=== PATIENT | male | born 1940 ===

== ENCOUNTER 2017-04-18 14:04 | Emergency (ER) | payer SELFPAY ==
[2017-04-18 14:14] VITALS: BP 146/80; PULSE 100; RESP 18; TEMP 96.9; O2SAT 99
--- NOTE | 2017-04-18 15:06 | ED PDOC ---
HPI: General Adult History Per: Patient <Brown,Jake - Last Filed: 04/18/17 14:59> <Vicente Garcia - Last Filed: 04/18/17 15:41> Time Seen by Provider: 04/18/17 14:20 Chief Complaint (Nursing): Abnormal Skin Integrity Additional Complaint(s): 77 y/o M c/o facial rash that began 8 days ago. Rash is over nose and bilateral maxillary areas, non-pruritic, painless, extending into left lip and now associated with tender left labial swelling since 3 days ago. No recent change in soap, clothing or contagious contact. Pt denies headache, fever, CP, SOB, abdominal pain or trauma. NKA. Medications: none PMHx: DM 2. HLD. Chronic bilateral lower back pain. PSHx: denied SHx: Denies Tobacco, Alcohol or rec drugs. 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 (Jake Brown) Supervising Attending Note <Jake Brown - Last Filed: 04/18/17 14:59> - Supervising Attending Note The Documented history was done by the: Physician Director Orange The documented physical exam was done by the: Physician Director Orange The documented procedures were done by the: Physician Director Orange - Attestation: I have personally seen and examined this patient.: Yes I have fully participated in the care of the patient.: Yes I have reviewed all pertinent clinical information, including history, physical exam and plan: Yes <Vicente Garcia - Last Filed: 04/18/17 15:41> - Notes: Notes:: Rash over face. No pain. No new soap, lotion, or anything new or different. (Vicente Garcia) Past Medical History - Medical History PMH: Diabetes, Hypercholesterolemia - Surgical History Surgical History: No Surg Hx - Family History Family History: States: No Known Family Hx <Jake Brown - Last Filed: 04/18/17 14:59> <Vicente Garcia - Last Filed: 04/18/17 15:41> Vital Signs: Last Vital Signs Temp 96.9 F L 04/18/17 14:09 Pulse 100 H 04/18/17 14:09 Resp 18 04/18/17 14:09 BP 146/80 04/18/17 14:09 Pulse Ox 99 04/18/17 15:20 - Home Medications Home Medications: Ambulatory Orders Medication Instructions Recorded DiphenhydrAMINE [Benadryl] 25 mg PO TID PRN 5 Days cap 04/18/17 predniSONE [predniSONE Tab] 20 mg PO BID 5 Days tab 04/18/17 - Allergies Allergies/Adverse Reactions: Allergies Allergy/AdvReac Type Severity Reaction Status Date / Time No Known Allergies Allergy Verified 01/04/16 15:45 Review of Systems Constitutional: Negative for: Fever, Chills Cardiovascular: Negative for: Chest Pain, Palpitations Respiratory: Negative for: Cough, Shortness of Breath, SOB with Exertion Gastrointestinal: Negative for: Nausea, Vomiting, Abdominal Pain Musculoskeletal: Positive for: Back Pain Skin: Positive for: Rash <Jake Brown - Last Filed: 04/18/17 14:59> Physical Exam - Physical Exam Appears: Positive for: Well, No Acute Distress Head Exam: Positive for: ATRAUMATIC Skin: Positive for: Rash (Face: presence of erythematous blanching maculo- papular dermatitis on nose and b/l maxillary areas.) ENT: Positive for: Normal ENT Inspection <Jake Brown - Last Filed: 04/18/17 14:59> - Physical Exam Head Exam: Positive for: ATRAUMATIC Skin: Positive for: Rash Neck: Positive for: Normal, Painless ROM, Supple Cardiovascular/Chest: Positive for: Regular Rate, Rhythm Respiratory: Positive for: Normal Breath Sounds <Vicente Garcia - Last Filed: 04/18/17 15:41> - ECG O2 Sat by Pulse Oximetry: 99 <Jake Brown - Last Filed: 04/18/17 14:59> <Vicente Garcia - Last Filed: 04/18/17 15:41> - Progress ED Course And Treament: 1535: Atypical dermatitis likely. Fu with clinic. AAOx3. Pain free. Tolerated PO. Ambulated with no issues. (Vicente Garcia) Medical Decision Making <Jake Brown - Last Filed: 04/18/17 14:59> <Vicente Garcia - Last Filed: 04/18/17 15:41> Medical Decision Makin77 y/o M presenting with facial maculopapular dermatitis. Plan: --Benadryl --Prednisone (Jake Brown) Disposition <Jake Brown - Last Filed: 04/18/17 14:59> - Patient ED Disposition Is Patient to be Admitted: No Counseled Patient/Family Regarding: Studies Performed, Diagnosis, Need For Followup, Rx Given - Disposition Disposition: Routine/Home Disposition Time: 15:36 <Vicente Garcia - Last Filed: 04/18/17 15:41> - Clinical Impression Clinical Impression: Dermatitis - Disposition Referrals: [facility] [Outside] - 04/19/17 Condition: STABLE Additional Instructions: Return if not better in 3 days. Prescriptions: DiphenhydrAMINE [Benadryl] 25 mg PO TID PRN 5 Days cap PRN Reason: Itching / Pruritus predniSONE [predniSONE Tab] 20 mg PO BID 5 Days tab Instructions: Dermatitis (ED) Forms: [employer] (Djiboutian) Print Language: GREENLANDIC
== END 2017-04-18 15:49 | disposition home or self-care (01) ==
LOC: H.ER 14:04
DX: L30.9 Dermatitis, unspecified (principal); E11.9 Type 2 diabetes mellitus without complications; E78.00 Pure hypercholesterolemia, unspecified

== ENCOUNTER 2017-09-04 13:25 | Inpatient (IN) | payer MEDICAID, OTHER ==
[2017-09-04] MEDS ORDERED: Sodium Chloride 0.9% 1,000 ML IV STA (14:08)
--- NOTE | 2017-09-04 14:12 | ED PDOC ---
HPI: General Adult Time Seen by Provider: 09/04/17 13:41 Chief Complaint (Nursing): Abnormal Labs History Per: Patient Onset/Duration Of Symptoms: Days (1) Current Symptoms Are (Timing): Still Present Severity: Moderate Pain Scale Rating Of: 0 Additional Complaint(s): Referred from [facility] for generalized weakness . Had outpt blood work this AM revealing pancytopenia with Hgb 6.2. No active bleeding . Denies chest pain, abd pain hematochezia, melena, or hematemesis. Past Medical History Vital Signs: Last Vital Signs Temp 98.1 F 09/04/17 13:30 Pulse 106 H 09/04/17 13:30 Resp 16 09/04/17 13:30 BP 154/75 H 09/04/17 13:30 Pulse Ox 100 09/04/17 13:30 - Medical History PMH: Diabetes, Hypercholesterolemia - Family History Family History: States: Unknown Family Hx - Home Medications Home Medications: Ambulatory Orders Medication Instructions Recorded DiphenhydrAMINE [Benadryl] 25 mg PO TID PRN 5 Days cap 04/18/17 predniSONE [predniSONE Tab] 20 mg PO BID 5 Days tab 04/18/17 - Allergies Allergies/Adverse Reactions: Allergies Allergy/AdvReac Type Severity Reaction Status Date / Time No Known Allergies Allergy Verified 01/04/16 15:45 Review of Systems ROS Statement: Except As Marked, All Systems Reviewed And Found Negative Constitutional: Positive for: Weakness, Malaise Cardiovascular: Negative for: Chest Pain Respiratory: Negative for: Shortness of Breath Gastrointestinal: Negative for: Nausea, Vomiting, Abdominal Pain, Diarrhea, Melena, Hematochezia, Hematemesis Genitourinary Male: Negative for: Hematuria Physical Exam - Reviewed Nursing Documentation Reviewed: Yes Vital Signs Reviewed: Yes - Physical Exam Appears: Positive for: Non-toxic, No Acute Distress Head Exam: Positive for: ATRAUMATIC, NORMAL INSPECTION, NORMOCEPHALIC Skin: Positive for: Normal Color, Warm, DRY Eye Exam: Positive for: EOMI, PERRL. Negative for: Normal appearance ( Conjunctivae pale) ENT: Positive for: Normal ENT Inspection Neck: Positive for: Normal, Painless ROM Cardiovascular/Chest: Positive for: Regular Rate, Rhythm Respiratory: Positive for: CNT, Normal Breath Sounds Gastrointestinal/Abdominal: Positive for: Normal Exam, Bowel Sounds, Soft Back: Positive for: Normal Inspection Extremity: Positive for: Normal ROM Neurologic/Psych: Positive for: Alert, Oriented - ECG O2 Sat by Pulse Oximetry: 100 Disposition - Clinical Impression Clinical Impression: Diabetes mellitus, Pancytopenia - Patient ED Disposition Is Patient to be Admitted: Yes - Disposition Disposition Time: 14:13 Condition: FAIR - Pt Status Changed To: Hospital Disposition Of: Inpatient - Admit Certification Admit to Inpatient:: After my assessment, the patient will require hospitalization for at least two midnights. This is because of the severity of symptoms shown, intensity of services needed, and/or the medical risk in this patient being treated as an outpatient. - POA Present On Arrival: None
[2017-09-04 14:46] LABS: BASO % 0.6 % (0.0-2.0); EOS % 1.3 % (0.0-4.0); LYMPH # 0.8 K/uL (1.0-4.3); LYMPH % 30.2 % (20.0-40.0); MEAN CELL VOLUME 92.6 fl (80.0-94.0); MEAN CORPUSCULAR HEMOGLOBIN 30.9 pg (27.0-31.0); MEAN CORPUSCULAR HGB CONC 33.4 g/dL (33.0-37.0); MEAN PLATELET VOLUME 7.3 fl (7.2-11.7); MONO % 36.1 % (0.0-10.0); NEUT # 0.9 K/uL (1.8-7.0); NEUT % 31.8 % (50.0-75.0); NRBC % 0.4 % (0.0-0.0); RED CELL DISTRIBUTION WIDTH 17.6 % (11.5-14.5); WHITE BLOOD COUNT 2.8 K/uL (4.8-10.8)
[2017-09-04 14:55] LABS: ALB/GLOB RATIO 0.9 (1.0-2.1); ALBUMIN 3.3 g/dL (3.5-5.0); CALCIUM 8.6 mg/dL (8.4-10.2)
[2017-09-04 14:58] LABS: HEMOGLOBIN 5.9 g/dL (12.0-18.0)
[2017-09-04 15:02] LABS: PLATELET COUNT 28 K/uL (130-400)
[2017-09-04 15:42] LABS: BASOPHIL 1 % (0-2); LYMPHOCYTE 38 % (20-50); MONOCYTE 29 % (0-10); NEUTROPHIL 32 % (42-75); PLATELET ESTIMATE DECREASED (NORMAL); TOTAL CELLS COUNTED 100
[2017-09-04 15:43] LABS: ANISOCYTOSIS SLIGHT
[2017-09-04 15:44] LABS: HYPOCHROMIC MODERATE; OVALOCYTES SLIGHT; SCHISTOCYTES SLIGHT; TEARDROP CELLS SLIGHT
--- NOTE | 2017-09-04 16:32 | CP.PCM.HP ---
History of Present Illness - History of Present Illness History of Present Illness: Vijay Bravo is a 77 yo M with PMH diabetes and hyperlipidemia presented to ED after receiving a phone call from the clinic about abnormal labs that he had drawn in the outpatient lab this morning. His outpatient labwork revealed H/H of 6.2/18.1, and a platelet count of 28. Pt admits to some occasional dizziness that has not been daily or debilitating, denies loss of balance, denies chest palpitations and/or shortness of breath. Denies hematuria , or monica blood in the stool. Complains of back pain and bilateral upper leg (thigh) and difficulty walking because of it; states he can walk 1.5 blocks at a time without stopping because of pain. Does not get short of breath. PMD: [facility], Dr. Martinez. PMH: DM2, HLD (does not take any medications) Past Surg hx: L foot Social hx: denies smoking now and in the past, denies alcohol use, denies drug use Family hx: mom w/ bone cancer, other family members w/ DM2 Allergies: NKDA Next of kin: Ottoniel Diaz (son) [phone] Code status: full code ED course: Vital signs - systolic BP in 150s; HR 90s-110s, afebrile, normal respirations/ O2 sat CBC redrawn- pancytopenia. WBC 2.8, Hgb 5.9, Hct 17.6, Plt 28 CMP: BUN 39, Cr 1.9 Present on Admission - Present on Admission Any Indicators Present on Admission: No Review of Systems - Constitutional Constitutional: absent: Chills, Fatigue, Lethargy, Night Sweats - EENT Eyes: As Per HPI, Change in Vision - Cardiovascular Cardiovascular: absent: Chest Pain, Dyspnea, Leg Edema - Respiratory Respiratory: absent: Dyspnea, Hemoptysis, Dyspnea on Exertion - Gastrointestinal Gastrointestinal: absent: Abdominal Pain, Diarrhea, Melena, Nausea, Vomiting - Genitourinary Genitourinary: As Per HPI. absent: Change in Urinary Stream, Hematuria - Musculoskeletal Musculoskeletal: As Per HPI, Arthralgias, Back Pain. absent: Numbness, Tingling - Integumentary Integumentary: absent: Bleeding Lesions Additional comments: malar-like rash on face - Neurological Neurological: As Per HPI. absent: Abnormal Gait, Focal Weakness, Headaches, Lack of Coordination, Paresthesias - Endocrine Endocrine: As Per HPI - Hematologic/Lymphatic Hematologic: absent: Easy Bleeding, Easy Bruising Past Patient History - Past Medical History & Family History Past Medical History?: Yes - Past Social History Smoking Status: Never Smoked Alcohol: None Drugs: Denies Home Situation {Lives}: Alone - CARDIAC Hx Cardiac Disorders: Yes Hx Hypercholesterolemia: Yes - PULMONARY Hx Respiratory Disorders: No - NEUROLOGICAL Hx Neurological Disorder: No - HEENT Hx HEENT Problems: No - RENAL Hx Chronic Kidney Disease: No - ENDOCRINE/METABOLIC Hx Endocrine Disorders: Yes (DM) Hx Diabetes Mellitus Type 2: Yes - HEMATOLOGICAL/ONCOLOGICAL Hx Blood Disorders: No - INTEGUMENTARY Hx Dermatological Problems: No - MUSCULOSKELETAL/RHEUMATOLOGICAL Hx Musculoskeletal Disorders: Yes Hx Back Pain: Yes - GASTROINTESTINAL Hx Gastrointestinal Disorders: No - GENITOURINARY/GYNECOLOGICAL Hx Genitourinary Disorders: No - PSYCHIATRIC Hx Psychophysiologic Disorder: No Hx Substance Use: No - SURGICAL HISTORY Hx Surgeries: Yes Other/Comment: Left foot surgery - ANESTHESIA Hx Anesthesia: Yes Hx Anesthesia Reactions: No Hx Malignant Hyperthermia: No Meds Allergies/Adverse Reactions: Allergies Allergy/AdvReac Type Severity Reaction Status Date / Time No Known Allergies Allergy Verified 01/04/16 15:45 Physical Exam - Constitutional Appears: Non-toxic, No Acute Distress, Younger Than Stated Age - Head Exam Head Exam: ATRAUMATIC, NORMAL INSPECTION - Eye Exam Eye Exam: EOMI Additional comments: pale conjunctiva - ENT Exam ENT Exam: Mucous Membranes Moist, Normal Exam - Neck Exam Neck exam: Positive for: Normal Inspection. Negative for: Lymphadenopathy - Respiratory Exam Respiratory Exam: Clear to Auscultation Bilateral, NORMAL BREATHING PATTERN. absent: Wheezes, Respiratory Distress - Cardiovascular Exam Cardiovascular Exam: REGULAR RHYTHM, +S1, +S2 - GI/Abdominal Exam GI & Abdominal Exam: Normal Bowel Sounds, Soft. absent: Distended, Tenderness - Extremities Exam Extremities exam: Positive for: normal inspection. Negative for: calf tenderness, joint swelling, pedal edema - Back Exam Back exam: NORMAL INSPECTION. absent: paraspinal tenderness - Neurological Exam Neurological exam: Alert - Psychiatric Exam Psychiatric exam: Normal Affect, Normal Mood - Skin Skin Exam: Dry, Intact, Normal Color, Warm Results - Vital Signs Recent Vital Signs: Last Vital Signs Temp 98.3 F 09/04/17 14:35 Pulse 106 H 09/04/17 14:35 Resp 18 09/04/17 14:35 BP 154/75 H 09/04/17 14:35 Pulse Ox 100 09/04/17 14:35 - Labs Result Diagrams: 09/04/17 14:26 09/04/17 14:26 Labs: Laboratory Results - last 24 hr 09/04/17 09/04/17 09/04/17 14:26 14:26 14:26 WBC 2.8 L RBC 1.90 L Hgb 5.9 L* Hct 17.6 L MCV 92.6 MCH 30.9 MCHC 33.4 RDW 17.6 H Plt Count 28 L* MPV 7.3 Neut % (Auto) 31.8 L Lymph % (Auto) 30.2 [place] % (Auto) 36.1 H Eos % (Auto) 1.3 Baso % (Auto) 0.6 Neut # (Auto) 0.9 L Lymph # (Auto) 0.[address] [place] # (Auto) 1.0 H Eos # (Auto) 0.0 Baso # (Auto) 0.0 Neutrophils % (Manual) 32 L Lymphocytes % (Manual) 38 Monocytes % (Manual) 29 H Basophils % (Manual) 1 Platelet Estimate Decreased L Hypochromasia (manual) Moderate Anisocytosis (manual) Slight Tear Drop Cells Slight Ovalocytes Slight Schistocytes Slight Retic Count 0.9 Sodium 140 Potassium 4.2 Chloride 104 Carbon Dioxide 24 Anion Gap 16 BUN 39 H Creatinine 1.9 H Est GFR ( Amer) 42 Est GFR (Non-Af Amer) 34 Random Glucose 130 H Calcium 8.6 Total Bilirubin 0.3 AST 28 ALT 34 Alkaline Phosphatase 84 Lactate Dehydrogenase 496 Total Protein 7.1 Albumin 3.3 L Globulin 3.8 Albumin/Globulin Ratio 0.9 L Blood Type O POSITIVE Antibody Screen Negative Crossmatch See Detail BBK History Checked No verified bt Assessment & Plan - Assessment and Plan (Free Text) Assessment: 77 yo M with PMH diabetes, HLD, admitted due to pancytopenia and Hgb 6.2 on outpatient labs. Plan: # Pancytopenia - Heme/onc consult- Dr. Pace - H/H in ED 5.9/17.6 - WBC 2.8 - Plt 28 - Retic count 0.9 - Transfuse 2U PRBC - Pending labs: iron studies: ferritin, iron, TIBC, LDH, folate, B12 - FOBT - Urinalysis - O2 at 2L via NC - f/u CBC tomorrow # CKD - GFR 34; last known GFR 49 in 03/2017; >60 in 2016 - BUN 39, Cr 1.9 - IV hydration - f/u BMP # Rash on face - malar-like - JOSE LUIS, ESR # Diabetes Mellitus - Not taking any medications - HbA1c 6.6 (down from 8.3 in 03/2017, 11.7 in 2015) - Accuchecks, monitor - Consistent Carb Diet # Back/Hip Pain - had xrays this am (given as outpt prescription) for lumbar spine, hip/pelvis, thoracic spine - thoracic spine xray: minor multilevel degenerative spondylosis; no evidence of acute compression fractures, no retropulsed fragments - hip/pelvis xray- no evidence of acute displaced fracture nor dislocation; minor degenerative osteoarthritis. - lumbar spine xray- no acute fractures; multilevel degenerative spondylosis # Hypertension - hx of htn, does not take medications at home - systolic in 150s; - monitor for acute changes # Hyperlipidemia - hx of hld, does not take any meds at home - total chol 161, LDL 95, HDL 31, trig 88 # DVT prophylaxis - SCDs
[2017-09-04 17:06] LABS: IRON 25 ug/dL (49-181)
[2017-09-04 17:15] LABS: % IRON SATURATION 13 % (20-55); TOTAL IRON BINDING CAPACITY 203 ug/dL (250-450)
[2017-09-04 20:41] LABS: SQUAMOUS EPITHIAL < 1 /hpf (0-5); URINE BACTERIA RARE (<OCC); URINE BILIRUBIN NEGATIVE (NEGATIVE); URINE BLOOD MODERATE (NEGATIVE); URINE CLARITY CLEAR (Clear); URINE COLOR YELLOW (YELLOW); URINE GLUCOSE (UA) NEG (Normal); URINE LEUKOCYTE ESTERASE NEG Leu/uL (Negative); URINE PROTEIN 100 mg/dL (NEGATIVE); URINE UROBILINOGEN 0.2-1.0 mg/dL (0.2-1.0)
[2017-09-04 21:31] LABS: FOLATE 10.2 ng/mL
--- NOTE | 2017-09-04 21:47 | CP.PCM.CON ---
History of Present Illness - History of Present Illness History of Present Illness: 77 year old male with a history of DM, sent from the clinic with pancytopenia. The patient is currently s/p PRBC transfusion and reports to feeling better. He denies abnormal bleeding and bruising. He is unaware of having blood problems in the past but has been feeling more fatigued these last few weeks. Past medical history: DM, HL Past surgical history: Foot surgery Family history: Mother had bone cancer Social history: Denies tobacco, alcohol, and illicit drug use. Allergies: NKA Review of systems: All remaining review of systems including HEENT, cardiovascular, respiratory, gastrointestinal, genitourinary, musculoskeletal, dermatologic, neurologic, and psychiatric are negative unless mentioned in the HPI. Past Patient History - Past Medical History & Family History Past Medical History?: Yes - Past Social History Smoking Status: Never Smoked Alcohol: None Drugs: Denies Home Situation {Lives}: Alone - CARDIAC Hx Cardiac Disorders: Yes Hx Hypercholesterolemia: Yes - PULMONARY Hx Respiratory Disorders: No - NEUROLOGICAL Hx Neurological Disorder: No - HEENT Hx HEENT Problems: No - RENAL Hx Chronic Kidney Disease: No - ENDOCRINE/METABOLIC Hx Endocrine Disorders: Yes (DM) Hx Diabetes Mellitus Type 2: Yes - HEMATOLOGICAL/ONCOLOGICAL Hx Blood Disorders: No - INTEGUMENTARY Hx Dermatological Problems: No - MUSCULOSKELETAL/RHEUMATOLOGICAL Hx Musculoskeletal Disorders: Yes Hx Back Pain: Yes - GASTROINTESTINAL Hx Gastrointestinal Disorders: No - GENITOURINARY/GYNECOLOGICAL Hx Genitourinary Disorders: No - PSYCHIATRIC Hx Psychophysiologic Disorder: No Hx Substance Use: No - SURGICAL HISTORY Hx Surgeries: Yes Other/Comment: Left foot surgery - ANESTHESIA Hx Anesthesia: Yes Hx Anesthesia Reactions: No Hx Malignant Hyperthermia: No Meds Home Medications: Home Medication List Medication Instructions Recorded Confirmed Type Acetaminophen [Tylenol 325mg tab] 975 mg PO Q8 #84 tab 09/05/17 Rx Docusate [Colace] 100 mg PO DAILY #7 cap 09/05/17 Rx Ferrous Sulfate [Feosol] 325 mg PO TID #21 tab 09/05/17 Rx Allergies/Adverse Reactions: Allergies Allergy/AdvReac Type Severity Reaction Status Date / Time No Known Allergies Allergy Verified 01/04/16 15:45 - Medications Medications: Current Medications Influenza Virus Vaccine (Afluria (Pf)(18yr & Older)) 0.5 ml IM .ONCE ONE Stop: 09/05/17 09:01 Pneumococcal Polyvalent Vaccine (Pneumovax 23 Vaccine) 0.5 ml IM .ONCE ONE Stop: 09/05/17 09:01 Physical Exam - Head Exam Head Exam: ATRAUMATIC - Eye Exam Eye Exam: Normal appearance - ENT Exam ENT Exam: Mucous Membranes Dry - Respiratory Exam Respiratory Exam: NORMAL BREATHING PATTERN - Cardiovascular Exam Cardiovascular Exam: +S1, +S2 - GI/Abdominal Exam GI & Abdominal Exam: Normal Bowel Sounds - Extremities Exam Extremities exam: Positive for: normal inspection - Neurological Exam Neurological exam: Oriented x3 - Psychiatric Exam Psychiatric exam: Normal Affect, Normal Mood - Skin Skin Exam: Warm Results - Vital Signs Recent Vital Signs: Last Vital Signs Temp 99.6 F 09/04/17 20:03 Pulse 88 09/04/17 20:03 Resp 20 09/04/17 20:03 BP 158/75 H 09/04/17 20:03 Pulse Ox 98 09/04/17 20:03 - Labs Result Diagrams: 09/05/17 04:25 09/05/17 04:25 Labs: Laboratory Results - last 24 hr 09/04/17 09/04/17 09/04/17 14:26 14:26 14:26 WBC 2.8 L RBC 1.90 L Hgb 5.9 L* Hct 17.6 L MCV 92.6 MCH 30.9 MCHC 33.4 RDW 17.6 H Plt Count 28 L* MPV 7.3 Neut % (Auto) 31.8 L Lymph % (Auto) 30.2 [place] % (Auto) 36.1 H Eos % (Auto) 1.3 Baso % (Auto) 0.6 Neut # (Auto) 0.9 L Lymph # (Auto) 0.8 L [place] # (Auto) 1.0 H Eos # (Auto) 0.0 Baso # (Auto) 0.0 Neutrophils % (Manual) 32 L Lymphocytes % (Manual) 38 Monocytes % (Manual) 29 H Basophils % (Manual) 1 Platelet Estimate Decreased L Hypochromasia (manual) Moderate Anisocytosis (manual) Slight Tear Drop Cells Slight Ovalocytes Slight Schistocytes Slight Retic Count 0.9 Sodium 140 Potassium 4.2 Chloride 104 Carbon Dioxide 24 Anion Gap 16 BUN 39 H Creatinine 1.9 H Est GFR ( Amer) 42 Est GFR (Non-Af Amer) 34 POC Glucose (mg/dL) Random Glucose 130 H Calcium 8.6 Iron TIBC % Saturation Ferritin Total Bilirubin 0.3 AST 28 ALT 34 Alkaline Phosphatase 84 Lactate Dehydrogenase 496 Total Protein 7.1 Albumin 3.3 L Globulin 3.8 Albumin/Globulin Ratio 0.9 L Vitamin B12 Folate Urine Color Urine Clarity Urine pH Ur Specific [place] Urine Protein Urine Glucose (UA) Urine Ketones Urine Blood Urine Nitrate Urine Bilirubin Urine Urobilinogen Ur Leukocyte Esterase Urine RBC (Auto) Urine Microscopic WBC Ur Squamous Epith Cells Urine Bacteria Blood Type O POSITIVE Blood Type Confirm Antibody Screen Negative Crossmatch See Detail BBK History Checked No verified bt 09/04/17 09/04/17 09/04/17 14:32 16:15 16:15 WBC RBC Hgb Hct MCV MCH MCHC RDW Plt Count MPV Neut % (Auto) Lymph % (Auto) [place] % (Auto) Eos % (Auto) Baso % (Auto) Neut # (Auto) Lymph # (Auto) [place] # (Auto) Eos # (Auto) Baso # (Auto) Neutrophils % (Manual) Lymphocytes % (Manual) Monocytes % (Manual) Basophils % (Manual) Platelet Estimate Hypochromasia (manual) Anisocytosis (manual) Tear Drop Cells Ovalocytes Schistocytes Retic Count Sodium Potassium Chloride Carbon Dioxide Anion Gap BUN Creatinine Est GFR ( Amer) Est GFR (Non-Af Amer) POC Glucose (mg/dL) Random Glucose Calcium Iron 25 L TIBC 203 L % Saturation 13 L Ferritin 355.0 Total Bilirubin AST ALT Alkaline Phosphatase Lactate Dehydrogenase Total Protein Albumin Globulin Albumin/Globulin Ratio Vitamin B12 332 Folate 10.2 Urine Color Urine Clarity Urine pH Ur Specific [place] Urine Protein Urine Glucose (UA) Urine Ketones Urine Blood Urine Nitrate Urine Bilirubin Urine Urobilinogen Ur Leukocyte Esterase Urine RBC (Auto) Urine Microscopic WBC Ur Squamous Epith Cells Urine Bacteria Blood Type Blood Type Confirm O POSITIVE Antibody Screen Crossmatch BBK History Checked 09/04/17 09/04/17 09/04/17 17:24 20:31 21:12 WBC RBC Hgb Hct MCV MCH MCHC RDW Plt Count MPV Neut % (Auto) Lymph % (Auto) [place] % (Auto) Eos % (Auto) Baso % (Auto) Neut # (Auto) Lymph # (Auto) [place] # (Auto) Eos # (Auto) Baso # (Auto) Neutrophils % (Manual) Lymphocytes % (Manual) Monocytes % (Manual) Basophils % (Manual) Platelet Estimate Hypochromasia (manual) Anisocytosis (manual) Tear Drop Cells Ovalocytes Schistocytes Retic Count Sodium Potassium Chloride Carbon Dioxide Anion Gap BUN Creatinine Est GFR ( Amer) Est GFR (Non-Af Amer) POC Glucose (mg/dL) 92 140 H Random Glucose Calcium Iron TIBC % Saturation Ferritin Total Bilirubin AST ALT Alkaline Phosphatase Lactate Dehydrogenase Total Protein Albumin Globulin Albumin/Globulin Ratio Vitamin B12 Folate Urine Color Yellow Urine Clarity Clear Urine pH 6.0 Ur Specific [place] 1.012 Urine Protein 100 Urine Glucose (UA) Neg Urine Ketones Negative Urine Blood Moderate Urine Nitrate Negative Urine Bilirubin Negative Urine Urobilinogen 0.2-1.0 Ur Leukocyte Esterase Neg Urine RBC (Auto) 41 H Urine Microscopic WBC < 1 Ur Squamous Epith Cells < 1 Urine Bacteria Rare Blood Type Blood Type Confirm Antibody Screen Crossmatch BBK History Checked Assessment & Plan (1) Pancytopenia Assessment and Plan: No evidence of nutritional deficiency will need bone marrow biopsy in AM Thank you for this interesting consult. Status: Acute
[2017-09-05 06:03] LABS: CALCIUM 8.4 mg/dL (8.4-10.2)
[2017-09-05 06:04] LABS: BASO % 0.5 % (0.0-2.0); EOS # 0.1 K/uL (0.0-0.7); EOS % 2.1 % (0.0-4.0); HEMOGLOBIN 8.2 g/dL (12.0-18.0); LYMPH # 1.1 K/uL (1.0-4.3); LYMPH % 33.6 % (20.0-40.0); MEAN CELL VOLUME 89.7 fl (80.0-94.0); MEAN CORPUSCULAR HEMOGLOBIN 30.4 pg (27.0-31.0); MEAN CORPUSCULAR HGB CONC 33.9 g/dL (33.0-37.0); MEAN PLATELET VOLUME 7.6 fl (7.2-11.7); MONO # 0.9 K/uL (0.0-0.8); MONO % 28.9 % (0.0-10.0); NEUT # 1.1 K/uL (1.8-7.0); NEUT % 34.9 % (50.0-75.0); NRBC % 0.2 % (0.0-0.0); RBC 2.71 Mil/uL (4.40-5.90); RED CELL DISTRIBUTION WIDTH 16.6 % (11.5-14.5); WHITE BLOOD COUNT 3.2 K/uL (4.8-10.8)
[2017-09-05 06:09] LABS: PLATELET COUNT 27 K/uL (130-400)
--- NOTE | 2017-09-05 07:39 | CP.PCM.PN ---
Subjective - Date & Time of Evaluation Date of Evaluation: 09/05/17 Time of Evaluation: 07:35 - Subjective Subjective: Pt was seen and evaluated at bedside this am; complained of back pain that has been present for 2-3 months that he was also evaluated in the clinic for. Denies dizziness, chest pain, shortness of breath. S/p transfusion 2U PRBC. Objective - Vital Signs/Intake and Output Vital Signs (last 24 hours): Temp Pulse Resp BP Pulse Ox 98.0 F 77 18 157/76 H 97 09/05/17 05:30 09/05/17 05:30 09/05/17 05:30 09/05/17 05:30 09/05/17 05:30 - Medications Medications: Current Medications Influenza Virus Vaccine (Afluria (Pf)(18yr & Older)) 0.5 ml IM .ONCE ONE Stop: 09/05/17 09:01 Pneumococcal Polyvalent Vaccine (Pneumovax 23 Vaccine) 0.5 ml IM .ONCE ONE Stop: 09/05/17 09:01 - Labs Labs: 09/05/17 04:25 09/05/17 04:25 - Constitutional Appears: Non-toxic, Younger Than Stated Age - ENT Exam ENT Exam: Mucous Membranes Moist - Respiratory Exam Respiratory Exam: Clear to Ausculation Bilateral, NORMAL BREATHING PATTERN. absent: Wheezes, Respiratory Distress - GI/Abdominal Exam GI & Abdominal Exam: Soft, Normal Bowel Sounds - Extremities Exam Extremities Exam: Normal Capillary Refill, Normal Inspection. absent: Pedal Edema - Neurological Exam Neurological Exam: Alert, Awake, Oriented x3 - Psychiatric Exam Psychiatric exam: Normal Mood - Skin Skin Exam: Dry, Intact, Normal Color, Warm Assessment and Plan - Assessment and Plan (Free Text) Assessment: 77 yo M with PMH HTN, DM2, back pain, admitted due to pancytopenia; s/p 2u PRBC. Plan: # Pancytopenia - Heme/onc consult- Dr. Pace - H/H in ED 5.9/17.6, WBC 2.8, Plt 28, Retic count 0.9 - s/p 2U PRBC - repeat labs: WBC 3.2, H/H: 8.2/24.3, Plt 27 - iron studies: iron 355 wnl, TIBC 203 low, % saturation low, folate wnl, B12 wnl - FOBT pending - Urinalysis - moderate blood - O2 at 2L via NC - Coags - monitor CBC # Microscopic hematuria - Urine cytology # CKD - GFR 31; last known GFR 49 in 03/2017; >60 in 2015 - BUN 36, Cr 2.1 - IV hydration - renal u/s - f/u BMP # Rash on face - malar-like - ESR 95 - JOSE LUIS pending # Diabetes Mellitus - Not taking any medications - HbA1c 6.6 (down from 8.3 in 03/2017, 11.7 in 2015) - Accuchecks, monitor - Consistent Carb Diet # Back/Hip Pain - lumbar spine MRI w/o contrast - PT/OT eval and treat - had xrays 09/04 (given as outpt prescription) for lumbar spine, hip/pelvis, thoracic spine - thoracic spine xray: minor multilevel degenerative spondylosis; no evidence of acute compression fractures, no retropulsed fragments - hip/pelvis xray- no evidence of acute displaced fracture nor dislocation; minor degenerative osteoarthritis. - lumbar spine xray- no acute fractures; multilevel degenerative spondylosis # Hypertension - hx of htn, does not take medications at home - monitor for acute changes # Hyperlipidemia - hx of hld, does not take any meds at home - total chol 161, LDL 95, HDL 31, trig 88 # DVT prophylaxis - SCD/ambulation
[2017-09-05] MEDS ORDERED: Influenza Vaccine 18yr & older 0.5 ML/45 MCG SYR IM ONE (09:00)
[2017-09-05] MEDS ORDERED: Pneumococcal 23-Valent Vaccine IM ONE (09:00)
[2017-09-05 09:59] LABS: BANDS 4 % (0-2); EOSINOPHIL 2 % (0-7); LYMPHOCYTE 24 % (20-50); METAMYELOCYTE 1 % (0-0); MONOCYTE 32 % (0-10); MYELOCYTE 3 % (0-0); NEUTROPHIL 34 % (42-75); PLATELET ESTIMATE DECREASED (NORMAL); TOTAL CELLS COUNTED 100
[2017-09-05 10:02] LABS: ANISOCYTOSIS SLIGHT; HYPOCHROMIC SLIGHT; OVALOCYTES SLIGHT; POIKILOCYTOSIS SLIGHT
[2017-09-05 10:03] LABS: BURR CELLS SLIGHT; SPHEROCYTES SLIGHT
--- NOTE | 2017-09-05 10:15 | CARD ---
APPROVED REPORT EKG Measurement Heart [id number] <Conclusion> Normal sinus rhythm Normal ECG
--- NOTE | 2017-09-05 11:22 | US ---
PROCEDURE: Ultrasound of the Kidneys HISTORY: CKD COMPARISON: Correlations made to CT scans of the abdomen and pelvis dated 12/24/2014 and 02/26/2014. TECHNIQUE: Sonogram of the kidneys. FINDINGS: RIGHT KIDNEY: Measures: 13.8 x 8.4 x 9.0 cm. Nonobstructive midpole calculus measuring up to 1.2 cm. Cluster of upper pole cysts spanning 6.3 x 6.0 x 5.8 cm. Midpole cyst measuring 4.7 x 5.2 x 5.1 cm. Lower pole cyst spanning 6.3 x 6.2 x 6.1 cm. Normal in size, contour and echogenicity. No solid mass lesion or hydronephrosis visualized. LEFT KIDNEY: Measures: 10.5 x 5.4 x 5.3 cm. Upper pole septated cyst measuring 1.8 x 1.2 x 1.4 cm. Lower pole septated cyst measuring 1.0 x 1.0 x 1.3 cm. Normal in size, contour and echogenicity. No stone, solid mass lesion or hydronephrosis visualized. OTHER FINDINGS: None. IMPRESSION: Multiple right renal cysts, better depicted on CT scan of the abdomen and pelvis dated 02/26/2014. Left renal cyst. Nonobstructing right nephrolithiasis redemonstrated.
[2017-09-05 13:52] LABS: PROTHROMBIN TIME 12.7 Seconds (9.8-13.1)
[2017-09-05 13:53] LABS: INR 1.1 (0.9-1.2)
[2017-09-05] MEDS ORDERED: Lidocaine 2% Inj (20ml) INFIL ONE (14:03)
--- NOTE | 2017-09-05 16:01 | CP.PCM.PN ---
Subjective - Date & Time of Evaluation Date of Evaluation: 09/05/17 Time of Evaluation: 14:00 - Subjective Subjective: Bone marrow aspiration and biopsy procedure Indication: Pancytopenia - Time-out was called to confirm: patients name and date of , procedure, side and site of biopsy, safety procedures followed. - Performed by: self. - Informed consent: signed by patient. - Aspiration and biopsy site: [right] superior posterior iliac crest. - Patient position: [left lateral decubitus] - Preparation and technique: sterile preparation of site with Betadyne, Chloraprep, draped to expose aspirate/biopsy area, local anesthesia with 2% lidocaine (approximately 10ml), frequent pressure application on incision to maintain hemostasis. - Tissue obtained: bone marrow aspirate was not obtained (dry tap) but biopsy was successfully obtained in sterile manner. - Toleration of procedure and any complications: slight localized bleeding (<1ml ). Patient tolerated procedure well with minimal pain. Objective - Vital Signs/Intake and Output Vital Signs (last 24 hours): Temp Pulse Resp BP Pulse Ox 99.4 F 67 16 125/57 L 99 09/05/17 13:09 09/05/17 13:09 09/05/17 13:09 09/05/17 13:09 09/05/17 13:09 - Medications Medications: Current Medications Acetaminophen (Tylenol 325mg Tab) 975 mg PO Q8 CAMILLE - Labs Labs: 09/05/17 04:25 09/05/17 04:25 PT 12.7 Seconds (9.8-13.1) 09/05/17 11:41 INR 1.1 (0.9-1.2) 09/05/17 11:41 - Head Exam Head Exam: ATRAUMATIC - Eye Exam Eye Exam: Normal appearance - ENT Exam ENT Exam: Mucous Membranes Dry - Respiratory Exam Respiratory Exam: NORMAL BREATHING PATTERN - Cardiovascular Exam Cardiovascular Exam: +S1, +S2 - GI/Abdominal Exam GI & Abdominal Exam: Normal Bowel Sounds Assessment and Plan (1) Pancytopenia Assessment & Plan: s/p bone marrow biopsy outpatient f/u with me in 2 weeks Status: Acute
[2017-09-05 16:27] VITALS: BP 165/76; PULSE 84; RESP 18; TEMP 98.8; O2SAT 97
--- NOTE | 2017-09-06 19:59 | CP.PCM.DIS ---
Provider - Provider Date of Admission: 09/04/17 14:09 Attending physician: Karina Luevano MD Primary care physician: Dr. Martinez Consults: Hematology- Oncology: Dr. Pace Time Spent in preparation of Discharge (in minutes): 35 Diagnosis - Discharge Diagnosis (1) Pancytopenia Status: Acute Comment: Seen by Dr. Pace; bone marrow biopsy done while pt was admitted. S/p 2U PRBC, appropriate improvement in H/H. (2) Microscopic hematuria Status: Acute Comment: Urine cytology sent. (3) Back pain Status: Acute Comment: Pt given script for outpatient MRI of lumbar spine. Hospital Course - Lab Results Lab Results: Most Recent Lab Values WBC 3.2 K/uL (4.8-10.8) L 09/05/17 04:25 RBC 2.71 Mil/uL (4.40-5.90) L 09/05/17 04:25 Hgb 8.2 g/dL (12.0-18.0) L D 09/05/17 04:25 Hct 24.3 % (35.0-51.0) L 09/05/17 04:25 MCV 89.7 fl (80.0-94.0) D 09/05/17 04:25 MCH 30.4 pg (27.0-31.0) 09/05/17 04:25 MCHC 33.9 g/dL (33.0-37.0) 09/05/17 04:25 RDW 16.6 % (11.5-14.5) H 09/05/17 04:25 Plt Count 27 K/uL (130-400) L* 09/05/17 04:25 MPV 7.6 fl (7.2-11.7) 09/05/17 04:25 Neut % (Auto) 34.9 % (50.0-75.0) L 09/05/17 04:25 Lymph % (Auto) 33.6 % (20.0-40.0) 09/05/17 04:25 Harlan % (Auto) 28.9 % (0.0-10.0) H 09/05/17 04:25 Eos % (Auto) 2.1 % (0.0-4.0) 09/05/17 04:25 Baso % (Auto) 0.5 % (0.0-2.0) 09/05/17 04:25 Neut # (Auto) 1.1 K/uL (1.8-7.0) L 09/05/17 04:25 Lymph # (Auto) 1.1 K/uL (1.0-4.3) 09/05/17 04:25 Harlan # (Auto) 0.9 K/uL (0.0-0.8) H 09/05/17 04:25 Eos # (Auto) 0.1 K/uL (0.0-0.7) 09/05/17 04:25 Baso # (Auto) 0.0 K/uL (0.0-0.2) 09/05/17 04:25 Neutrophils % (Manual) 34 % (42-75) L 09/05/17 04:25 Band Neutrophils % 4 % (0-2) H 09/05/17 04:25 Lymphocytes % (Manual) 24 % (20-50) 09/05/17 04:25 Monocytes % (Manual) 32 % (0-10) H 09/05/17 04:25 Eosinophils % (Manual) 2 % (0-7) 09/05/17 04:25 Basophils % (Manual) 1 % (0-2) 09/04/17 14:26 Metamyelocytes % 1 % (0-0) H 09/05/17 04:25 Myelocytes % 3 % (0-0) H 09/05/17 04:25 Platelet Estimate Decreased (NORMAL) L 09/05/17 04:25 Hypochromasia (manual) Slight 09/05/17 04:25 Poikilocytosis (manual Slight 09/05/17 04:25 Anisocytosis (manual) Slight 09/05/17 04:25 Spherocytes Slight 09/05/17 04:25 Tear Drop Cells Slight 09/04/17 14:26 Ovalocytes Slight 09/05/17 04:25 [place] Cells Slight 09/05/17 04:25 Schistocytes Slight 09/04/17 14:26 ESR 95 mm/hr (0-20) H 09/05/17 04:25 Retic Count 0.9 % (0.5-1.5) 09/04/17 14:26 PT 12.7 Seconds (9.8-13.1) 09/05/17 11:41 INR 1.1 (0.9-1.2) 09/05/17 11:41 Sodium 140 mmol/l (132-148) 09/05/17 04:25 Potassium 4.7 MMOL/L (3.6-5.0) 09/05/17 04:25 Chloride 106 mmol/L (98-107) 09/05/17 04:25 Carbon Dioxide 21 mmol/L (22-30) L 09/05/17 04:25 Anion Gap 18 (10-20) 09/05/17 04:25 BUN 36 mg/dl (9-20) H 09/05/17 04:25 Creatinine 2.1 mg/dl (0.8-1.5) H 09/05/17 04:25 Est GFR ( Amer) 37 09/05/17 04:25 Est GFR (Non-Af Amer) 31 09/05/17 04:25 POC Glucose (mg/dL) 101 mg/dL (65-110) 09/05/17 15:53 Random Glucose 101 mg/dL (75-110) 09/05/17 04:25 Calcium 8.4 mg/dL (8.4-10.2) 09/05/17 04:25 Iron 25 ug/dL (49-181) L 09/04/17 16:15 TIBC 203 ug/dL (250-450) L 09/04/17 16:15 % Saturation 13 % (20-55) L 09/04/17 16:15 Ferritin 355.0 ng/Ml (17.9-464) 09/04/17 16:15 Total Bilirubin 0.3 mg/dl (0.2-1.3) 09/04/17 14:26 AST 28 U/L (17-59) 09/04/17 14:26 ALT 34 U/L (21-72) 09/04/17 14:26 Alkaline Phosphatase 84 U/L (38-126) 09/04/17 14:26 Lactate Dehydrogenase 496 U/L (313-618) 09/04/17 14:26 Total Protein 7.1 G/DL (6.3-8.2) 09/04/17 14:26 Albumin 3.3 g/dL (3.5-5.0) L 09/04/17 14:26 Globulin 3.8 gm/dL (2.2-3.9) 09/04/17 14:26 Albumin/Globulin Ratio 0.9 (1.0-2.1) L 09/04/17 14:26 Vitamin B12 332 pg/mL (239-931) 09/04/17 16:15 Folate 10.2 ng/mL 09/04/17 16:15 Urine Color Yellow (YELLOW) 09/04/17 20:31 Urine Clarity Clear (Clear) 09/04/17 20: Urine pH 6.0 (5.0-8.0) 09/04/17 20:31 Ur Specific [place] 1.012 (1.003-1.030) 09/04/17 20: Urine Protein 100 mg/dL (NEGATIVE) 09/04/17 20: Urine Glucose (UA) Neg mg/dL (Normal) 09/04/17 20: Urine Ketones Negative mg/dL (NEGATIVE) 09/04/17 20:31 Urine Blood Moderate (NEGATIVE) 09/04/17 20:31 Urine Nitrate Negative (NEGATIVE) 09/04/17 20: Urine Bilirubin Negative (NEGATIVE) 09/04/17 20:31 Urine Urobilinogen 0.2-1.0 mg/dL (0.2-1.0) 09/04/17 20:31 Ur Leukocyte Esterase Neg Patric/uL (Negative) 09/04/17 20:31 Urine RBC (Auto) 41 /hpf (0-3) H 09/04/17 20:31 Urine Microscopic WBC < 1 /hpf (0-5) 09/04/17 20:31 Ur Squamous Epith Cells < 1 /hpf (0-5) 09/04/17 20:31 Urine Bacteria Rare (<OCC) 09/04/17 20:31 Stool Occult Blood Positive (NEGATIVE) H 09/05/17 10:27 Blood Type O POSITIVE 09/04/17 14:26 Blood Type Confirm O POSITIVE 09/04/17 14:32 Antibody Screen Negative 09/04/17 14:26 Crossmatch See Detail 09/04/17 14:26 BBK History Checked No verified bt 09/04/17 14:26 - Hospital Course Hospital Course: Pt is a 77 yo M with PMH DM2, HTN who does not take any medications at home was admitted due to pancytopenia and Hgb 6.2 on outpatient labs. Pt was transfused 2U PRBC, with appriopriate increase in H/H. Heme-onc Dr. Pcae was consulted; pt underwent bone marrow biopsy and will follow up with Dr. Pace as outpatient. He was also given script for outpatient MRI of lumbar spine. When pt was seen and evaluated in the am of the day of discharge, he complained of back pain that has been present for 2-3 months that he was also evaluated in the clinic for. Denied dizziness, chest pain, shortness of breath, or any acute events. Discharge Exam - Head Exam Head Exam: ATRAUMATIC, NORMAL INSPECTION - Eye Exam Eye Exam: EOMI, Normal appearance - ENT Exam ENT Exam: Mucous Membranes Moist - Respiratory Exam Respiratory Exam: Clear to PA & Lateral, NORMAL BREATHING PATTERN, UNREMARKABLE. absent: Accessory Muscle Use, Decreased Breath Sounds, Wheezes, Respiratory Distress - Cardiovascular Exam Cardiovascular Exam: REGULAR RHYTHM, +S1, +S2 - GI/Abdominal Exam GI & Abdominal Exam: Normal Bowel Sounds, Soft, Unremarkable. absent: Tenderness - Extremities Exam Extremities exam: normal capillary refill, normal inspection, pedal pulses present - Neurological Exam Neurological exam: Alert, Oriented x3 - Psychiatric Exam Psychiatric exam: Normal Mood - Skin Skin Exam: Dry, Intact, Normal Color, Warm Discharge Plan - Discharge Medications Prescriptions: Acetaminophen [Tylenol 325mg tab] 975 mg PO Q8 #84 tab Docusate [Colace] 100 mg PO DAILY #7 cap Ferrous Sulfate [Feosol] 325 mg PO TID #21 tab - Follow Up Plan Condition: STABLE Disposition: HOME/ ROUTINE Instructions: Anemia Caused by Low Iron, Good Food Sources of Iron Additional Instructions: Follow up with Dr. Pace as outpatient. Follow up with your PMD Dr. Martinez on 09/11/17 at 11:20 am Referrals: [facility] [Outside] - 09/11/17 11:20 am (7Dr Chandrakant Martinez )
== END 2017-09-05 18:11 | disposition home or self-care (01) | DRG 810 ==
LOC: H.ER 13:25 → H.ERHOLD 14:09 → H.TEL 15:59
PROVIDERS: ADMIT Family Medicine Geriatric Medicine; ATTEND Family Medicine Geriatric Medicine
PROC: 30233N1 Transfusion of Nonautologous Red Blood Cells into Peripheral Vein, Percutaneous Approach (ICD-10-PCS; 2017-09-04)
PROC: 07DR3ZX Extraction of Iliac Bone Marrow, Percutaneous Approach, Diagnostic (ICD-10-PCS; principal; 2017-09-05)
PROC: 3E0234Z Introduction of Serum, Toxoid and Vaccine into Muscle, Percutaneous Approach (ICD-10-PCS; 2017-09-05)
DX: D61.818 Other pancytopenia (principal); E11.9 Type 2 diabetes mellitus without complications; R31.29 Other microscopic hematuria; E78.5 Hyperlipidemia, unspecified; I10 Essential (primary) hypertension; E78.00 Pure hypercholesterolemia, unspecified; M54.5 Low back pain; R21 Rash and other nonspecific skin eruption; Z23 Encounter for immunization

== ENCOUNTER 2017-09-28 14:35 | Observation (INO) | payer MEDICAID, SELFPAY ==
[2017-09-28] MEDS ORDERED: Epoetin Alfa 20000 UNIT/ML Inj IV STA (15:19)
--- NOTE | 2017-09-28 15:33 | ED PDOC ---
HPI: General Adult Time Seen by Provider: 09/28/17 14:56 Chief Complaint (Nursing): Abnormal Labs Chief Complaint (Provider): "i was in the clinic today and i was sent here for abnormal lab results" History Per: Patient, Family History/Exam Limitations: no limitations Additional Complaint(s): 77 y/o male, established [facility] pt, with a PMHx of HLD, NIDDM2, Anemia and recent diagnosis of Myelodysplastic Syndrome presents for evaluation of abnormal lab values. Pt and nephew at bedside report that he went for routine blood work as originally ordered and they found he had a low hemoglobin and low platelets. He denies any fever/chills, headaches, changes in vision, CP/SOB/Palpitations, N/V/ D/C, urinary symptoms, melena, hematochezia, hematuria, epistaxis, gingival bleeding, rash. PMD: [facility] (last visit 09/28/2017) PMHx: HLD, NIDDM2 Meds: none ALL: NKDA FamilyHx: mother: unspecified bone cancer SocialHx: denies ETOH/Tobacco/drug abuse Past Medical History Reviewed: Historical Data, Nursing Documentation, Vital Signs Vital Signs: Last Vital Signs Temp 97.3 F L 09/28/17 14:37 Pulse 88 09/28/17 14:37 Resp 16 09/28/17 14:37 BP 170/70 H 09/28/17 14:37 Pulse Ox 99 09/28/17 15:40 - Medical History PMH: Diabetes, Hypercholesterolemia Denies: Chronic Kidney Disease - Family History Family History: States: Unknown Family Hx - Home Medications Home Medications: Ambulatory Orders Medication Instructions Recorded Acetaminophen [Tylenol 325mg tab] 975 mg PO Q8 #84 tab 09/05/17 Docusate [Colace] 100 mg PO DAILY #7 cap 09/05/17 Ferrous Sulfate [Feosol] 325 mg PO TID #21 tab 09/05/17 - Allergies Allergies/Adverse Reactions: Allergies Allergy/AdvReac Type Severity Reaction Status Date / Time No Known Allergies Allergy Verified 01/04/16 15:45 Review of Systems ROS Statement: Except As Marked, All Systems Reviewed And Found Negative Constitutional: Negative for: Fever, Chills, Sweats, Weakness, Weight loss Eyes: Positive for: Eyelid Inflammation. Negative for: Vision Change, Conjunctivae Inflammation, Redness ENT: Positive for: Other (no nose bleed/mouth sores/bleeding from gums). Negative for: Nose Discharge, Nose Congestion, Mouth Pain, Mouth Swelling, Throat Pain Cardiovascular: Negative for: Chest Pain, Palpitations, Orthopnea, Paroxysmal Noc. Dyspnea, Edema, Light Headedness Respiratory: Negative for: Cough, Shortness of Breath, Hemoptysis, SOB with Exertion, Pleuritic Pain, Wheezing Gastrointestinal: Negative for: Nausea, Vomiting, Abdominal Pain, Diarrhea, Constipation, Melena, Hematochezia, Hematemesis Genitourinary Male: Negative for: Dysuria, Hematuria Skin: Negative for: Rash, Lesions, Bruising Neurological: Negative for: Weakness, Numbness, Incoordination, Change in Speech , Confusion, Seizures, Altered Mental Status, Headache, Dizziness Psych: Negative for: Anxiety, Depression Physical Exam - Reviewed Nursing Documentation Reviewed: Yes Vital Signs Reviewed: Yes - Physical Exam Appears: Positive for: Non-toxic, No Acute Distress Head Exam: Positive for: ATRAUMATIC, NORMAL INSPECTION, NORMOCEPHALIC Skin: Positive for: Normal Color, Warm, Dry. Negative for: Rash (no petechiae) Eye Exam: Positive for: EOMI, PERRL, Other (right upper eyelid stye ). Negative for: Nystagmus, Periorbital swelling, Periorbital tenderness, Conjunctival injection, Scleral icterus ENT: Positive for: Normal ENT Inspection, Other (no gingival petechaie, no bleeding, no epistaxis ). Negative for: Sinus Pain/Drainage, Nasal Congestion Neck: Positive for: Normal, Painless ROM, Supple. Negative for: Decreased ROM Cardiovascular/Chest: Positive for: Regular Rate, Rhythm. Negative for: Chest Non Tender, Edema, Gallop, JVD, Murmur, Irregularly Irregular Respiratory: Positive for: Normal Breath Sounds. Negative for: Decreased Breath Sounds, Accessory Muscle Use, Crackles, Rales, Rhonchi, Stridor, Wheezing , Respiratory Distress Pulses-Dorsalis Pedis (L): 2+ Pulses-Dorsalis Pedis (R): 2+ Pulses-Radial (L): 2+ Pulses-Radial (R): 2+ Gastrointestinal/Abdominal: Positive for: Normal Exam, Soft. Negative for: Tenderness Back: Positive for: Normal Inspection. Negative for: L CVA Tenderness, R CVA Tenderness Extremity: Positive for: Capillary Refill (<2s). Negative for: Tenderness, Pedal Edema, Calf Tenderness, Swelling Lymphatic: Negative for: Adenopathy Neurologic/Psych: Positive for: Alert, locker room attendant II-XII, Oriented. Negative for: Motor/Sensory Deficits, Aphasia - Laboratory Results Result Diagrams: 09/28/17 15:30 09/28/17 15:30 - ECG O2 Sat by Pulse Oximetry: 99 - Progress ED Course And Treament: anemia/thrombocytopenia CBC from today reviewed discussed case with inpatient team whom were instructed via hem/onc on treatment CMP EKG COAGS CXR UA LACTATE TYPE AND CROSSMATCH 2 UNITS PRBCS [id number] U PROCRIT Disposition - Clinical Impression Clinical Impression: Anemia, Thrombocytopenia - Patient ED Disposition Is Patient to be Admitted: Yes - Disposition Disposition Time: 16:43 Condition: STABLE Forms: [facility] (Ugandan) - Pt Status Changed To: Hospital Disposition Of: Observation
[2017-09-28 16:03] LABS: BASO % 0.7 % (0.0-2.0); EOS # 0.1 K/uL (0.0-0.7); LYMPH # 0.8 K/uL (1.0-4.3); MEAN CORPUSCULAR HEMOGLOBIN 29.9 pg (27.0-31.0); MEAN CORPUSCULAR HGB CONC 33.2 g/dL (33.0-37.0); MEAN PLATELET VOLUME 7.9 fl (7.2-11.7); MONO # 0.8 K/uL (0.0-0.8); MONO % 30.1 % (0.0-10.0); NEUT % 36.2 % (50.0-75.0); NRBC % 0.1 % (0.0-0.0); RBC 2.33 Mil/uL (4.40-5.90); RED CELL DISTRIBUTION WIDTH 16.3 % (11.5-14.5)
[2017-09-28 16:08] LABS: URINE BILIRUBIN NEGATIVE (NEGATIVE); URINE BLOOD MODERATE (NEGATIVE); URINE CLARITY SLIGHTY-CLOUDY (Clear); URINE COLOR YELLOW (YELLOW); URINE GLUCOSE (UA) NEG (Normal); URINE HYALINE CAST 0-2 /hpf (0-2); URINE LEUKOCYTE ESTERASE NEG Leu/uL (Negative); URINE PROTEIN 100 mg/dL (NEGATIVE); URINE UROBILINOGEN 0.2-1.0 mg/dL (0.2-1.0)
[2017-09-28 16:18] LABS: INR 1.1 (0.9-1.2); PROTHROMBIN TIME 12.5 Seconds (9.8-13.1)
[2017-09-28 16:29] LABS: ALB/GLOB RATIO 0.8 (1.0-2.1); ALBUMIN 3.4 g/dL (3.5-5.0); CALCIUM 8.7 mg/dL (8.4-10.2)
--- NOTE | 2017-09-28 17:12 | RAD ---
HISTORY: Anemia COMPARISON: 01/04/2016 FINDINGS: LUNGS: No active pulmonary disease. PLEURA: No significant pleural effusion identified, no pneumothorax apparent. CARDIOVASCULAR: No radiographic findings to suggest acute or significant cardiovascular disease. OSSEOUS STRUCTURES: No significant abnormalities. VISUALIZED UPPER ABDOMEN: Normal. OTHER FINDINGS: None. IMPRESSION: No active disease. No significant interval change compared to the prior examination(s).
[2017-09-28 17:51] LABS: WHITE BLOOD COUNT 2.6 K/uL (4.8-10.8)
--- NOTE | 2017-09-28 19:23 | CP.PCM.HP ---
<Yuli Hui - Last Filed: 09/29/17 01:18> History of Present Illness - History of Present Illness History of Present Illness: 77 y/o male with PMHx of diabetes, and recent diagnosis of Myelodysplastic Syndrome presents for evaluation of abnormal lab values. Patient reports a fatigue for the last 3 weeks, however not getting worse. He denies any fever/ chills, headaches, changes in vision, CP/SOB/Palpitations, N/V/D/C, urinary symptoms, melena, hematochezia, hematuria, epistaxis, gingival bleeding. PMD: [facility], Dr. Martinez. PMH: NIDDM2, HLD (does not take any medications) Past Surg hx: L foot Social hx: denies smoking now and in the past, denies alcohol use, denies drug use Family hx: mom w/ bone cancer, other family members w/ DM2 Allergies: NKDA Next of kin: Ottoniel Diaz (son) [phone] Code status: full code ED course: VS:afebrile, HR:88, BP:170/70, RR; 16, oxygen sat: 99 % in room air PE: Petechiae in lower extremities labs: CBC : pancytopenia, CMP: BUN/Cr: 39/2.1, lactic acid wnl treatment: Procrit : 20,000 unit IV once, 2 units of PRBC ordered Present on Admission - Present on Admission Any Indicators Present on Admission: No History of DVT/PE: No History of Uncontrolled Diabetes: No Urinary Catheter: No Decubitus Ulcer Present: No Review of Systems - Review of Systems All systems: reviewed and no additional remarkable complaints except (as per HPI ) Past Patient History - Infectious Disease Hx of Infectious Diseases: None - Past Medical History & Family History Past Medical History?: Yes - Past Social History Smoking Status: Never Smoked - CARDIAC Hx Hypercholesterolemia: Yes - PULMONARY Hx Respiratory Disorders: No - NEUROLOGICAL Hx Neurological Disorder: No - HEENT Hx HEENT Problems: No - RENAL Hx Chronic Kidney Disease: No - ENDOCRINE/METABOLIC Hx Endocrine Disorders: Yes (DM) Hx Diabetes Mellitus Type 2: Yes - HEMATOLOGICAL/ONCOLOGICAL Hx Blood Disorders: No - INTEGUMENTARY Hx Dermatological Problems: No - MUSCULOSKELETAL/RHEUMATOLOGICAL Hx Musculoskeletal Disorders: Yes Hx Back Pain: Yes - GASTROINTESTINAL Hx Gastrointestinal Disorders: No - GENITOURINARY/GYNECOLOGICAL Hx Genitourinary Disorders: No - PSYCHIATRIC Hx Psychophysiologic Disorder: No Hx Substance Use: No - SURGICAL HISTORY Hx Surgeries: Yes Other/Comment: Left foot surgery - ANESTHESIA Hx Anesthesia: Yes Hx Anesthesia Reactions: No Hx Malignant Hyperthermia: No Meds Allergies/Adverse Reactions: Allergies Allergy/AdvReac Type Severity Reaction Status Date / Time No Known Allergies Allergy Verified 01/04/16 15:45 Physical Exam - Constitutional Appears: Non-toxic, No Acute Distress - Eye Exam Eye Exam: Normal appearance - ENT Exam ENT Exam: Mucous Membranes Moist - Respiratory Exam Respiratory Exam: Clear to Auscultation Bilateral, NORMAL BREATHING PATTERN. absent: Decreased Breath Sounds, Rales, Rhonchi, Wheezes, Respiratory Distress - Cardiovascular Exam Cardiovascular Exam: REGULAR RHYTHM, +S1, +S2 - GI/Abdominal Exam GI & Abdominal Exam: Normal Bowel Sounds, Soft. absent: Distended, Guarding, Rebound, Rigid, Tenderness - Extremities Exam Extremities exam: Negative for: calf tenderness, pedal edema Additional comments: Petechiae in both lower extremities - Back Exam Back exam: NORMAL INSPECTION. absent: CVA tenderness (L), CVA tenderness (R) - Neurological Exam Neurological exam: Alert, Oriented x3 - Psychiatric Exam Psychiatric exam: Normal Affect, Normal Mood - Skin Skin Exam: Dry, Intact, Pallor Results - Vital Signs Recent Vital Signs: Last Vital Signs Temp 98.9 F 09/28/17 18:51 Pulse 91 H 09/28/17 18:51 Resp 18 09/28/17 18:51 BP 140/69 09/28/17 18:51 Pulse Ox 98 09/28/17 18:51 - Labs Result Diagrams: 09/28/17 15:30 09/28/17 15:30 Labs: Laboratory Results - last 24 hr 09/28/17 09/28/17 09/28/17 15:30 15:30 15:30 WBC 2.6 L RBC 2.33 L Hgb 7.0 L Hct 21.0 L MCV 90.0 MCH 29.9 MCHC 33.2 RDW 16.3 H Plt Count 22 L* MPV 7.9 Neut % (Auto) 36.2 L Lymph % (Auto) 31.0 Sac % (Auto) 30.1 H Eos % (Auto) 2.0 Baso % (Auto) 0.7 Neut # (Auto) 1.0 L Lymph # (Auto) 0.8 L Sac # (Auto) 0.8 Eos # (Auto) 0.1 Baso # (Auto) 0.0 PT 12.5 INR 1.1 APTT 33.0 Sodium 140 Potassium 4.9 Chloride 106 Carbon Dioxide 23 Anion Gap 16 BUN 39 H Creatinine 2.1 H Est GFR ( Amer) 37 Est GFR (Non-Af Amer) 31 Random Glucose 100 Lactic Acid Calcium 8.7 Total Bilirubin 0.4 AST 19 ALT 28 Alkaline Phosphatase 82 Total Protein 7.7 Albumin 3.4 L Globulin 4.3 H Albumin/Globulin Ratio 0.8 L Urine Color Urine Clarity Urine pH Ur Specific [place] Urine Protein Urine Glucose (UA) Urine Ketones Urine Blood Urine Nitrate Urine Bilirubin Urine Urobilinogen Ur Leukocyte Esterase Urine RBC (Auto) Urine Microscopic WBC Hyaline Casts Blood Type Antibody Screen Crossmatch BBK History Checked 09/28/17 09/28/17 09/28/17 15:30 15:50 15:50 WBC RBC Hgb Hct MCV MCH MCHC RDW Plt Count MPV Neut % (Auto) Lymph % (Auto) Sac % (Auto) Eos % (Auto) Baso % (Auto) Neut # (Auto) Lymph # (Auto) Sac # (Auto) Eos # (Auto) Baso # (Auto) PT INR APTT Sodium Potassium Chloride Carbon Dioxide Anion Gap BUN Creatinine Est GFR ( Amer) Est GFR (Non-Af Amer) Random Glucose Lactic Acid 0.6 L Calcium Total Bilirubin AST ALT Alkaline Phosphatase Total Protein Albumin Globulin Albumin/Globulin Ratio Urine Color Yellow Urine Clarity Slighty-cloudy Urine pH 5.0 Ur Specific [place] 1.015 Urine Protein 100 Urine Glucose (UA) Neg Urine Ketones Negative Urine Blood Moderate Urine Nitrate Negative Urine Bilirubin Negative Urine Urobilinogen 0.2-1.0 Ur Leukocyte Esterase Neg Urine RBC (Auto) 32 H Urine Microscopic WBC 1 Hyaline Casts 0-2 Blood Type O POSITIVE Antibody Screen Negative Crossmatch See Detail BBK History Checked Patient has bt Assessment & Plan - Assessment and Plan (Free Text) Assessment: 77 y/o male with PMHx of diabetes, and recent diagnosis of Myelodysplastic Syndrome admitted with persistent fatigue and pancytopenia. Plan: Pancytopenia -MedSurg unit -most likely 2/2 recent diagnosis of MDS -Bone marrow biopsy done on 09/04/17 reported as no evidence of an acute leukemia or plasma cell Dyscrasia. As per report findings as suggestive of myelodysplasia. -received 1 unit of PRBC in ER, getting second unit in the floor -repeat CBC after blood transfusion -consent for transfusion signed in ER by ER provider -Will need Hematology consult for treatment and f/u as outpatient -No evidence of active bleeding at this time, will continue monitoring -CBC on admission: H/H: 01/13, WBC: 2.6, plt : 22 -will consider platelet transfusion if needed CKD -GFR 31 since prior admission, GFR 49 on 03/27/17 -BUN 39, Cr:2.1 -renal US on 09/05/17 reported as multiple right renal cysts, left renal cyst. -f/u BMP -consider nephrology referral for f/u as outpatient Microscopic Hematuria -noted in UA on admission -also seen in prior admission in 09/04/17 -in prior admission urine was sent for cytology. Reported as 2 papillary groups of atypical urothelial cells on the background of numerous erythrocytes. -renal US on 09/05/17 reported as multiple right renal cysts, left renal cyst. Nonobstructing right nephrolithiasis. -bladder US Diabetes Mellitus type 2 - Not taking any medications - HgbA1C 6.6 tested on 09/04/17 - Accuchecks, monitor - Consistent Carb Diet/heart healthy -last microalb/creat ratio on 09/04/17 was elevated 675 DVT prophylaxis plt count 22 no anticoagulation at this time - Date & Time Date: 09/28/17 Time: 19:30 <Bharati Denise - Last Filed: 09/29/17 13:33> Results - Vital Signs Recent Vital Signs: Last Vital Signs Temp 98.4 F 09/29/17 08:05 Pulse 62 09/29/17 08:05 Resp 18 09/29/17 08:05 BP 157/70 H 09/29/17 08:05 Pulse Ox 94 L 09/29/17 08:05 - Labs Result Diagrams: 09/29/17 05:30 09/29/17 05:30 Labs: Laboratory Results - last 24 hr 09/28/17 09/28/17 09/28/17 15:30 15:30 15:30 WBC 2.6 L RBC 2.33 L Hgb 7.0 L Hct 21.0 L MCV 90.0 MCH 29.9 MCHC 33.2 RDW 16.3 H Plt Count 22 L* MPV 7.9 Neut % (Auto) 36.2 L Lymph % (Auto) 31.0 Sac % (Auto) 30.1 H Eos % (Auto) 2.0 Baso % (Auto) 0.7 Neut # (Auto) 1.0 L Lymph # (Auto) 0.8 L Sac # (Auto) 0.8 Eos # (Auto) 0.1 Baso # (Auto) 0.0 Neutrophils % (Manual) Band Neutrophils % Lymphocytes % (Manual) Monocytes % (Manual) Eosinophils % (Manual) Platelet Estimate Hypochromasia (manual) Poikilocytosis (manual Anisocytosis (manual) Ovalocytes [place] Cells PT 12.5 INR 1.1 APTT 33.0 Sodium 140 Potassium 4.9 Chloride 106 Carbon Dioxide 23 Anion Gap 16 BUN 39 H Creatinine 2.1 H Est GFR ( Amer) 37 Est GFR (Non-Af Amer) 31 POC Glucose (mg/dL) Random Glucose 100 Lactic Acid Uric Acid Calcium 8.7 Iron TIBC % Saturation Ferritin Total Bilirubin 0.4 AST 19 ALT 28 Alkaline Phosphatase 82 Total Protein 7.7 Albumin 3.4 L Globulin 4.3 H Albumin/Globulin Ratio 0.8 L Urine Color Urine Clarity Urine pH Ur Specific [place] Urine Protein Urine Glucose (UA) Urine Ketones Urine Blood Urine Nitrate Urine Bilirubin Urine Urobilinogen Ur Leukocyte Esterase Urine RBC (Auto) Urine Microscopic WBC Hyaline Casts Blood Type Antibody Screen Crossmatch BBK History Checked 09/28/17 09/28/17 09/28/17 15:30 15:50 15:50 WBC RBC Hgb Hct MCV MCH MCHC RDW Plt Count MPV Neut % (Auto) Lymph % (Auto) Sac % (Auto) Eos % (Auto) Baso % (Auto) Neut # (Auto) Lymph # (Auto) Sac # (Auto) Eos # (Auto) Baso # (Auto) Neutrophils % (Manual) Band Neutrophils % Lymphocytes % (Manual) Monocytes % (Manual) Eosinophils % (Manual) Platelet Estimate Hypochromasia (manual) Poikilocytosis (manual Anisocytosis (manual) Ovalocytes [place] Cells PT INR APTT Sodium Potassium Chloride Carbon Dioxide Anion Gap BUN Creatinine Est GFR ( Amer) Est GFR (Non-Af Amer) POC Glucose (mg/dL) Random Glucose Lactic Acid 0.6 L Uric Acid Calcium Iron TIBC % Saturation Ferritin Total Bilirubin AST ALT Alkaline Phosphatase Total Protein Albumin Globulin Albumin/Globulin Ratio Urine Color Yellow Urine Clarity Slighty-cloudy Urine pH 5.0 Ur Specific [place] 1.015 Urine Protein 100 Urine Glucose (UA) Neg Urine Ketones Negative Urine Blood Moderate Urine Nitrate Negative Urine Bilirubin Negative Urine Urobilinogen 0.2-1.0 Ur Leukocyte Esterase Neg Urine RBC (Auto) 32 H Urine Microscopic WBC 1 Hyaline Casts 0-2 Blood Type O POSITIVE Antibody Screen Negative Crossmatch See Detail BBK History Checked Patient has bt 09/29/17 09/29/17 09/29/17 05:30 05:30 05:51 WBC 3.6 L RBC 2.99 L Hgb 9.0 L D Hct 26.0 L MCV 87.0 D MCH 30.0 MCHC 34.4 RDW 16.2 H Plt Count 22 L* MPV 7.9 Neut % (Auto) 31.0 L Lymph % (Auto) 38.8 Sac % (Auto) 28.1 H Eos % (Auto) 1.4 Baso % (Auto) 0.7 Neut # (Auto) 1.1 L Lymph # (Auto) 1.4 Sac # (Auto) 1.0 H Eos # (Auto) 0.0 Baso # (Auto) 0.0 Neutrophils % (Manual) 30 L Band Neutrophils % 1 Lymphocytes % (Manual) 46 Monocytes % (Manual) 21 H Eosinophils % (Manual) 2 Platelet Estimate Decreased L Hypochromasia (manual) Slight Poikilocytosis (manual Slight Anisocytosis (manual) Slight Ovalocytes Slight [place] Cells Slight PT INR APTT Sodium 136 Potassium 4.9 Chloride 102 Carbon Dioxide 23 Anion Gap 16 BUN 39 H Creatinine 2.0 H Est GFR ( Amer) 39 Est GFR (Non-Af Amer) 32 POC Glucose (mg/dL) 93 Random Glucose 101 Lactic Acid Uric Acid Calcium 8.2 L Iron TIBC % Saturation Ferritin Total Bilirubin AST ALT Alkaline Phosphatase Total Protein Albumin Globulin Albumin/Globulin Ratio Urine Color Urine Clarity Urine pH Ur Specific [place] Urine Protein Urine Glucose (UA) Urine Ketones Urine Blood Urine Nitrate Urine Bilirubin Urine Urobilinogen Ur Leukocyte Esterase Urine RBC (Auto) Urine Microscopic WBC Hyaline Casts Blood Type Antibody Screen Crossmatch BBK History Checked 09/29/17 09/29/17 09/29/17 08:00 08:00 10:55 WBC RBC Hgb Hct MCV MCH MCHC RDW Plt Count MPV Neut % (Auto) Lymph % (Auto) Sac % (Auto) Eos % (Auto) Baso % (Auto) Neut # (Auto) Lymph # (Auto) Sac # (Auto) Eos # (Auto) Baso # (Auto) Neutrophils % (Manual) Band Neutrophils % Lymphocytes % (Manual) Monocytes % (Manual) Eosinophils % (Manual) Platelet Estimate Hypochromasia (manual) Poikilocytosis (manual Anisocytosis (manual) Ovalocytes [place] Cells PT INR APTT Sodium Potassium Chloride Carbon Dioxide Anion Gap BUN Creatinine Est GFR ( Amer) Est GFR (Non-Af Amer) POC Glucose (mg/dL) 158 H Random Glucose Lactic Acid Uric Acid Calcium Iron 57 TIBC 203 L % Saturation 28 Ferritin 534.0 H Total Bilirubin AST ALT Alkaline Phosphatase Total Protein Albumin Globulin Albumin/Globulin Ratio Urine Color Urine Clarity Urine pH Ur Specific [place] Urine Protein Urine Glucose (UA) Urine Ketones Urine Blood Urine Nitrate Urine Bilirubin Urine Urobilinogen Ur Leukocyte Esterase Urine RBC (Auto) Urine Microscopic WBC Hyaline Casts Blood Type Antibody Screen Crossmatch BBK History Checked 09/29/17 12:15 WBC RBC Hgb Hct MCV MCH MCHC RDW Plt Count MPV Neut % (Auto) Lymph % (Auto) Sac % (Auto) Eos % (Auto) Baso % (Auto) Neut # (Auto) Lymph # (Auto) Sac # (Auto) Eos # (Auto) Baso # (Auto) Neutrophils % (Manual) Band Neutrophils % Lymphocytes % (Manual) Monocytes % (Manual) Eosinophils % (Manual) Platelet Estimate Hypochromasia (manual) Poikilocytosis (manual Anisocytosis (manual) Ovalocytes [place] Cells PT INR APTT Sodium Potassium Chloride Carbon Dioxide Anion Gap BUN Creatinine Est GFR ( Amer) Est GFR (Non-Af Amer) POC Glucose (mg/dL) Random Glucose Lactic Acid Uric Acid 7.7 Calcium Iron TIBC % Saturation Ferritin Total Bilirubin AST ALT Alkaline Phosphatase Total Protein Albumin Globulin Albumin/Globulin Ratio Urine Color Urine Clarity Urine pH Ur Specific [place] Urine Protein Urine Glucose (UA) Urine Ketones Urine Blood Urine Nitrate Urine Bilirubin Urine Urobilinogen Ur Leukocyte Esterase Urine RBC (Auto) Urine Microscopic WBC Hyaline Casts Blood Type Antibody Screen Crossmatch BBK History Checked Attending/Attestation - Attestation I have personally seen and examined this patient.: Yes I have fully participated in the care of the patient.: Yes I have reviewed all pertinent clinical information: Yes Notes (Text): 09/29/17 13:32 ATTENDING NOTE - ATTESTATION NOTE - PATIENT SEEN AND EXAMINED. CASE DISCUSSED WITH RESIDENTS. AGREE WITH FINDINGS AND PLAN.
[2017-09-29] MEDS ORDERED: Dextrose 50% SYRINGE Inj (50 ml) IV PRN (02:51)
[2017-09-29] MEDS ORDERED: Glucagon Recombinant 1 mg Inj IM PRN (02:51)
[2017-09-29 07:37] LABS: CALCIUM 8.2 mg/dL (8.4-10.2)
[2017-09-29 07:46] LABS: BASO % 0.7 % (0.0-2.0); EOS % 1.4 % (0.0-4.0); LYMPH # 1.4 K/uL (1.0-4.3); LYMPH % 38.8 % (20.0-40.0); MEAN CORPUSCULAR HGB CONC 34.4 g/dL (33.0-37.0); MEAN PLATELET VOLUME 7.9 fl (7.2-11.7); MONO % 28.1 % (0.0-10.0); NEUT # 1.1 K/uL (1.8-7.0); NRBC % 0.1 % (0.0-0.0); RBC 2.99 Mil/uL (4.40-5.90); RED CELL DISTRIBUTION WIDTH 16.2 % (11.5-14.5); WHITE BLOOD COUNT 3.6 K/uL (4.8-10.8)
[2017-09-29 08:01] LABS: PLATELET COUNT 22 K/uL (130-400)
[2017-09-29 08:42] LABS: IRON 57 ug/dL (49-181)
[2017-09-29 08:50] LABS: TOTAL IRON BINDING CAPACITY 203 ug/dL (250-450)
[2017-09-29 08:52] LABS: BANDS 1 % (0-2); EOSINOPHIL 2 % (0-7); LYMPHOCYTE 46 % (20-50); MONOCYTE 21 % (0-10); NEUTROPHIL 30 % (42-75); TOTAL CELLS COUNTED 100
[2017-09-29 08:52] LABS: % IRON SATURATION 28 % (20-55)
[2017-09-29 08:53] LABS: PLATELET ESTIMATE DECREASED (NORMAL)
[2017-09-29 08:56] LABS: ANISOCYTOSIS SLIGHT; HYPOCHROMIC SLIGHT; POIKILOCYTOSIS SLIGHT
[2017-09-29 08:57] LABS: BURR CELLS SLIGHT; OVALOCYTES SLIGHT
--- NOTE | 2017-09-29 13:48 | RAD ---
PROCEDURE: Radiographs of the right great toe. Clinical history: Right toe pain. No history of trauma provided. TECHNIQUE:: AP radiograph of the right foot, with oblique and lateral view of the right great toe. COMPARISON: None. FINDINGS: BONES: Findings related hallux valgus repair. Severe degenerative changes 1st metatarsal phalangeal joint. JOINTS: Degenerative/postoperative changes involving the hallux. SOFT TISSUES: Normal. OTHER FINDINGS: None. IMPRESSION: No acute findings related to/accounting for the clinical presentation.
[2017-09-29 16:29] VITALS: BP 170/77; PULSE 79; RESP 20; TEMP 98.9; O2SAT 99
--- NOTE | 2017-09-29 19:10 | CP.PCM.DIS ---
<Sabas Winchester - Last Filed: 09/29/17 19:04> Provider - Provider Date of Admission: 09/28/17 16:50 Attending physician: Karina Luevano MD Time Spent in preparation of Discharge (in minutes): 20 Diagnosis - Discharge Diagnosis (1) Anemia Status: Acute Hospital Course - Lab Results Lab Results: Most Recent Lab Values WBC 3.6 K/uL (4.8-10.8) L 09/29/17 05:30 RBC 2.99 Mil/uL (4.40-5.90) L 09/29/17 05:30 Hgb 9.0 g/dL (12.0-18.0) L D 09/29/17 05:30 Hct 26.0 % (35.0-51.0) L 09/29/17 05:30 MCV 87.0 fl (80.0-94.0) D 09/29/17 05:30 MCH 30.0 pg (27.0-31.0) 09/29/17 05:30 MCHC 34.4 g/dL (33.0-37.0) 09/29/17 05:30 RDW 16.2 % (11.5-14.5) H 09/29/17 05:30 Plt Count 22 K/uL (130-400) L* 09/29/17 05:30 MPV 7.9 fl (7.2-11.7) 09/29/17 05:30 Neut % (Auto) 31.0 % (50.0-75.0) L 09/29/17 05:30 Lymph % (Auto) 38.8 % (20.0-40.0) 09/29/17 05:30 [place] % (Auto) 28.1 % (0.0-10.0) H 09/29/17 05:30 Eos % (Auto) 1.4 % (0.0-4.0) 09/29/17 05:30 Baso % (Auto) 0.7 % (0.0-2.0) 09/29/17 05:30 Neut # (Auto) 1.1 K/uL (1.8-7.0) L 09/29/17 05:30 Lymph # (Auto) 1.4 K/uL (1.0-4.3) 09/29/17 05:30 [place] # (Auto) 1.0 K/uL (0.0-0.8) H 09/29/17 05:30 Eos # (Auto) 0.0 K/uL (0.0-0.7) 09/29/17 05:30 Baso # (Auto) 0.0 K/uL (0.0-0.2) 09/29/17 05:30 Neutrophils % (Manual) 30 % (42-75) L 09/29/17 05:30 Band Neutrophils % 1 % (0-2) 09/29/17 05:30 Lymphocytes % (Manual) 46 % (20-50) 09/29/17 05:30 Monocytes % (Manual) 21 % (0-10) H 09/29/17 05:30 Eosinophils % (Manual) 2 % (0-7) 09/29/17 05:30 Platelet Estimate Decreased (NORMAL) L 09/29/17 05:30 Hypochromasia (manual) Slight 09/29/17 05:30 Poikilocytosis (manual Slight 09/29/17 05:30 Anisocytosis (manual) Slight 09/29/17 05:30 Ovalocytes Slight 09/29/17 05:30 [place] Cells Slight 09/29/17 05:30 PT 12.5 Seconds (9.8-13.1) 09/28/17 15:30 INR 1.1 (0.9-1.2) 09/28/17 15:30 APTT 33.0 Seconds (25.6-37.1) 09/28/17 15:30 Sodium 136 mmol/l (132-148) 09/29/17 05:30 Potassium 4.9 MMOL/L (3.6-5.0) 09/29/17 05:30 Chloride 102 mmol/L (98-107) 09/29/17 05:30 Carbon Dioxide 23 mmol/L (22-30) 09/29/17 05:30 Anion Gap 16 (10-20) 09/29/17 05:30 BUN 39 mg/dl (9-20) H 09/29/17 05:30 Creatinine 2.0 mg/dl (0.8-1.5) H 09/29/17 05:30 Est GFR ( Amer) 39 09/29/17 05:30 Est GFR (Non-Af Amer) 32 09/29/17 05:30 POC Glucose (mg/dL) 90 mg/dL (65-110) 09/29/17 15:44 Random Glucose 101 mg/dL (75-110) 09/29/17 05:30 Lactic Acid 0.6 MMOL/L (0.7-2.1) L 09/28/17 15:50 Uric Acid 7.7 mg/Dl (3.5-8.5) 09/29/17 12:15 Calcium 8.2 mg/dL (8.4-10.2) L 09/29/17 05:30 Iron 57 ug/dL (49-181) 09/29/17 08:00 TIBC 203 ug/dL (250-450) L 09/29/17 08:00 % Saturation 28 % (20-55) 09/29/17 08:00 Ferritin 534.0 ng/Ml (17.9-464) H 09/29/17 08:00 Total Bilirubin 0.4 mg/dl (0.2-1.3) 09/28/17 15:30 AST 19 U/L (17-59) 09/28/17 15:30 ALT 28 U/L (21-72) 09/28/17 15:30 Alkaline Phosphatase 82 U/L (38-126) 09/28/17 15:30 Total Protein 7.7 G/DL (6.3-8.2) 09/28/17 15:30 Albumin 3.4 g/dL (3.5-5.0) L 09/28/17 15:30 Globulin 4.3 gm/dL (2.2-3.9) H 09/28/17 15:30 Albumin/Globulin Ratio 0.8 (1.0-2.1) L 09/28/17 15:30 Urine Color Yellow (YELLOW) 09/28/17 15:50 Urine Clarity Slighty-cloudy (Clear) 09/28/17 15:50 Urine pH 5.0 (5.0-8.0) 09/28/17 15:50 Ur Specific [place] 1.015 (1.003-1.030) 09/28/17 15:50 Urine Protein 100 mg/dL (NEGATIVE) 09/28/17 15:50 Urine Glucose (UA) Neg mg/dL (Normal) 09/28/17 15:50 Urine Ketones Negative mg/dL (NEGATIVE) 09/28/17 15:50 Urine Blood Moderate (NEGATIVE) 09/28/17 15:50 Urine Nitrate Negative (NEGATIVE) 09/28/17 15:50 Urine Bilirubin Negative (NEGATIVE) 09/28/17 15:50 Urine Urobilinogen 0.2-1.0 mg/dL (0.2-1.0) 09/28/17 15:50 Ur Leukocyte Esterase Neg Patric/uL (Negative) 09/28/17 15:50 Urine RBC (Auto) 32 /hpf (0-3) H 09/28/17 15:50 Urine Microscopic WBC 1 /hpf (0-5) 09/28/17 15:50 Hyaline Casts 0-2 /hpf (0-2) 09/28/17 15:50 Blood Type O POSITIVE 09/28/17 15:30 Antibody Screen Negative 09/28/17 15:30 Crossmatch See Detail 09/28/17 15:30 BBK History Checked Patient has bt 09/28/17 15:30 - Hospital Course Hospital Course: 77 y/o male with PMHx of diabetes, and recent diagnosis of Myelodysplastic Syndrome presents with pancytopenia. s/p 2 units PRBC transfused. Heme/onc consulted: Dr. Pace: stable recommend discharge to f/u op. Further management of MDS; Keep platelets above 20. pt to f/u in 2 weeks for repeat CBC. Discharge Exam - Head Exam Head Exam: ATRAUMATIC, NORMAL INSPECTION, NORMOCEPHALIC - Eye Exam Eye Exam: EOMI - Neck Exam Neck exam: Full Rom - Respiratory Exam Respiratory Exam: Clear to PA & Lateral, NORMAL BREATHING PATTERN, UNREMARKABLE. absent: Wheezes - Cardiovascular Exam Cardiovascular Exam: REGULAR RHYTHM, +S1, +S2 - GI/Abdominal Exam GI & Abdominal Exam: Normal Bowel Sounds, Soft. absent: Tenderness - Extremities Exam Additional comments: R foot: first metatarsal tenderness - Neurological Exam Neurological exam: Alert, CN II-XII Intact, Normal Gait, Oriented x3 - Psychiatric Exam Psychiatric exam: Normal Affect, Normal Mood Discharge Plan - Discharge Medications Prescriptions: Acetaminophen [Tylenol 325mg tab] 975 mg PO Q8 #84 tab Ferrous Sulfate [Feosol] 325 mg PO TID #21 tab - Follow Up Plan Condition: STABLE Disposition: HOME/ ROUTINE Instructions: Myelodysplastic Syndromes (MDS) (DC), Normocytic Normochromic Anemia (DC) Additional Instructions: Please follow up with Dr. Martinez on 10/19/2017 at 03:20. Please follow up with blood work (CBC) Referrals: [facility] [Outside] Chandrakant Martinez MD [Resident] - <Bharati Denise - Last Filed: 09/30/17 09:53> Provider - Provider Date of Admission: 09/28/17 16:50 Attending physician: Karina Luevano MD Hospital Course - Lab Results Lab Results: Most Recent Lab Values WBC 3.6 K/uL (4.8-10.8) L 09/29/17 05:30 RBC 2.99 Mil/uL (4.40-5.90) L 09/29/17 05:30 Hgb 9.0 g/dL (12.0-18.0) L D 09/29/17 05:30 Hct 26.0 % (35.0-51.0) L 09/29/17 05:30 MCV 87.0 fl (80.0-94.0) D 09/29/17 05:30 MCH 30.0 pg (27.0-31.0) 09/29/17 05:30 MCHC 34.4 g/dL (33.0-37.0) 09/29/17 05:30 RDW 16.2 % (11.5-14.5) H 09/29/17 05:30 Plt Count 22 K/uL (130-400) L* 09/29/17 05:30 MPV 7.9 fl (7.2-11.7) 09/29/17 05:30 Neut % (Auto) 31.0 % (50.0-75.0) L 09/29/17 05:30 Lymph % (Auto) 38.8 % (20.0-40.0) 09/29/17 05:30 [place] % (Auto) 28.1 % (0.0-10.0) H 09/29/17 05:30 Eos % (Auto) 1.4 % (0.0-4.0) 09/29/17 05:30 Baso % (Auto) 0.7 % (0.0-2.0) 09/29/17 05:30 Neut # (Auto) 1.1 K/uL (1.8-7.0) L 09/29/17 05:30 Lymph # (Auto) 1.4 K/uL (1.0-4.3) 09/29/17 05:30 [place] # (Auto) 1.0 K/uL (0.0-0.8) H 09/29/17 05:30 Eos # (Auto) 0.0 K/uL (0.0-0.7) 09/29/17 05:30 Baso # (Auto) 0.0 K/uL (0.0-0.2) 09/29/17 05:30 Neutrophils % (Manual) 30 % (42-75) L 09/29/17 05:30 Band Neutrophils % 1 % (0-2) 09/29/17 05:30 Lymphocytes % (Manual) 46 % (20-50) 09/29/17 05:30 Monocytes % (Manual) 21 % (0-10) H 09/29/17 05:30 Eosinophils % (Manual) 2 % (0-7) 09/29/17 05:30 Platelet Estimate Decreased (NORMAL) L 09/29/17 05:30 Hypochromasia (manual) Slight 09/29/17 05:30 Poikilocytosis (manual Slight 09/29/17 05:30 Anisocytosis (manual) Slight 09/29/17 05:30 Ovalocytes Slight 09/29/17 05:30 [place] Cells Slight 09/29/17 05:30 PT 12.5 Seconds (9.8-13.1) 09/28/17 15:30 INR 1.1 (0.9-1.2) 09/28/17 15:30 APTT 33.0 Seconds (25.6-37.1) 09/28/17 15:30 Sodium 136 mmol/l (132-148) 09/29/17 05:30 Potassium 4.9 MMOL/L (3.6-5.0) 09/29/17 05:30 Chloride 102 mmol/L (98-107) 09/29/17 05:30 Carbon Dioxide 23 mmol/L (22-30) 09/29/17 05:30 Anion Gap 16 (10-20) 09/29/17 05:30 BUN 39 mg/dl (9-20) H 09/29/17 05:30 Creatinine 2.0 mg/dl (0.8-1.5) H 09/29/17 05:30 Est GFR ( Amer) 39 09/29/17 05:30 Est GFR (Non-Af Amer) 32 09/29/17 05:30 POC Glucose (mg/dL) 90 mg/dL (65-110) 09/29/17 15:44 Random Glucose 101 mg/dL (75-110) 09/29/17 05:30 Lactic Acid 0.6 MMOL/L (0.7-2.1) L 09/28/17 15:50 Uric Acid 7.7 mg/Dl (3.5-8.5) 09/29/17 12:15 Calcium 8.2 mg/dL (8.4-10.2) L 09/29/17 05:30 Iron 57 ug/dL (49-181) 09/29/17 08:00 TIBC 203 ug/dL (250-450) L 09/29/17 08:00 % Saturation 28 % (20-55) 09/29/17 08:00 Ferritin 534.0 ng/Ml (17.9-464) H 09/29/17 08:00 Total Bilirubin 0.4 mg/dl (0.2-1.3) 09/28/17 15:30 AST 19 U/L (17-59) 09/28/17 15:30 ALT 28 U/L (21-72) 09/28/17 15:30 Alkaline Phosphatase 82 U/L (38-126) 09/28/17 15:30 Total Protein 7.7 G/DL (6.3-8.2) 09/28/17 15:30 Albumin 3.4 g/dL (3.5-5.0) L 09/28/17 15:30 Globulin 4.3 gm/dL (2.2-3.9) H 09/28/17 15:30 Albumin/Globulin Ratio 0.8 (1.0-2.1) L 09/28/17 15:30 Urine Color Yellow (YELLOW) 09/28/17 15:50 Urine Clarity Slighty-cloudy (Clear) 09/28/17 15:50 Urine pH 5.0 (5.0-8.0) 09/28/17 15:50 Ur Specific [place] 1.015 (1.003-1.030) 09/28/17 15:50 Urine Protein 100 mg/dL (NEGATIVE) 09/28/17 15:50 Urine Glucose (UA) Neg mg/dL (Normal) 09/28/17 15:50 Urine Ketones Negative mg/dL (NEGATIVE) 09/28/17 15:50 Urine Blood Moderate (NEGATIVE) 09/28/17 15:50 Urine Nitrate Negative (NEGATIVE) 09/28/17 15:50 Urine Bilirubin Negative (NEGATIVE) 09/28/17 15:50 Urine Urobilinogen 0.2-1.0 mg/dL (0.2-1.0) 09/28/17 15:50 Ur Leukocyte Esterase Neg [place]/uL (Negative) 09/28/17 15:50 Urine RBC (Auto) 32 /hpf (0-3) H 09/28/17 15:50 Urine Microscopic WBC 1 /hpf (0-5) 09/28/17 15:50 Hyaline Casts 0-2 /hpf (0-2) 09/28/17 15:50 Blood Type O POSITIVE 09/28/17 15:30 Antibody Screen Negative 09/28/17 15:30 Crossmatch See Detail 09/28/17 15:30 BBK History Checked Patient has bt 09/28/17 15:30 Attending/Attestation - Attestation I have personally seen and examined this patient.: Yes I have fully participated in the care of the patient.: Yes I have reviewed all pertinent clinical information, including history, physical exam and plan: Yes Notes (Text): 09/30/17 09:52 PATIENT SEEN AND EXAMINED. PATIENT DENIES COMPLAINTS. CASE DISCUSSED WITH RESIDENT. AGREE WITH FINDINGS AND PLAN
== END 2017-09-29 19:03 | disposition home or self-care (01) ==
LOC: H.ER 14:35 → H.ERHOLD 16:50 → H.MEDSURG1 22:25
PROVIDERS: ADMIT Family Medicine Geriatric Medicine; ATTEND Family Medicine Geriatric Medicine
DX: D61.818 Other pancytopenia (principal); E11.9 Type 2 diabetes mellitus without complications; E78.5 Hyperlipidemia, unspecified; E78.00 Pure hypercholesterolemia, unspecified; D46.9 Myelodysplastic syndrome, unspecified; E11.22 Type 2 diabetes mellitus with diabetic chronic kidney disease; N18.9 Chronic kidney disease, unspecified; R31.29 Other microscopic hematuria
CPT/HCPCS: 36415; 36430; 71045; 73660; 80048; 80053; 81003; 82728; 82948; 83540; 83550; 83605; 84155; 84165; 84550; 85025; 85610; 85730; 86850; 86900; 86920; 99283; G0378; P9051; Q4081

== ENCOUNTER 2017-10-05 18:24 | Emergency (ER) | payer MEDICAID ==
[2017-10-05 18:54] VITALS: TEMP 98.5
--- NOTE | 2017-10-05 19:25 | ED PDOC ---
HPI: General Adult Time Seen by Provider: 10/05/17 19:06 Chief Complaint (Nursing): Abnormal Skin Integrity History Per: Patient History/Exam Limitations: no limitations Onset/Duration Of Symptoms: Hrs Current Symptoms Are (Timing): Better Additional Complaint(s): Hx of DM, CKD p/w bleeding gums x 1 day, patient was worried because he didn't know where the bleeding was coming from. Denies epistaxis, hematuria, blood in stool, dark stools, lightheadedness, dizziness, chest pain, sob, or any other symptoms. denies blood thinners. denies trauma. states bleeding is mild. Past Medical History Reviewed: Historical Data, Nursing Documentation, Vital Signs Vital Signs: Last Vital Signs Temp 98.5 F 10/05/17 18:53 Pulse 90 10/05/17 18:53 Resp 16 10/05/17 18:53 BP 193/80 H 10/05/17 18:53 Pulse Ox 99 10/05/17 18:53 - Medical History PMH: Anemia, Diabetes, HTN, Hypercholesterolemia Denies: HIV, Chronic Kidney Disease - Family History Family History: States: Unknown Family Hx - Home Medications Home Medications: Ambulatory Orders Medication Instructions Recorded Acetaminophen [Tylenol 325mg tab] 975 mg PO Q8 #84 tab 09/29/17 Ferrous Sulfate [Feosol] 325 mg PO TID #21 tab 09/29/17 - Allergies Allergies/Adverse Reactions: Allergies Allergy/AdvReac Type Severity Reaction Status Date / Time No Known Allergies Allergy Verified 01/04/16 15:45 Review of Systems ROS Statement: Except As Marked, All Systems Reviewed And Found Negative ENT: Positive for: Other (Bleeding gums) Physical Exam - Reviewed Nursing Documentation Reviewed: Yes - Physical Exam Appears: Positive for: Well, Non-toxic, No Acute Distress Head Exam: Positive for: ATRAUMATIC, NORMAL INSPECTION, NORMOCEPHALIC Skin: Positive for: Normal Color, Warm, DRY Eye Exam: Positive for: EOMI, Normal appearance, PERRL ENT: Positive for: Other (Bottom gum line with scant bleeding, teeth in place- normal appearance) Neck: Positive for: Normal, Painless ROM Cardiovascular/Chest: Positive for: Regular Rate, Rhythm Respiratory: Positive for: CNT, Normal Breath Sounds Gastrointestinal/Abdominal: Positive for: Normal Exam, Soft Back: Positive for: Normal Inspection Extremity: Positive for: Normal ROM Neurologic/Psych: Positive for: Alert, Oriented - ECG O2 Sat by Pulse Oximetry: 99 Pulse Ox Interpretation: Normal Medical Decision Making Medical Decision Making: A/P: Hx of DM, CKD, anemia p/w gum bleeding -patient well appearing, bleeding has nearly completely stopped -no need for labs, patient is very well appearing -advised to followup with dentistry tomorrow Disposition - Clinical Impression Clinical Impression: Bleeding gums - Patient ED Disposition Is Patient to be Admitted: No - Disposition Referrals: FAMILY PROVIDER,NO [Primary Care Provider] - [facility] [Outside] Disposition: Routine/Home Disposition Time: 19:25 Condition: IMPROVED Instructions: Bleeding Gums Print Language: INDONESIAN
[2017-10-05 20:54] VITALS: BP 138/85; PULSE 85; RESP 18; O2SAT 100
== END 2017-10-05 19:50 | disposition home or self-care (01) ==
LOC: H.ER 18:24 → SUPCPDRO 18:24 → H.ER 19:50
DX: K06.8 Other specified disorders of gingiva and edentulous alveolar ridge (principal); E11.22 Type 2 diabetes mellitus with diabetic chronic kidney disease; E78.00 Pure hypercholesterolemia, unspecified; I12.9 Hypertensive chronic kidney disease with stage 1 through stage 4 chronic kidney disease, or unspecified chronic kidney disease

== ENCOUNTER 2017-10-09 18:48 | Inpatient (IN) | payer MEDICAID ==
[2017-10-09 20:37] LABS: PARTIAL THROMBOPLASTIN TIME 32.8 Seconds (25.6-37.1); PROTHROMBIN TIME 11.6 Seconds (9.8-13.1)
[2017-10-09 20:40] LABS: ALB/GLOB RATIO 0.8 (1.0-2.1); ALBUMIN 3.9 g/dL (3.5-5.0)
[2017-10-09 20:41] LABS: BASO % 0.5 % (0.0-2.0); EOS # 0.1 K/uL (0.0-0.7); EOS % 1.9 % (0.0-4.0); HEMOGLOBIN 9.5 g/dL (12.0-18.0); LYMPH # 1.4 K/uL (1.0-4.3); MEAN CELL VOLUME 88.8 fl (80.0-94.0); MEAN CORPUSCULAR HEMOGLOBIN 29.9 pg (27.0-31.0); MEAN CORPUSCULAR HGB CONC 33.7 g/dL (33.0-37.0); MEAN PLATELET VOLUME 8.3 fl (7.2-11.7); MONO # 0.9 K/uL (0.0-0.8); MONO % 24.8 % (0.0-10.0); NEUT # 1.2 K/uL (1.8-7.0); NEUT % 33.8 % (50.0-75.0); NRBC % 0.2 % (0.0-0.0); RBC 3.16 Mil/uL (4.40-5.90); RED CELL DISTRIBUTION WIDTH 16.4 % (11.5-14.5); WHITE BLOOD COUNT 3.5 K/uL (4.8-10.8)
[2017-10-09 20:49] LABS: PLATELET COUNT 17 K/uL (130-400)
--- NOTE | 2017-10-09 21:28 | ED PDOC ---
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 Patient states while being evaluated by Dr. Pace today, patient was noted to have an ecchymotic lesion to his abdominal wall and one to his right great toe. 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 He was advised by Dr. Pace to have a CBC done and presents here for evaluation. Patient also reports mild dizziness but denies any fever, chills, shortness of breath, vomiting or diarrhea. he also reports generalized bodyaches to his lower extremities but states that is ongoing for years. He offers no other medical complaints. Past Medical History Reviewed: Historical Data, Nursing Documentation, Vital Signs Vital Signs: Last Vital Signs Temp 98.7 F 10/09/17 19:00 Pulse 98 H 10/09/17 19:00 Resp 20 10/09/17 19:00 BP 170/83 H 10/09/17 19:00 Pulse Ox 98 10/09/17 19:00 - Medical History PMH: Anemia, Diabetes, HTN, Hypercholesterolemia Denies: HIV, Chronic Kidney Disease - Surgical History Surgical History: No Surg Hx - Family History Family History: States: Unknown Family Hx - Home Medications Home Medications: Ambulatory Orders Medication Instructions Recorded Acetaminophen [Tylenol 325mg tab] 975 mg PO Q8 #84 tab 09/29/17 Ferrous Sulfate [Feosol] 325 mg PO TID #21 tab 09/29/17 - Allergies Allergies/Adverse Reactions: Allergies Allergy/AdvReac Type Severity Reaction Status Date / Time No Known Allergies Allergy Verified 10/09/17 18:50 Review of Systems ROS Statement: Except As Marked, All Systems Reviewed And Found Negative Constitutional: Negative for: Fever, Chills Respiratory: Negative for: Shortness of Breath Gastrointestinal: Positive for: Other (ecchymotic lesion to abdominal wall). Negative for: Vomiting, Diarrhea Musculoskeletal: Positive for: Other (ecchymotic lesion right great toe) Neurological: Positive for: Dizziness Physical Exam - Reviewed Nursing Documentation Reviewed: Yes Vital Signs Reviewed: Yes - Physical Exam Appears: Positive for: Non-toxic, No Acute Distress Head Exam: Positive for: ATRAUMATIC, NORMAL INSPECTION, NORMOCEPHALIC Skin: Positive for: Normal Color Eye Exam: Positive for: EOMI, PERRL ENT: Positive for: Other (scattered petechiae to nose and tongue) Neck: Positive for: Supple Cardiovascular/Chest: Positive for: Regular Rate, Rhythm Respiratory: Positive for: Normal Breath Sounds. Negative for: Respiratory Distress Gastrointestinal/Abdominal: Positive for: Soft, Other (ecchymotic lesion to right mid adbominal wall). Negative for: Tenderness Back: Positive for: Normal Inspection Extremity: Positive for: Normal ROM, Other (petechiae to right great toe) Neurologic/Psych: Positive for: Alert, Oriented. Negative for: Motor/Sensory Deficits - Laboratory Results Result Diagrams: 10/10/17 05:40 10/10/17 05:40 - ECG O2 Sat by Pulse Oximetry: 98 (RA) Pulse Ox Interpretation: Normal Medical Decision Making Medical Decision Making: Impression: Petecheial and purpuric lesions in setting of known myelodysplastic syndrome, thrombocytopenia Plan: -- Labs -- EKG Time: 2115 Labs reviewed and are significant for pancytopenia with significant thrombocyopenia. Case discussed with Dr. Annamarie Pace who agrees with plan for platelet transfusion. Order for 1 bag of platelets transfusion placed. Case referred to resident Dr. Somers for admission. Scribe Attestation: Documented by Miladis Arnett acting as a scribe for Leroy Dang MD. Provider Attestation: All medical record entries made by the Scribe were at my direction and personally dictated by me. I have reviewed the chart and agree that the record accurately reflects my personal performance of the history, physical exam, medical decision making, and the department course for this patient. I have also personally directed, reviewed, and agree with the discharge instructions and disposition. Disposition - Clinical Impression Clinical Impression: Thrombocytopenia, Myelodysplasia (myelodysplastic syndrome) - Patient ED Disposition Is Patient to be Admitted: Yes - Disposition Disposition Time: 21:16 Condition: STABLE
[2017-10-09 21:47] LABS: EOSINOPHIL 1 % (0-7); LYMPHOCYTE 42 % (20-50); MONOCYTE 18 % (0-10); NEUTROPHIL 39 % (42-75); TOTAL CELLS COUNTED 100
[2017-10-09 21:48] LABS: PLATELET ESTIMATE DECREASED (NORMAL)
[2017-10-09 21:50] LABS: ANISOCYTOSIS SLIGHT; OVALOCYTES SLIGHT
[2017-10-09 21:51] LABS: ROULEAUX FORMATION SLIGHT
--- NOTE | 2017-10-10 01:49 | CP.PCM.HP ---
History of Present Illness - History of Present Illness History of Present Illness: 77 yo ,m,PMhx/o DM, recent diagnosis of Myelodysplastic Syndrome, Pancytopenia , CKD , recent discharged 2 weeks ago after transfusion for pancytopenia presents to ED c/o mild dizziness noticed today while walking to the bank , associated with mild b/l leg heaviness. He denies headache, fall, confusion, fever, chest pain, SOB, n,v,d, dysuria, hematuria, epistaxis. Patient states while being evaluated by Dr. Pace today, patient was noted to have an ecchymotic lesion to his abdominal wall and one to his right great toe. 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 He was advised by Dr. Pace to have a CBC done and presents to ER for evaluation. PMD: [facility] [place], Dr. Martinez. Hemo-Onc: Dr Pace PMH: NIDDM2, HLD (does not take any medications) Past Surg hx: L foot bunion Social hx: denies smoking now and in the past, denies alcohol use, denies drug use Family hx: mom w/ bone cancer, other family members w/ DM2 Allergies: NKDA Next of kin: Ottoniel Diaz (son) [phone] Code status: full code ED Course: VS: BP: 170/83. Afebrile . PE: petechial rash b/l leg below the knee. SS 3/6 all areas, radiated to neck Labs: Pancytopenia CBC: 3.5>9.5<17 BUN/CR 55/2.0 Glucose 118 Imaging: EKG: NSR HR 92 Meds: Platelet transfusion as recommendation by Dr Pace. Present on Admission - Present on Admission Any Indicators Present on Admission: No History of DVT/PE: No History of Uncontrolled Diabetes: No Urinary Catheter: No Decubitus Ulcer Present: No Review of Systems - Review of Systems All systems: reviewed and no additional remarkable complaints except - Cardiovascular Cardiovascular: absent: Chest Pain - Respiratory Respiratory: absent: Cough - Neurological Neurological: Dizziness - Hematologic/Lymphatic Hematologic: As Per HPI, Easy Bruising Past Patient History - Infectious Disease Hx of Infectious Diseases: None - Past Medical History & Family History Past Medical History?: Yes - Past Social History Smoking Status: Never Smoked - CARDIAC Hx Cardiac Disorders: Yes - PULMONARY Hx Respiratory Disorders: No - NEUROLOGICAL Hx Neurological Disorder: No - HEENT Hx HEENT Problems: No - RENAL Hx Chronic Kidney Disease: No - ENDOCRINE/METABOLIC Hx Endocrine Disorders: Yes - HEMATOLOGICAL/ONCOLOGICAL Hx Anemia: Yes Hx Human Immunodeficiency Virus (HIV): No - INTEGUMENTARY Hx Dermatological Problems: No - MUSCULOSKELETAL/RHEUMATOLOGICAL Hx Musculoskeletal Disorders: Yes Hx Back Pain: Yes Hx Falls: No - GASTROINTESTINAL Hx Gastrointestinal Disorders: No - GENITOURINARY/GYNECOLOGICAL Hx Genitourinary Disorders: No - PSYCHIATRIC Hx Psychophysiologic Disorder: No Hx Substance Use: No - SURGICAL HISTORY Hx Surgeries: Yes - ANESTHESIA Hx Anesthesia: Yes Hx Anesthesia Reactions: No Hx Malignant Hyperthermia: No Has any member of the family had a problem w/ anesthesia?: No Meds Allergies/Adverse Reactions: Allergies Allergy/AdvReac Type Severity Reaction Status Date / Time No Known Allergies Allergy Verified 10/09/17 18:50 Physical Exam - Constitutional Appears: Non-toxic, No Acute Distress - Head Exam Head Exam: ATRAUMATIC, NORMOCEPHALIC Additional comments: scattered small papules over face erythemato papulous - Eye Exam Eye Exam: Normal appearance - ENT Exam ENT Exam: Mucous Membranes Moist - Neck Exam Neck exam: Positive for: Normal Inspection - Respiratory Exam Respiratory Exam: Clear to Auscultation Bilateral. absent: Rales, Rhonchi, Wheezes - Cardiovascular Exam Cardiovascular Exam: REGULAR RHYTHM, Systolic Murmur (pansystolic 3/6 all areas , radiated to neck ) - GI/Abdominal Exam GI & Abdominal Exam: Normal Bowel Sounds, Soft. absent: Guarding, Rebound, Tenderness Additional comments: small echymotic lesion over abdominal wall right side aprox 2cm - Extremities Exam Extremities exam: Positive for: normal capillary refill. Negative for: calf tenderness, pedal edema, tenderness Additional comments: petechial rash b/l legs below the knees. echymotic lesion over right toe. - Back Exam Back exam: NORMAL INSPECTION - Neurological Exam Neurological exam: Alert, CN II-XII Intact, Oriented x3, Reflexes Normal - Psychiatric Exam Psychiatric exam: Normal Affect, Normal Mood - Skin Skin Exam: Petechiae (b/l legs bellow the knees) Results - Vital Signs Recent Vital Signs: Last Vital Signs Temp 98.3 F 10/10/17 01:00 Pulse 97 H 10/10/17 01:00 Resp 18 10/10/17 01:00 BP 124/56 L 10/10/17 01:00 Pulse Ox 97 10/10/17 01:00 - Labs Result Diagrams: 10/09/17 20:05 10/09/17 20:05 Labs: Laboratory Results - last 24 hr 10/09/17 10/09/17 10/09/17 20:00 20:05 20:05 WBC 3.5 L RBC 3.16 L Hgb 9.5 L Hct 28.1 L MCV 88.8 MCH 29.9 MCHC 33.7 RDW 16.4 H Plt Count 17 L* D MPV 8.3 Neut % (Auto) 33.8 L Lymph % (Auto) 39.0 Garfield % (Auto) 24.8 H Eos % (Auto) 1.9 Baso % (Auto) 0.5 Neut # (Auto) 1.2 L Lymph # (Auto) 1.4 Garfield # (Auto) 0.9 H Eos # (Auto) 0.1 Baso # (Auto) 0.0 Neutrophils % (Manual) 39 L Lymphocytes % (Manual) 42 Monocytes % (Manual) 18 H Eosinophils % (Manual) 1 Platelet Estimate Decreased L Anisocytosis (manual) Slight Ovalocytes Slight Rouleaux Slight PT INR APTT Sodium 145 Potassium 4.6 Chloride 110 H Carbon Dioxide 18 L Anion Gap 22 H BUN 55 H Creatinine 2.0 H Est GFR ( Amer) 39 Est GFR (Non-Af Amer) 32 Random Glucose 118 H Calcium 9.0 Total Bilirubin 0.4 AST 31 ALT 42 Alkaline Phosphatase 104 Total Protein 8.5 H Albumin 3.9 Globulin 4.7 H Albumin/Globulin Ratio 0.8 L Blood Type O POSITIVE Antibody Screen Negative BBK History Checked Patient has bt 10/09/17 20:05 WBC RBC Hgb Hct MCV MCH MCHC RDW Plt Count MPV Neut % (Auto) Lymph % (Auto) Garfield % (Auto) Eos % (Auto) Baso % (Auto) Neut # (Auto) Lymph # (Auto) Garfield # (Auto) Eos # (Auto) Baso # (Auto) Neutrophils % (Manual) Lymphocytes % (Manual) Monocytes % (Manual) Eosinophils % (Manual) Platelet Estimate Anisocytosis (manual) Ovalocytes Rouleaux PT 11.6 INR 1.0 APTT 32.8 Sodium Potassium Chloride Carbon Dioxide Anion Gap BUN Creatinine Est GFR ( Amer) Est GFR (Non-Af Amer) Random Glucose Calcium Total Bilirubin AST ALT Alkaline Phosphatase Total Protein Albumin Globulin Albumin/Globulin Ratio Blood Type Antibody Screen BBK History Checked Assessment & Plan - Assessment and Plan (Free Text) Plan: 77 yo ,m,PMhx/o DM, recent diagnosis of Myelodysplastic Syndrome, Pancytopenia , CKD , admitted on observation for treatment of thrombocytopenia ( platelet transfusion ) Assessment/Plan 1) Dizziness -may be secondary to anemia -resolved in ED -denies n,v,d,diuretic use -orthostatic vital signs ordered. -f/u 2) Pancytopenia Secondary to myelodysplatic syndrome CBC: 3.5>9.5<17 -severe thrombocytopenia. -Platelet Transfusion -Dr Pace consulted: suggest platelet transfusion -f/u CBC 3) Myelodysplastic syndrome recent diagnosed -Bone marrow biopsy done on 09/04/17 reported as no evidence of an acute leukemia or plasma cell Dyscrasia. As per report findings as suggestive of myelodysplasia. -Patient had consult today with Dr Pace. Pending insurance issues to start treatment 4) CKD stage 3 - GFR 32 BUN/Cr 55/2.0 -renal US on 09/05/17 reported as multiple right renal cysts, left renal cyst. -f/u BMP -consider nephrology referral for f/u as outpatient 5) DM -Hgb a1c 6.6 -as per patient not on medication. controlled by diet 6) Systolic Murmur Pansystolic murmur 08/29 all areas radiated to neck. 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
[2017-10-10 06:12] LABS: BASO % 0.6 % (0.0-2.0); EOS % 1.4 % (0.0-4.0); HEMOGLOBIN 7.3 g/dL (12.0-18.0); LYMPH # 1.2 K/uL (1.0-4.3); MEAN CELL VOLUME 88.3 fl (80.0-94.0); MEAN CORPUSCULAR HEMOGLOBIN 29.7 pg (27.0-31.0); MEAN CORPUSCULAR HGB CONC 33.6 g/dL (33.0-37.0); MEAN PLATELET VOLUME 6.5 fl (7.2-11.7); MONO # 0.9 K/uL (0.0-0.8); MONO % 27.8 % (0.0-10.0); NEUT # 1.2 K/uL (1.8-7.0); NEUT % 36.2 % (50.0-75.0); NRBC % 0.1 % (0.0-0.0); PLATELET COUNT 49 K/uL (130-400); RBC 2.47 Mil/uL (4.40-5.90); RED CELL DISTRIBUTION WIDTH 16.7 % (11.5-14.5); WHITE BLOOD COUNT 3.4 K/uL (4.8-10.8)
[2017-10-10 06:21] LABS: PARTIAL THROMBOPLASTIN TIME 30.8 Seconds (25.6-37.1); PROTHROMBIN TIME 11.6 Seconds (9.8-13.1)
[2017-10-10 06:35] LABS: ALB/GLOB RATIO 0.8 (1.0-2.1); ALBUMIN 3.2 g/dL (3.5-5.0); CALCIUM 8.6 mg/dL (8.4-10.2)
[2017-10-10 13:36] LABS: ANISOCYTOSIS SLIGHT; BASOPHIL 1 % (0-2); EOSINOPHIL 2 % (0-7); HYPOCHROMIC SLIGHT; LYMPHOCYTE 30 % (20-50); METAMYELOCYTE 1 % (0-0); MONOCYTE 23 % (0-10); MYELOCYTE 1 % (0-0); NEUTROPHIL 42 % (42-75); OVALOCYTES SLIGHT; PLATELET ESTIMATE DECREASED (NORMAL); TOTAL CELLS COUNTED 100
[2017-10-10 13:37] LABS: SCHISTOCYTES SLIGHT; TEARDROP CELLS SLIGHT; TOXIC GRANULATION PRESENT
--- NOTE | 2017-10-10 19:39 | CP.PCM.CON ---
History of Present Illness - History of Present Illness History of Present Illness: 77 year old male with a history of DM, MDS diagnosed 08/2017 admitted for symptomatic anemia. The patient was seen in my office yesterday and felt weak. He reports to easy bruising and bleeding. He has had bruises increasing on his tongue. He denies fevers and chills. He is currently undergoing PRBC transfusion and reports to feeling better. Past medical history: DM, HL, MDS Past surgical history: Foot surgery Family history: Mother had bone cancer Social history: Denies tobacco, alcohol, and illicit drug use. Allergies: NKA Review of systems: All remaining review of systems including HEENT, cardiovascular, respiratory, gastrointestinal, genitourinary, musculoskeletal, dermatologic, neurologic, and psychiatric are negative unless mentioned in the HPI. Past Patient History - Infectious Disease Hx of Infectious Diseases: None - Past Medical History & Family History Past Medical History?: Yes - Past Social History Smoking Status: Never Smoked - CARDIAC Hx Hypercholesterolemia: Yes Hx Hypertension: Yes - PULMONARY Hx Respiratory Disorders: No - NEUROLOGICAL Hx Neurological Disorder: No - HEENT Hx HEENT Problems: No - RENAL Hx Chronic Kidney Disease: No - ENDOCRINE/METABOLIC Hx Endocrine Disorders: Yes - HEMATOLOGICAL/ONCOLOGICAL Hx Anemia: Yes Hx Human Immunodeficiency Virus (HIV): No - INTEGUMENTARY Hx Dermatological Problems: No - MUSCULOSKELETAL/RHEUMATOLOGICAL Hx Musculoskeletal Disorders: Yes Hx Back Pain: Yes Hx Falls: No - GASTROINTESTINAL Hx Gastrointestinal Disorders: No - GENITOURINARY/GYNECOLOGICAL Hx Genitourinary Disorders: No - PSYCHIATRIC Hx Psychophysiologic Disorder: No Hx Substance Use: No - SURGICAL HISTORY Hx Surgeries: Yes - ANESTHESIA Hx Anesthesia: Yes Hx Anesthesia Reactions: No Hx Malignant Hyperthermia: No Has any member of the family had a problem w/ anesthesia?: No Meds Allergies/Adverse Reactions: Allergies Allergy/AdvReac Type Severity Reaction Status Date / Time No Known Allergies Allergy Verified 10/09/17 18:50 - Medications Medications: Current Medications Acetaminophen (Tylenol 325mg Tab) 650 mg PO Q6 PRN PRN Reason: Pain, Mild (1-3) Last Admin: 10/10/17 16:59 Dose: 650 mg Ferrous Sulfate (Feosol) 325 mg PO TID [facility] Last Admin: 10/10/17 16:27 Dose: 325 mg Hydrochlorothiazide (Microzide) 12.5 mg PO DAILY [facility] Last Admin: 10/10/17 11:12 Dose: 12.5 mg Physical Exam - Head Exam Head Exam: ATRAUMATIC - Eye Exam Eye Exam: Normal appearance - ENT Exam ENT Exam: Mucous Membranes Dry - Respiratory Exam Respiratory Exam: NORMAL BREATHING PATTERN - Cardiovascular Exam Cardiovascular Exam: +S1, +S2 - GI/Abdominal Exam GI & Abdominal Exam: Normal Bowel Sounds - Extremities Exam Extremities exam: Positive for: pedal edema - Neurological Exam Neurological exam: Oriented x3 - Psychiatric Exam Psychiatric exam: Normal Affect, Normal Mood - Skin Skin Exam: Warm Results - Vital Signs Recent Vital Signs: Last Vital Signs Temp 98.5 F 10/10/17 15:46 Pulse 81 10/10/17 15:46 Resp 19 10/10/17 15:46 BP 165/75 H 10/10/17 15:46 Pulse Ox 98 10/10/17 15:46 - Labs Result Diagrams: 10/10/17 05:40 10/10/17 05:40 Labs: Laboratory Results - last 24 hr 10/09/17 10/09/17 10/09/17 20:00 20:05 20:05 WBC 3.5 L RBC 3.16 L Hgb 9.5 L Hct 28.1 L MCV 88.8 MCH 29.9 MCHC 33.7 RDW 16.4 H Plt Count 17 L* D MPV 8.3 Neut % (Auto) 33.8 L Lymph % (Auto) 39.0 Hartley % (Auto) 24.8 H Eos % (Auto) 1.9 Baso % (Auto) 0.5 Neut # (Auto) 1.2 L Lymph # (Auto) 1.4 Hartley # (Auto) 0.9 H Eos # (Auto) 0.1 Baso # (Auto) 0.0 Neutrophils % (Manual) 39 L Lymphocytes % (Manual) 42 Monocytes % (Manual) 18 H Eosinophils % (Manual) 1 Basophils % (Manual) Metamyelocytes % Myelocytes % Toxic Granulation Platelet Estimate Decreased L Hypochromasia (manual) Anisocytosis (manual) Slight Tear Drop Cells Ovalocytes Slight Rouleaux Slight Schistocytes PT INR APTT Sodium 145 Potassium 4.6 Chloride 110 H Carbon Dioxide 18 L Anion Gap 22 H BUN 55 H Creatinine 2.0 H Est GFR ( Amer) 39 Est GFR (Non-Af Amer) 32 POC Glucose (mg/dL) Random Glucose 118 H Calcium 9.0 Total Bilirubin 0.4 AST 31 ALT 42 Alkaline Phosphatase 104 Total Protein 8.5 H Albumin 3.9 Globulin 4.7 H Albumin/Globulin Ratio 0.8 L Blood Type O POSITIVE Antibody Screen Negative Crossmatch See Detail BBK History Checked Patient has bt 10/09/17 10/10/17 10/10/17 20:05 05:29 05:40 WBC 3.4 L RBC 2.47 L Hgb 7.3 L D Hct 21.8 L MCV 88.3 MCH 29.7 MCHC 33.6 RDW 16.7 H Plt Count 49 L D MPV 6.5 L Neut % (Auto) 36.2 L Lymph % (Auto) 34.0 Hartley % (Auto) 27.8 H Eos % (Auto) 1.4 Baso % (Auto) 0.6 Neut # (Auto) 1.2 L Lymph # (Auto) 1.2 Hartley # (Auto) 0.9 H Eos # (Auto) 0.0 Baso # (Auto) 0.0 Neutrophils % (Manual) 42 Lymphocytes % (Manual) 30 Monocytes % (Manual) 23 H Eosinophils % (Manual) 2 Basophils % (Manual) 1 Metamyelocytes % 1 H Myelocytes % 1 H Toxic Granulation Present Platelet Estimate Decreased L Hypochromasia (manual) Slight Anisocytosis (manual) Slight Tear Drop Cells Slight Ovalocytes Slight Rouleaux Schistocytes Slight PT 11.6 INR 1.0 APTT 32.8 Sodium Potassium Chloride Carbon Dioxide Anion Gap BUN Creatinine Est GFR ( Amer) Est GFR (Non-Af Amer) POC Glucose (mg/dL) 101 Random Glucose Calcium Total Bilirubin AST ALT Alkaline Phosphatase Total Protein Albumin Globulin Albumin/Globulin Ratio Blood Type Antibody Screen Crossmatch BBK History Checked 10/10/17 10/10/17 10/10/17 05:40 05:40 10:53 WBC RBC Hgb Hct MCV MCH MCHC RDW Plt Count MPV Neut % (Auto) Lymph % (Auto) Hartley % (Auto) Eos % (Auto) Baso % (Auto) Neut # (Auto) Lymph # (Auto) Hartley # (Auto) Eos # (Auto) Baso # (Auto) Neutrophils % (Manual) Lymphocytes % (Manual) Monocytes % (Manual) Eosinophils % (Manual) Basophils % (Manual) Metamyelocytes % Myelocytes % Toxic Granulation Platelet Estimate Hypochromasia (manual) Anisocytosis (manual) Tear Drop Cells Ovalocytes Rouleaux Schistocytes PT 11.6 INR 1.0 APTT 30.8 Sodium 144 Potassium 4.3 Chloride 111 H Carbon Dioxide 20 L Anion Gap 17 BUN 50 H Creatinine 1.9 H Est GFR ( Amer) 42 Est GFR (Non-Af Amer) 34 POC Glucose (mg/dL) 217 H Random Glucose 110 Calcium 8.6 Total Bilirubin 0.3 AST 36 ALT 53 Alkaline Phosphatase 98 Total Protein 7.2 Albumin 3.2 L Globulin 4.0 H Albumin/Globulin Ratio 0.8 L Blood Type Antibody Screen Crossmatch BBK History Checked 10/10/17 15:31 WBC RBC Hgb Hct MCV MCH MCHC RDW Plt Count MPV Neut % (Auto) Lymph % (Auto) Hartley % (Auto) Eos % (Auto) Baso % (Auto) Neut # (Auto) Lymph # (Auto) Hartley # (Auto) Eos # (Auto) Baso # (Auto) Neutrophils % (Manual) Lymphocytes % (Manual) Monocytes % (Manual) Eosinophils % (Manual) Basophils % (Manual) Metamyelocytes % Myelocytes % Toxic Granulation Platelet Estimate Hypochromasia (manual) Anisocytosis (manual) Tear Drop Cells Ovalocytes Rouleaux Schistocytes PT INR APTT Sodium Potassium Chloride Carbon Dioxide Anion Gap BUN Creatinine Est GFR ( Amer) Est GFR (Non-Af Amer) POC Glucose (mg/dL) 105 Random Glucose Calcium Total Bilirubin AST ALT Alkaline Phosphatase Total Protein Albumin Globulin Albumin/Globulin Ratio Blood Type Antibody Screen Crossmatch BBK History Checked Assessment & Plan (1) Pancytopenia Assessment and Plan: secondary to MDS transfusion support; s/p 1 bag platelets and 2U PRBC Status: Acute (2) Myelodysplasia (myelodysplastic syndrome) Assessment and Plan: transfusion dependent for platelets and PRBC will check EPO level transfusion support PRN will give a dose of Procrit outpatient treatment Thank you for this interesting consult. Status: Acute
[2017-10-11] MEDS: Oxycodone/Acetaminophen 5/325 mg Tab PO PRN ×2 (06:12→14:09)
[2017-10-11 06:51] LABS: HEMOGLOBIN 10.6 g/dL (12.0-18.0); MEAN CELL VOLUME 86.6 fl (80.0-94.0); MEAN CORPUSCULAR HEMOGLOBIN 29.1 pg (27.0-31.0); MEAN CORPUSCULAR HGB CONC 33.7 g/dL (33.0-37.0); RBC 3.64 Mil/uL (4.40-5.90); RED CELL DISTRIBUTION WIDTH 16.8 % (11.5-14.5); WHITE BLOOD COUNT 3.6 K/uL (4.8-10.8)
[2017-10-11] MEDS ORDERED: Epoetin Alfa 40000 UNIT/ml Inj SC ONE (10:00)
--- NOTE | 2017-10-11 13:52 | CT ---
PROCEDURE: CT Abdomen and Pelvis without intravenous contrast HISTORY: Hematuria, CKD, h/o multiples cyst b/l COMPARISON: Unenhanced abdomen pelvis CT examination 01/29/[address] from 12/24/2014. TECHNIQUE: Helical CT of the abdomen and pelvis was performed without oral or intravenous contrast as per referring physician request. Contrast Dose: None Radiation dose: Total exam DLP = 236.95 mGy-cm. This CT exam was performed using one or more of the following dose reduction techniques: Automated exposure control, adjustment of the mA and/or kV according to patient size, and/or use of iterative reconstruction technique. FINDINGS: LOWER THORAX: A 4 mm noncalcified nodule or varix is seen at the right lower lobe in image 1 series 5 unchanged in size compared to 01/29/[address] rendering this a benign finding. Linear atelectasis or fibrosis in the bilateral lung bases with trace atelectasis in the right middle lobe base. Nonspecific ground-glass opacities identified occasionally bilaterally as well. Stable cardiomegaly. LIVER: A few tiny punctate granulomata are scattered the liver once again. No gross lesion or ductal dilatation. GALLBLADDER AND BILE DUCTS: Unremarkable. PANCREAS: Unremarkable. No gross lesion or ductal dilatation. SPLEEN: Unremarkable. ADRENALS: Unremarkable. No mass. KIDNEYS AND URETERS: Complex cystic changes at the mid to lower pole right kidney are again identified including intramural or intraluminal calcifications, likely reflective of an aggregate of multiple cysts. The aggregate measures 8.8 x 11.1 by 9.0 cm and appears slightly changed in shape and orientation in the interval previously measuring 8.9 x 7.5 x 10.0 cm, both measurements are transverse by superoinferior by anteroposterior dimensions. These measurements are based on coronal imaging primarily. No interval change in sharyn and pararenal soft tissue is seen and soft tissue resolution would be better under ultrasound or MRI than CT without contrast. The left kidney is stable and grossly nonfocal as imaged. VASCULATURE: Unremarkable. No aortic aneurysm. BOWEL: Unremarkable. No obstruction. No gross mural thickening. APPENDIX: Unremarkable. Normal appendix. PERITONEUM: Unremarkable. No free fluid. No free air. LYMPH NODES: Unremarkable. No enlarged lymph nodes. BLADDER: Unremarkable. REPRODUCTIVE: Enlarged prostate gland noted once again. BONES: No acute fracture. OTHER FINDINGS: None. IMPRESSION: 1. Slightly larger appearing aggregate of complex cystic changes mid to lower pole right kidney no measure 11.1 cm greatest dimension. Further evaluation by ultrasound or MRI can be performed for greater soft tissue resolution as clinically warranted. Left kidney remains unremarkable as well as the urinary bladder. Lack images contrast limits interpretation. 2. A few tiny scattered hepatic granulomata are reiterated. 3. Further prostate gland enlargement.
--- NOTE | 2017-10-11 18:11 | CP.PCM.PN ---
Subjective - Date & Time of Evaluation Date of Evaluation: 10/11/17 Time of Evaluation: 07:52 - Subjective Subjective: Patient seen and examined this morning, reports feeling better, afebrile. States better appetite. Denies active bleeding at this time, chills, N/V, no chest pain, sob or abdominal pain. No urinary symptoms, melena or hematochezia. Objective - Vital Signs/Intake and Output Vital Signs (last 24 hours): Temp Pulse Resp BP Pulse Ox 98.5 F 83 18 145/83 97 10/11/17 16:14 10/11/17 16:14 10/11/17 16:14 10/11/17 16:14 10/11/17 16:14 - Medications Medications: Current Medications Acetaminophen (Tylenol 325mg Tab) 650 mg PO Q6 PRN PRN Reason: Pain, Mild (1-3) Last Admin: 10/10/17 16:59 Dose: 650 mg Ferrous Sulfate (Feosol) 325 mg PO BID [facility] Last Admin: 10/11/17 16:42 Dose: 325 mg Hydrochlorothiazide (Microzide) 12.5 mg PO DAILY [facility] Last Admin: 10/11/17 08:12 Dose: 12.5 mg Oxycodone/Acetaminophen (Percocet 5/325 Mg Tab) 1 tab PO Q6 PRN PRN Reason: Pain, severe (8-10) Stop: 10/14/17 06:02 Last Admin: 10/11/17 14:09 Dose: 1 tab Sennosides (Senokot Tab) 17.2 mg PO HS [facility] - Labs Labs: 10/11/17 05:45 10/10/17 05:40 PT 11.6 Seconds (9.8-13.1) 10/10/17 05:40 INR 1.0 (0.9-1.2) 10/10/17 05:40 APTT 30.8 Seconds (25.6-37.1) 10/10/17 05:40 - Constitutional Appears: No Acute Distress - Head Exam Head Exam: NORMAL INSPECTION - ENT Exam ENT Exam: Mucous Membranes Moist - Respiratory Exam Respiratory Exam: Clear to Ausculation Bilateral, NORMAL BREATHING PATTERN. absent: Wheezes - Cardiovascular Exam Cardiovascular Exam: REGULAR RHYTHM, +S1, +S2. absent: Tachycardia - GI/Abdominal Exam GI & Abdominal Exam: Soft, Normal Bowel Sounds. absent: Distended, Tenderness - Extremities Exam Extremities Exam: absent: Calf Tenderness - Neurological Exam Neurological Exam: Alert, Awake, CN II-XII Intact, Oriented x3 - Psychiatric Exam Psychiatric exam: Normal Mood - Skin Skin Exam: Petechiae (diffuse over face and lower extremities) Assessment and Plan - Assessment and Plan (Free Text) Assessment: 77 yo ,m, PMhx/o DM, recent diagnosis of MDS, Pancytopenia, CKD , admitted for treatment of thrombocytopenia ( platelet transfusion ). Plan: 1- Dizziness, resolved -likely secondary to anemia 2- Pancytopenia -Secondary to myelodysplatic syndrome - CBC: 3.6<10.6/31.5>39 - s/p platelet transfusion 1 unit - s/p PRBC 2 units -Dr Pace on board, recs appreciated -f/u CBC 3- Myelodysplastic syndrome -Bone marrow biopsy done on 09/04/17 reported as no evidence of an acute leukemia or plasma cell Dyscrasia. As per report findings as suggestive of myelodysplasia. -Dr Pace on board 4- CKD stage 3 - GFR 32 BUN/Cr 55/2.0 - renal US on 09/05/17 reported as multiple right renal cysts, left renal cyst. - Renal CT 10/11: complex cystic changes mid to lower pole R kidney. Futher evaluation by US or MRI. L kidney remains unremarkable as well as the urinary bladder. 5 -DM -Hgb a1c 6.6 -as per patient not on medication. controlled by diet 6- DVT prophylaxis - Pt with severe thrombocytopenia and petechial rash on legs - No anticoagulation or SCD at this time.
--- NOTE | 2017-10-11 20:57 | CP.PCM.CON ---
History of Present Illness - History of Present Illness History of Present Illness: 77 year old male with PMHx IDDM2, Myelodysplastic syndrome seen at bedside with his brother complaining of right foot first digit pain. Patient states that pain has been present for roughly three months. He denies any trauma to the area. He states that the toe is exquisitely tender to touch and has been worsening over the last few months, especially when he walks. He also states that he uses Tylenol to deal with the pain which helps to alleviate the pain slightly. Patient denies any further pedal complaints at this time. He denies any recent N/V/F/C/CP/SOB/D/poserior calf pain when squeezed Review of Systems - Review of Systems Review of Systems: As per HPI Past Patient History - Infectious Disease Hx of Infectious Diseases: None - Past Medical History & Family History Past Medical History?: Yes - Past Social History Smoking Status: Never Smoked - CARDIAC Hx Hypercholesterolemia: Yes Hx Hypertension: Yes - PULMONARY Hx Respiratory Disorders: No - NEUROLOGICAL Hx Neurological Disorder: No - HEENT Hx HEENT Problems: No - RENAL Hx Chronic Kidney Disease: No - ENDOCRINE/METABOLIC Hx Endocrine Disorders: Yes - HEMATOLOGICAL/ONCOLOGICAL Hx Anemia: Yes Hx Human Immunodeficiency Virus (HIV): No - INTEGUMENTARY Hx Dermatological Problems: No - MUSCULOSKELETAL/RHEUMATOLOGICAL Hx Musculoskeletal Disorders: Yes Hx Back Pain: Yes Hx Falls: No - GASTROINTESTINAL Hx Gastrointestinal Disorders: No - GENITOURINARY/GYNECOLOGICAL Hx Genitourinary Disorders: No - PSYCHIATRIC Hx Psychophysiologic Disorder: No Hx Substance Use: No - SURGICAL HISTORY Hx Surgeries: Yes - ANESTHESIA Hx Anesthesia: Yes Hx Anesthesia Reactions: No Hx Malignant Hyperthermia: No Has any member of the family had a problem w/ anesthesia?: No Meds Allergies/Adverse Reactions: Allergies Allergy/AdvReac Type Severity Reaction Status Date / Time No Known Allergies Allergy Verified 10/09/17 18:50 - Medications Medications: Current Medications Acetaminophen (Tylenol 325mg Tab) 650 mg PO Q6 PRN PRN Reason: Pain, Mild (1-3) Last Admin: 10/10/17 16:59 Dose: 650 mg Ferrous Sulfate (Feosol) 325 mg PO BID [facility] Last Admin: 10/11/17 16:42 Dose: 325 mg Hydrochlorothiazide (Microzide) 12.5 mg PO DAILY [facility] Last Admin: 10/11/17 08:12 Dose: 12.5 mg Oxycodone/Acetaminophen (Percocet 5/325 Mg Tab) 1 tab PO Q6 PRN PRN Reason: Pain, severe (8-10) Stop: 10/14/17 06:02 Last Admin: 10/11/17 14:09 Dose: 1 tab Sennosides (Senokot Tab) 17.2 mg PO HS [place] Physical Exam - Constitutional Appears: Well, Non-toxic, No Acute Distress - Extremities Exam Additional comments: RLE focused exam: Vasc: DP/PT pulses faintly palpable 1/4 b/l. Skin temperature warm to warm from proximal to distal. CFT < 3 seconds to all digits. No edema noted b/l Neuro: Epicritic and protective sensation grossly intact b/l Derm: Dark, ecchymotic soft tissue changes appreciated at distal tuft of right hallux consistent with deep tissue injury. Diffuse hyperpigmentation most likely secondary to hemosiderin deposits noted to b/l feet. Otherwise no open lesions, wounds, maceration, xerosis, abnormal pigmentations or abnormal growths noted MSK: Severe POP to distal tuft of right hallux. Bony prominence noted to dorsomedial aspect of patient's R first MTPJ with limited ROM at that joint - Neurological Exam Neurological exam: Alert, Oriented x3 - Psychiatric Exam Psychiatric exam: Normal Affect, Normal Mood Results - Vital Signs Recent Vital Signs: Last Vital Signs Temp 98.5 F 10/11/17 16:14 Pulse 83 10/11/17 16:14 Resp 18 10/11/17 16:14 BP 145/83 10/11/17 16:14 Pulse Ox 97 10/11/17 16:14 - Labs Result Diagrams: 10/11/17 05:45 10/10/17 05:40 Labs: Laboratory Results - last 24 hr 10/10/17 10/11/17 10/11/17 21:35 05:33 05:45 WBC 3.6 L RBC 3.64 L Hgb 10.6 L D Hct 31.5 L MCV 86.6 MCH 29.1 MCHC 33.7 RDW 16.8 H Plt Count 39 L POC Glucose (mg/dL) 63 L 81 Uric Acid 10/11/17 10/11/17 10/11/17 09:19 11:43 15:31 WBC RBC Hgb Hct MCV MCH MCHC RDW Plt Count POC Glucose (mg/dL) 124 H 109 Uric Acid 6.7 Assessment & Plan - Assessment and Plan (Free Text) Assessment: 77 year old male seen at bedside for pain in distal right hallux most likely secondary to deep tissue injury Plan: Patient seen and evaluated Charts, labs, vitals reviewed Plan discussed with attending Dr. Fletcher Previous xray of right foot evaluated with no signs of bony abnormalities or trauma present to distal phalanx of right hallux. Stage 4 hallux rigidus arthritic changes noted at first MTPJ Explained to patient that the pain he is experiencing is most likely secondary to a deep tissue injury incurred as a result of not being able to dorsiflex his hallux appropriately during ambulation which may be leading to increased weight bearing at the distal hallux and subsequent deep tissue bruising Advised patient to limit weight bearing as much as possible and wear open toed shoes when possible Spoke with Family Medicine about placing a PT consult to teach patient various ways to offload the toe during ambulation Advised patient that surgical correction for his hallux rigidus is available should he choose to seek it No dressings applied at this time No plan for surgical intervention at this time Podiatry will continue to follow while patient in house - Date & Time Date: 10/11/17 Time: 19:13
--- NOTE | 2017-10-11 22:04 | CP.PCM.PN ---
Subjective - Date & Time of Evaluation Date of Evaluation: 10/11/17 Time of Evaluation: 11:00 - Subjective Subjective: No complaints. Objective - Vital Signs/Intake and Output Vital Signs (last 24 hours): Temp Pulse Resp BP Pulse Ox 98.5 F 83 18 145/83 97 10/11/17 16:14 10/11/17 16:14 10/11/17 16:14 10/11/17 16:14 10/11/17 16:14 - Medications Medications: Current Medications Acetaminophen (Tylenol 325mg Tab) 650 mg PO Q6 PRN PRN Reason: Pain, Mild (1-3) Last Admin: 10/10/17 16:59 Dose: 650 mg Ferrous Sulfate (Feosol) 325 mg PO BID [facility] Last Admin: 10/11/17 16:42 Dose: 325 mg Hydrochlorothiazide (Microzide) 12.5 mg PO DAILY [facility] Last Admin: 10/11/17 08:12 Dose: 12.5 mg Oxycodone/Acetaminophen (Percocet 5/325 Mg Tab) 1 tab PO Q6 PRN PRN Reason: Pain, severe (8-10) Stop: 10/14/17 06:02 Last Admin: 10/11/17 14:09 Dose: 1 tab Sennosides (Senokot Tab) 17.2 mg PO HS [facility] Last Admin: 10/11/17 21:44 Dose: 17.2 mg - Labs Labs: 10/11/17 05:45 10/10/17 05:40 PT 11.6 Seconds (9.8-13.1) 10/10/17 05:40 INR 1.0 (0.9-1.2) 10/10/17 05:40 APTT 30.8 Seconds (25.6-37.1) 10/10/17 05:40 - Head Exam Head Exam: ATRAUMATIC - Eye Exam Eye Exam: Normal appearance - ENT Exam ENT Exam: Mucous Membranes Dry - Respiratory Exam Respiratory Exam: NORMAL BREATHING PATTERN - Cardiovascular Exam Cardiovascular Exam: +S1, +S2 - GI/Abdominal Exam GI & Abdominal Exam: Normal Bowel Sounds Assessment and Plan (1) Pancytopenia Assessment & Plan: secondary to MDS transfusion dependent for platelets and PRBC s/p 1 dose Procrit Status: Acute (2) Myelodysplasia (myelodysplastic syndrome) Assessment & Plan: transfusion support PRN outpatient treatment Status: Acute
[2017-10-12 03:10] LABS: SQUAMOUS EPITHIAL < 1 /hpf (0-5); URINE BILIRUBIN NEGATIVE (NEGATIVE); URINE BLOOD MODERATE (NEGATIVE); URINE CLARITY CLEAR (Clear); URINE COLOR YELLOW (YELLOW); URINE GLUCOSE (UA) NEG (Normal); URINE LEUKOCYTE ESTERASE NEG Leu/uL (Negative); URINE PROTEIN 100 mg/dL (NEGATIVE); URINE UROBILINOGEN 0.2-1.0 mg/dL (0.2-1.0)
[2017-10-12] MEDS: Oxycodone/Acetaminophen 5/325 mg Tab PO PRN (08:23)
[2017-10-12 08:24] VITALS: BP 165/78; PULSE 82; RESP 20; TEMP 98; O2SAT 95
--- NOTE | 2017-10-12 11:58 | US ---
PROCEDURE: HISTORY: Ischemia to 1st toe. COMPARISON: None available. TECHNIQUE: Grayscale and duplex Doppler evaluation of the right common femoral, femoral, profunda femoral, popliteal, posterior tibial, anterior tibial and dorsalis pedis arteries was performed. Report prepared by cytology technologist. FINDINGS: RIGHT LOWER EXTREMITY: * Common Femoral Artery: Peak Systolic Velocity - 85.0: Doppler Waveform: Biphasic: Plaque description - none * Femoral Artery o Proximal Segment: Peak Systolic Velocity - 41.9: Doppler Waveform: Biphasic: Plaque description - Homogeneous o Middle Segment: Peak Systolic Velocity - 44.4: Doppler Waveform: Biphasic: Plaque description - Homogeneous o Distal Segment: Peak Systolic Velocity - 45.3: Doppler Waveform: Biphasic: Plaque description - Homogeneous * Popliteal Artery o Peak Systolic Velocity - 27.9: Doppler Waveform: Biphasic: Plaque description - Heterogeneous * Posterior Tibial Artery: Peak Systolic Velocity - 23.6: Doppler Waveform: Monophasic: Plaque description - Heterogeneous * Anterior Tibial Artery: Peak Systolic Velocity - 13.2: Doppler Waveform: Monophasic: Plaque description - Heterogeneous * Dorsalis Pedis Artery: Peak Systolic Velocity - 23.2: Doppler Waveform: Monophasic: Plaque description - Calcific OTHER FINDINGS: None. IMPRESSION: There is no evidence of hemodynamically significant arterial insufficiency in the right lower extremity.
--- NOTE | 2017-10-12 12:22 | CP.PCM.PN ---
Subjective - Date & Time of Evaluation Date of Evaluation: 10/12/17 Time of Evaluation: 12:00 - Subjective Subjective: No complaints. Objective - Vital Signs/Intake and Output Vital Signs (last 24 hours): Temp Pulse Resp BP Pulse Ox 98 F 82 20 165/78 H 95 10/12/17 09:00 10/12/17 09:00 10/12/17 09:00 10/12/17 09:00 10/12/17 09:00 - Medications Medications: Current Medications Acetaminophen (Tylenol 325mg Tab) 650 mg PO Q6 PRN PRN Reason: Pain, Mild (1-3) Last Admin: 10/10/17 16:59 Dose: 650 mg Ferrous Sulfate (Feosol) 325 mg PO BID [facility] Last Admin: 10/12/17 08:24 Dose: 325 mg Hydrochlorothiazide (Microzide) 12.5 mg PO DAILY [facility] Last Admin: 10/12/17 08:24 Dose: 12.5 mg Oxycodone/Acetaminophen (Percocet 5/325 Mg Tab) 1 tab PO Q6 PRN PRN Reason: Pain, severe (8-10) Stop: 10/14/17 06:02 Last Admin: 10/12/17 08:23 Dose: 1 tab Sennosides (Senokot Tab) 17.2 mg PO HS [facility] Last Admin: 10/11/17 21:44 Dose: 17.2 mg - Labs Labs: 10/11/17 05:45 10/10/17 05:40 PT 11.6 Seconds (9.8-13.1) 10/10/17 05:40 INR 1.0 (0.9-1.2) 10/10/17 05:40 APTT 30.8 Seconds (25.6-37.1) 10/10/17 05:40 - Head Exam Head Exam: ATRAUMATIC - Eye Exam Eye Exam: Normal appearance - ENT Exam ENT Exam: Mucous Membranes Dry - Respiratory Exam Respiratory Exam: NORMAL BREATHING PATTERN - Cardiovascular Exam Cardiovascular Exam: +S1, +S2 - GI/Abdominal Exam GI & Abdominal Exam: Normal Bowel Sounds Assessment and Plan (1) Pancytopenia Assessment & Plan: secondary to MDS transfusion dependence for PRBS and platelets Status: Acute (2) Myelodysplasia (myelodysplastic syndrome) Assessment & Plan: transfusion support s/p Procrit outpatient treatment Status: Acute
--- NOTE | 2017-10-12 13:20 | CP.PCM.DIS ---
Provider - Provider Date of Admission: 10/11/17 22:04 Attending physician: Karina Luevano MD Consults: Heme/Onco Dr Pace. Time Spent in preparation of Discharge (in minutes): 30 Hospital Course - Lab Results Lab Results: Most Recent Lab Values WBC 3.6 K/uL (4.8-10.8) L 10/11/17 05:45 RBC 3.64 Mil/uL (4.40-5.90) L 10/11/17 05:45 Hgb 10.6 g/dL (12.0-18.0) L D 10/11/17 05:45 Hct 31.5 % (35.0-51.0) L 10/11/17 05:45 MCV 86.6 fl (80.0-94.0) 10/11/17 05:45 MCH 29.1 pg (27.0-31.0) 10/11/17 05:45 MCHC 33.7 g/dL (33.0-37.0) 10/11/17 05:45 RDW 16.8 % (11.5-14.5) H 10/11/17 05:45 Plt Count 39 K/uL (130-400) L 10/11/17 05:45 MPV 6.5 fl (7.2-11.7) L 10/10/17 05:40 Neut % (Auto) 36.2 % (50.0-75.0) L 10/10/17 05:40 Lymph % (Auto) 34.0 % (20.0-40.0) 10/10/17 05:40 [place] % (Auto) 27.8 % (0.0-10.0) H 10/10/17 05:40 Eos % (Auto) 1.4 % (0.0-4.0) 10/10/17 05:40 Baso % (Auto) 0.6 % (0.0-2.0) 10/10/17 05:40 Neut # (Auto) 1.2 K/uL (1.8-7.0) L 10/10/17 05:40 Lymph # (Auto) 1.2 K/uL (1.0-4.3) 10/10/17 05:40 [place] # (Auto) 0.9 K/uL (0.0-0.8) H 10/10/17 05:40 Eos # (Auto) 0.0 K/uL (0.0-0.7) 10/10/17 05:40 Baso # (Auto) 0.0 K/uL (0.0-0.2) 10/10/17 05:40 Neutrophils % (Manual) 42 % (42-75) 10/10/17 05:40 Lymphocytes % (Manual) 30 % (20-50) 10/10/17 05:40 Monocytes % (Manual) 23 % (0-10) H 10/10/17 05:40 Eosinophils % (Manual) 2 % (0-7) 10/10/17 05:40 Basophils % (Manual) 1 % (0-2) 10/10/17 05:40 Metamyelocytes % 1 % (0-0) H 10/10/17 05:40 Myelocytes % 1 % (0-0) H 10/10/17 05:40 Toxic Granulation Present 10/10/17 05:40 Platelet Estimate Decreased (NORMAL) L 10/10/17 05:40 Hypochromasia (manual) Slight 10/10/17 05:40 Anisocytosis (manual) Slight 10/10/17 05:40 Tear Drop Cells Slight 10/10/17 05:40 Ovalocytes Slight 10/10/17 05:40 Rouleaux Slight 10/09/17 20:05 Schistocytes Slight 10/10/17 05:40 PT 11.6 Seconds (9.8-13.1) 10/10/17 05:40 INR 1.0 (0.9-1.2) 10/10/17 05:40 APTT 30.8 Seconds (25.6-37.1) 10/10/17 05:40 Sodium 144 mmol/l (132-148) 10/10/17 05:40 Potassium 4.3 MMOL/L (3.6-5.0) 10/10/17 05:40 Chloride 111 mmol/L (98-107) H 10/10/17 05:40 Carbon Dioxide 20 mmol/L (22-30) L 10/10/17 05:40 Anion Gap 17 (10-20) 10/10/17 05:40 BUN 50 mg/dl (9-20) H 10/10/17 05:40 Creatinine 1.9 mg/dl (0.8-1.5) H 10/10/17 05:40 Est GFR ( Amer) 42 10/10/17 05:40 Est GFR (Non-Af Amer) 34 10/10/17 05:40 POC Glucose (mg/dL) 94 mg/dL (65-110) 10/12/17 11:09 Random Glucose 110 mg/dL (75-110) 10/10/17 05:40 Uric Acid 6.7 mg/Dl (3.5-8.5) 10/11/17 09:19 Calcium 8.6 mg/dL (8.4-10.2) 10/10/17 05:40 Erythropoietin 9.1 mIU/mL (2.6-18.5) 10/11/17 05:45 Total Bilirubin 0.3 mg/dl (0.2-1.3) 10/10/17 05:40 AST 36 U/L (17-59) 10/10/17 05:40 ALT 53 U/L (21-72) 10/10/17 05:40 Alkaline Phosphatase 98 U/L (38-126) 10/10/17 05:40 Total Protein 7.2 G/DL (6.3-8.2) 10/10/17 05:40 Albumin 3.2 g/dL (3.5-5.0) L 10/10/17 05:40 Globulin 4.0 gm/dL (2.2-3.9) H 10/10/17 05:40 Albumin/Globulin Ratio 0.8 (1.0-2.1) L 10/10/17 05:40 Urine Color Yellow (YELLOW) 10/12/17 03:01 Urine Clarity Clear (Clear) 10/12/17 03:01 Urine pH 5.0 (5.0-8.0) 10/12/17 03:01 Ur Specific [place] 1.014 (1.003-1.030) 10/12/17 03:01 Urine Protein 100 mg/dL (NEGATIVE) 10/12/17 03:01 Urine Glucose (UA) Neg mg/dL (Normal) 10/12/17 03:01 Urine Ketones Negative mg/dL (NEGATIVE) 10/12/17 03:01 Urine Blood Moderate (NEGATIVE) 10/12/17 03:01 Urine Nitrate Negative (NEGATIVE) 10/12/17 03:01 Urine Bilirubin Negative (NEGATIVE) 10/12/17 03:01 Urine Urobilinogen 0.2-1.0 mg/dL (0.2-1.0) 10/12/17 03:01 Ur Leukocyte Esterase Neg Patric/uL (Negative) 10/12/17 03:01 Urine RBC (Auto) 12 /hpf (0-3) H 10/12/17 03:01 Urine Microscopic WBC < 1 /hpf (0-5) 10/12/17 03:01 Ur Squamous Epith Cells < 1 /hpf (0-5) 10/12/17 03:01 Blood Type O POSITIVE 10/09/17 20:00 Antibody Screen Negative 10/09/17 20:00 Crossmatch See Detail 10/09/17 20:00 BBK History Checked Patient has bt 10/09/17 20:00 - Hospital Course Hospital Course: 77 y/o male with PMHx of diabetes, and recent diagnosis of Myelodysplastic Syndrome admitted due to severe thrombocytopenia. He was advised by Dr. Pace to have a CBC done and presents to ER for evaluation. Presents with pancytopenia, Labs: Pancytopenia CBC: 3.5>7.3<17, patient received 2 units PRBC and 1 unit of platelet. Heme/onc Dr. Pace on board. During admission patient was c/o R great toe pain, echymosis on the toe tip appreciated, Podiatry consulted: most likely secondary to a deep tissue injury incurred as a result of not being able to dorsiflex his hallux appropriately during ambulation which may be leading to increased weight bearing at the distal hallux. R leg US r/o arterial insufficiency. Uric acid wnl. Also was found hematuria, patient w/ h/o complex cyst on R kidney. Renal CT on admission unchanged from previous one on 12/24/14. Recommended renal MRI as outpatient, script provided. Hypertension noted on admission pt was started on HCTZ 12.5 mg daily. Labs stable CBC 3.6<10.6/31.5>39, pt stable at discharge time. Further management of MDS by Heme/onco as outpatient -keep platelets above 20. pt to f/ u in 2 weeks for repeat CBC. Discharge Exam - Head Exam Head Exam: NORMAL INSPECTION - Eye Exam Eye Exam: EOMI, PERRL - Respiratory Exam Respiratory Exam: Clear to PA & Lateral, NORMAL BREATHING PATTERN - Cardiovascular Exam Cardiovascular Exam: REGULAR RHYTHM, +S1, +S2. absent: Tachycardia - GI/Abdominal Exam GI & Abdominal Exam: Normal Bowel Sounds, Soft. absent: Tenderness - Neurological Exam Neurological exam: Alert, CN II-XII Intact, Oriented x3 - Skin Skin Exam: Petechiae (diffuse ove face) Discharge Plan - Discharge Medications Prescriptions: Ferrous Sulfate [Feosol] 325 mg PO BID #60 tab hydroCHLOROthiazide [Microzide] 12.5 mg PO DAILY #30 cap - Follow Up Plan Condition: STABLE Disposition: HOME/ ROUTINE Instructions: Myelodysplastic Syndromes (DC), Bone Marrow Failure in Children ( DC), Bone Marrow Failure in Children (GEN), Myelodysplastic Syndromes (GEN) Additional Instructions: Patient will receive a call from Jennifer Marlow to confirm the appt at [facility]. Referrals: Ty Pace MD [Staff Provider] - [facility] [place] [Outside]
== END 2017-10-12 16:00 | disposition home or self-care (01) | DRG 897 ==
LOC: H.ER 18:48 → OBSVTOIN 21:12 → UNDOADMOB 21:12 → H.ERHOLD 21:12 → INTOOBSV 21:12 → H.ERHOLD 23:12 → H.MEDSURG1 23:12 → OBSVTOIN 10-11 22:04 → H.MEDSURG1 10-11 22:04
PROVIDERS: ADMIT Family Medicine Geriatric Medicine; ATTEND Family Medicine Geriatric Medicine
PROC: 6A550Z2 Pheresis of Platelets, Single (ICD-10-PCS; principal; 2017-10-10)
PROC: 30233N1 Transfusion of Nonautologous Red Blood Cells into Peripheral Vein, Percutaneous Approach (ICD-10-PCS; 2017-10-10)
PROC: 0HBRXZZ Excision of Toe Nail, External Approach (ICD-10-PCS; 2017-10-11)
PROC: 0HBRXZZ Excision of Toe Nail, External Approach (ICD-10-PCS; 2017-10-11)
PROC: 0HBRXZZ Excision of Toe Nail, External Approach (ICD-10-PCS; 2017-10-11)
PROC: 0HBRXZZ Excision of Toe Nail, External Approach (ICD-10-PCS; 2017-10-11)
PROC: 0HBRXZZ Excision of Toe Nail, External Approach (ICD-10-PCS; 2017-10-11)
PROC: 0HBRXZZ Excision of Toe Nail, External Approach (ICD-10-PCS; 2017-10-11)
PROC: 0HBRXZZ Excision of Toe Nail, External Approach (ICD-10-PCS; 2017-10-11)
PROC: 0HBRXZZ Excision of Toe Nail, External Approach (ICD-10-PCS; 2017-10-11)
PROC: 0HBRXZZ Excision of Toe Nail, External Approach (ICD-10-PCS; 2017-10-11)
PROC: 0HBRXZZ Excision of Toe Nail, External Approach (ICD-10-PCS; 2017-10-11)
DX: D61.818 Other pancytopenia (principal); D69.59 Other secondary thrombocytopenia; D46.Z Other myelodysplastic syndromes; N18.3 Chronic kidney disease, stage 3 (moderate); E11.22 Type 2 diabetes mellitus with diabetic chronic kidney disease; I12.9 Hypertensive chronic kidney disease with stage 1 through stage 4 chronic kidney disease, or unspecified chronic kidney disease; L60.8 Other nail disorders; E78.5 Hyperlipidemia, unspecified; E78.00 Pure hypercholesterolemia, unspecified; N28.1 Cyst of kidney, acquired; Z79.4 Long term (current) use of insulin; Z79.84 Long term (current) use of oral hypoglycemic drugs

== ENCOUNTER 2017-10-16 15:28 | Observation (INO) | payer MEDICAID ==
--- NOTE | 2017-10-16 16:14 | ED PDOC ---
HPI: General Adult Time Seen by Provider: 10/16/17 15:41 Chief Complaint (Nursing): Abnormal Labs Chief Complaint (Provider): Abnormal labs History Per: Patient History/Exam Limitations: no limitations Onset/Duration Of Symptoms: Hrs (today) Current Symptoms Are (Timing): Still Present Additional Complaint(s): Vijay Bravo is a 77 year old male, with a past medical history of HTN, diabetes, and anemia, who was sent to the emergency department from clinic due to abnormal labs onset today. Patient is currently complaining of bilateral leg pain. Patient states he had blood drawn upstairs and was advised to go to the clinic. He had his results seen by an MD in the clinic and was advised to come the ED. Patient reports leg pain and difficulty walking whenever he has abnormal blood levels. He states he already had x2 transfusions done, last blood transfusion was on Monday. He denies any chest pain or shortness of breath. No further medical complaints. PMD: None provided. Past Medical History Reviewed: Historical Data, Nursing Documentation, Vital Signs Vital Signs: Last Vital Signs Temp 98.2 F 10/16/17 15:31 Pulse 86 10/16/17 15:31 Resp 18 10/16/17 15:31 BP 163/69 H 10/16/17 15:31 Pulse Ox 99 10/16/17 16:26 - Medical History PMH: Anemia, Diabetes, HTN, Hypercholesterolemia Denies: HIV, Chronic Kidney Disease - Surgical History Surgical History: No Surg Hx - Family History Family History: States: Unknown Family Hx - Social History Current smoker - smoking cessation education provided: No Alcohol: None Drugs: Denies - Home Medications Home Medications: Ambulatory Orders Medication Instructions Recorded Ferrous Sulfate [Feosol] 325 mg PO BID #60 tab 10/12/17 hydroCHLOROthiazide [Microzide] 12.5 mg PO DAILY #30 cap 10/12/17 Acetaminophen [Tylenol 325mg tab] 325 mg PO Q6 PRN 10/16/17 - Allergies Allergies/Adverse Reactions: Allergies Allergy/AdvReac Type Severity Reaction Status Date / Time No Known Allergies Allergy Verified 10/09/17 18:50 Review of Systems ROS Statement: Except As Marked, All Systems Reviewed And Found Negative Musculoskeletal: Positive for: Leg Pain (b/l) Physical Exam - Reviewed Nursing Documentation Reviewed: Yes Vital Signs Reviewed: Yes - Physical Exam Appears: Positive for: Non-toxic, No Acute Distress Head Exam: Positive for: ATRAUMATIC, NORMOCEPHALIC Skin: Positive for: Normal Color, Warm, Dry Eye Exam: Positive for: Normal appearance Neck: Positive for: Painless ROM Cardiovascular/Chest: Positive for: Regular Rate, Rhythm. Negative for: Murmur Respiratory: Positive for: Normal Breath Sounds. Negative for: Respiratory Distress Gastrointestinal/Abdominal: Positive for: Normal Exam, Soft. Negative for: Tenderness Back: Positive for: Normal Inspection. Negative for: L CVA Tenderness, R CVA Tenderness, Vertebral Tenderness Extremity: Negative for: Deformity, Swelling Neurologic/Psych: Positive for: Alert, Oriented - ECG O2 Sat by Pulse Oximetry: 99 (RA) Pulse Ox Interpretation: Normal - Physician Consult Information Time Consulting Physican Contacted: 16:00 Physician Contacted: Ty Pace Outcome Of Conversation: Recommends manual platelet count, if >20 can discharge patient home, if <20 transfuse 1 bag platelets. Medical Decision Making Medical Decision Making: Initial Impression: Abnormal labs Initial Plan: --Type and screen --EKG --CMP --CBC w/ differential --PTT --PT --Chest portable [RAD] --Reevaluation Scribe Attestation: Documented by Ankit Harrison, acting as a scribe for Georgette Coleman MD Provider Scribe Attestation: All medical record entries made by the Scribe were at my direction and personally dictated by me. I have reviewed the chart and agree that the record accurately reflects my personal performance of the history, physical exam, medical decision making, and the department course for this patient. I have also personally directed, reviewed, and agree with the discharge instructions and disposition. Disposition - Disposition Forms: [employer] (Kiswahili)
--- NOTE | 2017-10-16 16:57 | RAD ---
HISTORY: Abdominal pain COMPARISON: 09/28/2017 FINDINGS: LUNGS: No active pulmonary disease. PLEURA: No significant pleural effusion identified, no pneumothorax apparent. CARDIOVASCULAR: No radiographic findings to suggest acute or significant cardiovascular disease. OSSEOUS STRUCTURES: No significant abnormalities. VISUALIZED UPPER ABDOMEN: Normal. OTHER FINDINGS: None. IMPRESSION: No active disease. No significant interval change compared to the prior examination(s).
--- NOTE | 2017-10-16 17:24 | ED PDOC ---
- ECG O2 Sat by Pulse Oximetry: 99 (RA) Pulse Ox Interpretation: Normal Medical Decision Making Medical Decision Makin:[address] Coleman. Patient pending manual cell count of platelets. If less than 20 patient to be admitted for transfusion. If over 20 patient can be discharged. According to Dr. Coleman, case discussed with Dr. Pace. 1730p Per lab manual platelet count is 6000. Transfusion ordered. FP resident Dr Posada made aware for admission. DW pt findings. Risks/benefits of transfusion discussed and pt signed consent Scribe Attestation: Documented by Connor Quintana, acting as a scribe for Georgette Coleman MD. Provider Scribe Attestation: All medical record entries made by the Scribe were at my direction and personally dictated by me. I have reviewed the chart and agree that the record accurately reflects my personal performance of the history, physical exam, medical decision making, and the department course for this patient. I have also personally directed, reviewed, and agree with the discharge instructions and disposition. Disposition - Clinical Impression Clinical Impression: Thrombocytopenia, Myelodysplasia (myelodysplastic syndrome) - POA Present On Arrival: None - Disposition Disposition: Hospitalized as Observation Patient Disposition Time: 17:30 Condition: FAIR
--- NOTE | 2017-10-16 20:10 | CP.PCM.HP ---
History of Present Illness - History of Present Illness History of Present Illness: 77 yo M with pmhx of Myelodysplastic Syndrome, Pancytopenia, CKD, with recent hx of transfusion x 2 for pancytopenia presents to the ED due to recent labs. PLT 16. Pt presented to clinic and was instructed to present to the ER. Lab values reported to Dr. Pace. Pt reports b/l lower extremity pain along his thighs. He reports pain for the past 6 months and intermittent. He reports being able to ambulate on his own without assistive devices. Denies recent trauma. Denies CP/SOB/N/V. Reports increased R 1st toe pain, started about 3 months ago. Sharp in character. extremely tender to light touch or with socks. Pt was previously worked up for gout: xr neg and normal uric acid levels. PMD: [facility], Dr. Martinez. Hemo-Onc: Dr Pace PMH: NIDDM2, HLD (does not take any medications) Past Surg hx: L foot bunion Social hx: denies smoking now and in the past, denies alcohol use, denies drug use Family hx: mom w/ bone cancer, other family members w/ DM2 Allergies: NKDA Next of kin: Ottoniel Diaz (son) [phone] Code status: full code ED Course: VS: normal except BP: 163/69. PE: petechial rash b/l leg below the knee. SS 3/6 all areas, radiated to neck Labs: Pancytopenia CBC: 2.8>10.9<16 CMP not collected due to patient had labs early today, but not CMP. Rx CMP.waiting result Imaging: EKG: NSR HR: 72 Meds: Platelet transfusion as recommendation by Dr Pace. Present on Admission - Present on Admission Any Indicators Present on Admission: No History of DVT/PE: No History of Uncontrolled Diabetes: No Urinary Catheter: No Decubitus Ulcer Present: No Review of Systems - Review of Systems All systems: reviewed and no additional remarkable complaints except - Cardiovascular Cardiovascular: As Per HPI - Respiratory Respiratory: As Per HPI - Musculoskeletal Additional comments: b/l leg pain, right toe pain - Neurological Neurological: As Per HPI Past Patient History - Infectious Disease Hx of Infectious Diseases: None - Past Medical History & Family History Past Medical History?: Yes - Past Social History Alcohol: None Drugs: Denies - CARDIAC Hx Hypercholesterolemia: Yes Hx Hypertension: Yes - PULMONARY Hx Respiratory Disorders: No - NEUROLOGICAL Hx Neurological Disorder: No - HEENT Hx HEENT Problems: No - RENAL Hx Chronic Kidney Disease: No - ENDOCRINE/METABOLIC Hx Endocrine Disorders: Yes - HEMATOLOGICAL/ONCOLOGICAL Hx Anemia: Yes Hx Human Immunodeficiency Virus (HIV): No - INTEGUMENTARY Hx Dermatological Problems: No - MUSCULOSKELETAL/RHEUMATOLOGICAL Hx Musculoskeletal Disorders: Yes Hx Back Pain: Yes Hx Falls: No - GASTROINTESTINAL Hx Gastrointestinal Disorders: No - GENITOURINARY/GYNECOLOGICAL Hx Genitourinary Disorders: No - PSYCHIATRIC Hx Psychophysiologic Disorder: No Hx Substance Use: No - SURGICAL HISTORY Hx Surgeries: Yes - ANESTHESIA Hx Anesthesia: Yes Hx Anesthesia Reactions: No Hx Malignant Hyperthermia: No Meds Allergies/Adverse Reactions: Allergies Allergy/AdvReac Type Severity Reaction Status Date / Time No Known Allergies Allergy Verified 10/09/17 18:50 Physical Exam - Constitutional Appears: No Acute Distress - Head Exam Head Exam: ATRAUMATIC, NORMOCEPHALIC - Eye Exam Eye Exam: EOMI, Normal appearance, PERRL - ENT Exam ENT Exam: Mucous Membranes Moist - Neck Exam Neck exam: Positive for: Full Rom, Normal Inspection - Respiratory Exam Respiratory Exam: Clear to Auscultation Bilateral. absent: Rales, Rhonchi, Wheezes - Cardiovascular Exam Cardiovascular Exam: REGULAR RHYTHM, Systolic Murmur Additional comments: SS 3/6 all areas, radiated to neck - GI/Abdominal Exam GI & Abdominal Exam: Normal Bowel Sounds, Soft. absent: Guarding, Rebound, Tenderness - Extremities Exam Extremities exam: Positive for: normal capillary refill, pedal pulses present. Negative for: calf tenderness, full ROM, pedal edema Additional comments: petechial rash b/l leg below the knee - Back Exam Back exam: NORMAL INSPECTION - Neurological Exam Neurological exam: Alert, Oriented x3 - Psychiatric Exam Psychiatric exam: Normal Affect, Normal Mood - Skin Skin Exam: Petechiae Additional comments: petechia over face and b/l legs below knees. small hematoma 3cm para infraumbilical right side Results - Vital Signs Recent Vital Signs: Last Vital Signs Temp 97.3 F L 10/16/17 19:35 Pulse 78 10/16/17 19:35 Resp 19 10/16/17 19:35 BP 173/76 H 10/16/17 19:35 Pulse Ox 100 10/16/17 19:35 - Labs Labs: Laboratory Results - last 24 hr 10/16/17 18:50 Blood Type O POSITIVE Antibody Screen Negative BBK History Checked Patient has bt Assessment & Plan - Assessment and Plan (Free Text) Plan: 77 yo ,m,PMhx/o DM, recent diagnosis of Myelodysplastic Syndrome, Pancytopenia , CKD , admitted on observation for treatment of thrombocytopenia ( platelet transfusion ) Assessment/Plan 1) Pancytopenia Secondary to myelodysplatic syndrome CBC: 2.8>10.9<16 -severe thrombocytopenia. -Platelet Transfusion -Dr Pace consulted: suggest platelet transfusion 2 units -f/u CBC 2) Myelodysplastic syndrome recent diagnosed -Bone marrow biopsy done on 09/04/17 reported as no evidence of an acute leukemia or plasma cell Dyscrasia. As per report findings as suggestive of myelodysplasia. 3) CKD stage 3 - 10/10/17 GFR 32 BUN/Cr 55/2.0 -pending CMP results because patient had CBC prior to admission, but not CMP -renal US on 09/05/17 reported as multiple right renal cysts, left renal cyst. -f/u BMP -consider nephrology referral for f/u as outpatient 4) DM -Hgb a1c 6.6 -as per patient not on medication. controlled by diet 5) Systolic Murmur Pansystolic murmur 08/29 all areas radiated to neck. 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
--- NOTE | 2017-10-16 21:24 | CP.PCM.CON ---
History of Present Illness - History of Present Illness History of Present Illness: 77 year old male with a history of DM, MDS diagnosed 08/2017 admitted with pancytopenia and right toe pain. The patient is well known to me and was recently discharged from the hospital last week. He was found to have a low platelet and referred to the ER. He notes to worsening right big toe pain with discoloration at the tip. He denies abnormal bleeding but does bruise easily. Past medical history: DM, HL, MDS Past surgical history: Foot surgery Family history: Mother had bone cancer Social history: Denies tobacco, alcohol, and illicit drug use. Allergies: NKA Review of systems: All remaining review of systems including HEENT, cardiovascular, respiratory, gastrointestinal, genitourinary, musculoskeletal, dermatologic, neurologic, and psychiatric are negative unless mentioned in the HPI. Past Patient History - Infectious Disease Hx of Infectious Diseases: None - Past Medical History & Family History Past Medical History?: Yes - Past Social History Alcohol: None Drugs: Denies - CARDIAC Hx Hypercholesterolemia: Yes Hx Hypertension: Yes - PULMONARY Hx Respiratory Disorders: No - NEUROLOGICAL Hx Neurological Disorder: No - HEENT Hx HEENT Problems: No - RENAL Hx Chronic Kidney Disease: No - ENDOCRINE/METABOLIC Hx Endocrine Disorders: Yes - HEMATOLOGICAL/ONCOLOGICAL Hx Anemia: Yes Hx Human Immunodeficiency Virus (HIV): No - INTEGUMENTARY Hx Dermatological Problems: No - MUSCULOSKELETAL/RHEUMATOLOGICAL Hx Musculoskeletal Disorders: Yes Hx Back Pain: Yes Hx Falls: No - GASTROINTESTINAL Hx Gastrointestinal Disorders: No - GENITOURINARY/GYNECOLOGICAL Hx Genitourinary Disorders: No - PSYCHIATRIC Hx Psychophysiologic Disorder: No Hx Substance Use: No - SURGICAL HISTORY Hx Surgeries: Yes - ANESTHESIA Hx Anesthesia: Yes Hx Anesthesia Reactions: No Hx Malignant Hyperthermia: No Meds Allergies/Adverse Reactions: Allergies Allergy/AdvReac Type Severity Reaction Status Date / Time No Known Allergies Allergy Verified 10/09/17 18:50 - Medications Medications: Current Medications Acetaminophen (Tylenol 325mg Tab) 650 mg PO Q6 PRN PRN Reason: Pain, Mild (1-3) Acetaminophen (Tylenol 325mg Tab) 650 mg PO Q6 PRN PRN Reason: Fever >100.4 F Ferrous Sulfate (Feosol) 325 mg PO BID [place] Hydrochlorothiazide (Microzide) 12.5 mg PO DAILY [place] Morphine Sulfate (Morphine) 2 mg IVP Q4 PRN PRN Reason: Pain, severe (8-10) Last Admin: 10/16/17 20:33 Dose: 2 mg Ondansetron HCl (Zofran Inj) 4 mg IVP Q6 PRN PRN Reason: Nausea/Vomiting Oxycodone/Acetaminophen (Percocet 5/325 Mg Tab) 1 tab PO Q4 PRN PRN Reason: Pain, moderate (4-7) Stop: 10/19/17 20:06 Physical Exam - Head Exam Head Exam: ATRAUMATIC - Eye Exam Eye Exam: Normal appearance - ENT Exam ENT Exam: Mucous Membranes Dry - Respiratory Exam Respiratory Exam: NORMAL BREATHING PATTERN - Cardiovascular Exam Cardiovascular Exam: +S1, +S2 - GI/Abdominal Exam GI & Abdominal Exam: Normal Bowel Sounds - Extremities Exam Additional comments: right toe pain, bluish discoloration at the tip - Neurological Exam Neurological exam: Oriented x3 - Psychiatric Exam Psychiatric exam: Normal Affect, Normal Mood - Skin Skin Exam: Warm Results - Vital Signs Recent Vital Signs: Last Vital Signs Temp 97.3 F L 10/16/17 19:35 Pulse 78 10/16/17 19:35 Resp 19 10/16/17 19:35 BP 173/76 H 10/16/17 19:35 Pulse Ox 100 10/16/17 19:35 - Labs Labs: Laboratory Results - last 24 hr 10/16/17 18:50 Blood Type O POSITIVE Antibody Screen Negative BBK History Checked Patient has bt Assessment & Plan (1) Pancytopenia Assessment and Plan: secondary to MDS to receive 1 bag platelets; goal plt > 20,000 Status: Acute (2) Myelodysplasia (myelodysplastic syndrome) Assessment and Plan: transfusion support s/p Procrit last week outpatient hypomethylating agent Thank you for this interesting consult. Status: Acute
[2017-10-16] MEDS: Oxycodone/Acetaminophen 5/325 mg Tab PO PRN (23:46)
[2017-10-17 00:24] LABS: ALB/GLOB RATIO 0.8 (1.0-2.1); ALBUMIN 2.7 g/dL (3.5-5.0); CALCIUM 6.8 mg/dL (8.4-10.2)
[2017-10-17] MEDS: Oxycodone/Acetaminophen 5/325 mg Tab PO PRN (06:02)
[2017-10-17 07:36] LABS: ALB/GLOB RATIO 0.8 (1.0-2.1); ALBUMIN 3.2 g/dL (3.5-5.0); CALCIUM 8.4 mg/dL (8.4-10.2)
--- NOTE | 2017-10-17 07:57 | CP.PCM.PN ---
Subjective - Date & Time of Evaluation Date of Evaluation: 10/17/17 Time of Evaluation: 08:40 - Subjective Subjective: Pt seen and examined at bedside. Reports intermittent bilateral thigh pain along with R toe pain. Denies significant overnight events. Denies CP/SOB/N/V. Objective - Vital Signs/Intake and Output Vital Signs (last 24 hours): Temp Pulse Resp BP Pulse Ox 97.8 F 76 19 147/70 99 10/17/17 01:45 10/17/17 01:45 10/17/17 01:45 10/17/17 01:45 10/17/17 01:45 Intake and Output: 10/17/17 10/17/17 06:59 18:59 Output Total 400 Balance -400 - Medications Medications: Current Medications Acetaminophen (Tylenol 325mg Tab) 650 mg PO Q6 PRN PRN Reason: Pain, Mild (1-3) Acetaminophen (Tylenol 325mg Tab) 650 mg PO Q6 PRN PRN Reason: Fever >100.4 F Ferrous Sulfate (Feosol) 325 mg PO BID [place] Hydrochlorothiazide (Microzide) 12.5 mg PO DAILY [place] Morphine Sulfate (Morphine) 2 mg IVP Q4 PRN PRN Reason: Pain, severe (8-10) Last Admin: 10/16/17 20:33 Dose: 2 mg Ondansetron HCl (Zofran Inj) 4 mg IVP Q6 PRN PRN Reason: Nausea/Vomiting Oxycodone/Acetaminophen (Percocet 5/325 Mg Tab) 1 tab PO Q4 PRN PRN Reason: Pain, moderate (4-7) Stop: 10/19/17 20:06 Last Admin: 10/17/17 06:02 Dose: 1 tab - Labs Labs: 10/17/17 06:30 - Constitutional Appears: Well, No Acute Distress - Eye Exam Eye Exam: EOMI - Neck Exam Neck Exam: Full ROM - Respiratory Exam Respiratory Exam: Clear to Ausculation Bilateral, NORMAL BREATHING PATTERN. absent: Wheezes - Cardiovascular Exam Cardiovascular Exam: +S1, +S2, Murmur (systolic) - GI/Abdominal Exam GI & Abdominal Exam: Soft, Normal Bowel Sounds. absent: Tenderness - Extremities Exam Extremities Exam: absent: Calf Tenderness Additional comments: R first metatarsal digit with petechia of tip. Very tender to touch. however, sensation and motor grossly intact. - Neurological Exam Neurological Exam: Alert, Awake, CN II-XII Intact, Oriented x3 - Psychiatric Exam Psychiatric exam: Normal Affect, Normal Mood Assessment and Plan - Assessment and Plan (Free Text) Plan: 77 yo ,m,PMhx/o DM, recent diagnosis of Myelodysplastic Syndrome, Pancytopenia , CKD , admitted on observation for treatment of thrombocytopenia with platelet transfusion Assessment/Plan Pancytopenia -Secondary to myelodysplatic syndrome -CBC: 2.8>10.9<16 -severe thrombocytopenia. -Dr Pace consulted: recommendations appreciated: suggest platelet transfusion 1 unit; pending -f/u CBC, coag Myelodysplastic syndrome -recent diagnosed -Bone marrow biopsy done on 09/04/17 reported as no evidence of an acute leukemia or plasma cell Dyscrasia. As per report findings as suggestive of myelodysplasia. CKD stage 3 -10/17/17 GFR 28 BUN/Cr 52/2.3 -renal US on 09/05/17 reported as multiple right renal cysts, left renal cyst. -f/u BMP -consider nephrology referral for f/u as outpatient DM -Hgb a1c 6.6 -as per patient not on medication. controlled by diet BL lower extremity pain -involving 1st toe of R foot -Podiatry consulted: recommendations appreciated -LOGAN of bilateral lower extremity. Systolic Murmur -Pansystolic murmur 08/29 all areas radiated to neck. 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
--- NOTE | 2017-10-17 10:45 | CARD ---
APPROVED REPORT EKG Measurement Heart [id number] <Conclusion> Normal sinus rhythm Normal ECG
[2017-10-17 12:40] LABS: HEMOGLOBIN 10.1 g/dL (12.0-18.0); MEAN CELL VOLUME 86.7 fl (80.0-94.0); MEAN CORPUSCULAR HEMOGLOBIN 28.7 pg (27.0-31.0); MEAN CORPUSCULAR HGB CONC 33.1 g/dL (33.0-37.0); RBC 3.52 Mil/uL (4.40-5.90); RED CELL DISTRIBUTION WIDTH 16.9 % (11.5-14.5); WHITE BLOOD COUNT 2.3 K/uL (4.8-10.8)
[2017-10-17 12:48] LABS: INR 1.1 (0.9-1.2); PARTIAL THROMBOPLASTIN TIME 30.4 Seconds (25.6-37.1); PROTHROMBIN TIME 12.5 Seconds (9.8-13.1)
--- NOTE | 2017-10-17 13:30 | CP.PCM.CON ---
History of Present Illness - History of Present Illness History of Present Illness: 77 year old male with PMHx IDDM2, Myelodysplastic syndrome seen at bedside with his brother complaining of right foot first digit pain. Patient was seen last week while in house for the same problem. He denies any new or increased problems with the foot at this time but states that the toe has not improved since last week. He denies any trauma to the area and states that he has been walking normally which he admits is not what he was instructed to do during our last conversation. He states that warm compresses help to alleviate the pain. Patient denies any further pedal complaints at this time. He denies any recent N /V/F/C/CP/SOB/D/poserior calf pain when squeezed Review of Systems - Review of Systems Review of Systems: As per HPI Past Patient History - Infectious Disease Hx of Infectious Diseases: None - Past Medical History & Family History Past Medical History?: Yes - Past Social History Smoking Status: Current Some Days Smoker - CARDIAC Hx Cardiac Disorders: Yes Hx Hypercholesterolemia: Yes Hx Hypertension: Yes - PULMONARY Hx Respiratory Disorders: No - NEUROLOGICAL Hx Neurological Disorder: No - HEENT Hx HEENT Problems: No - RENAL Hx Chronic Kidney Disease: No - ENDOCRINE/METABOLIC Hx Endocrine Disorders: Yes Hx Diabetes Mellitus Type 2: Yes - HEMATOLOGICAL/ONCOLOGICAL Hx Blood Disorders: Yes Hx Anemia: Yes Hx Human Immunodeficiency Virus (HIV): No - INTEGUMENTARY Hx Dermatological Problems: No - MUSCULOSKELETAL/RHEUMATOLOGICAL Hx Musculoskeletal Disorders: Yes Hx Back Pain: Yes Hx Falls: No - GASTROINTESTINAL Hx Gastrointestinal Disorders: No - GENITOURINARY/GYNECOLOGICAL Hx Genitourinary Disorders: No - PSYCHIATRIC Hx Psychophysiologic Disorder: No Hx Substance Use: No - SURGICAL HISTORY Hx Surgeries: Yes Other/Comment: Right partial big toe amputation 12 years ago - ANESTHESIA Hx Anesthesia: Yes Hx Anesthesia Reactions: No Hx Malignant Hyperthermia: No Meds Allergies/Adverse Reactions: Allergies Allergy/AdvReac Type Severity Reaction Status Date / Time No Known Allergies Allergy Verified 10/09/17 18:50 - Medications Medications: Current Medications Acetaminophen (Tylenol 325mg Tab) 650 mg PO Q6 PRN PRN Reason: Pain, Mild (1-3) Acetaminophen (Tylenol 325mg Tab) 650 mg PO Q6 PRN PRN Reason: Fever >100.4 F Ferrous Sulfate (Feosol) 325 mg PO BID [place] Last Admin: 10/17/17 08:29 Dose: 325 mg Hydrochlorothiazide (Microzide) 12.5 mg PO DAILY [facility] Last Admin: 10/17/17 08:28 Dose: 12.5 mg Morphine Sulfate (Morphine) 2 mg IVP Q4 PRN PRN Reason: Pain, severe (8-10) Last Admin: 10/16/17 20:33 Dose: 2 mg Ondansetron HCl (Zofran Inj) 4 mg IVP Q6 PRN PRN Reason: Nausea/Vomiting Oxycodone/Acetaminophen (Percocet 5/325 Mg Tab) 1 tab PO Q4 PRN PRN Reason: Pain, moderate (4-7) Stop: 10/19/17 20:06 Last Admin: 10/17/17 06:02 Dose: 1 tab Physical Exam - Constitutional Appears: Well, Non-toxic, No Acute Distress - Extremities Exam Additional comments: RLE focused exam: Vasc: DP/PT pulses faintly palpable 1/4 b/l. Skin temperature warm to warm from proximal to distal. CFT < 3 seconds to all digits. No edema noted b/l Neuro: Epicritic and protective sensation grossly intact b/l. Skin temperature at distal right hallux where deep tissue injury is present is the same temperature as the distal aspect of the left hallux. There is minimal indication that the change is color is due to vascular insufficiency at this time. Derm: Dark, ecchymotic soft tissue changes appreciated at distal tuft of right hallux consistent with deep tissue injury, increased in darkness since last examination. Diffuse hyperpigmentation most likely secondary to hemosiderin deposits noted to b/l feet. Otherwise no open lesions, wounds, maceration, xerosis, abnormal pigmentations or abnormal growths noted MSK: Severe POP to distal tuft of right hallux. Bony prominence noted to dorsomedial aspect of patient's R first MTPJ with limited ROM at that joint - Neurological Exam Neurological exam: Alert, Oriented x3 - Psychiatric Exam Psychiatric exam: Normal Affect, Normal Mood Results - Vital Signs Recent Vital Signs: Last Vital Signs Temp 97.5 F L 10/17/17 08:21 Pulse 64 10/17/17 08:21 Resp 18 10/17/17 08:21 BP 147/67 10/17/17 08:21 Pulse Ox 99 10/17/17 08:21 - Labs Result Diagrams: 10/17/17 11:54 10/17/17 06:30 Labs: Laboratory Results - last 24 hr 10/16/17 10/16/17 10/16/17 18:50 21:27 23:00 WBC RBC Hgb Hct MCV MCH MCHC RDW Plt Count PT INR APTT Sodium 142 Potassium 4.0 Chloride 109 H Carbon Dioxide 18 L Anion Gap 19 BUN 43 H Creatinine 1.9 H Est GFR ( Amer) 42 Est GFR (Non-Af Amer) 34 POC Glucose (mg/dL) 103 Random Glucose 164 H Calcium 6.8 L Total Bilirubin 0.3 AST 15 L D ALT 35 Alkaline Phosphatase 74 Total Protein 6.1 L Albumin 2.7 L Globulin 3.4 Albumin/Globulin Ratio 0.8 L Blood Type O POSITIVE Antibody Screen Negative BBK History Checked Patient has bt 10/17/17 10/17/17 10/17/17 05:27 06:30 11:01 WBC RBC Hgb Hct MCV MCH MCHC RDW Plt Count PT INR APTT Sodium 139 Potassium 4.4 Chloride 104 Carbon Dioxide 24 Anion Gap 15 BUN 52 H Creatinine 2.3 H Est GFR ( Amer) 33 Est GFR (Non-Af Amer) 28 POC Glucose (mg/dL) 102 119 H Random Glucose 90 Calcium 8.4 Total Bilirubin 0.4 AST 22 ALT 35 Alkaline Phosphatase 88 Total Protein 7.0 Albumin 3.2 L Globulin 3.8 Albumin/Globulin Ratio 0.8 L Blood Type Antibody Screen BBK History Checked 10/17/17 10/17/17 11:54 11:54 WBC 2.3 L RBC 3.52 L Hgb 10.1 L Hct 30.5 L MCV 86.7 MCH 28.7 MCHC 33.1 RDW 16.9 H Plt Count 56 L D PT 12.5 INR 1.1 APTT 30.4 Sodium Potassium Chloride Carbon Dioxide Anion Gap BUN Creatinine Est GFR ( Amer) Est GFR (Non-Af Amer) POC Glucose (mg/dL) Random Glucose Calcium Total Bilirubin AST ALT Alkaline Phosphatase Total Protein Albumin Globulin Albumin/Globulin Ratio Blood Type Antibody Screen BBK History Checked Assessment & Plan - Assessment and Plan (Free Text) Assessment: 77 year old male seen at bedside for deep tissue injury of right distal hallux most likely secondary to stage 4 hallux rigidus at the MPJ joint causing inability to dorsiflex the hallux through propulsion and increasing weight bearing pressures to the distal aspect of the hallux Plan: Patient seen and evaluated Charts, labs, vitals reviewed Plan discussed with attending Dr. Fletcher Previous xray of right foot evaluated with no signs of bony abnormalities or trauma present to distal phalanx of right hallux. Stage 4 hallux rigidus arthritic changes noted at first MTPJ Warm compresses ordered PT ordered to gait train patient in order to avoid excessive ground reactive forces on his distal hallux Patient again informed on the probable cause of this etiology and advised to avoid excessive weight bearing to that area of his foot Patient also informed that is usually takes several weeks for these types of injuries to decrease in pain and normalize in color Patient demonstrated good understanding No dressing applied at this time No plan for surgical intervention at this time Podiatry will sign off. Please reconsult in the future as needed - Date & Time Date: 10/17/17 Time: 13:36
--- NOTE | 2017-10-17 19:51 | CP.PCM.PN ---
Subjective - Date & Time of Evaluation Date of Evaluation: 10/17/17 Time of Evaluation: 18:00 - Subjective Subjective: Feeling better, still has right big toe pain. Objective - Vital Signs/Intake and Output Vital Signs (last 24 hours): Temp Pulse Resp BP Pulse Ox 98.2 F 72 18 151/66 H 98 10/17/17 16:13 10/17/17 16:13 10/17/17 16:13 10/17/17 16:13 10/17/17 16:13 - Medications Medications: Current Medications Acetaminophen (Tylenol 325mg Tab) 650 mg PO Q6 PRN PRN Reason: Pain, Mild (1-3) Acetaminophen (Tylenol 325mg Tab) 650 mg PO Q6 PRN PRN Reason: Fever >100.4 F Ferrous Sulfate (Feosol) 325 mg PO BID [facility] Last Admin: 10/17/17 16:20 Dose: 325 mg Hydrochlorothiazide (Microzide) 12.5 mg PO DAILY [facility] Last Admin: 10/17/17 08:28 Dose: 12.5 mg Morphine Sulfate (Morphine) 2 mg IVP Q4 PRN PRN Reason: Pain, severe (8-10) Last Admin: 10/16/17 20:33 Dose: 2 mg Ondansetron HCl (Zofran Inj) 4 mg IVP Q6 PRN PRN Reason: Nausea/Vomiting Oxycodone/Acetaminophen (Percocet 5/325 Mg Tab) 1 tab PO Q4 PRN PRN Reason: Pain, moderate (4-7) Stop: 10/19/17 20:06 Last Admin: 10/17/17 06:02 Dose: 1 tab - Labs Labs: 10/17/17 11:54 10/17/17 06:30 PT 12.5 Seconds (9.8-13.1) 10/17/17 11:54 INR 1.1 (0.9-1.2) 10/17/17 11:54 APTT 30.4 Seconds (25.6-37.1) 10/17/17 11:54 - Head Exam Head Exam: ATRAUMATIC - Eye Exam Eye Exam: Normal appearance - ENT Exam ENT Exam: Mucous Membranes Dry - Respiratory Exam Respiratory Exam: NORMAL BREATHING PATTERN - Cardiovascular Exam Cardiovascular Exam: +S1, +S2 - GI/Abdominal Exam GI & Abdominal Exam: Normal Bowel Sounds Assessment and Plan (1) Pancytopenia Assessment & Plan: secondary to MDS transfusion support Status: Acute (2) Myelodysplasia (myelodysplastic syndrome) Assessment & Plan: outpatient treatment Status: Acute
[2017-10-18 06:33] LABS: HEMOGLOBIN 10.4 g/dL (12.0-18.0); MEAN CORPUSCULAR HEMOGLOBIN 28.7 pg (27.0-31.0); RBC 3.64 Mil/uL (4.40-5.90); RED CELL DISTRIBUTION WIDTH 16.6 % (11.5-14.5); WHITE BLOOD COUNT 2.8 K/uL (4.8-10.8)
[2017-10-18 06:45] LABS: CALCIUM 8.6 mg/dL (8.4-10.2)
--- NOTE | 2017-10-18 10:17 | CP.PCM.DIS ---
Provider - Provider Date of Admission: 10/16/17 17:34 Attending physician: Karina Luevano MD Time Spent in preparation of Discharge (in minutes): 20 Diagnosis - Discharge Diagnosis (1) Myelodysplasia (myelodysplastic syndrome) Status: Acute (2) Thrombocytopenia Status: Acute Hospital Course - Lab Results Lab Results: Most Recent Lab Values WBC 2.8 K/uL (4.8-10.8) L 10/18/17 05:35 RBC 3.64 Mil/uL (4.40-5.90) L 10/18/17 05:35 Hgb 10.4 g/dL (12.0-18.0) L 10/18/17 05:35 Hct 31.6 % (35.0-51.0) L 10/18/17 05:35 MCV 87.0 fl (80.0-94.0) 10/18/17 05:35 MCH 28.7 pg (27.0-31.0) 10/18/17 05:35 MCHC 33.0 g/dL (33.0-37.0) 10/18/17 05:35 RDW 16.6 % (11.5-14.5) H 10/18/17 05:35 Plt Count 58 K/uL (130-400) L 10/18/17 05:35 PT 12.5 Seconds (9.8-13.1) 10/17/17 11:54 INR 1.1 (0.9-1.2) 10/17/17 11:54 APTT 30.4 Seconds (25.6-37.1) 10/17/17 11:54 Sodium 138 mmol/l (132-148) 10/18/17 05:35 Potassium 4.2 MMOL/L (3.6-5.0) 10/18/17 05:35 Chloride 101 mmol/L (98-107) 10/18/17 05:35 Carbon Dioxide 23 mmol/L (22-30) 10/18/17 05:35 Anion Gap 18 (10-20) 10/18/17 05:35 BUN 49 mg/dl (9-20) H 10/18/17 05:35 Creatinine 2.1 mg/dl (0.8-1.5) H 10/18/17 05:35 Est GFR ( Amer) 37 10/18/17 05:35 Est GFR (Non-Af Amer) 31 10/18/17 05:35 POC Glucose (mg/dL) 94 mg/dL (65-110) 10/18/17 05:22 Random Glucose 106 mg/dL (75-110) 10/18/17 05:35 Calcium 8.6 mg/dL (8.4-10.2) 10/18/17 05:35 Total Bilirubin 0.4 mg/dl (0.2-1.3) 10/17/17 06:30 AST 22 U/L (17-59) 10/17/17 06:30 ALT 35 U/L (21-72) 10/17/17 06:30 Alkaline Phosphatase 88 U/L (38-126) 10/17/17 06:30 Total Protein 7.0 G/DL (6.3-8.2) 10/17/17 06:30 Albumin 3.2 g/dL (3.5-5.0) L 10/17/17 06:30 Globulin 3.8 gm/dL (2.2-3.9) 10/17/17 06:30 Albumin/Globulin Ratio 0.8 (1.0-2.1) L 10/17/17 06:30 Blood Type O POSITIVE 10/16/17 18:50 Antibody Screen Negative 10/16/17 18:50 BBK History Checked Patient has bt 10/16/17 18:50 - Hospital Course Hospital Course: 77 yo M PMhx/o DM, recent diagnosis of Myelodysplastic Syndrome, Pancytopenia, CKD , admitted on observation for treatment of thrombocytopenia with platelet transfusion: PLT: 58 s/p transfusion x 1. Pt seen and evaluated by podiatry: recommended warm compress and PT for BL lower extremity pain. Pt to f/u with Dr. pace for MDS, Nephro for CKD Stage 3, Cardio for systolic murmur. Discharge Exam - Head Exam Head Exam: ATRAUMATIC - Eye Exam Eye Exam: EOMI - Respiratory Exam Respiratory Exam: Clear to PA & Lateral, NORMAL BREATHING PATTERN. absent: Wheezes - Cardiovascular Exam Cardiovascular Exam: +S1, +S2 - GI/Abdominal Exam GI & Abdominal Exam: Normal Bowel Sounds, Soft. absent: Tenderness - Neurological Exam Neurological exam: Alert, CN II-XII Intact, Oriented x3 - Psychiatric Exam Psychiatric exam: Normal Affect, Normal Mood Discharge Plan - Discharge Medications Prescriptions: Acetaminophen [Tylenol 325mg tab] 325 mg PO Q6 PRN #30 tab PRN Reason: Pain, Mild (1-3) Ferrous Sulfate [Feosol] 325 mg PO BID #60 tab hydroCHLOROthiazide [Microzide] 12.5 mg PO DAILY #30 cap - Follow Up Plan Condition: FAIR Disposition: HOME/ ROUTINE Instructions: Immune Thrombocytopenia (ITP) (DC), Bleeding Precautions, Platelet Count Test, Myelodysplastic Syndromes (DC), Myelodysplastic Syndromes ( GEN) Additional Instructions: hacer delma con tyson primario dentro 1 semana Referrals: [facility] [place] [Outside] Ty Pace MD [Staff Provider] -
[2017-10-18 15:47] VITALS: BP 158/72; PULSE 75; RESP 18; TEMP 98.2; O2SAT 98
--- NOTE | 2017-10-18 21:29 | CP.PCM.PN ---
Subjective - Date & Time of Evaluation Date of Evaluation: 10/18/17 Time of Evaluation: 10:05 - Subjective Subjective: Feeling better, still with some toe pain. Objective - Vital Signs/Intake and Output Vital Signs (last 24 hours): Temp Pulse Resp BP Pulse Ox 98.2 F 75 18 158/72 H 98 10/18/17 15:47 10/18/17 15:47 10/18/17 15:47 10/18/17 15:47 10/18/17 15:47 - Labs Labs: 10/18/17 05:35 10/18/17 05:35 PT 12.5 Seconds (9.8-13.1) 10/17/17 11:54 INR 1.1 (0.9-1.2) 10/17/17 11:54 APTT 30.4 Seconds (25.6-37.1) 10/17/17 11:54 - Head Exam Head Exam: ATRAUMATIC - Eye Exam Eye Exam: Normal appearance - ENT Exam ENT Exam: Mucous Membranes Dry - Respiratory Exam Respiratory Exam: NORMAL BREATHING PATTERN - Cardiovascular Exam Cardiovascular Exam: +S1, +S2 - GI/Abdominal Exam GI & Abdominal Exam: Normal Bowel Sounds Assessment and Plan (1) Pancytopenia Assessment & Plan: secondary to MDS transfusion support Status: Acute (2) Myelodysplasia (myelodysplastic syndrome) Assessment & Plan: outpatient treatment Status: Acute
== END 2017-10-18 17:20 | disposition home or self-care (01) ==
LOC: H.ER 15:28 → H.ERHOLD 17:34 → H.MEDSURG1 19:19
PROVIDERS: ADMIT Family Medicine Geriatric Medicine; ATTEND Family Medicine Geriatric Medicine
DX: D61.818 Other pancytopenia (principal); D46.9 Myelodysplastic syndrome, unspecified; F17.210 Nicotine dependence, cigarettes, uncomplicated; Z89.411 Acquired absence of right great toe; N18.3 Chronic kidney disease, stage 3 (moderate); I12.9 Hypertensive chronic kidney disease with stage 1 through stage 4 chronic kidney disease, or unspecified chronic kidney disease; E11.22 Type 2 diabetes mellitus with diabetic chronic kidney disease; E78.5 Hyperlipidemia, unspecified; N28.1 Cyst of kidney, acquired; Z79.4 Long term (current) use of insulin; Z83.3 Family history of diabetes mellitus; Z80.8 Family history of malignant neoplasm of other organs or systems; R01.1 Cardiac murmur, unspecified
CPT/HCPCS: 36415; 36430; 71045; 80048; 80053; 82948; 85027; 85610; 85730; 86850; 86900; 93005; 97116; 97161; 97530; 99282; G0378; G8978; G8979; G8980; J2270; P9053

== ENCOUNTER 2017-10-24 21:25 | Observation (INO) | payer MEDICAID ==
[2017-10-24] MEDS ORDERED: Sodium Chloride 0.9% 500 ML IV STA (21:48)
--- NOTE | 2017-10-24 22:12 | ED PDOC ---
Lower Extremity Pain/Injury Time Seen by Provider: 10/24/17 21:33 Chief Complaint (Nursing): Abnormal Labs Chief Complaint (Provider): leg pain History Per: Patient History/Exam Limitations: no limitations Onset/Duration Of Symptoms: Hrs (x1 [employer]) Current Symptoms Are (Timing): Still Present Additional Complaint(s): 77 year old male with medical history of thrombocytopenia, hyperlipidemia and diabetes, presents to the emergency department with a complaint of bilateral leg pain with increase in discoloration and lesions to his great right toe, onset since 1999 ton. Patient states he has had similar episodes in the past when his platelets are low due to his thrombocytopenia and Myelodysplastic syndrome. He also reports a left-sided tongue lesion that intermittently bleeds. Patient's last admission on 10/16/17 included a blood transfusion for a 16-platelet count. PMD: Chandrakant Martinez MD Vj/Onc: Ty Pace MD Past Medical History Reviewed: Historical Data, Nursing Documentation, Vital Signs Vital Signs: Last Vital Signs Temp 98.2 F 10/24/17 21:26 Pulse 101 H 10/24/17 21:26 Resp 20 10/24/17 21:26 BP 148/82 10/24/17 21:26 Pulse Ox 98 10/24/17 21:26 - Medical History PMH: Anemia, Diabetes, HTN, Hypercholesterolemia Denies: HIV, Chronic Kidney Disease - Family History Family History: States: Unknown Family Hx - Social History Current smoker - smoking cessation education provided: Yes Alcohol: None Drugs: Denies - Home Medications Home Medications: Ambulatory Orders Medication Instructions Recorded Acetaminophen [Tylenol 325mg tab] 325 mg PO Q6 PRN #30 tab 10/18/17 Ferrous Sulfate [Feosol] 325 mg PO BID #60 tab 10/18/17 hydroCHLOROthiazide [Microzide] 12.5 mg PO DAILY #30 cap 10/18/17 - Allergies Allergies/Adverse Reactions: Allergies Allergy/AdvReac Type Severity Reaction Status Date / Time No Known Allergies Allergy Verified 10/09/17 18:50 Review of Systems ROS Statement: Except As Marked, All Systems Reviewed And Found Negative Constitutional: Positive for: Chills, Weakness, Malaise (fatigue) ENT: Positive for: Other (left-sided tongue lesion with bleed) Musculoskeletal: Positive for: Leg Pain (bilateral with chronic discoloration and lesions to right great toe) Physical Exam - Reviewed Nursing Documentation Reviewed: Yes Vital Signs Reviewed: Yes - Physical Exam Appears: Positive for: In Acute Distress Head Exam: Positive for: ATRAUMATIC (with purple pinpoint papules on face) Skin: Negative for: Normal Color ENT: Positive for: Other (small left lateral tongue hemastatic hematoma ) Cardiovascular/Chest: Positive for: Tachycardia (regular rhythm) Extremity: Positive for: Other (reticular purple rash to bilateral legs; ecchymotic lesions to right distal great toe; ecchymosis to bilateral arms) Neurologic/Psych: Positive for: Mood/Affect (tired) - ECG O2 Sat by Pulse Oximetry: 98 (RA) Pulse Ox Interpretation: Normal Medical Decision Making Medical Decision Making: Initial Impression: Leg pain Differential Diagnosis: Acute and chronic pain; dehydration; pancytopenia; dehydration; electrolyte abnormality Initial Plan: * Type and screen * BNP * CMP * Magnesium * Phosphorous * Urine dipstick * CBC * PTT * PT * Morphine 2mg IVO * NS 500ml IV per 500mls/hr * Blood culture Scribe Attestation: Documented by Umu Kern, acting as a scribe for Bee Dove MD. Provider Scribe Attestation: All medical record entries made by the Scribe were at my direction and personally dictated by me. I have reviewed the chart and agree that the record accurately reflects my personal performance of the history, physical exam, medical decision making, and the department course for this patient. I have also personally directed, reviewed, and agree with the discharge instructions and disposition. Disposition - Disposition Forms: [email or web address] (Yakut)
[2017-10-24 22:25] LABS: INR 1.1 (0.9-1.2); PARTIAL THROMBOPLASTIN TIME 28.7 Seconds (25.6-37.1); PROTHROMBIN TIME 12.1 Seconds (9.8-13.1)
[2017-10-24 22:30] LABS: BASO % 0.4 % (0.0-2.0); EOS % 0.7 % (0.0-4.0); HEMOGLOBIN 9.4 g/dL (12.0-18.0); LYMPH # 1.5 K/uL (1.0-4.3); LYMPH % 40.4 % (20.0-40.0); MEAN CELL VOLUME 85.7 fl (80.0-94.0); MEAN CORPUSCULAR HEMOGLOBIN 29.4 pg (27.0-31.0); MEAN CORPUSCULAR HGB CONC 34.3 g/dL (33.0-37.0); MEAN PLATELET VOLUME 8.7 fl (7.2-11.7); MONO # 0.8 K/uL (0.0-0.8); NEUT # 1.4 K/uL (1.8-7.0); NEUT % 37.5 % (50.0-75.0); NRBC % 0.3 % (0.0-0.0); RBC 3.18 Mil/uL (4.40-5.90); RED CELL DISTRIBUTION WIDTH 16.9 % (11.5-14.5); WHITE BLOOD COUNT 3.6 K/uL (4.8-10.8)
[2017-10-24 22:31] LABS: ALB/GLOB RATIO 0.9 (1.0-2.1); ALBUMIN 3.5 g/dL (3.5-5.0); CALCIUM 8.7 mg/dL (8.4-10.2)
[2017-10-24 22:33] LABS: PLATELET COUNT 17 K/uL (130-400)
--- NOTE | 2017-10-24 23:28 | CP.PCM.HP ---
History of Present Illness - History of Present Illness History of Present Illness: Hx taken from patient and medical records Full code PMD: [facility] Hem-onc: Dr Pace 77 y/o M, with pMHx of MDS, pancitopenia, DM2, HTN presents to [facility] c/o LE B/L cramps. As per patient he has had this type of cramps in the past but today they "were really bad and more frequent". The patient also c/o R/1st toe pain, chronic, and persistent blueish discoloration. Patient is poorly controlled with pain meds. Blood work done at ED showed Plt =17 and patient was decided to be admitted for plt transfusion and further care. He was recently DC from [facility] 1 week ago with similar complains and was evaluated by Hem-onc and Podiatry. The patient states that his DM is controlled with diet and that he didnt fill the HCTZ that was prescribed for elevated BP when he was DC from [facility] 1 week ago. Admits easy bruising and had 1 small episode of gum bleeding this morning while brushing teeth. The patient has no other complains. He denies changes in urination or stools. Denies CP, SOB, palpitations. His functional ability has decreased for the past few months as well as his mobility but he is still able to ambulate. ED Course: EKG: Normal sinus rhythm CXR: NO acute disease(awaiting radiology report) Plt=17, Hgb=9.4, BUN/Creat= 55/1.9 ,Mg 1.5, NA and K WNL OknOam=452(Barely elevated) Morphine 2 mg once IV NS 500ml Platelet transfusion ordered(Consent obtained) Past Surg hx: L foot bunion Social hx: Denies x3 Family hx: Mother w/ bone cancer, other family members w/ DM2 Allergies: NKDA Next of kin: Ottoniel Diaz (son) [phone] Present on Admission - Present on Admission Any Indicators Present on Admission: No Review of Systems - Review of Systems All systems: reviewed and no additional remarkable complaints except (those described on HPI) Past Patient History - Infectious Disease Hx of Infectious Diseases: None - Past Medical History & Family History Past Medical History?: Yes - Past Social History Smoking Status: Never Smoked Alcohol: None Drugs: Denies - CARDIAC Hx Cardiac Disorders: Yes (HTN, hyperlipidemia) Hx Hypertension: Yes - PULMONARY Hx Respiratory Disorders: No - NEUROLOGICAL Hx Neurological Disorder: No - HEENT Hx HEENT Problems: No - RENAL Hx Chronic Kidney Disease: Yes Hx Kidney Stones: Yes - ENDOCRINE/METABOLIC Hx Endocrine Disorders: Yes Hx Diabetes Mellitus Type 2: Yes - HEMATOLOGICAL/ONCOLOGICAL Hx Blood Disorders: Yes (thrombocytopenia) - INTEGUMENTARY Hx Dermatological Problems: No - MUSCULOSKELETAL/RHEUMATOLOGICAL Hx Musculoskeletal Disorders: No - GASTROINTESTINAL Hx Gastrointestinal Disorders: No - GENITOURINARY/GYNECOLOGICAL Hx Genitourinary Disorders: No - PSYCHIATRIC Hx Psychophysiologic Disorder: No - SURGICAL HISTORY Hx Surgeries: Yes Other/Comment: Bunion - ANESTHESIA Hx Anesthesia: Yes Hx Anesthesia Reactions: No Hx Malignant Hyperthermia: No Meds Allergies/Adverse Reactions: Allergies Allergy/AdvReac Type Severity Reaction Status Date / Time No Known Allergies Allergy Verified 10/09/17 18:50 Physical Exam - Constitutional Appears: Non-toxic, Chronically Ill - Head Exam Head Exam: ATRAUMATIC, NORMAL INSPECTION - Eye Exam Eye Exam: PERRL - ENT Exam ENT Exam: Mucous Membranes Moist Additional comments: Dry blood, scant, lips - Neck Exam Neck exam: Positive for: Full Rom, Normal Inspection. Negative for: Lymphadenopathy - Respiratory Exam Respiratory Exam: Clear to Auscultation Bilateral, NORMAL BREATHING PATTERN. absent: Decreased Breath Sounds, Rales, Rhonchi, Wheezes - Cardiovascular Exam Cardiovascular Exam: REGULAR RHYTHM, Systolic Murmur. absent: Gallop - GI/Abdominal Exam GI & Abdominal Exam: Normal Bowel Sounds, Soft. absent: Distended, Mass, Rigid , Tenderness - Extremities Exam Extremities exam: Positive for: normal capillary refill, tenderness (R/1st toe) . Negative for: calf tenderness, normal inspection (B/L Below knee diffuse petechiae present. R/1st toe distal ecchymosis), pedal edema - Neurological Exam Neurological exam: Alert, Oriented x3 - Psychiatric Exam Psychiatric exam: Normal Affect, Normal Mood - Skin Skin Exam: Petechiae (B/L LE, Face), Warm Results - Vital Signs Recent Vital Signs: Last Vital Signs Temp 98.2 F 10/24/17 23:00 Pulse 101 H 10/24/17 23:00 Resp 20 10/24/17 23:00 BP 148/82 10/24/17 23:00 Pulse Ox 98 10/24/17 22:28 - Labs Result Diagrams: 10/24/17 22:00 10/24/17 22:00 Labs: Laboratory Results - last 24 hr 10/24/17 10/24/17 10/24/17 22:00 22:00 22:00 WBC 3.6 L RBC 3.18 L Hgb 9.4 L Hct 27.2 L MCV 85.7 MCH 29.4 MCHC 34.3 RDW 16.9 H Plt Count 17 L* D MPV 8.7 Neut % (Auto) 37.5 L Lymph % (Auto) 40.4 H [place] % (Auto) 21.0 H Eos % (Auto) 0.7 Baso % (Auto) 0.4 Neut # (Auto) 1.4 L Lymph # (Auto) 1.5 [place] # (Auto) 0.8 Eos # (Auto) 0.0 Baso # (Auto) 0.0 PT 12.1 INR 1.1 APTT 28.7 Sodium 135 Potassium 4.4 Chloride 100 Carbon Dioxide 22 Anion Gap 17 BUN 55 H Creatinine 1.9 H Est GFR ( Amer) 42 Est GFR (Non-Af Amer) 34 Random Glucose 166 H Calcium 8.7 Phosphorus 3.4 Magnesium 1.5 L Total Bilirubin 0.5 AST 33 ALT 43 Alkaline Phosphatase 102 NT-Pro-B Natriuret Pep 907 H Total Protein 7.6 Albumin 3.5 Globulin 4.1 H Albumin/Globulin Ratio 0.9 L Assessment & Plan - Assessment and Plan (Free Text) Assessment: 77 y/o, M, with PMhx of Myelodysplastic Syndrome, Pancytopenia, CKD, HTN and DM admitted for thrombocytopenia -Pancytopenia Acute on chronic Secondary to myelodysplatic syndrome Platelets =17.+ petechiae and ecchymosis Hgb 9.4 Platelets tranfusion ordered Hem-Onc consult Dr Pace C/W Ferrous Sulfate PO -Myelodysplastic syndrome Chronic Bone marrow biopsy done on 09/04/17 reported findings suggestive of myelodysplasia. F/U hem/onc recs As per patient he is awaiting for insurance availability to start Chemotherapy -CKD stage 3 Baseline GFR 32 Hx of complex R/Kidney cyst on previous imaging and recommended MRI of the kidney as outpatient when patient was DC from hosp last time. Consider Nephro consult -HTN Chronic, uncontrolled, St II Systolic. 176/74 Patient was DC on HCTZ 12.5 mg daily from hosp but was not taking it at home Will restart low dose HCTZ for now(might not work well since GFR 32) Increase if needed, however patient pancitopenic, recommend not aggressive BP drop at this time. -DM type 2 Last Hgb a1c 6.6 Controlled by diet F/U BMP AM. Correlate with fasting BS levels since patient has CKD ISS low dose for now. Monitor -Hypomagnesemia Mild Mg =1.5 Mg Oxide 400 mg once F/U BMP AM -DVT Prophylaxis SCD for now
[2017-10-24] MEDS ORDERED: Magnesium Oxide 400 mg Tab UD PO STA (23:51)
[2017-10-25 00:17] LABS: LYMPHOCYTE 55 % (20-50); MONOCYTE 15 % (0-10); NEUTROPHIL 30 % (42-75); TOTAL CELLS COUNTED 100
[2017-10-25 00:18] LABS: ANISOCYTOSIS SLIGHT; OVALOCYTES SLIGHT; PLATELET ESTIMATE MARKEDLY DECREASED (NORMAL); SCHISTOCYTES SLIGHT
[2017-10-25 06:36] LABS: CALCIUM 8.5 mg/dL (8.4-10.2)
[2017-10-25 06:41] LABS: URINE BILIRUBIN NEGATIVE (NEGATIVE); URINE BLOOD MODERATE (NEGATIVE); URINE CLARITY CLEAR (Clear); URINE COLOR STRAW (YELLOW); URINE GLUCOSE (UA) NEG (Normal); URINE LEUKOCYTE ESTERASE NEG Leu/uL (Negative); URINE PROTEIN 30 mg/dL (NEGATIVE); URINE UROBILINOGEN 0.2-1.0 mg/dL (0.2-1.0)
--- NOTE | 2017-10-25 07:36 | CP.PCM.PN ---
Subjective - Date & Time of Evaluation Date of Evaluation: 10/25/17 Time of Evaluation: 07:35 - Subjective Subjective: 77 y/o M evaluated and examined by bedside. Pt complains of b/l leg cramping pain and leg heaviness, 8/10 intensity, constant and improved with given Morphine for 1-2 hours. Pt explains having intolerable b/l leg pain after walking 2-3 blocks, have to stop and wait for several minutes before being able to continue walking. Pt does not like walking long distances as he is affraid of this pain. Pt uses comfortable shoes. Pt also c/o R 1st toe pain that is 8/10 , constant and not relieved with given morphine. Pt is tolerating PO, ambulating at a slow pace around room. --Pt reports he is supposed to receive insurance card on the mail any moment in order to begin chemotherapy. Objective - Vital Signs/Intake and Output Vital Signs (last 24 hours): Temp Pulse Resp BP Pulse Ox 98.3 F 75 14 151/71 H 98 10/25/17 07:02 10/25/17 07:02 10/25/17 07:02 10/25/17 07:02 10/25/17 07:02 - Medications Medications: Current Medications Acetaminophen (Tylenol 325mg Tab) 325 mg PO Q6 PRN PRN Reason: Pain, Mild (1-3) Ferrous Sulfate (Feosol) 325 mg PO BID [place] Hydrochlorothiazide (Microzide) 12.5 mg PO DAILY [place] Morphine Sulfate (Morphine) 1 mg IVP Q6 PRN PRN Reason: Pain, moderate (4-7) Last Admin: 10/25/17 06:11 Dose: 1 mg - Labs Labs: 10/24/17 22:00 10/25/17 05:40 PT 12.1 Seconds (9.8-13.1) 10/24/17 22:00 INR 1.1 (0.9-1.2) 10/24/17 22:00 APTT 28.7 Seconds (25.6-37.1) 10/24/17 22:00 - Constitutional Appears: Well, No Acute Distress - Head Exam Head Exam: ATRAUMATIC - Eye Exam Eye Exam: EOMI - ENT Exam ENT Exam: Mucous Membranes Dry - Neck Exam Neck Exam: Full ROM - Respiratory Exam Respiratory Exam: Clear to Ausculation Bilateral, NORMAL BREATHING PATTERN - Cardiovascular Exam Cardiovascular Exam: +S1, +S2 - GI/Abdominal Exam GI & Abdominal Exam: Soft, Normal Bowel Sounds. absent: Tenderness - Extremities Exam Extremities Exam: Full ROM. absent: Joint Swelling, Tenderness Additional comments: Strenght 4/5 b/l. ROM is normal. SILT b/l. - Back Exam Back Exam: absent: CVA tenderness (L), CVA tenderness (R), paraspinal tenderness - Neurological Exam Neurological Exam: Alert, Awake, Oriented x3 - Skin Additional comments: Presence of ecchymosis on face and anterior b/l leg. Assessment and Plan - Assessment and Plan (Free Text) Assessment: 77 y/o, M, with PMhx of Myelodysplastic Syndrome, Pancytopenia, CKD, HTN and DM admitted for thrombocytopenia. Pancytopenia -Secondary to myelodysplatic syndrome -Plt 17-yesterday 10/24. -Platelets 42-Low on manual platelet count. -Platelets tranfusion performed this morning. -Hem-Onc consult Dr Pace -C/W Ferrous Sulfate PO Bilateral leg pain -Possibly due to claudication or pseudoclaudication. -Cilostazol ordered R 1st toe pain -Previously worked-up, 1 month ago: normal US doppler, WNL uric acid level, podiatry evaluated and concluded on possible hematoma. -Morphine 1mg IVP PRN Q6H Myelodysplastic syndrome -Bone marrow biopsy done on 09/04/17 reported findings suggestive of myelodysplasia. -F/U hem/onc, Dr Pace, recommendations -F/U Insurance availability to start Chemotherapy. CKD stage 3 -At Baseline. GFR 32 -Hx of complex R/Kidney cyst on previous imaging. -Will provide a script for MRI of abdomen pelvic for renal cyst further evaluation. HTN -Chronic, uncontrolled, St II -HCTZ 12.5mg DM type 2 -Last Hgb a1c 6.6 -Controlled by diet -F/U BMP AM. Correlate with fasting BS levels since patient has CKD -ISS low dose for now. Hypomagnesemia -Mg 1.6-WNL -Mg =1.5 yesterday 10/24. -Mg Oxide 400 mg given once yesterday DVT Prophylaxis SCD for now
--- NOTE | 2017-10-25 07:51 | RAD ---
HISTORY: pancytopenia COMPARISON: Frontal chest radiograph 10/16/2017. FINDINGS: LUNGS: No active pulmonary disease. PLEURA: No significant pleural effusion identified, no pneumothorax apparent. CARDIOVASCULAR: Normal. OSSEOUS STRUCTURES: No significant abnormalities. VISUALIZED UPPER ABDOMEN: Normal. OTHER FINDINGS: None. IMPRESSION: No interval acute cardiopulmonary disease appreciated.
[2017-10-25 08:07] VITALS: RESP 20; O2SAT 99
[2017-10-25] MEDS ORDERED: Lidocaine 2% Jelly (Uro-Jet) TOP ONE (11:25)
--- NOTE | 2017-10-25 11:25 | CP.PCM.CON ---
History of Present Illness - History of Present Illness History of Present Illness: 77 year old male with a history of DM, MDS diagnosed 08/2017 admitted with pancytopenia leg cramping and right toe pain. The patient is well known to me and was recently discharged from the hospital. He notes to worsening right big toe pain with discoloration at the tip. He denies abnormal bleeding but does bruise easily. Past medical history: DM, HL, MDS Past surgical history: Foot surgery Family history: Mother had bone cancer Social history: Denies tobacco, alcohol, and illicit drug use. Allergies: NKA Review of systems: All remaining review of systems including HEENT, cardiovascular, respiratory, gastrointestinal, genitourinary, musculoskeletal, dermatologic, neurologic, and psychiatric are negative unless mentioned in the HPI. Past Patient History - Infectious Disease Hx of Infectious Diseases: None - Past Medical History & Family History Past Medical History?: Yes - Past Social History Smoking Status: Never Smoked Alcohol: None Drugs: Denies - CARDIAC Hx Cardiac Disorders: Yes (HTN, hyperlipidemia) Hx Hypertension: Yes - PULMONARY Hx Respiratory Disorders: No - NEUROLOGICAL Hx Neurological Disorder: No - HEENT Hx HEENT Problems: No - RENAL Hx Chronic Kidney Disease: Yes Hx Kidney Stones: Yes - ENDOCRINE/METABOLIC Hx Endocrine Disorders: Yes Hx Diabetes Mellitus Type 2: Yes - HEMATOLOGICAL/ONCOLOGICAL Hx Blood Disorders: Yes (thrombocytopenia) - INTEGUMENTARY Hx Dermatological Problems: No - MUSCULOSKELETAL/RHEUMATOLOGICAL Hx Musculoskeletal Disorders: No - GASTROINTESTINAL Hx Gastrointestinal Disorders: No - GENITOURINARY/GYNECOLOGICAL Hx Genitourinary Disorders: No - PSYCHIATRIC Hx Psychophysiologic Disorder: No - SURGICAL HISTORY Hx Surgeries: Yes Other/Comment: Bunion - ANESTHESIA Hx Anesthesia: Yes Hx Anesthesia Reactions: No Hx Malignant Hyperthermia: No Meds Home Medications: Home Medication List Medication Instructions Recorded Confirmed Type Cilostazol [Pletal] 100 mg PO DAILY #30 tab 10/25/17 Rx Allergies/Adverse Reactions: Allergies Allergy/AdvReac Type Severity Reaction Status Date / Time No Known Allergies Allergy Verified 10/09/17 18:50 - Medications Medications: Current Medications Acetaminophen (Tylenol 325mg Tab) 325 mg PO Q6 PRN PRN Reason: Pain, Mild (1-3) Cilostazol (Pletal) 100 mg PO DAILY [facility] Ferrous Sulfate (Feosol) 325 mg PO BID [facility] Last Admin: 10/25/17 10:01 Dose: 325 mg Hydrochlorothiazide (Microzide) 12.5 mg PO DAILY [facility] Last Admin: 10/25/17 10:01 Dose: 12.5 mg Morphine Sulfate (Morphine) 1 mg IVP Q6 PRN PRN Reason: Pain, moderate (4-7) Last Admin: 10/25/17 06:11 Dose: 1 mg Physical Exam - Head Exam Head Exam: ATRAUMATIC - Eye Exam Eye Exam: Normal appearance - ENT Exam ENT Exam: Mucous Membranes Dry - Respiratory Exam Respiratory Exam: NORMAL BREATHING PATTERN - Cardiovascular Exam Cardiovascular Exam: +S1, +S2 - GI/Abdominal Exam GI & Abdominal Exam: Normal Bowel Sounds - Extremities Exam Additional comments: right big toe bruising. - Neurological Exam Neurological exam: Oriented x3 - Psychiatric Exam Psychiatric exam: Normal Affect, Normal Mood - Skin Skin Exam: Warm Results - Vital Signs Recent Vital Signs: Last Vital Signs Temp 98.5 F 10/25/17 08:06 Pulse 72 10/25/17 08:06 Resp 20 10/25/17 08:06 BP 159/71 H 10/25/17 08:06 Pulse Ox 99 10/25/17 08:06 - Labs Result Diagrams: 10/24/17 22:00 10/25/17 05:40 Labs: Laboratory Results - last 24 hr 10/24/17 10/24/17 10/24/17 21:45 22:00 22:00 WBC 3.6 L RBC 3.18 L Hgb 9.4 L Hct 27.2 L MCV 85.7 MCH 29.4 MCHC 34.3 RDW 16.9 H Plt Count 17 L* D Manual Plt Count MPV 8.7 Neut % (Auto) 37.5 L Lymph % (Auto) 40.4 H [place] % (Auto) 21.0 H Eos % (Auto) 0.7 Baso % (Auto) 0.4 Neut # (Auto) 1.4 L Lymph # (Auto) 1.5 [place] # (Auto) 0.8 Eos # (Auto) 0.0 Baso # (Auto) 0.0 Neutrophils % (Manual) 30 L Lymphocytes % (Manual) 55 H Monocytes % (Manual) 15 H Platelet Estimate Markedly decreased L Anisocytosis (manual) Slight Ovalocytes Slight Schistocytes Slight PT INR APTT Sodium 135 Potassium 4.4 Chloride 100 Carbon Dioxide 22 Anion Gap 17 BUN 55 H Creatinine 1.9 H Est GFR ( Amer) 42 Est GFR (Non-Af Amer) 34 Random Glucose 166 H Calcium 8.7 Phosphorus 3.4 Magnesium 1.5 L Total Bilirubin 0.5 AST 33 ALT 43 Alkaline Phosphatase 102 NT-Pro-B Natriuret Pep 907 H Total Protein 7.6 Albumin 3.5 Globulin 4.1 H Albumin/Globulin Ratio 0.9 L Vitamin B12 TSH 3rd Generation Urine Color Urine Clarity Urine pH Ur Specific [place] Urine Protein Urine Glucose (UA) Urine Ketones Urine Blood Urine Nitrate Urine Bilirubin Urine Urobilinogen Ur Leukocyte Esterase Urine RBC (Auto) Urine Microscopic WBC Blood Type O POSITIVE Antibody Screen Negative BBK History Checked Patient has bt 10/24/17 10/25/17 10/25/17 22:00 05:40 05:40 WBC RBC Hgb Hct MCV MCH MCHC RDW Plt Count Manual Plt Count 42 L* MPV Neut % (Auto) Lymph % (Auto) [place] % (Auto) Eos % (Auto) Baso % (Auto) Neut # (Auto) Lymph # (Auto) [place] # (Auto) Eos # (Auto) Baso # (Auto) Neutrophils % (Manual) Lymphocytes % (Manual) Monocytes % (Manual) Platelet Estimate Anisocytosis (manual) Ovalocytes Schistocytes PT 12.1 INR 1.1 APTT 28.7 Sodium 137 Potassium 4.2 Chloride 102 Carbon Dioxide 23 Anion Gap 16 BUN 51 H Creatinine 1.8 H Est GFR ( Amer) 44 Est GFR (Non-Af Amer) 37 Random Glucose 106 Calcium 8.5 Phosphorus Magnesium 1.6 Total Bilirubin AST ALT Alkaline Phosphatase NT-Pro-B Natriuret Pep Total Protein Albumin Globulin Albumin/Globulin Ratio Vitamin B12 297 TSH 3rd Generation 8.73 H Urine Color Urine Clarity Urine pH Ur Specific [place] Urine Protein Urine Glucose (UA) Urine Ketones Urine Blood Urine Nitrate Urine Bilirubin Urine Urobilinogen Ur Leukocyte Esterase Urine RBC (Auto) Urine Microscopic WBC Blood Type Antibody Screen BBK History Checked 10/25/17 06:31 WBC RBC Hgb Hct MCV MCH MCHC RDW Plt Count Manual Plt Count MPV Neut % (Auto) Lymph % (Auto) [place] % (Auto) Eos % (Auto) Baso % (Auto) Neut # (Auto) Lymph # (Auto) [place] # (Auto) Eos # (Auto) Baso # (Auto) Neutrophils % (Manual) Lymphocytes % (Manual) Monocytes % (Manual) Platelet Estimate Anisocytosis (manual) Ovalocytes Schistocytes PT INR APTT Sodium Potassium Chloride Carbon Dioxide Anion Gap BUN Creatinine Est GFR ( Amer) Est GFR (Non-Af Amer) Random Glucose Calcium Phosphorus Magnesium Total Bilirubin AST ALT Alkaline Phosphatase NT-Pro-B Natriuret Pep Total Protein Albumin Globulin Albumin/Globulin Ratio Vitamin B12 TSH 3rd Generation Urine Color Straw Urine Clarity Clear Urine pH 6.0 Ur Specific [place] 1.010 Urine Protein 30 Urine Glucose (UA) Neg Urine Ketones Negative Urine Blood Moderate Urine Nitrate Negative Urine Bilirubin Negative Urine Urobilinogen 0.2-1.0 Ur Leukocyte Esterase Neg Urine RBC (Auto) 22 H Urine Microscopic WBC < 1 Blood Type Antibody Screen BBK History Checked Assessment & Plan (1) Pancytopenia Assessment and Plan: secondary to MDS transfusion support PRN Status: Acute (2) Myelodysplasia (myelodysplastic syndrome) Assessment and Plan: outpatient treatment Thank you for this interesting consult. Status: Acute
[2017-10-25] MEDS ORDERED: Cilostazol 100 mg Tab UD PO SCH (11:30)
[2017-10-25 12:55] LABS: FOLATE 6.2 ng/mL
[2017-10-25 15:56] VITALS: BP 147/75; PULSE 75; TEMP 98.3
--- NOTE | 2017-10-25 18:08 | CP.PCM.DIS ---
Provider - Provider Date of Admission: 10/24/17 22:37 Attending physician: Karina Luevano MD Primary care physician: [facility] Consults: Hematology: Dr Pace Time Spent in preparation of Discharge (in minutes): 25 Diagnosis - Discharge Diagnosis (1) Thrombocytopenia Status: Acute Comment: -Received platelet infusion. -Pt in awaiting status for insurance card. Pt is to begin chemotherapy soon. -Will f/u with Dr Pace for Myelodysplasia d/o. Hospital Course - Lab Results Lab Results: Most Recent Lab Values WBC 3.6 K/uL (4.8-10.8) L 10/24/17 22:00 RBC 3.18 Mil/uL (4.40-5.90) L 10/24/17 22:00 Hgb 9.4 g/dL (12.0-18.0) L 10/24/17 22:00 Hct 27.2 % (35.0-51.0) L 10/24/17 22:00 MCV 85.7 fl (80.0-94.0) 10/24/17 22:00 MCH 29.4 pg (27.0-31.0) 10/24/17 22:00 MCHC 34.3 g/dL (33.0-37.0) 10/24/17 22:00 RDW 16.9 % (11.5-14.5) H 10/24/17 22:00 Plt Count 17 K/uL (130-400) L* D 10/24/17 22:00 Manual Plt Count 42 K/uL (130-400) L* 10/25/17 05:40 MPV 8.7 fl (7.2-11.7) 10/24/17 22:00 Neut % (Auto) 37.5 % (50.0-75.0) L 10/24/17 22:00 Lymph % (Auto) 40.4 % (20.0-40.0) H 10/24/17 22:00 [place] % (Auto) 21.0 % (0.0-10.0) H 10/24/17 22:00 Eos % (Auto) 0.7 % (0.0-4.0) 10/24/17 22:00 Baso % (Auto) 0.4 % (0.0-2.0) 10/24/17 22:00 Neut # (Auto) 1.4 K/uL (1.8-7.0) L 10/24/17 22:00 Lymph # (Auto) 1.5 K/uL (1.0-4.3) 10/24/17 22:00 [place] # (Auto) 0.8 K/uL (0.0-0.8) 10/24/17 22:00 Eos # (Auto) 0.0 K/uL (0.0-0.7) 10/24/17 22:00 Baso # (Auto) 0.0 K/uL (0.0-0.2) 10/24/17 22:00 Neutrophils % (Manual) 30 % (42-75) L 10/24/17 22:00 Lymphocytes % (Manual) 55 % (20-50) H 10/24/17 22:00 Monocytes % (Manual) 15 % (0-10) H 10/24/17 22:00 Platelet Estimate Markedly decreased (NORMAL) L 10/24/17 22:00 Anisocytosis (manual) Slight 10/24/17 22:00 Ovalocytes Slight 10/24/17 22:00 Schistocytes Slight 10/24/17 22:00 PT 12.1 Seconds (9.8-13.1) 10/24/17 22:00 INR 1.1 (0.9-1.2) 10/24/17 22:00 APTT 28.7 Seconds (25.6-37.1) 10/24/17 22:00 Sodium 137 mmol/l (132-148) 10/25/17 05:40 Potassium 4.2 MMOL/L (3.6-5.0) 10/25/17 05:40 Chloride 102 mmol/L (98-107) 10/25/17 05:40 Carbon Dioxide 23 mmol/L (22-30) 10/25/17 05:40 Anion Gap 16 (10-20) 10/25/17 05:40 BUN 51 mg/dl (9-20) H 10/25/17 05:40 Creatinine 1.8 mg/dl (0.8-1.5) H 10/25/17 05:40 Est GFR ( Amer) 44 10/25/17 05:40 Est GFR (Non-Af Amer) 37 10/25/17 05:40 Random Glucose 106 mg/dL (75-110) 10/25/17 05:40 Calcium 8.5 mg/dL (8.4-10.2) 10/25/17 05:40 Phosphorus 3.4 mg/dl (2.5-4.5) 10/24/17 22:00 Magnesium 1.6 MG/DL (1.6-2.3) 10/25/17 05:40 Total Bilirubin 0.5 mg/dl (0.2-1.3) 10/24/17 22:00 AST 33 U/L (17-59) 10/24/17 22:00 ALT 43 U/L (21-72) 10/24/17 22:00 Alkaline Phosphatase 102 U/L (38-126) 10/24/17 22:00 NT-Pro-B Natriuret Pep 907 pg/ml (0-900) H 10/24/17 22:00 Total Protein 7.6 G/DL (6.3-8.2) 10/24/17 22:00 Albumin 3.5 g/dL (3.5-5.0) 10/24/17 22:00 Globulin 4.1 gm/dL (2.2-3.9) H 10/24/17 22:00 Albumin/Globulin Ratio 0.9 (1.0-2.1) L 10/24/17 22:00 Vitamin B12 297 pg/mL (239-931) 10/25/17 05:40 Folate 6.2 ng/mL 10/25/17 05:40 TSH 3rd Generation 8.73 mIU/ML (0.46-4.68) H 10/25/17 05:40 Urine Color Straw (YELLOW) 10/25/17 06:31 Urine Clarity Clear (Clear) 10/25/17 06:31 Urine pH 6.0 (5.0-8.0) 10/25/17 06:31 Ur Specific [place] 1.010 (1.003-1.030) 10/25/17 06:31 Urine Protein 30 mg/dL (NEGATIVE) 10/25/17 06:31 Urine Glucose (UA) Neg mg/dL (Normal) 10/25/17 06:31 Urine Ketones Negative mg/dL (NEGATIVE) 10/25/17 06:31 Urine Blood Moderate (NEGATIVE) 05/02/18 06:31 Urine Nitrate Negative (NEGATIVE) 10/25/17 06:31 Urine Bilirubin Negative (NEGATIVE) 10/25/17 06:31 Urine Urobilinogen 0.2-1.0 mg/dL (0.2-1.0) 10/25/17 06:31 Ur Leukocyte Esterase Neg Patric/uL (Negative) 10/25/17 06:31 Urine RBC (Auto) 22 /hpf (0-3) H 10/25/17 06:31 Urine Microscopic WBC < 1 /hpf (0-5) 10/25/17 06:31 Blood Type O POSITIVE 10/24/17 21:45 Antibody Screen Negative 10/24/17 21:45 BBK History Checked Patient has bt 10/24/17 21:45 - Hospital Course Hospital Course: 77 y/o M, with pMHx of MDS, pancitopenia, DM2, HTN admitted for thrombocytopenia. Platelet tranfusion was administered this morning, Plt increased from 17 to 42. Pt stable tolerated PO. Pt was inititated with PO Cilostazol for b/l leg cramping pain. Will f/u with PMD within 1 week. Pt is to f/u with Dr Pace for MDS and chemotherapy initiation. - Date & Time of H&P Date of H&P: 10/24/17 Time of H&P: 23:28 Discharge Exam - Head Exam Head Exam: ATRAUMATIC - Eye Exam Eye Exam: EOMI - ENT Exam ENT Exam: Mucous Membranes Dry - Neck Exam Neck exam: Full Rom - Respiratory Exam Respiratory Exam: Clear to PA & Lateral, UNREMARKABLE - Cardiovascular Exam Cardiovascular Exam: REGULAR RHYTHM, +S1, +S2 - GI/Abdominal Exam GI & Abdominal Exam: Normal Bowel Sounds, Soft, Unremarkable Discharge Plan - Discharge Medications Prescriptions: Cilostazol [Pletal] 100 mg PO DAILY #30 tab - Follow Up Plan Condition: GOOD Disposition: HOME/ ROUTINE Instructions: Myelodysplastic Syndromes (DC), Myelodysplastic Syndromes (GEN) Additional Instructions: Continue with Onc Dr Pace as out patient, schedule as soon as possible for therapy initiation. Begin new medication cilostazol. Obtain Renal MRI for f/u previously noticed renal cysts. See PMD within 1 week of discharge. ER precautions discussed.
--- NOTE | 2017-10-25 19:24 | CARD ---
APPROVED REPORT EKG Measurement Heart [id number] <Conclusion> Normal sinus rhythm Normal ECG
== END 2017-10-25 19:20 | disposition home or self-care (01) ==
LOC: H.ER 21:25 → INTOOBSV 22:37 → H.ERHOLD 22:37 → H.MEDSURG1 23:30
PROVIDERS: ADMIT Family Medicine Geriatric Medicine; ATTEND Family Medicine Geriatric Medicine
DX: D61.818 Other pancytopenia (principal); D46.9 Myelodysplastic syndrome, unspecified; I12.9 Hypertensive chronic kidney disease with stage 1 through stage 4 chronic kidney disease, or unspecified chronic kidney disease; N18.3 Chronic kidney disease, stage 3 (moderate); E11.22 Type 2 diabetes mellitus with diabetic chronic kidney disease; E83.42 Hypomagnesemia; E78.5 Hyperlipidemia, unspecified; M79.604 Pain in right leg; M79.605 Pain in left leg; M79.674 Pain in right toe(s); N28.1 Cyst of kidney, acquired; E78.00 Pure hypercholesterolemia, unspecified
CPT/HCPCS: 36415; 36430; 71045; 80048; 80053; 81003; 82607; 82746; 83735; 83880; 84100; 84443; 85025; 85610; 85730; 86850; 86900; 87040; 93005; 96374; 99283; G0378; J2270; J7040; P9035

== ENCOUNTER 2017-11-01 14:15 | Inpatient (IN) | payer MEDICAID ==
--- NOTE | 2017-11-01 15:29 | ED PDOC ---
HPI: General Adult Time Seen by Provider: 11/01/17 14:30 Chief Complaint (Nursing): Abnormal Labs Chief Complaint (Provider): Abnormal Labs History Per: Patient History/Exam Limitations: no limitations Onset/Duration Of Symptoms: Other (x 2 months) Current Symptoms Are (Timing): Still Present Additional History Per: Prior Records Additional Complaint(s): 77-year-old male, with a history of thrombocytopenia, hypertension and diabetes , presents to ED for bilateral leg pain for 2 months and abnormal labs. Patient states he received a phone call from PMD stating his blood count was low and to go to ER. Reports bilateral foot pain when his platelets are low due to his thrombocytopenia. (+) right great toe pain. (-) shortness of breath, (-) fatigue , (-) fever, (-) cough. Denies any falls or taking blood thinner medications. Oncologist: Dr. Pace PMD: Dr. Chandrakant Martinez Past Medical History Reviewed: Historical Data, Nursing Documentation, Vital Signs Vital Signs: Last Vital Signs Temp 98.2 F 11/02/17 08:13 Pulse 67 11/02/17 08:13 Resp 18 11/02/17 08:13 BP 145/67 11/02/17 08:13 Pulse Ox 99 11/02/17 10:10 - Medical History PMH: Anemia, Diabetes, HTN, Hypercholesterolemia, Kidney Stones, Chronic Kidney Disease Denies: HIV - Surgical History Other surgeries: Left Foot Surgery - Family History Family History: States: Unknown Family Hx - Living Arrangements Living Arrangements: With Family - Social History Current smoker - smoking cessation education provided: No Alcohol: None Drugs: Denies - Home Medications Home Medications: Ambulatory Orders Medication Instructions Recorded Acetaminophen [Tylenol 325mg tab] 325 mg PO Q6 PRN #30 tab 10/18/17 hydroCHLOROthiazide [Microzide] 12.5 mg PO DAILY #30 cap 10/18/17 Cilostazol [Pletal] 100 mg PO DAILY #30 tab 10/25/17 Ferrous Sulfate [Feosol] 325 mg PO TID 11/01/17 Lidocaine 5% [Lidocaine 5%] 1 appl TOP HS 11/01/17 - Allergies Allergies/Adverse Reactions: Allergies Allergy/AdvReac Type Severity Reaction Status Date / Time No Known Allergies Allergy Verified 10/09/17 18:50 Review of Systems ROS Statement: Except As Marked, All Systems Reviewed And Found Negative Constitutional: Negative for: Fever, Other (fatigue) Respiratory: Negative for: Cough, Shortness of Breath Musculoskeletal: Positive for: Leg Pain (bilateral) Physical Exam - Reviewed Nursing Documentation Reviewed: Yes Vital Signs Reviewed: Yes - Physical Exam Appears: Positive for: Well, Non-toxic Head Exam: Positive for: NORMAL INSPECTION Skin: Positive for: Warm, Dry. Negative for: Normal Color ((+) petechiae on face) ENT: Positive for: Other (Small ulcer noted to right side of tongue) Neck: Positive for: Normal Cardiovascular/Chest: Positive for: Regular Rate, Rhythm Respiratory: Positive for: Normal Breath Sounds. Negative for: Respiratory Distress Pulses-Dorsalis Pedis (L): 2+ Pulses-Dorsalis Pedis (R): 2+ Gastrointestinal/Abdominal: Positive for: Normal Exam Back: Positive for: Normal Inspection Extremity: Positive for: Other ((+) Blacken discoloration noted to right great toe). Negative for: Calf Tenderness Neurologic/Psych: Positive for: Alert, Oriented (x 3), Other (Neuromuscular intact) - Laboratory Results Result Diagrams: 11/01/17 15:50 11/01/17 15:50 - ECG O2 Sat by Pulse Oximetry: 99 (RA) Pulse Ox Interpretation: Normal Medical Decision Making Medical Decision Making: Time: 15:08 thrombocytopenia due to myelodysplastic disorder Plan: - Type and Screen - CMP - CBC (with differentials) - Prothrombin Time Time: 15:23 - Duplex Lower Extremity Ultrasound Time: 16:[address] 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 Pace who advised 1 unit of platelets, 2 units of blood and admission. Time: 17:41 --Patient consented to blood transfusion. According to Dr. Pace, patient was diagnosed with myelodysplastic syndrome a month ago and is waiting to start treatment. He is requesting that his brother, Bhavin Bravo, be the package delivery driver for his interactions. Patient will be admitted into inpatient routine under the care of Dr. Adriana Guzmán for myelodysplastic syndrome. Scribe Attestation: Documented by Matthew Mane, acting as a scribe for Ang Block MD. Provider Scribe Attestation: All medical record entries made by the Scribe were at my direction and personally dictated by me. I have reviewed the chart and agree that the record accurately reflects my personal performance of the history, physical exam, medical decision making, and the department course for this patient. I have also personally directed, reviewed, and agree with the discharge instructions and disposition. Disposition - Clinical Impression Clinical Impression: Myelodysplasia (myelodysplastic syndrome), Thrombocytopenia - Patient ED Disposition Is Patient to be Admitted: Yes Counseled Patient/Family Regarding: Studies Performed, Diagnosis - Disposition Disposition Time: 17:00 Condition: STABLE - Pt Status Changed To: Hospital Disposition Of: Inpatient - Admit Certification Admit to Inpatient:: After my assessment, the patient will require hospitalization for at least two midnights. This is because of the severity of symptoms shown, intensity of services needed, and/or the medical risk in this patient being treated as an outpatient.
[2017-11-01 16:12] LABS: BASO % 0.9 % (0.0-2.0); EOS % 1.2 % (0.0-4.0); HEMOGLOBIN 7.4 g/dL (12.0-18.0); LYMPH # 1.3 K/uL (1.0-4.3); LYMPH % 49.6 % (20.0-40.0); MEAN CELL VOLUME 86.4 fl (80.0-94.0); MEAN CORPUSCULAR HEMOGLOBIN 29.2 pg (27.0-31.0); MEAN CORPUSCULAR HGB CONC 33.8 g/dL (33.0-37.0); MEAN PLATELET VOLUME 11.7 fl (7.2-11.7); MONO # 0.5 K/uL (0.0-0.8); MONO % 18.7 % (0.0-10.0); NEUT # 0.8 K/uL (1.8-7.0); NEUT % 29.6 % (50.0-75.0); NRBC % 0.3 % (0.0-0.0); RBC 2.54 Mil/uL (4.40-5.90); RED CELL DISTRIBUTION WIDTH 16.9 % (11.5-14.5); WHITE BLOOD COUNT 2.6 K/uL (4.8-10.8)
[2017-11-01 16:24] LABS: ALB/GLOB RATIO 0.8 (1.0-2.1); ALBUMIN 3.2 g/dL (3.5-5.0); CALCIUM 8.6 mg/dL (8.4-10.2)
[2017-11-01 16:34] LABS: INR 1.2 (0.9-1.2); PROTHROMBIN TIME 12.8 Seconds (9.8-13.1)
--- NOTE | 2017-11-01 16:42 | US ---
PROCEDURE: Bilateral lower extremity venous duplex Doppler. HISTORY: bilateral leg pain COMPARISON: None available. TECHNIQUE: Bilateral common femoral, superficial femoral, popliteal and posterior tibial veins were evaluated. Flow was assessed with color Doppler, compressibility, assessment of phasic flow and augmentation response. The saphenofemoral junctions were also assessed. FINDINGS: The bilateral saphenofemoral junctions appear patent and competent with normal compressibility and phasic blood flow appreciated. COMMON FEMORAL VEIN: Right CFV: Unremarkable. Left CFV: Unremarkable. SUPERFICIAL FEMORAL VEIN: Right SFV: Unremarkable. Left SFV: Unremarkable. POPLITEAL VEIN: Right Popliteal: Unremarkable. Left Popliteal: Unremarkable. POSTERIOR TIBIAL VEIN: Right PTV: Unremarkable. Left PTV: Unremarkable. OTHER FINDINGS: None. IMPRESSION: No sonographic evidence of deep venous thrombosis bilateral lower extremities.
--- NOTE | 2017-11-01 17:58 | CP.PCM.HP ---
History of Present Illness - History of Present Illness History of Present Illness: Hx taken from patient and medical records Full code PMD: [facility] Hem-onc: Dr Pace 77 y/o M, with pMHx of MDS, pancitopenia, DM2, HTN presents to ED after ambulatory blood work showed severe thromcitopenia. Patient was recently discharged fro hosp 1 week ago for same complains and plt=42 at the time of discharge after he received plt transfusion. Patient still c/o LE B/L cramps, intermittent ,severe at times. The patient states that his DM is controlled with diet and he has been taking HCTZ for elevated BP Admits easy bruising. The patient has no other complains. He denies changes in urination or stools. Denies CP, SOB, palpitations. His functional ability has decreased for the past few months as well as his mobility but he is still able to ambulate. As per patient he is awaiting insurance availability to start Chemotherapy. ED Course: Plt=6, Hgb=7.4, BUN/Creat= 54/2.3, NA and K WNL ED attendant discussed case with Hem-Onc Platelet transfusion ordered(Consent obtained) Past Surg hx: L foot bunion Social hx: Denies x3 Family hx: Mother w/ bone cancer, other family members w/ DM2 Allergies: NKDA Next of kin: Ottoniel Diaz (son) [phone] Present on Admission - Present on Admission Any Indicators Present on Admission: No Review of Systems - Review of Systems All systems: reviewed and no additional remarkable complaints except (THose noted on HPI) Past Patient History - Infectious Disease Hx of Infectious Diseases: None - Past Medical History & Family History Past Medical History?: Yes - Past Social History Smoking Status: Never Smoked - CARDIAC Hx Hypercholesterolemia: Yes Hx Hypertension: Yes - PULMONARY Hx Respiratory Disorders: No - NEUROLOGICAL Hx Neurological Disorder: No - HEENT Hx HEENT Problems: No - RENAL Hx Chronic Kidney Disease: Yes Hx Kidney Stones: Yes - ENDOCRINE/METABOLIC Hx Endocrine Disorders: Yes Hx Diabetes Mellitus Type 2: Yes - HEMATOLOGICAL/ONCOLOGICAL Hx Anemia: Yes Hx Human Immunodeficiency Virus (HIV): No - INTEGUMENTARY Hx Dermatological Problems: No - MUSCULOSKELETAL/RHEUMATOLOGICAL Hx Musculoskeletal Disorders: No - GASTROINTESTINAL Hx Gastrointestinal Disorders: No - GENITOURINARY/GYNECOLOGICAL Hx Genitourinary Disorders: No - PSYCHIATRIC Hx Psychophysiologic Disorder: No Hx Substance Use: No - SURGICAL HISTORY Hx Surgeries: Yes Other/Comment: Bunion - ANESTHESIA Hx Anesthesia: Yes Hx Anesthesia Reactions: No Hx Malignant Hyperthermia: No Meds Allergies/Adverse Reactions: Allergies Allergy/AdvReac Type Severity Reaction Status Date / Time No Known Allergies Allergy Verified 10/09/17 18:50 Physical Exam - Constitutional Appears: Toxic, Chronically Ill - Head Exam Head Exam: absent: NORMAL INSPECTION (petechiae face) - Eye Exam Eye Exam: EOMI, PERRL - ENT Exam ENT Exam: Mucous Membranes Moist Additional comments: NO oral mucosal bleeding - Neck Exam Neck exam: Negative for: Lymphadenopathy - Respiratory Exam Respiratory Exam: Clear to Auscultation Bilateral, NORMAL BREATHING PATTERN. absent: Decreased Breath Sounds, Rales, Rhonchi, Wheezes - Cardiovascular Exam Cardiovascular Exam: REGULAR RHYTHM, +S1, +S2, Systolic Murmur (2/6). absent: Gallop - GI/Abdominal Exam GI & Abdominal Exam: Normal Bowel Sounds, Soft. absent: Distended, Guarding, Rebound, Rigid, Tenderness - Extremities Exam Extremities exam: Positive for: normal capillary refill. Negative for: calf tenderness, normal inspection (B/L LE petechiae), pedal edema - Back Exam Back exam: absent: CVA tenderness (L), CVA tenderness (R) - Neurological Exam Neurological exam: Alert, Oriented x3 Additional comments: No motosensory deficit - Skin Skin Exam: Pallor, Petechiae, Warm Results - Vital Signs Recent Vital Signs: Last Vital Signs Temp 97.9 F 11/01/17 14:21 Pulse 92 H 11/01/17 14:21 Resp 16 11/01/17 16:12 BP 144/64 11/01/17 14:21 Pulse Ox 99 11/01/17 17:53 - Labs Result Diagrams: 11/01/17 15:50 11/01/17 15:50 Labs: Laboratory Results - last 24 hr 11/01/17 11/01/17 11/01/17 15:50 15:50 15:50 WBC 2.6 L RBC 2.54 L Hgb 7.4 L Hct 21.9 L MCV 86.4 MCH 29.2 MCHC 33.8 RDW 16.9 H Plt Count 6 L* D MPV 11.7 Neut % (Auto) 29.6 L Lymph % (Auto) 49.6 H [place] % (Auto) 18.7 H Eos % (Auto) 1.2 Baso % (Auto) 0.9 Neut # (Auto) 0.8 L Lymph # (Auto) 1.3 [place] # (Auto) 0.5 Eos # (Auto) 0.0 Baso # (Auto) 0.0 PT 12.8 INR 1.2 Sodium 140 Potassium 4.3 Chloride 104 Carbon Dioxide 21 L Anion Gap 19 BUN 54 H Creatinine 2.1 H Est GFR ( Amer) 37 Est GFR (Non-Af Amer) 31 Random Glucose 213 H Calcium 8.6 Total Bilirubin 0.4 AST 17 D ALT 35 Alkaline Phosphatase 80 Total Protein 7.1 Albumin 3.2 L Globulin 3.9 Albumin/Globulin Ratio 0.8 L Blood Type Antibody Screen BBK History Checked 11/01/17 15:50 WBC RBC Hgb Hct MCV MCH MCHC RDW Plt Count MPV Neut % (Auto) Lymph % (Auto) [place] % (Auto) Eos % (Auto) Baso % (Auto) Neut # (Auto) Lymph # (Auto) [place] # (Auto) Eos # (Auto) Baso # (Auto) PT INR Sodium Potassium Chloride Carbon Dioxide Anion Gap BUN Creatinine Est GFR ( Amer) Est GFR (Non-Af Amer) Random Glucose Calcium Total Bilirubin AST ALT Alkaline Phosphatase Total Protein Albumin Globulin Albumin/Globulin Ratio Blood Type O POSITIVE Antibody Screen Negative BBK History Checked Patient has bt Assessment & Plan - Assessment and Plan (Free Text) Assessment: 77 y/o M with PMhx of MDS admitted for severe thrombocitopenia. -Pancytopenia Acute on chronic Secondary to myelodysplatic syndrome Platelets =6.+ petechiae and ecchymosis Hgb 7.4 Platelets tranfusion ordered Hem-Onc consult Dr Pace C/W Ferrous Sulfate PO Hold Pletal for now -Myelodysplastic syndrome Chronic Bone marrow biopsy done on 09/04/17 reported findings suggestive of myelodysplasia. F/U hem/onc recs As per patient he is awaiting for insurance availability to start Chemotherapy -CKD stage 3 B Stable Monitor BMP after transfusion -HTN Chronic WNL on admission Monitor C/W HCTZ 12.5mg daily -DM type 2 Last Hgb a1c 6.6 Controlled by diet ISS low dose
[2017-11-01] MEDS ORDERED: Glucagon Recombinant 1 mg Inj IM PRN (19:46)
[2017-11-01] MEDS ORDERED: Dextrose 50% SYRINGE Inj (50 ml) IV PRN (19:46)
--- NOTE | 2017-11-01 21:33 | CP.PCM.CON ---
History of Present Illness - History of Present Illness History of Present Illness: 77 year old male with a history of DM, MDS diagnosed 08/2017 admitted with pancytopenia leg cramping and right toe pain. The patient is well known to me and was recently discharged from the hospital. He notes to worsening right big toe pain with discoloration at the tip. He denies abnormal bleeding but does bruise easily. Past medical history: DM, HL, MDS Past surgical history: Foot surgery Family history: Mother had bone cancer Social history: Denies tobacco, alcohol, and illicit drug use. Allergies: NKA Review of systems: All remaining review of systems including HEENT, cardiovascular, respiratory, gastrointestinal, genitourinary, musculoskeletal, dermatologic, neurologic, and psychiatric are negative unless mentioned in the HPI. Past Patient History - Infectious Disease Hx of Infectious Diseases: None - Past Medical History & Family History Past Medical History?: Yes - Past Social History Smoking Status: Never Smoked - CARDIAC Hx Hypercholesterolemia: Yes Hx Hypertension: Yes - PULMONARY Hx Respiratory Disorders: No - NEUROLOGICAL Hx Neurological Disorder: No - HEENT Hx HEENT Problems: No - RENAL Hx Chronic Kidney Disease: Yes Hx Kidney Stones: Yes - ENDOCRINE/METABOLIC Hx Endocrine Disorders: Yes Hx Diabetes Mellitus Type 2: Yes - HEMATOLOGICAL/ONCOLOGICAL Hx Anemia: Yes Hx Human Immunodeficiency Virus (HIV): No - INTEGUMENTARY Hx Dermatological Problems: No - MUSCULOSKELETAL/RHEUMATOLOGICAL Hx Musculoskeletal Disorders: No - GASTROINTESTINAL Hx Gastrointestinal Disorders: No - GENITOURINARY/GYNECOLOGICAL Hx Genitourinary Disorders: No - PSYCHIATRIC Hx Psychophysiologic Disorder: No Hx Substance Use: No - SURGICAL HISTORY Hx Surgeries: Yes Other/Comment: Bunion - ANESTHESIA Hx Anesthesia: Yes Hx Anesthesia Reactions: No Hx Malignant Hyperthermia: No Meds Allergies/Adverse Reactions: Allergies Allergy/AdvReac Type Severity Reaction Status Date / Time No Known Allergies Allergy Verified 10/09/17 18:50 - Medications Medications: Current Medications Acetaminophen (Tylenol 325mg Tab) 325 mg PO Q6 PRN PRN Reason: Pain, Mild (1-3) Last Admin: 11/01/17 19:25 Dose: 325 mg Dextrose (Dextrose 50% Inj) 0 ml IV STAT PRN; Protocol PRN Reason: Hypoglycemia Protocol Dextrose (Glutose 15) 0 gm PO ONCE PRN; Protocol PRN Reason: Hypoglycemia Protocol Ferrous Sulfate (Feosol) 325 mg PO TID [place] Glucagon (Glucagen Diagnostic Kit) 0 mg IM STAT PRN; Protocol PRN Reason: Hypoglycemia Protocol Hydrochlorothiazide (Microzide) 12.5 mg PO DAILY [facility] Insulin Human Regular (Humulin R) 0 units SC ACCU-CHECK [place] PRN Reason: Protocol Lidocaine (Xylocaine 2.5%) 1 applic TOP HS [facility] Physical Exam - Head Exam Head Exam: ATRAUMATIC - Eye Exam Eye Exam: Normal appearance - ENT Exam ENT Exam: Mucous Membranes Dry - Respiratory Exam Respiratory Exam: NORMAL BREATHING PATTERN - Cardiovascular Exam Cardiovascular Exam: +S1, +S2 - GI/Abdominal Exam GI & Abdominal Exam: Normal Bowel Sounds - Extremities Exam Additional comments: + petechie over LE - Neurological Exam Neurological exam: Oriented x3 - Psychiatric Exam Psychiatric exam: Normal Affect, Normal Mood - Skin Skin Exam: Warm Results - Vital Signs Recent Vital Signs: Last Vital Signs Temp 97.9 F 11/01/17 19:17 Pulse 72 11/01/17 19:17 Resp 16 11/01/17 19:17 BP 121/67 11/01/17 19:17 Pulse Ox 99 11/01/17 18:32 - Labs Result Diagrams: 11/01/17 15:50 11/01/17 15:50 Labs: Laboratory Results - last 24 hr 11/01/17 11/01/17 11/01/17 15:50 15:50 15:50 WBC 2.6 L RBC 2.54 L Hgb 7.4 L Hct 21.9 L MCV 86.4 MCH 29.2 MCHC 33.8 RDW 16.9 H Plt Count 6 L* D MPV 11.7 Neut % (Auto) 29.6 L Lymph % (Auto) 49.6 H [place] % (Auto) 18.7 H Eos % (Auto) 1.2 Baso % (Auto) 0.9 Neut # (Auto) 0.8 L Lymph # (Auto) 1.3 [place] # (Auto) 0.5 Eos # (Auto) 0.0 Baso # (Auto) 0.0 PT 12.8 INR 1.2 Sodium 140 Potassium 4.3 Chloride 104 Carbon Dioxide 21 L Anion Gap 19 BUN 54 H Creatinine 2.1 H Est GFR ( Amer) 37 Est GFR (Non-Af Amer) 31 Random Glucose 213 H Calcium 8.6 Total Bilirubin 0.4 AST 17 D ALT 35 Alkaline Phosphatase 80 Total Protein 7.1 Albumin 3.2 L Globulin 3.9 Albumin/Globulin Ratio 0.8 L Blood Type Antibody Screen Crossmatch BBK History Checked 11/01/17 15:50 WBC RBC Hgb Hct MCV MCH MCHC RDW Plt Count MPV Neut % (Auto) Lymph % (Auto) [place] % (Auto) Eos % (Auto) Baso % (Auto) Neut # (Auto) Lymph # (Auto) [place] # (Auto) Eos # (Auto) Baso # (Auto) PT INR Sodium Potassium Chloride Carbon Dioxide Anion Gap BUN Creatinine Est GFR ( Amer) Est GFR (Non-Af Amer) Random Glucose Calcium Total Bilirubin AST ALT Alkaline Phosphatase Total Protein Albumin Globulin Albumin/Globulin Ratio Blood Type O POSITIVE Antibody Screen Negative Crossmatch See Detail BBK History Checked Patient has bt Assessment & Plan (1) Pancytopenia Assessment and Plan: secondary to MDS to receive 1 bag platelets and 2U PRBC Status: Acute (2) Myelodysplasia (myelodysplastic syndrome) Assessment and Plan: will give a dose of procrit transfusion support outpatient treatment; needs social work assistance with HMO Thank you for this interesting consult. Status: Acute
[2017-11-01] MEDS ORDERED: Lidocaine 2.5% OINTMENT TOP SCH (22:00)
[2017-11-01] MEDS ORDERED: Lidocaine 2% Jelly (Uro-Jet) TOP SCH (23:00)
[2017-11-01] MEDS: Insulin Regular 100 units/ml SC SCH (23:33)
[2017-11-01] MEDS: Lidocaine 2% GEL TOP SCH (23:43)
[2017-11-02] MEDS: Insulin Regular 100 units/ml SC SCH ×4 (07:50→22:11)
--- NOTE | 2017-11-02 07:58 | PQF GENQUE ---
This form is a permanent part of the medical record 11/02/17 Dr. Ryne Guzmán, Would you please clarify if there is an associated diagnosis or not to go along with the following documentation of the right great toe being black in appearance per the ER. Patient with a history of DM II is admitted for thrombocytopenia 2* MDS. ER has documented that the right great toe is black in color. Clarification of your documentation is requested to better reflect the severity of illness and intensity of treatment of your patient. Indicators present PHYSICIAN'S RESPONSE Hematoma on toe Based on your medical judgment of the clinical indicators outlined above please clarify the following: [] Practitioner response [] If unable to determine, please check the box, sign and date. Present On Admission (POA) Indicator: [] Present at the time of admission [] Not present at the time of admission [] Clinically Undetermined In responding to this query, please exercise your independent professional judgment. The fact that a question is asked does not imply that any particular answer is desired or expected. Thank you for your clarification on this documentation. If you have any questions please call:ext [phone] * Thank you, Lisa Aguilera RN CDMP [facility]
[2017-11-02] MEDS ORDERED: Epoetin Alfa 20000 UNIT/ML (RENAL DOSE) SC ONE (10:00)
--- NOTE | 2017-11-02 12:49 | CP.PCM.PN ---
Subjective - Date & Time of Evaluation Date of Evaluation: 11/02/17 Time of Evaluation: 10:00 - Subjective Subjective: 77 y/o M evaluated and examined by bedside. Pt reports feeling better than yesterday. Blood transfusion in process. Pt afebrile, tolerating PO with NO acte event overnight. Objective - Vital Signs/Intake and Output Vital Signs (last 24 hours): Temp Pulse Resp BP Pulse Ox 98.2 F 67 18 145/67 99 11/02/17 08:13 11/02/17 08:13 11/02/17 08:13 11/02/17 08:13 11/02/17 10:11 - Medications Medications: Current Medications Acetaminophen (Tylenol 325mg Tab) 650 mg PO Q6 PRN PRN Reason: Pain, Mild (1-3) Dextrose (Dextrose 50% Inj) 0 ml IV STAT PRN; Protocol PRN Reason: Hypoglycemia Protocol Dextrose (Glutose 15) 0 gm PO ONCE PRN; Protocol PRN Reason: Hypoglycemia Protocol Ferrous Sulfate (Feosol) 325 mg PO TID [facility] Last Admin: 11/02/17 12:14 Dose: 325 mg Glucagon (Glucagen Diagnostic Kit) 0 mg IM STAT PRN; Protocol PRN Reason: Hypoglycemia Protocol Hydrochlorothiazide (Microzide) 12.5 mg PO DAILY [facility] Last Admin: 11/02/17 08:11 Dose: 12.5 mg Insulin Human Regular (Humulin R) 0 units SC ACCU-CHECK [facility] PRN Reason: Protocol Last Admin: 11/02/17 12:13 Dose: 1 unit Lidocaine HCl (Xylocaine 2%) 1 applic TOP [facility] Last Admin: 11/01/17 23:43 Dose: 1 applic - Labs Labs: 11/01/17 15:50 11/01/17 15:50 PT 12.8 Seconds (9.8-13.1) 11/01/17 15:50 INR 1.2 (0.9-1.2) 11/01/17 15:50 - Constitutional Appears: No Acute Distress - Head Exam Head Exam: absent: ATRAUMATIC, NORMAL INSPECTION - Eye Exam Eye Exam: EOMI - ENT Exam ENT Exam: Mucous Membranes Moist - Neck Exam Neck Exam: Full ROM - Respiratory Exam Respiratory Exam: Clear to Ausculation Bilateral, NORMAL BREATHING PATTERN - Cardiovascular Exam Cardiovascular Exam: REGULAR RHYTHM - GI/Abdominal Exam GI & Abdominal Exam: Soft, Normal Bowel Sounds. absent: Distended, Guarding, Rigid, Tenderness - Neurological Exam Neurological Exam: Alert, Awake, Oriented x3 - Psychiatric Exam Psychiatric exam: Normal Mood Assessment and Plan - Assessment and Plan (Free Text) Assessment: 77 y/o M with PMhx of MDS admitted for severe thrombocytopenia. Pancytopenia -Secondary to myelodysplatic syndrome -Platelets =6.+ petechiae and ecchymosis -Hgb 7.4 -2 PRBC's and 1 Platelets tranfusion -Hem-Onc, Dr Pace, on board. -C/W Ferrous Sulfate PO -Hold Pletal for now -F/U CBC to be drawn at 3 pm, after blood transfusion ends. Myelodysplastic syndrome -Chronic -Bone marrow biopsy done on 09/04/17 reported findings suggestive of myelodysplasia. -F/U hemo-oncology recommendations -Needs assistance for insurance approval. It is very important that chemotherapy begins. CKD stage 3 B -Stable -Monitor BMP after transfusion HTN -Chronic -Stable -C/W Home meds: HCTZ 12.5mg daily DM type 2 Last HbA1c 6.6 Controlled by diet ISS low dose R toe pain - most probably hematoma -Evaluated by podiatry a month ago: NO suspicious for osteomyelitis, necrosis or fracture. -X-rays and b/l leg duplex US have been unremarkable. -Lidocaine 2% topical HS. Prophylaxis -SCDs -Hold Lovenox due to thrombocytopenia
--- NOTE | 2017-11-02 13:08 | CP.PCM.PN ---
Subjective - Date & Time of Evaluation Date of Evaluation: 11/02/17 Time of Evaluation: 11:30 - Subjective Subjective: Feeling better after transfusions. Objective - Vital Signs/Intake and Output Vital Signs (last 24 hours): Temp Pulse Resp BP Pulse Ox 98.2 F 67 18 145/67 99 11/02/17 08:13 11/02/17 08:13 11/02/17 08:13 11/02/17 08:13 11/02/17 10:11 - Medications Medications: Current Medications Acetaminophen (Tylenol 325mg Tab) 650 mg PO Q6 PRN PRN Reason: Pain, Mild (1-3) Dextrose (Dextrose 50% Inj) 0 ml IV STAT PRN; Protocol PRN Reason: Hypoglycemia Protocol Dextrose (Glutose 15) 0 gm PO ONCE PRN; Protocol PRN Reason: Hypoglycemia Protocol Ferrous Sulfate (Feosol) [address] [facility] Last Admin: 11/02/17 12:14 Dose: 325 mg Glucagon (Glucagen Diagnostic Kit) 0 mg IM STAT PRN; Protocol PRN Reason: Hypoglycemia Protocol Hydrochlorothiazide (Microzide) 12.[address] [facility] Last Admin: 11/02/17 08:11 Dose: 12.5 mg Insulin Human Regular (Humulin R) 0 units SC ACCU-CHECK [place] PRN Reason: Protocol Last Admin: 11/02/17 12:13 Dose: 1 unit Lidocaine HCl (Xylocaine 2%) 1 applic [facility] Last Admin: 11/01/17 23:43 Dose: 1 applic - Labs Labs: 11/01/17 15:50 11/01/17 15:50 PT 12.8 Seconds (9.8-13.1) 11/01/17 15:50 INR 1.2 (0.9-1.2) 11/01/17 15:50 - Head Exam Head Exam: ATRAUMATIC - Eye Exam Eye Exam: Normal appearance - ENT Exam ENT Exam: Mucous Membranes Dry - Respiratory Exam Respiratory Exam: NORMAL BREATHING PATTERN - Cardiovascular Exam Cardiovascular Exam: +S1, +S2 - GI/Abdominal Exam GI & Abdominal Exam: Normal Bowel Sounds Assessment and Plan (1) Pancytopenia Assessment & Plan: secondary to MDS s/p 2U PRBC and 1 bag platelets Status: Acute (2) Myelodysplasia (myelodysplastic syndrome) Assessment & Plan: s/p procrit transfusion support outpatient treatment; needs social work assistance with HMO Status: Acute
[2017-11-02 15:30] LABS: HEMOGLOBIN 9.5 g/dL (12.0-18.0); MEAN CELL VOLUME 84.1 fl (80.0-94.0); MEAN CORPUSCULAR HEMOGLOBIN 28.8 pg (27.0-31.0); MEAN CORPUSCULAR HGB CONC 34.2 g/dL (33.0-37.0); RBC 3.32 Mil/uL (4.40-5.90); RED CELL DISTRIBUTION WIDTH 15.8 % (11.5-14.5); WHITE BLOOD COUNT 2.3 K/uL (4.8-10.8)
[2017-11-02] MEDS: Lidocaine 2% GEL TOP SCH (22:24)
--- NOTE | 2017-11-03 07:08 | CP.PCM.PN ---
Subjective - Date & Time of Evaluation Date of Evaluation: 11/03/17 Time of Evaluation: 07:07 - Subjective Subjective: 77 y/o M evaluated and examined by bedside. pt reports b/l leg pain has improved after blood transfusion. Pt c/o low back pain, 9/10 intensity, intermittent, for several months. Pt concerned about his insurance status. Pt afebrile, tolerating PO, able to stand up and walk to bathroom. Objective - Vital Signs/Intake and Output Vital Signs (last 24 hours): Temp Pulse Resp BP Pulse Ox 98.3 F 80 19 168/75 H 99 11/03/17 01:00 11/03/17 01:00 11/03/17 01:00 11/03/17 01:00 11/03/17 01:00 - Medications Medications: Current Medications Acetaminophen (Tylenol 325mg Tab) 650 mg PO Q6 PRN PRN Reason: Pain, Mild (1-3) Dextrose (Dextrose 50% Inj) 0 ml IV STAT PRN; Protocol PRN Reason: Hypoglycemia Protocol Dextrose (Glutose 15) 0 gm PO ONCE PRN; Protocol PRN Reason: Hypoglycemia Protocol Ferrous Sulfate (Feosol) 325 mg PO TID [facility] Last Admin: 11/02/17 17:05 Dose: 325 mg Glucagon (Glucagen Diagnostic Kit) 0 mg IM STAT PRN; Protocol PRN Reason: Hypoglycemia Protocol Hydrochlorothiazide (Microzide) 12.5 mg PO DAILY [facility] Last Admin: 11/02/17 08:11 Dose: 12.5 mg Insulin Human Regular (Humulin R) 0 units SC ACCU-CHECK [facility] PRN Reason: Protocol Last Admin: 11/02/17 22:11 Dose: Not Given Lidocaine HCl (Xylocaine 2%) 1 applic TOP [facility] Last Admin: 11/02/17 22:24 Dose: 1 applic - Labs Labs: 11/02/17 15:06 11/01/17 15:50 PT 12.8 Seconds (9.8-13.1) 11/01/17 15:50 INR 1.2 (0.9-1.2) 11/01/17 15:50 - Constitutional Appears: No Acute Distress, Chronically Ill - Eye Exam Eye Exam: EOMI - ENT Exam ENT Exam: Mucous Membranes Moist - Neck Exam Neck Exam: Full ROM - Respiratory Exam Respiratory Exam: Clear to Ausculation Bilateral, NORMAL BREATHING PATTERN - Cardiovascular Exam Cardiovascular Exam: +S1, +S2 - GI/Abdominal Exam GI & Abdominal Exam: Soft, Normal Bowel Sounds. absent: Firm, Guarding, Tenderness - Extremities Exam Extremities Exam: Full ROM, Tenderness. absent: Calf Tenderness, Joint Swelling , Pedal Edema Additional comments: B/L leg: Strength 4/5 b/l, SILT b/l. - Back Exam Back Exam: paraspinal tenderness (lumbar and sacral.) - Neurological Exam Neurological Exam: Alert, Awake, Oriented x3 Assessment and Plan - Assessment and Plan (Free Text) Assessment: 77 y/o M with PMhx of MDS admitted for severe thrombocytopenia. Pancytopenia -Secondary to myelodysplatic syndrome -Platelets =6.+ petechiae and ecchymosis -Hgb 7.4 -2 PRBC's and 1 Platelets tranfusion -Hem-Onc, Dr Pace, on board. -C/W Ferrous Sulfate PO -Hold Pletal for now -F/U CBC to be drawn at 3 pm, after blood transfusion ends. Myelodysplastic syndrome -Chronic -Bone marrow biopsy done on 09/04/17 reported findings suggestive of myelodysplasia. -F/U hemo-oncology recommendations -Needs assistance for insurance approval. It is very important that chemotherapy begins. CKD stage 3 B -Stable -Monitor BMP after transfusion HTN -Chronic -Stable -C/W Home meds: HCTZ 12.5mg daily DM type 2 Last HbA1c 6.6 Controlled by diet ISS low dose R toe pain - most probably hematoma -Evaluated by podiatry a month ago: NO suspicious for osteomyelitis, necrosis or fracture. -X-rays and b/l leg duplex US have been unremarkable. -Lidocaine 2% topical HS. Prophylaxis -SCDs -Hold Lovenox due to thrombocytopenia
[2017-11-03] MEDS: Insulin Regular 100 units/ml SC SCH ×2 (08:35→12:57)
[2017-11-03 08:51] LABS: MEAN CELL VOLUME 83.8 fl (80.0-94.0); MEAN CORPUSCULAR HEMOGLOBIN 29.2 pg (27.0-31.0); MEAN CORPUSCULAR HGB CONC 34.9 g/dL (33.0-37.0); RBC 3.75 Mil/uL (4.40-5.90); RED CELL DISTRIBUTION WIDTH 15.8 % (11.5-14.5); WHITE BLOOD COUNT 2.5 K/uL (4.8-10.8)
[2017-11-03] MEDS ORDERED: Lidocaine 5% Patch TD SCH (09:00)
[2017-11-03 09:06] VITALS: BP 165/75; PULSE 79; RESP 20; TEMP 98.7; O2SAT 98
--- NOTE | 2017-11-03 10:58 | CP.PCM.DIS ---
Provider - Provider Date of Admission: 11/01/17 17:19 Attending physician: Karina Luevano MD Primary care physician: [facility]. Consults: Hematology/oncology: Dr Pace. Time Spent in preparation of Discharge (in minutes): 30 Diagnosis - Discharge Diagnosis (1) Thrombocytopenia Status: Acute Comment: -Pt will f/u with lens coater Dr Pace in 7 days. (2) Myelodysplasia (myelodysplastic syndrome) Status: Acute Comment: -Chemotherapy needs to be initiated. Insurance arrangement has to be completed. Hospital Course - Lab Results Lab Results: Most Recent Lab Values WBC 2.5 K/uL (4.8-10.8) L 11/03/17 08:35 RBC 3.75 Mil/uL (4.40-5.90) L 11/03/17 08:35 Hgb 11.0 g/dL (12.0-18.0) L 11/03/17 08:35 Hct 31.4 % (35.0-51.0) L 11/03/17 08:35 MCV 83.8 fl (80.0-94.0) 11/03/17 08:35 MCH 29.2 pg (27.0-31.0) 11/03/17 08:35 MCHC 34.9 g/dL (33.0-37.0) 11/03/17 08:35 RDW 15.8 % (11.5-14.5) H 11/03/17 08:35 Plt Count 59 K/uL (130-400) L 11/03/17 08:35 MPV 11.7 fl (7.2-11.7) 11/01/17 15:50 Neut % (Auto) 29.6 % (50.0-75.0) L 11/01/17 15:50 Lymph % (Auto) 49.6 % (20.0-40.0) H 11/01/17 15:50 [place] % (Auto) 18.7 % (0.0-10.0) H 11/01/17 15:50 Eos % (Auto) 1.2 % (0.0-4.0) 11/01/17 15:50 Baso % (Auto) 0.9 % (0.0-2.0) 11/01/17 15:50 Neut # (Auto) 0.8 K/uL (1.8-7.0) L 11/01/17 15:50 Lymph # (Auto) 1.3 K/uL (1.0-4.3) 11/01/17 15:50 [place] # (Auto) 0.5 K/uL (0.0-0.8) 11/01/17 15:50 Eos # (Auto) 0.0 K/uL (0.0-0.7) 11/01/17 15:50 Baso # (Auto) 0.0 K/uL (0.0-0.2) 11/01/17 15:50 PT 12.8 Seconds (9.8-13.1) 11/01/17 15:50 INR 1.2 (0.9-1.2) 11/01/17 15:50 Sodium 140 mmol/l (132-148) 11/01/17 15:50 Potassium 4.3 MMOL/L (3.6-5.0) 11/01/17 15:50 Chloride 104 mmol/L (98-107) 11/01/17 15:50 Carbon Dioxide 21 mmol/L (22-30) L 11/01/17 15:50 Anion Gap 19 (10-20) 11/01/17 15:50 BUN 54 mg/dl (9-20) H 11/01/17 15:50 Creatinine 2.1 mg/dl (0.8-1.5) H 11/01/17 15:50 Est GFR ( Amer) 37 11/01/17 15:50 Est GFR (Non-Af Amer) 31 11/01/17 15:50 POC Glucose (mg/dL) 84 mg/dL (65-110) 11/03/17 05:16 Random Glucose 213 mg/dL (75-110) H 11/01/17 15:50 Calcium 8.6 mg/dL (8.4-10.2) 11/01/17 15:50 Phosphorus 3.3 mg/dl (2.5-4.5) 11/01/17 15:50 Magnesium 1.7 MG/DL (1.6-2.3) 11/01/17 15:50 Total Bilirubin 0.4 mg/dl (0.2-1.3) 11/01/17 15:50 AST 17 U/L (17-59) D 05/09/18 15:50 ALT 35 U/L (21-72) 11/01/17 15:50 Alkaline Phosphatase 80 U/L (38-126) 11/01/17 15:50 Total Protein 7.1 G/DL (6.3-8.2) 11/01/17 15:50 Albumin 3.2 g/dL (3.5-5.0) L 11/01/17 15:50 Globulin 3.9 gm/dL (2.2-3.9) 11/01/17 15:50 Albumin/Globulin Ratio 0.8 (1.0-2.1) L 11/01/17 15:50 Blood Type O POSITIVE 11/01/17 15:50 Antibody Screen Negative 11/01/17 15:50 Crossmatch See Detail 11/01/17 15:50 BBK History Checked Patient has bt 11/01/17 15:50 - Hospital Course Hospital Course: 77 y/o M, with pMHx of MDS, pancitopenia, DM2, HTN admitted for management of thrombocytopenia (Plt count of 6). Pt received blood transfusion, 2 PRBC's and 1 platelet bag. Pt remained hemodynamically stable, b/l leg pain improved and tolerating PO. Pt discharge with instruction to f/u with Dr Guan on 11/10/[address] Brown on 11/14/17. - Date & Time of H&P Date of H&P: 11/01/17 Time of H&P: 17:58 Discharge Exam - Head Exam Head Exam: ATRAUMATIC. absent: NORMAL INSPECTION - Eye Exam Eye Exam: EOMI, Normal appearance - ENT Exam ENT Exam: Mucous Membranes Moist - Neck Exam Neck exam: Full Rom - Respiratory Exam Respiratory Exam: Clear to PA & Lateral, UNREMARKABLE - Cardiovascular Exam Cardiovascular Exam: +S1, +S2 - GI/Abdominal Exam GI & Abdominal Exam: Distended, Normal Bowel Sounds, Soft, Unremarkable. absent : Guarding, Hernia - Extremities Exam Extremities exam: full ROM - Neurological Exam Neurological exam: Alert, Oriented x3 - Psychiatric Exam Psychiatric exam: Normal Mood Discharge Plan - Discharge Medications Prescriptions: Lidocaine 5% [Lidoderm] 1 ea TD DAILY #30 patch - Follow Up Plan Condition: STABLE Disposition: HOME/ ROUTINE Instructions: Myelodysplastic Syndromes (DC) Additional Instructions: -Por favor ir con Dr. Pace el siguiente viernes, [address] Pace tiene conocimiento de que Ud asistira a tyson oficina. -Dr Pace va a repetir estudios de bunny, (plaquetas). -Jimena con PCP, Dr Brown, el 22 de downing a las 3:20pm -Ir al salon de emergencias, si tiene dolor intolerable, fiebre, extrema debilidad, etc. Referrals: [facility] [Outside] Ty Pace MD [Staff Provider] - Jake Brown MD [Family Provider] -
--- NOTE | 2017-11-03 13:16 | CP.PCM.PN ---
Subjective - Date & Time of Evaluation Date of Evaluation: 11/03/17 Time of Evaluation: 10:00 - Subjective Subjective: Feeling better. Objective - Vital Signs/Intake and Output Vital Signs (last 24 hours): Temp Pulse Resp BP Pulse Ox 98.7 F 79 20 165/75 H 98 11/03/17 09:00 11/03/17 09:00 11/03/17 09:00 11/03/17 09:00 11/03/17 09:00 - Medications Medications: Current Medications Acetaminophen (Tylenol 325mg Tab) 650 mg PO Q6 PRN PRN Reason: Pain, Mild (1-3) Dextrose (Dextrose 50% Inj) 0 ml IV STAT PRN; Protocol PRN Reason: Hypoglycemia Protocol Dextrose (Glutose 15) 0 gm PO ONCE PRN; Protocol PRN Reason: Hypoglycemia Protocol Ferrous Sulfate (Feosol) 325 mg PO TID [facility] Last Admin: 11/03/17 12:55 Dose: 325 mg Glucagon (Glucagen Diagnostic Kit) 0 mg IM STAT PRN; Protocol PRN Reason: Hypoglycemia Protocol Hydrochlorothiazide (Microzide) 12.5 mg PO DAILY [facility] Last Admin: 11/03/17 08:34 Dose: 12.5 mg Insulin Human Regular (Humulin R) 0 units SC ACCU-CHECK [place] PRN Reason: Protocol Last Admin: 11/03/17 12:57 Dose: Not Given Lidocaine (Lidoderm) 1 ea TD DAILY [facility] Last Admin: 11/03/17 12:56 Dose: 1 ea Lidocaine HCl (Xylocaine 2%) 1 applic TOP [facility] Last Admin: 11/02/17 22:24 Dose: 1 applic - Labs Labs: 11/03/17 08:35 11/01/17 15:50 PT 12.8 Seconds (9.8-13.1) 11/01/17 15:50 INR 1.2 (0.9-1.2) 11/01/17 15:50 - Head Exam Head Exam: ATRAUMATIC - Eye Exam Eye Exam: Normal appearance - ENT Exam ENT Exam: Mucous Membranes Dry - Respiratory Exam Respiratory Exam: NORMAL BREATHING PATTERN - Cardiovascular Exam Cardiovascular Exam: +S1, +S2 - GI/Abdominal Exam GI & Abdominal Exam: Normal Bowel Sounds Assessment and Plan (1) Pancytopenia Assessment & Plan: secondary to MDS s/p 2U PRBC and 1 bag platelets Status: Acute (2) Myelodysplasia (myelodysplastic syndrome) Assessment & Plan: s/p procrit transfusion support outpatient treatment; needs social work assistance with HMO Status: Acute
== END 2017-11-03 14:57 | disposition home or self-care (01) | DRG 395 ==
LOC: H.ER 14:15 → H.ERHOLD 17:19 → H.MEDSURG1 19:28
PROVIDERS: ADMIT Family Medicine Geriatric Medicine; ATTEND Family Medicine Geriatric Medicine
PROC: 30233N1 Transfusion of Nonautologous Red Blood Cells into Peripheral Vein, Percutaneous Approach (ICD-10-PCS; principal; 2017-11-02)
DX: D46.9 Myelodysplastic syndrome, unspecified (principal); D61.818 Other pancytopenia; D69.59 Other secondary thrombocytopenia; N18.3 Chronic kidney disease, stage 3 (moderate); E11.22 Type 2 diabetes mellitus with diabetic chronic kidney disease; I12.9 Hypertensive chronic kidney disease with stage 1 through stage 4 chronic kidney disease, or unspecified chronic kidney disease; E78.00 Pure hypercholesterolemia, unspecified; S90.111A Contusion of right great toe without damage to nail, initial encounter; Z87.442 Personal history of urinary calculi; X58.XXXA Exposure to other specified factors, initial encounter

== ENCOUNTER 2017-11-10 12:55 | Inpatient (IN) | payer MEDICAID ==
[2017-11-10 13:23] VITALS: BMI 21.9
[2017-11-10 14:37] LABS: INR 1.1 (0.9-1.2); PARTIAL THROMBOPLASTIN TIME 32.3 Seconds (25.6-37.1); PROTHROMBIN TIME 12.1 Seconds (9.8-13.1)
[2017-11-10 14:38] LABS: ALB/GLOB RATIO 0.8 (1.0-2.1); ALBUMIN 3.5 g/dL (3.5-5.0); CALCIUM 8.8 mg/dL (8.4-10.2)
[2017-11-10 14:42] LABS: BASO % 0.7 % (0.0-2.0); HEMOGLOBIN 9.6 g/dL (12.0-18.0); LYMPH # 1.2 K/uL (1.0-4.3); LYMPH % 50.8 % (20.0-40.0); MEAN CELL VOLUME 83.9 fl (80.0-94.0); MEAN CORPUSCULAR HEMOGLOBIN 29.2 pg (27.0-31.0); MEAN CORPUSCULAR HGB CONC 34.7 g/dL (33.0-37.0); MEAN PLATELET VOLUME 8.8 fl (7.2-11.7); MONO # 0.4 K/uL (0.0-0.8); MONO % 15.3 % (0.0-10.0); NEUT # 0.8 K/uL (1.8-7.0); NEUT % 32.2 % (50.0-75.0); NRBC % 0.4 % (0.0-0.0); RBC 3.31 Mil/uL (4.40-5.90); RED CELL DISTRIBUTION WIDTH 15.7 % (11.5-14.5); WHITE BLOOD COUNT 2.4 K/uL (4.8-10.8)
--- NOTE | 2017-11-10 14:48 | ED PDOC ---
- Laboratory Results Result Diagrams: 11/10/17 14:12 - ECG O2 Sat by Pulse Oximetry: 100 Disposition - Disposition Condition: STABLE
--- NOTE | 2017-11-10 14:54 | ED PDOC ---
HPI: General Adult Time Seen by Provider: 11/10/17 13:31 Chief Complaint (Nursing): Lower Extremity Problem/Injury Chief Complaint (Provider): Bruising, right great toe pain, weakness History Per: Patient History/Exam Limitations: no limitations Onset/Duration Of Symptoms: Other (wound on toe for 6 months) Current Symptoms Are (Timing): Still Present Additional Complaint(s): 77 year old male presented to ED with complaint of bruising around the face, right great toe pain, and weakness. Patient states that yesterday, he felt weak and noticed bruising around the face. He also indicates that he has had bleeding from the gums and has had a wound on the right great toe for 6 months and pain for 1 month but hasn't seen anyone for it. He reports that he has a history of thrombocytopenia and sees Dr. Pace for it. Denied numbness, tingling, CP, and SOB. Of note, he was admitted into this hospital on November 01 and discharged on November 03 which is when he had a platelet transfusion. PCP: none provided Past Medical History Reviewed: Historical Data, Nursing Documentation, Vital Signs Vital Signs: Last Vital Signs Temp 98.0 F 11/10/17 18:40 Pulse 87 11/10/17 18:40 Resp 16 11/10/17 18:40 BP 162/74 H 11/10/17 18:40 Pulse Ox 100 11/10/17 18:40 - Medical History PMH: Anemia, Diabetes, HTN, Hypercholesterolemia, Hyperlipidemia, Kidney Stones , Chronic Kidney Disease Denies: HIV Other PMH: thrombocytopenia - Surgical History Surgical History: No Surg Hx - Family History Family History: States: Unknown Family Hx - Social History Current smoker - smoking cessation education provided: No Ex-Smoker (has not smoked in the last 12 months): No Drugs: Denies - Home Medications Home Medications: Ambulatory Orders Medication Instructions Recorded Acetaminophen [Tylenol 325mg tab] 325 mg PO Q6 PRN #30 tab 10/18/17 hydroCHLOROthiazide [Microzide] 12.5 mg PO DAILY #30 cap 10/18/17 Cilostazol [Pletal] 100 mg PO DAILY #30 tab 10/25/17 Ferrous Sulfate [Feosol] 325 mg PO TID 11/01/17 Lidocaine 5% 1 appl TOP HS 11/01/17 Lidocaine 2% [Xylocaine 2%] 1 applic TOP HS tube 11/03/17 - Allergies Allergies/Adverse Reactions: Allergies Allergy/AdvReac Type Severity Reaction Status Date / Time No Known Allergies Allergy Verified 10/09/17 18:50 Review of Systems ROS Statement: Except As Marked, All Systems Reviewed And Found Negative Constitutional: Positive for: Weakness, Other (bruising around the face). Negative for: Fever ENT: Positive for: Other (Gum bleeding) Cardiovascular: Negative for: Chest Pain Respiratory: Negative for: Shortness of Breath Musculoskeletal: Positive for: Other (Right great toe pain) Neurological: Negative for: Numbness, Other (tingling) Physical Exam - Reviewed Nursing Documentation Reviewed: Yes Vital Signs Reviewed: Yes - Physical Exam Appears: Positive for: Non-toxic, No Acute Distress Head Exam: Positive for: ATRAUMATIC, NORMAL INSPECTION, NORMOCEPHALIC Skin: Positive for: Warm. Negative for: Normal Color (on face, scattered petequia) Eye Exam: Positive for: EOMI, Normal appearance, PERRL ENT: Positive for: Normal ENT Inspection, Other (dry blood noted in gums, no active bleeding) Neck: Positive for: Normal, Painless ROM Cardiovascular/Chest: Positive for: Regular Rate, Rhythm Respiratory: Positive for: CNT, Normal Breath Sounds Pulses-Dorsalis Pedis (R): 2+ Gastrointestinal/Abdominal: Positive for: Normal Exam, Soft Back: Positive for: Normal Inspection Extremity: Positive for: Normal ROM, Other (Right great toe ecchymotic with questionable abrasion) Neurologic/Psych: Positive for: Alert, Oriented - Laboratory Results Result Diagrams: 11/10/17 14:12 11/10/17 14:12 - ECG O2 Sat by Pulse Oximetry: 100 (RA) Pulse Ox Interpretation: Normal Medical Decision Making Medical Decision Making: Initial Impression: bruising, right great toe pain, weakness Initial Plan: Plateletpheresis Type and screen ECG X-ray right great toe Case d/w Dr. Pace, telesales team leader, who requests pt. to have 1 platelet transfusion. Case d/w Mi, podiatry resident, who spoke with Dr. Fletcher who has seen pt. in the past and states pt. does not require antibiotics at this time for the chronic wound on his toe. Case d/w Dr. Longo and arrangements made for admission. Platelet transfusion ordered. Scribe Attestation: Documented by Robert Beckford acting as a scribe for Rafael Hamilton Provider Scribe Attestation: All medical record entries made by the Scribe were at my direction and personally dictated by me. I have reviewed the chart and agree that the record accurately reflects my personal performance of the history, physical exam, medical decision making, and the department course for this patient. I have also personally directed, reviewed, and agree with the discharge instructions and disposition. Disposition - Clinical Impression Clinical Impression: Thrombocytopenia, Chronic wound of extremity - Patient ED Disposition Is Patient to be Admitted: No - Disposition Disposition Time: 15:24 Condition: STABLE
--- NOTE | 2017-11-10 16:01 | CP.PCM.CON ---
History of Present Illness - History of Present Illness History of Present Illness: Podiatry - Dr. Fletcher 77M with PMHx IDDM2, Myelodysplastic syndrome, HTN seen in ED regarding right great toe pain. Brother present at bedside. Of note, patient was seen 10/17/17 while in house for the same problem. Patient reports pain in right great toe, ongoing for 4 months. Patient reports pain worsened with ambulation and pressure. Denies any trauma. Patient denies any new problems though states his toe has not improved since he was last seen by podiatry. Patient admits to minimal ambulation. Denies N/V/F/D/C/SOB/PANIAGUA/dizziness. Offers no other pedal complaints. Review of Systems - Review of Systems All systems: reviewed and no additional remarkable complaints except (as per HPI ) Past Patient History - Infectious Disease Hx of Infectious Diseases: None - Past Medical History & Family History Past Medical History?: Yes - Past Social History Drugs: Denies - CARDIAC Hx Hypercholesterolemia: Yes Hx Hypertension: Yes - PULMONARY Hx Respiratory Disorders: No - NEUROLOGICAL Hx Neurological Disorder: No - HEENT Hx HEENT Problems: No - RENAL Hx Chronic Kidney Disease: Yes Hx Kidney Stones: Yes - ENDOCRINE/METABOLIC Hx Endocrine Disorders: Yes Hx Diabetes Mellitus Type 2: Yes - HEMATOLOGICAL/ONCOLOGICAL Hx Anemia: Yes Hx Human Immunodeficiency Virus (HIV): No - INTEGUMENTARY Hx Dermatological Problems: No - MUSCULOSKELETAL/RHEUMATOLOGICAL Hx Musculoskeletal Disorders: No - GASTROINTESTINAL Hx Gastrointestinal Disorders: No - GENITOURINARY/GYNECOLOGICAL Hx Genitourinary Disorders: No - PSYCHIATRIC Hx Psychophysiologic Disorder: No Hx Substance Use: No - SURGICAL HISTORY Hx Surgeries: Yes Other/Comment: Bunion - ANESTHESIA Hx Anesthesia: Yes Hx Anesthesia Reactions: No Hx Malignant Hyperthermia: No Meds Allergies/Adverse Reactions: Allergies Allergy/AdvReac Type Severity Reaction Status Date / Time No Known Allergies Allergy Verified 10/09/17 18:50 Physical Exam - Constitutional Appears: Well, No Acute Distress, Chronically Ill - Extremities Exam Additional comments: RLE focused exam: Vasc: DP/PT pulses faintly palpable 1/4. Skin temperature warm to warm from proximal to distal, though noted to have decrease in temperature to right hallux. CFT < 3 seconds to all digits. No edema noted Neuro: Epicritic and protective sensation grossly intact. Derm: Dark, ecchymotic soft tissue changes appreciated at distal tuft of right hallux consistent with deep tissue injury. Petechiae noted throughout lower leg. MSK: Severe POP to distal tuft of right hallux. Bony prominence noted to dorsomedial aspect of patient's R first MTPJ with limited ROM at that joint - Neurological Exam Neurological exam: Alert, Oriented x3 - Psychiatric Exam Psychiatric exam: Normal Affect, Normal Mood Results - Vital Signs Recent Vital Signs: Last Vital Signs Temp 97.0 F L 11/10/17 13:23 Pulse 87 11/10/17 13:23 Resp 16 11/10/17 13:23 BP 160/76 H 11/10/17 13:23 Pulse Ox 100 11/10/17 15:08 - Labs Result Diagrams: 11/10/17 14:12 11/10/17 14:12 Labs: Laboratory Results - last 24 hr 11/10/17 11/10/17 11/10/17 14:00 14:12 14:12 WBC 2.4 L RBC 3.31 L Hgb 9.6 L Hct 27.8 L MCV 83.9 MCH 29.2 MCHC 34.7 RDW 15.7 H Plt Count 13 L* D MPV 8.8 Neut % (Auto) 32.2 L Lymph % (Auto) 50.8 H [place] % (Auto) 15.3 H Eos % (Auto) 1.0 Baso % (Auto) 0.7 Neut # (Auto) 0.8 L Lymph # (Auto) 1.2 [place] # (Auto) 0.4 Eos # (Auto) 0.0 Baso # (Auto) 0.0 PT INR APTT Sodium 140 Potassium 3.9 Chloride 104 Carbon Dioxide 19 L Anion Gap 21 H BUN 63 H Creatinine 2.3 H Est GFR ( Amer) 33 Est GFR (Non-Af Amer) 28 Random Glucose 278 H Calcium 8.8 Total Bilirubin 0.4 AST 21 ALT 37 Alkaline Phosphatase 108 Total Protein 7.7 Albumin 3.5 Globulin 4.2 H Albumin/Globulin Ratio 0.8 L BBK History Checked Patient has bt 11/10/17 14:12 WBC RBC Hgb Hct MCV MCH MCHC RDW Plt Count MPV Neut % (Auto) Lymph % (Auto) [place] % (Auto) Eos % (Auto) Baso % (Auto) Neut # (Auto) Lymph # (Auto) [place] # (Auto) Eos # (Auto) Baso # (Auto) PT 12.1 INR 1.1 APTT 32.3 Sodium Potassium Chloride Carbon Dioxide Anion Gap BUN Creatinine Est GFR ( Amer) Est GFR (Non-Af Amer) Random Glucose Calcium Total Bilirubin AST ALT Alkaline Phosphatase Total Protein Albumin Globulin Albumin/Globulin Ratio BBK History Checked Assessment & Plan - Assessment and Plan (Free Text) Assessment: 77 year old male with deep tissue injury of right distal hallux most likely secondary to 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 Fletcher Right foot XR reviewed: severe degenerate changes of 1st MPJ Physical therapy ordered - gait training, conditioning Patient informed on the probable cause of this etiology and advised to avoid excessive weight bearing to that area of his foot Santyl ordered for QD dressing changes Podiatry will continue to follow
--- NOTE | 2017-11-10 16:10 | CP.PCM.HP ---
History of Present Illness - History of Present Illness History of Present Illness: 77 yo M with a PMHx of Myelodysplastic Syndrome, Pancytopenia, CKD, HTN, DM with recent platelet transfusion over that past few weeks presented to ED c/o b/ l lower leg petechia and purpura that was noticed yesterday afternoon. Pt reports fatigue, generalized weakness and aggravating R 1st toe pain and edema. On labplaboratory work-up, thrombocytopenia was noted. Pt denies fever, chills. chest pain, SOB, nausea, change in bowel movement or peripheral edema. PMD: [facility] Hemo-Onc: Dr Katelynn TAM Home meds: >Cilostazol 100 mg PO Daily >Feosol 325 mg PO TID >HCTZ 12.5 mg PO daily >Lidocaine 2% cream PMHx: diet-controlled DM2, HTN, Myelodysplastic Syndrome, Pancytopenia, CKD. PSHx: L foot bunion FHx: mom w/ bone cancer, other family members w/ DM2 SHx: denies smoking now and in the past, denies alcohol use, denies drug use Next of kin: Ottoniel Diaz (son) [phone] Code status: full code ED Course: --CBC showed Pancytopenia (Plt count 13; Hgb 9.6; WBC 2.4). --CMP remarkable for acute kidney injury: BUN/Creat 63/2.3 --Coags WNL. --XR R foot: severe degenerative change of the 1st metatarsophalangeal joint. = > Podiatry was consulted. --Platelepheresis ordered. Present on Admission - Present on Admission Any Indicators Present on Admission: No Review of Systems - Constitutional Constitutional: Weakness. absent: Chills, Fever - EENT Eyes: absent: Change in Vision - Cardiovascular Cardiovascular: absent: Chest Pain, Dyspnea, Edema - Respiratory Respiratory: absent: Cough, Dyspnea, Chest Congestion - Genitourinary Genitourinary: absent: Change in Urinary Stream, Dysuria, Bladder Distension - Psychiatric Psychiatric: absent: Confusion, Visual Hallucinations - Endocrine Endocrine: Fatigue. absent: Deepening of Voice, Excessive Sweating Past Patient History - Infectious Disease Hx of Infectious Diseases: None - Past Medical History & Family History Past Medical History?: Yes - Past Social History Drugs: Denies - CARDIAC Hx Hypercholesterolemia: Yes Hx Hypertension: Yes - PULMONARY Hx Respiratory Disorders: No - NEUROLOGICAL Hx Neurological Disorder: No - HEENT Hx HEENT Problems: No - RENAL Hx Chronic Kidney Disease: Yes Hx Kidney Stones: Yes - ENDOCRINE/METABOLIC Hx Endocrine Disorders: Yes Hx Diabetes Mellitus Type 2: Yes - HEMATOLOGICAL/ONCOLOGICAL Hx Anemia: Yes Hx Human Immunodeficiency Virus (HIV): No - INTEGUMENTARY Hx Dermatological Problems: No - MUSCULOSKELETAL/RHEUMATOLOGICAL Hx Musculoskeletal Disorders: No - GASTROINTESTINAL Hx Gastrointestinal Disorders: No - GENITOURINARY/GYNECOLOGICAL Hx Genitourinary Disorders: No - PSYCHIATRIC Hx Psychophysiologic Disorder: No Hx Substance Use: No - SURGICAL HISTORY Hx Surgeries: Yes Other/Comment: Bunion - ANESTHESIA Hx Anesthesia: Yes Hx Anesthesia Reactions: No Hx Malignant Hyperthermia: No Meds Allergies/Adverse Reactions: Allergies Allergy/AdvReac Type Severity Reaction Status Date / Time No Known Allergies Allergy Verified 10/09/17 18:50 Physical Exam - Constitutional Appears: No Acute Distress, Chronically Ill - Head Exam Additional comments: Presence of scattered petechia on face and head. - Eye Exam Eye Exam: EOMI, PERRL - ENT Exam ENT Exam: Mucous Membranes Moist Additional comments: Presence of gingival bleeding and small lesions on mucosa. - Neck Exam Neck exam: Positive for: Full Rom, Normal Inspection. Negative for: Lymphadenopathy - Respiratory Exam Respiratory Exam: Clear to Auscultation Bilateral, NORMAL BREATHING PATTERN - Cardiovascular Exam Cardiovascular Exam: +S1, +S2, Systolic Murmur - GI/Abdominal Exam GI & Abdominal Exam: Normal Bowel Sounds, Soft. absent: Distended, Guarding, Rigid, Tenderness - Extremities Exam Extremities exam: Positive for: full ROM. Negative for: calf tenderness Additional comments: -Lower b/l legs: presence of petechia and purpura from toes to below knee level. ROM nL, strength 5/5, SILT. -R 1st toe: presence of ~2cm darkened swelling, very tender to palpation. Results - Vital Signs Recent Vital Signs: Last Vital Signs Temp 97.0 F L 11/10/17 13:23 Pulse 87 11/10/17 13:23 Resp 16 11/10/17 13:23 BP 160/76 H 11/10/17 13:23 Pulse Ox 100 11/10/17 15:08 - Labs Result Diagrams: 11/10/17 14:12 11/10/17 14:12 Labs: Laboratory Results - last 24 hr 11/10/17 11/10/17 11/10/17 14:00 14:12 14:12 WBC 2.4 L RBC 3.31 L Hgb 9.6 L Hct 27.8 L MCV 83.9 MCH 29.2 MCHC 34.7 RDW 15.7 H Plt Count 13 L* D MPV 8.8 Neut % (Auto) 32.2 L Lymph % (Auto) 50.8 H [place] % (Auto) 15.3 H Eos % (Auto) 1.0 Baso % (Auto) 0.7 Neut # (Auto) 0.8 L Lymph # (Auto) 1.2 [place] # (Auto) 0.4 Eos # (Auto) 0.0 Baso # (Auto) 0.0 PT INR APTT Sodium 140 Potassium 3.9 Chloride 104 Carbon Dioxide 19 L Anion Gap 21 H BUN 63 H Creatinine 2.3 H Est GFR ( Amer) 33 Est GFR (Non-Af Amer) 28 Random Glucose 278 H Calcium 8.8 Total Bilirubin 0.4 AST 21 ALT 37 Alkaline Phosphatase 108 Total Protein 7.7 Albumin 3.5 Globulin 4.2 H Albumin/Globulin Ratio 0.8 L BBK History Checked Patient has bt 11/10/17 14:12 WBC RBC Hgb Hct MCV MCH MCHC RDW Plt Count MPV Neut % (Auto) Lymph % (Auto) [place] % (Auto) Eos % (Auto) Baso % (Auto) Neut # (Auto) Lymph # (Auto) [place] # (Auto) Eos # (Auto) Baso # (Auto) PT 12.1 INR 1.1 APTT 32.3 Sodium Potassium Chloride Carbon Dioxide Anion Gap BUN Creatinine Est GFR ( Amer) Est GFR (Non-Af Amer) Random Glucose Calcium Total Bilirubin AST ALT Alkaline Phosphatase Total Protein Albumin Globulin Albumin/Globulin Ratio BBK History Checked Assessment & Plan - Assessment and Plan (Free Text) Assessment: 77 y/o M with PMHx of MDS and pancytopenia admitted for severe thrombocytopenia. Thrombocytopenia -Secondary to myelodysplatic syndrome -Presence of petechia, ecchymosis and purpura. -Hem-Oncolgy consult, Dr Pace -Platelets=13. -Plateletpheresis ordered. -Monitor CBC. Myelodysplastic syndrome -Bone marrow biopsy done on 09/04/17 reported findings suggestive of myelodysplasia. -F/U hemo-oncology recommendations -Needs assistance for insurance acquisition, important in order for chemotherapy begins. (instructor ground services unable to help due to coersion risk) Pancytopenia -Due to myelodysplatic syndrome -Hgb 9.6; WBC 2.4 -C/W Ferrous Sulfate PO -Monitor CBC R toe pain -XR R foot: severe degenerative change of the 1st metatarsophalangeal joint. => Podiatry was consulted. -Lidocaine 2% topical HS. -F/U Podiatry recommendations. -Collagenase topical as per podiatry. CKD stage 5 -Acute on Chronic/acute kidney injury -BUN/Cr 63/2.3 -IV NSS bolus and maintenance. -Monitor BMP after transfusion HTN -Chronic -C/W Home meds: HCTZ 12.5mg daily -Monitor BP. DM type 2-Diet controlled -Last HbA1c 6.6 -ISS low dose Prophylaxis -SCDs -Hold Lovenox due to thrombocytopenia - Date & Time Date: 11/10/17 Time: 19:09
--- NOTE | 2017-11-10 16:54 | RAD ---
HISTORY: trauma COMPARISON: No prior FINDINGS: BONES: Normal. No fracture. JOINTS: Severe degenerate change of the 1st metatarsophalangeal joint. SOFT TISSUE: Normal. OTHER FINDINGS: None . IMPRESSION: Severe degenerate change of the 1st metatarsophalangeal joint.
[2017-11-10] MEDS ORDERED: Sodium Chloride 0.9% 1,000 ML IV SCH ×2 (18:30)
[2017-11-10] MEDS ORDERED: Oxycodone/Acetaminophen 5/325 mg Tab PO PRN (19:27)
[2017-11-10] MEDS: Lidocaine 2% GEL TOP SCH (21:41)
[2017-11-10] MEDS ORDERED: Lidocaine 2.5% OINTMENT TOP SCH (22:00)
[2017-11-11] MEDS: Oxycodone/Acetaminophen 5/325 mg Tab PO PRN ×2 (06:45→17:15)
--- NOTE | 2017-11-11 07:17 | CP.PCM.PN ---
Subjective - Date & Time of Evaluation Date of Evaluation: 11/11/17 Time of Evaluation: 08:15 - Subjective Subjective: 77 yo M with a PMHx of MDS, Pancytopenia, CKD, HTN, DM seen and examined at bedside this morning. No acute overnight events. Reports some soreness in his mouth. +right great toe pain. Denies any active bleeding. Denies chest pain, dyspnea, headache, dizziness, nausea, vomiting, abdominal pain, fever or chills. Tolerating PO. Has regular BM and voiding. Objective - Vital Signs/Intake and Output Vital Signs (last 24 hours): Temp Pulse Resp BP Pulse Ox 98.0 F 90 19 166/82 H 99 11/11/17 00:00 11/11/17 00:00 11/11/17 00:00 11/11/17 00:00 11/11/17 00:00 - Medications Medications: Current Medications Acetaminophen (Tylenol 325mg Tab) 325 mg PO Q6 PRN PRN Reason: Pain, Mild (1-3) Cilostazol (Pletal) 100 mg PO DAILY [facility] Collagenase (Santyl) 1 applic TOP DAILY [facility] Ferrous Sulfate (Feosol) 325 mg PO TID [facility] Hydrochlorothiazide (Microzide) 12.5 mg PO DAILY [facility] Sodium Chloride (Sodium Chloride 0.9%) 1,000 mls @ 999 mls/hr IV .Q1H1M [facility] Stop: 11/11/17 18:30 Sodium Chloride (Sodium Chloride 0.9%) 1,000 mls @ 75 mls/hr IV .[id number] [facility] Stop: 11/11/17 18:18 Last Admin: 11/11/17 00:00 Dose: 75 mls/hr Lidocaine HCl (Xylocaine 2%) 1 applic TOP [facility] Last Admin: 11/10/17 21:41 Dose: 1 applic Morphine Sulfate (Morphine) 2 mg IVP Q4 PRN PRN Reason: Pain, severe (8-10) Last Admin: 11/10/17 20:40 Dose: 2 mg Oxycodone/Acetaminophen (Percocet 5/325 Mg Tab) 1 tab PO Q4 PRN PRN Reason: Pain, moderate (4-7) Stop: 11/13/17 19:27 Last Admin: 11/11/17 06:45 Dose: 1 tab - Labs Labs: 11/10/17 14:12 11/10/17 14:12 PT 12.1 Seconds (9.8-13.1) 11/10/17 14:12 INR 1.1 (0.9-1.2) 11/10/17 14:12 APTT 32.3 Seconds (25.6-37.1) 11/10/17 14:12 - Constitutional Appears: Non-toxic, No Acute Distress - Head Exam Additional comments: +petechiae on face and head - Eye Exam Eye Exam: Normal appearance - ENT Exam ENT Exam: Mucous Membranes Moist Additional comments: small right anterolateral tongue lesion and lesion on left buccal area. No active bleeding. - Neck Exam Neck Exam: Normal Inspection - Respiratory Exam Respiratory Exam: Clear to Ausculation Bilateral, NORMAL BREATHING PATTERN. absent: Rales, Rhonchi, Wheezes - Cardiovascular Exam Cardiovascular Exam: REGULAR RHYTHM, RRR, +S1, +S2 - GI/Abdominal Exam GI & Abdominal Exam: Soft, Normal Bowel Sounds. absent: Tenderness - Extremities Exam Additional comments: B/L lower extremities has presence of petechia and purpura from toes to below knee level. no active bleeding or open skin lesion. -Right foot: Right great toe ~2cm darkened swelling, very tender to palpation. No oozing or discharge. - Neurological Exam Neurological Exam: Alert, Awake, Oriented x3 - Psychiatric Exam Psychiatric exam: Normal Affect, Normal Mood - Skin Skin Exam: Petechiae Assessment and Plan - Assessment and Plan (Free Text) Assessment: 77 yo male with a PMHx of MDS, HTN and pancytopenia admitted for severe thrombocytopenia and pancytopenia Thrombocytopenia -s/p plateletpheresis yesterday -Platelet 63 this morning -Secondary to myelodysplatic syndrome -Presence of petechia, ecchymosis and purpura. -Hem-Oncolgy consult, Dr Pace -Monitor CBC. Myelodysplastic syndrome -Bone marrow biopsy done on 09/04/17 reported findings suggestive of myelodysplasia. -F/U hemo-oncology recommendations -Needs assistance for insurance acquisition, important in order for chemotherapy begins. (policy services representative unable to help due to coercion risk) Pancytopenia -Due to myelodysplatic syndrome -ANC:462 -Hgb 9.1; WBC 1.9 -C/W Ferrous Sulfate PO -Monitor CBC Right toe pain -XR R foot: severe degenerative change of the 1st metatarsophalangeal joint. => Podiatry was consulted. -Lidocaine 2% topical HS. -F/U Podiatry recommendations. -Collagenase topical as per podiatry. CKD stage 5 -Acute on Chronic/acute kidney injury -BUN/Cr 63/2.3 on admission -Improving BUN/Cr 50/1.9 today -IV NSS bolus and maintenance. -Monitor BMP after transfusion HTN, uncontrolled -Chronic -Hold Home meds: HCTZ 12.5mg daily -Start 25 mg HCTZ -Monitor BP. DM type 2-Diet controlled -Last HbA1c 6.6 -ISS low dose Prophylaxis -SCDs -Hold Lovenox due to thrombocytopenia
[2017-11-11] MEDS: Cilostazol 100 mg Tab UD PO SCH (08:45)
[2017-11-11] MEDS: Santyl Collagenase OINTMENT TOP SCH (08:48)
[2017-11-11 09:03] LABS: HEMOGLOBIN 9.1 g/dL (12.0-18.0); MEAN CELL VOLUME 83.1 fl (80.0-94.0); MEAN CORPUSCULAR HEMOGLOBIN 29.4 pg (27.0-31.0); MEAN CORPUSCULAR HGB CONC 35.4 g/dL (33.0-37.0); RBC 3.11 Mil/uL (4.40-5.90); RED CELL DISTRIBUTION WIDTH 15.5 % (11.5-14.5)
[2017-11-11 09:21] LABS: CALCIUM 8.6 mg/dL (8.4-10.2)
[2017-11-11 09:40] LABS: WHITE BLOOD COUNT 1.9 K/uL (4.8-10.8)
--- NOTE | 2017-11-11 09:54 | CP.PCM.PN ---
Subjective - Date & Time of Evaluation Date of Evaluation: 11/11/17 Time of Evaluation: 09:52 - Subjective Subjective: Podiatry Progress note: Dr. Fletcher 77 year old male with PMHx of IDDM2, Myelodysplastic syndrome, HTN was evaluated at bedside for right great toe pain. Patient is AAOx3 and is in NAD. Reports of no acute overnight events. Reports that he is tolerating pain to his feet well with medications. Denies F/N/V/C/SOB/CP/headache. No new pedal complains. Objective - Vital Signs/Intake and Output Vital Signs (last 24 hours): Temp Pulse Resp BP Pulse Ox 98.1 F 74 20 163/73 H 99 11/11/17 08:21 11/11/17 08:21 11/11/17 08:21 11/11/17 08:21 11/11/17 08:21 - Medications Medications: Current Medications Acetaminophen (Tylenol 325mg Tab) 325 mg PO Q6 PRN PRN Reason: Pain, Mild (1-3) Cilostazol (Pletal) 100 mg PO DAILY [facility] Last Admin: 11/11/17 08:45 Dose: 100 mg Collagenase (Santyl) 1 applic TOP DAILY [facility] Last Admin: 11/11/17 08:48 Dose: 1 unit Ferrous Sulfate (Feosol) 325 mg PO TID [facility] Last Admin: 11/11/17 08:45 Dose: 325 mg Hydrochlorothiazide (Microzide) 12.5 mg PO DAILY [facility] Last Admin: 11/11/17 08:46 Dose: 12.5 mg Sodium Chloride (Sodium Chloride 0.9%) 1,000 mls @ 999 mls/hr IV .Q1H1M [facility] Stop: 11/11/17 18:30 Sodium Chloride (Sodium Chloride 0.9%) 1,000 mls @ 75 mls/hr IV .[id number] [facility] Stop: 11/11/17 18:18 Last Admin: 11/11/17 00:00 Dose: 75 mls/hr Lidocaine HCl (Xylocaine 2%) 1 applic TOP HS [facility] Last Admin: 11/10/17 21:41 Dose: 1 applic Morphine Sulfate (Morphine) 2 mg IVP Q4 PRN PRN Reason: Pain, severe (8-10) Last Admin: 11/10/17 20:40 Dose: 2 mg Oxycodone/Acetaminophen (Percocet 5/325 Mg Tab) 1 tab PO Q4 PRN PRN Reason: Pain, moderate (4-7) Stop: 11/13/17 19:27 Last Admin: 11/11/17 06:45 Dose: 1 tab - Labs Labs: 11/11/17 06:30 11/11/17 06:30 PT 12.1 Seconds (9.8-13.1) 11/10/17 14:12 INR 1.1 (0.9-1.2) 11/10/17 14:12 APTT 32.3 Seconds (25.6-37.1) 11/10/17 14:12 - Constitutional Appears: Well, Non-toxic, No Acute Distress - Extremities Exam Additional comments: RLE focused exam: Vasc: DP/PT pulses faintly palpable 1/4. Skin temperature warm to warm from proximal to distal, though noted to have decrease in temperature to right hallux. CFT < 3 seconds to all digits. No edema noted Neuro: Epicritic and protective sensation grossly intact. Derm: Dark, ecchymotic soft tissue changes appreciated at distal tuft of right hallux consistent with deep tissue injury. Petechiae noted throughout lower leg. MSK: Severe POP to distal tuft of right hallux. 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 Fletcher Right foot XR reviewed: severe degenerate changes of 1st MPJ Physical therapy ordered - gait training, conditioning Patient informed on the probable cause of this etiology and advised to avoid excessive weight bearing to that area of his foot QD dressing changes -LU [place] Podiatry will continue to follow
[2017-11-11 10:13] LABS: BASO % 0.7 % (0.0-2.0); EOS % 0.8 % (0.0-4.0); LYMPH # 1.1 K/uL (1.0-4.3); LYMPH % 55.9 % (20.0-40.0); MEAN PLATELET VOLUME 7.1 fl (7.2-11.7); MONO # 0.4 K/uL (0.0-0.8); MONO % 18.3 % (0.0-10.0); NEUT # 0.5 K/uL (1.8-7.0); NEUT % 24.3 % (50.0-75.0); NRBC % 0.3 % (0.0-0.0)
[2017-11-11] MEDS: Sodium Chloride 0.9% 1,000 ML IV SCH ×2 (13:07)
--- NOTE | 2017-11-11 17:23 | CP.PCM.CON ---
History of Present Illness - History of Present Illness History of Present Illness: 77 year old male with a history of DM, MDS diagnosed 08/2017 admitted with pancytopenia and right toe pain. The patient is well known to me and was recently discharged from the hospital. He notes to worsening right big toe pain with discoloration at the tip. He denies abnormal bleeding but does bruise easily. Past medical history: DM, HL, MDS Past surgical history: Foot surgery Family history: Mother had bone cancer Social history: Denies tobacco, alcohol, and illicit drug use. Allergies: NKA Review of systems: All remaining review of systems including HEENT, cardiovascular, respiratory, gastrointestinal, genitourinary, musculoskeletal, dermatologic, neurologic, and psychiatric are negative unless mentioned in the HPI. Past Patient History - Infectious Disease Hx of Infectious Diseases: None - Past Medical History & Family History Past Medical History?: Yes - Past Social History Drugs: Denies - CARDIAC Hx Hypercholesterolemia: Yes Hx Hypertension: Yes - PULMONARY Hx Respiratory Disorders: No - NEUROLOGICAL Hx Neurological Disorder: No - HEENT Hx HEENT Problems: No - RENAL Hx Chronic Kidney Disease: Yes Hx Kidney Stones: Yes - ENDOCRINE/METABOLIC Hx Endocrine Disorders: Yes Hx Diabetes Mellitus Type 2: Yes - HEMATOLOGICAL/ONCOLOGICAL Hx Anemia: Yes Hx Human Immunodeficiency Virus (HIV): No - INTEGUMENTARY Hx Dermatological Problems: No - MUSCULOSKELETAL/RHEUMATOLOGICAL Hx Musculoskeletal Disorders: No Hx Falls: Yes - GASTROINTESTINAL Hx Gastrointestinal Disorders: No - GENITOURINARY/GYNECOLOGICAL Hx Genitourinary Disorders: No - PSYCHIATRIC Hx Psychophysiologic Disorder: No Hx Substance Use: No - SURGICAL HISTORY Hx Surgeries: Yes Other/Comment: Bunion - ANESTHESIA Hx Anesthesia: Yes Hx Anesthesia Reactions: No Hx Malignant Hyperthermia: No Meds Allergies/Adverse Reactions: Allergies Allergy/AdvReac Type Severity Reaction Status Date / Time No Known Allergies Allergy Verified 10/09/17 18:50 - Medications Medications: Current Medications Acetaminophen (Tylenol 325mg Tab) 325 mg PO Q6 PRN PRN Reason: Pain, Mild (1-3) Cilostazol (Pletal) 100 mg PO DAILY [facility] Last Admin: 11/11/17 08:45 Dose: 100 mg Collagenase (Santyl) 1 applic TOP DAILY [facility] Last Admin: 11/11/17 08:48 Dose: 1 unit Ferrous Sulfate (Feosol) 325 mg PO TID [facility] Last Admin: 11/11/17 17:16 Dose: 325 mg Hydrochlorothiazide (Hydrodiuril) 25 mg PO DAILY [facility] Sodium Chloride (Sodium Chloride 0.9%) 1,000 mls @ 999 mls/hr IV .Q1H1M [facility] Stop: 11/11/17 18:30 Sodium Chloride (Sodium Chloride 0.9%) 1,000 mls @ 75 mls/hr IV .[id number] [facility] Stop: 11/11/17 18:18 Last Admin: 11/11/17 13:07 Dose: Not Given Lidocaine HCl (Xylocaine 2%) 1 applic TOP HS [facility] Last Admin: 11/10/17 21:41 Dose: 1 applic Morphine Sulfate (Morphine) 2 mg IVP Q4 PRN PRN Reason: Pain, severe (8-10) Last Admin: 11/10/17 20:40 Dose: 2 mg Oxycodone/Acetaminophen (Percocet 5/325 Mg Tab) 1 tab PO Q4 PRN PRN Reason: Pain, moderate (4-7) Stop: 11/13/17 19:27 Last Admin: 11/11/17 17:15 Dose: 1 tab Physical Exam - Head Exam Head Exam: ATRAUMATIC - Eye Exam Eye Exam: Normal appearance - ENT Exam ENT Exam: Mucous Membranes Dry - Respiratory Exam Respiratory Exam: NORMAL BREATHING PATTERN - Cardiovascular Exam Cardiovascular Exam: +S1, +S2 - GI/Abdominal Exam GI & Abdominal Exam: Normal Bowel Sounds - Extremities Exam Additional comments: right foot dressing - Neurological Exam Neurological exam: Oriented x3 - Psychiatric Exam Psychiatric exam: Normal Affect, Normal Mood - Skin Skin Exam: Warm Results - Vital Signs Recent Vital Signs: Last Vital Signs Temp 97.9 F 11/11/17 16:12 Pulse 86 11/11/17 16:12 Resp 20 11/11/17 16:12 BP 133/67 11/11/17 16:12 Pulse Ox 98 11/11/17 16:12 - Labs Result Diagrams: 11/11/17 06:30 11/11/17 06:30 Labs: Laboratory Results - last 24 hr 11/10/17 11/11/17 11/11/17 21:36 05:29 06:30 WBC 1.9 L* RBC 3.11 L Hgb 9.1 L Hct 25.8 L MCV 83.1 MCH 29.4 MCHC 35.4 RDW 15.5 H Plt Count 63 L D MPV 7.1 L Neut % (Auto) 24.3 L Lymph % (Auto) 55.9 H Emanuel % (Auto) 18.3 H Eos % (Auto) 0.8 Baso % (Auto) 0.7 Neut # (Auto) 0.5 L Lymph # (Auto) 1.1 Emanuel # (Auto) 0.4 Eos # (Auto) 0.0 Baso # (Auto) 0.0 Sodium Potassium Chloride Carbon Dioxide Anion Gap BUN Creatinine Est GFR ( Amer) Est GFR (Non-Af Amer) POC Glucose (mg/dL) 95 97 Random Glucose Calcium 11/11/17 06:30 WBC RBC Hgb Hct MCV MCH MCHC RDW Plt Count MPV Neut % (Auto) Lymph % (Auto) Emanuel % (Auto) Eos % (Auto) Baso % (Auto) Neut # (Auto) Lymph # (Auto) Emanuel # (Auto) Eos # (Auto) Baso # (Auto) Sodium 140 Potassium 3.8 Chloride 106 Carbon Dioxide 22 Anion Gap 16 BUN 50 H Creatinine 1.9 H Est GFR ( Amer) 42 Est GFR (Non-Af Amer) 34 POC Glucose (mg/dL) Random Glucose 116 H Calcium 8.6 Assessment & Plan (1) Pancytopenia Assessment and Plan: secondary to MDS s/p 1 bag platelets Granix if ANC < 500 Status: Acute (2) Myelodysplasia (myelodysplastic syndrome) Assessment and Plan: outpatient treatment Thank you for this interesting consult. Status: Acute
[2017-11-11] MEDS: Lidocaine 2% GEL TOP SCH ×2 (22:49→22:52)
[2017-11-12] MEDS: Oxycodone/Acetaminophen 5/325 mg Tab PO PRN (05:29)
--- NOTE | 2017-11-12 07:26 | CP.PCM.PN ---
Subjective - Date & Time of Evaluation Date of Evaluation: 11/12/17 Time of Evaluation: 07:26 - Subjective Subjective: 77 y/o M seen and examined by bedside. Pt c/o of severe R 1st toe pain that decreases in intensity with medication for a couple of hours and then recurs. Pt afebrile, tolerating PO and NO acute events overnight. Objective - Vital Signs/Intake and Output Vital Signs (last 24 hours): Temp Pulse Resp BP Pulse Ox 98.2 F 83 19 154/71 H 99 11/11/17 23:24 11/11/17 23:24 11/11/17 23:24 11/11/17 23:24 11/11/17 23:24 - Medications Medications: Current Medications Acetaminophen (Tylenol 325mg Tab) 325 mg PO Q6 PRN PRN Reason: Pain, Mild (1-3) Cilostazol (Pletal) 100 mg PO DAILY [facility] Last Admin: 11/11/17 08:45 Dose: 100 mg Collagenase (Santyl) 1 applic TOP DAILY [facility] Last Admin: 11/11/17 08:48 Dose: 1 unit Ferrous Sulfate (Feosol) 325 mg PO TID [facility] Last Admin: 11/11/17 17:16 Dose: 325 mg Hydrochlorothiazide (Hydrodiuril) 25 mg PO DAILY [facility] Lidocaine HCl (Xylocaine 2%) 1 applic TOP [facility] Last Admin: 11/11/17 22:52 Dose: Not Given Morphine Sulfate (Morphine) 2 mg IVP Q4 PRN PRN Reason: Pain, severe (8-10) Last Admin: 11/10/17 20:40 Dose: 2 mg Oxycodone/Acetaminophen (Percocet 5/325 Mg Tab) 1 tab PO Q4 PRN PRN Reason: Pain, moderate (4-7) Stop: 11/13/17 19:27 Last Admin: 11/12/17 05:29 Dose: 1 tab - Labs Labs: 11/11/17 06:30 11/11/17 06:30 PT 12.1 Seconds (9.8-13.1) 11/10/17 14:12 INR 1.1 (0.9-1.2) 11/10/17 14:12 APTT 32.3 Seconds (25.6-37.1) 11/10/17 14:12 - Constitutional Appears: No Acute Distress, Cachectic, Chronically Ill - Head Exam Head Exam: NORMAL INSPECTION - Eye Exam Eye Exam: EOMI - ENT Exam ENT Exam: Mucous Membranes Dry Additional comments: Oropharynx: presence of small lesions and minor gingival bleeding. - Respiratory Exam Respiratory Exam: NORMAL BREATHING PATTERN. absent: Rhonchi, Wheezes - Cardiovascular Exam Cardiovascular Exam: +S1, +S2, Murmur - GI/Abdominal Exam GI & Abdominal Exam: Soft, Normal Bowel Sounds. absent: Guarding, Tenderness, Rebound - Extremities Exam Extremities Exam: Full ROM. absent: Calf Tenderness Additional comments: R foot on dressing that is clean, dry and intact. - Neurological Exam Neurological Exam: Alert, Awake, Oriented x3 Assessment and Plan - Assessment and Plan (Free Text) Assessment: 77 yo male with a PMHx of MDS, HTN and pancytopenia admitted for severe thrombocytopenia and pancytopenia Pancytopenia -Due to myelodysplatic syndrome -ANC:462 -Hgb 9.1; WBC 1.9 -C/W Ferrous Sulfate PO -Monitor CBC Thrombocytopenia -s/p plateletpheresis yesterday -Platelet 63 this morning -Secondary to myelodysplatic syndrome -Presence of petechia, ecchymosis and purpura. -Hem-Oncolgy consult, Dr Pace -Monitor CBC. Myelodysplastic syndrome -Bone marrow biopsy done on 09/04/17 reported findings suggestive of myelodysplasia. -F/U hemo-oncology recommendations -Needs assistance for insurance acquisition, important in order for chemotherapy begins. (technology services manager unable to help due to coercion risk) Right toe pain -XR R foot: severe degenerative change of the 1st metatarsophalangeal joint. => Podiatry was consulted. -Lidocaine 2% topical HS. -F/U Podiatry recommendations. -Collagenase topical as per podiatry. CKD stage 5 -Acute on Chronic/acute kidney injury -BUN/Cr 63/2.3 on admission -Improving BUN/Cr 50/1.9 today -IV NSS bolus and maintenance. -Monitor BMP after transfusion HTN, uncontrolled -Chronic -Hold Home meds: HCTZ 12.5mg daily -Start 25 mg HCTZ -Monitor BP. DM type 2-Diet controlled -Last HbA1c 6.6 -ISS low dose Prophylaxis -SCDs -Hold Lovenox due to thrombocytopenia
[2017-11-12 07:37] LABS: BASO % 0.7 % (0.0-2.0); EOS % 0.9 % (0.0-4.0); HEMOGLOBIN 8.6 g/dL (12.0-18.0); LYMPH % 55.4 % (20.0-40.0); MEAN CELL VOLUME 83.8 fl (80.0-94.0); MEAN CORPUSCULAR HEMOGLOBIN 29.2 pg (27.0-31.0); MEAN CORPUSCULAR HGB CONC 34.8 g/dL (33.0-37.0); MEAN PLATELET VOLUME 7.2 fl (7.2-11.7); MONO # 0.3 K/uL (0.0-0.8); MONO % 16.8 % (0.0-10.0); NEUT # 0.5 K/uL (1.8-7.0); NEUT % 26.2 % (50.0-75.0); NRBC % 0.1 % (0.0-0.0); PLATELET COUNT 48 K/uL (130-400); RBC 2.93 Mil/uL (4.40-5.90); RED CELL DISTRIBUTION WIDTH 15.8 % (11.5-14.5)
[2017-11-12 07:43] LABS: CALCIUM 8.4 mg/dL (8.4-10.2)
[2017-11-12 08:16] LABS: WHITE BLOOD COUNT 1.9 K/uL (4.8-10.8)
[2017-11-12 08:17] VITALS: BP 150/73; PULSE 81; RESP 18; TEMP 98.5; O2SAT 96
[2017-11-12] MEDS: Cilostazol 100 mg Tab UD PO SCH (09:44)
[2017-11-12] MEDS: Santyl Collagenase OINTMENT TOP SCH (09:47)
[2017-11-12] MEDS: Lidocaine 2% GEL TOP SCH ×2 (09:48)
[2017-11-12 10:44] LABS: BANDS 2 % (0-2); LYMPHOCYTE 56 % (20-50); MONOCYTE 12 % (0-10); NEUTROPHIL 30 % (42-75); PLATELET ESTIMATE DECREASED (NORMAL); TOTAL CELLS COUNTED 50
[2017-11-12 10:45] LABS: ANISOCYTOSIS SLIGHT; OVALOCYTES SLIGHT
--- NOTE | 2017-11-12 12:52 | CP.PCM.DIS ---
Provider - Provider Date of Admission: 11/10/17 15:45 Attending physician: Karina Luevano MD Primary care physician: [facility] Consults: Hematology: Dr Pace. Time Spent in preparation of Discharge (in minutes): 25 Diagnosis - Discharge Diagnosis (1) Thrombocytopenia Status: Acute Comment: -Pt will f/u with pilot plant operator Dr Pace in 7 days. (2) Myelodysplasia (myelodysplastic syndrome) Status: Acute Comment: -Chemotherapy needs to be initiated. Insurance arrangement has to be completed. Hospital Course - Lab Results Lab Results: Most Recent Lab Values WBC 1.9 K/uL (4.8-10.8) L* 11/12/17 06:00 RBC 2.93 Mil/uL (4.40-5.90) L 11/12/17 06:00 Hgb 8.6 g/dL (12.0-18.0) L 11/12/17 06:00 Hct 24.6 % (35.0-51.0) L 11/12/17 06:00 MCV 83.8 fl (80.0-94.0) 11/12/17 06:00 MCH 29.2 pg (27.0-31.0) 11/12/17 06:00 MCHC 34.8 g/dL (33.0-37.0) 11/12/17 06:00 RDW 15.8 % (11.5-14.5) H 11/12/17 06:00 Plt Count 48 K/uL (130-400) L 11/12/17 06:00 MPV 7.2 fl (7.2-11.7) 11/12/17 06:00 Neut % (Auto) 26.2 % (50.0-75.0) L 11/12/17 06:00 Lymph % (Auto) 55.4 % (20.0-40.0) H 11/12/17 06:00 Love % (Auto) 16.8 % (0.0-10.0) H 11/12/17 06:00 Eos % (Auto) 0.9 % (0.0-4.0) 11/12/17 06:00 Baso % (Auto) 0.7 % (0.0-2.0) 11/12/17 06:00 Neut # (Auto) 0.5 K/uL (1.8-7.0) L 11/12/17 06:00 Lymph # (Auto) 1.0 K/uL (1.0-4.3) 11/12/17 06:00 Love # (Auto) 0.3 K/uL (0.0-0.8) 11/12/17 06:00 Eos # (Auto) 0.0 K/uL (0.0-0.7) 11/12/17 06:00 Baso # (Auto) 0.0 K/uL (0.0-0.2) 11/12/17 06:00 Neutrophils % (Manual) 30 % (42-75) L 11/12/17 06:00 Band Neutrophils % 2 % (0-2) 11/12/17 06:00 Lymphocytes % (Manual) 56 % (20-50) H 11/12/17 06:00 Monocytes % (Manual) 12 % (0-10) H 11/12/17 06:00 Platelet Estimate Decreased (NORMAL) L 11/12/17 06:00 Anisocytosis (manual) Slight 11/12/17 06:00 Ovalocytes Slight 11/12/17 06:00 PT 12.1 Seconds (9.8-13.1) 11/10/17 14:12 INR 1.1 (0.9-1.2) 11/10/17 14:12 APTT 32.3 Seconds (25.6-37.1) 11/10/17 14:12 Sodium 139 mmol/l (132-148) 11/12/17 06:00 Potassium 4.0 MMOL/L (3.6-5.0) 11/12/17 06:00 Chloride 105 mmol/L (98-107) 11/12/17 06:00 Carbon Dioxide 22 mmol/L (22-30) 11/12/17 06:00 Anion Gap 16 (10-20) 11/12/17 06:00 BUN 47 mg/dl (9-20) H 11/12/17 06:00 Creatinine 1.9 mg/dl (0.8-1.5) H 11/12/17 06:00 Est GFR ( Amer) 42 11/12/17 06:00 Est GFR (Non-Af Amer) 34 11/12/17 06:00 POC Glucose (mg/dL) 190 mg/dL (65-110) H 11/12/17 12:00 Random Glucose 112 mg/dL (75-110) H 11/12/17 06:00 Calcium 8.4 mg/dL (8.4-10.2) 11/12/17 06:00 Total Bilirubin 0.4 mg/dl (0.2-1.3) 11/10/17 14:12 AST 21 U/L (17-59) 11/10/17 14:12 ALT 37 U/L (21-72) 11/10/17 14:12 Alkaline Phosphatase 108 U/L (38-126) 11/10/17 14:12 Total Protein 7.7 G/DL (6.3-8.2) 11/10/17 14:12 Albumin 3.5 g/dL (3.5-5.0) 11/10/17 14:12 Globulin 4.2 gm/dL (2.2-3.9) H 11/10/17 14:12 Albumin/Globulin Ratio 0.8 (1.0-2.1) L 11/10/17 14:12 Blood Type O POSITIVE 11/10/17 14:00 Antibody Screen Negative 11/10/17 14:00 BBK History Checked Patient has bt 11/10/17 14:00 - Hospital Course Hospital Course: 77 y/o M, with pMHx of MDS, pancitopenia, DM2, HTN admitted for management of thrombocytopenia (Plt count of 13). Pt received platelet transfusion. Pt remained hemodynamically stable. R 1st toe pain was addressed by Podiatry team, Collagenase was initiated. Pt discharge with instruction to f/u with Dr Pace within [address] Brown on 11/14/17. - Date & Time of H&P Date of H&P: 11/10/17 Time of H&P: 16:10 Discharge Exam - Head Exam Head Exam: ATRAUMATIC - Eye Exam Eye Exam: EOMI, Normal appearance - Neck Exam Neck exam: Full Rom - Respiratory Exam Respiratory Exam: NORMAL BREATHING PATTERN, UNREMARKABLE - Cardiovascular Exam Cardiovascular Exam: +S1, +S2, Systolic Murmur - GI/Abdominal Exam GI & Abdominal Exam: Normal Bowel Sounds, Soft, Unremarkable. absent: Tenderness - Extremities Exam Extremities exam: full ROM, normal inspection - Neurological Exam Neurological exam: Alert, Oriented x3 - Psychiatric Exam Psychiatric exam: Normal Mood Discharge Plan - Discharge Medications Prescriptions: Collagenase [Santyl] 1 applic TOP DAILY 30 Days tube hydroCHLOROthiazide [Hydrodiuril] 25 mg PO DAILY #30 tab - Follow Up Plan Condition: STABLE Disposition: HOME/ ROUTINE Instructions: Myelodysplastic Syndromes (DC) Additional Instructions: -Please f/u with Dr Brown on 11/14/17 at [facility]. -F/U with Dr Pace, hematology/oncology, for chemotherapy initiation. -Por favor, asista a tyson delma con Dr Brown [facility], a las 3:20 pm. -Siga con tyson control con Dr Pace. -Continue con eugenia medicamentos. Referrals: Ty Pace MD [Staff Provider] -
--- NOTE | 2017-11-12 14:31 | CP.PCM.PN ---
Subjective - Date & Time of Evaluation Date of Evaluation: 11/12/17 Time of Evaluation: 14:29 - Subjective Subjective: Podiatry Progress note: Dr. Fletcher 77 year old male with PMHx of IDDM2, Myelodysplastic syndrome, HTN was evaluated at bedside for right great toe pain. Patient seen at bedside with his daughters. Patient is AAOx3 and is in NAD. Reports of no acute overnight events. Reports that he is tolerating pain to his feet well with medications. Denies F/N/V/C/SOB/CP/headache. No new pedal complains. Objective - Vital Signs/Intake and Output Vital Signs (last 24 hours): Temp Pulse Resp BP Pulse Ox 98.5 F 81 18 150/73 96 11/12/17 08:17 11/12/17 08:17 11/12/17 08:17 11/12/17 08:17 11/12/17 08:17 - Medications Medications: Current Medications Acetaminophen (Tylenol 325mg Tab) 325 mg PO Q6 PRN PRN Reason: Pain, Mild (1-3) Cilostazol (Pletal) 100 mg PO DAILY [facility] Last Admin: 11/12/17 09:44 Dose: 100 mg Collagenase (Santyl) 1 applic TOP DAILY [facility] Last Admin: 11/12/17 09:47 Dose: 1 applic Ferrous Sulfate (Feosol) 325 mg PO TID [facility] Last Admin: 11/12/17 12:13 Dose: 325 mg Hydrochlorothiazide (Hydrodiuril) 25 mg PO DAILY [facility] Last Admin: 11/12/17 09:44 Dose: 25 mg Lidocaine HCl (Xylocaine 2%) 1 applic TOP DAILY [facility] Last Admin: 11/12/17 09:48 Dose: 1 applic Morphine Sulfate (Morphine) 2 mg IVP Q4 PRN PRN Reason: Pain, severe (8-10) Last Admin: 11/10/17 20:40 Dose: 2 mg Oxycodone/Acetaminophen (Percocet 5/325 Mg Tab) 1 tab PO Q4 PRN PRN Reason: Pain, moderate (4-7) Stop: 11/13/17 19:27 Last Admin: 11/12/17 05:29 Dose: 1 tab - Labs Labs: 11/12/17 06:00 11/12/17 06:00 PT 12.1 Seconds (9.8-13.1) 11/10/17 14:12 INR 1.1 (0.9-1.2) 11/10/17 14:12 APTT 32.3 Seconds (25.6-37.1) 11/10/17 14:12 - Constitutional Appears: Well, Non-toxic, No Acute Distress - Extremities Exam Additional comments: RLE focused exam: Vasc: DP/PT pulses faintly palpable 1/4. Skin temperature warm to warm from proximal to distal, though noted to have decrease in temperature to right hallux. CFT < 3 seconds to all digits. No edema noted Neuro: Epicritic and protective sensation grossly intact. Derm: Dark, ecchymotic soft tissue changes appreciated at distal tuft of right hallux consistent with deep tissue injury. Petechiae noted throughout lower leg. MSK: Severe POP to distal tuft of right hallux. 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 Fletcher Right foot XR reviewed: severe degenerate changes of 1st MPJ Physical therapy ordered - gait training, conditioning Patient informed on the probable cause of this etiology and advised to avoid excessive weight bearing to that area of his foot QD dressing changes -LU [facility]ry will continue to follow while in-house
--- NOTE | 2017-11-13 07:08 | CARD ---
APPROVED REPORT EKG Measurement Heart [id number] <Conclusion> Normal sinus rhythm Normal ECG
== END 2017-11-12 15:32 | disposition home or self-care (01) | DRG 574 ==
LOC: H.ER 12:55 → H.ERHOLD 15:45 → H.MEDSURG1 18:41
PROVIDERS: ADMIT Family Medicine Geriatric Medicine; ATTEND Family Medicine Geriatric Medicine
PROC: 6A550Z2 Pheresis of Platelets, Single (ICD-10-PCS; principal; 2017-11-10)
DX: D61.818 Other pancytopenia (principal); N17.9 Acute kidney failure, unspecified; E11.22 Type 2 diabetes mellitus with diabetic chronic kidney disease; N18.5 Chronic kidney disease, stage 5; I12.0 Hypertensive chronic kidney disease with stage 5 chronic kidney disease or end stage renal disease; D46.9 Myelodysplastic syndrome, unspecified; E78.00 Pure hypercholesterolemia, unspecified; E78.5 Hyperlipidemia, unspecified; Z79.4 Long term (current) use of insulin; M20.21 Hallux rigidus, right foot

== ENCOUNTER 2017-11-16 16:45 | Inpatient (IN) | payer MEDICAID ==
[2017-11-16 16:45] VITALS: BMI 21.9
--- NOTE | 2017-11-16 18:42 | ED PDOC ---
HPI: General Adult Time Seen by Provider: 11/16/17 17:18 Chief Complaint (Nursing): Abnormal Labs Chief Complaint (Provider): sent for abnormal labs History Per: Patient, Other (prior charts) History/Exam Limitations: physical impairment Recently: Treated By A Physician, Hospitalized Additional Complaint(s): 77yo male sent from outpatient labs for severe thrombocytopenia in setting of history of MDS. Recently admitted for same. Hasnt been able to acquire definitive treatment to date. C/o foot pain but denies melena, BRBPR, hematuria, headache or hemoptysis. Past Medical History Reviewed: Historical Data, Nursing Documentation, Vital Signs Vital Signs: Last Vital Signs Temp 98 F 11/16/17 17:08 Pulse 78 11/16/17 17:08 Resp 18 11/16/17 17:08 BP 174/70 H 11/16/17 17:08 Pulse Ox 99 11/16/17 18:44 - Medical History PMH: Anemia, Diabetes, HTN, Hypercholesterolemia, Hyperlipidemia, Kidney Stones , Chronic Kidney Disease Denies: HIV Other PMH: MDS - Family History Family History: States: Unknown Family Hx - Home Medications Home Medications: Ambulatory Orders Medication Instructions Recorded Acetaminophen [Tylenol 325mg tab] 325 mg PO Q6 PRN #30 tab 10/18/17 Cilostazol [Pletal] 100 mg PO DAILY #30 tab 10/25/17 Ferrous Sulfate [Feosol] 325 mg PO TID 11/01/17 Lidocaine 5% 1 appl TOP HS 11/01/17 Lidocaine 2% [Xylocaine 2%] 1 applic TOP HS tube 11/03/17 Collagenase [Santyl] 1 applic TOP DAILY 30 Days tube 11/12/17 hydroCHLOROthiazide [Hydrodiuril] 25 mg PO DAILY #30 tab 11/12/17 - Allergies Allergies/Adverse Reactions: Allergies Allergy/AdvReac Type Severity Reaction Status Date / Time No Known Allergies Allergy Verified 10/09/17 18:50 Review of Systems Constitutional: Positive for: Weakness. Negative for: Fever Cardiovascular: Negative for: Chest Pain Gastrointestinal: Negative for: Nausea Genitourinary Male: Negative for: Dysuria Skin: Positive for: Bruising Neurological: Negative for: Weakness, Headache Psych: Negative for: Suicidal ideation Physical Exam - Reviewed Nursing Documentation Reviewed: Yes Vital Signs Reviewed: Yes - Physical Exam Appears: Positive for: Well, Non-toxic, No Acute Distress Head Exam: Positive for: ATRAUMATIC, NORMAL INSPECTION, NORMOCEPHALIC Skin: Positive for: Warm. Negative for: Normal Color (+scattered ecchymosis) Eye Exam: Positive for: EOMI, Normal appearance, PERRL ENT: Positive for: Normal ENT Inspection Neck: Positive for: Normal, Painless ROM Cardiovascular/Chest: Positive for: Regular Rate, Rhythm Respiratory: Positive for: CNT, Normal Breath Sounds Gastrointestinal/Abdominal: Positive for: Soft. Negative for: Tenderness, Guarding Back: Positive for: Normal Inspection Extremity: Positive for: Normal ROM, Other (toe hematoma) Neurologic/Psych: Positive for: Alert, Oriented. Negative for: Motor/Sensory Deficits - ECG O2 Sat by Pulse Oximetry: 99 Medical Decision Making Medical Decision Making: outpatient labs reviewed, pancytopenia w Plt 18 d/w Dr Pace customer associate who saw patient last admission, recommends transfuse one bag platelets and he needs definitive care as outpatient manual platelet count ordered BMP ordered pending time admit Disposition - Clinical Impression Clinical Impression: Thrombocytopenia, Myelodysplasia (myelodysplastic syndrome) - Patient ED Disposition Is Patient to be Admitted: Yes - Disposition Disposition Time: 18:15 Condition: FAIR Forms: [employer] (Romanian)
--- NOTE | 2017-11-16 20:46 | CP.PCM.HP ---
History of Present Illness - History of Present Illness History of Present Illness: 77 yo M with a PMHx of Myelodysplastic Syndrome, Pancytopenia, CKD, HTN, DM with recent platelet transfusion on 11/10/17 was called to return to the ER after his outpatient platelet count was noted to be 18. Patient otherwise is doing well, states his toe feels 80% better compared to his last visit and pain is well controlled. Patient is currently awaiting for insurance so he can start outpatient treatment with Dr. Pace, insurance expected to be activated on 11/24/17. Denies any active bleeding, hemoptoisis, hematuria, or melena. Pt denies fever, chills. chest pain, SOB, nausea, change in bowel movement or peripheral edema. PMD: [facility]:(Dr. Brown) Last visit 11/14/17 Hemo-Onc: Dr Pace NKDA Home meds: >Cilostazol 100 mg PO Daily >Feosol 325 mg PO TID >HCTZ 25 mg PO daily >Lidocaine 2% cream PMHx: diet-controlled DM2, HTN, Myelodysplastic Syndrome, Pancytopenia, CKD. PSHx: L foot bunion FHx: mother has bone cancer, other family members w/ DM2 SHx: denies smoking now and in the past, denies alcohol use, denies drug use Next of kin: Ottoniel Diaz (son) [phone] Code status: full code Present on Admission - Present on Admission Any Indicators Present on Admission: No Review of Systems - Review of Systems All systems: reviewed and no additional remarkable complaints except Past Patient History - Infectious Disease Hx of Infectious Diseases: None - Past Medical History & Family History Past Medical History?: Yes - Past Social History Smoking Status: Never Smoked - CARDIAC Hx Hypercholesterolemia: Yes Hx Hypertension: Yes - PULMONARY Hx Respiratory Disorders: No - NEUROLOGICAL Hx Neurological Disorder: No - HEENT Hx HEENT Problems: No - RENAL Hx Chronic Kidney Disease: Yes Hx Kidney Stones: Yes - ENDOCRINE/METABOLIC Hx Endocrine Disorders: Yes Hx Diabetes Mellitus Type 2: Yes - HEMATOLOGICAL/ONCOLOGICAL Hx Anemia: Yes Hx Human Immunodeficiency Virus (HIV): No - INTEGUMENTARY Hx Dermatological Problems: No - MUSCULOSKELETAL/RHEUMATOLOGICAL Hx Musculoskeletal Disorders: No Hx Falls: Yes - GASTROINTESTINAL Hx Gastrointestinal Disorders: No - GENITOURINARY/GYNECOLOGICAL Hx Genitourinary Disorders: No - PSYCHIATRIC Hx Psychophysiologic Disorder: No Hx Substance Use: No - SURGICAL HISTORY Hx Surgeries: Yes Other/Comment: Bunion - ANESTHESIA Hx Anesthesia: Yes Hx Anesthesia Reactions: No Hx Malignant Hyperthermia: No Meds Allergies/Adverse Reactions: Allergies Allergy/AdvReac Type Severity Reaction Status Date / Time No Known Allergies Allergy Verified 10/09/17 18:50 Physical Exam - Constitutional Appears: No Acute Distress - Head Exam Head Exam: NORMAL INSPECTION - Eye Exam Eye Exam: Normal appearance - Respiratory Exam Respiratory Exam: Clear to Auscultation Bilateral, NORMAL BREATHING PATTERN. absent: Rhonchi, Wheezes - Cardiovascular Exam Cardiovascular Exam: REGULAR RHYTHM, +S1, +S2 - GI/Abdominal Exam GI & Abdominal Exam: Normal Bowel Sounds, Soft. absent: Tenderness - Extremities Exam Extremities exam: Negative for: calf tenderness Additional comments: Right toe is dressing is C/D/I - Back Exam Back exam: NORMAL INSPECTION - Neurological Exam Neurological exam: Alert, CN II-XII Intact, Oriented x3 - Skin Skin Exam: Normal Color, Warm Results - Vital Signs Recent Vital Signs: Last Vital Signs Temp 98 F 11/16/17 17:08 Pulse 78 11/16/17 17:08 Resp 18 11/16/17 17:08 BP 174/70 H 11/16/17 17:08 Pulse Ox 99 11/16/17 18:55 - Labs Result Diagrams: 11/16/17 19:10 Labs: Laboratory Results - last 24 hr 11/16/17 11/16/17 18:55 19:10 Manual Plt Count 7 L* Sodium 139 Potassium 4.3 Chloride 105 Carbon Dioxide 21 L Anion Gap 17 BUN 67 H Creatinine 2.0 H Est GFR ( Amer) 39 Est GFR (Non-Af Amer) 32 Random Glucose 150 H Calcium 9.0 Assessment & Plan - Assessment and Plan (Free Text) Assessment: 77 y/o M with PMHx of MDS and pancytopenia admitted for severe thrombocytopenia. 1)Thrombocytopenia -Secondary to myelodysplatic syndrome -Hem-Oncolgy consult, Dr Pace - Manual platelet count of 7 -Plateletpheresis ordered 1 unit -Monitor CBC. 2) Myelodysplastic syndrome -Bone marrow biopsy done on 09/04/17 reported findings suggestive of myelodysplasia. -F/U hemo-oncology recommendations - Awaiting insurance approval on 11/24/17 3) Pancytopenia -Due to myelodysplatic syndrome -Hgb 9.0; WBC: 2.0 - Consented to 1 unit of platelets -C/W Ferrous Sulfate PO -Monitor CBC 4) R toe pain (improved) -XR R foot: severe degenerative change of the 1st metatarsophalangeal joint on previous admission -Lidocaine 2% topical HS. -Collagenase topical as per podiatry. - Dressing Clean dry and intact CKD stage 5 -Acute on Chronic/acute kidney injury -BUN/Cr 67/2.0 -IVF 1 L bolus followed by maintaince @ 125 -Monitor BMP after transfusion HTN -Chronic -C/W Home meds: HCTZ 12.5mg daily -Monitor BP. DM type 2-Diet controlled -Last HbA1c 6.6 - low dose sliding scale Prophylaxis -SCDs -Hold Lovenox due to thrombocytopenia
[2017-11-16] MEDS ORDERED: Lidocaine 2% GEL TOP SCH (22:00)
[2017-11-16] MEDS ORDERED: Lidocaine 2% Jelly (5 ml) TOP SCH (22:00)
[2017-11-16] MEDS ORDERED: Lidocaine 2% Jelly (5 ml) TOP PRN (22:31)
[2017-11-17] MEDS ORDERED: Glucagon Recombinant 1 mg Inj IM PRN (00:46)
[2017-11-17] MEDS ORDERED: Dextrose 50% SYRINGE Inj (50 ml) IV PRN (00:46)
[2017-11-17] MEDS ORDERED: Sodium Chloride 0.9% 1,000 ML IV SCH (01:00)
[2017-11-17] MEDS: Oxycodone/Acetaminophen 5/325 mg Tab PO PRN (01:04)
[2017-11-17] MEDS: Sodium Chloride 0.9% 1,000 ML IV SCH ×3 (01:10→09:15)
[2017-11-17 06:11] LABS: BASO % 0.8 % (0.0-2.0); EOS % 0.5 % (0.0-4.0); HEMOGLOBIN 7.7 g/dL (12.0-18.0); LYMPH % 52.2 % (20.0-40.0); MEAN CELL VOLUME 83.3 fl (80.0-94.0); MEAN CORPUSCULAR HEMOGLOBIN 29.3 pg (27.0-31.0); MEAN CORPUSCULAR HGB CONC 35.2 g/dL (33.0-37.0); MEAN PLATELET VOLUME 6.6 fl (7.2-11.7); MONO # 0.3 K/uL (0.0-0.8); MONO % 15.8 % (0.0-10.0); NEUT # 0.6 K/uL (1.8-7.0); NEUT % 30.7 % (50.0-75.0); NRBC % 0.2 % (0.0-0.0); RBC 2.63 Mil/uL (4.40-5.90); RED CELL DISTRIBUTION WIDTH 15.7 % (11.5-14.5)
[2017-11-17 06:16] LABS: ALB/GLOB RATIO 0.8 (1.0-2.1); ALBUMIN 3.2 g/dL (3.5-5.0); CALCIUM 8.4 mg/dL (8.4-10.2)
[2017-11-17 07:36] LABS: TOTAL CELLS COUNTED 100
[2017-11-17 07:38] LABS: BANDS 1 % (0-2); EOSINOPHIL 1 % (0-7); LYMPHOCYTE 58 % (20-50); MONOCYTE 12 % (0-10); NEUTROPHIL 28 % (42-75); PLATELET ESTIMATE MARKEDLY DECREASED (NORMAL)
[2017-11-17] MEDS: Insulin Regular 100 units/ml SC SCH ×4 (08:26→22:14)
[2017-11-17] MEDS: Santyl Collagenase OINTMENT TOP SCH (09:14)
[2017-11-17] MEDS: Cilostazol 100 mg Tab UD PO SCH (09:15)
--- NOTE | 2017-11-17 13:38 | CP.PCM.PN ---
Subjective - Date & Time of Evaluation Date of Evaluation: 11/17/17 Time of Evaluation: 08:11 - Subjective Subjective: 77 y/o M seen and examined by bedside. Pt received platelet transfusion last night. Pt reports feeling well, R first toe constant pain is improving from previous admissions. Pt feels weak but he assumes is from his chronic disease. Pt afebrile, tolerating PO with NO acute events overnight. Objective - Vital Signs/Intake and Output Vital Signs (last 24 hours): Temp Pulse Resp BP Pulse Ox 97.9 F 75 18 168/72 H 99 11/17/17 08:01 11/17/17 08:01 11/17/17 08:01 11/17/17 08:01 11/17/17 08:01 - Medications Medications: Current Medications Acetaminophen (Tylenol 325mg Tab) 650 mg PO Q6 PRN PRN Reason: Pain, Mild (1-3) Cilostazol (Pletal) 100 mg PO DAILY [facility] Last Admin: 11/17/17 09:15 Dose: 100 mg Collagenase (Santyl) 1 applic TOP DAILY [facility] Last Admin: 11/17/17 09:14 Dose: 1 applic Dextrose (Dextrose 50% Inj) 0 ml IV STAT PRN; Protocol PRN Reason: Hypoglycemia Protocol Dextrose (Glutose 15) 0 gm PO ONCE PRN; Protocol PRN Reason: Hypoglycemia Protocol Ferrous Sulfate (Feosol) 325 mg PO TID [facility] Last Admin: 11/17/17 12:42 Dose: 325 mg Glucagon (Glucagen Diagnostic Kit) 0 mg IM STAT PRN; Protocol PRN Reason: Hypoglycemia Protocol Hydrochlorothiazide (Hydrodiuril) 25 mg PO DAILY [facility] Last Admin: 11/17/17 09:15 Dose: 25 mg Insulin Human Regular (Humulin R) 0 units SC ACHS [facility] PRN Reason: Protocol Last Admin: 11/17/17 12:42 Dose: 2 units Lidocaine HCl (Lidocaine Hydrochloride Jelly 2% 5 Ml) 1 ml TOP DAILY PRN PRN Reason: Pain, moderate (4-7) Morphine Sulfate (Morphine) 2 mg IVP Q6 PRN PRN Reason: Pain, severe (8-10) Oxycodone/Acetaminophen (Percocet 5/325 Mg Tab) 1 tab PO Q6 PRN PRN Reason: Pain, moderate (4-7) Stop: 11/19/17 20:38 Last Admin: 11/17/17 01:04 Dose: 1 tab - Labs Labs: 11/17/17 05:40 11/17/17 05:40 - Constitutional Appears: No Acute Distress - Head Exam Head Exam: NORMAL INSPECTION - Eye Exam Eye Exam: EOMI - ENT Exam ENT Exam: Mucous Membranes Moist - Neck Exam Neck Exam: Full ROM - Respiratory Exam Respiratory Exam: NORMAL BREATHING PATTERN. absent: Rales, Rhonchi, Wheezes, Respiratory Distress - Cardiovascular Exam Cardiovascular Exam: REGULAR RHYTHM, +S1, +S2 - GI/Abdominal Exam GI & Abdominal Exam: Soft, Normal Bowel Sounds. absent: Distended, Guarding, Tenderness - Extremities Exam Extremities Exam: Full ROM. absent: Calf Tenderness, Joint Swelling, Pedal Edema Additional comments: R first toe: presence of ~3cm diameter superficial hematoma. - Neurological Exam Neurological Exam: Alert, Awake, Oriented x3 Assessment and Plan - Assessment and Plan (Free Text) Assessment: 77 y/o M with PMHx of MDS and pancytopenia admitted for severe thrombocytopenia. Thrombocytopenia -Secondary to myelodysplatic syndrome -Hem-Oncolgy consult, Dr Pace -S/P Plateletpheresis 1 unit -Monitor CBC. -F/U Hematology further recommendations. Myelodysplastic syndrome -Bone marrow biopsy done on 09/04/17 reported findings suggestive of myelodysplasia. -F/U hemo-oncology recommendations -Awaiting insurance approval on 11/24/17 Pancytopenia -Due to myelodysplatic syndrome -Hgb 7.7; WBC: 2.0 -Absolute Neutrophilic Count: 580 -C/W Ferrous Sulfate PO -Monitor CBC, possibly need blood tranfusion. R toe pain (improved) -XR R foot: severe degenerative change of the 1st metatarsophalangeal joint on previous admission -Lidocaine 2% topical HS. -Collagenase topical as per podiatry. -Dressing change as needed. CKD stage 3B -Acute on Chronic/acute kidney injury -BUN/Cr 55/1.8 HTN -Chronic -C/W Home meds: HCTZ 25mg daily -Monitor BP. DM type 2-Diet controlled -Last HbA1c 6.6 on 09/04/17 -Low dose sliding scale Prophylaxis -SCDs -Hold Lovenox due to thrombocytopenia
--- NOTE | 2017-11-17 21:47 | CP.PCM.CON ---
History of Present Illness - History of Present Illness History of Present Illness: 77 year old male with a history of DM, MDS diagnosed 08/2017 admitted after being found to have a platelet of 18,000. The patient is well known to me and was recently discharged from the hospital. He right big toe pain with discoloration at the tip. He denies abnormal bleeding but does bruise easily. He is due to start hypomethylating treatment in November. Past medical history: DM, HL, MDS Past surgical history: Foot surgery Family history: Mother had bone cancer Social history: Denies tobacco, alcohol, and illicit drug use. Allergies: NKA Review of systems: All remaining review of systems including HEENT, cardiovascular, respiratory, gastrointestinal, genitourinary, musculoskeletal, dermatologic, neurologic, and psychiatric are negative unless mentioned in the HPI. Past Patient History - Infectious Disease Hx of Infectious Diseases: None - Past Medical History & Family History Past Medical History?: Yes - Past Social History Smoking Status: Never Smoked - CARDIAC Hx Hypercholesterolemia: Yes Hx Hypertension: Yes - PULMONARY Hx Respiratory Disorders: No - NEUROLOGICAL Hx Neurological Disorder: No - HEENT Hx HEENT Problems: No - RENAL Hx Chronic Kidney Disease: Yes Hx Kidney Stones: Yes - ENDOCRINE/METABOLIC Hx Endocrine Disorders: Yes Hx Diabetes Mellitus Type 2: Yes - HEMATOLOGICAL/ONCOLOGICAL Hx Anemia: Yes Hx Human Immunodeficiency Virus (HIV): No - INTEGUMENTARY Hx Dermatological Problems: No - MUSCULOSKELETAL/RHEUMATOLOGICAL Hx Musculoskeletal Disorders: No Hx Falls: Yes - GASTROINTESTINAL Hx Gastrointestinal Disorders: No - GENITOURINARY/GYNECOLOGICAL Hx Genitourinary Disorders: No - PSYCHIATRIC Hx Psychophysiologic Disorder: No Hx Substance Use: No - SURGICAL HISTORY Hx Surgeries: Yes Other/Comment: Bunion - ANESTHESIA Hx Anesthesia: Yes Hx Anesthesia Reactions: No Hx Malignant Hyperthermia: No Meds Allergies/Adverse Reactions: Allergies Allergy/AdvReac Type Severity Reaction Status Date / Time No Known Allergies Allergy Verified 10/09/17 18:50 - Medications Medications: Current Medications Acetaminophen (Tylenol 325mg Tab) 650 mg PO Q6 PRN PRN Reason: Pain, Mild (1-3) Cilostazol (Pletal) 100 mg PO DAILY [facility] Last Admin: 11/17/17 09:15 Dose: 100 mg Collagenase (Santyl) 1 applic TOP DAILY [facility] Last Admin: 11/17/17 09:14 Dose: 1 applic Dextrose (Dextrose 50% Inj) 0 ml IV STAT PRN; Protocol PRN Reason: Hypoglycemia Protocol Dextrose (Glutose 15) 0 gm PO ONCE PRN; Protocol PRN Reason: Hypoglycemia Protocol Ferrous Sulfate (Feosol) 325 mg PO TID [facility] Last Admin: 11/17/17 16:26 Dose: 325 mg Glucagon (Glucagen Diagnostic Kit) 0 mg IM STAT PRN; Protocol PRN Reason: Hypoglycemia Protocol Hydrochlorothiazide (Hydrodiuril) 25 mg PO DAILY [facility] Last Admin: 11/17/17 09:15 Dose: 25 mg Insulin Human Regular (Humulin R) 0 units SC ACHS [facility] PRN Reason: Protocol Last Admin: 11/17/17 16:26 Dose: Not Given Lidocaine HCl (Lidocaine Hydrochloride Jelly 2% 5 Ml) 1 ml TOP DAILY PRN PRN Reason: Pain, moderate (4-7) Morphine Sulfate (Morphine) 2 mg IVP Q6 PRN PRN Reason: Pain, severe (8-10) Oxycodone/Acetaminophen (Percocet 5/325 Mg Tab) 1 tab PO Q6 PRN PRN Reason: Pain, moderate (4-7) Stop: 11/19/17 20:38 Last Admin: 11/17/17 01:04 Dose: 1 tab Physical Exam - Head Exam Head Exam: ATRAUMATIC - Eye Exam Eye Exam: Normal appearance - ENT Exam ENT Exam: Mucous Membranes Dry - Respiratory Exam Respiratory Exam: NORMAL BREATHING PATTERN - Cardiovascular Exam Cardiovascular Exam: +S1, +S2 - GI/Abdominal Exam GI & Abdominal Exam: Normal Bowel Sounds Results - Vital Signs Recent Vital Signs: Last Vital Signs Temp 98.2 F 11/17/17 16:33 Pulse 95 H 11/17/17 16:33 Resp 20 11/17/17 16:33 BP 139/70 11/17/17 16:33 Pulse Ox 98 11/17/17 16:33 - Labs Result Diagrams: 11/17/17 16:44 11/17/17 05:40 Labs: Laboratory Results - last 24 hr 11/16/17 11/17/17 11/17/17 20:25 01:16 05:22 WBC RBC Hgb Hct MCV MCH MCHC RDW Plt Count Manual Plt Count MPV Neut % (Auto) Lymph % (Auto) [place] % (Auto) Eos % (Auto) Baso % (Auto) Neut # (Auto) Lymph # (Auto) [place] # (Auto) Eos # (Auto) Baso # (Auto) Neutrophils % (Manual) Band Neutrophils % Lymphocytes % (Manual) Monocytes % (Manual) Eosinophils % (Manual) Platelet Estimate Sodium Potassium Chloride Carbon Dioxide Anion Gap BUN Creatinine Est GFR ( Amer) Est GFR (Non-Af Amer) POC Glucose (mg/dL) 117 H 87 Random Glucose Calcium Total Bilirubin AST ALT Alkaline Phosphatase Total Protein Albumin Globulin Albumin/Globulin Ratio Blood Type O POSITIVE Antibody Screen Negative Crossmatch See Detail BBK History Checked Patient has bt 11/17/17 11/17/17 11/17/17 05:40 05:40 06:25 WBC 2.0 L* RBC 2.63 L Hgb 7.7 L Hct 21.9 L MCV 83.3 MCH 29.3 MCHC 35.2 RDW 15.7 H Plt Count 56 L D Manual Plt Count 52 L MPV 6.6 L Neut % (Auto) 30.7 L Lymph % (Auto) 52.2 H [place] % (Auto) 15.8 H Eos % (Auto) 0.5 Baso % (Auto) 0.8 Neut # (Auto) 0.6 L Lymph # (Auto) 1.0 [place] # (Auto) 0.3 Eos # (Auto) 0.0 Baso # (Auto) 0.0 Neutrophils % (Manual) 28 L Band Neutrophils % 1 Lymphocytes % (Manual) 58 H Monocytes % (Manual) 12 H Eosinophils % (Manual) 1 Platelet Estimate Markedly decreased L Sodium 142 Potassium 3.8 Chloride 107 Carbon Dioxide 20 L Anion Gap 19 BUN 55 H Creatinine 1.8 H Est GFR ( Amer) 44 Est GFR (Non-Af Amer) 37 POC Glucose (mg/dL) Random Glucose 93 Calcium 8.4 Total Bilirubin 0.5 AST 20 ALT 35 Alkaline Phosphatase 94 Total Protein 7.1 Albumin 3.2 L Globulin 3.9 Albumin/Globulin Ratio 0.8 L Blood Type Antibody Screen Crossmatch BBK History Checked 11/17/17 11/17/17 11/17/17 10:50 15:58 16:44 WBC RBC Hgb 8.0 L Hct 22.8 L MCV MCH MCHC RDW Plt Count Manual Plt Count MPV Neut % (Auto) Lymph % (Auto) [place] % (Auto) Eos % (Auto) Baso % (Auto) Neut # (Auto) Lymph # (Auto) [place] # (Auto) Eos # (Auto) Baso # (Auto) Neutrophils % (Manual) Band Neutrophils % Lymphocytes % (Manual) Monocytes % (Manual) Eosinophils % (Manual) Platelet Estimate Sodium Potassium Chloride Carbon Dioxide Anion Gap BUN Creatinine Est GFR ( Amer) Est GFR (Non-Af Amer) POC Glucose (mg/dL) 231 H 66 Random Glucose Calcium Total Bilirubin AST ALT Alkaline Phosphatase Total Protein Albumin Globulin Albumin/Globulin Ratio Blood Type Antibody Screen Crossmatch BBK History Checked 11/17/17 11/17/17 17:13 21:24 WBC RBC Hgb Hct MCV MCH MCHC RDW Plt Count Manual Plt Count MPV Neut % (Auto) Lymph % (Auto) [place] % (Auto) Eos % (Auto) Baso % (Auto) Neut # (Auto) Lymph # (Auto) [place] # (Auto) Eos # (Auto) Baso # (Auto) Neutrophils % (Manual) Band Neutrophils % Lymphocytes % (Manual) Monocytes % (Manual) Eosinophils % (Manual) Platelet Estimate Sodium Potassium Chloride Carbon Dioxide Anion Gap BUN Creatinine Est GFR ( Amer) Est GFR (Non-Af Amer) POC Glucose (mg/dL) 174 H 123 H Random Glucose Calcium Total Bilirubin AST ALT Alkaline Phosphatase Total Protein Albumin Globulin Albumin/Globulin Ratio Blood Type Antibody Screen Crossmatch BBK History Checked Assessment & Plan (1) Pancytopenia Assessment and Plan: Transfusion support PRN goal hgb > 9 plt > 20,000 Status: Acute (2) Myelodysplasia (myelodysplastic syndrome) Assessment and Plan: outpatient treatment Thank you for this interesting consult. Status: Acute
[2017-11-18] MEDS: Oxycodone/Acetaminophen 5/325 mg Tab PO PRN (01:53)
[2017-11-18] MEDS: Insulin Regular 100 units/ml SC SCH ×4 (07:00→21:30)
[2017-11-18 07:21] LABS: HEMOGLOBIN 7.6 g/dL (12.0-18.0); MEAN CELL VOLUME 83.2 fl (80.0-94.0); MEAN CORPUSCULAR HEMOGLOBIN 28.9 pg (27.0-31.0); MEAN CORPUSCULAR HGB CONC 34.8 g/dL (33.0-37.0); PLATELET COUNT 48 K/uL (130-400); RBC 2.63 Mil/uL (4.40-5.90); RED CELL DISTRIBUTION WIDTH 15.5 % (11.5-14.5)
[2017-11-18 07:29] LABS: WHITE BLOOD COUNT 1.7 K/uL (4.8-10.8)
[2017-11-18 07:45] LABS: CALCIUM 8.5 mg/dL (8.4-10.2)
--- NOTE | 2017-11-18 09:34 | CP.PCM.PN ---
Subjective - Date & Time of Evaluation Date of Evaluation: 11/18/17 Time of Evaluation: 08:25 - Subjective Subjective: 77 y/o M seen and examined by bedside. Pt reports feeling well but a little weak. Pt afebrile, tolerating PO, nausea last afternoon which resolved with medication. Chronic R toe pain has been aggravating since this morning. Pt denies chest pain, SOB, abdominal pain, dizziness or urinary complaints. Objective - Vital Signs/Intake and Output Vital Signs (last 24 hours): Temp Pulse Resp BP Pulse Ox 97.4 F L 75 19 142/64 99 11/18/17 07:43 11/18/17 07:43 11/18/17 07:43 11/18/17 07:43 11/18/17 07:43 - Medications Medications: Current Medications Acetaminophen (Tylenol 325mg Tab) 650 mg PO Q6 PRN PRN Reason: Pain, Mild (1-3) Cilostazol (Pletal) 100 mg PO DAILY [facility] Last Admin: 11/17/17 09:15 Dose: 100 mg Collagenase (Santyl) 1 applic TOP DAILY [facility] Last Admin: 11/17/17 09:14 Dose: 1 applic Dextrose (Dextrose 50% Inj) 0 ml IV STAT PRN; Protocol PRN Reason: Hypoglycemia Protocol Dextrose (Glutose 15) 0 gm PO ONCE PRN; Protocol PRN Reason: Hypoglycemia Protocol Epoetin Ariel (Procrit) 40,000 unit SC ONCE ONE Stop: 11/18/17 10:01 Ferrous Sulfate (Feosol) 325 mg PO TID [facility] Last Admin: 11/17/17 16:26 Dose: 325 mg Glucagon (Glucagen Diagnostic Kit) 0 mg IM STAT PRN; Protocol PRN Reason: Hypoglycemia Protocol Hydrochlorothiazide (Hydrodiuril) 25 mg PO DAILY [facility] Last Admin: 11/17/17 09:15 Dose: 25 mg Insulin Human Regular (Humulin R) 0 units SC ACHS [facility] PRN Reason: Protocol Last Admin: 11/18/17 07:00 Dose: Not Given Lidocaine HCl (Lidocaine Hydrochloride Jelly 2% 5 Ml) 1 ml TOP DAILY PRN PRN Reason: Pain, moderate (4-7) Morphine Sulfate (Morphine) 2 mg IVP Q6 PRN PRN Reason: Pain, severe (8-10) Oxycodone/Acetaminophen (Percocet 5/325 Mg Tab) 1 tab PO Q6 PRN PRN Reason: Pain, moderate (4-7) Stop: 11/19/17 20:38 Last Admin: 11/18/17 01:53 Dose: 1 tab - Labs Labs: 11/18/17 06:17 11/18/17 06:17 - Constitutional Appears: No Acute Distress - Head Exam Head Exam: NORMAL INSPECTION Additional comments: Scattered facial lesions are healing, covered w/ dry granulomatous tissue, less erythematous and less edematous than previous examinations. - ENT Exam ENT Exam: Mucous Membranes Moist Additional comments: No gingival bleeding present. - Neck Exam Neck Exam: Full ROM. absent: Lymphadenopathy, Meningismus - Respiratory Exam Respiratory Exam: Clear to Ausculation Bilateral, NORMAL BREATHING PATTERN - Cardiovascular Exam Cardiovascular Exam: +S1, +S2 - GI/Abdominal Exam GI & Abdominal Exam: Soft, Normal Bowel Sounds. absent: Guarding, Tenderness - Extremities Exam Extremities Exam: Full ROM, Normal Inspection Additional comments: R first toe: presence of hematoma, tender, less swelling than previous examinations. - Neurological Exam Neurological Exam: Alert, Awake, Oriented x3 Assessment and Plan - Assessment and Plan (Free Text) Assessment: 77 y/o M with PMHx of MDS and pancytopenia admitted for severe thrombocytopenia. Pancytopenia -Due to myelodysplatic syndrome -S/P Platelet transfusion -Hgb 7.6; WBC: 1.7; Plt 48 -Will calculate Absolute Neutrophilic Count when %Band is available. If ANC is < 500, will place neutropenic contact precautions. -As per Dr Pace, Hgb should be > 9 and Platelets >20 -Will transfuse 2 PRBC's today. -Will re-check H/H after transfusion. Myelodysplastic syndrome -Bone marrow biopsy done on 09/04/17 reported findings suggestive of myelodysplasia. -F/U hemo-oncology recommendations -Awaiting insurance approval for outpatient treatment initiation. R toe pain -Improving, but present -XR R foot: severe degenerative change of the 1st metatarsophalangeal joint on previous admission -Will increase Lidocaine 1% topical to TID. -Collagenase topical as per podiatry. -Dressing change as needed. Oral Candidiasis -Nystatin PO QID ordered. CKD stage 3B -Acute on Chronic/acute kidney injury -BUN/Cr 55/1.8 HTN -Chronic, stable -C/W Home meds: HCTZ 25mg daily -Monitor BP. DM type 2-Diet controlled -Last HbA1c 6.6 on 09/04/17 -Low dose sliding scale Prophylaxis -SCDs -Hold Lovenox due to thrombocytopenia
[2017-11-18] MEDS: Cilostazol 100 mg Tab UD PO SCH (09:52)
[2017-11-18] MEDS: Santyl Collagenase OINTMENT TOP SCH (09:53)
[2017-11-18] MEDS ORDERED: Epoetin Alfa 40000 UNIT/ml Inj SC ONE (10:00)
[2017-11-18 10:27] LABS: BASO % 0.5 % (0.0-2.0); EOS % 0.6 % (0.0-4.0); LYMPH # 1.1 K/uL (1.0-4.3); LYMPH % 64.4 % (20.0-40.0); MONO # 0.2 K/uL (0.0-0.8); MONO % 12.5 % (0.0-10.0); NEUT # 0.4 K/uL (1.8-7.0); NRBC % 0.6 % (0.0-0.0)
[2017-11-18 10:30] LABS: MEAN PLATELET VOLUME 6.6 fl (7.2-11.7)
[2017-11-18 11:14] VITALS: RESP 18
[2017-11-18] MEDS: Nystatin 100,000 Units/ml Oral Susp 5 ml UD PO SCH ×3 (13:27→21:44)
[2017-11-18] MEDS: Lidocaine 2% Jelly (5 ml) TOP SCH ×4 (13:28→21:38)
[2017-11-18 13:34] LABS: ANISOCYTOSIS SLIGHT; BANDS 4 % (0-2); EOSINOPHIL 1 % (0-7); LYMPHOCYTE 56 % (20-50); MONOCYTE 12 % (0-10); NEUTROPHIL 27 % (42-75); PLATELET ESTIMATE DECREASED (NORMAL); TOTAL CELLS COUNTED 100
[2017-11-18 13:35] LABS: HYPOCHROMIC SLIGHT; OVALOCYTES SLIGHT; SCHISTOCYTES SLIGHT; TEARDROP CELLS SLIGHT
[2017-11-18] MEDS ORDERED: Lidocaine 2% Jelly (5 ml) TOP SCH (17:00)
[2017-11-19] MEDS: Oxycodone/Acetaminophen 5/325 mg Tab PO PRN ×2 (04:01→13:27)
[2017-11-19] MEDS: Insulin Regular 100 units/ml SC SCH ×2 (07:00→12:21)
[2017-11-19 07:21] LABS: BASO % 0.5 % (0.0-2.0); EOS % 0.5 % (0.0-4.0); HEMOGLOBIN 10.6 g/dL (12.0-18.0); LYMPH # 1.1 K/uL (1.0-4.3); LYMPH % 39.1 % (20.0-40.0); MEAN CELL VOLUME 84.4 fl (80.0-94.0); MEAN CORPUSCULAR HEMOGLOBIN 29.6 pg (27.0-31.0); MEAN PLATELET VOLUME 6.4 fl (7.2-11.7); MONO # 0.4 K/uL (0.0-0.8); MONO % 13.6 % (0.0-10.0); NEUT # 1.2 K/uL (1.8-7.0); NEUT % 46.3 % (50.0-75.0); NRBC % 0.1 % (0.0-0.0); RBC 3.58 Mil/uL (4.40-5.90); RED CELL DISTRIBUTION WIDTH 15.3 % (11.5-14.5); WHITE BLOOD COUNT 2.7 K/uL (4.8-10.8)
[2017-11-19 07:54] VITALS: BP 153/73; PULSE 84; TEMP 98.1; O2SAT 98
[2017-11-19] MEDS: Cilostazol 100 mg Tab UD PO SCH (09:28)
[2017-11-19] MEDS: Nystatin 100,000 Units/ml Oral Susp 5 ml UD PO SCH ×2 (09:28→13:28)
[2017-11-19] MEDS: Santyl Collagenase OINTMENT TOP SCH (09:28)
[2017-11-19] MEDS: Lidocaine 2% Jelly (5 ml) TOP SCH ×2 (09:29→13:28)
--- NOTE | 2017-11-19 14:06 | CP.PCM.DIS ---
Provider - Provider Date of Admission: 11/16/17 18:39 Attending physician: Karina Luevano MD Primary care physician: Dr. Bassem Brown - [facility] Consults: Dr. Ty Pace - Hematology Time Spent in preparation of Discharge (in minutes): 30 Diagnosis - Discharge Diagnosis (1) Myelodysplasia (myelodysplastic syndrome) Status: Chronic (2) Thrombocytopenia Status: Chronic (3) Anemia Status: Chronic Hospital Course - Lab Results Lab Results: Most Recent Lab Values WBC 2.7 K/uL (4.8-10.8) L D 11/19/17 05:30 RBC 3.58 Mil/uL (4.40-5.90) L 11/19/17 05:30 Hgb 10.6 g/dL (12.0-18.0) L D 11/19/17 05:30 Hct 30.2 % (35.0-51.0) L 11/19/17 05:30 MCV 84.4 fl (80.0-94.0) 11/19/17 05:30 MCH 29.6 pg (27.0-31.0) 11/19/17 05:30 MCHC 35.0 g/dL (33.0-37.0) 11/19/17 05:30 RDW 15.3 % (11.5-14.5) H 11/19/17 05:30 Plt Count 34 K/uL (130-400) L 11/19/17 05:30 Manual Plt Count 52 K/uL (130-400) L 11/17/17 05:40 MPV 6.4 fl (7.2-11.7) L 11/19/17 05:30 Neut % (Auto) 46.3 % (50.0-75.0) L 11/19/17 05:30 Lymph % (Auto) 39.1 % (20.0-40.0) 11/19/17 05:30 [place] % (Auto) 13.6 % (0.0-10.0) H 11/19/17 05:30 Eos % (Auto) 0.5 % (0.0-4.0) 11/19/17 05:30 Baso % (Auto) 0.5 % (0.0-2.0) 11/19/17 05:30 Neut # (Auto) 1.2 K/uL (1.8-7.0) L 11/19/17 05:30 Lymph # (Auto) 1.1 K/uL (1.0-4.3) 11/19/17 05:30 [place] # (Auto) 0.4 K/uL (0.0-0.8) 11/19/17 05:30 Eos # (Auto) 0.0 K/uL (0.0-0.7) 11/19/17 05:30 Baso # (Auto) 0.0 K/uL (0.0-0.2) 11/19/17 05:30 Neutrophils % (Manual) 27 % (42-75) L 11/18/17 06:17 Band Neutrophils % 4 % (0-2) H 11/18/17 06:17 Lymphocytes % (Manual) 56 % (20-50) H 11/18/17 06:17 Monocytes % (Manual) 12 % (0-10) H 11/18/17 06:17 Eosinophils % (Manual) 1 % (0-7) 11/18/17 06:17 Platelet Estimate Decreased (NORMAL) L 11/18/17 06:17 Hypochromasia (manual) Slight 11/18/17 06:17 Anisocytosis (manual) Slight 11/18/17 06:17 Tear Drop Cells Slight 11/18/17 06:17 Ovalocytes Slight 11/18/17 06:17 Schistocytes Slight 11/18/17 06:17 Sodium 139 mmol/l (132-148) 11/18/17 06:17 Potassium 4.1 MMOL/L (3.6-5.0) 11/18/17 06:17 Chloride 104 mmol/L (98-107) 11/18/17 06:17 Carbon Dioxide 23 mmol/L (22-30) 11/18/17 06:17 Anion Gap 16 (10-20) 11/18/17 06:17 BUN 44 mg/dl (9-20) H 11/18/17 06:17 Creatinine 1.9 mg/dl (0.8-1.5) H 11/18/17 06:17 Est GFR ( Amer) 42 11/18/17 06:17 Est GFR (Non-Af Amer) 34 11/18/17 06:17 POC Glucose (mg/dL) 121 mg/dL (65-110) H 11/19/17 11:03 Random Glucose 96 mg/dL (75-110) 11/18/17 06:17 Calcium 8.5 mg/dL (8.4-10.2) 11/18/17 06:17 Total Bilirubin 0.5 mg/dl (0.2-1.3) 11/17/17 05:40 AST 20 U/L (17-59) 11/17/17 05:40 ALT 35 U/L (21-72) 11/17/17 05:40 Alkaline Phosphatase 94 U/L (38-126) 11/17/17 05:40 Total Protein 7.1 G/DL (6.3-8.2) 11/17/17 05:40 Albumin 3.2 g/dL (3.5-5.0) L 11/17/17 05:40 Globulin 3.9 gm/dL (2.2-3.9) 11/17/17 05:40 Albumin/Globulin Ratio 0.8 (1.0-2.1) L 11/17/17 05:40 Blood Type O POSITIVE 11/16/17 20:25 Antibody Screen Negative 11/16/17 20:25 Crossmatch See Detail 11/16/17 20:25 BBK History Checked Patient has bt 11/16/17 20:25 - Hospital Course Hospital Course: 77 year old male, with pMHx of MDS, pancytopenia, DM2, HTN admitted for management of severe thrombocytopenia (Plt count of 7k). Patient with petechiae noted. Patient received 1 platelet transfusion as well as 2U of pRBC due to anemia. Patient remained hemodynamically stable. No complications during infusions. Patient did receive 1 dose of Granix due to ANC <500. Patient with right toe pain, chronic. Pain medications provided as well as a post surgical shoe. Patient discharged with instructions to follow up with Dr Pace, Dr. Fletcher, and with Dr Brown. Discharge Exam - Head Exam Head Exam: ATRAUMATIC, NORMAL INSPECTION, NORMOCEPHALIC - Eye Exam Eye Exam: Normal appearance - ENT Exam Additional comments: No gingival bleeding present. - Respiratory Exam Respiratory Exam: Clear to PA & Lateral, NORMAL BREATHING PATTERN, UNREMARKABLE - Cardiovascular Exam Cardiovascular Exam: REGULAR RHYTHM, RRR, +S1, +S2, Systolic Murmur - GI/Abdominal Exam GI & Abdominal Exam: Normal Bowel Sounds, Soft. absent: Tenderness - Extremities Exam Additional comments: R first toe: presence of hematoma distally, tender, no increase in size, no surrounding erythema/edema - Back Exam Back exam: NORMAL INSPECTION - Neurological Exam Neurological exam: Alert, Oriented x3 - Psychiatric Exam Psychiatric exam: Normal Affect, Normal Mood - Skin Skin Exam: Dry, Intact, Normal Color, Warm Discharge Plan - Discharge Medications Prescriptions: Morphine [Morphine Sulfate] 15 mg PO Q6 PRN #20 tab PRN Reason: Pain, Severe (8-10) - Follow Up Plan Condition: STABLE Disposition: HOME/ ROUTINE Instructions: Bleeding Precautions, Myelodysplastic Syndromes (DC) Additional Instructions: Please follow up with your scheduled appointment with Dr. Stephanie Bender at 3 :20pm. Follow up with Dr. Ty Pace, Manager Business Planning. Follow up with Dr. Fletcher at [facility] Monday November 27, 2017 , call [phone] to make appointment. Return to emergency room if any new/worsening symptoms. Take medications as prescribed. Referrals: [facility] [Outside] Ty Pace MD [Staff Provider] -
--- NOTE | 2017-11-19 23:06 | CP.PCM.PN ---
Subjective - Date & Time of Evaluation Date of Evaluation: 11/18/17 Time of Evaluation: 16:00 - Subjective Subjective: Has toe pain. Objective - Vital Signs/Intake and Output Vital Signs (last 24 hours): Temp Pulse Resp BP Pulse Ox 98.1 F 84 18 153/73 H 98 11/19/17 07:54 11/19/17 07:54 11/19/17 07:54 11/19/17 07:54 11/19/17 07:54 - Labs Labs: 11/19/17 05:30 11/18/17 06:17 - Head Exam Head Exam: ATRAUMATIC - Eye Exam Eye Exam: Normal appearance - ENT Exam ENT Exam: Mucous Membranes Dry - Respiratory Exam Respiratory Exam: NORMAL BREATHING PATTERN - Cardiovascular Exam Cardiovascular Exam: +S1, +S2 - GI/Abdominal Exam GI & Abdominal Exam: Normal Bowel Sounds Assessment and Plan (1) Pancytopenia Assessment & Plan: secondary to MDS transfusion support Status: Acute (2) Myelodysplasia (myelodysplastic syndrome) Assessment & Plan: outpatient treatment Status: Chronic
== END 2017-11-19 15:13 | disposition home or self-care (01) | DRG 574 ==
LOC: H.ER 16:45 → OBSVTOIN 18:39 → H.ERHOLD 18:39 → H.MEDSURG1 21:22
PROVIDERS: ADMIT Family Medicine Geriatric Medicine; ATTEND Family Medicine Geriatric Medicine
PROC: 30233R1 Transfusion of Nonautologous Platelets into Peripheral Vein, Percutaneous Approach (ICD-10-PCS; principal; 2017-11-17)
PROC: 30233N1 Transfusion of Nonautologous Red Blood Cells into Peripheral Vein, Percutaneous Approach (ICD-10-PCS; 2017-11-18)
DX: D46.9 Myelodysplastic syndrome, unspecified (principal); N17.9 Acute kidney failure, unspecified; B37.0 Candidal stomatitis; D61.818 Other pancytopenia; E11.22 Type 2 diabetes mellitus with diabetic chronic kidney disease; I12.0 Hypertensive chronic kidney disease with stage 5 chronic kidney disease or end stage renal disease; N18.5 Chronic kidney disease, stage 5; D69.6 Thrombocytopenia, unspecified; E78.00 Pure hypercholesterolemia, unspecified; E78.5 Hyperlipidemia, unspecified; Z79.899 Other long term (current) drug therapy; Z80.8 Family history of malignant neoplasm of other organs or systems; Z83.3 Family history of diabetes mellitus; Z87.442 Personal history of urinary calculi; M21.612 Bunion of left foot; M79.674 Pain in right toe(s)

== ENCOUNTER 2017-11-22 13:39 | Observation (INO) | payer MEDICAID ==
[2017-11-22] MEDS ORDERED: Sodium Chloride 0.9% 1,000 ML IV STA (14:48)
--- NOTE | 2017-11-22 14:48 | ED PDOC ---
HPI: General Adult Time Seen by Provider: 11/22/17 14:46 Chief Complaint (Nursing): Weakness/Neurological Deficit Chief Complaint (Provider): WEAKNESS History Per: Patient (77 Y/O MALE H/O MYELODYSPLASIA HERE WITH BLURRY VISION AND WEANESS THAT OCCURRED TODAY EARLIER NOW IMPROVED. STATES HE HAS HAD RECENT TRANSFUSION 3 DAYS AGO AND HAS HAD IRON SUPPLEMENTS GIVEN CAUSING CONSTIPATION. HAS BEEN STRAINING AND NOTES MODERATE RECTAL PAIN/TENDERNESS. DENIES ANY BLOODY STOOLS.) Past Medical History Reviewed: Historical Data, Nursing Documentation, Vital Signs Vital Signs: Last Vital Signs Temp 98.2 F 11/22/17 13:43 Pulse 80 11/22/17 13:43 Resp 16 11/22/17 13:43 BP 149/73 11/22/17 13:43 Pulse Ox 98 11/22/17 19:11 - Medical History PMH: HTN, Hypercholesterolemia, Kidney Stones - Family History Family History: States: No Known Family Hx - Home Medications Home Medications: Ambulatory Orders Medication Instructions Recorded Acetaminophen [Tylenol 325mg tab] 325 mg PO Q6 PRN #30 tab 10/18/17 Cilostazol [Pletal] 100 mg PO DAILY #30 tab 10/25/17 Ferrous Sulfate [Feosol] 325 mg PO TID 11/01/17 Lidocaine 5% 1 appl TOP HS 11/01/17 Lidocaine 2% [Xylocaine 2%] 1 applic TOP HS tube 11/03/17 Collagenase [Santyl] 1 applic TOP DAILY 30 Days tube 11/12/17 hydroCHLOROthiazide [Hydrodiuril] 25 mg PO DAILY #30 tab 11/12/17 Morphine [Morphine Sulfate] 15 mg PO Q6 PRN #20 tab 11/19/17 Acetaminophen [Tylenol 325mg tab] 325 mg PO Q6 PRN 11/22/17 Cilostazol [Pletal] 100 mg PO DAILY 11/22/17 Collagenase [Santyl] 1 appl TOP DAILY 11/22/17 Docusate [Colace] 100 mg PO DAILY 11/22/17 Ferrous Sulfate [Feosol] 325 mg PO TID 11/22/17 Lidocaine 2% [Xylocaine 2%] 1 appl TOP HS 11/22/17 hydroCHLOROthiazide [Hydrodiuril] 25 mg PO DAILY 11/22/17 - Allergies Allergies/Adverse Reactions: Allergies Allergy/AdvReac Type Severity Reaction Status Date / Time No Known Allergies Allergy Verified 10/09/17 18:50 Review of Systems ROS Statement: Except As Marked, All Systems Reviewed And Found Negative Physical Exam - Reviewed Nursing Documentation Reviewed: Yes Vital Signs Reviewed: Yes - Physical Exam Appears: Positive for: Well, Non-toxic, No Acute Distress Head Exam: Positive for: ATRAUMATIC, NORMAL INSPECTION, NORMOCEPHALIC Skin: Positive for: Normal Color, Warm, DRY Eye Exam: Positive for: EOMI, Normal appearance, PERRL ENT: Positive for: Normal ENT Inspection Neck: Positive for: Normal, Painless ROM Cardiovascular/Chest: Positive for: Regular Rate, Rhythm Respiratory: Positive for: CNT, Normal Breath Sounds Gastrointestinal/Abdominal: Positive for: Normal Exam, Soft Back: Positive for: Normal Inspection Extremity: Positive for: Normal ROM Neurologic/Psych: Positive for: Alert, Oriented - Laboratory Results Result Diagrams: 11/22/17 14:45 11/22/17 14:45 - ECG O2 Sat by Pulse Oximetry: 98 - Progress ED Course And Treament: HEAD CT: IMPRESSION: No acute intracranial abnormalities. No significant findings to account for the clinical presentation. No significant interval change compared to the prior examination(s). d/w dr. Pace Disposition - Clinical Impression Clinical Impression: Thrombocytopenia - Patient ED Disposition Is Patient to be Admitted: Yes - Disposition Disposition Time: 19:23 Condition: FAIR Forms: [facility] (Kyrgyz) - Pt Status Changed To: Hospital Disposition Of: Observation
[2017-11-22 14:51] VITALS: BMI 21.9
[2017-11-22 15:04] LABS: BASO % 0.6 % (0.0-2.0); EOS % 0.4 % (0.0-4.0); HEMOGLOBIN 10.8 g/dL (12.0-18.0); LYMPH # 1.3 K/uL (1.0-4.3); LYMPH % 56.2 % (20.0-40.0); MEAN CELL VOLUME 85.1 fl (80.0-94.0); MEAN CORPUSCULAR HEMOGLOBIN 29.5 pg (27.0-31.0); MEAN CORPUSCULAR HGB CONC 34.7 g/dL (33.0-37.0); MEAN PLATELET VOLUME 8.5 fl (7.2-11.7); MONO # 0.3 K/uL (0.0-0.8); MONO % 11.3 % (0.0-10.0); NEUT # 0.7 K/uL (1.8-7.0); NEUT % 31.5 % (50.0-75.0); NRBC % 0.4 % (0.0-0.0); RBC 3.68 Mil/uL (4.40-5.90); RED CELL DISTRIBUTION WIDTH 15.8 % (11.5-14.5); WHITE BLOOD COUNT 2.4 K/uL (4.8-10.8)
[2017-11-22 15:14] LABS: ALB/GLOB RATIO 0.8 (1.0-2.1); ALBUMIN 3.5 g/dL (3.5-5.0); ALT/SGPT 35 U/L (21-72); AST/SGOT 20 U/L (17-59); BLOOD UREA NITROGEN 62 mg/dl (9-20); GFR AFRICAN-AMERICAN 33; GFR NON-AFRICAN AMERICAN 28
--- NOTE | 2017-11-22 16:49 | CT ---
PROCEDURE: CT HEAD WITHOUT CONTRAST. HISTORY: DIZZY COMPARISON: 04/16/2013 TECHNIQUE: Axial computed tomography images were obtained through the head/brain without intravenous contrast. Coronal and sagittal reconstructed images. All normal Radiation dose: Total exam DLP = 812.41 mGy-cm. This CT exam was performed using one or more of the following dose reduction techniques: Automated exposure control, adjustment of the mA and/or kV according to patient size, and/or use of iterative reconstruction technique. FINDINGS: HEMORRHAGE: No intracranial hemorrhage. BRAIN: No mass effect or edema. Age related senescent changes. . VENTRICLES: Unremarkable. No hydrocephalus. CALVARIUM: Unremarkable. PARANASAL SINUSES: Unremarkable as visualized. No significant inflammatory changes. MASTOID AIR CELLS: Unremarkable as visualized. No inflammatory changes. OTHER FINDINGS: None. IMPRESSION: No acute intracranial abnormalities. No significant findings to account for the clinical presentation. No significant interval change compared to the prior examination(s).
[2017-11-22] MEDS ORDERED: Anusol Suppository ONE (20:22)
[2017-11-22] MEDS: Sodium Chloride 0.9% 1,000 ML IV SCH (20:23)
--- NOTE | 2017-11-22 20:25 | CP.PCM.HP ---
History of Present Illness - History of Present Illness History of Present Illness: 77 yo M with a PMHx of Myelodysplastic Syndrome, Pancytopenia, CKD, HTN, DM with recent platelet transfusion and 2 Units of PRBC. He had just been discharged on 11/21/17. He returned today accompanied by his nephew, he had been feeling tired and was having some blurring of vision. Denies any chest pain, SOB ,palpitation or motor weakness. Currently symptoms have resolved patient denies any more blurring of vision. - Patient states his constipation has worsened with taking his iron supplementation. He has been taking colace daily. Denies any blood in his stools. His last bowl moment was this morning. Currently describes rectal discomfort more after he was checked for Occult blood. His toe pain is controlled compared to the previous admission. Patient has an appointment with Dr. Pace and now has insurance Denies any active bleeding, hemoptoisis, hematuria, or melena. Pt denies fever, chills. chest pain, SOB, nausea, change in bowel movement or peripheral edema. PMD: [facility]:(Dr. Brown) Last visit 11/21/17 Hemo-Onc: Dr Pace NKDA Home meds: >Cilostazol 100 mg PO Daily >Feosol 325 mg PO TID >HCTZ 25 mg PO daily >Lidocaine 2% cream PMHx: diet-controlled DM2, HTN, Myelodysplastic Syndrome, Pancytopenia, CKD. PSHx: L foot bunion FHx: mother has bone cancer, other family members w/ DM2 SHx: denies smoking now and in the past, denies alcohol use, denies drug use Next of kin: Ottoniel Diaz (son) [phone] Code status: full code Present on Admission - Present on Admission Any Indicators Present on Admission: No Past Patient History - Infectious Disease Hx of Infectious Diseases: None - Past Medical History & Family History Past Medical History?: Yes - Past Social History Smoking Status: Never Smoked - CARDIAC Hx Hypercholesterolemia: Yes Hx Hypertension: Yes - PULMONARY Hx Respiratory Disorders: No - NEUROLOGICAL Hx Neurological Disorder: No - HEENT Hx HEENT Problems: No - RENAL Hx Kidney Stones: Yes - ENDOCRINE/METABOLIC Hx Diabetes Mellitus Type 2: Yes - HEMATOLOGICAL/ONCOLOGICAL Other/Comment: MDS - INTEGUMENTARY Hx Dermatological Problems: No - MUSCULOSKELETAL/RHEUMATOLOGICAL Hx Musculoskeletal Disorders: No Hx Falls: Yes - GASTROINTESTINAL Hx Gastrointestinal Disorders: No - GENITOURINARY/GYNECOLOGICAL Hx Genitourinary Disorders: No - PSYCHIATRIC Hx Substance Use: No - SURGICAL HISTORY Other/Comment: Bunion - ANESTHESIA Hx Anesthesia: Yes Hx Anesthesia Reactions: No Meds Allergies/Adverse Reactions: Allergies Allergy/AdvReac Type Severity Reaction Status Date / Time No Known Allergies Allergy Verified 10/09/17 18:50 Physical Exam - Constitutional Appears: No Acute Distress - Head Exam Head Exam: NORMAL INSPECTION - Eye Exam Eye Exam: Normal appearance - ENT Exam ENT Exam: Mucous Membranes Moist - Respiratory Exam Respiratory Exam: Clear to Auscultation Bilateral, NORMAL BREATHING PATTERN. absent: Rhonchi, Wheezes - Cardiovascular Exam Cardiovascular Exam: REGULAR RHYTHM, +S1, +S2 - GI/Abdominal Exam GI & Abdominal Exam: Normal Bowel Sounds, Soft. absent: Tenderness - Extremities Exam Extremities exam: Positive for: normal inspection. Negative for: calf tenderness Additional comments: Right toe bandage appear C/D/I. Pulses 2+ B/l - Back Exam Back exam: NORMAL INSPECTION. absent: CVA tenderness (L), CVA tenderness (R) - Neurological Exam Neurological exam: Alert, CN II-XII Intact, Oriented x3 - Skin Skin Exam: Normal Color, Warm Additional comments: scattered peticae noted on lower extremities b/l 3x 4 cm bruise noted on medial portion of right arm. Results - Vital Signs Recent Vital Signs: Last Vital Signs Temp 98.2 F 11/22/17 13:43 Pulse 80 11/22/17 13:43 Resp 16 11/22/17 13:43 BP 149/73 11/22/17 13:43 Pulse Ox 98 11/22/17 19:23 - Labs Result Diagrams: 11/22/17 14:45 11/22/17 14:45 Labs: Laboratory Results - last 24 hr 11/22/17 11/22/17 11/22/17 14:43 14:45 14:45 WBC 2.4 L RBC 3.68 L Hgb 10.8 L Hct 31.3 L MCV 85.1 MCH 29.5 MCHC 34.7 RDW 15.8 H Plt Count 16 L* D Manual Plt Count MPV 8.5 Neut % (Auto) 31.5 L Lymph % (Auto) 56.2 H [place] % (Auto) 11.3 H Eos % (Auto) 0.4 Baso % (Auto) 0.6 Neut # (Auto) 0.7 L Lymph # (Auto) 1.3 [place] # (Auto) 0.3 Eos # (Auto) 0.0 Baso # (Auto) 0.0 Sodium 138 Potassium 4.2 Chloride 102 Carbon Dioxide 22 Anion Gap 18 BUN 62 H Creatinine 2.3 H Est GFR ( Amer) 33 Est GFR (Non-Af Amer) 28 POC Glucose (mg/dL) 113 H Random Glucose 124 H Calcium 9.0 Total Bilirubin 0.7 AST 20 ALT 35 Alkaline Phosphatase 155 H D Troponin I < 0.0120 Total Protein 7.8 Albumin 3.5 Globulin 4.3 H Albumin/Globulin Ratio 0.8 L Stool Occult Blood Blood Type Antibody Screen BBK History Checked 11/22/17 11/22/17 11/22/17 14:45 14:45 17:51 WBC RBC Hgb Hct MCV MCH MCHC RDW Plt Count Manual Plt Count 18 L* MPV Neut % (Auto) Lymph % (Auto) [place] % (Auto) Eos % (Auto) Baso % (Auto) Neut # (Auto) Lymph # (Auto) [place] # (Auto) Eos # (Auto) Baso # (Auto) Sodium Potassium Chloride Carbon Dioxide Anion Gap BUN Creatinine Est GFR ( Amer) Est GFR (Non-Af Amer) POC Glucose (mg/dL) Random Glucose Calcium Total Bilirubin AST ALT Alkaline Phosphatase Troponin I Total Protein Albumin Globulin Albumin/Globulin Ratio Stool Occult Blood Negative Blood Type O POSITIVE Antibody Screen Negative BBK History Checked Patient has bt Assessment & Plan - Assessment and Plan (Free Text) Assessment: 77 y/o M with PMHx of MDS and pancytopenia admitted for severe thrombocytopenia and dehydration Pancytopenia -Due to myelodysplatic syndrome -1 unit platelets ordered -Hgb: 10.8, Manual platelet: 18, WBC: 2.4 -As per Dr Pace, Hgb should be > 9 and Platelets >20 -Will re-check manual platelets after transfusion Myelodysplastic syndrome -Bone marrow biopsy done on 09/04/17 reported findings suggestive of myelodysplasia. -F/U hemo-oncology recommendations - Patient has appointment next week to initiate treatment. Patients insurance is now active Constipation - Continue with colace - lactolose order given Hemoroids and rectal discomfort - Proctofoam R toe pain - better then previous admission -XR R foot: severe degenerative change of the 1st metatarsophalangeal joint on previous admission -Collagenase topical as per podiatry. -Dressing change as needed. CKD stage 3B -Acute on Chronic/acute kidney injury -BUN/Cr 62/2.3 - C/W IVF HTN -Chronic, stable -C/W Home meds: HCTZ 25mg daily -Monitor BP. DM type 2-Diet controlled -Last HbA1c 6.6 on 09/04/17 Prophylaxis -SCDs
[2017-11-22] MEDS: Hydrocortisone 2.5% (Rectal) CREAM PR SCH (20:28)
[2017-11-22] MEDS ORDERED: Dextrose 50% SYRINGE Inj (50 ml) IV PRN (20:32)
[2017-11-22] MEDS ORDERED: Glucagon Recombinant 1 mg Inj IM PRN (20:32)
[2017-11-22] MEDS ORDERED: Lidocaine 2% GEL TOP SCH (22:00)
[2017-11-22] MEDS: Insulin Regular 100 units/ml SC SCH (22:35)
[2017-11-23] MEDS ORDERED: Lidocaine 2% Jelly (5 ml) TOP SCH (05:15)
[2017-11-23] MEDS ORDERED: Docusate-Senna 50 mg-8.6 mg Tab PO STA (05:30)
[2017-11-23] MEDS: Sodium Chloride 0.9% 1,000 ML IV SCH ×2 (05:33→13:22)
[2017-11-23] MEDS: Insulin Regular 100 units/ml SC SCH ×3 (06:45→16:42)
[2017-11-23 07:34] LABS: ALB/GLOB RATIO 0.9 (1.0-2.1); ALBUMIN 3.8 g/dL (3.5-5.0); CALCIUM 8.9 mg/dL (8.4-10.2)
[2017-11-23 07:49] LABS: HEMOGLOBIN 11.4 g/dL (12.0-18.0); MEAN CELL VOLUME 84.1 fl (80.0-94.0); MEAN CORPUSCULAR HEMOGLOBIN 29.4 pg (27.0-31.0); PLATELET COUNT 43 K/uL (130-400); RBC 3.86 Mil/uL (4.40-5.90); RED CELL DISTRIBUTION WIDTH 15.7 % (11.5-14.5)
[2017-11-23 07:51] LABS: WHITE BLOOD COUNT 1.8 K/uL (4.8-10.8)
[2017-11-23] MEDS ORDERED: Cilostazol 100 mg Tab UD PO SCH ×2 (09:00)
[2017-11-23] MEDS ORDERED: Santyl Collagenase OINTMENT TOP SCH (09:00)
[2017-11-23 09:10] VITALS: TEMP 97.7
[2017-11-23 09:39] LABS: PLATELET COUNT MANUAL 23 K/uL (130-400)
[2017-11-23] MEDS: Hydrocortisone 2.5% (Rectal) CREAM PR SCH ×2 (10:06→16:42)
--- NOTE | 2017-11-23 11:59 | CARD ---
APPROVED REPORT EKG Measurement Heart [id number] <Conclusion> Normal sinus rhythm Normal ECG
--- NOTE | 2017-11-23 12:33 | CP.PCM.CON ---
Past Patient History - Infectious Disease Hx of Infectious Diseases: None - Past Medical History & Family History Past Medical History?: Yes - Past Social History Smoking Status: Never Smoked - CARDIAC Hx Hypercholesterolemia: Yes Hx Hypertension: Yes - PULMONARY Hx Respiratory Disorders: No - NEUROLOGICAL Hx Neurological Disorder: No - HEENT Hx HEENT Problems: No - RENAL Hx Kidney Stones: Yes - ENDOCRINE/METABOLIC Hx Diabetes Mellitus Type 2: Yes - HEMATOLOGICAL/ONCOLOGICAL Other/Comment: MDS - INTEGUMENTARY Hx Dermatological Problems: No - MUSCULOSKELETAL/RHEUMATOLOGICAL Hx Musculoskeletal Disorders: No Hx Falls: Yes - GASTROINTESTINAL Hx Gastrointestinal Disorders: No - GENITOURINARY/GYNECOLOGICAL Hx Genitourinary Disorders: No - PSYCHIATRIC Hx Substance Use: No - SURGICAL HISTORY Other/Comment: Bunion - ANESTHESIA Hx Anesthesia: Yes Hx Anesthesia Reactions: No Meds Allergies/Adverse Reactions: Allergies Allergy/AdvReac Type Severity Reaction Status Date / Time No Known Allergies Allergy Verified 10/09/17 18:50 - Medications Medications: Current Medications Acetaminophen (Tylenol 325mg Tab) 650 mg PO Q4 PRN PRN Reason: Pain, Mild (1-3) Cilostazol (Pletal) 100 mg PO DAILY [facility] Last Admin: 11/23/17 10:07 Dose: 100 mg Collagenase (Santyl) 1 applic TOP DAILY [facility] Last Admin: 11/23/17 10:07 Dose: 1 applic Dextrose (Dextrose 50% Inj) 0 ml IV STAT PRN; Protocol PRN Reason: Hypoglycemia Protocol Dextrose (Glutose 15) 0 gm PO ONCE PRN; Protocol PRN Reason: Hypoglycemia Protocol Docusate Sodium (Colace) 100 mg PO DAILY [facility] Last Admin: 11/23/17 10:07 Dose: 100 mg Ferrous Sulfate (Feosol) 325 mg PO TID [facility] Last Admin: 11/23/17 10:07 Dose: 325 mg Glucagon (Glucagen Diagnostic Kit) 0 mg IM STAT PRN; Protocol PRN Reason: Hypoglycemia Protocol Hydrochlorothiazide (Hydrodiuril) 25 mg PO DAILY [facility] Last Admin: 11/23/17 10:06 Dose: 25 mg Hydrocortisone (Anusol-Hc) 1 applic [place] BID [facility] Last Admin: 11/23/17 10:06 Dose: 1 applic Sodium Chloride (Sodium Chloride 0.9%) 1,000 mls @ 125 mls/hr IV .Q8H [facility] Stop: 11/23/17 20:02 Last Admin: 11/23/17 05:33 Dose: 125 mls/hr Insulin Human Regular (Humulin R) 0 units SC ACHS [place] PRN Reason: Protocol Last Admin: 11/23/17 06:45 Dose: Not Given Lidocaine HCl (Lidocaine Hydrochloride Jelly 2% 5 Ml) 1 ml TOP HS [facility] Last Admin: 11/23/17 05:31 Dose: 1 ml Ondansetron HCl (Zofran Odt) 4 mg PO Q8H PRN PRN Reason: Nausea/Vomiting Tramadol HCl (Ultram) 50 mg PO Q4 PRN PRN Reason: Pain, moderate (4-7) Last Admin: 11/23/17 10:13 Dose: 50 mg Results - Vital Signs Recent Vital Signs: Last Vital Signs Temp 97.7 F 11/23/17 09:00 Pulse 85 11/23/17 09:00 Resp 19 11/23/17 10:08 BP 156/67 H 11/23/17 10:08 Pulse Ox 98 11/23/17 10:08 - Labs Result Diagrams: 11/23/17 05:30 11/23/17 05:30 Labs: Laboratory Results - last 24 hr 11/22/17 11/22/17 11/22/17 14:43 14:45 14:45 WBC 2.4 L RBC 3.68 L Hgb 10.8 L Hct 31.3 L MCV 85.1 MCH 29.5 MCHC 34.7 RDW 15.8 H Plt Count 16 L* D Manual Plt Count MPV 8.5 Neut % (Auto) 31.5 L Lymph % (Auto) 56.2 H Parker % (Auto) 11.3 H Eos % (Auto) 0.4 Baso % (Auto) 0.6 Neut # (Auto) 0.7 L Lymph # (Auto) 1.3 Parker # (Auto) 0.3 Eos # (Auto) 0.0 Baso # (Auto) 0.0 Sodium 138 Potassium 4.2 Chloride 102 Carbon Dioxide 22 Anion Gap 18 BUN 62 H Creatinine 2.3 H Est GFR ( Amer) 33 Est GFR (Non-Af Amer) 28 POC Glucose (mg/dL) 113 H Random Glucose 124 H Calcium 9.0 Total Bilirubin 0.7 AST 20 ALT 35 Alkaline Phosphatase 155 H D Troponin I < 0.0120 Total Protein 7.8 Albumin 3.5 Globulin 4.3 H Albumin/Globulin Ratio 0.8 L Stool Occult Blood Blood Type Antibody Screen BBK History Checked 11/22/17 11/22/17 11/22/17 14:45 14:45 17:51 WBC RBC Hgb Hct MCV MCH MCHC RDW Plt Count Manual Plt Count 18 L* MPV Neut % (Auto) Lymph % (Auto) Parker % (Auto) Eos % (Auto) Baso % (Auto) Neut # (Auto) Lymph # (Auto) Parker # (Auto) Eos # (Auto) Baso # (Auto) Sodium Potassium Chloride Carbon Dioxide Anion Gap BUN Creatinine Est GFR ( Amer) Est GFR (Non-Af Amer) POC Glucose (mg/dL) Random Glucose Calcium Total Bilirubin AST ALT Alkaline Phosphatase Troponin I Total Protein Albumin Globulin Albumin/Globulin Ratio Stool Occult Blood Negative Blood Type O POSITIVE Antibody Screen Negative BBK History Checked Patient has bt 11/22/17 11/22/17 11/23/17 20:44 22:11 05:30 WBC 1.8 L* RBC 3.86 L Hgb 11.4 L Hct 32.4 L MCV 84.1 MCH 29.4 MCHC 35.0 RDW 15.7 H Plt Count 43 L D Manual Plt Count 23 L* MPV Neut % (Auto) Lymph % (Auto) Parker % (Auto) Eos % (Auto) Baso % (Auto) Neut # (Auto) Lymph # (Auto) Parker # (Auto) Eos # (Auto) Baso # (Auto) Sodium Potassium Chloride Carbon Dioxide Anion Gap BUN Creatinine Est GFR ( Amer) Est GFR (Non-Af Amer) POC Glucose (mg/dL) 194 H 127 H Random Glucose Calcium Total Bilirubin AST ALT Alkaline Phosphatase Troponin I Total Protein Albumin Globulin Albumin/Globulin Ratio Stool Occult Blood Blood Type Antibody Screen BBK History Checked 11/23/17 11/23/17 11/23/17 05:30 06:12 11:47 WBC RBC Hgb Hct MCV MCH MCHC RDW Plt Count Manual Plt Count MPV Neut % (Auto) Lymph % (Auto) Parker % (Auto) Eos % (Auto) Baso % (Auto) Neut # (Auto) Lymph # (Auto) Parker # (Auto) Eos # (Auto) Baso # (Auto) Sodium 136 Potassium 3.8 Chloride 100 Carbon Dioxide 25 Anion Gap 15 BUN 51 H Creatinine 1.7 H Est GFR ( Amer) 47 Est GFR (Non-Af Amer) 39 POC Glucose (mg/dL) 120 H 121 H Random Glucose 139 H Calcium 8.9 Total Bilirubin 0.9 AST 22 ALT 33 Alkaline Phosphatase 150 H Troponin I Total Protein 7.9 Albumin 3.8 Globulin 4.1 H Albumin/Globulin Ratio 0.9 L Stool Occult Blood Blood Type Antibody Screen BBK History Checked
[2017-11-23 12:46] LABS: BANDS 2 % (0-2); EOSINOPHIL 2 % (0-7); LYMPHOCYTE 54 % (20-50); MONOCYTE 4 % (0-10); NEUTROPHIL 38 % (42-75); PLATELET ESTIMATE DECREASED (NORMAL); TOTAL CELLS COUNTED 100
[2017-11-23 12:47] LABS: ANISOCYTOSIS SLIGHT; HYPOCHROMIC SLIGHT; OVALOCYTES SLIGHT
[2017-11-23 12:48] LABS: TEARDROP CELLS SLIGHT
[2017-11-23 16:25] VITALS: BP 149/73; PULSE 74; RESP 20; O2SAT 99
--- NOTE | 2017-11-23 17:30 | CP.PCM.DIS ---
Provider - Provider Date of Admission: 11/22/17 19:22 Attending physician: Karina Luevano MD Primary care physician: Dr Brown at [facility]. Consults: Hematology: Dr Pace. Time Spent in preparation of Discharge (in minutes): 25 Diagnosis - Discharge Diagnosis (1) Constipation Status: Acute Comment: -On Colace and Senokot S. (2) Thrombocytopenia Status: Chronic Comment: -S/P platelet transfusion overnight. 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 Hospital Course - Lab Results Lab Results: Most Recent Lab Values WBC 1.8 K/uL (4.8-10.8) L* 11/23/17 05:30 RBC 3.86 Mil/uL (4.40-5.90) L 11/23/17 05:30 Hgb 11.4 g/dL (12.0-18.0) L 11/23/17 05:30 Hct 32.4 % (35.0-51.0) L 11/23/17 05:30 MCV 84.1 fl (80.0-94.0) 11/23/17 05:30 MCH 29.4 pg (27.0-31.0) 11/23/17 05:30 MCHC 35.0 g/dL (33.0-37.0) 11/23/17 05:30 RDW 15.7 % (11.5-14.5) H 11/23/17 05:30 Plt Count 43 K/uL (130-400) L D 11/23/17 05:30 Manual Plt Count 23 K/uL (130-400) L* 11/23/17 05:30 MPV 8.5 fl (7.2-11.7) 11/22/17 14:45 Neut % (Auto) 31.5 % (50.0-75.0) L 11/22/17 14:45 Lymph % (Auto) 56.2 % (20.0-40.0) H 11/22/17 14:45 [place] % (Auto) 11.3 % (0.0-10.0) H 11/22/17 14:45 Eos % (Auto) 0.4 % (0.0-4.0) 11/22/17 14:45 Baso % (Auto) 0.6 % (0.0-2.0) 11/22/17 14:45 Neut # (Auto) 0.7 K/uL (1.8-7.0) L 11/22/17 14:45 Lymph # (Auto) 1.3 K/uL (1.0-4.3) 11/22/17 14:45 [place] # (Auto) 0.3 K/uL (0.0-0.8) 11/22/17 14:45 Eos # (Auto) 0.0 K/uL (0.0-0.7) 11/22/17 14:45 Baso # (Auto) 0.0 K/uL (0.0-0.2) 11/22/17 14:45 Neutrophils % (Manual) 38 % (42-75) L 11/23/17 05:30 Band Neutrophils % 2 % (0-2) 11/23/17 05:30 Lymphocytes % (Manual) 54 % (20-50) H 11/23/17 05:30 Monocytes % (Manual) 4 % (0-10) 11/23/17 05:30 Eosinophils % (Manual) 2 % (0-7) 11/23/17 05:30 Platelet Estimate Decreased (NORMAL) L 11/23/17 05:30 Hypochromasia (manual) Slight 11/23/17 05:30 Anisocytosis (manual) Slight 11/23/17 05:30 Tear Drop Cells Slight 11/23/17 05:30 Ovalocytes Slight 11/23/17 05:30 Sodium 136 mmol/l (132-148) 11/23/17 05:30 Potassium 3.8 MMOL/L (3.6-5.0) 11/23/17 05:30 Chloride 100 mmol/L (98-107) 11/23/17 05:30 Carbon Dioxide 25 mmol/L (22-30) 11/23/17 05:30 Anion Gap 15 (10-20) 11/23/17 05:30 BUN 51 mg/dl (9-20) H 11/23/17 05:30 Creatinine 1.7 mg/dl (0.8-1.5) H 11/23/17 05:30 Est GFR ( Amer) 47 11/23/17 05:30 Est GFR (Non-Af Amer) 39 11/23/17 05:30 POC Glucose (mg/dL) 133 mg/dL (65-110) H 11/23/17 15:38 Random Glucose 139 mg/dL (75-110) H 11/23/17 05:30 Calcium 8.9 mg/dL (8.4-10.2) 11/23/17 05:30 Total Bilirubin 0.9 mg/dl (0.2-1.3) 11/23/17 05:30 AST 22 U/L (17-59) 11/23/17 05:30 ALT 33 U/L (21-72) 11/23/17 05:30 Alkaline Phosphatase 150 U/L (38-126) H 11/23/17 05:30 Troponin I < 0.0120 ng/mL (0.00-0.120) 11/22/17 14:45 Total Protein 7.9 G/DL (6.3-8.2) 11/23/17 05:30 Albumin 3.8 g/dL (3.5-5.0) 11/23/17 05:30 Globulin 4.1 gm/dL (2.2-3.9) H 11/23/17 05:30 Albumin/Globulin Ratio 0.9 (1.0-2.1) L 11/23/17 05:30 Stool Occult Blood Negative (NEGATIVE) 11/22/17 14:45 Blood Type O POSITIVE 11/22/17 14:45 Antibody Screen Negative 11/22/17 14:45 BBK History Checked Patient has bt 11/22/17 14:45 - Hospital Course Hospital Course: 77 y/o M with a PMHx of MDS, pancitopenia, DM2, HTN admitted for management of severe thrombocytopenia. Pt received platelet transfusion. Pt remained hemodynamically stable after platelet transfusion. Constipation was managed with lactulose, colace and senokot s. Hospitalization was complicated by urinary incontinence. Pt assumed it was due to rectal pain after rectal exam and sample taken for FOBT. Post-void volume 229mL. Pt stable, tolerating PO, had a bowel movement this morning, d/c home, will f/u with Dr Pace for MDS management. Medications added: -Senokot S 1 tab HS -Annucort 2.5%, topical use BID -Flomax 0.4mg PO daily. Home meds: >Cilostazol 100 mg PO Daily >Feosol 325 mg PO TID >HCTZ 25 mg PO daily >Lidocaine 2% cream - Date & Time of H&P Date of H&P: 11/22/17 Time of H&P: 20:15 Discharge Exam - Head Exam Head Exam: NORMAL INSPECTION - Eye Exam Eye Exam: EOMI, Normal appearance - ENT Exam ENT Exam: Mucous Membranes Dry Additional comments: Gingival bleeding remarkably improved. - Neck Exam Neck exam: Full Rom - Respiratory Exam Respiratory Exam: Clear to PA & Lateral, UNREMARKABLE - Cardiovascular Exam Cardiovascular Exam: REGULAR RHYTHM, +S1, +S2 - GI/Abdominal Exam GI & Abdominal Exam: Normal Bowel Sounds, Soft, Unremarkable. absent: Tenderness - Rectal Exam Rectal Exam: Deferred - Extremities Exam Extremities exam: full ROM, normal inspection Additional comments: B/L lower legs: presence of pethechia and purpura, improving in extension, no covering foot til mid tibial area. - Neurological Exam Neurological exam: Alert, Oriented x3 Discharge Plan - Discharge Medications Prescriptions: Docusate Sodium/Sennosides A [Senokot S 50 MG-8.6 MG] 1 tab PO HS #30 tab Hydrocortisone 2.5% (Rectal) [Anusol-HC] 1 applic [place] BID #1 tube Tamsulosin [Flomax] 0.4 mg PO DAILY #30 cap - Follow Up Plan Condition: FAIR Disposition: HOME/ ROUTINE Additional Instructions: Patient to follow up with Dr. Pace on November 29 for further management of MDS. Patient to follow up with Dr. Brown in 1 week. Return to ED for new/worsening symptoms.
[2017-11-23 18:34] LABS: URINE BACTERIA RARE (<OCC); URINE BILIRUBIN NEGATIVE (NEGATIVE); URINE BLOOD MODERATE (NEGATIVE); URINE CLARITY CLEAR (Clear); URINE COLOR YELLOW (YELLOW); URINE GLUCOSE (UA) NEG (Normal); URINE LEUKOCYTE ESTERASE NEG Leu/uL (Negative); URINE PROTEIN 30 mg/dL (NEGATIVE); URINE UROBILINOGEN 0.2-1.0 mg/dL (0.2-1.0)
[2017-11-23] MEDS ORDERED: Docusate-Senna 50 mg-8.6 mg Tab PO SCH (22:00)
== END 2017-11-23 18:45 | disposition home or self-care (01) ==
LOC: MERGE 13:39 → H.ER 13:39 → H.ERHOLD 19:22 → H.MEDSURG1 21:43
PROVIDERS: ADMIT Family Medicine Geriatric Medicine; ATTEND Family Medicine Geriatric Medicine
DX: D46.9 Myelodysplastic syndrome, unspecified (principal); E86.0 Dehydration; H53.8 Other visual disturbances; D61.818 Other pancytopenia; I12.9 Hypertensive chronic kidney disease with stage 1 through stage 4 chronic kidney disease, or unspecified chronic kidney disease; E11.22 Type 2 diabetes mellitus with diabetic chronic kidney disease; K59.00 Constipation, unspecified; K64.8 Other hemorrhoids; N18.3 Chronic kidney disease, stage 3 (moderate); E78.00 Pure hypercholesterolemia, unspecified; N17.9 Acute kidney failure, unspecified; Z79.899 Other long term (current) drug therapy; Z87.442 Personal history of urinary calculi
CPT/HCPCS: 36415; 36430; 70450; 80053; 81003; 82948; 84484; 85007; 85025; 85027; 86850; 86900; 87086; 93005; 96360; 96361; 96372; 99285; G0328; G0378; J3420; J7030; P9053

== ENCOUNTER 2018-01-02 19:55 | Observation (INO) | payer OTHER ==
[2018-01-02 20:59] LABS: HEMOGLOBIN 6.9 g/dL (12.0-18.0); MEAN CELL VOLUME 86.7 fl (80.0-94.0); MEAN CORPUSCULAR HEMOGLOBIN 29.7 pg (27.0-31.0); MEAN CORPUSCULAR HGB CONC 34.3 g/dL (33.0-37.0); RBC 2.32 Mil/uL (4.40-5.90); RED CELL DISTRIBUTION WIDTH 15.6 % (11.5-14.5)
[2018-01-02 21:29] LABS: CALCIUM 8.8 mg/dL (8.4-10.2)
--- NOTE | 2018-01-02 21:39 | ED PDOC ---
HPI: General Adult Time Seen by Provider: 01/02/18 20:05 Chief Complaint (Nursing): Abnormal Labs Chief Complaint (Provider): Abnormal Labs History Per: Patient History/Exam Limitations: no limitations Onset/Duration Of Symptoms: Days (x 2) Current Symptoms Are (Timing): Still Present Additional Complaint(s): 77 year old male with history of MDS presents to the ED with generlized weakness since yesterday. Patient was referred to the ED for low hemoglobin levels. Yesterday, he felt weak and tired. Today he started to feel better. 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 PMD: Basia Costa Past Medical History Reviewed: Historical Data, Nursing Documentation, Vital Signs Vital Signs: Last Vital Signs Temp 98.7 F 01/03/18 02:06 Pulse 88 01/03/18 02:06 Resp 18 01/03/18 02:06 BP 167/74 H 01/03/18 02:06 Pulse Ox 98 01/03/18 01:18 - Medical History PMH: Anemia, Diabetes, HTN, Hypercholesterolemia, Hyperlipidemia, Kidney Stones , Chronic Kidney Disease Denies: HIV - Surgical History Surgical History: No Surg Hx - Family History Family History: States: Unknown Family Hx - Home Medications Home Medications: Ambulatory Orders Medication Instructions Recorded Ferrous Sulfate [Feosol] 325 mg PO TID 11/01/17 Cilostazol [Pletal] 100 mg PO DAILY 11/22/17 Collagenase [Santyl] 1 appl TOP DAILY 11/22/17 Docusate [Colace] 2 cap PO HS 11/22/17 Lidocaine 2% [Xylocaine 2%] 1 appl NE Q6 11/22/17 hydroCHLOROthiazide [Hydrodiuril] 25 mg PO DAILY 11/22/17 Tamsulosin [Flomax] 0.4 mg PO DAILY #30 cap 11/23/17 Gabapentin [Neurontin] 100 mg PO HS cap 12/19/17 Lactulose [Enulose] 20 gm PO DAILY udc 12/19/17 Mirtazapine [Remeron ODT] 30 mg PO HS odt 12/19/17 Morphine [Morphine Extended 15 mg PO Q12 tabsr 12/19/17 Release Tab] Vancomycin 750mg [Vancomycin 750 750 mg IV Q48H 20 Days #10 bag 06/26/18 mg in NS] Acetaminophen [Tylenol 325mg tab] 650 mg PO Q4 PRN 01/02/18 Acetaminophen [Tylenol] 650 mg PO Q4 PRN 01/02/18 Amino Acids/Protein Hydrolys 30 ml PO BID 01/02/18 [Provide Gold Regular Liquid] Epoetin Ariel [Procrit] 10,000 unit SC QWK 01/02/18 Lidocaine/Hydrocortisone AC 1 appl RC Q12 01/02/18 [Lidocaine-Hc 3-0.5% Cream] Morphine [Morphine Immediate 30 mg PO Q6 PRN 01/02/18 Release Tab] Multivitamin [Multivitamins] 1 cap PO DAILY 01/02/18 Ondansetron HCl [Zofran] 4 mg PO Q6 PRN 01/02/18 - Allergies Allergies/Adverse Reactions: Allergies Allergy/AdvReac Type Severity Reaction Status Date / Time No Known Allergies Allergy Verified 01/02/18 19:58 Review of Systems ROS Statement: Except As Marked, All Systems Reviewed And Found Negative Constitutional: Positive for: Weakness Musculoskeletal: Positive for: Foot Pain (chronic toe ulcerations) Physical Exam - Reviewed Nursing Documentation Reviewed: Yes Vital Signs Reviewed: Yes - Physical Exam Appears: Positive for: Non-toxic, No Acute Distress (chronically ill appearing ) Head Exam: Positive for: ATRAUMATIC, NORMAL INSPECTION, NORMOCEPHALIC Skin: Positive for: Warm, Dry, Pallor Eye Exam: Positive for: EOMI, Normal appearance, PERRL Neck: Positive for: Normal, Painless ROM, Supple Cardiovascular/Chest: Positive for: Regular Rate, Rhythm. Negative for: Murmur Respiratory: Positive for: Normal Breath Sounds. Negative for: Respiratory Distress Gastrointestinal/Abdominal: Positive for: Normal Exam, Soft. Negative for: Tenderness Male Genital Exam: Positive for: other (external non thrombosed hemorrhoid) Extremity: Positive for: Normal ROM (x 4), Other (ulceration of distal big toe on left foot ). Negative for: Deformity Neurologic/Psych: Positive for: Alert, Oriented. Negative for: Motor/Sensory Deficits - Laboratory Results Result Diagrams: 01/02/18 20:45 01/02/18 20:45 - ECG O2 Sat by Pulse Oximetry: 99 (RA) Pulse Ox Interpretation: Normal Medical Decision Making Medical Decision Makin:37 77 y/o male with history of MDS presenting with anemia --Likely will require blood transfusion --Well appearing at this time but chronically ill. --Normal vitals at this time. --Will be reevaluated after blood work. --Blood type and screen --EKG --BMP --CBC --CXR 2145 Patient has Hgb of 6.9. Platelets are 30 which is in patient's range (has been lower than 30 recently. Patient has been consented for transfusion. Will admit for symptomatic anemia. ---- Scribe Attestation: Documented by Araseli Wei, acting as a scribe for Wm Luz MD Provider Scribe Attestation: All medical record entries made by the Scribe were at my direction and personally dictated by me. I have reviewed the chart and agree that the record accurately reflects my personal performance of the history, physical exam, medical decision making, and the department course for this patient. I have also personally directed, reviewed, and agree with the discharge instructions and disposition. Disposition - Clinical Impression Clinical Impression: Anemia - Patient ED Disposition Is Patient to be Admitted: Yes - Disposition Disposition Time: 21:45 Condition: STABLE
[2018-01-02] MEDS ORDERED: Mirtazapine 30 MG ODT PO SCH (22:00)
--- NOTE | 2018-01-02 22:53 | CP.PCM.HP ---
History of Present Illness - History of Present Illness History of Present Illness: 77 year old Male with a PMHx of Myelodysplastic Syndrome, with secondary Pancytopenia, CKD, HTN, DM type 2, Chronic Right great toe ulcerations with osteomyeolitis, hemorrhoids who presents to ED complaining of feeling weak and tired since yesterday( more than his baseline). Patient states he was seen by Dr. Pace yesterday ( Hematology) for labs results, and to start MDS chemotherapy as well, but "because his H/H and platelets were low" he was told by Dr. Pace to go to ED for possible transfusion. No evidence of active bleeding at this time. Patient denies fevers, chills, nausea, vomiting, chest pain, SOB, blood in stools or other active bleeding. Patient was admitted at [facility] on 11/26/17 for rectal abscess, managed with IV abx, got a right brachial PICC line to continue with IV antibiotics after DC, transferred to [facility] rehab to complete treatment for right great toe necrosis with OM. PMD: [facility]:(Dr. Brown) Last visit 11/21/17 Hemo-Onc: Dr Pace NKDA Home meds:Cilostazol 100 mg PO Daily, Feosol 325 mg PO TID, HCTZ 25 mg PO daily , Lidocaine 2% cream, Docusate 100 mg PO daily, Docuisate/sennosides 1 tab HS, Anusol-HC, flomax 0.4 mg PO daily PMHx: diet-controlled DM2, HTN, Myelodysplastic Syndrome, Pancytopenia, CKD. PSHx: L foot bunion FHx: mother has bone cancer, other family members w/ DM2 SHx: denies smoking now and in the past, denies alcohol use, denies drug use Next of kin: Ottoniel Diaz (son) [phone] Code status: full code ED course VS: mild tachy PE: Chronic ill, pallor, alert, awake, and oriented x 3 CV: RRR, normal S1, S2 Resp: CTA B/L ext: no edema Labs: CBC, BMP reviewed Tx: transfusion of 2 units of PRBC Present on Admission - Present on Admission Any Indicators Present on Admission: No History of DVT/PE: No History of Uncontrolled Diabetes: No Urinary Catheter: No Decubitus Ulcer Present: No Review of Systems - Review of Systems All systems: reviewed and no additional remarkable complaints except (as per HPI ) Past Patient History - Infectious Disease Hx of Infectious Diseases: None - Past Medical History & Family History Past Medical History?: Yes - Past Social History Smoking Status: Never Smoked - CARDIAC Hx Hypercholesterolemia: Yes Hx Hypertension: Yes - PULMONARY Hx Respiratory Disorders: No - NEUROLOGICAL Hx Neurological Disorder: No - HEENT Hx HEENT Problems: No - RENAL Hx Chronic Kidney Disease: Yes Hx Kidney Stones: Yes - ENDOCRINE/METABOLIC Hx Diabetes Mellitus Type 2: Yes - HEMATOLOGICAL/ONCOLOGICAL Hx Anemia: Yes Hx Human Immunodeficiency Virus (HIV): No - INTEGUMENTARY Hx Dermatological Problems: No - MUSCULOSKELETAL/RHEUMATOLOGICAL Hx Musculoskeletal Disorders: No Hx Falls: Yes - GASTROINTESTINAL Hx Gastrointestinal Disorders: No - GENITOURINARY/GYNECOLOGICAL Hx Genitourinary Disorders: No - PSYCHIATRIC Hx Psychophysiologic Disorder: No Hx Substance Use: No - SURGICAL HISTORY Other/Comment: Bunion - ANESTHESIA Hx Anesthesia: Yes Hx Anesthesia Reactions: No Meds Allergies/Adverse Reactions: Allergies Allergy/AdvReac Type Severity Reaction Status Date / Time No Known Allergies Allergy Verified 01/02/18 19:58 Physical Exam - Constitutional Appears: Non-toxic, No Acute Distress - Head Exam Head Exam: ATRAUMATIC, NORMOCEPHALIC - Eye Exam Eye Exam: Normal appearance. absent: Conjunctival injection, Nystagmus - ENT Exam ENT Exam: Mucous Membranes Dry - Respiratory Exam Respiratory Exam: Clear to Auscultation Bilateral, NORMAL BREATHING PATTERN. absent: Decreased Breath Sounds, Rales, Rhonchi, Wheezes, Respiratory Distress, Stridor - Cardiovascular Exam Cardiovascular Exam: REGULAR RHYTHM, +S1, +S2 - GI/Abdominal Exam GI & Abdominal Exam: Normal Bowel Sounds, Soft. absent: Guarding, Rebound, Tenderness - Rectal Exam Rectal Exam: Hemorrhoids - Extremities Exam Extremities exam: Positive for: normal inspection. Negative for: calf tenderness, pedal edema - Back Exam Back exam: NORMAL INSPECTION. absent: CVA tenderness (L), CVA tenderness (R) - Neurological Exam Neurological exam: Alert, Oriented x3 - Skin Skin Exam: Dry, Intact, Pallor Results - Vital Signs Recent Vital Signs: Last Vital Signs Temp 98.7 F 01/02/18 19:58 Pulse 99 H 01/02/18 19:58 Resp 16 01/02/18 19:58 BP 126/62 01/02/18 19:58 Pulse Ox 99 01/02/18 21:45 - Labs Result Diagrams: 01/02/18 20:45 01/02/18 20:45 Labs: Laboratory Results - last 24 hr 01/02/18 01/02/18 01/02/18 20:45 20:45 20:45 WBC 2.5 L RBC 2.32 L Hgb 6.9 L Hct 20.1 L MCV 86.7 MCH 29.7 MCHC 34.3 RDW 15.6 H Plt Count 30 L* Sodium 139 Potassium 3.7 Chloride 104 Carbon Dioxide 22 Anion Gap 17 BUN 94 H Creatinine 3.1 H Est GFR ( Amer) 24 Est GFR (Non-Af Amer) 20 POC Glucose (mg/dL) Random Glucose 111 H Calcium 8.8 Blood Type O POSITIVE Antibody Screen Negative Crossmatch See Detail BBK History Checked Patient has bt 01/02/18 20:48 WBC RBC Hgb Hct MCV MCH MCHC RDW Plt Count Sodium Potassium Chloride Carbon Dioxide Anion Gap BUN Creatinine Est GFR ( Amer) Est GFR (Non-Af Amer) POC Glucose (mg/dL) 118 H Random Glucose Calcium Blood Type Antibody Screen Crossmatch BBK History Checked Assessment & Plan - Assessment and Plan (Free Text) Assessment: 77 year old Male with a PMHx of Myelodysplastic Syndrome, with secondary Pancytopenia, CKD, HTN, DM type 2, 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 Plan: Symptomatic Anemia -MedSurg unit -most likely 2/2 MDS -H/H: 6.9/20.1 -prior H/H done on 12/19/17 8.4/24.3 -no evidence of active bleeding at this time -2 units of PRBC ordered in ER -repeat CBC after transfusion -s/p multiple PRBCs/Platelets transfusions and Granix during his last inpatient stay. Myelodysplastic Syndrome -Pending Chemo until medically stable as per Hemo-Onc -Call Hemo-Onc in AM, Dr. Pace, for further recs to optimize patient for Chemo. As per Family has an appointment to start chemo on 01/09/18 Pancytopenia -most likley 2/2 MDS -platelets on admission 30 (stable when compared with previous levels in last admission) -WBC on admission 2.5 (stable) -Hgb on admission 6.9. Transfuse 2 units of PRBC -c/w home iron replacement -c/w stool softener, and lactulose for constipation -Call Hemo-Onc in AM, Dr. Pace, for further recs Right Brachial Vein PICC line -placed on 12/08/17 by IR at [facility] -no evidence of Hematoma on admission Right big toe necrosis -with questionable OM as per Foot MRI done on 12/05/17 -Seen by Vascular and Podiatry specialist in last admission who recommended no interventions due to his MDS and thrombocytopenia. -was getting wound care at [facility] on 12/19/17 with [facility] -resume Vancomycin 750 mg every other day until 01/07/18 -resume wound care by Podiatry -as per family last dose of vanco was possibly yesterday -s/p Cipro 200mg BID for 10 days ( last dose 12/27/17) HTN -controlled -c/w home med CKD -stage 4 -Worsening Renal function vs Acute on CKD -BUN/Cr on admission:94/3.1 -f/u BMP Diabetes Mellitus type 2 -as per records : Last HbA1c 6.6 on 09/04/17 -diet controlled -c/w diabetic diet External Hemorrhoids -Avoid constipation -no active bleeding or thrombosed -Anusol Prophylaxis -NO anticoagulant for DVT prophylaxis due to thrombocytopenia -platelets on admission 30 -SCDs -protonix PO for stress ulcer prophylaxis, due to low platelets - Date & Time Date: 01/02/18 Time: 22:55
[2018-01-02 23:08] LABS: WHITE BLOOD COUNT 2.5 K/uL (4.8-10.8)
[2018-01-03] MEDS: Hydrocortisone 2.5% (Rectal) CREAM PR SCH ×2 (01:00→08:13)
[2018-01-03] MEDS: Sodium Chloride 0.9% 500 ML IV SCH ×3 (01:35→14:53)
[2018-01-03 03:52] VITALS: O2SAT 99
[2018-01-03 08:56] LABS: CALCIUM 8.5 mg/dL (8.4-10.2)
[2018-01-03] MEDS ORDERED: LIDOCAINE RC SCH (09:00)
[2018-01-03] MEDS ORDERED: Santyl Collagenase OINTMENT TOP SCH (09:00)
[2018-01-03] MEDS ORDERED: PROTEIN HYDROLYS PO SCH (09:00)
[2018-01-03] MEDS ORDERED: HYDROCORTISONE RC SCH (09:00)
[2018-01-03] MEDS ORDERED: AMINO ACIDS PO SCH (09:00)
[2018-01-03] MEDS ORDERED: Pantoprazole 40 mg EC Tab PO SCH (09:00)
[2018-01-03] MEDS ORDERED: Multivitamin With Minerals Tab PO SCH (09:00)
[2018-01-03 09:05] VITALS: BP 160/57; PULSE 84; RESP 16; TEMP 98.5
--- NOTE | 2018-01-03 11:07 | CARD ---
APPROVED REPORT Date of service: 01/02/2018 EKG Measurement Heart [id number] <Conclusion> Normal sinus rhythm Normal ECG
--- NOTE | 2018-01-03 11:27 | RAD ---
Date of service: 01/02/2018 PROCEDURE: CHEST RADIOGRAPH, 1 VIEW HISTORY: weakness COMPARISON: Comparison chest dated 12/14/2017 FINDINGS: No change right-sided PICC line with tip in the region of the SVC LUNGS: Mild left lower lobe atelectasis and/or scarring change. Developing infiltrate could be excluded with followup radiographs. PLEURA: No pneumothorax or pleural fluid seen. CARDIOVASCULAR: Normal. OSSEOUS STRUCTURES: No significant abnormalities. VISUALIZED UPPER ABDOMEN: Normal. OTHER FINDINGS: None. IMPRESSION: In situ right-sided PICC line as above. Mild left lower lobe atelectasis and/or scarring change. Developing infiltrate could be excluded with followup radiographs.
--- NOTE | 2018-01-03 11:27 | CP.PCM.CON ---
Past Patient History - Infectious Disease Hx of Infectious Diseases: None - Past Medical History & Family History Past Medical History?: Yes - Past Social History Smoking Status: Never Smoked - CARDIAC Hx Hypercholesterolemia: Yes Hx Hypertension: Yes - PULMONARY Hx Respiratory Disorders: No - NEUROLOGICAL Hx Neurological Disorder: No - HEENT Hx HEENT Problems: No - RENAL Hx Chronic Kidney Disease: Yes Hx Kidney Stones: Yes - ENDOCRINE/METABOLIC Hx Diabetes Mellitus Type 2: Yes - HEMATOLOGICAL/ONCOLOGICAL Hx Anemia: Yes Hx Human Immunodeficiency Virus (HIV): No - INTEGUMENTARY Hx Dermatological Problems: No - MUSCULOSKELETAL/RHEUMATOLOGICAL Hx Musculoskeletal Disorders: No Hx Falls: Yes - GASTROINTESTINAL Hx Gastrointestinal Disorders: No - GENITOURINARY/GYNECOLOGICAL Hx Genitourinary Disorders: No - PSYCHIATRIC Hx Psychophysiologic Disorder: No Hx Substance Use: No - SURGICAL HISTORY Other/Comment: Bunion - ANESTHESIA Hx Anesthesia: Yes Hx Anesthesia Reactions: No Meds Allergies/Adverse Reactions: Allergies Allergy/AdvReac Type Severity Reaction Status Date / Time No Known Allergies Allergy Verified 01/02/18 19:58 - Medications Medications: Current Medications Acetaminophen (Tylenol 325mg Tab) 650 mg PO Q6 PRN PRN Reason: Pain, moderate (4-7) Collagenase (Santyl) 1 applic TOP DAILY [facility] Last Admin: 01/03/18 08:15 Dose: 1 applic Docusate Sodium (Colace) 200 mg PO HS [place] Ferrous Sulfate (Feosol) 325 mg PO TID [facility] Last Admin: 01/03/18 08:12 Dose: 325 mg Gabapentin (Neurontin) 100 mg PO HS [facility] Hydrochlorothiazide (Hydrodiuril) 25 mg PO DAILY [facility] Last Admin: 01/03/18 08:13 Dose: 25 mg Hydrocortisone (Anusol-Hc) 1 applic MT BID [facility] Last Admin: 01/03/18 08:13 Dose: Not Given Sodium Chloride (Sodium Chloride 0.9%) 500 mls @ 70 mls/hr IV .Q7H9M [facility] Last Admin: 01/03/18 09:29 Dose: 70 mls/hr Vancomycin HCl 750 mg/ Sodium (Chloride) 250 mls @ 166.667 mls/hr IVPB QOTHERDAY [place] PRN Reason: Protocol Stop: 01/07/18 11:00 Lactulose (Enulose) 20 gm PO DAILY [facility] Last Admin: 01/03/18 08:18 Dose: Not Given Mirtazapine (Remeron Odt) 30 mg PO HS [facility] Morphine Sulfate (Morphine) 2 mg IVP Q6 PRN PRN Reason: Pain, severe (8-10) Multivitamins/Minerals (Therapeutic-M Tab) 1 tab PO DAILY [facility] Last Admin: 01/03/18 08:13 Dose: 1 tab Ondansetron HCl (Zofran Odt) 4 mg PO Q8H PRN PRN Reason: Nausea/Vomiting Last Admin: 01/03/18 08:16 Dose: 4 mg Pantoprazole Sodium (Protonix Ec Tab) 40 mg PO DAILY [facility] Last Admin: 01/03/18 08:16 Dose: 40 mg Tamsulosin HCl (Flomax) 0.4 mg PO DAILY [facility] Last Admin: 01/03/18 08:12 Dose: 0.4 mg Results - Vital Signs Recent Vital Signs: Last Vital Signs Temp 98.5 F 01/03/18 09:00 Pulse 84 01/03/18 09:00 Resp 16 01/03/18 09:00 BP 160/57 H 01/03/18 09:00 Pulse Ox 99 01/03/18 03:52 - Labs Result Diagrams: 01/02/18 20:45 01/03/18 08:25 Labs: Laboratory Results - last 24 hr 01/02/18 01/02/18 01/02/18 20:45 20:45 20:45 WBC 2.5 L RBC 2.32 L Hgb 6.9 L Hct 20.1 L MCV 86.7 MCH 29.7 MCHC 34.3 RDW 15.6 H Plt Count 30 L* Sodium 139 Potassium 3.7 Chloride 104 Carbon Dioxide 22 Anion Gap 17 BUN 94 H Creatinine 3.1 H Est GFR ( Amer) 24 Est GFR (Non-Af Amer) 20 POC Glucose (mg/dL) Random Glucose 111 H Calcium 8.8 Blood Type O POSITIVE Antibody Screen Negative Crossmatch See Detail BBK History Checked Patient has bt 01/02/18 01/03/18 20:48 08:25 WBC RBC Hgb Hct MCV MCH MCHC RDW Plt Count Sodium 140 Potassium 3.3 L Chloride 104 Carbon Dioxide 23 Anion Gap 16 BUN 90 H Creatinine 3.0 H Est GFR ( Amer) 25 Est GFR (Non-Af Amer) 20 POC Glucose (mg/dL) 118 H Random Glucose 97 Calcium 8.5 Blood Type Antibody Screen Crossmatch BBK History Checked
[2018-01-03 12:26] LABS: BASO # 0.1 K/uL (0.0-0.2); EOS # 0.1 K/uL (0.0-0.7); EOS % 4.3 % (0.0-4.0); HEMOGLOBIN 9.1 g/dL (12.0-18.0); LYMPH # 0.8 K/uL (1.0-4.3); LYMPH % 34.4 % (20.0-40.0); MEAN CELL VOLUME 85.6 fl (80.0-94.0); MEAN CORPUSCULAR HEMOGLOBIN 29.8 pg (27.0-31.0); MEAN CORPUSCULAR HGB CONC 34.8 g/dL (33.0-37.0); MEAN PLATELET VOLUME 7.2 fl (7.2-11.7); MONO # 0.3 K/uL (0.0-0.8); MONO % 13.9 % (0.0-10.0); NEUT # 1.1 K/uL (1.8-7.0); NEUT % 44.4 % (50.0-75.0); NRBC % 0.2 % (0.0-0.0); RBC 3.04 Mil/uL (4.40-5.90); RED CELL DISTRIBUTION WIDTH 14.3 % (11.5-14.5); WHITE BLOOD COUNT 2.4 K/uL (4.8-10.8)
[2018-01-03] MEDS ORDERED: Morphine 30 mg Immediate Release Tab PO PRN (13:53)
[2018-01-03] MEDS ORDERED: EPOETIN ALFA 10,000 UNIT/ML ML SC SCH (14:00)
[2018-01-03] MEDS ORDERED: Patient's Own Med (Vancomycin 750mg [Vancomycin 750 Mg In Ns] 750 MG) IV SCH (14:00)
--- NOTE | 2018-01-03 14:07 | CP.PCM.DIS ---
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 Status: Chronic Hospital Course - Lab Results Lab Results: Most Recent Lab Values WBC 2.4 K/uL (4.8-10.8) L 01/03/18 12:16 RBC 3.04 Mil/uL (4.40-5.90) L 01/03/18 12:16 Hgb 9.1 g/dL (12.0-18.0) L D 01/03/18 12:16 Hct 26.0 % (35.0-51.0) L 01/03/18 12:16 MCV 85.6 fl (80.0-94.0) 01/03/18 12:16 MCH 29.8 pg (27.0-31.0) 01/03/18 12:16 MCHC 34.8 g/dL (33.0-37.0) 01/03/18 12:16 RDW 14.3 % (11.5-14.5) 01/03/18 12:16 Plt Count 29 K/uL (130-400) L* 01/03/18 12:16 MPV 7.2 fl (7.2-11.7) 01/03/18 12:16 Neut % (Auto) 44.4 % (50.0-75.0) L 01/03/18 12:16 Lymph % (Auto) 34.4 % (20.0-40.0) 01/03/18 12:16 [place] % (Auto) 13.9 % (0.0-10.0) H 01/03/18 12:16 Eos % (Auto) 4.3 % (0.0-4.0) H 01/03/18 12:16 Baso % (Auto) 3.0 % (0.0-2.0) H 01/03/18 12:16 Neut # (Auto) 1.1 K/uL (1.8-7.0) L 01/03/18 12:16 Lymph # (Auto) 0.8 K/uL (1.0-4.3) L 01/03/18 12:16 [place] # (Auto) 0.3 K/uL (0.0-0.8) 01/03/18 12:16 Eos # (Auto) 0.1 K/uL (0.0-0.7) 01/03/18 12:16 Baso # (Auto) 0.1 K/uL (0.0-0.2) 01/03/18 12:16 Sodium 140 mmol/l (132-148) 01/03/18 08:25 Potassium 3.3 MMOL/L (3.6-5.0) L 01/03/18 08:25 Chloride 104 mmol/L (98-107) 01/03/18 08:25 Carbon Dioxide 23 mmol/L (22-30) 01/03/18 08:25 Anion Gap 16 (10-20) 01/03/18 08:25 BUN 90 mg/dl (9-20) H 01/03/18 08:25 Creatinine 3.0 mg/dl (0.8-1.5) H 01/03/18 08:25 Est GFR ( Amer) 25 01/03/18 08:25 Est GFR (Non-Af Amer) 20 01/03/18 08:25 POC Glucose (mg/dL) 118 mg/dL (65-110) H 01/02/18 20:48 Random Glucose 97 mg/dL (75-110) 01/03/18 08:25 Calcium 8.5 mg/dL (8.4-10.2) 01/03/18 08:25 Blood Type O POSITIVE 01/02/18 20:45 Antibody Screen Negative 01/02/18 20:45 Crossmatch See Detail 01/02/18 20:45 BBK History Checked Patient has bt 01/02/18 20:45 - Hospital Course Hospital Course: 77 yo male with PMHx of 77 year old Male with a PMHx of Myelodysplastic Syndrome , with secondary Pancytopenia, CKD, HTN, DM type 2, 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 Hospital course: the patient received 2 units of leukocyte reduced PRBC and tolerated well the transfusions, patient seen by Dr Pace today and cleared to be D/c home and continue outpatient f/u. Patient has dx of chronic right great toe ulcer with osteomyelitis, currently receiving tx: PICC line on RUE for IV antbx Vancomycin 750 QOD to be continued until 01/07/2018 and f/u on Mondays with Dr Cote at [facility]. Labs 01/03/2018 after 2 units of PRBC H/H: 9.07/21 Discharge Exam - Head Exam Head Exam: ATRAUMATIC, NORMAL INSPECTION, NORMOCEPHALIC - Eye Exam Eye Exam: PERRL - ENT Exam ENT Exam: Mucous Membranes Moist - Respiratory Exam Respiratory Exam: Clear to PA & Lateral. absent: Rales, Rhonchi, Wheezes - Cardiovascular Exam Cardiovascular Exam: REGULAR RHYTHM, +S1, +S2 - GI/Abdominal Exam GI & Abdominal Exam: Normal Bowel Sounds - Extremities Exam Additional comments: unstageable ulcer on tip of right great toe noted - Neurological Exam Neurological exam: Alert - Psychiatric Exam Psychiatric exam: Normal Affect, Normal Mood - Skin Skin Exam: Normal Color, Warm Discharge Plan - Follow Up Plan Condition: STABLE Disposition: HOME/ ROUTINE Instructions: Anemia of Chronic Disease, Blood Transfusion Additional Instructions: follow up with Dr. Pace in 2-3 days follow up with primary medical doctor within 1 week any worsening of symptoms, bleeding, palpitations, return to ER Referrals: [facility] [Outside] Ty Pace MD [Family Provider] - Sourav Sandhu DPM [Doctor Podiatric Medicine] -
[2018-01-03] MEDS ORDERED: Lidocaine 2% GEL TOP SCH (16:00)
--- NOTE | 2018-01-03 20:36 | CP.PCM.CON ---
History of Present Illness - History of Present Illness History of Present Illness: Podiatry Progress Note for Attending Dr. Sandhu 77 y/o male seen and evaluated at bedside for stable, necrotic right distal hallux and left heel deep tissue injury. Patient is AAO x 3 and NAD and resting comfortably in bed. States that his pain is the same at necrotic tip and left heel. Patient denies dressings to his right foot. Patient admitted to the hospital for low platelet count and podiatry was consulted for wounds. Denies any new pedal complaints. Denies any recent N/V/F/C/CP/SOB/D. Review of Systems - Review of Systems All systems: reviewed and no additional remarkable complaints except Review of Systems: As per HPI Past Patient History - Infectious Disease Hx of Infectious Diseases: None - Past Medical History & Family History Past Medical History?: Yes - Past Social History Smoking Status: Never Smoked - CARDIAC Hx Hypercholesterolemia: Yes Hx Hypertension: Yes - PULMONARY Hx Respiratory Disorders: No - NEUROLOGICAL Hx Neurological Disorder: No - HEENT Hx HEENT Problems: No - RENAL Hx Chronic Kidney Disease: Yes Hx Kidney Stones: Yes - ENDOCRINE/METABOLIC Hx Diabetes Mellitus Type 2: Yes - HEMATOLOGICAL/ONCOLOGICAL Hx Anemia: Yes Hx Human Immunodeficiency Virus (HIV): No - INTEGUMENTARY Hx Dermatological Problems: No - MUSCULOSKELETAL/RHEUMATOLOGICAL Hx Musculoskeletal Disorders: No Hx Falls: Yes - GASTROINTESTINAL Hx Gastrointestinal Disorders: No - GENITOURINARY/GYNECOLOGICAL Hx Genitourinary Disorders: No - PSYCHIATRIC Hx Psychophysiologic Disorder: No Hx Substance Use: No - SURGICAL HISTORY Other/Comment: Bunion - ANESTHESIA Hx Anesthesia: Yes Hx Anesthesia Reactions: No Meds Allergies/Adverse Reactions: Allergies Allergy/AdvReac Type Severity Reaction Status Date / Time No Known Allergies Allergy Verified 01/02/18 19:58 Physical Exam - Constitutional Appears: Well, Non-toxic, No Acute Distress - Head Exam Head Exam: ATRAUMATIC, NORMOCEPHALIC - Extremities Exam Additional comments: B/L LE exam: VASC: DP and PT pulses 1/4 bilaterally. Skin temperature warm to cool from proximal to distal, cold distal tip Right hallux. CFT < 3 seconds to all digits except hallux. Pedal hair growth noted. No edema noted B/L NEURO: Protective sensation grossly intact DERM: Dark, necrotic soft tissue eschar at the tip of right hallux consistent with dry gangrene, no progression of necrotic area, appears clinically stable. Dark discoloration noted to the plantar-proximal aspect of left heel consistent with deep tissue injury. Dark discoloration noted at the R lateral malleolous. No open lesions, no drainage, no purulence, no fluctuance, no clinical signs of active bacterial infection ORTHO: No Pain on palpation to right distal hallux, Moderate pain with palpation to the left heel - Neurological Exam Neurological exam: Alert, Oriented x3 - Psychiatric Exam Psychiatric exam: Normal Affect, Normal Mood Results - Vital Signs Recent Vital Signs: Last Vital Signs Temp 98.5 F 01/03/18 09:00 Pulse 84 01/03/18 09:00 Resp 16 01/03/18 09:00 BP 160/57 H 01/03/18 09:00 Pulse Ox 99 01/03/18 03:52 - Labs Result Diagrams: 01/03/18 12:16 01/03/18 08:25 Labs: Laboratory Results - last 24 hr 01/02/18 01/02/18 01/02/18 20:45 20:45 20:45 WBC 2.5 L RBC 2.32 L Hgb 6.9 L Hct 20.1 L MCV 86.7 MCH 29.7 MCHC 34.3 RDW 15.6 H Plt Count 30 L* MPV Neut % (Auto) Lymph % (Auto) [place] % (Auto) Eos % (Auto) Baso % (Auto) Neut # (Auto) Lymph # (Auto) [place] # (Auto) Eos # (Auto) Baso # (Auto) Sodium 139 Potassium 3.7 Chloride 104 Carbon Dioxide 22 Anion Gap 17 BUN 94 H Creatinine 3.1 H Est GFR ( Amer) 24 Est GFR (Non-Af Amer) 20 POC Glucose (mg/dL) Random Glucose 111 H Calcium 8.8 Blood Type O POSITIVE Antibody Screen Negative Crossmatch See Detail BBK History Checked Patient has bt 01/02/18 01/03/18 01/03/18 20:48 08:25 12:16 WBC 2.4 L RBC 3.04 L Hgb 9.1 L D Hct 26.0 L MCV 85.6 MCH 29.8 MCHC 34.8 RDW 14.3 Plt Count 29 L* MPV 7.2 Neut % (Auto) 44.4 L Lymph % (Auto) 34.4 [place] % (Auto) 13.9 H Eos % (Auto) 4.3 H Baso % (Auto) 3.0 H Neut # (Auto) 1.1 L Lymph # (Auto) 0.8 L [place] # (Auto) 0.3 Eos # (Auto) 0.1 Baso # (Auto) 0.1 Sodium 140 Potassium 3.3 L Chloride 104 Carbon Dioxide 23 Anion Gap 16 BUN 90 H Creatinine 3.0 H Est GFR ( Amer) 25 Est GFR (Non-Af Amer) 20 POC Glucose (mg/dL) 118 H Random Glucose 97 Calcium 8.5 Blood Type Antibody Screen Crossmatch BBK History Checked Assessment & Plan - Assessment and Plan (Free Text) Assessment: 77 y/o male seen at bedside for right hallux gangrene of distal tip and deep tissue injury of left heel Plan: Patient seen and evaluated Plan discussed with attending Dr. Sandhu Chart, labs, and vitals reviewed; Afebrile, WBC 2.4 Patient was seen as a consult Patient denied dressings due to pain Patient was discharged prior to any further podiatric intervention Thank you for the podiatry consult - Date & Time Date: 01/03/18 Time: 20:39
[2018-01-03] MEDS ORDERED: Morphine 15 mg SR Tab PO SCH (21:00)
[2018-01-04] MEDS ORDERED: Cilostazol 100 mg Tab UD PO SCH (09:00)
== END 2018-01-03 16:00 ==
LOC: H.ER 19:55 → H.ERHOLD 21:47 → H.MEDSURG1 23:46
PROVIDERS: ADMIT Family Medicine Geriatric Medicine; ATTEND Family Medicine Geriatric Medicine
DX: D61.818 Other pancytopenia (principal); D46.9 Myelodysplastic syndrome, unspecified; I12.9 Hypertensive chronic kidney disease with stage 1 through stage 4 chronic kidney disease, or unspecified chronic kidney disease; N18.4 Chronic kidney disease, stage 4 (severe); E11.22 Type 2 diabetes mellitus with diabetic chronic kidney disease; E11.52 Type 2 diabetes mellitus with diabetic peripheral angiopathy with gangrene; E11.621 Type 2 diabetes mellitus with foot ulcer; L97.514 Non-pressure chronic ulcer of other part of right foot with necrosis of bone; E11.69 Type 2 diabetes mellitus with other specified complication; M86.8X7 Other osteomyelitis, ankle and foot; E78.00 Pure hypercholesterolemia, unspecified; E78.5 Hyperlipidemia, unspecified; K64.4 Residual hemorrhoidal skin tags; Z87.442 Personal history of urinary calculi; Z80.8 Family history of malignant neoplasm of other organs or systems; Z83.3 Family history of diabetes mellitus
CPT/HCPCS: 36415; 36430; 71045; 80048; 82948; 85025; 85027; 86850; 86900; 86920; 93005; 99283; G0378; J7040; P9051

== ENCOUNTER 2018-01-11 11:25 | Inpatient (IN) | payer MEDICAID, OTHER ==
[2018-01-11] MEDS ORDERED: Sodium Chloride 0.9% 1,000 ML IV STA (12:16)
[2018-01-11 12:43] LABS: BASO % 0.1 % (0.0-2.0); EOS % 0.1 % (0.0-4.0); HEMOGLOBIN 12.6 g/dL (12.0-18.0); LYMPH # 0.3 K/uL (1.0-4.3); LYMPH % 11.7 % (20.0-40.0); MEAN CELL VOLUME 88.6 fl (80.0-94.0); MEAN CORPUSCULAR HGB CONC 33.8 g/dL (33.0-37.0); MEAN PLATELET VOLUME 8.9 fl (7.2-11.7); MONO % 1.5 % (0.0-10.0); NEUT # 2.2 K/uL (1.8-7.0); NEUT % 86.6 % (50.0-75.0); NRBC % 0.1 % (0.0-0.0); RBC 4.2 Mil/uL (4.40-5.90); RED CELL DISTRIBUTION WIDTH 15.6 % (11.5-14.5); WHITE BLOOD COUNT 2.5 K/uL (4.8-10.8)
[2018-01-11 12:55] LABS: SQUAMOUS EPITHIAL 2 /hpf (0-5); URINE BACTERIA RARE (<OCC); URINE BILIRUBIN NEGATIVE (NEGATIVE); URINE BLOOD LARGE (NEGATIVE); URINE CLARITY CLOUDY (Clear); URINE COLOR YELLOW (YELLOW); URINE GLUCOSE (UA) 50 mg/dL (Normal); URINE LEUKOCYTE ESTERASE TRACE Leu/uL (Negative); URINE PROTEIN 100 mg/dL (NEGATIVE); URINE UROBILINOGEN 0.2-1.0 mg/dL (0.2-1.0)
--- NOTE | 2018-01-11 12:58 | ED PDOC ---
HPI: Abdomen Time Seen by Provider: 01/11/18 11:25 Chief Complaint (Nursing): Abdominal Pain Chief Complaint (Provider): Abdominal Pain History Per: Patient, Family (son) History/Exam Limitations: no limitations Onset/Duration Of Symptoms: Hrs Current Symptoms Are (Timing): Still Present Associated Symptoms: Nausea, Vomiting Additional Complaint(s): 77 y/o male with a PMHx of myelodysplastic syndrome, thrombocytopenia, chronic kidney disease, HT, DM, Hyperchloesterolemia, bone cancer and depression presents to the ED from [facility] complaining of nausea and vomiting status post first chemotherapy session, onset 3 days ago. Patient was sent to the ED by Dr. rodriguez his hemtologist for further evaluation of nausea and vomiting darkish material. no rectal bleeding. no fever. history partially obtained from pt son at bedside. PMD: Basia Costa Past Medical History Reviewed: Historical Data, Nursing Documentation, Vital Signs Vital Signs: Last Vital Signs Temp 98.6 F 01/15/18 08:00 Pulse 107 H 01/15/18 08:00 Resp 14 01/15/18 08:00 BP 139/60 01/15/18 08:00 Pulse Ox 90 L 01/15/18 08:00 - Medical History PMH: Anemia, Depression, Diabetes, HTN, Hypercholesterolemia, Hyperlipidemia, Kidney Stones, Chronic Kidney Disease Denies: HIV - Surgical History Surgical History: No Surg Hx - Family History Family History: States: Unknown Family Hx - Living Arrangements Living Arrangements: [facility] - Social History Current smoker - smoking cessation education provided: No Alcohol: None Drugs: Denies - Home Medications Home Medications: Ambulatory Orders Medication Instructions Recorded Ferrous Sulfate [Feosol] 325 mg PO TID 11/01/17 Cilostazol [Pletal] 100 mg PO DAILY 11/22/17 Collagenase [Santyl] 1 appl TOP DAILY 11/22/17 Docusate [Colace] 200 mg PO HS 11/22/17 Lidocaine 2% [Xylocaine 2%] 1 appl CO Q6 PRN 11/22/17 hydroCHLOROthiazide [Hydrodiuril] 25 mg PO DAILY 11/22/17 Tamsulosin [Flomax] 0.4 mg PO DAILY #30 cap 11/23/17 Gabapentin [Neurontin] 100 mg PO HS cap 12/19/17 Lactulose [Enulose] 20 gm PO DAILY [facility] 12/19/17 Morphine [Morphine Extended 15 mg PO Q12 tabsr 12/19/17 Release Tab] Morphine [Morphine Immediate 30 mg PO Q6 PRN 01/02/18 Release Tab] Multivitamin [Multivitamins] 1 cap PO DAILY 01/02/18 Ondansetron HCl [Zofran] 4 mg PO Q6 PRN 01/02/18 Acetaminophen [Tylenol 325mg tab] 650 mg PO Q4 PRN 01/11/18 Acetaminophen [Tylenol 325mg tab] 650 mg PO Q4 PRN 01/11/18 Menthol/Zinc Oxide [Calmoseptine 1 appl TOP QSHIFT 01/11/18 Ointment] Mirtazapine [Remeron] 30 mg PO HS 01/11/18 Vancomycin HCl [Firvanq] 5 ml PO Q6 01/11/18 - Allergies Allergies/Adverse Reactions: Allergies Allergy/AdvReac Type Severity Reaction Status Date / Time No Known Allergies Allergy Verified 01/11/18 11:58 Review of Systems ROS Statement: Except As Marked, All Systems Reviewed And Found Negative Gastrointestinal: Positive for: Nausea, Vomiting Physical Exam - Reviewed Nursing Documentation Reviewed: Yes Vital Signs Reviewed: Yes - Physical Exam Appears: Positive for: No Acute Distress. Negative for: Well (ill appearing) Head Exam: Positive for: ATRAUMATIC, NORMOCEPHALIC Skin: Positive for: Warm, Dry, Pallor Eye Exam: Positive for: Normal appearance ENT: Positive for: Normal ENT Inspection Neck: Positive for: Normal, Painless ROM Cardiovascular/Chest: Positive for: Regular Rate, Rhythm Respiratory: Positive for: Normal Breath Sounds Gastrointestinal/Abdominal: Positive for: Normal Exam, Soft, Tenderness ( diffuse abdominal tenderness) Back: Positive for: Normal Inspection Extremity: Positive for: Normal ROM, Other (chronic left heel blister and right great toe gangrenous ulcer) Neurologic/Psych: Positive for: Alert, Oriented - Laboratory Results Result Diagrams: 01/15/18 04:50 01/15/18 04:50 - ECG ECG Rhythm: Positive for: Sinus Rhythm Rate: 93 - Critical Care Total Time (In Min): 30 Medical Decision Making Medical Decision Making: Time: 1230 Plan: nausea vomiting, rule out infection, electrolyte abnormality, small bowel obstruction -- CT Abd/Pelvis W/o PO or IV Contrast -- CMP -- CBC with differentials -- Sodium Chloride IV 999 mls/hr -- Zofran Inj 4 mg IV -- Urine C&S -- Urinalysis -- Labs show platelet level is 27,000 which is consistent with prior. Time: 1318 Plan: -- Zofran Inj 4 mg IV -- Zofran Inj 4 mg IV -- Patient continued to vomit, another dose of zofran was administered for symptom relief. -- Due to high glucose level resulting in the 400s, Provider will rule out DKA. Time: 1344 -- Temperature taken rectally resulted in 99.5. Blanca huggers administered and sepsis labs ordered. -- VBG Shock Panel -- EKG -- PTT -- Prothrombin Time -- CXR Portable -- Insulin 4 units SC -- Blood Culture -- Ship Pilot -- Urinalysis Time: 1402 CXR RESULTS FINDINGS: LUNGS: No active pulmonary disease. PLEURA: No significant pleural effusion identified, no pneumothorax apparent. CARDIOVASCULAR: Normal. OSSEOUS STRUCTURES: No significant abnormalities. VISUALIZED UPPER ABDOMEN: Normal. OTHER FINDINGS: None. IMPRESSION: No active disease. Time: 1433 Plan: -- Dextrose 50% Inj (See Hypoglycemia Protocol) -- Glucagen Diagnostic Kit (See Hypoglycemia Protool) -- Glutose 15 (See Hypoglycemia rotocol -- Sodium Chloride 0.9% 100 ml Insulin Human Regular 100 units IV 7 mls/hr -- Call ID Consult PRN -- Glucose, Blood POC -- Hypoglycemia Oral Treatment -- Notify M.D. Protocol -- Blood work results show: -- pH = 7.11 -- Lactate = 2.9 -- Potassium = 6.5 (will hold off treating given the insulin will lower the K.) -- Anion Gap = 29 -- Based on blood work, patient is in DKA. pt is acidotic with bicarb of 10. however ketones in urine are negatve. Insulin Drip will be provided. Time: 143 -- Case discussed with Dr. rodriguez who will see the patient on consult and states patient was seen in the past d by Dr. Bright for osteo of foot but cant be operated on because of low platelets. Time: 143 -- Infectious Disease Consult communicated with Dr. Kamlesh Bright for osteo consulation. Time: 1505 -- Dr. Rojas is aware of patient and agrees with treatment plan. Time: 151 -- Family Practice resident accepted patient for admission. Time: 1620 -- Case discussed with [employer], Dr. Van who accepted the patient into the ICU. 16:10 Abdomen/Pelvis CT FINDINGS: LOWER THORAX: Bilateral lower lobe infiltrates, right greater than left. LIVER: Normal size, contour and attenuation. Multiple punctate calcifications consistent with old calcified granulomas. No mass. No biliary dilatation. GALLBLADDER AND BILE DUCTS: Unremarkable. PANCREAS: Unremarkable. No gross lesion or ductal dilatation. SPLEEN: Unremarkable. ADRENALS: Unremarkable. No mass. KIDNEYS AND URETERS: Numerous right renal cortical cysts unchanged from prior examination. No definite solid mass identified. Coarse and curvilinear thin calcifications are again evident. The left kidney is unremarkable in appearance. There is no hydronephrosis. VASCULATURE: Unremarkable. No aortic aneurysm. BOWEL: There is willard colonic mural thickening consistent with diffuse colitis, nonspecific. There is no bowel obstruction. The stomach is distended and contains fluid and gas. APPENDIX: Not definitely identified. PERITONEUM: Mild ascites. No pneumoperitoneum. LYMPH NODES: Unremarkable. No enlarged lymph nodes. BLADDER: Suboptimally distended. Diffusely thickened wall may indicate cystitis. Please correlate with urinalysis. Henriquez catheter noted. REPRODUCTIVE: Normal prostate. BONES: No acute fracture. OTHER FINDINGS: None. IMPRESSION: Willard colitis. Possible cystitis. Mild ascites, nonspecific. Bilateral lower lobe pulmonary infiltrate suspicious for pneumonia. Additional findings as above. CT report shows bilateral lower lobe pneumonia. pt to get iv abx. blood and urine cultures sent earlier. pt and pts son aware of plan and all results. Scribe Attestation: Documented by Asia Evans acting as a scribe for Dr. Ang Block MD. Provider Scribe Attestation: All medical record entries made by the Scribe were at my direction and personally dictated by me. I have reviewed the chart and agree that the record accurately reflects my personal performance of the history, physical exam, medical decision making, and the department course for this patient. I have also personally directed, reviewed, and agree with the discharge instructions and disposition. Disposition - Clinical Impression Clinical Impression: Chronic kidney disease (CKD), stage III (moderate), Chronic wound of extremity , Pneumonia, DKA (diabetic ketoacidoses) - Patient ED Disposition Is Patient to be Admitted: Yes Counseled Patient/Family Regarding: Studies Performed, Diagnosis - Disposition Disposition Time: 14:00 Condition: STABLE
[2018-01-11] MEDS ORDERED: Insulin Regular 100 units/ml SC STA (13:19)
[2018-01-11 13:20] LABS: CALCIUM 6.9 mg/dL (8.4-10.2)
[2018-01-11] MEDS ORDERED: Insulin Regular 100 units/ml ONE (13:29)
[2018-01-11 13:58] LABS: INR 1.1 (0.9-1.2); PARTIAL THROMBOPLASTIN TIME 33.6 Seconds (25.6-37.1); PROTHROMBIN TIME 12.5 Seconds (9.8-13.1)
--- NOTE | 2018-01-11 14:05 | RAD ---
Date of service: 01/11/2018 HISTORY: Sepsis Patient COMPARISON: 01/02/2018 FINDINGS: LUNGS: No active pulmonary disease. PLEURA: No significant pleural effusion identified, no pneumothorax apparent. CARDIOVASCULAR: Normal. OSSEOUS STRUCTURES: No significant abnormalities. VISUALIZED UPPER ABDOMEN: Normal. OTHER FINDINGS: None. IMPRESSION: No active disease.
[2018-01-11 14:29] LABS: VENOUS BLOOD GAS BASE EXCESS -16.2 mmol/L (0.0-2.0); VENOUS BLOOD GAS PCO2 40 mmHg (40-60); VENOUS BLOOD GAS PO2 15 mm/Hg (30-55); VENOUS BLOOD PH 7.11 (7.32-7.43)
[2018-01-11] MEDS ORDERED: Dextrose 50% SYRINGE Inj (50 ml) IV PRN (14:32)
[2018-01-11] MEDS ORDERED: Glucagon Recombinant 1 mg Inj IM PRN (14:32)
--- NOTE | 2018-01-11 14:57 | CARD ---
APPROVED REPORT Date of service: 01/11/2018 EKG Measurement Heart [id number] <Conclusion> Normal sinus rhythm Normal ECG
[2018-01-11] MEDS ORDERED: Piperacillin/Tazobact 4.5 GM in Sodium Chloride 0.9% 100 ML IVPB ONE (15:30)
--- NOTE | 2018-01-11 15:37 | CP.PCM.CON ---
History of Present Illness - History of Present Illness History of Present Illness: Infectious Disease Consultation Note- asked to see this patient at the request of and family practice team for right great toe OM /ulceration HPI- Patient known to me from his last admission here last month. Patient is a 77 year old male with PMH of DM II, Myelodysplastic disease, pancytopenia , extensive PVD, who was here last month for right great toe gangrenous ulcer and left heel dry ulcer. during last admission pt. had MRI which was read as most likely OM and he had HIgh ESR which also corroborate that. He was being f/u closely by podiatry adn vascular and was ascertained that he has very poor peripheral vascular supply and hence poor surgical candidate for toe amputation or debridement . He completed 13 days of IV zosyn and was getting vanco dosed jaimee other day secondary to his poor renal function and he had completed 9 doses while inpatient and was supposed to receive 10 more doses of Iv vanco jaimee other day at [facility] via picc line that was placed on his right arm. and was also advised to get cipro 200 mg BID for 10 days. apparently pt. had his first chemo session the other day for HIS MDS and as per his son who is at his bedside he started to feel weak and vomited for almost the entire next day and he was transferred here for this nausea and vomiting and in ED he is found to be in DKA with very high glucose and lactate level . currently pt. is awake and alert but he is weak and tired. He coughed up brownish thick phlegm . denies any fever or chills. Review of Systems - Review of Systems Review of Systems: ROS- denies any fever or chills, denies any PANIAGUA, denies any cough but had thock brown phlegm spitted out just now, denies any sob, denies any chets pain, + nausea and vomiting, denies any abd. pain, denies any dysurea, denies any diarrhea continues to have right great toe black necrotic ulcer and left heel dry ulcer Past Patient History - Infectious Disease Hx of Infectious Diseases: None - Past Medical History & Family History Past Medical History?: Yes - Past Social History Smoking Status: Never Smoked Alcohol: None Drugs: Denies Home Situation {Lives}: Skilled Nursing - CARDIAC Hx Hypercholesterolemia: Yes Hx Hypertension: Yes - PULMONARY Hx Respiratory Disorders: No - NEUROLOGICAL Hx Neurological Disorder: No - HEENT Hx HEENT Problems: No - RENAL Hx Chronic Kidney Disease: Yes Hx Kidney Stones: Yes - ENDOCRINE/METABOLIC Hx Diabetes Mellitus Type 2: Yes - HEMATOLOGICAL/ONCOLOGICAL Hx Anemia: Yes - INTEGUMENTARY Hx Dermatological Problems: No - MUSCULOSKELETAL/RHEUMATOLOGICAL Hx Musculoskeletal Disorders: Yes Hx Falls: Yes Other/Comment: BONE CA (PER SENIOR CARE REPORT) - GASTROINTESTINAL Hx Gastrointestinal Disorders: No - GENITOURINARY/GYNECOLOGICAL Hx Genitourinary Disorders: No - PSYCHIATRIC Hx Depression: Yes - SURGICAL HISTORY Other/Comment: Bunion - ANESTHESIA Hx Anesthesia: Yes Hx Anesthesia Reactions: No Meds Allergies/Adverse Reactions: Allergies Allergy/AdvReac Type Severity Reaction Status Date / Time No Known Allergies Allergy Verified 01/11/18 11:58 - Medications Medications: Current Medications Dextrose (Dextrose 50% Inj) 0 ml IV STAT PRN; Protocol PRN Reason: Hypoglycemia Protocol Dextrose (Glutose 15) 0 gm PO ONCE PRN; Protocol PRN Reason: Hypoglycemia Protocol Glucagon (Glucagen Diagnostic Kit) 0 mg IM STAT PRN; Protocol PRN Reason: Hypoglycemia Protocol Insulin Human Regular 100 (units/ Sodium Chloride) 101 mls @ 7.07 mls/hr IV .[id number] CAMILLE; 7 UNIT/HR PRN Reason: Protocol Piperacillin Sod/Tazobactam (Sod 4.5 gm/ Sodium Chloride) 100 mls @ 100 mls/hr IVPB ONCE ONE PRN Reason: Protocol Stop: 01/11/18 16:29 Physical Exam - Constitutional Appears: Cachectic, Chronically Ill - Head Exam Head Exam: ATRAUMATIC - Eye Exam Eye Exam: EOMI, PERRL - ENT Exam ENT Exam: Normal Oropharynx - Neck Exam Neck exam: Positive for: Full Rom - Respiratory Exam Respiratory Exam: Clear to Auscultation Bilateral, NORMAL BREATHING PATTERN - Cardiovascular Exam Cardiovascular Exam: RRR, +S1, +S2 - GI/Abdominal Exam GI & Abdominal Exam: Normal Bowel Sounds, Soft Additional comments: NT, ND - Extremities Exam Additional comments: right distal hallux with necrotic ulcer , no malodor. no surrounding erythema left heel with dry ulcer dark discoloration, no skin breakage - Neurological Exam Neurological exam: Alert, Oriented x3 Results - Vital Signs Recent Vital Signs: Last Vital Signs Temp 95.7 F L 01/11/18 13:23 Pulse 93 H 01/11/18 15:13 Resp 17 01/11/18 13:23 BP 127/75 01/11/18 13:23 Pulse Ox 97 01/11/18 13:23 - Labs Result Diagrams: 01/11/18 12:30 01/11/18 12:30 Labs: Laboratory Results - last 24 hr 01/11/18 01/11/18 01/11/18 12:30 12:30 12:30 WBC 2.5 L RBC 4.20 L Hgb 12.6 D Hct 37.2 MCV 88.6 D MCH 30.0 MCHC 33.8 RDW 15.6 H Plt Count 27 L* MPV 8.9 Neut % (Auto) 86.6 H Lymph % (Auto) 11.7 L [place] % (Auto) 1.5 Eos % (Auto) 0.1 Baso % (Auto) 0.1 Neut # (Auto) 2.2 Lymph # (Auto) 0.3 L [place] # (Auto) 0.0 Eos # (Auto) 0.0 Baso # (Auto) 0.0 PT INR APTT pO2 VBG pH VBG pCO2 VBG HCO3 VBG Total CO2 VBG O2 Sat (Calc) VBG Base Excess VBG Potassium Glucose Lactate FiO2 Crit Value Called To Crit Value Called By Crit Value Read Back Blood Gas Notified Time Sodium 131 L Potassium 6.8 H* D Chloride 99 Carbon Dioxide 10 L* D Anion Gap 29 H BUN 203 H* D Creatinine 5.5 H Est GFR ( Amer) 12 Est GFR (Non-Af Amer) 10 Random Glucose 463 H* D Calcium 6.9 L Total Bilirubin 0.5 AST 16 L ALT 31 Alkaline Phosphatase 73 Total Protein 6.2 L Albumin 3.0 L Globulin 3.1 Albumin/Globulin Ratio 1.0 Venous Blood Potassium Urine Color Yellow Urine Clarity Cloudy Urine pH 5.0 Ur Specific [place] 1.018 Urine Protein 100 Urine Glucose (UA) 50 Urine Ketones Negative Urine Blood Large Urine Nitrate Negative Urine Bilirubin Negative Urine Urobilinogen 0.2-1.0 Ur Leukocyte Esterase Trace Urine RBC (Auto) 168 H Urine Microscopic WBC 11 H Ur Squamous Epith Cells 2 Urine Bacteria Rare Hyaline Casts 6-10 H 01/11/18 01/11/18 13:37 14:00 WBC RBC Hgb Hct MCV MCH MCHC RDW Plt Count MPV Neut % (Auto) Lymph % (Auto) [place] % (Auto) Eos % (Auto) Baso % (Auto) Neut # (Auto) Lymph # (Auto) [place] # (Auto) Eos # (Auto) Baso # (Auto) PT 12.5 INR 1.1 APTT 33.6 pO2 15 L VBG pH 7.11 L* VBG pCO2 40 VBG HCO3 9.9 VBG Total CO2 13.9 L VBG O2 Sat (Calc) 29.5 L VBG Base Excess -16.2 L VBG Potassium 6.5 H* Glucose 417 H* D Lactate 2.9 H FiO2 21.0 Crit Value Called To Dr barnard Crit Value Called By Rt Crit Value Read Back Y Blood Gas Notified Time 1428 Sodium 129.0 L Potassium Chloride 101.0 Carbon Dioxide Anion Gap BUN Creatinine Est GFR ( Amer) Est GFR (Non-Af Amer) Random Glucose Calcium Total Bilirubin AST ALT Alkaline Phosphatase Total Protein Albumin Globulin Albumin/Globulin Ratio Venous Blood Potassium 6.5 H* Urine Color Urine Clarity Urine pH Ur Specific [place] Urine Protein Urine Glucose (UA) Urine Ketones Urine Blood Urine Nitrate Urine Bilirubin Urine Urobilinogen Ur Leukocyte Esterase Urine RBC (Auto) Urine Microscopic WBC Ur Squamous Epith Cells Urine Bacteria Hyaline Casts Laboratory Results - last 72 hr 01/11/18 01/11/18 01/11/18 12:30 12:30 12:30 WBC 2.5 L RBC 4.20 L Hgb 12.6 D Hct 37.2 MCV 88.6 D MCH 30.0 MCHC 33.8 RDW 15.6 H Plt Count 27 L* MPV 8.9 Neut % (Auto) 86.6 H Lymph % (Auto) 11.7 L [place] % (Auto) 1.5 Eos % (Auto) 0.1 Baso % (Auto) 0.1 Neut # (Auto) 2.2 Lymph # (Auto) 0.3 L [place] # (Auto) 0.0 Eos # (Auto) 0.0 Baso # (Auto) 0.0 PT INR APTT pO2 VBG pH VBG pCO2 VBG HCO3 VBG Total CO2 VBG O2 Sat (Calc) VBG Base Excess VBG Potassium Glucose Lactate FiO2 Crit Value Called To Crit Value Called By Crit Value Read Back Blood Gas Notified Time Sodium 131 L Potassium 6.8 H* D Chloride 99 Carbon Dioxide 10 L* D Anion Gap 29 H BUN 203 H* D Creatinine 5.5 H Est GFR ( Amer) 12 Est GFR (Non-Af Amer) 10 Random Glucose 463 H* D Calcium 6.9 L Total Bilirubin 0.5 AST 16 L ALT 31 Alkaline Phosphatase 73 Total Protein 6.2 L Albumin 3.0 L Globulin 3.1 Albumin/Globulin Ratio 1.0 Venous Blood Potassium Urine Color Yellow Urine Clarity Cloudy Urine pH 5.0 Ur Specific [place] 1.018 Urine Protein 100 Urine Glucose (UA) 50 Urine Ketones Negative Urine Blood Large Urine Nitrate Negative Urine Bilirubin Negative Urine Urobilinogen 0.2-1.0 Ur Leukocyte Esterase Trace Urine RBC (Auto) 168 H Urine Microscopic WBC 11 H Ur Squamous Epith Cells 2 Urine Bacteria Rare Hyaline Casts 6-10 H 01/11/18 01/11/18 13:37 14:00 WBC RBC Hgb Hct MCV MCH MCHC RDW Plt Count MPV Neut % (Auto) Lymph % (Auto) [place] % (Auto) Eos % (Auto) Baso % (Auto) Neut # (Auto) Lymph # (Auto) [place] # (Auto) Eos # (Auto) Baso # (Auto) PT 12.5 INR 1.1 APTT 33.6 pO2 15 L VBG pH 7.11 L* VBG pCO2 40 VBG HCO3 9.9 VBG Total CO2 13.9 L VBG O2 Sat (Calc) 29.5 L VBG Base Excess -16.2 L VBG Potassium 6.5 H* Glucose 417 H* D Lactate 2.9 H FiO2 21.0 Crit Value Called To Dr barnard Crit Value Called By Rt Crit Value Read Back Y Blood Gas Notified Time 1428 Sodium 129.0 L Potassium Chloride 101.0 Carbon Dioxide Anion Gap BUN Creatinine Est GFR ( Amer) Est GFR (Non-Af Amer) Random Glucose Calcium Total Bilirubin AST ALT Alkaline Phosphatase Total Protein Albumin Globulin Albumin/Globulin Ratio Venous Blood Potassium 6.5 H* Urine Color Urine Clarity Urine pH Ur Specific [place] Urine Protein Urine Glucose (UA) Urine Ketones Urine Blood Urine Nitrate Urine Bilirubin Urine Urobilinogen Ur Leukocyte Esterase Urine RBC (Auto) Urine Microscopic WBC Ur Squamous Epith Cells Urine Bacteria Hyaline Casts Microbiology 12/14/17 11:14 Urine,Catheterized Urine Culture - Final No Growth (<1,000 CFU/ML) 12/14/17 10:35 Blood-Venous Blood Culture - Final NO GROWTH AFTER 5 DAYS 12/14/17 10:30 Blood-Venous Blood Culture - Final 12/14/17 10:30 Blood-Venous Gram Stain - Final NO GROWTH AFTER 5 DAYS TEST NOT PERFORMED 12/01/17 11:30 Rectum Gram Stain - Final 12/01/17 11:30 Rectum Wound Culture - Final Enterococcus Faecalis Pseudomonas Aeruginosa 11/30/17 16:30 Urine Urine Culture - Final No Growth (<1,000 CFU/ML) 11/26/17 12:40 Blood-Venous Blood Culture - Final 11/26/17 12:40 Blood-Venous Gram Stain - Final NO GROWTH AFTER 5 DAYS TEST NOT PERFORMED Accession No. : [id number] Patient Name / ID : ALEJO MARTINES / [id number] Exam Date : 01/11/2018 13:22:19 ( Approved ) Study Comment : Sex / Age : M / 77Y Creator : Neville Schofield MD Dictator : Neville Schofield MD Car Shagger : Administrative Project Coordinator : Neville Schofield MD Approver2 : Report Date : 01/11/2018 14:02:32 My Comment : Date of service: 01/11/2018 HISTORY: Sepsis Patient COMPARISON: 01/02/2018 FINDINGS: LUNGS: No active pulmonary disease. PLEURA: No significant pleural effusion identified, no pneumothorax apparent. CARDIOVASCULAR: Normal. OSSEOUS STRUCTURES: No significant abnormalities. VISUALIZED UPPER ABDOMEN: Normal. OTHER FINDINGS: None. IMPRESSION: No active disease. Assessment & Plan - Assessment and Plan (Free Text) Assessment: A/P- 77 year old male with multiple medical conditions including DM II, chronic Right erlin toe necrotic Ulcer ,? OM , pancytopenia, MDS s/p first chemo admitted with nausea/vomiting, high lactate and glucose found to be in DKA, acute renal insufficiency, hyperkalemic. etiology of the DKA could be sepsis vs chemo induced and dehydration. afebrile pancytopenia chroonic leukopenic but not neutropenic. [place] hyperkalemia high lactate DKA ct abd report-pancolitis and ? bibasilar infiltrates as per report read by radiologist. Plan- check blood cx x 2 check UA and urine cx. check sputum cx. in light of all above and the fact that pt. is coming from [facility] advise to cover with broad spectrum antibiotics to cover for nosocomial pathogens. hence advise to place pt. on IV meropenem ( renal dose). advise to give 1 dose vanco only since he is in [place] pending further results. advise to get podiatry evaluation again for local wound care. DKA and acidosis management as per ICU team. All above d/w patient and his son who is at bedside at [facility]. All above also d/w DR.Pierre Guzmán at length. All labs and imaging reviewed. Thank you for this consult. ICU time 60 minutes.
--- NOTE | 2018-01-11 16:11 | CP.PCM.HP ---
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 Pt state that this is first time that happen, His doctor state that chemo can cause this but its too much to bare. Pt cant remember how much he have vomited but he denies seeing any blood except once which he think its due to the throat irritation. Pt also state that he has lost his appetite and he is having leg pain. denies having fever, chest pain, SOB, abdominal pain, diarrhea, dysuria, polyuria. PMD:Dr. Brown Hemo-Onc: Dr Pace Home meds:Feosol, Cilostazol, HCTZ Lidocaine 2%, Docusate, Docuisate/sennosides , flomax. PMHx: As HPI FHx: mother has bone cancer, family members w/ DM2 SHx: denies smoking now and in the past, denies alcohol use, denies drug use Next of kin: Ottoniel Diaz (son) [phone] Code status: full code ED course VS: WNL except Temp 95.7 chest xray no acute finding Ct pendin Labs: CBC, BMP reviewed Pt was given zofran inj 4mg iv for vomit Blanca hugger was was started due to his Temp Hypoglycemia protocol started ID consult was made admit to ICU under family practice for DKA Present on Admission - Present on Admission Any Indicators Present on Admission: Yes History of Uncontrolled Diabetes: Yes Review of Systems - Review of Systems All systems: reviewed and no additional remarkable complaints except - Constitutional Constitutional: absent: Fever - EENT Eyes: As Per HPI Ears: As Per HPI Nose/Mouth/Throat: As Per HPI - Cardiovascular Cardiovascular: absent: Chest Pain, Chest Pain at Rest, Chest Pain with Activity - Respiratory Respiratory: absent: Cough, Dyspnea, Hemoptysis - Gastrointestinal Gastrointestinal: Nausea, Vomiting. absent: Abdominal Pain, Belching, Diarrhea - Genitourinary Genitourinary: absent: Dysuria, Flank Pain - Reproductive: Male Reproductive:Male: As Per HPI - Musculoskeletal Musculoskeletal: As Per HPI - Psychiatric Psychiatric: As Per HPI - Endocrine Endocrine: As Per HPI Past Patient History - Infectious Disease Hx of Infectious Diseases: None - Tetanus Immunizations Tetanus Immunization: Unknown - Past Medical History & Family History Past Medical History?: Yes - Past Social History Smoking Status: Never Smoked - CARDIAC Hx Hypercholesterolemia: Yes Hx Hypertension: Yes - PULMONARY Hx Respiratory Disorders: No - NEUROLOGICAL Hx Neurological Disorder: No - HEENT Hx HEENT Problems: No - RENAL Hx Chronic Kidney Disease: Yes Hx Kidney Stones: Yes - ENDOCRINE/METABOLIC Hx Diabetes Mellitus Type 2: Yes - HEMATOLOGICAL/ONCOLOGICAL Hx Anemia: Yes Hx Human Immunodeficiency Virus (HIV): No - INTEGUMENTARY Hx Dermatological Problems: No - MUSCULOSKELETAL/RHEUMATOLOGICAL Hx Musculoskeletal Disorders: Yes Hx Falls: Yes Other/Comment: BONE CA (PER JAIL REPORT) - GASTROINTESTINAL Hx Gastrointestinal Disorders: No - GENITOURINARY/GYNECOLOGICAL Hx Genitourinary Disorders: No - PSYCHIATRIC Hx Depression: Yes - SURGICAL HISTORY Other/Comment: Bunion - ANESTHESIA Hx Anesthesia: Yes Hx Anesthesia Reactions: No Meds Allergies/Adverse Reactions: Allergies Allergy/AdvReac Type Severity Reaction Status Date / Time No Known Allergies Allergy Verified 01/11/18 11:58 Physical Exam - Constitutional Appears: Well, Non-toxic, No Acute Distress - Head Exam Head Exam: ATRAUMATIC, NORMAL INSPECTION, NORMOCEPHALIC - Eye Exam Eye Exam: EOMI, Normal appearance, PERRL Pupil Exam: NORMAL ACCOMODATION, PERRL - ENT Exam ENT Exam: Mucous Membranes Moist, Normal Exam - Neck Exam Neck exam: Positive for: Normal Inspection - Respiratory Exam Respiratory Exam: Clear to Auscultation Bilateral, NORMAL BREATHING PATTERN - Cardiovascular Exam Cardiovascular Exam: REGULAR RHYTHM, +S1, +S2 - GI/Abdominal Exam GI & Abdominal Exam: Normal Bowel Sounds, Soft. absent: Tenderness - Extremities Exam Extremities exam: Positive for: normal inspection Additional comments: Ulcer noted on the left ankle, And on the right sec toe. - Back Exam Back exam: NORMAL INSPECTION - Neurological Exam Neurological exam: Alert - Psychiatric Exam Psychiatric exam: Normal Affect - Skin Skin Exam: Dry, Intact, Normal Color, Warm Results - Vital Signs Recent Vital Signs: Last Vital Signs Temp 95.7 F L 01/11/18 13:23 Pulse 93 H 01/11/18 15:13 Resp 17 01/11/18 13:23 BP 127/75 01/11/18 13:23 Pulse Ox 97 01/11/18 13:23 - Labs Result Diagrams: 01/11/18 12:30 01/11/18 12:30 Labs: Laboratory Results - last 24 hr 01/11/18 01/11/18 01/11/18 12:30 12:30 12:30 WBC 2.5 L RBC 4.20 L Hgb 12.6 D Hct 37.2 MCV 88.6 D MCH 30.0 MCHC 33.8 RDW 15.6 H Plt Count 27 L* MPV 8.9 Neut % (Auto) 86.6 H Lymph % (Auto) 11.7 L [place] % (Auto) 1.5 Eos % (Auto) 0.1 Baso % (Auto) 0.1 Neut # (Auto) 2.2 Lymph # (Auto) 0.3 L [place] # (Auto) 0.0 Eos # (Auto) 0.0 Baso # (Auto) 0.0 PT INR APTT pO2 VBG pH VBG pCO2 VBG HCO3 VBG Total CO2 VBG O2 Sat (Calc) VBG Base Excess VBG Potassium Glucose Lactate FiO2 Crit Value Called To Crit Value Called By Crit Value Read Back Blood Gas Notified Time Sodium 131 L Potassium 6.8 H* D Chloride 99 Carbon Dioxide 10 L* D Anion Gap 29 H BUN 203 H* D Creatinine 5.5 H Est GFR ( Amer) 12 Est GFR (Non-Af Amer) 10 Random Glucose 463 H* D Calcium 6.9 L Total Bilirubin 0.5 AST 16 L ALT 31 Alkaline Phosphatase 73 Total Protein 6.2 L Albumin 3.0 L Globulin 3.1 Albumin/Globulin Ratio 1.0 Venous Blood Potassium Urine Color Yellow Urine Clarity Cloudy Urine pH 5.0 Ur Specific [place] 1.018 Urine Protein 100 Urine Glucose (UA) 50 Urine Ketones Negative Urine Blood Large Urine Nitrate Negative Urine Bilirubin Negative Urine Urobilinogen 0.2-1.0 Ur Leukocyte Esterase Trace Urine RBC (Auto) 168 H Urine Microscopic WBC 11 H Ur Squamous Epith Cells 2 Urine Bacteria Rare Hyaline Casts 6-10 H 01/11/18 01/11/18 13:37 14:00 WBC RBC Hgb Hct MCV MCH MCHC RDW Plt Count MPV Neut % (Auto) Lymph % (Auto) [place] % (Auto) Eos % (Auto) Baso % (Auto) Neut # (Auto) Lymph # (Auto) [place] # (Auto) Eos # (Auto) Baso # (Auto) PT 12.5 INR 1.1 APTT 33.6 pO2 15 L VBG pH 7.11 L* VBG pCO2 40 VBG HCO3 9.9 VBG Total CO2 13.9 L VBG O2 Sat (Calc) 29.5 L VBG Base Excess -16.2 L VBG Potassium 6.5 H* Glucose 417 H* D Lactate 2.9 H FiO2 21.0 Crit Value Called To Dr barnard Crit Value Called By Rt Crit Value Read Back Y Blood Gas Notified Time 1428 Sodium 129.0 L Potassium Chloride 101.0 Carbon Dioxide Anion Gap BUN Creatinine Est GFR ( Amer) Est GFR (Non-Af Amer) Random Glucose Calcium Total Bilirubin AST ALT Alkaline Phosphatase Total Protein Albumin Globulin Albumin/Globulin Ratio Venous Blood Potassium 6.5 H* Urine Color Urine Clarity Urine pH Ur Specific [place] Urine Protein Urine Glucose (UA) Urine Ketones Urine Blood Urine Nitrate Urine Bilirubin Urine Urobilinogen Ur Leukocyte Esterase Urine RBC (Auto) Urine Microscopic WBC Ur Squamous Epith Cells Urine Bacteria Hyaline Casts Assessment & Plan - Assessment and Plan (Free Text) Assessment: Pt is 77 yo m with PMH of myelodysplastic syndrome, with sec pancytopenia, CKD HTN, DM, Chronic right great toe ulcration with osteomyeloitis admitted for managment of DKA DKA Admit to ICU Insulin drip start at 7 unit per h Fluid NS Accu check every 1 h F/u K level hypoglycemia protocol Neuro check every 2 h Symptomatic Anemia Most likely due MDS No evidence of active bleeding at this time F/u CBC Myelodysplastic Syndrome with Pancytopenia Platelets on admission 27 its stable compared to last admission WBC on admission 2.5 (stable) Hgb on admission 33.8 start iron replacement start stool softener, and lactulose for constipation Consult hemo-Onc (Dr. Pace) Right big toe necrosis Seen by Vascular and Podiatry specialist in last admission who recommended no interventions due to his MDS and thrombocytopenia. Gets wound care at [facility] rehab F/U wound care by Podiatry Meropenem day 1 Vanco day 1 HTN controlled Continue home med CKD stage 4 Worsening Renal function vs Acute on CKD F/U BMP External Hemorrhoids Avoid constipation no active bleeding or thrombosed Prophylaxis NO anticoagulant for DVT prophylaxis due to thrombocytopenia platelets on admission 30 SCDs - Date & Time Date: 01/11/18 Time: 17:00
--- NOTE | 2018-01-11 16:12 | CT ---
Date of service: 01/11/2018 PROCEDURE: CT Abdomen and Pelvis without intravenous contrast HISTORY: abd pain COMPARISON: 11/26/2017 TECHNIQUE: Without contrast.. Contrast dose: 0 Radiation dose: Total exam DLP = 403.20 mGy-cm. This CT exam was performed using one or more of the following dose reduction techniques: Automated exposure control, adjustment of the mA and/or kV according to patient size, and/or use of iterative reconstruction technique. FINDINGS: LOWER THORAX: Bilateral lower lobe infiltrates, right greater than left. LIVER: Normal size, contour and attenuation. Multiple punctate calcifications consistent with old calcified granulomas. No mass. No biliary dilatation. GALLBLADDER AND BILE DUCTS: Unremarkable. PANCREAS: Unremarkable. No gross lesion or ductal dilatation. SPLEEN: Unremarkable. ADRENALS: Unremarkable. No mass. KIDNEYS AND URETERS: Numerous right renal cortical cysts unchanged from prior examination. No definite solid mass identified. Coarse and curvilinear thin calcifications are again evident. The left kidney is unremarkable in appearance. There is no hydronephrosis. VASCULATURE: Unremarkable. No aortic aneurysm. BOWEL: There is willard colonic mural thickening consistent with diffuse colitis, nonspecific. There is no bowel obstruction. The stomach is distended and contains fluid and gas. APPENDIX: Not definitely identified. PERITONEUM: Mild ascites. No pneumoperitoneum. LYMPH NODES: Unremarkable. No enlarged lymph nodes. BLADDER: Suboptimally distended. Diffusely thickened wall may indicate cystitis. Please correlate with urinalysis. Henriquez catheter noted. REPRODUCTIVE: Normal prostate. BONES: No acute fracture. OTHER FINDINGS: None. IMPRESSION: Willard colitis. Possible cystitis. Mild ascites, nonspecific. Bilateral lower lobe pulmonary infiltrate suspicious for pneumonia. Additional findings as above.
[2018-01-11] MEDS: Sodium Chloride 0.9% 1,000 ML IV SCH ×2 (17:45→18:50)
[2018-01-11] MEDS: Meropenem 500 MG in Sodium Chloride 0.9% 100 ML IVPB SCH ×2 (18:19→21:58)
--- NOTE | 2018-01-11 18:37 | CP.CCUPN ---
<Jake Brown - Last Filed: 01/12/18 07:48> CCU Subjective - Physician Review Subjective (Free Text): 01/11/18 17:57 ICU Initial Note 77 y/o M with a PMHx of DM 2, R first toe osteomylitis, MDS w/ secondary pancytopenia transferred to ED from skilled nursing due to 3 days-Hx of constant emesis. Pt has initiated unspecified chemotherapy for MDS 4 days ago. Pt is tired and weak, minimally responsive but oriented in person. Pt complains of nausea, vomiting and R toe pain. Pt has had a daily episode of bilious vomiting since 1 month ago. At ER: -Pt was initiated on IV insulin drip -Only 1 bag of IV NS was administered. -1x dose of Zosyn and 1x dose of Vancomycin CCU Objective - Vital Signs / Intake & Output Vital Signs (Last 4 hours): Vital Signs Temp Pulse Resp BP Pulse Ox 01/11/18 16:45 93 H 01/11/18 16:30 95 F L 91 H 21 121/55 L 96 01/11/18 16:26 93 H Intake and Output (Last 8hrs): Intake & Output 01/11/18 01/11/18 01/11/18 06:59 14:59 22:59 Weight 44.906 kg - Physical Exam Physical Exam Limitations: Positive for: Altered Mental Status Head: Positive for: Atraumatic, Normocephalic Extroacular Muscles: Positive for: EOMI Mouth: Positive for: Dry Nose (Internal): Positive for: Normal Inspection Neck: Positive for: Normal Range of Motion Respiratory/Chest: Positive for: Good Air Exchange Cardiovascular: Positive for: Regular Rate and Rhythm Abdomen: Negative for: Tenderness, Distention Upper Extremity: Positive for: Normal Inspection Lower Extremity: Positive for: Normal Inspection - Medications Active Medications: Active Medications Generic Name Dose Route Start Last Admin Trade Name Freq PRN Reason Stop Dose Admin Dextrose 0 ml 01/11/18 14:32 Dextrose 50% Inj IV STAT PRN Hypoglycemia Protocol Protocol Dextrose 0 gm 01/11/18 14:32 Glutose 15 PO ONCE PRN Hypoglycemia Protocol Protocol Glucagon 0 mg 01/11/18 14:32 Glucagen Diagnostic Kit IM STAT PRN Hypoglycemia Protocol Protocol Insulin Human Regular 100 101 mls @ 7.07 mls/hr 01/11/18 14:45 01/11/18 16:10 units/ Sodium Chloride IV 7.07 mls/hr .[id number] [place] Administration Protocol 7 UNIT/HR Meropenem 500 mg/ Sodium 100 mls @ 100 mls/hr 01/11/18 17:30 Chloride IVPB Q12 [place] Protocol Sodium Chloride 1,000 mls @ 999 mls/hr 01/11/18 18:00 Sodium Chloride 0.9% IV 01/11/18 21:00 .Q1H1M [place] - Patient Studies Lab Studies: Lab Studies 01/11/18 01/11/18 01/11/18 Range/Units 17:32 14:00 13:37 WBC (4.8-10.8) K/uL RBC (4.40-5.90) Mil/uL Hgb (12.0-18.0) g/dL Hct (35.0-51.0) % MCV (80.0-94.0) fl MCH (27.0-31.0) pg MCHC (33.0-37.0) g/dL RDW (11.5-14.5) % Plt Count (130-400) K/uL MPV (7.2-11.7) fl Neut % (Auto) (50.0-75.0) % Lymph % (Auto) (20.0-40.0) % [place] % (Auto) (0.0-10.0) % Eos % (Auto) (0.0-4.0) % Baso % (Auto) (0.0-2.0) % Neut # (Auto) (1.8-7.0) K/uL Lymph # (Auto) (1.0-4.3) K/uL [place] # (Auto) (0.0-0.8) K/uL Eos # (Auto) (0.0-0.7) K/uL Baso # (Auto) (0.0-0.2) K/uL PT 12.5 (9.8-13.1) Seconds INR 1.1 (0.9-1.2) APTT 33.6 (25.6-37.1) Seconds pO2 15 L (30-55) mm/Hg VBG pH 7.11 L* (7.32-7.43) VBG pCO2 40 (40-60) mmHg VBG HCO3 9.9 mmol/L VBG Total CO2 13.9 L (22-28) mmol/L VBG O2 Sat (Calc) 29.5 L (40-65) % VBG Base Excess -16.2 L (0.0-2.0) mmol/L VBG Potassium 6.5 H* (3.6-5.2) mmol/L Glucose 417 H* D (75-110) mg/dL Lactate 2.9 H (0.7-2.1) mmol/L FiO2 21.0 % Crit Value Called To Dr barnard Crit Value Called By Rt Crit Value Read Back Y Blood Gas Notified Time 1428 Sodium 129.0 L (132-148) mmol/l Potassium (3.6-5.0) MMOL/L Chloride 101.0 (98-107) mmol/L Carbon Dioxide (22-30) mmol/L Anion Gap (10-20) BUN (9-20) mg/dl Creatinine (0.8-1.5) mg/dl Est GFR ( Amer) Est GFR (Non-Af Amer) POC Glucose (mg/dL) 293 H (65-110) mg/dL Random Glucose (75-110) mg/dL Calcium (8.4-10.2) mg/dL Total Bilirubin (0.2-1.3) mg/dl AST (17-59) U/L ALT (21-72) U/L Alkaline Phosphatase (38-126) U/L Total Protein (6.3-8.2) G/DL Albumin (3.5-5.0) g/dL Globulin (2.2-3.9) gm/dL Albumin/Globulin Ratio (1.0-2.1) Venous Blood Potassium 6.5 H* (3.6-5.2) mmol/L Urine Color (YELLOW) Urine Clarity (Clear) Urine pH (5.0-8.0) Ur Specific [place] (1.003-1.030) Urine Protein (NEGATIVE) mg/dL Urine Glucose (UA) (Normal) mg/dL Urine Ketones (NEGATIVE) mg/dL Urine Blood (NEGATIVE) Urine Nitrate (NEGATIVE) Urine Bilirubin (NEGATIVE) Urine Urobilinogen (0.2-1.0) mg/dL Ur Leukocyte Esterase (Negative) Patric/uL Urine RBC (Auto) (0-3) /hpf Urine Microscopic WBC (0-5) /hpf Ur Squamous Epith Cells (0-5) /hpf Urine Bacteria (<OCC) Hyaline Casts (0-2) /hpf 01/11/18 01/11/18 01/11/18 Range/Units 12:30 12:30 12:30 WBC 2.5 L (4.8-10.8) K/uL RBC 4.20 L (4.40-5.90) Mil/uL Hgb 12.6 D (12.0-18.0) g/dL Hct 37.2 (35.0-51.0) % MCV 88.6 D (80.0-94.0) fl MCH 30.0 (27.0-31.0) pg MCHC 33.8 (33.0-37.0) g/dL RDW 15.6 H (11.5-14.5) % Plt Count 27 L* (130-400) K/uL MPV 8.9 (7.2-11.7) fl Neut % (Auto) 86.6 H (50.0-75.0) % Lymph % (Auto) 11.7 L (20.0-40.0) % [place] % (Auto) 1.5 (0.0-10.0) % Eos % (Auto) 0.1 (0.0-4.0) % Baso % (Auto) 0.1 (0.0-2.0) % Neut # (Auto) 2.2 (1.8-7.0) K/uL Lymph # (Auto) 0.3 L (1.0-4.3) K/uL [place] # (Auto) 0.0 (0.0-0.8) K/uL Eos # (Auto) 0.0 (0.0-0.7) K/uL Baso # (Auto) 0.0 (0.0-0.2) K/uL PT (9.8-13.1) Seconds INR (0.9-1.2) APTT (25.6-37.1) Seconds pO2 (30-55) mm/Hg VBG pH (7.32-7.43) VBG pCO2 (40-60) mmHg VBG HCO3 mmol/L VBG Total CO2 (22-28) mmol/L VBG O2 Sat (Calc) (40-65) % VBG Base Excess (0.0-2.0) mmol/L VBG Potassium (3.6-5.2) mmol/L Glucose (75-110) mg/dL Lactate (0.7-2.1) mmol/L FiO2 % Crit Value Called To Crit Value Called By Crit Value Read Back Blood Gas Notified Time Sodium 131 L (132-148) mmol/l Potassium 6.8 H* D (3.6-5.0) MMOL/L Chloride 99 (98-107) mmol/L Carbon Dioxide 10 L* D (22-30) mmol/L Anion Gap 29 H (10-20) BUN 203 H* D (9-20) mg/dl Creatinine 5.5 H (0.8-1.5) mg/dl Est GFR ( Amer) 12 Est GFR (Non-Af Amer) 10 POC Glucose (mg/dL) (65-110) mg/dL Random Glucose 463 H* D (75-110) mg/dL Calcium 6.9 L (8.4-10.2) mg/dL Total Bilirubin 0.5 (0.2-1.3) mg/dl AST 16 L (17-59) U/L ALT 31 (21-72) U/L Alkaline Phosphatase 73 (38-126) U/L Total Protein 6.2 L (6.3-8.2) G/DL Albumin 3.0 L (3.5-5.0) g/dL Globulin 3.1 (2.2-3.9) gm/dL Albumin/Globulin Ratio 1.0 (1.0-2.1) Venous Blood Potassium (3.6-5.2) mmol/L Urine Color Yellow (YELLOW) Urine Clarity Cloudy (Clear) Urine pH 5.0 (5.0-8.0) Ur Specific [place] 1.018 (1.003-1.030) Urine Protein 100 (NEGATIVE) mg/dL Urine Glucose (UA) 50 (Normal) mg/dL Urine Ketones Negative (NEGATIVE) mg/dL Urine Blood Large (NEGATIVE) Urine Nitrate Negative (NEGATIVE) Urine Bilirubin Negative (NEGATIVE) Urine Urobilinogen 0.2-1.0 (0.2-1.0) mg/dL Ur Leukocyte Esterase Trace (Negative) Patric/uL Urine RBC (Auto) 168 H (0-3) /hpf Urine Microscopic WBC 11 H (0-5) /hpf Ur Squamous Epith Cells 2 (0-5) /hpf Urine Bacteria Rare (<OCC) Hyaline Casts 6-10 H (0-2) /hpf Laboratory Results - last 24 hr 01/11/18 01/11/18 01/11/18 12:30 12:30 12:30 WBC 2.5 L RBC 4.20 L Hgb 12.6 D Hct 37.2 MCV 88.6 D MCH 30.0 MCHC 33.8 RDW 15.6 H Plt Count 27 L* MPV 8.9 Neut % (Auto) 86.6 H Lymph % (Auto) 11.[address] [place] % (Auto) 1.5 Eos % (Auto) 0.1 Baso % (Auto) 0.1 Neut # (Auto) 2.2 Lymph # (Auto) 0.[address] [place] # (Auto) 0.0 Eos # (Auto) 0.0 Baso # (Auto) 0.0 PT INR APTT pO2 VBG pH VBG pCO2 VBG HCO3 VBG Total CO2 VBG O2 Sat (Calc) VBG Base Excess VBG Potassium Glucose Lactate FiO2 Crit Value Called To Crit Value Called By Crit Value Read Back Blood Gas Notified Time Sodium 131 L Potassium 6.8 H* D Chloride 99 Carbon Dioxide 10 L* D Anion Gap 29 H BUN 203 H* D Creatinine 5.5 H Est GFR ( Amer) 12 Est GFR (Non-Af Amer) 10 POC Glucose (mg/dL) Random Glucose 463 H* D Calcium 6.9 L Total Bilirubin 0.5 AST 16 L ALT 31 Alkaline Phosphatase 73 Total Protein 6.2 L Albumin 3.0 L Globulin 3.1 Albumin/Globulin Ratio 1.0 Venous Blood Potassium Urine Color Yellow Urine Clarity Cloudy Urine pH 5.0 Ur Specific [place] 1.018 Urine Protein 100 Urine Glucose (UA) 50 Urine Ketones Negative Urine Blood Large Urine Nitrate Negative Urine Bilirubin Negative Urine Urobilinogen 0.2-1.0 Ur Leukocyte Esterase Trace Urine RBC (Auto) 168 H Urine Microscopic WBC 11 H Ur Squamous Epith Cells 2 Urine Bacteria Rare Hyaline Casts 6-10 H 01/11/18 01/11/18 01/11/18 13:37 14:00 17:32 WBC RBC Hgb Hct MCV MCH MCHC RDW Plt Count MPV Neut % (Auto) Lymph % (Auto) [place] % (Auto) Eos % (Auto) Baso % (Auto) Neut # (Auto) Lymph # (Auto) [place] # (Auto) Eos # (Auto) Baso # (Auto) PT 12.5 INR 1.1 APTT 33.6 pO2 15 L VBG pH 7.11 L* VBG pCO2 40 VBG HCO3 9.9 VBG Total CO2 13.9 L VBG O2 Sat (Calc) 29.5 L VBG Base Excess -16.2 L VBG Potassium 6.5 H* Glucose 417 H* D Lactate 2.9 H FiO2 21.0 Crit Value Called To Dr barnard Crit Value Called By Rt Crit Value Read Back Y Blood Gas Notified Time 1428 Sodium 129.0 L Potassium Chloride 101.0 Carbon Dioxide Anion Gap BUN Creatinine Est GFR ( Amer) Est GFR (Non-Af Amer) POC Glucose (mg/dL) 293 H Random Glucose Calcium Total Bilirubin AST ALT Alkaline Phosphatase Total Protein Albumin Globulin Albumin/Globulin Ratio Venous Blood Potassium 6.5 H* Urine Color Urine Clarity Urine pH Ur Specific [place] Urine Protein Urine Glucose (UA) Urine Ketones Urine Blood Urine Nitrate Urine Bilirubin Urine Urobilinogen Ur Leukocyte Esterase Urine RBC (Auto) Urine Microscopic WBC Ur Squamous Epith Cells Urine Bacteria Hyaline Casts EKG/Cardiology Studies: Cardiology / EKG Studies 01/11/18 13:21 ELECTROCARDIOGRAM Stat Comment: Mode Of Transportation: Reason For Exam: Sepsis Patient Review of Systems - Review of Systems Systems not reviewed;Unavailable: Altered Mental Status Assessment/Plan - Assessment and Plan (Free Text) Assessment: 77 y/o M with a PMHx of DM 2, R first toe osteomylitis, MDS w/ secondary pancytopenia admitted for management of DKA as pt has been persistently vomiting for 3 days after initiating daily chemotherapy 4 days ago. >Diabetic Keto-Acidosis -3 bolus bags of IV NS -Insulin drip -IV D5W1/2NS at 125mL/hr after bolus. -Check sugar levels Q2H -Monitor Bicarbonate and potassium levels -Hypoglycemia protocol >Emesis, abdominal pain -CT scan: Mac colitis, possible cystitis and b/l lower pneumonia. -ID on consult, Dr Bright -Meropenem was initiated as per ID. >Thrombocytopenia -Secondary to MDS. -Platelets 27-low -Monitor CBC >Anemia, symptomatic -Secondary to MDS -On Iron supplement >Myelodysplastic Syndrome -Hematology on consult, Katelynn. 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 -Podiatry on consult >Acute Kidney Injury -Possibly due to dehydration/CKD -IV fluids -F/U CMP >DVT prophylaxis -SCD's <Shade Van - Last Filed: 01/12/18 07:58> CCU Subjective - Physician Review Subjective (Free Text): Attestation: Patient seen and examined at the bedside with Resident Dr. Susana Brown; and I agree with his outline of plans and management documented as discussed today; reflecting my review of all applicable clinical data, and participation in the care of the patient throughout the day in ICU; today, January 11, 2018.
[2018-01-11] MEDS ORDERED: Sodium Chloride 0.9% 1,000 ML IV SCH (19:15)
[2018-01-11] MEDS ORDERED: Mag&Al/Simet/Diphen/Lido 237 ML KIT BU ONE (23:45)
[2018-01-12] MEDS ORDERED: Dextrose 5%/0.45% NS 1,000 ML IV SCH (00:15)
--- NOTE | 2018-01-12 06:39 | CP.PCM.PN ---
Objective - Vital Signs/Intake and Output Vital Signs (last 24 hours): Temp Pulse Resp BP Pulse Ox 97.9 F 97 H 24 99/56 L 96 01/12/18 05:40 01/12/18 05:40 01/12/18 05:40 01/12/18 05:40 01/12/18 05:40 Intake and Output: 01/11/18 01/12/18 18:59 06:59 Intake Total 1000 1525 Output Total 90 Balance 1000 1435 - Medications Medications: Current Medications Dextrose (Dextrose 50% Inj) 0 ml IV STAT PRN; Protocol PRN Reason: Hypoglycemia Protocol Dextrose (Glutose 15) 0 gm PO ONCE PRN; Protocol PRN Reason: Hypoglycemia Protocol Ferrous Sulfate (Feosol) 325 mg PO TID [place] Gabapentin (Neurontin) 300 mg PO TID [place] Glucagon (Glucagen Diagnostic Kit) 0 mg IM STAT PRN; Protocol PRN Reason: Hypoglycemia Protocol Meropenem 500 mg/ Sodium (Chloride) 100 mls @ 100 mls/hr IVPB Q12 [place] PRN Reason: Protocol Last Admin: 01/11/18 21:58 Dose: 100 mls/hr Dextrose/Sodium Chloride (Dextrose 5%/0.45% Ns 1000 Ml) 1,000 mls @ 125 mls/hr IV .Q8H [place] Stop: 01/12/18 08:14 Last Admin: 01/12/18 02:12 Dose: 125 mls/hr Insulin Human Regular 100 (units/ Sodium Chloride) 101 mls @ 5.05 mls/hr IV .Q20H [place]; 5 U/HR PRN Reason: Protocol Pantoprazole Sodium (Protonix Inj) 40 mg IVP DAILY [place] - Labs Labs: 01/11/18 12:30 01/12/18 01:05 PT 12.5 Seconds (9.8-13.1) 01/11/18 13:37 INR 1.1 (0.9-1.2) 01/11/18 13:37 APTT 33.6 Seconds (25.6-37.1) 01/11/18 13:37
[2018-01-12] MEDS ORDERED: Sodium Chloride 0.9% 1,000 ML IV SCH (08:45)
[2018-01-12 08:53] LABS: BASO % 0.1 % (0.0-2.0); EOS % 0.3 % (0.0-4.0); HEMOGLOBIN 9.1 g/dL (12.0-18.0); LYMPH # 0.3 K/uL (1.0-4.3); LYMPH % 29.4 % (20.0-40.0); MEAN CELL VOLUME 89.6 fl (80.0-94.0); MEAN CORPUSCULAR HEMOGLOBIN 30.4 pg (27.0-31.0); MEAN PLATELET VOLUME 8.9 fl (7.2-11.7); MONO % 2.1 % (0.0-10.0); NEUT # 0.6 K/uL (1.8-7.0); NEUT % 68.1 % (50.0-75.0); NRBC % 0.5 % (0.0-0.0); RBC 2.99 Mil/uL (4.40-5.90); RED CELL DISTRIBUTION WIDTH 15.4 % (11.5-14.5)
[2018-01-12 09:00] LABS: WHITE BLOOD COUNT 0.9 K/uL (4.8-10.8)
[2018-01-12] MEDS ORDERED: Cilostazol 100 mg Tab UD PO SCH (09:00)
[2018-01-12 09:33] LABS: ALB/GLOB RATIO 0.8 (1.0-2.1); ALBUMIN 2.1 g/dL (3.5-5.0); CALCIUM 6.1 mg/dL (8.4-10.2)
[2018-01-12 10:18] LABS: CALCIUM 5.8 mg/dL (8.4-10.2)
[2018-01-12] MEDS: Meropenem 500 MG in Sodium Chloride 0.9% 100 ML IVPB SCH ×2 (11:25→20:53)
--- NOTE | 2018-01-12 12:05 | CP.PCM.CON ---
History of Present Illness - History of Present Illness History of Present Illness: 77 year old male with a history of DM, MDS diagnosed 08/2017, started on hypomethylating agent treatment (01/08-01/10) admitted with DKA, sepsis, pancytopenia. The patient is well known to me and has been receiving decitabine treatment with me in the office. He started his treatment this past Monday but was only able to complete 3 days of therapy due to his current admission. Past medical history: DM, HL, MDS, right toe osteomyelitis, Past surgical history: Foot surgery Family history: Mother had bone cancer Social history: Denies tobacco, alcohol, and illicit drug use. Allergies: NKA Review of systems: All remaining review of systems including HEENT, cardiovascular, respiratory, gastrointestinal, genitourinary, musculoskeletal, dermatologic, neurologic, and psychiatric are negative unless mentioned in the HPI. Past Patient History - Infectious Disease Hx of Infectious Diseases: None - Tetanus Immunizations Tetanus Immunization: Unknown - Past Medical History & Family History Past Medical History?: Yes - Past Social History Alcohol: None Drugs: Denies - CARDIAC Hx Hypercholesterolemia: Yes Hx Hypertension: Yes - PULMONARY Hx Respiratory Disorders: No - NEUROLOGICAL Hx Neurological Disorder: No - HEENT Hx HEENT Problems: No - RENAL Hx Chronic Kidney Disease: Yes Hx Kidney Stones: Yes - ENDOCRINE/METABOLIC Hx Diabetes Mellitus Type 2: Yes - HEMATOLOGICAL/ONCOLOGICAL Hx Anemia: Yes Hx Human Immunodeficiency Virus (HIV): No - INTEGUMENTARY Hx Dermatological Problems: No - MUSCULOSKELETAL/RHEUMATOLOGICAL Hx Musculoskeletal Disorders: Yes Hx Falls: Yes Other/Comment: BONE CA (PER LONG-TERM REPORT) - GASTROINTESTINAL Hx Gastrointestinal Disorders: No - GENITOURINARY/GYNECOLOGICAL Hx Genitourinary Disorders: No - PSYCHIATRIC Hx Depression: Yes - SURGICAL HISTORY Other/Comment: Bunion - ANESTHESIA Hx Anesthesia: Yes Hx Anesthesia Reactions: No Meds Allergies/Adverse Reactions: Allergies Allergy/AdvReac Type Severity Reaction Status Date / Time No Known Allergies Allergy Verified 01/11/18 11:58 - Medications Medications: Current Medications Dextrose (Dextrose 50% Inj) 0 ml IV STAT PRN; Protocol PRN Reason: Hypoglycemia Protocol Dextrose (Glutose 15) 0 gm PO ONCE PRN; Protocol PRN Reason: Hypoglycemia Protocol Ferrous Sulfate (Feosol) 325 mg PO TID [facility] Last Admin: 01/12/18 09:37 Dose: Not Given Gabapentin (Neurontin) 300 mg PO TID [facility] Last Admin: 01/12/18 09:37 Dose: Not Given Glucagon (Glucagen Diagnostic Kit) 0 mg IM STAT PRN; Protocol PRN Reason: Hypoglycemia Protocol Meropenem 500 mg/ Sodium (Chloride) 100 mls @ 100 mls/hr IVPB Q12 [place] PRN Reason: Protocol Last Admin: 01/12/18 11:25 Dose: 100 mls/hr Dextrose/Sodium Chloride (Dextrose 5%-0.45% Ns 500 Ml) 1,000 mls @ 175 mls/hr IV .Q5H43M [facility] Stop: 01/13/18 08:46 Last Admin: 01/12/18 10:24 Dose: 175 mls/hr Insulin Human Regular 100 (units/ Sodium Chloride) 101 mls @ 3.03 mls/hr IV .Q24H [place]; 3 UNITS/HR PRN Reason: Protocol Last Titration: 01/12/18 11:24 Dose: 1.5 units/hr, 1.51 mls/hr Ondansetron HCl (Zofran Inj) 4 mg IVP Q6 PRN PRN Reason: Nausea/Vomiting Last Admin: 01/12/18 10:26 Dose: 4 mg Pantoprazole Sodium (Protonix Inj) 40 mg IVP DAILY [facility] Last Admin: 01/12/18 09:38 Dose: 40 mg Physical Exam - Head Exam Head Exam: ATRAUMATIC - Eye Exam Eye Exam: Normal appearance - ENT Exam ENT Exam: Mucous Membranes Dry - Respiratory Exam Respiratory Exam: NORMAL BREATHING PATTERN - Cardiovascular Exam Cardiovascular Exam: +S1, +S2 - GI/Abdominal Exam GI & Abdominal Exam: Normal Bowel Sounds - Extremities Exam Additional comments: right foot dressing Results - Vital Signs Recent Vital Signs: Last Vital Signs Temp 97.8 F 01/12/18 08:00 Pulse 91 H 01/12/18 10:00 Resp 13 01/12/18 08:00 BP 136/62 01/12/18 10:00 Pulse Ox 100 01/12/18 08:00 - Labs Result Diagrams: 01/12/18 08:25 01/12/18 10:00 Labs: Laboratory Results - last 24 hr 01/11/18 01/11/18 01/11/18 12:30 12:30 12:30 WBC 2.5 L RBC 4.20 L Hgb 12.6 D Hct 37.2 MCV 88.6 D MCH 30.0 MCHC 33.8 RDW 15.6 H Plt Count 27 L* MPV 8.9 Neut % (Auto) 86.6 H Lymph % (Auto) 11.7 L Yates % (Auto) 1.5 Eos % (Auto) 0.1 Baso % (Auto) 0.1 Neut # (Auto) 2.2 Lymph # (Auto) 0.3 L Yates # (Auto) 0.0 Eos # (Auto) 0.0 Baso # (Auto) 0.0 PT INR APTT pO2 VBG pH VBG pCO2 VBG HCO3 VBG Total CO2 VBG O2 Sat (Calc) VBG Base Excess VBG Potassium Glucose Lactate FiO2 Crit Value Called To Crit Value Called By Crit Value Read Back Blood Gas Notified Time Sodium 131 L Potassium 6.8 H* D Chloride 99 Carbon Dioxide 10 L* D Anion Gap 29 H BUN 203 H* D Creatinine 5.5 H Est GFR ( Amer) 12 Est GFR (Non-Af Amer) 10 POC Glucose (mg/dL) Random Glucose 463 H* D Lactic Acid Calcium 6.9 L Total Bilirubin 0.5 AST 16 L ALT 31 Alkaline Phosphatase 73 Total Protein 6.2 L Albumin 3.0 L Globulin 3.1 Albumin/Globulin Ratio 1.0 Venous Blood Potassium Urine Color Yellow Urine Clarity Cloudy Urine pH 5.0 Ur Specific Banks 1.018 Urine Protein 100 Urine Glucose (UA) 50 Urine Ketones Negative Urine Blood Large Urine Nitrate Negative Urine Bilirubin Negative Urine Urobilinogen 0.2-1.0 Ur Leukocyte Esterase Trace Urine RBC (Auto) 168 H Urine Microscopic WBC 11 H Ur Squamous Epith Cells 2 Urine Bacteria Rare Hyaline Casts 6-10 H 01/11/18 01/11/18 01/11/18 13:37 14:00 17:32 WBC RBC Hgb Hct MCV MCH MCHC RDW Plt Count MPV Neut % (Auto) Lymph % (Auto) Yates % (Auto) Eos % (Auto) Baso % (Auto) Neut # (Auto) Lymph # (Auto) Yates # (Auto) Eos # (Auto) Baso # (Auto) PT 12.5 INR 1.1 APTT 33.6 pO2 15 L VBG pH 7.11 L* VBG pCO2 40 VBG HCO3 9.9 VBG Total CO2 13.9 L VBG O2 Sat (Calc) 29.5 L VBG Base Excess -16.2 L VBG Potassium 6.5 H* Glucose 417 H* D Lactate 2.9 H FiO2 21.0 Crit Value Called To Dr barnard Crit Value Called By Rt Crit Value Read Back Y Blood Gas Notified Time 1428 Sodium 129.0 L Potassium Chloride 101.0 Carbon Dioxide Anion Gap BUN Creatinine Est GFR ( Amer) Est GFR (Non-Af Amer) POC Glucose (mg/dL) 293 H Random Glucose Lactic Acid Calcium Total Bilirubin AST ALT Alkaline Phosphatase Total Protein Albumin Globulin Albumin/Globulin Ratio Venous Blood Potassium 6.5 H* Urine Color Urine Clarity Urine pH Ur Specific Banks Urine Protein Urine Glucose (UA) Urine Ketones Urine Blood Urine Nitrate Urine Bilirubin Urine Urobilinogen Ur Leukocyte Esterase Urine RBC (Auto) Urine Microscopic WBC Ur Squamous Epith Cells Urine Bacteria Hyaline Casts 01/11/18 01/11/18 01/12/18 21:36 23:01 01:05 WBC RBC Hgb Hct MCV MCH MCHC RDW Plt Count MPV Neut % (Auto) Lymph % (Auto) Yates % (Auto) Eos % (Auto) Baso % (Auto) Neut # (Auto) Lymph # (Auto) Yates # (Auto) Eos # (Auto) Baso # (Auto) PT INR APTT pO2 VBG pH VBG pCO2 VBG HCO3 VBG Total CO2 VBG O2 Sat (Calc) VBG Base Excess VBG Potassium Glucose Lactate FiO2 Crit Value Called To Crit Value Called By Crit Value Read Back Blood Gas Notified Time Sodium 140 Potassium 5.4 H Chloride 112 H Carbon Dioxide 9 L* Anion Gap 24 H BUN 194 H* Creatinine 5.0 H Est GFR ( Amer) 14 Est GFR (Non-Af Amer) 11 POC Glucose (mg/dL) 187 H 191 H Random Glucose 150 H Lactic Acid Calcium 6.0 L* Total Bilirubin AST ALT Alkaline Phosphatase Total Protein Albumin Globulin Albumin/Globulin Ratio Venous Blood Potassium Urine Color Urine Clarity Urine pH Ur Specific Banks Urine Protein Urine Glucose (UA) Urine Ketones Urine Blood Urine Nitrate Urine Bilirubin Urine Urobilinogen Ur Leukocyte Esterase Urine RBC (Auto) Urine Microscopic WBC Ur Squamous Epith Cells Urine Bacteria Hyaline Casts 01/12/18 01/12/18 01/12/18 01:10 03:42 04:00 WBC RBC Hgb Hct MCV MCH MCHC RDW Plt Count MPV Neut % (Auto) Lymph % (Auto) Yates % (Auto) Eos % (Auto) Baso % (Auto) Neut # (Auto) Lymph # (Auto) Yates # (Auto) Eos # (Auto) Baso # (Auto) PT INR APTT pO2 VBG pH VBG pCO2 VBG HCO3 VBG Total CO2 VBG O2 Sat (Calc) VBG Base Excess VBG Potassium Glucose Lactate FiO2 Crit Value Called To Crit Value Called By Crit Value Read Back Blood Gas Notified Time Sodium 139 Potassium 6.3 H* Chloride 114 H Carbon Dioxide 6 L* D Anion Gap 25 H BUN 201 H* Creatinine 5.0 H Est GFR ( Amer) 14 Est GFR (Non-Af Amer) 11 POC Glucose (mg/dL) 168 H 115 H Random Glucose 105 Lactic Acid Calcium 6.1 L Total Bilirubin 0.6 AST 13 L ALT 27 Alkaline Phosphatase 38 D Total Protein 4.9 L Albumin 2.1 L D Globulin 2.8 Albumin/Globulin Ratio 0.8 L Venous Blood Potassium Urine Color Urine Clarity Urine pH Ur Specific Banks Urine Protein Urine Glucose (UA) Urine Ketones Urine Blood Urine Nitrate Urine Bilirubin Urine Urobilinogen Ur Leukocyte Esterase Urine RBC (Auto) Urine Microscopic WBC Ur Squamous Epith Cells Urine Bacteria Hyaline Casts 01/12/18 01/12/18 01/12/18 05:38 08:03 08:25 WBC 0.9 L* D RBC 2.99 L Hgb 9.1 L D Hct 26.7 L MCV 89.6 MCH 30.4 MCHC 34.0 RDW 15.4 H Plt Count 16 L* D MPV 8.9 Neut % (Auto) 68.1 Lymph % (Auto) 29.4 Yates % (Auto) 2.1 Eos % (Auto) 0.3 Baso % (Auto) 0.1 Neut # (Auto) 0.6 L Lymph # (Auto) 0.3 L Yates # (Auto) 0.0 Eos # (Auto) 0.0 Baso # (Auto) 0.0 PT INR APTT pO2 VBG pH VBG pCO2 VBG HCO3 VBG Total CO2 VBG O2 Sat (Calc) VBG Base Excess VBG Potassium Glucose Lactate FiO2 Crit Value Called To Crit Value Called By Crit Value Read Back Blood Gas Notified Time Sodium Potassium Chloride Carbon Dioxide Anion Gap BUN Creatinine Est GFR ( Amer) Est GFR (Non-Af Amer) POC Glucose (mg/dL) 72 111 H Random Glucose Lactic Acid Calcium Total Bilirubin AST ALT Alkaline Phosphatase Total Protein Albumin Globulin Albumin/Globulin Ratio Venous Blood Potassium Urine Color Urine Clarity Urine pH Ur Specific Banks Urine Protein Urine Glucose (UA) Urine Ketones Urine Blood Urine Nitrate Urine Bilirubin Urine Urobilinogen Ur Leukocyte Esterase Urine RBC (Auto) Urine Microscopic WBC Ur Squamous Epith Cells Urine Bacteria Hyaline Casts 01/12/18 01/12/18 01/12/18 08:25 10:00 10:02 WBC RBC Hgb Hct MCV MCH MCHC RDW Plt Count MPV Neut % (Auto) Lymph % (Auto) Yates % (Auto) Eos % (Auto) Baso % (Auto) Neut # (Auto) Lymph # (Auto) Yates # (Auto) Eos # (Auto) Baso # (Auto) PT INR APTT pO2 VBG pH VBG pCO2 VBG HCO3 VBG Total CO2 VBG O2 Sat (Calc) VBG Base Excess VBG Potassium Glucose Lactate FiO2 Crit Value Called To Crit Value Called By Crit Value Read Back Blood Gas Notified Time Sodium 140 Potassium 5.9 H Chloride 112 H Carbon Dioxide 11 L* D Anion Gap 23 H BUN 200 H* Creatinine 5.0 H Est GFR ( Amer) 14 Est GFR (Non-Af Amer) 11 POC Glucose (mg/dL) 134 H Random Glucose 128 H Lactic Acid 1.0 Calcium 5.8 L* Total Bilirubin AST ALT Alkaline Phosphatase Total Protein Albumin Globulin Albumin/Globulin Ratio Venous Blood Potassium Urine Color Urine Clarity Urine pH Ur Specific Banks Urine Protein Urine Glucose (UA) Urine Ketones Urine Blood Urine Nitrate Urine Bilirubin Urine Urobilinogen Ur Leukocyte Esterase Urine RBC (Auto) Urine Microscopic WBC Ur Squamous Epith Cells Urine Bacteria Hyaline Casts 01/12/18 11:20 WBC RBC Hgb Hct MCV MCH MCHC RDW Plt Count MPV Neut % (Auto) Lymph % (Auto) Yates % (Auto) Eos % (Auto) Baso % (Auto) Neut # (Auto) Lymph # (Auto) Yates # (Auto) Eos # (Auto) Baso # (Auto) PT INR APTT pO2 VBG pH VBG pCO2 VBG HCO3 VBG Total CO2 VBG O2 Sat (Calc) VBG Base Excess VBG Potassium Glucose Lactate FiO2 Crit Value Called To Crit Value Called By Crit Value Read Back Blood Gas Notified Time Sodium Potassium Chloride Carbon Dioxide Anion Gap BUN Creatinine Est GFR ( Amer) Est GFR (Non-Af Amer) POC Glucose (mg/dL) 104 Random Glucose Lactic Acid Calcium Total Bilirubin AST ALT Alkaline Phosphatase Total Protein Albumin Globulin Albumin/Globulin Ratio Venous Blood Potassium Urine Color Urine Clarity Urine pH Ur Specific Banks Urine Protein Urine Glucose (UA) Urine Ketones Urine Blood Urine Nitrate Urine Bilirubin Urine Urobilinogen Ur Leukocyte Esterase Urine RBC (Auto) Urine Microscopic WBC Ur Squamous Epith Cells Urine Bacteria Hyaline Casts Assessment & Plan (1) Pancytopenia Assessment and Plan: secondary to MDS moderate neutropenia; will give a dose of Granix recommend transfusion of 1 bag of platelets; goal plt > 20,000 Status: Acute (2) Myelodysplasia (myelodysplastic syndrome) Assessment and Plan: on hypomethylating agent (decitabine) as outpatient growth factor and transfusion support Thank you for this interesting consult. Status: Chronic
[2018-01-12] MEDS ORDERED: Epoetin Alfa 20000 UNIT/ML (RENAL DOSE) SC ONE (12:06)
--- NOTE | 2018-01-12 12:42 | CP.PCM.CON ---
History of Present Illness - History of Present Illness History of Present Illness: Podiatry consult notes for Attending Shreyas Hicks 77 year old male with a PMH of DM, Myelodysplasia, HTN, DKA and pancytopenia seen and evaluated at the bedside in ICU for right hallux tip gangrene and left heel discoloration.Patient was wearing a soft boot in his left lower extremity. Patient is currently receiving Chemotherapy for his myelodysplasia. Patient was sitting in his bed in discomfort. Patient is AAO X 3. Patient was accompanied by his son and his nephew. patient and his relatives states that his toe started to have a small blister about 2 months ago which progressed to color change and became black. they states that it's stable since 1 month when he started the antibiotic course.. They states that he is following up with the wound care nurse at the facility he is staying in. Patient states that it's painful moderate pain when it's touched. They states that 1 month ago his heel started to get discolored and became darker. Patient states that it's mildly painful when it's touched. Patient denies any other pedal complaint. PMH: DM, HTN, Myelodysplasia, DKA and pancytopenia PSH: Foot surgery. Social history: Denies tobacco, alcohol, and illicit drug use. Allergies: NKDA Review of Systems - Review of Systems Review of Systems: As per HPI Past Patient History - Infectious Disease Hx of Infectious Diseases: None - Tetanus Immunizations Tetanus Immunization: Unknown - Past Medical History & Family History Past Medical History?: Yes - Past Social History Alcohol: None Drugs: Denies - CARDIAC Hx Hypercholesterolemia: Yes Hx Hypertension: Yes - PULMONARY Hx Respiratory Disorders: No - NEUROLOGICAL Hx Neurological Disorder: No - HEENT Hx HEENT Problems: No - RENAL Hx Chronic Kidney Disease: Yes Hx Kidney Stones: Yes - ENDOCRINE/METABOLIC Hx Diabetes Mellitus Type 2: Yes - HEMATOLOGICAL/ONCOLOGICAL Hx Anemia: Yes Hx Human Immunodeficiency Virus (HIV): No - INTEGUMENTARY Hx Dermatological Problems: No - MUSCULOSKELETAL/RHEUMATOLOGICAL Hx Musculoskeletal Disorders: Yes Hx Falls: Yes Other/Comment: BONE CA (PER [facility] REPORT) - GASTROINTESTINAL Hx Gastrointestinal Disorders: No - GENITOURINARY/GYNECOLOGICAL Hx Genitourinary Disorders: No - PSYCHIATRIC Hx Depression: Yes - SURGICAL HISTORY Other/Comment: Bunion - ANESTHESIA Hx Anesthesia: Yes Hx Anesthesia Reactions: No Meds Allergies/Adverse Reactions: Allergies Allergy/AdvReac Type Severity Reaction Status Date / Time No Known Allergies Allergy Verified 01/11/18 11:58 - Medications Medications: Current Medications Dextrose (Dextrose 50% Inj) 0 ml IV STAT PRN; Protocol PRN Reason: Hypoglycemia Protocol Dextrose (Glutose 15) 0 gm PO ONCE PRN; Protocol PRN Reason: Hypoglycemia Protocol Ferrous Sulfate (Feosol) 325 mg PO TID [facility] Last Admin: 01/12/18 09:37 Dose: Not Given Gabapentin (Neurontin) 300 mg PO TID [facility] Last Admin: 01/12/18 09:37 Dose: Not Given Glucagon (Glucagen Diagnostic Kit) 0 mg IM STAT PRN; Protocol PRN Reason: Hypoglycemia Protocol Meropenem 500 mg/ Sodium (Chloride) 100 mls @ 100 mls/hr IVPB Q12 [facility] PRN Reason: Protocol Last Admin: 01/12/18 11:25 Dose: 100 mls/hr Dextrose/Sodium Chloride (Dextrose 5%-0.45% Ns 500 Ml) 1,000 mls @ 175 mls/hr IV .Q5H43M [facility] Stop: 01/13/18 08:46 Last Admin: 01/12/18 10:24 Dose: 175 mls/hr Insulin Human Regular 100 (units/ Sodium Chloride) 101 mls @ 3.03 mls/hr IV .Q24H [facility]; 3 UNITS/HR PRN Reason: Protocol Last Titration: 01/12/18 11:24 Dose: 1.5 units/hr, 1.51 mls/hr Ondansetron HCl (Zofran Inj) 4 mg IVP Q6 PRN PRN Reason: Nausea/Vomiting Last Admin: 01/12/18 10:26 Dose: 4 mg Pantoprazole Sodium (Protonix Inj) 40 mg IVP DAILY [facility] Last Admin: 01/12/18 09:38 Dose: 40 mg Physical Exam - Constitutional Appears: Non-toxic - Head Exam Head Exam: ATRAUMATIC, NORMOCEPHALIC - Extremities Exam Additional comments: Lower extremities focused exam: Vasc: DP non palpable b/l, D/P faintly palpable 1/4 b/l. Temp gradient warm to cool. Cap refill delayed about 4 sec. No edema noted b/l. Neuro: Protective sensation diminished, Gross sensation intact. Derm: Right hallux distal 1/4 is black in color and sharply dematked surrounded by a narrow zone of purple discoloration. the discolored area is 2 cm X 1 cm. Left plantar heel discolored with dark dicoloration black and purple but no open lesions. It measures 4 cm X 3 cm. MSK: Muscle power 4/5 in all groups b/l. Diffuse arthritic changes in all major joints of foot and ankle b/l. Pain on palpation of the right hallux and left heel R > L. - Neurological Exam Neurological exam: Alert, Oriented x3 Results - Vital Signs Recent Vital Signs: Last Vital Signs Temp 97.8 F 01/12/18 08:00 Pulse 95 H 01/12/18 12:00 Resp 16 01/12/18 12:00 BP 136/93 H 01/12/18 12:00 Pulse Ox 100 01/12/18 12:00 - Labs Result Diagrams: 01/12/18 08:25 01/12/18 10:00 Labs: Laboratory Results - last 24 hr 01/11/18 01/11/18 01/11/18 12:30 12:30 12:30 WBC 2.5 L RBC 4.20 L Hgb 12.6 D Hct 37.2 MCV 88.6 D MCH 30.0 MCHC 33.8 RDW 15.6 H Plt Count 27 L* MPV 8.9 Neut % (Auto) 86.6 H Lymph % (Auto) 11.7 L Bradley % (Auto) 1.5 Eos % (Auto) 0.1 Baso % (Auto) 0.1 Neut # (Auto) 2.2 Lymph # (Auto) 0.3 L Bradley # (Auto) 0.0 Eos # (Auto) 0.0 Baso # (Auto) 0.0 PT INR APTT pO2 VBG pH VBG pCO2 VBG HCO3 VBG Total CO2 VBG O2 Sat (Calc) VBG Base Excess VBG Potassium Glucose Lactate FiO2 Crit Value Called To Crit Value Called By Crit Value Read Back Blood Gas Notified Time Sodium 131 L Potassium 6.8 H* D Chloride 99 Carbon Dioxide 10 L* D Anion Gap 29 H BUN 203 H* D Creatinine 5.5 H Est GFR ( Amer) 12 Est GFR (Non-Af Amer) 10 POC Glucose (mg/dL) Random Glucose 463 H* D Lactic Acid Calcium 6.9 L Total Bilirubin 0.5 AST 16 L ALT 31 Alkaline Phosphatase 73 Total Protein 6.2 L Albumin 3.0 L Globulin 3.1 Albumin/Globulin Ratio 1.0 Venous Blood Potassium Urine Color Yellow Urine Clarity Cloudy Urine pH 5.0 Ur Specific Bath 1.018 Urine Protein 100 Urine Glucose (UA) 50 Urine Ketones Negative Urine Blood Large Urine Nitrate Negative Urine Bilirubin Negative Urine Urobilinogen 0.2-1.0 Ur Leukocyte Esterase Trace Urine RBC (Auto) 168 H Urine Microscopic WBC 11 H Ur Squamous Epith Cells 2 Urine Bacteria Rare Hyaline Casts 6-10 H 01/11/18 01/11/18 01/11/18 13:37 14:00 17:32 WBC RBC Hgb Hct MCV MCH MCHC RDW Plt Count MPV Neut % (Auto) Lymph % (Auto) Bradley % (Auto) Eos % (Auto) Baso % (Auto) Neut # (Auto) Lymph # (Auto) Bradley # (Auto) Eos # (Auto) Baso # (Auto) PT 12.5 INR 1.1 APTT 33.6 pO2 15 L VBG pH 7.11 L* VBG pCO2 40 VBG HCO3 9.9 VBG Total CO2 13.9 L VBG O2 Sat (Calc) 29.5 L VBG Base Excess -16.2 L VBG Potassium 6.5 H* Glucose 417 H* D Lactate 2.9 H FiO2 21.0 Crit Value Called To Dr barnard Crit Value Called By Rt Crit Value Read Back Y Blood Gas Notified Time 1428 Sodium 129.0 L Potassium Chloride 101.0 Carbon Dioxide Anion Gap BUN Creatinine Est GFR ( Amer) Est GFR (Non-Af Amer) POC Glucose (mg/dL) 293 H Random Glucose Lactic Acid Calcium Total Bilirubin AST ALT Alkaline Phosphatase Total Protein Albumin Globulin Albumin/Globulin Ratio Venous Blood Potassium 6.5 H* Urine Color Urine Clarity Urine pH Ur Specific Bath Urine Protein Urine Glucose (UA) Urine Ketones Urine Blood Urine Nitrate Urine Bilirubin Urine Urobilinogen Ur Leukocyte Esterase Urine RBC (Auto) Urine Microscopic WBC Ur Squamous Epith Cells Urine Bacteria Hyaline Casts 01/11/18 01/11/18 01/12/18 21:36 23:01 01:05 WBC RBC Hgb Hct MCV MCH MCHC RDW Plt Count MPV Neut % (Auto) Lymph % (Auto) Bradley % (Auto) Eos % (Auto) Baso % (Auto) Neut # (Auto) Lymph # (Auto) Bradley # (Auto) Eos # (Auto) Baso # (Auto) PT INR APTT pO2 VBG pH VBG pCO2 VBG HCO3 VBG Total CO2 VBG O2 Sat (Calc) VBG Base Excess VBG Potassium Glucose Lactate FiO2 Crit Value Called To Crit Value Called By Crit Value Read Back Blood Gas Notified Time Sodium 140 Potassium 5.4 H Chloride 112 H Carbon Dioxide 9 L* Anion Gap 24 H BUN 194 H* Creatinine 5.0 H Est GFR ( Amer) 14 Est GFR (Non-Af Amer) 11 POC Glucose (mg/dL) 187 H 191 H Random Glucose 150 H Lactic Acid Calcium 6.0 L* Total Bilirubin AST ALT Alkaline Phosphatase Total Protein Albumin Globulin Albumin/Globulin Ratio Venous Blood Potassium Urine Color Urine Clarity Urine pH Ur Specific Bath Urine Protein Urine Glucose (UA) Urine Ketones Urine Blood Urine Nitrate Urine Bilirubin Urine Urobilinogen Ur Leukocyte Esterase Urine RBC (Auto) Urine Microscopic WBC Ur Squamous Epith Cells Urine Bacteria Hyaline Casts 01/12/18 01/12/18 01/12/18 01:10 03:42 04:00 WBC RBC Hgb Hct MCV MCH MCHC RDW Plt Count MPV Neut % (Auto) Lymph % (Auto) Bradley % (Auto) Eos % (Auto) Baso % (Auto) Neut # (Auto) Lymph # (Auto) Bradley # (Auto) Eos # (Auto) Baso # (Auto) PT INR APTT pO2 VBG pH VBG pCO2 VBG HCO3 VBG Total CO2 VBG O2 Sat (Calc) VBG Base Excess VBG Potassium Glucose Lactate FiO2 Crit Value Called To Crit Value Called By Crit Value Read Back Blood Gas Notified Time Sodium 139 Potassium 6.3 H* Chloride 114 H Carbon Dioxide 6 L* D Anion Gap 25 H BUN 201 H* Creatinine 5.0 H Est GFR ( Amer) 14 Est GFR (Non-Af Amer) 11 POC Glucose (mg/dL) 168 H 115 H Random Glucose 105 Lactic Acid Calcium 6.1 L Total Bilirubin 0.6 AST 13 L ALT 27 Alkaline Phosphatase 38 D Total Protein 4.9 L Albumin 2.1 L D Globulin 2.8 Albumin/Globulin Ratio 0.8 L Venous Blood Potassium Urine Color Urine Clarity Urine pH Ur Specific Bath Urine Protein Urine Glucose (UA) Urine Ketones Urine Blood Urine Nitrate Urine Bilirubin Urine Urobilinogen Ur Leukocyte Esterase Urine RBC (Auto) Urine Microscopic WBC Ur Squamous Epith Cells Urine Bacteria Hyaline Casts 01/12/18 01/12/18 01/12/18 05:38 08:03 08:25 WBC 0.9 L* D RBC 2.99 L Hgb 9.1 L D Hct 26.7 L MCV 89.6 MCH 30.4 MCHC 34.0 RDW 15.4 H Plt Count 16 L* D MPV 8.9 Neut % (Auto) 68.1 Lymph % (Auto) 29.4 Bradley % (Auto) 2.1 Eos % (Auto) 0.3 Baso % (Auto) 0.1 Neut # (Auto) 0.6 L Lymph # (Auto) 0.3 L Bradley # (Auto) 0.0 Eos # (Auto) 0.0 Baso # (Auto) 0.0 PT INR APTT pO2 VBG pH VBG pCO2 VBG HCO3 VBG Total CO2 VBG O2 Sat (Calc) VBG Base Excess VBG Potassium Glucose Lactate FiO2 Crit Value Called To Crit Value Called By Crit Value Read Back Blood Gas Notified Time Sodium Potassium Chloride Carbon Dioxide Anion Gap BUN Creatinine Est GFR ( Amer) Est GFR (Non-Af Amer) POC Glucose (mg/dL) 72 111 H Random Glucose Lactic Acid Calcium Total Bilirubin AST ALT Alkaline Phosphatase Total Protein Albumin Globulin Albumin/Globulin Ratio Venous Blood Potassium Urine Color Urine Clarity Urine pH Ur Specific Bath Urine Protein Urine Glucose (UA) Urine Ketones Urine Blood Urine Nitrate Urine Bilirubin Urine Urobilinogen Ur Leukocyte Esterase Urine RBC (Auto) Urine Microscopic WBC Ur Squamous Epith Cells Urine Bacteria Hyaline Casts 01/12/18 01/12/18 01/12/18 08:25 10:00 10:02 WBC RBC Hgb Hct MCV MCH MCHC RDW Plt Count MPV Neut % (Auto) Lymph % (Auto) Bradley % (Auto) Eos % (Auto) Baso % (Auto) Neut # (Auto) Lymph # (Auto) Bradley # (Auto) Eos # (Auto) Baso # (Auto) PT INR APTT pO2 VBG pH VBG pCO2 VBG HCO3 VBG Total CO2 VBG O2 Sat (Calc) VBG Base Excess VBG Potassium Glucose Lactate FiO2 Crit Value Called To Crit Value Called By Crit Value Read Back Blood Gas Notified Time Sodium 140 Potassium 5.9 H Chloride 112 H Carbon Dioxide 11 L* D Anion Gap 23 H BUN 200 H* Creatinine 5.0 H Est GFR ( Amer) 14 Est GFR (Non-Af Amer) 11 POC Glucose (mg/dL) 134 H Random Glucose 128 H Lactic Acid 1.0 Calcium 5.8 L* Total Bilirubin AST ALT Alkaline Phosphatase Total Protein Albumin Globulin Albumin/Globulin Ratio Venous Blood Potassium Urine Color Urine Clarity Urine pH Ur Specific Bath Urine Protein Urine Glucose (UA) Urine Ketones Urine Blood Urine Nitrate Urine Bilirubin Urine Urobilinogen Ur Leukocyte Esterase Urine RBC (Auto) Urine Microscopic WBC Ur Squamous Epith Cells Urine Bacteria Hyaline Casts 01/12/18 01/12/18 11:20 12:14 WBC RBC Hgb Hct MCV MCH MCHC RDW Plt Count MPV Neut % (Auto) Lymph % (Auto) Bradley % (Auto) Eos % (Auto) Baso % (Auto) Neut # (Auto) Lymph # (Auto) Bradley # (Auto) Eos # (Auto) Baso # (Auto) PT INR APTT pO2 VBG pH VBG pCO2 VBG HCO3 VBG Total CO2 VBG O2 Sat (Calc) VBG Base Excess VBG Potassium Glucose Lactate FiO2 Crit Value Called To Crit Value Called By Crit Value Read Back Blood Gas Notified Time Sodium Potassium Chloride Carbon Dioxide Anion Gap BUN Creatinine Est GFR ( Amer) Est GFR (Non-Af Amer) POC Glucose (mg/dL) 104 92 Random Glucose Lactic Acid Calcium Total Bilirubin AST ALT Alkaline Phosphatase Total Protein Albumin Globulin Albumin/Globulin Ratio Venous Blood Potassium Urine Color Urine Clarity Urine pH Ur Specific Bath Urine Protein Urine Glucose (UA) Urine Ketones Urine Blood Urine Nitrate Urine Bilirubin Urine Urobilinogen Ur Leukocyte Esterase Urine RBC (Auto) Urine Microscopic WBC Ur Squamous Epith Cells Urine Bacteria Hyaline Casts Assessment & Plan - Assessment and Plan (Free Text) Assessment: 77 y/o M patient seen and evaluated at the bed side at the ICU for right hallux dry gangrene and left heel deep tissue injury. Plan: Patient seen and evaluated at the bedside in ICU. plan discussed in details with attending Shreyas Hicks. Chart, Vitals and labs reviewed; Leukopenic (0.9), Afebrile. B/l X-ray ordered X-ray reviewed and showed B/L diffuse arthritic changes and No evidence of osteomyelitis. Vascular consultation for Jarrod Hicks ordered. Patient right hallux dressed using 4 X 4 sterile Gauze and kurlix. Left heel dressed using ABD 4 X 4 sterile Gauze and kurlix. Patient instructed to keep using the soft boot for left LE while he is in bed. Patient to be followed up in house by the podiatry team. - Date & Time Date: 01/12/18 Time: 15:06
--- NOTE | 2018-01-12 13:11 | CP.PCM.PN ---
Subjective - Date & Time of Evaluation Date of Evaluation: 01/12/18 Time of Evaluation: 08:30 - Subjective Subjective: 77 Y/O M seen at bedside. Awake, alert. In mild distress. Patient tries to speak but unable to verbalize due to absence of denture. Pt afebrile with NO acute events overnight. Objective - Vital Signs/Intake and Output Vital Signs (last 24 hours): Temp Pulse Resp BP Pulse Ox 97.8 F 93 H 17 136/93 H 100 01/12/18 12:00 01/12/18 12:00 01/12/18 12:00 01/12/18 12:00 01/12/18 12:00 Intake and Output: 01/12/18 01/12/18 06:59 18:59 Intake Total 1525 1626 Output Total 90 Balance 1435 1626 - Medications Medications: Current Medications Dextrose (Dextrose 50% Inj) 0 ml IV STAT PRN; Protocol PRN Reason: Hypoglycemia Protocol Dextrose (Glutose 15) 0 gm PO ONCE PRN; Protocol PRN Reason: Hypoglycemia Protocol Ferrous Sulfate (Feosol) 325 mg PO TID [facility] Last Admin: 01/12/18 09:37 Dose: Not Given Gabapentin (Neurontin) 300 mg PO TID [facility] Last Admin: 01/12/18 09:37 Dose: Not Given Glucagon (Glucagen Diagnostic Kit) 0 mg IM STAT PRN; Protocol PRN Reason: Hypoglycemia Protocol Meropenem 500 mg/ Sodium (Chloride) 100 mls @ 100 mls/hr IVPB Q12 [facility] PRN Reason: Protocol Last Admin: 01/12/18 11:25 Dose: 100 mls/hr Dextrose/Sodium Chloride (Dextrose 5%-0.45% Ns 500 Ml) 1,000 mls @ 175 mls/hr IV .Q5H43M [facility] Stop: 01/13/18 08:46 Last Admin: 01/12/18 10:24 Dose: 175 mls/hr Insulin Human Regular 100 (units/ Sodium Chloride) 101 mls @ 3.03 mls/hr IV .Q24H [facility]; 3 UNITS/HR PRN Reason: Protocol Last Titration: 01/12/18 11:24 Dose: 1.5 units/hr, 1.51 mls/hr Ondansetron HCl (Zofran Inj) 4 mg IVP Q6 PRN PRN Reason: Nausea/Vomiting Last Admin: 01/12/18 10:26 Dose: 4 mg Pantoprazole Sodium (Protonix Inj) 40 mg IVP DAILY [facility] Last Admin: 01/12/18 09:38 Dose: 40 mg - Labs Labs: 01/12/18 08:25 01/12/18 10:00 PT 12.5 Seconds (9.8-13.1) 01/11/18 13:37 INR 1.1 (0.9-1.2) 01/11/18 13:37 APTT 33.6 Seconds (25.6-37.1) 01/11/18 13:37 - Constitutional Appears: In Acute Distress, Confused - Head Exam Head Exam: ATRAUMATIC, NORMAL INSPECTION, NORMOCEPHALIC - Eye Exam Eye Exam: EOMI, Normal appearance, PERRL Pupil Exam: NORMAL ACCOMODATION, PERRL - ENT Exam ENT Exam: Mucous Membranes Moist Additional comments: Scrapable Brownish/black discoloration of tounge and teeth. - Respiratory Exam Respiratory Exam: Clear to Ausculation Bilateral, NORMAL BREATHING PATTERN. absent: Rales, Rhonchi, Wheezes, Respiratory Distress - Cardiovascular Exam Cardiovascular Exam: REGULAR RHYTHM, +S1, +S2 - GI/Abdominal Exam GI & Abdominal Exam: Guarding, Rigid, Tenderness, Normal Bowel Sounds. absent: Distended, Organomegaly, Pulsatile Mass, Rebound - Rectal Exam Rectal Exam: Deferred - Extremities Exam Additional comments: Discoloration(Black) of 1st great toe of right foot, Pale, cold surrounding area , Diminished Dorsales pedis and posterior tibial pulse. Negative tenderness, erythema. - Hyperpigmentation of B/L LE - Back Exam Back Exam: absent: CVA tenderness (L), CVA tenderness (R) - Neurological Exam Neurological Exam: Alert, Awake. absent: Motor Sensory Deficit Additional comments: Oriented to place, person - Psychiatric Exam Psychiatric exam: Normal Mood. 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 -Check sugar levels Q2H -Hypoglycemia protocol -Monitor Bicarbonate/anion gap/potassium/glucose Sepsis -Temp improved: 97.7(previous 95.7) -WBC 0.9, Worsening. -CT abdomen/pelvis: Mac colitis, possible cystitis and b/l lower pneumonia. -ID on consult, Dr Bright -Meropenem day 2 -Monitor CBC, CMP MECHELLE - Stage 4 - Worsening Renal function vs Acute on CKD - IV fluids - F/U BMP - Seen by Nephro: D5 1/2 NS @175 ml/hr. Considering possible dialysis. Pancytopenia - Chronic, Uncontrolled - moderate neutropenia - As per Telecommunications Analyst Dr Pace: will give a dose of Granix and procrit, recommend transfusion of 1 bag of platelets; goal plt > 20,000 - On Iron supplement - start stool softener, and lactulose for constipation Myelodysplasia (myelodysplastic syndrome) - Seen by Dr. Pace - on hypomethylating agent (decitabine) as outpatient - growth factor and transfusion support Right big toe necrosis - F/U wound care by Podiatry and vascular surgery - ID on consult, Dr Bright - Meropenem day 2 - Vanco D/Andrey. HTN - Controlled - Continue home med External Hemorrhoids - Avoid constipation - no active bleeding or thrombosed Prophylaxis - NO anticoagulant for DVT prophylaxis due to thrombocytopenia - platelets on admission 30 - SCDs
--- NOTE | 2018-01-12 13:27 | CP.CCUPN ---
<Jake Brown - Last Filed: 01/12/18 15:35> CCU Subjective - Physician Review Subjective (Free Text): 01/12/18 13:24 ICU Progress Note 77 y/o M evaluated and examined by bedside. Pt is awake and alert, able to have a conversation in Nepali. Pt reports feeling better, still thirsty. Pt c/o R toe pain and L heel pain. Pt afebrile with NO acute events overnight. CCU Objective - Vital Signs / Intake & Output Vital Signs (Last 4 hours): Vital Signs Temp Pulse Resp BP Pulse Ox 01/12/18 12:00 97.8 F 93 H 17 136/93 H 100 01/12/18 10:00 91 H 136/62 Intake and Output (Last 8hrs): Intake & Output 01/11/18 01/12/18 01/12/18 22:59 06:59 14:59 Intake Total 2100 425 1626 Output Total 60 30 Balance 2040 395 1626 Weight 49.895 kg Intake: IV 2000 375 1626 Intake, Piggyback 100 50 Oral 0 Output: Stool 0 0 Emesis 60 30 Other: # Bowel Movements 0 1 - Physical Exam Head: Positive for: Atraumatic, Normocephalic Extroacular Muscles: Positive for: EOMI Mouth: Positive for: Dry Nose (Internal): Positive for: Normal Inspection Neck: Positive for: Normal Range of Motion Respiratory/Chest: Positive for: Good Air Exchange Cardiovascular: Positive for: Regular Rate and Rhythm Abdomen: Negative for: Tenderness, Distention Upper Extremity: Positive for: Normal Inspection Lower Extremity: Positive for: Normal Inspection Neurological: Positive for: Speech Normal Psychiatric: Positive for: Alert, Oriented x 3 - Medications Active Medications: Active Medications Generic Name Dose Route Start Last Admin Trade Name Freq PRN Reason Stop Dose Admin Dextrose 0 ml 01/11/18 14:32 Dextrose 50% Inj IV STAT PRN Hypoglycemia Protocol Protocol Dextrose 0 gm 01/11/18 14:32 Glutose 15 PO ONCE PRN Hypoglycemia Protocol Protocol Ferrous Sulfate 325 mg 01/12/18 09:00 01/12/18 09:37 Feosol PO Not Given TID CAMILLE Gabapentin 300 mg 01/12/18 09:00 01/12/18 09:37 Neurontin PO Not Given TID CAM[place]LE Glucagon 0 mg 01/11/18 14:32 Glucagen Diagnostic Kit IM STAT PRN Hypoglycemia Protocol Protocol Meropenem 500 mg/ Sodium 100 mls @ 100 mls/hr 01/11/18 17:30 01/12/18 11:25 Chloride IVPB 100 mls/hr Q12 [place] Administration Protocol Dextrose/Sodium Chloride 1,000 mls @ 175 mls/hr 01/12/18 08:45 01/12/18 10:24 Dextrose 5%-0.45% Ns 500 Ml IV 01/13/18 08:46 175 mls/hr .[id number] CAM[place] Administration Insulin Human Regular 100 101 mls @ 3.03 mls/hr 01/12/18 09:01 01/12/18 11:24 units/ Sodium Chloride IV 1.5 units/hr .Q24H [place] 1.51 mls/hr Protocol Titration 3 UNITS/HR Ondansetron HCl 4 mg 01/12/18 09:52 01/12/18 10:26 Zofran Inj IVP 4 mg Q6 PRN Administration Nausea/Vomiting Pantoprazole Sodium 40 mg 01/12/18 09:00 01/12/18 09:38 Protonix Inj IVP 40 mg DAILY CAMILLE Administration - Patient Studies Lab Studies: Microbiology Studies 01/11/18 12:30 Urine Culture - Final Urine No Growth (<1,000 CFU/ML) Lab Studies 01/12/18 01/12/18 01/12/18 Range/Units 13:02 12:14 11:20 WBC (4.8-10.8) K/uL RBC (4.40-5.90) Mil/uL Hgb (12.0-18.0) g/dL Hct (35.0-51.0) % MCV (80.0-94.0) fl MCH (27.0-31.0) pg MCHC (33.0-37.0) g/dL RDW (11.5-14.5) % Plt Count (130-400) K/uL MPV (7.2-11.7) fl Neut % (Auto) (50.0-75.0) % Lymph % (Auto) (20.0-40.0) % [place] % (Auto) (0.0-10.0) % Eos % (Auto) (0.0-4.0) % Baso % (Auto) (0.0-2.0) % Neut # (Auto) (1.8-7.0) K/uL Lymph # (Auto) (1.0-4.3) K/uL [place] # (Auto) (0.0-0.8) K/uL Eos # (Auto) (0.0-0.7) K/uL Baso # (Auto) (0.0-0.2) K/uL PT (9.8-13.1) Seconds INR (0.9-1.2) APTT (25.6-37.1) Seconds pO2 (30-55) mm/Hg VBG pH (7.32-7.43) VBG pCO2 (40-60) mmHg VBG HCO3 mmol/L VBG Total CO2 (22-28) mmol/L VBG O2 Sat (Calc) (40-65) % VBG Base Excess (0.0-2.0) mmol/L VBG Potassium (3.6-5.2) mmol/L Sodium (132-148) mmol/L Chloride (98-107) mmol/L Glucose (75-110) mg/dL Lactate (0.7-2.1) mmol/L FiO2 % Crit Value Called To Crit Value Called By Crit Value Read Back Blood Gas Notified Time Potassium (3.6-5.0) MMOL/L Carbon Dioxide (22-30) mmol/L Anion Gap (10-20) BUN (9-20) mg/dl Creatinine (0.8-1.5) mg/dl Est GFR ( Amer) Est GFR (Non-Af Amer) POC Glucose (mg/dL) 90 92 104 (65-110) mg/dL Random Glucose (75-110) mg/dL Lactic Acid (0.7-2.1) MMOL/L Calcium (8.4-10.2) mg/dL Total Bilirubin (0.2-1.3) mg/dl AST (17-59) U/L ALT (21-72) U/L Alkaline Phosphatase (38-126) U/L Total Protein (6.3-8.2) G/DL Albumin (3.5-5.0) g/dL Globulin (2.2-3.9) gm/dL Albumin/Globulin Ratio (1.0-2.1) Venous Blood Potassium (3.6-5.2) mmol/L 01/12/18 01/12/18 01/12/18 Range/Units 10:02 10:00 08:25 WBC (4.8-10.8) K/uL RBC (4.40-5.90) Mil/uL Hgb (12.0-18.0) g/dL Hct (35.0-51.0) % MCV (80.0-94.0) fl MCH (27.0-31.0) pg MCHC (33.0-37.0) g/dL RDW (11.5-14.5) % Plt Count (130-400) K/uL MPV (7.2-11.7) fl Neut % (Auto) (50.0-75.0) % Lymph % (Auto) (20.0-40.0) % [place] % (Auto) (0.0-10.0) % Eos % (Auto) (0.0-4.0) % Baso % (Auto) (0.0-2.0) % Neut # (Auto) (1.8-7.0) K/uL Lymph # (Auto) (1.0-4.3) K/uL [place] # (Auto) (0.0-0.8) K/uL Eos # (Auto) (0.0-0.7) K/uL Baso # (Auto) (0.0-0.2) K/uL PT (9.8-13.1) Seconds INR (0.9-1.2) APTT (25.6-37.1) Seconds pO2 (30-55) mm/Hg VBG pH (7.32-7.43) VBG pCO2 (40-60) mmHg VBG HCO3 mmol/L VBG Total CO2 (22-28) mmol/L VBG O2 Sat (Calc) (40-65) % VBG Base Excess (0.0-2.0) mmol/L VBG Potassium (3.6-5.2) mmol/L Sodium 140 (132-148) mmol/L Chloride 112 H (98-107) mmol/L Glucose (75-110) mg/dL Lactate (0.7-2.1) mmol/L FiO2 % Crit Value Called To Crit Value Called By Crit Value Read Back Blood Gas Notified Time Potassium 5.9 H (3.6-5.0) MMOL/L Carbon Dioxide 11 L* D (22-30) mmol/L Anion Gap 23 H (10-20) BUN 200 H* (9-20) mg/dl Creatinine 5.0 H (0.8-1.5) mg/dl Est GFR ( Amer) 14 Est GFR (Non-Af Amer) 11 POC Glucose (mg/dL) 134 H (65-110) mg/dL Random Glucose 128 H (75-110) mg/dL Lactic Acid 1.0 (0.7-2.1) MMOL/L Calcium 5.8 L* (8.4-10.2) mg/dL Total Bilirubin (0.2-1.3) mg/dl AST (17-59) U/L ALT (21-72) U/L Alkaline Phosphatase (38-126) U/L Total Protein (6.3-8.2) G/DL Albumin (3.5-5.0) g/dL Globulin (2.2-3.9) gm/dL Albumin/Globulin Ratio (1.0-2.1) Venous Blood Potassium (3.6-5.2) mmol/L 01/12/18 01/12/18 01/12/18 Range/Units 08:25 08:03 05:38 WBC 0.9 L* D (4.8-10.8) K/uL RBC 2.99 L (4.40-5.90) Mil/uL Hgb 9.1 L D (12.0-18.0) g/dL Hct 26.7 L (35.0-51.0) % MCV 89.6 (80.0-94.0) fl MCH 30.4 (27.0-31.0) pg MCHC 34.0 (33.0-37.0) g/dL RDW 15.4 H (11.5-14.5) % Plt Count 16 L* D (130-400) K/uL MPV 8.9 (7.2-11.7) fl Neut % (Auto) 68.1 (50.0-75.0) % Lymph % (Auto) 29.4 (20.0-40.0) % [place] % (Auto) 2.1 (0.0-10.0) % Eos % (Auto) 0.3 (0.0-4.0) % Baso % (Auto) 0.1 (0.0-2.0) % Neut # (Auto) 0.6 L (1.8-7.0) K/uL Lymph # (Auto) 0.3 L (1.0-4.3) K/uL [place] # (Auto) 0.0 (0.0-0.8) K/uL Eos # (Auto) 0.0 (0.0-0.7) K/uL Baso # (Auto) 0.0 (0.0-0.2) K/uL PT (9.8-13.1) Seconds INR (0.9-1.2) APTT (25.6-37.1) Seconds pO2 (30-55) mm/Hg VBG pH (7.32-7.43) VBG pCO2 (40-60) mmHg VBG HCO3 mmol/L VBG Total CO2 (22-28) mmol/L VBG O2 Sat (Calc) (40-65) % VBG Base Excess (0.0-2.0) mmol/L VBG Potassium (3.6-5.2) mmol/L Sodium (132-148) mmol/L Chloride (98-107) mmol/L Glucose (75-110) mg/dL Lactate (0.7-2.1) mmol/L FiO2 % Crit Value Called To Crit Value Called By Crit Value Read Back Blood Gas Notified Time Potassium (3.6-5.0) MMOL/L Carbon Dioxide (22-30) mmol/L Anion Gap (10-20) BUN (9-20) mg/dl Creatinine (0.8-1.5) mg/dl Est GFR ( Amer) Est GFR (Non-Af Amer) POC Glucose (mg/dL) 111 H 72 (65-110) mg/dL Random Glucose (75-110) mg/dL Lactic Acid (0.7-2.1) MMOL/L Calcium (8.4-10.2) mg/dL Total Bilirubin (0.2-1.3) mg/dl AST (17-59) U/L ALT (21-72) U/L Alkaline Phosphatase (38-126) U/L Total Protein (6.3-8.2) G/DL Albumin (3.5-5.0) g/dL Globulin (2.2-3.9) gm/dL Albumin/Globulin Ratio (1.0-2.1) Venous Blood Potassium (3.6-5.2) mmol/L 01/12/18 01/12/18 01/12/18 Range/Units 04:00 03:42 01:10 WBC (4.8-10.8) K/uL RBC (4.40-5.90) Mil/uL Hgb (12.0-18.0) g/dL Hct (35.0-51.0) % MCV (80.0-94.0) fl MCH (27.0-31.0) pg MCHC (33.0-37.0) g/dL RDW (11.5-14.5) % Plt Count (130-400) K/uL MPV (7.2-11.7) fl Neut % (Auto) (50.0-75.0) % Lymph % (Auto) (20.0-40.0) % [place] % (Auto) (0.0-10.0) % Eos % (Auto) (0.0-4.0) % Baso % (Auto) (0.0-2.0) % Neut # (Auto) (1.8-7.0) K/uL Lymph # (Auto) (1.0-4.3) K/uL [place] # (Auto) (0.0-0.8) K/uL Eos # (Auto) (0.0-0.7) K/uL Baso # (Auto) (0.0-0.2) K/uL PT (9.8-13.1) Seconds INR (0.9-1.2) APTT (25.6-37.1) Seconds pO2 (30-55) mm/Hg VBG pH (7.32-7.43) VBG pCO2 (40-60) mmHg VBG HCO3 mmol/L VBG Total CO2 (22-28) mmol/L VBG O2 Sat (Calc) (40-65) % VBG Base Excess (0.0-2.0) mmol/L VBG Potassium (3.6-5.2) mmol/L Sodium 139 (132-148) mmol/L Chloride 114 H (98-107) mmol/L Glucose (75-110) mg/dL Lactate (0.7-2.1) mmol/L FiO2 % Crit Value Called To Crit Value Called By Crit Value Read Back Blood Gas Notified Time Potassium 6.3 H* (3.6-5.0) MMOL/L Carbon Dioxide 6 L* D (22-30) mmol/L Anion Gap 25 H (10-20) BUN 201 H* (9-20) mg/dl Creatinine 5.0 H (0.8-1.5) mg/dl Est GFR ( Amer) 14 Est GFR (Non-Af Amer) 11 POC Glucose (mg/dL) 115 H 168 H (65-110) mg/dL Random Glucose 105 (75-110) mg/dL Lactic Acid (0.7-2.1) MMOL/L Calcium 6.1 L (8.4-10.2) mg/dL Total Bilirubin 0.6 (0.2-1.3) mg/dl AST 13 L (17-59) U/L ALT 27 (21-72) U/L Alkaline Phosphatase 38 D (38-126) U/L Total Protein 4.9 L (6.3-8.2) G/DL Albumin 2.1 L D (3.5-5.0) g/dL Globulin 2.8 (2.2-3.9) gm/dL Albumin/Globulin Ratio 0.8 L (1.0-2.1) Venous Blood Potassium (3.6-5.2) mmol/L 01/12/18 01/11/18 01/11/18 Range/Units 01:05 23:01 21:36 WBC (4.8-10.8) K/uL RBC (4.40-5.90) Mil/uL Hgb (12.0-18.0) g/dL Hct (35.0-51.0) % MCV (80.0-94.0) fl MCH (27.0-31.0) pg MCHC (33.0-37.0) g/dL RDW (11.5-14.5) % Plt Count (130-400) K/uL MPV (7.2-11.7) fl Neut % (Auto) (50.0-75.0) % Lymph % (Auto) (20.0-40.0) % [place] % (Auto) (0.0-10.0) % Eos % (Auto) (0.0-4.0) % Baso % (Auto) (0.0-2.0) % Neut # (Auto) (1.8-7.0) K/uL Lymph # (Auto) (1.0-4.3) K/uL [place] # (Auto) (0.0-0.8) K/uL Eos # (Auto) (0.0-0.7) K/uL Baso # (Auto) (0.0-0.2) K/uL PT (9.8-13.1) Seconds INR (0.9-1.2) APTT (25.6-37.1) Seconds pO2 (30-55) mm/Hg VBG pH (7.32-7.43) VBG pCO2 (40-60) mmHg VBG HCO3 mmol/L VBG Total CO2 (22-28) mmol/L VBG O2 Sat (Calc) (40-65) % VBG Base Excess (0.0-2.0) mmol/L VBG Potassium (3.6-5.2) mmol/L Sodium 140 (132-148) mmol/L Chloride 112 H (98-107) mmol/L Glucose (75-110) mg/dL Lactate (0.7-2.1) mmol/L FiO2 % Crit Value Called To Crit Value Called By Crit Value Read Back Blood Gas Notified Time Potassium 5.4 H (3.6-5.0) MMOL/L Carbon Dioxide 9 L* (22-30) mmol/L Anion Gap 24 H (10-20) BUN 194 H* (9-20) mg/dl Creatinine 5.0 H (0.8-1.5) mg/dl Est GFR ( Amer) 14 Est GFR (Non-Af Amer) 11 POC Glucose (mg/dL) 191 H 187 H (65-110) mg/dL Random Glucose 150 H (75-110) mg/dL Lactic Acid (0.7-2.1) MMOL/L Calcium 6.0 L* (8.4-10.2) mg/dL Total Bilirubin (0.2-1.3) mg/dl AST (17-59) U/L ALT (21-72) U/L Alkaline Phosphatase (38-126) U/L Total Protein (6.3-8.2) G/DL Albumin (3.5-5.0) g/dL Globulin (2.2-3.9) gm/dL Albumin/Globulin Ratio (1.0-2.1) Venous Blood Potassium (3.6-5.2) mmol/L 01/11/18 01/11/18 01/11/18 Range/Units 17:32 14:00 13:37 WBC (4.8-10.8) K/uL RBC (4.40-5.90) Mil/uL Hgb (12.0-18.0) g/dL Hct (35.0-51.0) % MCV (80.0-94.0) fl MCH (27.0-31.0) pg MCHC (33.0-37.0) g/dL RDW (11.5-14.5) % Plt Count (130-400) K/uL MPV (7.2-11.7) fl Neut % (Auto) (50.0-75.0) % Lymph % (Auto) (20.0-40.0) % [place] % (Auto) (0.0-10.0) % Eos % (Auto) (0.0-4.0) % Baso % (Auto) (0.0-2.0) % Neut # (Auto) (1.8-7.0) K/uL Lymph # (Auto) (1.0-4.3) K/uL [place] # (Auto) (0.0-0.8) K/uL Eos # (Auto) (0.0-0.7) K/uL Baso # (Auto) (0.0-0.2) K/uL PT 12.5 (9.8-13.1) Seconds INR 1.1 (0.9-1.2) APTT 33.6 (25.6-37.1) Seconds pO2 15 L (30-55) mm/Hg VBG pH 7.11 L* (7.32-7.43) VBG pCO2 40 (40-60) mmHg VBG HCO3 9.9 mmol/L VBG Total CO2 13.9 L (22-28) mmol/L VBG O2 Sat (Calc) 29.5 L (40-65) % VBG Base Excess -16.2 L (0.0-2.0) mmol/L VBG Potassium 6.5 H* (3.6-5.2) mmol/L Sodium 129.0 L (132-148) mmol/L Chloride 101.0 (98-107) mmol/L Glucose 417 H* D (75-110) mg/dL Lactate 2.9 H (0.7-2.1) mmol/L FiO2 21.0 % Crit Value Called To Dr barnard Crit Value Called By Rt Crit Value Read Back Y Blood Gas Notified Time 1428 Potassium (3.6-5.0) MMOL/L Carbon Dioxide (22-30) mmol/L Anion Gap (10-20) BUN (9-20) mg/dl Creatinine (0.8-1.5) mg/dl Est GFR ( Amer) Est GFR (Non-Af Amer) POC Glucose (mg/dL) 293 H (65-110) mg/dL Random Glucose (75-110) mg/dL Lactic Acid (0.7-2.1) MMOL/L Calcium (8.4-10.2) mg/dL Total Bilirubin (0.2-1.3) mg/dl AST (17-59) U/L ALT (21-72) U/L Alkaline Phosphatase (38-126) U/L Total Protein (6.3-8.2) G/DL Albumin (3.5-5.0) g/dL Globulin (2.2-3.9) gm/dL Albumin/Globulin Ratio (1.0-2.1) Venous Blood Potassium 6.5 H* (3.6-5.2) mmol/L Laboratory Results - last 24 hr 01/11/18 01/11/18 01/11/18 13:37 14:00 17:32 WBC RBC Hgb Hct MCV MCH MCHC RDW Plt Count MPV Neut % (Auto) Lymph % (Auto) [place] % (Auto) Eos % (Auto) Baso % (Auto) Neut # (Auto) Lymph # (Auto) [place] # (Auto) Eos # (Auto) Baso # (Auto) PT 12.5 INR 1.1 APTT 33.6 pO2 15 L VBG pH 7.11 L* VBG pCO2 40 VBG HCO3 9.9 VBG Total CO2 13.9 L VBG O2 Sat (Calc) 29.5 L VBG Base Excess -16.2 L VBG Potassium 6.5 H* Sodium 129.0 L Chloride 101.0 Glucose 417 H* D Lactate 2.9 H FiO2 21.0 Crit Value Called To Dr barnard Crit Value Called By Rt Crit Value Read Back Y Blood Gas Notified Time 1428 Potassium Carbon Dioxide Anion Gap BUN Creatinine Est GFR ( Amer) Est GFR (Non-Af Amer) POC Glucose (mg/dL) 293 H Random Glucose Lactic Acid Calcium Total Bilirubin AST ALT Alkaline Phosphatase Total Protein Albumin Globulin Albumin/Globulin Ratio Venous Blood Potassium 6.5 H* 01/11/18 01/11/18 01/12/18 21:36 23:01 01:05 WBC RBC Hgb Hct MCV MCH MCHC RDW Plt Count MPV Neut % (Auto) Lymph % (Auto) [place] % (Auto) Eos % (Auto) Baso % (Auto) Neut # (Auto) Lymph # (Auto) [place] # (Auto) Eos # (Auto) Baso # (Auto) PT INR APTT pO2 VBG pH VBG pCO2 VBG HCO3 VBG Total CO2 VBG O2 Sat (Calc) VBG Base Excess VBG Potassium Sodium 140 Chloride 112 H Glucose Lactate FiO2 Crit Value Called To Crit Value Called By Crit Value Read Back Blood Gas Notified Time Potassium 5.4 H Carbon Dioxide 9 L* Anion Gap 24 H BUN 194 H* Creatinine 5.0 H Est GFR ( Amer) 14 Est GFR (Non-Af Amer) 11 POC Glucose (mg/dL) 187 H 191 H Random Glucose 150 H Lactic Acid Calcium 6.0 L* Total Bilirubin AST ALT Alkaline Phosphatase Total Protein Albumin Globulin Albumin/Globulin Ratio Venous Blood Potassium 01/12/18 01/12/18 01/12/18 01:10 03:42 04:00 WBC RBC Hgb Hct MCV MCH MCHC RDW Plt Count MPV Neut % (Auto) Lymph % (Auto) [place] % (Auto) Eos % (Auto) Baso % (Auto) Neut # (Auto) Lymph # (Auto) [place] # (Auto) Eos # (Auto) Baso # (Auto) PT INR APTT pO2 VBG pH VBG pCO2 VBG HCO3 VBG Total CO2 VBG O2 Sat (Calc) VBG Base Excess VBG Potassium Sodium 139 Chloride 114 H Glucose Lactate FiO2 Crit Value Called To Crit Value Called By Crit Value Read Back Blood Gas Notified Time Potassium 6.3 H* Carbon Dioxide 6 L* D Anion Gap 25 H BUN 201 H* Creatinine 5.0 H Est GFR ( Amer) 14 Est GFR (Non-Af Amer) 11 POC Glucose (mg/dL) 168 H 115 H Random Glucose 105 Lactic Acid Calcium 6.1 L Total Bilirubin 0.6 AST 13 L ALT 27 Alkaline Phosphatase 38 D Total Protein 4.9 L Albumin 2.1 L D Globulin 2.8 Albumin/Globulin Ratio 0.8 L Venous Blood Potassium 01/12/18 01/12/18 01/12/18 05:38 08:03 08:25 WBC 0.9 L* D RBC 2.99 L Hgb 9.1 L D Hct 26.7 L MCV 89.6 MCH 30.4 MCHC 34.0 RDW 15.4 H Plt Count 16 L* D MPV 8.9 Neut % (Auto) 68.1 Lymph % (Auto) 29.4 [place] % (Auto) 2.1 Eos % (Auto) 0.3 Baso % (Auto) 0.1 Neut # (Auto) 0.6 L Lymph # (Auto) 0.3 L [place] # (Auto) 0.0 Eos # (Auto) 0.0 Baso # (Auto) 0.0 PT INR APTT pO2 VBG pH VBG pCO2 VBG HCO3 VBG Total CO2 VBG O2 Sat (Calc) VBG Base Excess VBG Potassium Sodium Chloride Glucose Lactate FiO2 Crit Value Called To Crit Value Called By Crit Value Read Back Blood Gas Notified Time Potassium Carbon Dioxide Anion Gap BUN Creatinine Est GFR ( Amer) Est GFR (Non-Af Amer) POC Glucose (mg/dL) 72 111 H Random Glucose Lactic Acid Calcium Total Bilirubin AST ALT Alkaline Phosphatase Total Protein Albumin Globulin Albumin/Globulin Ratio Venous Blood Potassium 01/12/18 01/12/18 01/12/18 08:25 10:00 10:02 WBC RBC Hgb Hct MCV MCH MCHC RDW Plt Count MPV Neut % (Auto) Lymph % (Auto) [place] % (Auto) Eos % (Auto) Baso % (Auto) Neut # (Auto) Lymph # (Auto) [place] # (Auto) Eos # (Auto) Baso # (Auto) PT INR APTT pO2 VBG pH VBG pCO2 VBG HCO3 VBG Total CO2 VBG O2 Sat (Calc) VBG Base Excess VBG Potassium Sodium 140 Chloride 112 H Glucose Lactate FiO2 Crit Value Called To Crit Value Called By Crit Value Read Back Blood Gas Notified Time Potassium 5.9 H Carbon Dioxide 11 L* D Anion Gap 23 H BUN 200 H* Creatinine 5.0 H Est GFR ( Amer) 14 Est GFR (Non-Af Amer) 11 POC Glucose (mg/dL) 134 H Random Glucose 128 H Lactic Acid 1.0 Calcium 5.8 L* Total Bilirubin AST ALT Alkaline Phosphatase Total Protein Albumin Globulin Albumin/Globulin Ratio Venous Blood Potassium 01/12/18 01/12/18 01/12/18 11:20 12:14 13:02 WBC RBC Hgb Hct MCV MCH MCHC RDW Plt Count MPV Neut % (Auto) Lymph % (Auto) [place] % (Auto) Eos % (Auto) Baso % (Auto) Neut # (Auto) Lymph # (Auto) [place] # (Auto) Eos # (Auto) Baso # (Auto) PT INR APTT pO2 VBG pH VBG pCO2 VBG HCO3 VBG Total CO2 VBG O2 Sat (Calc) VBG Base Excess VBG Potassium Sodium Chloride Glucose Lactate FiO2 Crit Value Called To Crit Value Called By Crit Value Read Back Blood Gas Notified Time Potassium Carbon Dioxide Anion Gap BUN Creatinine Est GFR ( Amer) Est GFR (Non-Af Amer) POC Glucose (mg/dL) 104 92 90 Random Glucose Lactic Acid Calcium Total Bilirubin AST ALT Alkaline Phosphatase Total Protein Albumin Globulin Albumin/Globulin Ratio Venous Blood Potassium EKG/Cardiology Studies: Cardiology / EKG Studies 01/11/18 13:21 ELECTROCARDIOGRAM Stat Comment: Mode Of Transportation: Reason For Exam: Sepsis Patient Fingerstick Blood Sugar Results: 104 Review of Systems - EENT Eyes: UNREMARKABLE. absent: Change in Vision Ears: UNREMARKABLE. absent: Ear Discharge, Ear Pain Nose/Mouth/Throat: UNREMARKABLE - Cardiovascular Cardiovascular: UNREMARKABLE. absent: Chest Pain - Respiratory Respiratory: UNREMARKABLE. absent: Dyspnea, Hemoptysis - Gastrointestinal Gastrointestinal: absent: Abdominal Pain Critical Care Progress Note - Nutrition Nutrition: Nutrition Category Date Time Status Liquid Diet [DIET] Diets 01/12/18 Breakfast Active Assessment/Plan - Assessment and Plan (Free Text) Assessment: 77 y/o M with a PMHx of DM 2, R first toe osteomylitis, MDS w/ secondary pancytopenia admitted for management of DKA as pt has been persistently vomiting for 3 days after initiating daily chemotherapy 4 days ago. >Diabetic Keto-Acidosis -Insulin drip -1x IV NS bolus today -IV D5W1/2NS at 175mL/hr after bolus. -Check sugar levels Q2H -Monitor Bicarbonate and potassium levels -Hypoglycemia protocol -Endocrinology consult, Dr Whitney. >Acute Kidney Injury -Persistent elevated BUN/Creat -Possibly due to dehydration/acute on CKD -IV hydration -Nephrology consult, Dr Norman De La Vega >Hyperkalemia -C/w IV Insulin drip as protocol -Monitor BMP. >Emesis, abdominal pain -CT scan: Mac colitis, possible cystitis and b/l lower pneumonia. -ID on consult, Dr Bright -Meropenem was initiated as per ID. >Pancytopenia -Secondary to MDS. -On Iron supplement -Granix and Procrit. 1x dose. -Hematology on board, Dr Pace >Myelodysplastic Syndrome -Hematology on consult, Katelynn. 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 -Podiatry on consult: X ray and Vascular Surgery Consult. >DVT prophylaxis -SCD's - Date & Time Date: 01/12/18 Time: 12:30 <Shade Van - Last Filed: 01/12/18 18:52> CCU Subjective - Physician Review Subjective (Free Text): Attestation: Patient seen and examined at the bedside with Resident Dr. Susana Brown; and I agree with his outline of plans and management documented below as discussed on AM rounds reflecting my review of all applicable clinical data, and participation in the care of the patient throughout the day in ICU; today, January 12, 2018.
--- NOTE | 2018-01-12 14:14 | CP.PCM.PN ---
Subjective - Date & Time of Evaluation Date of Evaluation: 01/12/18 Time of Evaluation: 14:14 - Subjective Subjective: ID note- Pt. seen and examined today in ICU. more awake and alert today. denies any fever or chills but is weak. still has some nausea. afebrile. Objective - Vital Signs/Intake and Output Vital Signs (last 24 hours): Temp Pulse Resp BP Pulse Ox 97.8 F 93 H 17 136/93 H 100 01/12/18 12:00 01/12/18 12:00 01/12/18 12:00 01/12/18 12:00 01/12/18 12:00 Intake and Output: 01/12/18 01/12/18 06:59 18:59 Intake Total 1525 1626 Output Total 90 Balance 1435 1626 - Medications Medications: Current Medications Dextrose (Dextrose 50% Inj) 0 ml IV STAT PRN; Protocol PRN Reason: Hypoglycemia Protocol Dextrose (Glutose 15) 0 gm PO ONCE PRN; Protocol PRN Reason: Hypoglycemia Protocol Ferrous Sulfate (Feosol) 325 mg PO TID [place] Last Admin: 01/12/18 09:37 Dose: Not Given Gabapentin (Neurontin) 300 mg PO TID [place] Last Admin: 01/12/18 09:37 Dose: Not Given Glucagon (Glucagen Diagnostic Kit) 0 mg IM STAT PRN; Protocol PRN Reason: Hypoglycemia Protocol Meropenem 500 mg/ Sodium (Chloride) 100 mls @ 100 mls/hr IVPB Q12 [place] PRN Reason: Protocol Last Admin: 01/12/18 11:25 Dose: 100 mls/hr Dextrose/Sodium Chloride (Dextrose 5%-0.45% Ns 500 Ml) 1,000 mls @ 175 mls/hr IV .Q5H43M [facility] Stop: 01/13/18 08:46 Last Admin: 01/12/18 10:24 Dose: 175 mls/hr Insulin Human Regular 100 (units/ Sodium Chloride) 101 mls @ 3.03 mls/hr IV .Q24H [place]; 3 UNITS/HR PRN Reason: Protocol Last Titration: 01/12/18 11:24 Dose: 1.5 units/hr, 1.51 mls/hr Ondansetron HCl (Zofran Inj) 4 mg IVP Q6 PRN PRN Reason: Nausea/Vomiting Last Admin: 01/12/18 10:26 Dose: 4 mg Pantoprazole Sodium (Protonix Inj) 40 mg IVP DAILY [place] Last Admin: 01/12/18 09:38 Dose: 40 mg - Labs Labs: - Additional Findings Additional findings: - Constitutional Appears: Cachectic, Chronically Ill - Head Exam Head Exam: ATRAUMATIC - Eye Exam Eye Exam: EOMI, PERRL - ENT Exam ENT Exam: Normal Oropharynx - Neck Exam Neck exam: Positive for: Full Rom - Respiratory Exam Respiratory Exam:no wheezing slight decrease in BS in right base - Cardiovascular Exam Cardiovascular Exam: RRR, +S1, +S2 - GI/Abdominal Exam GI & Abdominal Exam: Normal Bowel Sounds, Soft Additional comments: NT, ND - Extremities Exam Additional comments: right distal hallux with necrotic ulcer , no malodor. no surrounding erythema left heel with dry ulcer dark discoloration, no skin breakage - Neurological Exam Neurological exam: Alert, Oriented x 3 Laboratory Results - last 72 hr 01/11/18 01/11/18 01/11/18 12:30 12:30 12:30 WBC 2.5 L RBC 4.20 L Hgb 12.6 D Hct 37.2 MCV 88.6 D MCH 30.0 MCHC 33.8 RDW 15.6 H Plt Count 27 L* MPV 8.9 Neut % (Auto) 86.6 H Lymph % (Auto) 11.7 L [place] % (Auto) 1.5 Eos % (Auto) 0.1 Baso % (Auto) 0.1 Neut # (Auto) 2.2 Lymph # (Auto) 0.3 L [place] # (Auto) 0.0 Eos # (Auto) 0.0 Baso # (Auto) 0.0 PT INR APTT pO2 VBG pH VBG pCO2 VBG HCO3 VBG Total CO2 VBG O2 Sat (Calc) VBG Base Excess VBG Potassium Glucose Lactate FiO2 Crit Value Called To Crit Value Called By Crit Value Read Back Blood Gas Notified Time Sodium 131 L Potassium 6.8 H* D Chloride 99 Carbon Dioxide 10 L* D Anion Gap 29 H BUN 203 H* D Creatinine 5.5 H Est GFR ( Amer) 12 Est GFR (Non-Af Amer) 10 POC Glucose (mg/dL) Random Glucose 463 H* D Lactic Acid Calcium 6.9 L Total Bilirubin 0.5 AST 16 L ALT 31 Alkaline Phosphatase 73 Total Protein 6.2 L Albumin 3.0 L Globulin 3.1 Albumin/Globulin Ratio 1.0 Venous Blood Potassium Urine Color Yellow Urine Clarity Cloudy Urine pH 5.0 Ur Specific [place] 1.018 Urine Protein 100 Urine Glucose (UA) 50 Urine Ketones Negative Urine Blood Large Urine Nitrate Negative Urine Bilirubin Negative Urine Urobilinogen 0.2-1.0 Ur Leukocyte Esterase Trace Urine RBC (Auto) 168 H Urine Microscopic WBC 11 H Ur Squamous Epith Cells 2 Urine Bacteria Rare Hyaline Casts 6-10 H 01/11/18 01/11/18 01/11/18 13:37 14:00 17:32 WBC RBC Hgb Hct MCV MCH MCHC RDW Plt Count MPV Neut % (Auto) Lymph % (Auto) [place] % (Auto) Eos % (Auto) Baso % (Auto) Neut # (Auto) Lymph # (Auto) [place] # (Auto) Eos # (Auto) Baso # (Auto) PT 12.5 INR 1.1 APTT 33.6 pO2 15 L VBG pH 7.11 L* VBG pCO2 40 VBG HCO3 9.9 VBG Total CO2 13.9 L VBG O2 Sat (Calc) 29.5 L VBG Base Excess -16.2 L VBG Potassium 6.5 H* Glucose 417 H* D Lactate 2.9 H FiO2 21.0 Crit Value Called To Dr barnard Crit Value Called By Rt Crit Value Read Back Y Blood Gas Notified Time 1428 Sodium 129.0 L Potassium Chloride 101.0 Carbon Dioxide Anion Gap BUN Creatinine Est GFR ( Amer) Est GFR (Non-Af Amer) POC Glucose (mg/dL) 293 H Random Glucose Lactic Acid Calcium Total Bilirubin AST ALT Alkaline Phosphatase Total Protein Albumin Globulin Albumin/Globulin Ratio Venous Blood Potassium 6.5 H* Urine Color Urine Clarity Urine pH Ur Specific [place] Urine Protein Urine Glucose (UA) Urine Ketones Urine Blood Urine Nitrate Urine Bilirubin Urine Urobilinogen Ur Leukocyte Esterase Urine RBC (Auto) Urine Microscopic WBC Ur Squamous Epith Cells Urine Bacteria Hyaline Casts 01/11/18 01/11/18 01/12/18 21:36 23:01 01:05 WBC RBC Hgb Hct MCV MCH MCHC RDW Plt Count MPV Neut % (Auto) Lymph % (Auto) [place] % (Auto) Eos % (Auto) Baso % (Auto) Neut # (Auto) Lymph # (Auto) [place] # (Auto) Eos # (Auto) Baso # (Auto) PT INR APTT pO2 VBG pH VBG pCO2 VBG HCO3 VBG Total CO2 VBG O2 Sat (Calc) VBG Base Excess VBG Potassium Glucose Lactate FiO2 Crit Value Called To Crit Value Called By Crit Value Read Back Blood Gas Notified Time Sodium 140 Potassium 5.4 H Chloride 112 H Carbon Dioxide 9 L* Anion Gap 24 H BUN 194 H* Creatinine 5.0 H Est GFR ( Amer) 14 Est GFR (Non-Af Amer) 11 POC Glucose (mg/dL) 187 H 191 H Random Glucose 150 H Lactic Acid Calcium 6.0 L* Total Bilirubin AST ALT Alkaline Phosphatase Total Protein Albumin Globulin Albumin/Globulin Ratio Venous Blood Potassium Urine Color Urine Clarity Urine pH Ur Specific [place] Urine Protein Urine Glucose (UA) Urine Ketones Urine Blood Urine Nitrate Urine Bilirubin Urine Urobilinogen Ur Leukocyte Esterase Urine RBC (Auto) Urine Microscopic WBC Ur Squamous Epith Cells Urine Bacteria Hyaline Casts 01/12/18 01/12/18 01/12/18 01:10 03:42 04:00 WBC RBC Hgb Hct MCV MCH MCHC RDW Plt Count MPV Neut % (Auto) Lymph % (Auto) [place] % (Auto) Eos % (Auto) Baso % (Auto) Neut # (Auto) Lymph # (Auto) [place] # (Auto) Eos # (Auto) Baso # (Auto) PT INR APTT pO2 VBG pH VBG pCO2 VBG HCO3 VBG Total CO2 VBG O2 Sat (Calc) VBG Base Excess VBG Potassium Glucose Lactate FiO2 Crit Value Called To Crit Value Called By Crit Value Read Back Blood Gas Notified Time Sodium 139 Potassium 6.3 H* Chloride 114 H Carbon Dioxide 6 L* D Anion Gap 25 H BUN 201 H* Creatinine 5.0 H Est GFR ( Amer) 14 Est GFR (Non-Af Amer) 11 POC Glucose (mg/dL) 168 H 115 H Random Glucose 105 Lactic Acid Calcium 6.1 L Total Bilirubin 0.6 AST 13 L ALT 27 Alkaline Phosphatase 38 D Total Protein 4.9 L Albumin 2.1 L D Globulin 2.8 Albumin/Globulin Ratio 0.8 L Venous Blood Potassium Urine Color Urine Clarity Urine pH Ur Specific [place] Urine Protein Urine Glucose (UA) Urine Ketones Urine Blood Urine Nitrate Urine Bilirubin Urine Urobilinogen Ur Leukocyte Esterase Urine RBC (Auto) Urine Microscopic WBC Ur Squamous Epith Cells Urine Bacteria Hyaline Casts 01/12/18 01/12/18 01/12/18 05:38 08:03 08:25 WBC 0.9 L* D RBC 2.99 L Hgb 9.1 L D Hct 26.7 L MCV 89.6 MCH 30.4 MCHC 34.0 RDW 15.4 H Plt Count 16 L* D MPV 8.9 Neut % (Auto) 68.1 Lymph % (Auto) 29.4 [place] % (Auto) 2.1 Eos % (Auto) 0.3 Baso % (Auto) 0.1 Neut # (Auto) 0.6 L Lymph # (Auto) 0.3 L [place] # (Auto) 0.0 Eos # (Auto) 0.0 Baso # (Auto) 0.0 PT INR APTT pO2 VBG pH VBG pCO2 VBG HCO3 VBG Total CO2 VBG O2 Sat (Calc) VBG Base Excess VBG Potassium Glucose Lactate FiO2 Crit Value Called To Crit Value Called By Crit Value Read Back Blood Gas Notified Time Sodium Potassium Chloride Carbon Dioxide Anion Gap BUN Creatinine Est GFR ( Amer) Est GFR (Non-Af Amer) POC Glucose (mg/dL) 72 111 H Random Glucose Lactic Acid Calcium Total Bilirubin AST ALT Alkaline Phosphatase Total Protein Albumin Globulin Albumin/Globulin Ratio Venous Blood Potassium Urine Color Urine Clarity Urine pH Ur Specific [place] Urine Protein Urine Glucose (UA) Urine Ketones Urine Blood Urine Nitrate Urine Bilirubin Urine Urobilinogen Ur Leukocyte Esterase Urine RBC (Auto) Urine Microscopic WBC Ur Squamous Epith Cells Urine Bacteria Hyaline Casts 01/12/18 01/12/18 01/12/18 08:25 10:00 10:02 WBC RBC Hgb Hct MCV MCH MCHC RDW Plt Count MPV Neut % (Auto) Lymph % (Auto) [place] % (Auto) Eos % (Auto) Baso % (Auto) Neut # (Auto) Lymph # (Auto) [place] # (Auto) Eos # (Auto) Baso # (Auto) PT INR APTT pO2 VBG pH VBG pCO2 VBG HCO3 VBG Total CO2 VBG O2 Sat (Calc) VBG Base Excess VBG Potassium Glucose Lactate FiO2 Crit Value Called To Crit Value Called By Crit Value Read Back Blood Gas Notified Time Sodium 140 Potassium 5.9 H Chloride 112 H Carbon Dioxide 11 L* D Anion Gap 23 H BUN 200 H* Creatinine 5.0 H Est GFR ( Amer) 14 Est GFR (Non-Af Amer) 11 POC Glucose (mg/dL) 134 H Random Glucose 128 H Lactic Acid 1.0 Calcium 5.8 L* Total Bilirubin AST ALT Alkaline Phosphatase Total Protein Albumin Globulin Albumin/Globulin Ratio Venous Blood Potassium Urine Color Urine Clarity Urine pH Ur Specific [place] Urine Protein Urine Glucose (UA) Urine Ketones Urine Blood Urine Nitrate Urine Bilirubin Urine Urobilinogen Ur Leukocyte Esterase Urine RBC (Auto) Urine Microscopic WBC Ur Squamous Epith Cells Urine Bacteria Hyaline Casts 01/12/18 01/12/18 01/12/18 11:20 12:14 13:02 WBC RBC Hgb Hct MCV MCH MCHC RDW Plt Count MPV Neut % (Auto) Lymph % (Auto) [place] % (Auto) Eos % (Auto) Baso % (Auto) Neut # (Auto) Lymph # (Auto) [place] # (Auto) Eos # (Auto) Baso # (Auto) PT INR APTT pO2 VBG pH VBG pCO2 VBG HCO3 VBG Total CO2 VBG O2 Sat (Calc) VBG Base Excess VBG Potassium Glucose Lactate FiO2 Crit Value Called To Crit Value Called By Crit Value Read Back Blood Gas Notified Time Sodium Potassium Chloride Carbon Dioxide Anion Gap BUN Creatinine Est GFR ( Amer) Est GFR (Non-Af Amer) POC Glucose (mg/dL) 104 92 90 Random Glucose Lactic Acid Calcium Total Bilirubin AST ALT Alkaline Phosphatase Total Protein Albumin Globulin Albumin/Globulin Ratio Venous Blood Potassium Urine Color Urine Clarity Urine pH Ur Specific [place] Urine Protein Urine Glucose (UA) Urine Ketones Urine Blood Urine Nitrate Urine Bilirubin Urine Urobilinogen Ur Leukocyte Esterase Urine RBC (Auto) Urine Microscopic WBC Ur Squamous Epith Cells Urine Bacteria Hyaline Casts 01/12/18 14:13 WBC RBC Hgb Hct MCV MCH MCHC RDW Plt Count MPV Neut % (Auto) Lymph % (Auto) [place] % (Auto) Eos % (Auto) Baso % (Auto) Neut # (Auto) Lymph # (Auto) [place] # (Auto) Eos # (Auto) Baso # (Auto) PT INR APTT pO2 VBG pH VBG pCO2 VBG HCO3 VBG Total CO2 VBG O2 Sat (Calc) VBG Base Excess VBG Potassium Glucose Lactate FiO2 Crit Value Called To Crit Value Called By Crit Value Read Back Blood Gas Notified Time Sodium Potassium Chloride Carbon Dioxide Anion Gap BUN Creatinine Est GFR ( Amer) Est GFR (Non-Af Amer) POC Glucose (mg/dL) 96 Random Glucose Lactic Acid Calcium Total Bilirubin AST ALT Alkaline Phosphatase Total Protein Albumin Globulin Albumin/Globulin Ratio Venous Blood Potassium Urine Color Urine Clarity Urine pH Ur Specific [place] Urine Protein Urine Glucose (UA) Urine Ketones Urine Blood Urine Nitrate Urine Bilirubin Urine Urobilinogen Ur Leukocyte Esterase Urine RBC (Auto) Urine Microscopic WBC Ur Squamous Epith Cells Urine Bacteria Hyaline Casts Microbiology 01/11/18 14:44 Blood Blood Culture - Preliminary NO GROWTH AFTER 24 HOURS 01/11/18 12:30 Urine Urine Culture - Final No Growth (<1,000 CFU/ML) Accession No. : [id number] Patient Name / ID : ALEJO MARTINES / [id number] Exam Date : 01/12/2018 13:43:56 ( Approved ) Study Comment : Sex / Age : M / 77Y Creator : Koko Smith MD Dictator : Koko Smith MD Circus Artist : Crate Opener : Koko Smith MD Approver2 : Report Date : 01/12/2018 14:27:49 My Comment : Date of service: 01/12/2018 PROCEDURE: Bilateral Feet Radiographs. HISTORY: To R/O OM R hallux and for L heel discoloration COMPARISON: Right foot radiographs 11/10/2017. TECHNIQUE: Two radiographs of each foot been submitted for interpretation. FINDINGS: At the right foot, late stage osteoarthritis is appreciated at the 1st metatarsophalangeal joint which is unchanged in appearance. There is minimal residual joint space remaining with gross articular cortical sclerosis and prominent osteophyte development circumferentially. No acute fracture dislocation is appreciated throughout the right foot and limited degenerative cortical sclerosis and joint space narrowing seen throughout the interphalangeal joints once again as well as at the tarsal metatarsal articulations and the talonavicular joint. Small accessory ossicle seen abutting the posteromedial margins of the right navicular bone. No focal lytic changes are appreciated or periosteal reaction to suggest definite osteomyelitis. Clinically correlate. Soft tissue edema is suggested related to the great toe distally. At the left foot, fusion of the 1st metatarsophalangeal joint is appreciated with no acute fracture, subluxation or dislocation identified throughout. Degenerative changes are similar throughout the interphalangeal joints though less so at the left talonavicular joint when compared to the right. Tarsal metatarsal articulations appear degenerated with potential fusion at the middle cuneiform articulation with the 2nd and/or 3rd metatarsal bases. Diffuse osteopenia suggests osteoporosis bilaterally. IMPRESSION: 1. 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 No interval acute fracture, subluxation or dislocation. No definitive radiographic sign of osteomyelitis in the interval at the great toe. Clinically correlate further. MRI is available follow-up if clinically warranted. 2. Fusion of the 1st metatarsal phalangeal joint left foot without acute fracture or dislocation appreciated. 3. Degenerative changes bilateral forefeet greater than hind and midfoot regions. Assessment and Plan (1) MECHELLE (acute kidney injury) Status: Acute (2) Chronic wound of extremity Status: Acute (3) Pancytopenia Status: Acute - Assessment and Plan (Free Text) Assessment: A/P- 77 year old male with multiple medical conditions including DM II, chronic Right erlin toe necrotic Ulcer ,? OM , pancytopenia, MDS s/p first chemo admitted with nausea/vomiting, high lactate and glucose found to be in DKA, acute renal insufficiency, hyperkalemic. afebrile neutropenic now , wbc has decreased since yesterday. thrombocytopenia has also worsened. GIS[place] hyperkalemia high lactate DKA ct abd report-pancolitis and ? bibasilar infiltrates as per report read by radiologist. foot xray- No obvious OM, osteoarthritis blood cx- neg x 1 urine cx- neg Plan- check sputum cx. continue with IV meropenem for nosocomial coverage in light of recently being in [facility] and abd/pelvic CT report of ? colitis/cystitis and also since pt. is neutropenic he is susceptible to any infection hence also empiric coverage. the chronic foot diabetic ulcer was treated already with IV vanco and zosyn for 20 days. advise to get podiatry evaluation again for local wound care. DKA and acidosis management as per ICU team. if patient spikes temp would advise to give vanco as well but every other day or every 48 hours dosing until renal function improves. All above d/w patient and his son who is at bedside at [facility]. All above also d/w DR.Pierre Guzmán at length. ICU time 45 min.
--- NOTE | 2018-01-12 14:28 | CP.PCM.CON ---
History of Present Illness - History of Present Illness History of Present Illness: This patient however is 77 years of age male I was called to see him for abnormal kidney function. 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 And noted that his BUN/creatinine elevated serum potassium and electrolyte among other things. This patient was in this hospital previously recent past and he has a chronic kidney disease underlying the problem in addition to multitude of medical problem as noted Past medical history as noted above in addition he has perirectal abscess last admission and multiple sepsis pancytopenia foot ulcer and diabetes mellitus Review of Systems - Constitutional Constitutional: Anorexia. absent: Chills - Cardiovascular Cardiovascular: Leg Ulcers. absent: Acrocyanosis, Leg Edema - Respiratory Respiratory: absent: Cough, Dyspnea, Hemoptysis - Gastrointestinal Gastrointestinal: Abdominal Pain, Nausea. absent: Coffee Ground Emesis - Genitourinary Genitourinary: Nocturia - Musculoskeletal Musculoskeletal: Muscle Weakness, Myalgias - Neurological Neurological: Confusion. absent: Focal Weakness, Syncope - Psychiatric Psychiatric: Difficulty Concentrating - Hematologic/Lymphatic Hematologic: absent: Easy Bleeding Past Patient History - Infectious Disease Hx of Infectious Diseases: None - Tetanus Immunizations Tetanus Immunization: Unknown - Past Medical History & Family History Past Medical History?: Yes - Past Social History Alcohol: None Drugs: Denies - CARDIAC Hx Hypercholesterolemia: Yes Hx Hypertension: Yes - PULMONARY Hx Respiratory Disorders: No - NEUROLOGICAL Hx Neurological Disorder: No - HEENT Hx HEENT Problems: No - RENAL Hx Chronic Kidney Disease: Yes Hx Kidney Stones: Yes - ENDOCRINE/METABOLIC Hx Diabetes Mellitus Type 2: Yes - HEMATOLOGICAL/ONCOLOGICAL Hx Anemia: Yes Hx Human Immunodeficiency Virus (HIV): No - INTEGUMENTARY Hx Dermatological Problems: No - MUSCULOSKELETAL/RHEUMATOLOGICAL Hx Musculoskeletal Disorders: Yes Hx Falls: Yes Other/Comment: BONE CA (PER ALF REPORT) - GASTROINTESTINAL Hx Gastrointestinal Disorders: No - GENITOURINARY/GYNECOLOGICAL Hx Genitourinary Disorders: No - PSYCHIATRIC Hx Depression: Yes - SURGICAL HISTORY Other/Comment: Bunion - ANESTHESIA Hx Anesthesia: Yes Hx Anesthesia Reactions: No Meds Allergies/Adverse Reactions: Allergies Allergy/AdvReac Type Severity Reaction Status Date / Time No Known Allergies Allergy Verified 01/11/18 11:58 - Medications Medications: Current Medications Dextrose (Dextrose 50% Inj) 0 ml IV STAT PRN; Protocol PRN Reason: Hypoglycemia Protocol Dextrose (Glutose 15) 0 gm PO ONCE PRN; Protocol PRN Reason: Hypoglycemia Protocol Ferrous Sulfate (Feosol) 325 mg PO TID [facility] Last Admin: 01/12/18 09:37 Dose: Not Given Gabapentin (Neurontin) 300 mg PO TID [facility] Last Admin: 01/12/18 09:37 Dose: Not Given Glucagon (Glucagen Diagnostic Kit) 0 mg IM STAT PRN; Protocol PRN Reason: Hypoglycemia Protocol Meropenem 500 mg/ Sodium (Chloride) 100 mls @ 100 mls/hr IVPB Q12 [place] PRN Reason: Protocol Last Admin: 01/12/18 11:25 Dose: 100 mls/hr Dextrose/Sodium Chloride (Dextrose 5%-0.45% Ns 500 Ml) 1,000 mls @ 175 mls/hr IV .Q5H43M [facility] Stop: 01/13/18 08:46 Last Admin: 01/12/18 10:24 Dose: 175 mls/hr Insulin Human Regular 100 (units/ Sodium Chloride) 101 mls @ 3.03 mls/hr IV .Q24H [place]; 3 UNITS/HR PRN Reason: Protocol Last Titration: 01/12/18 11:24 Dose: 1.5 units/hr, 1.51 mls/hr Ondansetron HCl (Zofran Inj) 4 mg IVP Q6 PRN PRN Reason: Nausea/Vomiting Last Admin: 01/12/18 10:26 Dose: 4 mg Pantoprazole Sodium (Protonix Inj) 40 mg IVP DAILY [facility] Last Admin: 01/12/18 09:38 Dose: 40 mg Physical Exam - Constitutional Appears: No Acute Distress - Eye Exam Eye Exam: Conjunctival injection - ENT Exam ENT Exam: Mucous Membranes Dry - Respiratory Exam Respiratory Exam: NORMAL BREATHING PATTERN. absent: Chest Wall Tenderness, Rhonchi - Cardiovascular Exam Cardiovascular Exam: absent: Gallop, JVD, Rubs - GI/Abdominal Exam GI & Abdominal Exam: Normal Bowel Sounds - Extremities Exam Extremities exam: Negative for: calf tenderness - Back Exam Back exam: absent: CVA tenderness (L), CVA tenderness (R) - Neurological Exam Neurological exam: Alert Results - Vital Signs Recent Vital Signs: Last Vital Signs Temp 97.8 F 01/12/18 12:00 Pulse 93 H 01/12/18 12:00 Resp 17 01/12/18 12:00 BP 136/93 H 01/12/18 12:00 Pulse Ox 100 01/12/18 12:00 - Labs Result Diagrams: 01/12/18 08:25 01/12/18 10:00 Labs: Laboratory Results - last 24 hr 01/11/18 01/11/18 01/11/18 14:00 17:32 21:36 WBC RBC Hgb Hct MCV MCH MCHC RDW Plt Count MPV Neut % (Auto) Lymph % (Auto) [place] % (Auto) Eos % (Auto) Baso % (Auto) Neut # (Auto) Lymph # (Auto) [place] # (Auto) Eos # (Auto) Baso # (Auto) pO2 15 L VBG pH 7.11 L* VBG pCO2 40 VBG HCO3 9.9 VBG Total CO2 13.9 L VBG O2 Sat (Calc) 29.5 L VBG Base Excess -16.2 L VBG Potassium 6.5 H* Sodium 129.0 L Chloride 101.0 Glucose 417 H* D Lactate 2.9 H FiO2 21.0 Crit Value Called To Dr barnard Crit Value Called By Rt Crit Value Read Back Y Blood Gas Notified Time 1428 Potassium Carbon Dioxide Anion Gap BUN Creatinine Est GFR ( Amer) Est GFR (Non-Af Amer) POC Glucose (mg/dL) 293 H 187 H Random Glucose Lactic Acid Calcium Total Bilirubin AST ALT Alkaline Phosphatase Total Protein Albumin Globulin Albumin/Globulin Ratio Venous Blood Potassium 6.5 H* 01/11/18 01/12/18 01/12/18 23:01 01:05 01:10 WBC RBC Hgb Hct MCV MCH MCHC RDW Plt Count MPV Neut % (Auto) Lymph % (Auto) [place] % (Auto) Eos % (Auto) Baso % (Auto) Neut # (Auto) Lymph # (Auto) [place] # (Auto) Eos # (Auto) Baso # (Auto) pO2 VBG pH VBG pCO2 VBG HCO3 VBG Total CO2 VBG O2 Sat (Calc) VBG Base Excess VBG Potassium Sodium 140 Chloride 112 H Glucose Lactate FiO2 Crit Value Called To Crit Value Called By Crit Value Read Back Blood Gas Notified Time Potassium 5.4 H Carbon Dioxide 9 L* Anion Gap 24 H BUN 194 H* Creatinine 5.0 H Est GFR ( Amer) 14 Est GFR (Non-Af Amer) 11 POC Glucose (mg/dL) 191 H 168 H Random Glucose 150 H Lactic Acid Calcium 6.0 L* Total Bilirubin AST ALT Alkaline Phosphatase Total Protein Albumin Globulin Albumin/Globulin Ratio Venous Blood Potassium 01/12/18 01/12/18 01/12/18 03:42 04:00 05:38 WBC RBC Hgb Hct MCV MCH MCHC RDW Plt Count MPV Neut % (Auto) Lymph % (Auto) [place] % (Auto) Eos % (Auto) Baso % (Auto) Neut # (Auto) Lymph # (Auto) [place] # (Auto) Eos # (Auto) Baso # (Auto) pO2 VBG pH VBG pCO2 VBG HCO3 VBG Total CO2 VBG O2 Sat (Calc) VBG Base Excess VBG Potassium Sodium 139 Chloride 114 H Glucose Lactate FiO2 Crit Value Called To Crit Value Called By Crit Value Read Back Blood Gas Notified Time Potassium 6.3 H* Carbon Dioxide 6 L* D Anion Gap 25 H BUN 201 H* Creatinine 5.0 H Est GFR ( Amer) 14 Est GFR (Non-Af Amer) 11 POC Glucose (mg/dL) 115 H 72 Random Glucose 105 Lactic Acid Calcium 6.1 L Total Bilirubin 0.6 AST 13 L ALT 27 Alkaline Phosphatase 38 D Total Protein 4.9 L Albumin 2.1 L D Globulin 2.8 Albumin/Globulin Ratio 0.8 L Venous Blood Potassium 01/12/18 01/12/18 01/12/18 08:03 08:25 08:25 WBC 0.9 L* D RBC 2.99 L Hgb 9.1 L D Hct 26.7 L MCV 89.6 MCH 30.4 MCHC 34.0 RDW 15.4 H Plt Count 16 L* D MPV 8.9 Neut % (Auto) 68.1 Lymph % (Auto) 29.4 [place] % (Auto) 2.1 Eos % (Auto) 0.3 Baso % (Auto) 0.1 Neut # (Auto) 0.6 L Lymph # (Auto) 0.3 L [place] # (Auto) 0.0 Eos # (Auto) 0.0 Baso # (Auto) 0.0 pO2 VBG pH VBG pCO2 VBG HCO3 VBG Total CO2 VBG O2 Sat (Calc) VBG Base Excess VBG Potassium Sodium Chloride Glucose Lactate FiO2 Crit Value Called To Crit Value Called By Crit Value Read Back Blood Gas Notified Time Potassium Carbon Dioxide Anion Gap BUN Creatinine Est GFR ( Amer) Est GFR (Non-Af Amer) POC Glucose (mg/dL) 111 H Random Glucose Lactic Acid 1.0 Calcium Total Bilirubin AST ALT Alkaline Phosphatase Total Protein Albumin Globulin Albumin/Globulin Ratio Venous Blood Potassium 01/12/18 01/12/18 01/12/18 10:00 10:02 11:20 WBC RBC Hgb Hct MCV MCH MCHC RDW Plt Count MPV Neut % (Auto) Lymph % (Auto) [place] % (Auto) Eos % (Auto) Baso % (Auto) Neut # (Auto) Lymph # (Auto) [place] # (Auto) Eos # (Auto) Baso # (Auto) pO2 VBG pH VBG pCO2 VBG HCO3 VBG Total CO2 VBG O2 Sat (Calc) VBG Base Excess VBG Potassium Sodium 140 Chloride 112 H Glucose Lactate FiO2 Crit Value Called To Crit Value Called By Crit Value Read Back Blood Gas Notified Time Potassium 5.9 H Carbon Dioxide 11 L* D Anion Gap 23 H BUN 200 H* Creatinine 5.0 H Est GFR ( Amer) 14 Est GFR (Non-Af Amer) 11 POC Glucose (mg/dL) 134 H 104 Random Glucose 128 H Lactic Acid Calcium 5.8 L* Total Bilirubin AST ALT Alkaline Phosphatase Total Protein Albumin Globulin Albumin/Globulin Ratio Venous Blood Potassium 01/12/18 01/12/18 01/12/18 12:14 13:02 14:13 WBC RBC Hgb Hct MCV MCH MCHC RDW Plt Count MPV Neut % (Auto) Lymph % (Auto) [place] % (Auto) Eos % (Auto) Baso % (Auto) Neut # (Auto) Lymph # (Auto) [place] # (Auto) Eos # (Auto) Baso # (Auto) pO2 VBG pH VBG pCO2 VBG HCO3 VBG Total CO2 VBG O2 Sat (Calc) VBG Base Excess VBG Potassium Sodium Chloride Glucose Lactate FiO2 Crit Value Called To Crit Value Called By Crit Value Read Back Blood Gas Notified Time Potassium Carbon Dioxide Anion Gap BUN Creatinine Est GFR ( Amer) Est GFR (Non-Af Amer) POC Glucose (mg/dL) 92 90 96 Random Glucose Lactic Acid Calcium Total Bilirubin AST ALT Alkaline Phosphatase Total Protein Albumin Globulin Albumin/Globulin Ratio Venous Blood Potassium Assessment & Plan (1) MECHELLE (acute kidney injury) Assessment and Plan: Acute kidney injury superimposed on chronic kidney disease stage III perhaps. Severe dehydration Hyperkalemia Metabolic acidosis Pancytopenia Foot ulcer Possible sepsis Myeloproliferative disorder with the status post chemotherapy Recommendation Patient appeared to be very dry so continue IV fluid 175 mL/h D5 and half- normal saline and add sodium bicarbonate to every other IV bag for the metabolic acidosis To give stat Kayexalate Patient making good urine output as noted now in intensive care unit. Monitor kidney function by tomorrow we will repeat the blood work and make a decision about the need for dialysis Status: Acute (2) Chronic wound of extremity Status: Acute
--- NOTE | 2018-01-12 14:34 | RAD ---
Date of service: 01/12/2018 PROCEDURE: Bilateral Feet Radiographs. HISTORY: To R/O OM R hallux and for L heel discoloration COMPARISON: Right foot radiographs 11/10/2017. TECHNIQUE: Two radiographs of each foot been submitted for interpretation. FINDINGS: At the right foot, late stage osteoarthritis is appreciated at the 1st metatarsophalangeal joint which is unchanged in appearance. There is minimal residual joint space remaining with gross articular cortical sclerosis and prominent osteophyte development circumferentially. No acute fracture dislocation is appreciated throughout the right foot and limited degenerative cortical sclerosis and joint space narrowing seen throughout the interphalangeal joints once again as well as at the tarsal metatarsal articulations and the talonavicular joint. Small accessory ossicle seen abutting the posteromedial margins of the right navicular bone. No focal lytic changes are appreciated or periosteal reaction to suggest definite osteomyelitis. Clinically correlate. Soft tissue edema is suggested related to the great toe distally. At the left foot, fusion of the 1st metatarsophalangeal joint is appreciated with no acute fracture, subluxation or dislocation identified throughout. Degenerative changes are similar throughout the interphalangeal joints though less so at the left talonavicular joint when compared to the right. Tarsal metatarsal articulations appear degenerated with potential fusion at the middle cuneiform articulation with the 2nd and/or 3rd metatarsal bases. Diffuse osteopenia suggests osteoporosis bilaterally. IMPRESSION: 1. 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 No interval acute fracture, subluxation or dislocation. No definitive radiographic sign of osteomyelitis in the interval at the great toe. Clinically correlate further. MRI is available follow-up if clinically warranted. 2. Fusion of the 1st metatarsal phalangeal joint left foot without acute fracture or dislocation appreciated. 3. Degenerative changes bilateral forefeet greater than hind and midfoot regions.
[2018-01-12] MEDS ORDERED: Sod Polystyrene Sulf 15 gm/60 ml Susp PO ONE (14:36)
[2018-01-12 15:51] LABS: CALCIUM 5.9 mg/dL (8.4-10.2)
[2018-01-13 05:29] LABS: MEAN CELL VOLUME 89.3 fl (80.0-94.0); MEAN CORPUSCULAR HEMOGLOBIN 30.5 pg (27.0-31.0); MEAN CORPUSCULAR HGB CONC 34.1 g/dL (33.0-37.0); RBC 2.14 Mil/uL (4.40-5.90); RED CELL DISTRIBUTION WIDTH 16.1 % (11.5-14.5)
[2018-01-13 05:50] LABS: ALB/GLOB RATIO 0.7 (1.0-2.1); ALBUMIN 1.9 g/dL (3.5-5.0)
[2018-01-13 05:57] LABS: WHITE BLOOD COUNT 0.6 K/uL (4.8-10.8)
[2018-01-13 05:58] LABS: HEMOGLOBIN 6.5 g/dL (12.0-18.0)
[2018-01-13] MEDS: Meropenem 500 MG in Sodium Chloride 0.9% 100 ML IVPB SCH ×2 (08:22→20:00)
--- NOTE | 2018-01-13 08:40 | CON ---
DATE: 01/12/2018 LOCATION: ICU, room 424. HISTORY OF PRESENT ILLNESS: This is a 77-year-old male with known history of myelodysplastic syndrome with ongoing chemotherapy and developed supervening marked intractable vomiting episodes for the last 3 days at the [facility] and was transferred here for admission and further evaluation and management and is being referred also now for endocrine evaluation because of diabetic ketoacidosis and dehydration and further diabetic management. PAST MEDICAL HISTORY: He has an apparent history of type 2 diabetes, but currently not taking any kind of oral hypoglycemic therapy as noted; history of hypertensive cardiovascular disease and dyslipidemia; history of diabetic retinopathy, polyneuropathy and nephropathy with chronic kidney disease and progressively worsening renal insufficiency as noted; history of coronary artery disease and severe peripheral arterial disease and vasculopathy. He also has significant history of a chronic right great toe ulceration with underlying osteomyelitis with previous IV antibiotic management as noted. History of myelodysplastic syndrome diagnosed recently and followed closely by Dr. Pace whereupon he was started on medication as noted. History of hypertension and dyslipidemia. He also had a recent pancytopenia and is being followed closely for the aforementioned history of diffuse osteoarthritis and intercurrent bacteremia with previous admission for a perirectal abscess as noted. He also has severe peripheral arterial disease and vasculopathy with chronic lower extremity neuropathic ulcerations. FAMILY HISTORY: Positive for diabetes and hypertension. SOCIAL HISTORY: The patient has a supportive family. No known substance use. REVIEW OF SYSTEMS: As mentioned above, admits to generalized body weakness with easy fatigability and tiredness and increasing hypersomnolence and lethargy. He also admits to bifrontal headaches and visual blurring. No chest pains or palpitations, but admits to progressive shortness of breath initially on exertion and then at rest. He also admits to severe bouts of nausea, dyspepsia and intractable vomiting episodes, worse in the last 2 to 3 days prior to admission. He also admits to suboptimal oral intake with persistent nausea and dyspepsia and habitual constipation. PHYSICAL EXAMINATION: GENERAL: This is an male, in no apparent distress. VITAL SIGNS: Blood pressure of 140/80, pulse of 100 beats per minute and regular, temperature 99, respirations 20, height is 5 feet 2 inches, weight is 110 pounds. HEENT: Head normocephalic. Eyes anicteric with pink conjunctivae. Funduscopy not possible at this time. Ears, nose, and throat, otherwise, normal. NECK: Supple. Thyroid gland is normal in size. No carotid bruits or any cervical adenopathy. CARDIOPULMONARY: Some adynamic precordium. S1, S2 is rapid and regular. LUNGS: Clear to auscultation. ABDOMEN: Flat, soft with positive bowel sounds. EXTREMITIES: There is a nonhealing ulceration in the right hallux area with no active exudate. Pulses are diminished peripherally. LABORATORY DATA: Hematology, WBC is 0.9, hemoglobin of 9.1, hematocrit of 26, MCV 89, platelets 16,000. The chemistry showed a BUN of 186, sodium 139, potassium 5.5, chloride 113, CO2 is 13, glucose of 79, and creatinine is 4.9. The subsequent glucose levels have been low normal, ranging from 85 to 96 mg/dL. The latest one tonight is 126 mg/dL. ASSESSMENT: This is a 77-year-old male with myelodysplastic syndrome and severe pancytopenia, presenting here with intractable vomiting episodes and severe nausea, dyspepsia, and upper abdominal pain related to the recent chemotherapy as initiated in the shelter as noted. He also has significant history of type 2 diabetes, currently off oral hypoglycemic therapy with diabetic microvascular complications of retinopathy, polyneuropathy, and nephropathy with advanced azotemia and end-stage renal disease at this time. He also has diabetic macrovascular complications of coronary artery disease and peripheral arterial disease and vasculopathy with a nonhealing right hallux chronic neuropathic ulceration with underlying osteomyelitis. PLAN OF MANAGEMENT: As discussed with the nursing staff, the imperative need to switch over his DKA algorithm to the clinical pathway to obviate extremes of glycemic fluctuations, especially with underlying advanced azotemia with minimal insulin requirements, thereof. We will definitely be needing emergent hemodialysis because of severe and marked azotemia with underlying metabolic acidosis contributing to the aforementioned diabetic ketoacidosis which is really more metabolically improved by the advanced azotemia and end-stage renal disease. We will obtain serial chemistries and supplement accordingly needed. Hemoglobin A1c will be done to confirm his prior glycemic control and baseline thyroid function studies and parathyroid hormone intact level will be obtained to screen for secondary hyperparathyroidism. We will modify the coverage scale to obviate hypoglycemia and detailed orders have been given. We will obtain serial chemistries and supplement accordingly needed. We will continue the insulin drip infusion until the CO2 is at least above 18 as noted. We will follow. Umu Whitney MD
--- NOTE | 2018-01-13 09:02 | CP.PCM.PN ---
Subjective - Date & Time of Evaluation Date of Evaluation: 01/13/18 Time of Evaluation: 09:02 - Subjective Subjective: Podiatry Progress Note - Dr. Ledezma 77M seen and examined in ICU concerning right hallux gangrene and left heel deep tissue injury. Patient weak, hematemesis noted. NAD Family present at bedside. No acute events overnight. Patient reports continued moderate pain in right great toe and in left heel. Pt apprehensive for dressing change. Dressings to bilateral LE remain clean/dry/intact. Multipodus boots present bilaterally. Denies N/V/D, no f/c. Offers no other pedal complaints. Objective - Vital Signs/Intake and Output Vital Signs (last 24 hours): Temp Pulse Resp BP Pulse Ox 98.1 F 104 H 22 114/100 H 98 01/13/18 08:00 01/13/18 08:00 01/13/18 08:00 01/13/18 08:00 01/13/18 08:00 Intake and Output: 01/13/18 01/13/18 06:59 18:59 Intake Total 1850 354 Output Total 850 Balance 1000 354 - Medications Medications: Current Medications Dextrose (Dextrose 50% Inj) 0 ml IV STAT PRN; Protocol PRN Reason: Hypoglycemia Protocol Dextrose (Glutose 15) 0 gm PO ONCE PRN; Protocol PRN Reason: Hypoglycemia Protocol Ferrous Sulfate (Feosol) 325 mg PO TID [place] Last Admin: 01/13/18 08:40 Dose: Not Given Gabapentin (Neurontin) 300 mg PO TID [place] Last Admin: 01/13/18 08:40 Dose: Not Given Glucagon (Glucagen Diagnostic Kit) 0 mg IM STAT PRN; Protocol PRN Reason: Hypoglycemia Protocol Meropenem 500 mg/ Sodium (Chloride) 100 mls @ 100 mls/hr IVPB Q12 [place] PRN Reason: Protocol Last Admin: 01/13/18 08:22 Dose: 100 mls/hr Insulin Human Regular 100 (units/ Sodium Chloride) 101 mls @ 2.02 mls/hr IV .Q24H [place]; 2 UNITS/HR PRN Reason: Protocol Last Titration: 01/13/18 03:00 Dose: 2 units/hr, 2.02 mls/hr Ondansetron HCl (Zofran Inj) 4 mg IVP Q6 PRN PRN Reason: Nausea/Vomiting Last Admin: 01/13/18 05:38 Dose: 4 mg Pantoprazole Sodium (Protonix Inj) 40 mg IVP DAILY [place] Last Admin: 01/13/18 08:22 Dose: 40 mg - Labs Labs: 01/13/18 04:12 01/13/18 04:12 PT 12.5 Seconds (9.8-13.1) 01/11/18 13:37 INR 1.1 (0.9-1.2) 01/11/18 13:37 APTT 33.6 Seconds (25.6-37.1) 01/11/18 13:37 - Constitutional Appears: Well, Non-toxic, No Acute Distress - Extremities Exam Additional comments: Lower extremities focused exam: Vasc: DP non palpable b/l, D/P faintly palpable 1/4 b/l. Temp gradient warm to cool. Cap refill delayed about 4 sec. No edema noted b/l. Neuro: Protective sensation diminished, Gross sensation intact. Derm: Right hallux distal 1/4 is black in color and sharply dematked surrounded by a narrow zone of purple discoloration. the discolored area is 2 cm X 1 cm. Left plantar heel discolored with dark dicoloration black and purple but no open lesions. It measures 4 cm X 3 cm. MSK: Muscle power 4/5 in all groups b/l. Diffuse arthritic changes in all major joints of foot and ankle b/l. Pain on palpation of the right hallux and left heel R > L. - Neurological Exam Neurological Exam: Alert, Awake, Oriented x3 - Psychiatric Exam Psychiatric exam: Normal Affect, Normal Mood Assessment and Plan - Assessment and Plan (Free Text) Assessment: 77M with right hallux dry gangrene and left heel deep tissue injury Plan: Patient seen and evaluated Discussed with attending, Dr. Ledezma Neutropenic precautions f/u vascular recs Continue local wound care - DSD bilateral LE Continue multipodus boots at all times in bed Pain control - Tylenol, Lidoderm TD Podiatry will continue to follow
--- NOTE | 2018-01-13 09:38 | CP.CCUPN ---
CCU Subjective - Physician Review Events Since Last Encounter (Free Text): 01/13/18 09:34 Pt is awake, alert, no sob, BP stable, but continue to feel weak, platelets are dropping now only 6 K, Hb also dropped, . Discussed with industrial waste treatment technician about the need for dialysis and it was decided not to start HD at this point, as patient is not volume overloaded , has no resp distress and his K is also in acceptable range ( 5.2 ) , metabolic acidosis can be corrected by bicarb drip which will be started. In view of dropping Hb and very low platlets count, will avoid any intervention , including dialysis catheter insertion, unless absolutely necessary. CCU Objective - Vital Signs / Intake & Output Vital Signs (Last 4 hours): Vital Signs Temp Pulse Resp BP Pulse Ox 01/13/18 08:00 98.1 F 104 H 22 114/100 H 98 01/13/18 06:00 93 H 15 112/47 L 100 Intake and Output (Last 8hrs): Intake & Output 01/12/18 01/13/18 01/13/18 22:59 06:59 14:59 Intake Total 1175 1325 354 Output Total 850 Balance 1175 475 354 Weight 116 lb 3.2 oz Intake: IV 1175 1225 350 Intake, Piggyback 100 4 Output: Urine 800 Urethral (Henriquez) 800 Emesis 50 Other: # Bowel Movements 1 - Physical Exam Narrative Physical Exam (Free Text): 01/13/18 09:38 P/E Neck: No JVD Lungs: No ronchi, crackles abdomen: soft, non-tender Ext: no edema Heart: No gallop Head: Positive for: Atraumatic, Normocephalic Extroacular Muscles: Positive for: EOMI Mouth: Positive for: Dry Nose (Internal): Positive for: Normal Inspection Neck: Positive for: Normal Range of Motion Respiratory/Chest: Positive for: Good Air Exchange Cardiovascular: Positive for: Regular Rate and Rhythm Abdomen: Negative for: Tenderness, Distention Upper Extremity: Positive for: Normal Inspection Lower Extremity: Positive for: Normal Inspection Neurological: Positive for: Speech Normal Psychiatric: Positive for: Alert, Oriented x 3 - Medications Active Medications: Active Medications Generic Name Dose Route Start Last Admin Trade Name Freq PRN Reason Stop Dose Admin Dextrose 0 ml 01/11/18 14:32 Dextrose 50% Inj IV STAT PRN Hypoglycemia Protocol Protocol Dextrose 0 gm 01/11/18 14:32 Glutose 15 PO ONCE PRN Hypoglycemia Protocol Protocol Ferrous Sulfate 325 mg 01/12/18 09:00 01/13/18 08:40 Feosol PO Not Given TID CAM[place] Gabapentin 300 mg 01/12/18 09:00 01/13/18 08:40 Neurontin PO Not Given TID [place] Glucagon 0 mg 01/11/18 14:32 Glucagen Diagnostic Kit IM STAT PRN Hypoglycemia Protocol Protocol Meropenem 500 mg/ Sodium 100 mls @ 100 mls/hr 01/11/18 17:30 01/13/18 08:22 Chloride IVPB 100 mls/hr Q12 [place] Administration Protocol Insulin Human Regular 100 101 mls @ 2.02 mls/hr 01/12/18 17:01 01/13/18 03:00 units/ Sodium Chloride IV 2 units/hr .Q24H [place] 2.02 mls/hr Protocol Titration 2 UNITS/HR Sodium Bicarbonate 100 ml/ 1,100 mls @ 100 mls/hr 01/13/18 09:30 Sodium Chloride IV 01/14/18 09:17 .Q11H [place] Ondansetron HCl 4 mg 01/12/18 09:52 01/13/18 05:38 Zofran Inj IVP 4 mg Q6 PRN Administration Nausea/Vomiting Pantoprazole Sodium 40 mg 01/13/18 21:00 Protonix Inj IVP Q12 CMAILLE - Patient Studies Lab Studies: Microbiology Studies 01/11/18 14:05 Blood Culture - Preliminary Blood NO GROWTH AFTER 24 HOURS 01/11/18 14:44 Blood Culture - Preliminary Blood NO GROWTH AFTER 24 HOURS 01/11/18 12:30 Urine Culture - Final Urine No Growth (<1,000 CFU/ML) Lab Studies 01/13/18 01/13/18 01/13/18 Range/Units 09:01 08:17 07:45 WBC (4.8-10.8) K/uL RBC (4.40-5.90) Mil/uL Hgb (12.0-18.0) g/dL Hct (35.0-51.0) % MCV (80.0-94.0) fl MCH (27.0-31.0) pg MCHC (33.0-37.0) g/dL RDW (11.5-14.5) % Plt Count (130-400) K/uL Sodium (132-148) mmol/l Potassium (3.6-5.0) MMOL/L Chloride (98-107) mmol/L Carbon Dioxide (22-30) mmol/L Anion Gap (10-20) BUN (9-20) mg/dl Creatinine (0.8-1.5) mg/dl Est GFR ( Amer) Est GFR (Non-Af Amer) POC Glucose (mg/dL) 102 148 H (65-110) mg/dL Random Glucose (75-110) mg/dL Calcium (8.4-10.2) mg/dL Phosphorus (2.5-4.5) mg/dl Total Bilirubin (0.2-1.3) mg/dl AST (17-59) U/L ALT (21-72) U/L Alkaline Phosphatase (38-126) U/L Total Protein (6.3-8.2) G/DL Albumin (3.5-5.0) g/dL Globulin (2.2-3.9) gm/dL Albumin/Globulin Ratio (1.0-2.1) TSH 3rd Generation (0.46-4.68) mIU/ML Blood Type O POSITIVE Antibody Screen Negative Crossmatch See Detail BBK History Checked Patient has bt 01/13/18 01/13/18 01/13/18 Range/Units 06:42 05:59 05:01 WBC (4.8-10.8) K/uL RBC (4.40-5.90) Mil/uL Hgb (12.0-18.0) g/dL Hct (35.0-51.0) % MCV (80.0-94.0) fl MCH (27.0-31.0) pg MCHC (33.0-37.0) g/dL RDW (11.5-14.5) % Plt Count (130-400) K/uL Sodium (132-148) mmol/l Potassium (3.6-5.0) MMOL/L Chloride (98-107) mmol/L Carbon Dioxide (22-30) mmol/L Anion Gap (10-20) BUN (9-20) mg/dl Creatinine (0.8-1.5) mg/dl Est GFR ( Amer) Est GFR (Non-Af Amer) POC Glucose (mg/dL) 165 H 176 H 172 H (65-110) mg/dL Random Glucose (75-110) mg/dL Calcium (8.4-10.2) mg/dL Phosphorus (2.5-4.5) mg/dl Total Bilirubin (0.2-1.3) mg/dl AST (17-59) U/L ALT (21-72) U/L Alkaline Phosphatase (38-126) U/L Total Protein (6.3-8.2) G/DL Albumin (3.5-5.0) g/dL Globulin (2.2-3.9) gm/dL Albumin/Globulin Ratio (1.0-2.1) TSH 3rd Generation (0.46-4.68) mIU/ML Blood Type Antibody Screen Crossmatch BBK History Checked 01/13/18 01/13/18 01/13/18 Range/Units 04:12 04:12 04:05 WBC 0.6 L* (4.8-10.8) K/uL RBC 2.14 L (4.40-5.90) Mil/uL Hgb 6.5 L* D (12.0-18.0) g/dL Hct 19.1 L (35.0-51.0) % MCV 89.3 (80.0-94.0) fl MCH 30.5 (27.0-31.0) pg MCHC 34.1 (33.0-37.0) g/dL RDW 16.1 H (11.5-14.5) % Plt Count 8 L* D (130-400) K/uL Sodium 140 (132-148) mmol/l Potassium 5.2 H (3.6-5.0) MMOL/L Chloride 114 H (98-107) mmol/L Carbon Dioxide 9 L* D (22-30) mmol/L Anion Gap 22 H (10-20) BUN 175 H* (9-20) mg/dl Creatinine 4.6 H (0.8-1.5) mg/dl Est GFR ( Amer) 15 Est GFR (Non-Af Amer) 12 POC Glucose (mg/dL) 184 H (65-110) mg/dL Random Glucose 176 H (75-110) mg/dL Calcium 6.0 L* (8.4-10.2) mg/dL Phosphorus 7.2 H (2.5-4.5) mg/dl Total Bilirubin 0.4 (0.2-1.3) mg/dl AST 12 L (17-59) U/L ALT 20 L D (21-72) U/L Alkaline Phosphatase 39 (38-126) U/L Total Protein 4.6 L (6.3-8.2) G/DL Albumin 1.9 L (3.5-5.0) g/dL Globulin 2.7 (2.2-3.9) gm/dL Albumin/Globulin Ratio 0.7 L (1.0-2.1) TSH 3rd Generation 3.69 (0.46-4.68) mIU/ML Blood Type Antibody Screen Crossmatch BBK History Checked 01/13/18 01/13/18 01/13/18 Range/Units 03:02 01:54 00:54 WBC (4.8-10.8) K/uL RBC (4.40-5.90) Mil/uL Hgb (12.0-18.0) g/dL Hct (35.0-51.0) % MCV (80.0-94.0) fl MCH (27.0-31.0) pg MCHC (33.0-37.0) g/dL RDW (11.5-14.5) % Plt Count (130-400) K/uL Sodium (132-148) mmol/l Potassium (3.6-5.0) MMOL/L Chloride (98-107) mmol/L Carbon Dioxide (22-30) mmol/L Anion Gap (10-20) BUN (9-20) mg/dl Creatinine (0.8-1.5) mg/dl Est GFR ( Amer) Est GFR (Non-Af Amer) POC Glucose (mg/dL) 190 H 233 H 183 H (65-110) mg/dL Random Glucose (75-110) mg/dL Calcium (8.4-10.2) mg/dL Phosphorus (2.5-4.5) mg/dl Total Bilirubin (0.2-1.3) mg/dl AST (17-59) U/L ALT (21-72) U/L Alkaline Phosphatase (38-126) U/L Total Protein (6.3-8.2) G/DL Albumin (3.5-5.0) g/dL Globulin (2.2-3.9) gm/dL Albumin/Globulin Ratio (1.0-2.1) TSH 3rd Generation (0.46-4.68) mIU/ML Blood Type Antibody Screen Crossmatch BBK History Checked 01/12/18 01/12/18 01/12/18 Range/Units 23:56 23:02 22:03 WBC (4.8-10.8) K/uL RBC (4.40-5.90) Mil/uL Hgb (12.0-18.0) g/dL Hct (35.0-51.0) % MCV (80.0-94.0) fl MCH (27.0-31.0) pg MCHC (33.0-37.0) g/dL RDW (11.5-14.5) % Plt Count (130-400) K/uL Sodium (132-148) mmol/l Potassium (3.6-5.0) MMOL/L Chloride (98-107) mmol/L Carbon Dioxide (22-30) mmol/L Anion Gap (10-20) BUN (9-20) mg/dl Creatinine (0.8-1.5) mg/dl Est GFR ( Amer) Est GFR (Non-Af Amer) POC Glucose (mg/dL) 131 H 126 H 147 H (65-110) mg/dL Random Glucose (75-110) mg/dL Calcium (8.4-10.2) mg/dL Phosphorus (2.5-4.5) mg/dl Total Bilirubin (0.2-1.3) mg/dl AST (17-59) U/L ALT (21-72) U/L Alkaline Phosphatase (38-126) U/L Total Protein (6.3-8.2) G/DL Albumin (3.5-5.0) g/dL Globulin (2.2-3.9) gm/dL Albumin/Globulin Ratio (1.0-2.1) TSH 3rd Generation (0.46-4.68) mIU/ML Blood Type Antibody Screen Crossmatch BBK History Checked 01/12/18 01/12/18 01/12/18 Range/Units 21:02 20:12 18:58 WBC (4.8-10.8) K/uL RBC (4.40-5.90) Mil/uL Hgb (12.0-18.0) g/dL Hct (35.0-51.0) % MCV (80.0-94.0) fl MCH (27.0-31.0) pg MCHC (33.0-37.0) g/dL RDW (11.5-14.5) % Plt Count (130-400) K/uL Sodium (132-148) mmol/l Potassium (3.6-5.0) MMOL/L Chloride (98-107) mmol/L Carbon Dioxide (22-30) mmol/L Anion Gap (10-20) BUN (9-20) mg/dl Creatinine (0.8-1.5) mg/dl Est GFR ( Amer) Est GFR (Non-Af Amer) POC Glucose (mg/dL) 172 H 170 H 134 H (65-110) mg/dL Random Glucose (75-110) mg/dL Calcium (8.4-10.2) mg/dL Phosphorus (2.5-4.5) mg/dl Total Bilirubin (0.2-1.3) mg/dl AST (17-59) U/L ALT (21-72) U/L Alkaline Phosphatase (38-126) U/L Total Protein (6.3-8.2) G/DL Albumin (3.5-5.0) g/dL Globulin (2.2-3.9) gm/dL Albumin/Globulin Ratio (1.0-2.1) TSH 3rd Generation (0.46-4.68) mIU/ML Blood Type Antibody Screen Crossmatch BBK History Checked 01/12/18 01/12/18 01/12/18 Range/Units 18:12 17:02 16:03 WBC (4.8-10.8) K/uL RBC (4.40-5.90) Mil/uL Hgb (12.0-18.0) g/dL Hct (35.0-51.0) % MCV (80.0-94.0) fl MCH (27.0-31.0) pg MCHC (33.0-37.0) g/dL RDW (11.5-14.5) % Plt Count (130-400) K/uL Sodium (132-148) mmol/l Potassium (3.6-5.0) MMOL/L Chloride (98-107) mmol/L Carbon Dioxide (22-30) mmol/L Anion Gap (10-20) BUN (9-20) mg/dl Creatinine (0.8-1.5) mg/dl Est GFR ( Amer) Est GFR (Non-Af Amer) POC Glucose (mg/dL) 104 96 88 (65-110) mg/dL Random Glucose (75-110) mg/dL Calcium (8.4-10.2) mg/dL Phosphorus (2.5-4.5) mg/dl Total Bilirubin (0.2-1.3) mg/dl AST (17-59) U/L ALT (21-72) U/L Alkaline Phosphatase (38-126) U/L Total Protein (6.3-8.2) G/DL Albumin (3.5-5.0) g/dL Globulin (2.2-3.9) gm/dL Albumin/Globulin Ratio (1.0-2.1) TSH 3rd Generation (0.46-4.68) mIU/ML Blood Type Antibody Screen Crossmatch BBK History Checked 01/12/18 01/12/18 01/12/18 Range/Units 14:59 14:32 14:13 WBC (4.8-10.8) K/uL RBC (4.40-5.90) Mil/uL Hgb (12.0-18.0) g/dL Hct (35.0-51.0) % MCV (80.0-94.0) fl MCH (27.0-31.0) pg MCHC (33.0-37.0) g/dL RDW (11.5-14.5) % Plt Count (130-400) K/uL Sodium 139 (132-148) mmol/l Potassium 5.5 H (3.6-5.0) MMOL/L Chloride 113 H (98-107) mmol/L Carbon Dioxide 13 L (22-30) mmol/L Anion Gap 19 (10-20) BUN 186 H* (9-20) mg/dl Creatinine 4.9 H (0.8-1.5) mg/dl Est GFR ( Amer) 14 Est GFR (Non-Af Amer) 12 POC Glucose (mg/dL) 85 96 (65-110) mg/dL Random Glucose 79 (75-110) mg/dL Calcium 5.9 L* (8.4-10.2) mg/dL Phosphorus (2.5-4.5) mg/dl Total Bilirubin (0.2-1.3) mg/dl AST (17-59) U/L ALT (21-72) U/L Alkaline Phosphatase (38-126) U/L Total Protein (6.3-8.2) G/DL Albumin (3.5-5.0) g/dL Globulin (2.2-3.9) gm/dL Albumin/Globulin Ratio (1.0-2.1) TSH 3rd Generation (0.46-4.68) mIU/ML Blood Type Antibody Screen Crossmatch BBK History Checked 01/12/18 01/12/18 01/12/18 Range/Units 13:02 12:14 11:20 WBC (4.8-10.8) K/uL RBC (4.40-5.90) Mil/uL Hgb (12.0-18.0) g/dL Hct (35.0-51.0) % MCV (80.0-94.0) fl MCH (27.0-31.0) pg MCHC (33.0-37.0) g/dL RDW (11.5-14.5) % Plt Count (130-400) K/uL Sodium (132-148) mmol/l Potassium (3.6-5.0) MMOL/L Chloride (98-107) mmol/L Carbon Dioxide (22-30) mmol/L Anion Gap (10-20) BUN (9-20) mg/dl Creatinine (0.8-1.5) mg/dl Est GFR ( Amer) Est GFR (Non-Af Amer) POC Glucose (mg/dL) 90 92 104 (65-110) mg/dL Random Glucose (75-110) mg/dL Calcium (8.4-10.2) mg/dL Phosphorus (2.5-4.5) mg/dl Total Bilirubin (0.2-1.3) mg/dl AST (17-59) U/L ALT (21-72) U/L Alkaline Phosphatase (38-126) U/L Total Protein (6.3-8.2) G/DL Albumin (3.5-5.0) g/dL Globulin (2.2-3.9) gm/dL Albumin/Globulin Ratio (1.0-2.1) TSH 3rd Generation (0.46-4.68) mIU/ML Blood Type Antibody Screen Crossmatch BBK History Checked 01/12/18 01/12/18 01/12/18 Range/Units 10:02 10:00 04:00 WBC (4.8-10.8) K/uL RBC (4.40-5.90) Mil/uL Hgb (12.0-18.0) g/dL Hct (35.0-51.0) % MCV (80.0-94.0) fl MCH (27.0-31.0) pg MCHC (33.0-37.0) g/dL RDW (11.5-14.5) % Plt Count (130-400) K/uL Sodium 140 (132-148) mmol/l Potassium 5.9 H 6.3 H* (3.6-5.0) MMOL/L Chloride 112 H (98-107) mmol/L Carbon Dioxide 11 L* D 6 L* D (22-30) mmol/L Anion Gap 23 H (10-20) BUN 200 H* 201 H* (9-20) mg/dl Creatinine 5.0 H (0.8-1.5) mg/dl Est GFR ( Amer) 14 Est GFR (Non-Af Amer) 11 POC Glucose (mg/dL) 134 H (65-110) mg/dL Random Glucose 128 H (75-110) mg/dL Calcium 5.8 L* (8.4-10.2) mg/dL Phosphorus (2.5-4.5) mg/dl Total Bilirubin (0.2-1.3) mg/dl AST (17-59) U/L ALT (21-72) U/L Alkaline Phosphatase (38-126) U/L Total Protein (6.3-8.2) G/DL Albumin (3.5-5.0) g/dL Globulin (2.2-3.9) gm/dL Albumin/Globulin Ratio (1.0-2.1) TSH 3rd Generation (0.46-4.68) mIU/ML Blood Type Antibody Screen Crossmatch BBK History Checked Laboratory Results - last 24 hr 01/12/18 01/12/18 01/12/18 04:00 10:00 10:02 WBC RBC Hgb Hct MCV MCH MCHC RDW Plt Count Sodium 140 Potassium 6.3 H* 5.9 H Chloride 112 H Carbon Dioxide 6 L* D 11 L* D Anion Gap 23 H BUN 201 H* 200 H* Creatinine 5.0 H Est GFR ( Amer) 14 Est GFR (Non-Af Amer) 11 POC Glucose (mg/dL) 134 H Random Glucose 128 H Calcium 5.8 L* Phosphorus Total Bilirubin AST ALT Alkaline Phosphatase Total Protein Albumin Globulin Albumin/Globulin Ratio TSH 3rd Generation Blood Type Antibody Screen Crossmatch BBK History Checked 01/12/18 01/12/18 01/12/18 11:20 12:14 13:02 WBC RBC Hgb Hct MCV MCH MCHC RDW Plt Count Sodium Potassium Chloride Carbon Dioxide Anion Gap BUN Creatinine Est GFR ( Amer) Est GFR (Non-Af Amer) POC Glucose (mg/dL) 104 92 90 Random Glucose Calcium Phosphorus Total Bilirubin AST ALT Alkaline Phosphatase Total Protein Albumin Globulin Albumin/Globulin Ratio TSH 3rd Generation Blood Type Antibody Screen Crossmatch BBK History Checked 01/12/18 01/12/18 01/12/18 14:13 14:32 14:59 WBC RBC Hgb Hct MCV MCH MCHC RDW Plt Count Sodium 139 Potassium 5.5 H Chloride 113 H Carbon Dioxide 13 L Anion Gap 19 BUN 186 H* Creatinine 4.9 H Est GFR ( Amer) 14 Est GFR (Non-Af Amer) 12 POC Glucose (mg/dL) 96 85 Random Glucose 79 Calcium 5.9 L* Phosphorus Total Bilirubin AST ALT Alkaline Phosphatase Total Protein Albumin Globulin Albumin/Globulin Ratio TSH 3rd Generation Blood Type Antibody Screen Crossmatch BBK History Checked 01/12/18 01/12/18 01/12/18 16:03 17:02 18:12 WBC RBC Hgb Hct MCV MCH MCHC RDW Plt Count Sodium Potassium Chloride Carbon Dioxide Anion Gap BUN Creatinine Est GFR ( Amer) Est GFR (Non-Af Amer) POC Glucose (mg/dL) 88 96 104 Random Glucose Calcium Phosphorus Total Bilirubin AST ALT Alkaline Phosphatase Total Protein Albumin Globulin Albumin/Globulin Ratio TSH 3rd Generation Blood Type Antibody Screen Crossmatch BBK History Checked 01/12/18 01/12/18 01/12/18 18:58 20:12 21:02 WBC RBC Hgb Hct MCV MCH MCHC RDW Plt Count Sodium Potassium Chloride Carbon Dioxide Anion Gap BUN Creatinine Est GFR ( Amer) Est GFR (Non-Af Amer) POC Glucose (mg/dL) 134 H 170 H 172 H Random Glucose Calcium Phosphorus Total Bilirubin AST ALT Alkaline Phosphatase Total Protein Albumin Globulin Albumin/Globulin Ratio TSH 3rd Generation Blood Type Antibody Screen Crossmatch BBK History Checked 01/12/18 01/12/18 01/12/18 22:03 23:02 23:56 WBC RBC Hgb Hct MCV MCH MCHC RDW Plt Count Sodium Potassium Chloride Carbon Dioxide Anion Gap BUN Creatinine Est GFR ( Amer) Est GFR (Non-Af Amer) POC Glucose (mg/dL) 147 H 126 H 131 H Random Glucose Calcium Phosphorus Total Bilirubin AST ALT Alkaline Phosphatase Total Protein Albumin Globulin Albumin/Globulin Ratio [facility] 3rd Generation Blood Type Antibody Screen Crossmatch BBK History Checked 01/13/18 01/13/18 01/13/18 00:54 01:54 03:02 WBC RBC Hgb Hct MCV MCH MCHC RDW Plt Count Sodium Potassium Chloride Carbon Dioxide Anion Gap BUN Creatinine Est GFR ( Amer) Est GFR (Non-Af Amer) POC Glucose (mg/dL) 183 H 233 H 190 H Random Glucose Calcium Phosphorus Total Bilirubin AST ALT Alkaline Phosphatase Total Protein Albumin Globulin Albumin/Globulin Ratio TSH 3rd Generation Blood Type Antibody Screen Crossmatch BBK History Checked 01/13/18 01/13/18 01/13/18 04:05 04:12 04:12 WBC 0.6 L* RBC 2.14 L Hgb 6.5 L* D Hct 19.1 L MCV 89.3 MCH 30.5 MCHC 34.1 RDW 16.1 H Plt Count 8 L* D Sodium 140 Potassium 5.2 H Chloride 114 H Carbon Dioxide 9 L* D Anion Gap 22 H BUN 175 H* Creatinine 4.6 H Est GFR ( Amer) 15 Est GFR (Non-Af Amer) 12 POC Glucose (mg/dL) 184 H Random Glucose 176 H Calcium 6.0 L* Phosphorus 7.2 H Total Bilirubin 0.4 AST 12 L ALT 20 L D Alkaline Phosphatase 39 Total Protein 4.6 L Albumin 1.9 L Globulin 2.7 Albumin/Globulin Ratio 0.7 L TSH 3rd Generation 3.69 Blood Type Antibody Screen Crossmatch BBK History Checked 01/13/18 01/13/18 01/13/18 05:01 05:59 06:42 WBC RBC Hgb Hct MCV MCH MCHC RDW Plt Count Sodium Potassium Chloride Carbon Dioxide Anion Gap BUN Creatinine Est GFR ( Amer) Est GFR (Non-Af Amer) POC Glucose (mg/dL) 172 H 176 H 165 H Random Glucose Calcium Phosphorus Total Bilirubin AST ALT Alkaline Phosphatase Total Protein Albumin Globulin Albumin/Globulin Ratio TSH 3rd Generation Blood Type Antibody Screen Crossmatch BBK History Checked 01/13/18 01/13/18 01/13/18 07:45 08:17 09:01 WBC RBC Hgb Hct MCV MCH MCHC RDW Plt Count Sodium Potassium Chloride Carbon Dioxide Anion Gap BUN Creatinine Est GFR ( Amer) Est GFR (Non-Af Amer) POC Glucose (mg/dL) 148 H 102 Random Glucose Calcium Phosphorus Total Bilirubin AST ALT Alkaline Phosphatase Total Protein Albumin Globulin Albumin/Globulin Ratio TSH 3rd Generation Blood Type O POSITIVE Antibody Screen Negative Crossmatch See Detail BBK History Checked Patient has bt Fingerstick Blood Sugar Results: 102 Critical Care Progress Note - Nutrition Nutrition: Nutrition Category Date Time Status Consistent Carbohydrate [DIET] Diets 01/13/18 Breakfast Active Assessment/Plan - Assessment and Plan (Free Text) Assessment: >Diabetic Keto-Acidosis -Insulin drip -IV D5W1/2NS at 175mL/hr after bolus. -Check sugar levels Q2H -Monitor Bicarbonate and potassium levels -Hypoglycemia protocol -Endocrinology consult, Dr Whitney. >Acute Kidney Injury Mild hyperkalemia ( 5.2 ) and metabolic acidosis -Persistent elevated BUN/Creat -Possibly due to dehydration/acute on CKD and also due to saline infusion d/w industrial waste treatment technician, no indication for urgent dialysis, will continue to monitor, dialysis will be started if patient developed hyprekalemia > 6.0 or developed pulm edema, will continue hydration, changed to bicarb drip to keep potassium from rising and to treat metabolic acidosis. -Nephrology: Dr Norman De La Vega >Emesis, abdominal pain -CT scan: Mac colitis, possible cystitis and b/l lower pneumonia. -ID on consult, Dr Bright -Meropenem was initiated as per ID. >Pancytopenia -Secondary to MDS. very low count today 01/13, only 6K, platets transfusion ordered. -On Iron supplement -Granix and Procrit. 1x dose. -Hematology on board, Dr Pace >Myelodysplastic Syndrome -Hematology on consult, Katelynn. 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 -Podiatry on consult: X ray and Vascular Surgery Consult. >DVT prophylaxis -SCD's
--- NOTE | 2018-01-13 10:06 | CP.PCM.PN ---
Subjective - Date & Time of Evaluation Date of Evaluation: 01/13/18 Time of Evaluation: 08:15 - Subjective Subjective: Pt is awake, alert. Patient weak and in pain. No SOB. WBC, RBC and Plt dropping. Hematochezia and hemetemesis noted. As per demurrage agent:not to start HD at this point, as patient is not volume overloaded , has no resp distress and his K is also in acceptable range ( 5.2 ) , metabolic acidosis can be corrected by bicarb drip which will be started. In view of dropping Hb and very low platlets count, will avoid any intervention , including dialysis catheter insertion, unless absolutely necessary. As per Dr Pace: Will start 2 PRBC, 2 FFPs and 1 Plt. Objective - Vital Signs/Intake and Output Vital Signs (last 24 hours): Temp Pulse Resp BP Pulse Ox 97.7 F 107 H 18 135/50 L 98 01/13/18 09:56 01/13/18 09:56 01/13/18 09:56 01/13/18 09:56 01/13/18 08:00 Intake and Output: 01/13/18 01/13/18 06:59 18:59 Intake Total 1850 354 Output Total 850 Balance 1000 354 - Medications Medications: Current Medications Dextrose (Dextrose 50% Inj) 0 ml IV STAT PRN; Protocol PRN Reason: Hypoglycemia Protocol Dextrose (Glutose 15) 0 gm PO ONCE PRN; Protocol PRN Reason: Hypoglycemia Protocol Ferrous Sulfate (Feosol) 325 mg PO TID [facility] Last Admin: 01/13/18 08:40 Dose: Not Given Gabapentin (Neurontin) 300 mg PO TID [facility] Last Admin: 01/13/18 08:40 Dose: Not Given Glucagon (Glucagen Diagnostic Kit) 0 mg IM STAT PRN; Protocol PRN Reason: Hypoglycemia Protocol Meropenem 500 mg/ Sodium (Chloride) 100 mls @ 100 mls/hr IVPB Q12 [place] PRN Reason: Protocol Last Admin: 01/13/18 08:22 Dose: 100 mls/hr Insulin Human Regular 100 (units/ Sodium Chloride) 101 mls @ 2.02 mls/hr IV .Q24H [place]; 2 UNITS/HR PRN Reason: Protocol Last Titration: 01/13/18 03:00 Dose: 2 units/hr, 2.02 mls/hr Sodium Bicarbonate 100 meq/ (Sodium Chloride) 1,100 mls @ 100 mls/hr IV .Q11H [place] Stop: 01/14/18 09:52 Ondansetron HCl (Zofran Inj) 4 mg IVP Q6 PRN PRN Reason: Nausea/Vomiting Last Admin: 01/13/18 05:38 Dose: 4 mg Pantoprazole Sodium (Protonix Inj) 40 mg IVP Q12 [place] - Labs Labs: 01/13/18 04:12 01/13/18 04:12 PT 12.5 Seconds (9.8-13.1) 01/11/18 13:37 INR 1.1 (0.9-1.2) 01/11/18 13:37 APTT 33.6 Seconds (25.6-37.1) 01/11/18 13:37 - Constitutional Appears: Toxic, In Acute Distress, Confused - Head Exam Head Exam: ATRAUMATIC, NORMAL INSPECTION, NORMOCEPHALIC - Eye Exam Eye Exam: EOMI, Normal appearance, PERRL - ENT Exam ENT Exam: Mucous Membranes Moist Additional comments: Dark vomits with discoloration of tongue noted - Respiratory Exam Respiratory Exam: Clear to Ausculation Bilateral, Respiratory Distress. absent : Rales, Rhonchi, Wheezes - Cardiovascular Exam Cardiovascular Exam: REGULAR RHYTHM, +S1, +S2. absent: Murmur - GI/Abdominal Exam GI & Abdominal Exam: Distended, Guarding, Rigid, Tenderness, Hypoactive Bowel Sounds - Rectal Exam Rectal Exam: Black Stool - Extremities Exam Additional comments: Decreased pulses B/L LE, dorsales pedis, posterial tibial, R great toe discoloration. 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 - Photocopier Technician, GI consult on board. DKA -Admitted to ICU -3 bolus bags of IV NS -1/2 NS with sodium bicarb -Check sugar levels Q2H -Hypoglycemia protocol -Endocrinology consult, Dr Whitney. -Monitor Bicarbonate/anion gap/potassium/glucose Sepsis -Temp improved: 97.7(previous 95.7) -WBC 0.6, Worsening. -CT abdomen/pelvis: Mac colitis, possible cystitis and b/l lower pneumonia. -ID on consult, Dr Bright -Meropenem day 3 -Monitor CBC, CMP MECHELLE - Stage 4 - Mild hyperkalemia ( 5.2 ) and metabolic acidosis - Persistent elevated BUN/Creat - Possibly due to dehydration/acute on CKD and also due to saline infusion - d/w demurrage agent Dr. Austin, no indication for urgent dialysis, will continue to monitor, dialysis will be started if patient developed hyprekalemia > 6.0 or developed pulm edema, will continue hydration, changed to bicarb drip to keep potassium from rising and to treat metabolic acidosis. Myelodysplasia (myelodysplastic syndrome) - Seen by Dr. Pace - on hypomethylating agent (decitabine) as outpatient - growth factor and transfusion support Right big toe necrosis - F/U wound care by Podiatry and vascular surgery - ID on consult, Dr Bright - Meropenem day 2 - Vanco D/Andrey. HTN - Controlled - Continue home med External Hemorrhoids - Avoid constipation - no active bleeding or thrombosed Prophylaxis - NO anticoagulant for DVT prophylaxis due to thrombocytopenia - platelets on admission 30 - SCDs
--- NOTE | 2018-01-13 10:13 | PN ---
DATE: 01/13/2018 ENDO FOLLOWUP NOTE LOCATION: ICU room 424. SUBJECTIVE: This is a 77-year-old male with advanced azotemia and end-stage renal disease with persistent metabolic acidosis despite an insulin drip infusion, and is now being followed closely for metabolic management. His glycemic levels are near optimal at this time and the glucose values overnight have ranged from 102 to 148 and 165 mg/dL. His chemistries today showed a BUN of 175, sodium 140, potassium 5.2, chloride 114, CO2 is 9, glucose is 176 and creatinine is 4.6. His calcium level is 6 with an albumin level of 1.9 and a corrected calcium of 8.1 mg/dL. His TSH is 3.69. ASSESSMENT AND PLAN: This is a 77-year-old male with marked renal insufficiency and advanced azotemia with persistent metabolic acidosis clearly not anymore related to diabetic decompensation for in fact, he was not really on any kind of diabetic medications on admission, and this is most likely all metabolic related to the advanced renal insufficiency and overt end-stage renal failure at this time. He has diabetic microvascular complications of retinopathy, polyneuropathy, and nephropathy with end-stage renal disease and advanced azotemia as noted. His metabolic acidosis will really resolve dramatically with the initiation of hemodialysis as noted as most likely apparent at this time. He also has diabetic macrovascular complications of coronary artery disease and peripheral arterial disease with a persistent right hallux neuropathic ulceration with underlying osteomyelitis. Plan of management would highly recommend the sodium bicarb infusion and eventual initiation of hemodialysis if we are to address of the persistent metabolic acidosis at this time. We will continue the low-dose insulin drip infusion, which is really not metabolically helpful at this time, but may be an adjuvant therapy to the underlying metabolic acidosis, but as shown over the last 48 hours has not improved the CO2 level as noted and today's level is only 9 despite the insulin drip infusion given in the last 72 hours. We will concur with the renal evaluation and management at this time and continue the hemodynamic monitoring here in the ICU as noted. We will obtain serial chemistries and supplement accordingly as needed. We will follow this. Umu Whitney MD [facility] # [id number]
[2018-01-13] MEDS: Insulin Regular 100 units/ml SC SCH ×4 (12:00→21:53)
[2018-01-13] MEDS ORDERED: Insulin Regular 100 units/ml SC SCH (12:00)
--- NOTE | 2018-01-13 15:44 | RAD ---
Date of service: 01/13/2018 PROCEDURE: CHEST RADIOGRAPH, 1 VIEW HISTORY: hematemesis COMPARISON: 01/11/2018 FINDINGS: LUNGS: Clear. PLEURA: No pneumothorax or pleural fluid seen. CARDIOVASCULAR: Normal. OSSEOUS STRUCTURES: No significant abnormalities. VISUALIZED UPPER ABDOMEN: Normal. OTHER FINDINGS: None. IMPRESSION: No active disease.
[2018-01-13] MEDS: Lidocaine 5% Patch TD SCH (16:02)
--- NOTE | 2018-01-13 16:16 | CP.PCM.PN ---
Subjective - Date & Time of Evaluation Date of Evaluation: 01/13/18 Time of Evaluation: 16:12 - Subjective Subjective: renal follow up note complains of nausea/vomiting/black stools per nursing vitals reviewed heent normal no jvd nausea+ awake, in distress sec to hiccups and nausea s1s2 present no resp distress edema - UOP 800cc in24 hours A&P: MECHELLE/CKD stage 3/anemia/pancytopenia/uremia/acidosis monitor I&Os can switch fluids to bicarb gtt lytes reviewed anemia: transfuse per icu pancytopenia with MDS: per hem acute worsening, ? TTP/HUS, recommend discussing with hem d/w ICU team Objective - Vital Signs/Intake and Output Vital Signs (last 24 hours): Temp Pulse Resp BP Pulse Ox 97.9 F 100 H 17 163/66 H 100 01/13/18 12:08 01/13/18 14:00 01/13/18 14:00 01/13/18 14:00 01/13/18 14:00 Intake and Output: 01/13/18 01/13/18 06:59 18:59 Intake Total 1850 2004 Output Total 850 Balance 1000 2004 - Medications Medications: Current Medications Acetaminophen (Tylenol 325mg Tab) 650 mg PO Q6 PRN PRN Reason: Pain, Mild (1-3) Dextrose (Dextrose 50% Inj) 0 ml IV STAT PRN; Protocol PRN Reason: Hypoglycemia Protocol Dextrose (Glutose 15) 0 gm PO ONCE PRN; Protocol PRN Reason: Hypoglycemia Protocol Ferrous Sulfate (Feosol) 325 mg PO TID [facility] Last Admin: 01/13/18 16:04 Dose: Not Given Gabapentin (Neurontin) 300 mg PO TID [facility] Last Admin: 01/13/18 16:04 Dose: Not Given Glucagon (Glucagen Diagnostic Kit) 0 mg IM STAT PRN; Protocol PRN Reason: Hypoglycemia Protocol Meropenem 500 mg/ Sodium (Chloride) 100 mls @ 100 mls/hr IVPB Q12 [facility] PRN Reason: Protocol Last Admin: 01/13/18 08:22 Dose: 100 mls/hr Sodium Bicarbonate 100 meq/ (Sodium Chloride) 1,100 mls @ 100 mls/hr IV .Q11H [facility] Stop: 01/14/18 09:52 Last Admin: 01/13/18 10:50 Dose: 100 mls/hr Insulin Human Regular (Humulin R) 0 units SC Q3H [place] PRN Reason: Protocol Last Admin: 01/13/18 15:00 Dose: 1 units Lidocaine (Lidoderm) 1 ea TD DAILY [facility] Last Admin: 01/13/18 16:02 Dose: 1 ea Morphine Sulfate (Morphine) 1 mg IVP Q6 PRN PRN Reason: Pain, moderate (4-7) Ondansetron HCl (Zofran Inj) 4 mg IVP Q6 PRN PRN Reason: Nausea/Vomiting Last Admin: 01/13/18 12:20 Dose: 4 mg Pantoprazole Sodium (Protonix Inj) 40 mg IVP Q12 [place] - Labs Labs: 01/13/18 04:12 01/13/18 04:12 PT 12.5 Seconds (9.8-13.1) 01/11/18 13:37 INR 1.1 (0.9-1.2) 01/11/18 13:37 APTT 33.6 Seconds (25.6-37.1) 01/11/18 13:37
--- NOTE | 2018-01-13 19:15 | CP.PCM.PN ---
Subjective - Date & Time of Evaluation Date of Evaluation: 01/13/18 Time of Evaluation: 15:00 - Subjective Subjective: Slightly confused, episode of hematochezia and hematemesis Objective - Vital Signs/Intake and Output Vital Signs (last 24 hours): Temp Pulse Resp BP Pulse Ox 98.1 F 101 H 23 175/80 H 100 01/13/18 17:16 01/13/18 18:00 01/13/18 18:00 01/13/18 18:00 01/13/18 18:00 Intake and Output: 01/13/18 01/14/18 18:59 06:59 Intake Total 2879 Output Total 1100 Balance 1779 - Medications Medications: Current Medications Acetaminophen (Tylenol 325mg Tab) 650 mg PO Q6 PRN PRN Reason: Pain, Mild (1-3) Dextrose (Dextrose 50% Inj) 0 ml IV STAT PRN; Protocol PRN Reason: Hypoglycemia Protocol Dextrose (Glutose 15) 0 gm PO ONCE PRN; Protocol PRN Reason: Hypoglycemia Protocol Ferrous Sulfate (Feosol) [address] [facility] Last Admin: 01/13/18 16:04 Dose: Not Given Gabapentin (Neurontin) [address] [facility] Last Admin: 01/13/18 16:04 Dose: Not Given Glucagon (Glucagen Diagnostic Kit) 0 mg IM STAT PRN; Protocol PRN Reason: Hypoglycemia Protocol Meropenem 500 mg/ Sodium (Chloride) 100 mls @ 100 mls/hr IVPB Q12 [place] PRN Reason: Protocol Last Admin: 01/13/18 08:22 Dose: 100 mls/hr Sodium Bicarbonate 100 meq/ (Sodium Chloride) 1,100 mls @ 100 mls/hr IV .Q11H [facility] Stop: 01/14/18 09:52 Last Admin: 01/13/18 10:50 Dose: 100 mls/hr Insulin Human Regular (Humulin R) 0 units SC Q3H [place] PRN Reason: Protocol Last Admin: 01/13/18 18:15 Dose: 1 units Lidocaine (Lidoderm) [address] [facility] Last Admin: 01/13/18 16:02 Dose: 1 ea Morphine Sulfate (Morphine) 1 mg IVP Q6 PRN PRN Reason: Pain, moderate (4-7) Last Admin: 01/13/18 16:36 Dose: 1 mg Ondansetron HCl (Zofran Inj) 4 mg IVP Q6 PRN PRN Reason: Nausea/Vomiting Last Admin: 01/13/18 12:20 Dose: 4 mg Pantoprazole Sodium (Protonix Inj) 40 mg IVP Q12 [place] - Labs Labs: 01/13/18 04:12 01/13/18 04:12 PT 12.5 Seconds (9.8-13.1) 01/11/18 13:37 INR 1.1 (0.9-1.2) 01/11/18 13:37 APTT 33.6 Seconds (25.6-37.1) 01/11/18 13:37 - Head Exam Head Exam: ATRAUMATIC - Eye Exam Eye Exam: Normal appearance - ENT Exam ENT Exam: Mucous Membranes Dry - Respiratory Exam Respiratory Exam: NORMAL BREATHING PATTERN - Cardiovascular Exam Cardiovascular Exam: +S1, +S2 - GI/Abdominal Exam GI & Abdominal Exam: Normal Bowel Sounds Assessment and Plan (1) Pancytopenia Assessment & Plan: secondary to MDS on growth factor and transfusion support goal plt > 20,000 Status: Acute (2) Myelodysplasia (myelodysplastic syndrome) Assessment & Plan: s/p outpatient hypomethylating agent treatment growth factor/transfusion support Status: Chronic
[2018-01-13 20:37] LABS: CALCIUM 6.1 mg/dL (8.4-10.2)
[2018-01-14] MEDS: Pantoprazole 40 MG in Sodium Chloride 0.9% 100 ML IVPB SCH ×5 (00:42→22:36)
[2018-01-14] MEDS: Insulin Regular 100 units/ml SC SCH ×6 (00:48→22:55)
[2018-01-14 02:23] LABS: HEMOGLOBIN 8.5 g/dL (12.0-18.0); MEAN CELL VOLUME 89.1 fl (80.0-94.0); MEAN CORPUSCULAR HGB CONC 33.6 g/dL (33.0-37.0); RBC 2.85 Mil/uL (4.40-5.90); RED CELL DISTRIBUTION WIDTH 16.6 % (11.5-14.5)
[2018-01-14 02:31] LABS: WHITE BLOOD COUNT 0.5 K/uL (4.8-10.8)
[2018-01-14 05:54] LABS: MEAN CELL VOLUME 86.6 fl (80.0-94.0); MEAN CORPUSCULAR HEMOGLOBIN 29.3 pg (27.0-31.0); MEAN CORPUSCULAR HGB CONC 33.9 g/dL (33.0-37.0); RBC 2.72 Mil/uL (4.40-5.90); RED CELL DISTRIBUTION WIDTH 16.5 % (11.5-14.5)
[2018-01-14 06:06] LABS: WHITE BLOOD COUNT 0.5 K/uL (4.8-10.8)
[2018-01-14 06:30] LABS: ALB/GLOB RATIO 0.9 (1.0-2.1); ALBUMIN 2.4 g/dL (3.5-5.0); CALCIUM 6.3 mg/dL (8.4-10.2)
--- NOTE | 2018-01-14 07:20 | CP.PCM.PN ---
Subjective - Date & Time of Evaluation Date of Evaluation: 01/14/18 Time of Evaluation: 07:20 - Subjective Subjective: Podiatry Progress Note - Dr. Ledezma 77M seen and examined in ICU concerning right hallux gangrene and left heel deep tissue injury. Patient feeling weak, wincing of pain. Grandson present at bedside. No acute events overnight. Patient complains of pain in right great toe and left heel. Dressings to bilateral LE clean/dry/intact. Multipodus boots present bilaterally. Denies N/V/D/F/C. Objective - Vital Signs/Intake and Output Vital Signs (last 24 hours): Temp Pulse Resp BP Pulse Ox 98.3 F 98 H 16 128/64 100 01/14/18 06:00 01/14/18 06:00 01/14/18 06:00 01/14/18 06:00 01/14/18 06:00 Intake and Output: 01/14/18 01/14/18 06:59 18:59 Intake Total 1884 Output Total 2000 Balance -116 - Medications Medications: Current Medications Acetaminophen (Tylenol 325mg Tab) 650 mg PO Q6 PRN PRN Reason: Pain, Mild (1-3) Dextrose (Dextrose 50% Inj) 0 ml IV STAT PRN; Protocol PRN Reason: Hypoglycemia Protocol Dextrose (Glutose 15) 0 gm PO ONCE PRN; Protocol PRN Reason: Hypoglycemia Protocol Gabapentin (Neurontin) 300 mg PO TID [facility] Last Admin: 01/13/18 16:04 Dose: Not Given Glucagon (Glucagen Diagnostic Kit) 0 mg IM STAT PRN; Protocol PRN Reason: Hypoglycemia Protocol Meropenem 500 mg/ Sodium (Chloride) 100 mls @ 100 mls/hr IVPB Q12 [place] PRN Reason: Protocol Last Admin: 01/13/18 20:00 Dose: 100 mls/hr Sodium Bicarbonate 100 meq/ (Sodium Chloride) 1,100 mls @ 100 mls/hr IV .Q11H [facility] Stop: 01/14/18 09:52 Last Admin: 01/13/18 23:23 Dose: 100 mls/hr Pantoprazole Sodium 40 mg/ (Sodium Chloride) 100 mls @ 20 mls/hr IVPB Q5H [place] PRN Reason: 8 MG/HR Last Admin: 01/14/18 05:26 Dose: 20 mls/hr Insulin Human Regular (Humulin R) 0 units SC Q3H [place] PRN Reason: Protocol Last Admin: 01/14/18 06:21 Dose: Not Given Lidocaine (Lidoderm) 1 ea TD DAILY [place] Last Admin: 01/13/18 16:02 Dose: 1 ea Morphine Sulfate (Morphine) 1 mg IVP Q6 PRN PRN Reason: Pain, moderate (4-7) Last Admin: 01/13/18 23:56 Dose: 1 mg Ondansetron HCl (Zofran Inj) 4 mg IVP Q6 PRN PRN Reason: Nausea/Vomiting Last Admin: 01/13/18 23:22 Dose: 4 mg - Labs Labs: 01/14/18 04:18 01/14/18 04:18 PT 12.5 Seconds (9.8-13.1) 01/11/18 13:37 INR 1.1 (0.9-1.2) 01/11/18 13:37 APTT 33.6 Seconds (25.6-37.1) 01/11/18 13:37 - Constitutional Appears: Well, Non-toxic, No Acute Distress - Extremities Exam Additional comments: Vasc: DP/PT pulses non-palpable b/l. Temperature gradient warm to cool, cold to digits b/l. CFT delayed x10. No edema noted b/l. Neuro: Gross sensation diminished bilaterally. Derm: Dry eschar noted to distal aspect of right hallux measuring approximately 2 x 1 cm; no drainage; no malodor; no purulence; no fluctuance; minimal erythema noted periwound. Non-blanchable erythema with pinpoint areas of ecchymosis noted to left heel. Ortho: Severe pain on palpation noted to right hallux and left heel. - Neurological Exam Neurological Exam: Alert, Awake, Oriented x3 - Psychiatric Exam Psychiatric exam: Normal Affect, Normal Mood Assessment and Plan - Assessment and Plan (Free Text) Assessment: 77M with 1) right hallux dry gangrene, and 2) left heel deep tissue injury Plan: Patient seen and evaluated Discussed with attending, Dr. Ledezma Neutropenic precautions, WBC 0.5 No surgical intervention warranted at this time f/u vascular recs Continue local wound care - DSD bilateral LE Continue multipodus boots at all times in bed Pain control - Tylenol, Lidoderm TD Podiatry will continue to follow
[2018-01-14] MEDS ORDERED: CALCIUM GLUCONATE IVPB ONE (07:50)
[2018-01-14] MEDS ORDERED: SODIUM CHLORIDE 0.9% IVPB ONE (07:50)
--- NOTE | 2018-01-14 08:22 | CP.PCM.PN ---
Subjective - Date & Time of Evaluation Date of Evaluation: 01/14/18 Time of Evaluation: 08:30 - Subjective Subjective: Patient seen and examined this morning. There are no acute events, NAD. Patient's CBC and Cr improved. Patient still producing black stool. Patient continues to report leg pain but not verbalizing much else. Patient not in respiratory distress. Objective - Vital Signs/Intake and Output Vital Signs (last 24 hours): Temp Pulse Resp BP Pulse Ox 98 F 91 H 13 133/66 97 01/14/18 08:00 01/14/18 08:00 01/14/18 08:00 01/14/18 08:00 01/14/18 08:00 Intake and Output: 01/14/18 01/14/18 06:59 18:59 Intake Total 1884 240 Output Total 1999 Balance -116 240 - Medications Medications: Current Medications Acetaminophen (Tylenol 325mg Tab) 650 mg PO Q6 PRN PRN Reason: Pain, Mild (1-3) Dextrose (Dextrose 50% Inj) 0 ml IV STAT PRN; Protocol PRN Reason: Hypoglycemia Protocol Dextrose (Glutose 15) 0 gm PO ONCE PRN; Protocol PRN Reason: Hypoglycemia Protocol Gabapentin (Neurontin) 300 mg PO TID [facility] Last Admin: 01/13/18 16:04 Dose: Not Given Glucagon (Glucagen Diagnostic Kit) 0 mg IM STAT PRN; Protocol PRN Reason: Hypoglycemia Protocol Meropenem 500 mg/ Sodium (Chloride) 100 mls @ 100 mls/hr IVPB Q12 [place] PRN Reason: Protocol Last Admin: 01/13/18 20:00 Dose: 100 mls/hr Sodium Bicarbonate 100 meq/ (Sodium Chloride) 1,100 mls @ 100 mls/hr IV .Q11H [facility] Stop: 01/14/18 09:52 Last Admin: 01/13/18 23:23 Dose: 100 mls/hr Pantoprazole Sodium 40 mg/ (Sodium Chloride) 100 mls @ 20 mls/hr IVPB Q5H [place] PRN Reason: 8 MG/HR Last Admin: 01/14/18 05:26 Dose: 20 mls/hr Calcium Gluconate 1,000 meq/ (Sodium Chloride) 100 mls @ 100 mls/hr IVPB ONCE ONE Stop: 01/14/18 08:49 Insulin Human Regular (Humulin R) 0 units SC Q3H [place] PRN Reason: Protocol Last Admin: 01/14/18 06:21 Dose: Not Given Lidocaine (Lidoderm) 1 ea TD DAILY [place] Last Admin: 01/13/18 16:02 Dose: 1 ea Morphine Sulfate (Morphine) 1 mg IVP Q6 PRN PRN Reason: Pain, moderate (4-7) Last Admin: 01/13/18 23:56 Dose: 1 mg Ondansetron HCl (Zofran Inj) 4 mg IVP Q6 PRN PRN Reason: Nausea/Vomiting Last Admin: 01/13/18 23:22 Dose: 4 mg - Labs Labs: 01/14/18 04:18 01/14/18 04:18 PT 12.5 Seconds (9.8-13.1) 01/11/18 13:37 INR 1.1 (0.9-1.2) 01/11/18 13:37 APTT 33.6 Seconds (25.6-37.1) 01/11/18 13:37 - Constitutional Appears: No Acute Distress, Confused, Cachectic - Head Exam Head Exam: ATRAUMATIC, NORMAL INSPECTION, NORMOCEPHALIC - Eye Exam Eye Exam: Normal appearance - ENT Exam ENT Exam: Mucous Membranes Moist Additional comments: continues to produce dark vomits with discoloration of tongue and gums - Neck Exam Neck Exam: absent: Tenderness - Respiratory Exam Respiratory Exam: Clear to Ausculation Bilateral. absent: Accessory Muscle Use , Decreased Breath Sounds, Rales, Rhonchi, Wheezes, Respiratory Distress - Cardiovascular Exam Cardiovascular Exam: REGULAR RHYTHM, RRR, +S1, +S2 - GI/Abdominal Exam GI & Abdominal Exam: Distended, Guarding, Rigid, Tenderness, Hypoactive Bowel Sounds - Rectal Exam Rectal Exam: Black Stool - Extremities Exam Extremities Exam: Tenderness Additional comments: Decreased pulses B/L LE, dorsales pedis, posterior tibial arteries R great toe discoloration. 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 Currently hemodynamically stable Plan: Pancytopenia - Chronic, Uncontrolled - Severe thrombocytopenia and leukopenia - Patient most likely bleeding GI, Hematochezia and hemetemesis noted - CBC: 0.5>8.0/23.5<35 - s/p 2 PRBC, 2 FFP, 1 platelet, and granix yesterday - F/U CBC, Vitals, accuchecks after transfusion. - Heme/Onc, Dr. Pace, recommendations appreciated - GI consult ordered, Dr. Bowens aware DKA - 1/2 NS with sodium bicarb @ 75 ml/hr - insulin regular Q3h low dose protocol - Check sugar levels Q2H - Hypoglycemia protocol - Endocrinology, Dr Whitney, recommendations appreciated - Monitor Bicarbonate/anion gap/potassium/glucose Sepsis - afebrile - WBC still decreased but received granix last night - CT abdomen/pelvis: Mac colitis, possible cystitis and b/l lower pneumonia. - ID, Dr Bright, recommendations appreciated - Meropenem 500 mg IV Q12h day 4 (renally dosed) - Monitor CBC, CMP MECHELLE - improving, Cr 3.7 - BUN also improving - Possibly due to dehydration/acute on CKD and also due to saline infusion - nephrology, Dr. Austin, recommendations appreciated - d/w casino attendant Dr. Austin, no indication for urgent dialysis, will continue to monitor, dialysis will be started if patient developed hyprekalemia > 6.0 or developed pulm edema, will continue hydration, changed to bicarb drip to keep potassium from rising and to treat metabolic acidosis. Myelodysplasia (myelodysplastic syndrome) - Seen by Dr. Pace - on hypomethylating agent (decitabine) as outpatient - growth factor and transfusion support Right big toe necrosis - podiatry, recommendations appreciated - no surgical intervention at this time HTN - Controlled - Continue home med Prophylactic measures - NO anticoagulant for DVT prophylaxis due to thrombocytopenia - SCDs
[2018-01-14] MEDS: Lidocaine 5% Patch TD SCH (08:54)
[2018-01-14] MEDS: Meropenem 500 MG in Sodium Chloride 0.9% 100 ML IVPB SCH ×2 (08:54→21:50)
--- NOTE | 2018-01-14 11:20 | CP.CCUPN ---
CCU Subjective - Physician Review Events Since Last Encounter (Free Text): 01/14/18 11:18 Awake, feeling weak, no pain, Has been on bicarb drip since yesterday, now has increased urine output and creatinine is better and K is better and also serum sodium and acidosis Received platlets transfusion and no platetlets count is 35 K, continue to have leukopenia 0.5 CCU Objective - Vital Signs / Intake & Output Vital Signs (Last 4 hours): Vital Signs Temp Pulse Resp BP Pulse Ox 01/14/18 10:00 100 H 15 153/68 H 99 01/14/18 08:00 98 F 91 H 13 133/66 97 Intake and Output (Last 8hrs): Intake & Output 01/13/18 01/14/18 01/14/18 22:59 06:59 14:59 Intake Total 1524 1234 480 Output Total 1100 2000 Balance 424 -766 480 Weight 122 lb 3.2 oz Intake: IV 600 900 280 Intake, Piggyback 100 200 Oral 0 Blood Product 799 334 Red Blood Cells Cpd As1 325 Lr Unit [id number] Other 25 Red Blood Cells Cpd As1 25 Lr Unit [id number] Output: Urine 1100 2000 Urethral (Henriquez) 1100 2000 Other: # Bowel Movements 2 1 1 - Physical Exam Narrative Physical Exam (Free Text): 01/14/18 11:20 P/E neck : No JVD lungs; No ronchi, crackles abdomen soft: non-tender Ext: No edema heart: no gallop Head: Positive for: Atraumatic, Normocephalic Extroacular Muscles: Positive for: EOMI Mouth: Positive for: Dry Nose (Internal): Positive for: Normal Inspection Neck: Positive for: Normal Range of Motion Respiratory/Chest: Positive for: Good Air Exchange Cardiovascular: Positive for: Regular Rate and Rhythm Abdomen: Negative for: Tenderness, Distention Upper Extremity: Positive for: Normal Inspection Lower Extremity: Positive for: Normal Inspection Neurological: Positive for: Speech Normal Psychiatric: Positive for: Alert, Oriented x 3 - Medications Active Medications: Active Medications Generic Name Dose Route Start Last Admin Trade Name Freq PRN Reason Stop Dose Admin Acetaminophen 650 mg 01/13/18 14:14 Tylenol 325mg Tab PO Q6 PRN Pain, Mild (1-3) Dextrose 0 ml 01/11/18 14:32 Dextrose 50% Inj IV STAT PRN Hypoglycemia Protocol Protocol Dextrose 0 gm 01/11/18 14:32 Glutose 15 PO ONCE PRN Hypoglycemia Protocol Protocol Gabapentin 300 mg 01/12/18 09:00 01/14/18 08:55 Neurontin PO Not Given TID [place] Glucagon 0 mg 01/11/18 14:32 Glucagen Diagnostic Kit IM STAT PRN Hypoglycemia Protocol Protocol Meropenem 500 mg/ Sodium 100 mls @ 100 mls/hr 01/11/18 17:30 01/14/18 08:54 Chloride IVPB 100 mls/hr Q12 [place] Administration Protocol Pantoprazole Sodium 40 mg/ 100 mls @ 20 mls/hr 01/14/18 00:30 01/14/18 10:30 Sodium Chloride IVPB 20 mls/hr Q5H [place] Administration 8 MG/HR Sodium Bicarbonate 100 meq/ 1,100 mls @ 75 mls/hr 01/14/18 11:15 Sodium Chloride IV 01/15/18 11:14 .[id number] [facility] Insulin Human Regular 0 units 01/13/18 21:00 01/14/18 08:55 Humulin R SC Not Given Q3H [facility] Protocol Lidocaine 1 ea 01/13/18 14:30 01/14/18 08:54 Lidoderm TD 1 ea DAILY [place] Administration Morphine Sulfate 1 mg 01/13/18 15:16 01/13/18 23:56 Morphine IVP 1 mg Q6 PRN Administration Pain, moderate (4-7) Ondansetron HCl 4 mg 01/12/18 09:52 01/13/18 23:22 Zofran Inj IVP 4 mg Q6 PRN Administration Nausea/Vomiting - Patient Studies Lab Studies: Microbiology Studies 01/12/18 21:06 Gram Stain - Final Sputum 01/11/18 14:05 Blood Culture - Preliminary Blood NO GROWTH AFTER 48 HOURS 01/11/18 14:44 Blood Culture - Preliminary Blood NO GROWTH AFTER 48 HOURS 01/11/18 08:25 MRSA Culture (Admit) - Final Naris MRSA NOT DETECTED Lab Studies 01/14/18 01/14/18 01/14/18 Range/Units 04:18 04:18 01:30 WBC 0.5 L* 0.5 L* (4.8-10.8) K/uL RBC 2.72 L 2.85 L (4.40-5.90) Mil/uL Hgb 8.0 L 8.5 L D (12.0-18.0) g/dL Hct 23.5 L 25.4 L (35.0-51.0) % MCV 86.6 D 89.1 (80.0-94.0) fl MCH 29.3 30.0 (27.0-31.0) pg MCHC 33.9 33.6 (33.0-37.0) g/dL RDW 16.5 H 16.6 H (11.5-14.5) % Plt Count 35 L 41 L D (130-400) K/uL Sodium 147 (132-148) mmol/l Potassium 4.4 (3.6-5.0) MMOL/L Chloride 116 H (98-107) mmol/L Carbon Dioxide 14 L (22-30) mmol/L Anion Gap 21 H (10-20) BUN 155 H* (9-20) mg/dl Creatinine 3.7 H (0.8-1.5) mg/dl Est GFR ( Amer) 19 Est GFR (Non-Af Amer) 16 Random Glucose 181 H (75-110) mg/dL Calcium 6.3 L (8.4-10.2) mg/dL Total Bilirubin 1.0 (0.2-1.3) mg/dl AST 16 L D (17-59) U/L ALT 22 (21-72) U/L Alkaline Phosphatase 47 (38-126) U/L Total Protein 5.1 L (6.3-8.2) G/DL Albumin 2.4 L D (3.5-5.0) g/dL Globulin 2.6 (2.2-3.9) gm/dL Albumin/Globulin Ratio 0.9 L (1.0-2.1) Blood Type Antibody Screen Crossmatch BBK History Checked 01/13/18 01/13/18 Range/Units 19:44 07:45 WBC (4.8-10.8) K/uL RBC (4.40-5.90) Mil/uL Hgb (12.0-18.0) g/dL Hct (35.0-51.0) % MCV (80.0-94.0) fl MCH (27.0-31.0) pg MCHC (33.0-37.0) g/dL RDW (11.5-14.5) % Plt Count (130-400) K/uL Sodium 142 (132-148) mmol/l Potassium 5.0 (3.6-5.0) MMOL/L Chloride 115 H (98-107) mmol/L Carbon Dioxide 10 L* (22-30) mmol/L Anion Gap 22 H (10-20) BUN 170 H* (9-20) mg/dl Creatinine 4.0 H (0.8-1.5) mg/dl Est GFR ( Amer) 18 Est GFR (Non-Af Amer) 15 Random Glucose 166 H (75-110) mg/dL Calcium 6.1 L (8.4-10.2) mg/dL Total Bilirubin (0.2-1.3) mg/dl AST (17-59) U/L ALT (21-72) U/L Alkaline Phosphatase (38-126) U/L Total Protein (6.3-8.2) G/DL Albumin (3.5-5.0) g/dL Globulin (2.2-3.9) gm/dL Albumin/Globulin Ratio (1.0-2.1) Blood Type O POSITIVE Antibody Screen Negative Crossmatch See Detail BBK History Checked Patient has bt Laboratory Results - last 24 hr 01/13/18 01/13/18 01/14/18 07:45 19:44 01:30 WBC 0.5 L* RBC 2.85 L Hgb 8.5 L D Hct 25.4 L MCV 89.1 MCH 30.0 MCHC 33.6 RDW 16.6 H Plt Count 41 L D Sodium 142 Potassium 5.0 Chloride 115 H Carbon Dioxide 10 L* Anion Gap 22 H BUN 170 H* Creatinine 4.0 H Est GFR ( Amer) 18 Est GFR (Non-Af Amer) 15 Random Glucose 166 H Calcium 6.1 L Total Bilirubin AST ALT Alkaline Phosphatase Total Protein Albumin Globulin Albumin/Globulin Ratio Blood Type O POSITIVE Antibody Screen Negative Crossmatch See Detail BBK History Checked Patient has bt 01/14/18 01/14/18 04:18 04:18 WBC 0.5 L* RBC 2.72 L Hgb 8.0 L Hct 23.5 L MCV 86.6 D MCH 29.3 MCHC 33.9 RDW 16.5 H Plt Count 35 L Sodium 147 Potassium 4.4 Chloride 116 H Carbon Dioxide 14 L Anion Gap 21 H BUN 155 H* Creatinine 3.7 H Est GFR ( Amer) 19 Est GFR (Non-Af Amer) 16 Random Glucose 181 H Calcium 6.3 L Total Bilirubin 1.0 AST 16 L D ALT 22 Alkaline Phosphatase 47 Total Protein 5.1 L Albumin 2.4 L D Globulin 2.6 Albumin/Globulin Ratio 0.9 L Blood Type Antibody Screen Crossmatch BBK History Checked Fingerstick Blood Sugar Results: 200 Critical Care Progress Note - Nutrition Nutrition: Nutrition Category Date Time Status Consistent Carbohydrate [DIET] Diets 01/13/18 Breakfast Active Assessment/Plan - Assessment and Plan (Free Text) Assessment: >Diabetic Keto-Acidosis -Insulin drip -IV D5W1/2NS at 175mL/hr after bolus. -Check sugar levels Q2H -Monitor Bicarbonate and potassium levels -Hypoglycemia protocol -Endocrinology consult, Dr Whitney. >Acute Kidney Injury Improving with bicarb GGT, K, delivery person and acidosis , better , increased urine output, no need for dialysis at this point -MECHELLE is due to dehydration/acute on CKD -Nephrology: Dr Norman De La Vega >Emesis, abdominal pain -CT scan: Mac colitis, possible cystitis and b/l lower pneumonia. -ID on consult, Dr Bright -Meropenem was initiated as per ID. >Pancytopenia -Secondary to MDS. Had very low count yesterday 01/13, only 6K, platets transfused, now 35 K, goal is to keep > 20 K, as per heam/oncologist . -On Iron supplement -Granix and Procrit. 1x dose. -Hematology on board, Dr Pace >Myelodysplastic Syndrome -Hematology on consult, Katelynn. 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 -Podiatry on consult: X ray and Vascular Surgery Consult. DKA resolved >DVT prophylaxis -SCD's
--- NOTE | 2018-01-14 15:02 | CP.PCM.PN ---
Subjective - Date & Time of Evaluation Date of Evaluation: 01/14/18 Time of Evaluation: 15:01 - Subjective Subjective: renal follow up note UOP reviewed improved family bedside vitals reviewed heent normal no jvd nausea+ awake NAD s1s2 present no resp distress edema - A&P: MECHELLE/CKD stage 3/anemia/pancytopenia/uremia/acidosis monitor I&Os continue bicarb gtt lytes reviewed anemia: transfuse per icu pancytopenia with MDS: per hem no acute hd needs d/w ICU team Objective - Vital Signs/Intake and Output Vital Signs (last 24 hours): Temp Pulse Resp BP Pulse Ox 98 F 98 H 19 144/77 99 01/14/18 12:00 01/14/18 14:00 01/14/18 14:00 01/14/18 14:00 01/14/18 14:00 Intake and Output: 01/14/18 01/14/18 06:59 18:59 Intake Total 1884 1185 Output Total 2000 Balance -116 1185 - Medications Medications: Current Medications Acetaminophen (Tylenol 325mg Tab) 650 mg PO Q6 PRN PRN Reason: Pain, Mild (1-3) Dextrose (Dextrose 50% Inj) 0 ml IV STAT PRN; Protocol PRN Reason: Hypoglycemia Protocol Dextrose (Glutose 15) 0 gm PO ONCE PRN; Protocol PRN Reason: Hypoglycemia Protocol Gabapentin (Neurontin) 300 mg PO TID [facility] Last Admin: 01/14/18 12:31 Dose: Not Given Glucagon (Glucagen Diagnostic Kit) 0 mg IM STAT PRN; Protocol PRN Reason: Hypoglycemia Protocol Meropenem 500 mg/ Sodium (Chloride) 100 mls @ 100 mls/hr IVPB Q12 [place] PRN Reason: Protocol Last Admin: 01/14/18 08:54 Dose: 100 mls/hr Pantoprazole Sodium 40 mg/ (Sodium Chloride) 100 mls @ 20 mls/hr IVPB Q5H [place] PRN Reason: 8 MG/HR Last Admin: 01/14/18 10:30 Dose: 20 mls/hr Sodium Bicarbonate 100 meq/ (Sodium Chloride) 1,100 mls @ 75 mls/hr IV .[id number] [facility] Stop: 01/15/18 11:14 Insulin Human Regular (Humulin R) 0 units SC ACHS [place] PRN Reason: Protocol Lidocaine (Lidoderm) 1 ea TD DAILY [facility] Last Admin: 01/14/18 08:54 Dose: 1 ea Morphine Sulfate (Morphine) 1 mg IVP Q6 PRN PRN Reason: Pain, moderate (4-7) Last Admin: 01/14/18 13:02 Dose: 1 mg Ondansetron HCl (Zofran Inj) 4 mg IVP Q6 PRN PRN Reason: Nausea/Vomiting Last Admin: 01/13/18 23:22 Dose: 4 mg - Labs Labs: 01/14/18 04:18 01/14/18 04:18 PT 12.5 Seconds (9.8-13.1) 01/11/18 13:37 INR 1.1 (0.9-1.2) 01/11/18 13:37 APTT 33.6 Seconds (25.6-37.1) 01/11/18 13:37
--- NOTE | 2018-01-14 15:19 | PN ---
DATE: 01/14/2018 ENDO FOLLOWUP NOTE LOCATION: In ICU room 424. SUBJECTIVE: This is a 77-year-old male with recent admission for generalized body weakness and evaluated to be in severe metabolic acidosis, initially thought of diabetic ketoacidosis, but the patient has not been on any kind of oral hypoglycemic therapy or insulin therapy for that matter in the last few months prior to admission. He received vigorous IV hydration and intensive insulin therapy with an insulin drip infusion as noted. LABORATORY DATA: His latest chemistry showed a BUN of , creatinine 3.7, sodium 147, potassium 4.4, chloride 116, CO2 is 14, and creatinine is 3.7. ASSESSMENT AND PLAN: So at this time, we will continue the intensive glucose monitoring done every three hours with minimal regular insulin coverage as given. We would expect improvement of his acidosis as the chemotherapy agent dissolves and is cleared from his body. He also has pancytopenia at this time and is being followed closely management. We will continue the insulin drip infusion every three hours to obviate hypoglycemia and detailed orders have been given. We will obtain serial chemistries and supplement accordingly needed. We will follow with you. Umu Whitney MD
[2018-01-15] MEDS: Pantoprazole 40 MG in Sodium Chloride 0.9% 100 ML IVPB SCH ×4 (03:45→20:46)
--- NOTE | 2018-01-15 06:16 | CP.PCM.PN ---
Subjective - Date & Time of Evaluation Date of Evaluation: 01/15/18 Time of Evaluation: 06:13 - Subjective Subjective: Podiatry Progress Note for attending Dr. Ledezma 77 y/o M patient seen and examined in the bedside in ICU for right hallux gangrene and left heel deep tissue injury. Patient feeling weak, He is in pain. Aside from pain, Patient and his nurse denies any acute events overnight. Patient complains of pain in right great toe and left heel. Dressings to bilateral LE clean/dry/intact. Multipodus boots present bilaterally. Patient and his nurse denies N/V/D/F/C. Objective - Vital Signs/Intake and Output Vital Signs (last 24 hours): Temp Pulse Resp BP Pulse Ox 98.1 F 110 H 20 175/80 H 100 01/15/18 04:00 01/15/18 04:00 01/15/18 04:00 01/15/18 04:00 01/15/18 04:00 Intake and Output: 01/14/18 01/15/18 18:59 06:59 Intake Total 1625 720 Output Total 1300 952 Balance 325 -232 - Medications Medications: Current Medications Acetaminophen (Tylenol 325mg Tab) 650 mg PO Q6 PRN PRN Reason: Pain, Mild (1-3) Dextrose (Dextrose 50% Inj) 0 ml IV STAT PRN; Protocol PRN Reason: Hypoglycemia Protocol Dextrose (Glutose 15) 0 gm PO ONCE PRN; Protocol PRN Reason: Hypoglycemia Protocol Gabapentin (Neurontin) 300 mg PO TID [facility] Last Admin: 01/14/18 16:03 Dose: Not Given Glucagon (Glucagen Diagnostic Kit) 0 mg IM STAT PRN; Protocol PRN Reason: Hypoglycemia Protocol Meropenem 500 mg/ Sodium (Chloride) 100 mls @ 100 mls/hr IVPB Q12 [place] PRN Reason: Protocol Last Admin: 01/14/18 21:50 Dose: 100 mls/hr Pantoprazole Sodium 40 mg/ (Sodium Chloride) 100 mls @ 20 mls/hr IVPB Q5H [place] PRN Reason: 8 MG/HR Last Admin: 01/15/18 03:45 Dose: 20 mls/hr Sodium Bicarbonate 100 meq/ (Sodium Chloride) 1,100 mls @ 75 mls/hr IV .[id number] [facility] Stop: 01/15/18 11:14 Last Admin: 01/14/18 16:33 Dose: 75 mls/hr Insulin Human Regular (Humulin R) 0 units SC ACHS [place] PRN Reason: Protocol Last Admin: 01/14/18 22:55 Dose: Not Given Lidocaine (Lidoderm) 1 ea TD DAILY [facility] Last Admin: 01/14/18 08:54 Dose: 1 ea Morphine Sulfate (Morphine) 1 mg IVP Q6 PRN PRN Reason: Pain, moderate (4-7) Last Admin: 01/15/18 00:24 Dose: 1 mg Ondansetron HCl (Zofran Inj) 4 mg IVP Q6 PRN PRN Reason: Nausea/Vomiting Last Admin: 01/14/18 22:43 Dose: 4 mg - Labs Labs: 01/14/18 04:18 01/14/18 04:18 PT 12.5 Seconds (9.8-13.1) 01/11/18 13:37 INR 1.1 (0.9-1.2) 01/11/18 13:37 APTT 33.6 Seconds (25.6-37.1) 01/11/18 13:37 - Constitutional Appears: Non-toxic - Head Exam Head Exam: ATRAUMATIC, NORMOCEPHALIC - Extremities Exam Additional comments: LE focused exam: Vasc: DP/PT pulses non-palpable b/l. Temperature gradient warm to cool, cold to digits b/l. CFT delayed in all digits. No edema noted b/l. Neuro: Gross sensation diminished bilaterally. Derm: Dry eschar noted to distal aspect of right hallux measuring approximately 2 x 1 cm; no drainage; no malodor; no purulence; no fluctuance; minimal erythema noted periwound. Non-blanchable erythema with pinpoint areas of ecchymosis noted to left heel. Ortho: Severe pain on palpation noted to right hallux and left heel. - Neurological Exam Neurological Exam: Oriented x3 Assessment and Plan - Assessment and Plan (Free Text) Assessment: 77 y/o M patient with right hallux dry gangrene, and left heel deep tissue injury Plan: Patient seen and evaluated at the bedside in ICU. Discussed plan with attending, Dr. Ledezma Vitals, labs and charts reviewed; Afebrile and neutropenic (WBC 0.5) No surgical intervention planned at this time F/U vascular recs Continue local wound care - DSD bilateral LE Continue multipodus boots at all times in bed Continue pain control - Tylenol, Lidoderm TD Podiatry will continue to follow patient in house.
[2018-01-15 06:36] LABS: HEMOGLOBIN 7.6 g/dL (12.0-18.0); MEAN CELL VOLUME 86.9 fl (80.0-94.0); MEAN CORPUSCULAR HEMOGLOBIN 29.9 pg (27.0-31.0); MEAN CORPUSCULAR HGB CONC 34.4 g/dL (33.0-37.0); RBC 2.53 Mil/uL (4.40-5.90); RED CELL DISTRIBUTION WIDTH 16.8 % (11.5-14.5)
[2018-01-15 06:45] LABS: WHITE BLOOD COUNT 0.3 K/uL (4.8-10.8)
[2018-01-15 07:14] LABS: ALB/GLOB RATIO 0.8 (1.0-2.1); ALBUMIN 2.3 g/dL (3.5-5.0); CALCIUM 6.9 mg/dL (8.4-10.2)
[2018-01-15] MEDS: Lidocaine 5% Patch TD SCH ×2 (08:11→17:08)
[2018-01-15] MEDS: Insulin Regular 100 units/ml SC SCH ×4 (08:11→22:31)
[2018-01-15] MEDS: Meropenem 500 MG in Sodium Chloride 0.9% 100 ML IVPB SCH ×2 (08:13→20:42)
--- NOTE | 2018-01-15 08:26 | CP.PCM.PN ---
Subjective - Date & Time of Evaluation Date of Evaluation: 01/15/18 Time of Evaluation: 08:15 - Subjective Subjective: Patient evaluated and examined at bedside in the morning. No acute events overnight. Patient still confused,in mild distress, trying to communicate/talk about B/L leg pain and abdominal pain. Hematochezia and hemetemesis present. Platelets(11), RBC(7.6) and WBC(0.3) dropping. Acidosis improving. No CP, SOB, N /V/D/C, fever, and chills. Objective - Vital Signs/Intake and Output Vital Signs (last 24 hours): Temp Pulse Resp BP Pulse Ox 98.6 F 107 H 14 139/60 90 L 01/15/18 08:00 01/15/18 08:00 01/15/18 08:00 01/15/18 08:00 01/15/18 08:00 Intake and Output: 01/15/18 01/15/18 06:59 18:59 Intake Total 795 Output Total 1082 Balance -287 - Medications Medications: Current Medications Acetaminophen (Tylenol 325mg Tab) 650 mg PO Q6 PRN PRN Reason: Pain, Mild (1-3) Dextrose (Dextrose 50% Inj) 0 ml IV STAT PRN; Protocol PRN Reason: Hypoglycemia Protocol Dextrose (Glutose 15) 0 gm PO ONCE PRN; Protocol PRN Reason: Hypoglycemia Protocol Gabapentin (Neurontin) 300 mg PO TID [facility] Last Admin: 01/15/18 08:14 Dose: Not Given Glucagon (Glucagen Diagnostic Kit) 0 mg IM STAT PRN; Protocol PRN Reason: Hypoglycemia Protocol Meropenem 500 mg/ Sodium (Chloride) 100 mls @ 100 mls/hr IVPB Q12 [place] PRN Reason: Protocol Last Admin: 01/15/18 08:13 Dose: 100 mls/hr Pantoprazole Sodium 40 mg/ (Sodium Chloride) 100 mls @ 20 mls/hr IVPB Q5H [place] PRN Reason: 8 MG/HR Last Admin: 01/15/18 08:15 Dose: 20 mls/hr Sodium Bicarbonate 100 meq/ (Sodium Chloride) 1,100 mls @ 75 mls/hr IV .[id number] [facility] Stop: 01/15/18 11:14 Last Admin: 01/14/18 16:33 Dose: 75 mls/hr Insulin Human Regular (Humulin R) 0 units SC ACHS [place] PRN Reason: Protocol Last Admin: 01/15/18 08:11 Dose: Not Given Lidocaine (Lidoderm) 1 ea TD DAILY [facility] Last Admin: 01/15/18 08:11 Dose: 1 ea Morphine Sulfate (Morphine) 1 mg IVP Q6 PRN PRN Reason: Pain, moderate (4-7) Last Admin: 01/15/18 00:24 Dose: 1 mg Ondansetron HCl (Zofran Inj) 4 mg IVP Q6 PRN PRN Reason: Nausea/Vomiting Last Admin: 01/14/18 22:43 Dose: 4 mg - Labs Labs: 01/15/18 04:50 01/15/18 04:50 PT 12.5 Seconds (9.8-13.1) 01/11/18 13:37 INR 1.1 (0.9-1.2) 01/11/18 13:37 APTT 33.6 Seconds (25.6-37.1) 01/11/18 13:37 - Constitutional Appears: Well, In Acute Distress, Confused - Head Exam Head Exam: ATRAUMATIC, NORMAL INSPECTION, NORMOCEPHALIC - Eye Exam Eye Exam: EOMI, Normal appearance, PERRL Pupil Exam: NORMAL ACCOMODATION, PERRL - ENT Exam ENT Exam: Mucous Membranes Moist - Respiratory Exam Respiratory Exam: Clear to Ausculation Bilateral, NORMAL BREATHING PATTERN. absent: Rales, Rhonchi, Wheezes, Respiratory Distress - Cardiovascular Exam Cardiovascular Exam: REGULAR RHYTHM, +S1, +S2. 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 Currently hemodynamically stable Plan: Pancytopenia - Chronic, Uncontrolled - Severe thrombocytopenia and leukopenia - CBC: WBC-0.3, RBC 7.6, Plt 11 - Patient most likely bleeding GI, Hematochezia and hemetemesis noted - s/p 2 PRBC, 2 FFP, 1 platelet(01/13/18) and granix daily - F/U CBC, Vitals, accuchecks. - Will consider PRBC, FFP transfusion today after consult. - Heme/Onc, Dr. Pace, recommendations appreciated - GI consult ordered, Dr. Bowens aware DKA - improving - 1/2 NS to be switched to d5W as per Dr. Phoenix. - Anion gap 17, Gluc 188. - insulin regular Q3h low dose protocol - Check sugar levels Q2H - Hypoglycemia protocol - Endocrinology, Dr Whitney, recommendations appreciated - Monitor Bicarbonate/anion gap/potassium/glucose Sepsis - Afebrile - WBC still decreased(0.3) but received granix last night - CT abdomen/pelvis: Mac colitis, possible cystitis and b/l lower pneumonia. - ID, Dr Bright, recommendations appreciated - Meropenem 500 mg IV Q12h day 5 (renally dosed) - Monitor CBC, CMP MECHELLE - improving, BUN 138, Cr 3.0 - GFR improving(25 from 18) - Possibly due to dehydration/acute on CKD and also due to saline infusion - nephrology, Dr. Austin, recommendations appreciated - d/w marriage and family social worker Dr. Austin, no indication for urgent dialysis, will continue to monitor, dialysis will be started if patient developed hyprekalemia > 6.0 or developed pulm edema, will continue hydration, changed to bicarb drip to keep potassium from rising and to treat metabolic acidosis. Abdominal pain - Afebrile, Abdomen tender, guarding, rigidity + - Will order CT abdomen/pelvis with PO contrast. - Lidoderm patch for abdominal pain. - Morphine 15 mg XR PO BID for leg and abdominal pain. - GI onsult on board. Myelodysplasia (myelodysplastic syndrome) - Seen by Dr. Pace - on hypomethylating agent (decitabine) as outpatient - growth factor and transfusion support Right big toe necrosis/leg pain - podiatry, recommendations appreciated - no surgical intervention at this time - Morphine 15 mg XR PO BID for abdominal pain. - 2 x lidoderm patch each leg for leg pain. HTN - Controlled - Continue home med Prophylactic measures - NO anticoagulant for DVT prophylaxis due to thrombocytopenia - SCDs
[2018-01-15] MEDS ORDERED: Morphine 5 MG/ML SYRINGE IVP PRN (09:15)
--- NOTE | 2018-01-15 09:42 | CP.PCM.PN ---
Subjective - Date & Time of Evaluation Date of Evaluation: 01/15/18 Time of Evaluation: 09:42 - Subjective Subjective: Patient more awake and conscious in bed complaining of chronic pain. Appetite improving somewhat but no vomiting reported is still appears to be dehydrated. Objective - Vital Signs/Intake and Output Vital Signs (last 24 hours): Temp Pulse Resp BP Pulse Ox 98.6 F 107 H 14 139/60 90 L 01/15/18 08:00 01/15/18 08:00 01/15/18 08:00 01/15/18 08:00 01/15/18 08:00 Intake and Output: 01/15/18 01/15/18 06:59 18:59 Intake Total 795 190 Output Total 1082 Balance -287 190 - Medications Medications: Current Medications Acetaminophen (Tylenol 325mg Tab) 650 mg PO Q6 PRN PRN Reason: Pain, Mild (1-3) Dextrose (Dextrose 50% Inj) 0 ml IV STAT PRN; Protocol PRN Reason: Hypoglycemia Protocol Dextrose (Glutose 15) 0 gm PO ONCE PRN; Protocol PRN Reason: Hypoglycemia Protocol Glucagon (Glucagen Diagnostic Kit) 0 mg IM STAT PRN; Protocol PRN Reason: Hypoglycemia Protocol Meropenem 500 mg/ Sodium (Chloride) 100 mls @ 100 mls/hr IVPB Q12 [place] PRN Reason: Protocol Last Admin: 01/15/18 08:13 Dose: 100 mls/hr Pantoprazole Sodium 40 mg/ (Sodium Chloride) 100 mls @ 20 mls/hr IVPB Q5H [facility] PRN Reason: 8 MG/HR Last Admin: 01/15/18 08:15 Dose: 20 mls/hr Sodium Bicarbonate 100 meq/ (Sodium Chloride) 1,100 mls @ 75 mls/hr IV .[id number] [facility] Stop: 01/15/18 11:14 Last Admin: 01/14/18 16:33 Dose: 75 mls/hr Insulin Human Regular (Humulin R) 0 units SC ACHS [facility] PRN Reason: Protocol Last Admin: 01/15/18 08:11 Dose: Not Given Lidocaine (Lidoderm) 1 ea TD DAILY [facility] Last Admin: 01/15/18 08:11 Dose: 1 ea Morphine Sulfate (Morphine) 1 mg IVP Q6 PRN PRN Reason: Pain, moderate (4-7) Morphine Sulfate (Morphine Extended Release Tab) 15 mg PO Q12 [facility] Ondansetron HCl (Zofran Inj) 4 mg IVP Q6 PRN PRN Reason: Nausea/Vomiting Last Admin: 01/14/18 22:43 Dose: 4 mg - Labs Labs: 01/15/18 04:50 01/15/18 04:50 PT 12.5 Seconds (9.8-13.1) 01/11/18 13:37 INR 1.1 (0.9-1.2) 01/11/18 13:37 APTT 33.6 Seconds (25.6-37.1) 01/11/18 13:37 - Constitutional Appears: No Acute Distress - ENT Exam ENT Exam: Mucous Membranes Dry - Neck Exam Neck Exam: absent: Lymphadenopathy - Respiratory Exam Respiratory Exam: absent: Chest Wall Tenderness - GI/Abdominal Exam GI & Abdominal Exam: Soft, Normal Bowel Sounds - Extremities Exam Extremities Exam: absent: Calf Tenderness - Back Exam Back Exam: absent: CVA tenderness (L), CVA tenderness (R) - Neurological Exam Neurological Exam: Awake - Skin Skin Exam: absent: Cyanosis Assessment and Plan (1) MECHELLE (acute kidney injury) Assessment & Plan: Acute kidney injury superimposed on chronic kidney disease stage III perhaps. dehydration improving Hyperkalemia corrected Metabolic acidosis improving continue sodium bicarbonate Pancytopenia Foot ulcer Possible sepsis Myeloproliferative disorder with the status post chemotherapy anemia hypernatremia My recommendation change IV fluid D5 W with amp of sodium bicarbonate at 75 mL/h please discontinue normal saline , sodium has been going up Status: Acute (2) Chronic wound of extremity Status: Acute
[2018-01-15] MEDS: Morphine 15 mg SR Tab PO SCH (12:45)
[2018-01-15] MEDS ORDERED: Iohexol 240 (50 ml) PO ONE (12:51)
--- NOTE | 2018-01-15 13:57 | CP.PCM.PN ---
Subjective - Date & Time of Evaluation Date of Evaluation: 01/15/18 Time of Evaluation: 13:57 - Subjective Subjective: ID Note- Pt. seen and examined today with his son at his bedside. pt. weak and lethargic. as per nurse has been having black stools and is s/p PRBC transfusions and granix x2 but still remains neutropenic and anemic and thrombocytopenic. no diarrhea Objective - Vital Signs/Intake and Output Vital Signs (last 24 hours): Temp Pulse Resp BP Pulse Ox 98.6 F 105 H 20 157/81 H 95 01/15/18 12:00 01/15/18 12:00 01/15/18 12:00 01/15/18 12:00 01/15/18 12:00 Intake and Output: 01/15/18 01/15/18 06:59 18:59 Intake Total 795 570 Output Total 1082 Balance -287 570 - Medications Medications: Current Medications Acetaminophen (Tylenol 325mg Tab) 650 mg PO Q6 PRN PRN Reason: Pain, Mild (1-3) Dextrose (Dextrose 50% Inj) 0 ml IV STAT PRN; Protocol PRN Reason: Hypoglycemia Protocol Dextrose (Glutose 15) 0 gm PO ONCE PRN; Protocol PRN Reason: Hypoglycemia Protocol Glipizide (Glucotrol) 5 mg PO ACBD [place] Glucagon (Glucagen Diagnostic Kit) 0 mg IM STAT PRN; Protocol PRN Reason: Hypoglycemia Protocol Meropenem 500 mg/ Sodium (Chloride) 100 mls @ 100 mls/hr IVPB Q12 [place] PRN Reason: Protocol Last Admin: 01/15/18 08:13 Dose: 100 mls/hr Pantoprazole Sodium 40 mg/ (Sodium Chloride) 100 mls @ 20 mls/hr IVPB Q5H [place] PRN Reason: 8 MG/HR Last Admin: 01/15/18 08:15 Dose: 20 mls/hr Insulin Human Regular (Humulin R) 0 units SC ACHS [place] PRN Reason: Protocol Last Admin: 01/15/18 12:38 Dose: Not Given Lidocaine (Lidoderm) 2 ea TD DAILY [place] Lidocaine (Lidoderm) 1 ea TD DAILY [place] Morphine Sulfate (Morphine) 1 mg IVP Q6 PRN PRN Reason: Pain, moderate (4-7) Morphine Sulfate (Morphine Extended Release Tab) 15 mg PO Q12 [place] Last Admin: 01/15/18 12:45 Dose: 15 mg Nystatin (Nystatin Oral Susp) 5 ml PO QID [place] Ondansetron HCl (Zofran Inj) 4 mg IVP Q6 PRN PRN Reason: Nausea/Vomiting Last Admin: 01/14/18 22:43 Dose: 4 mg - Labs Labs: - Additional Findings Additional findings: - Constitutional Appears: Cachectic, Chronically Ill - Head Exam Head Exam: ATRAUMATIC - Eye Exam Eye Exam: EOMI, PERRL - ENT Exam ENT Exam: Normal Oropharynx - Neck Exam Neck exam: Positive for: Full Rom - Respiratory Exam Respiratory Exam:no wheezing slight decrease in BS in right base - Cardiovascular Exam Cardiovascular Exam: RRR, +S1, +S2 - GI/Abdominal Exam GI & Abdominal Exam: Normal Bowel Sounds, Soft Additional comments: NT, ND - Extremities Exam Additional comments: right distal hallux with necrotic ulcer , no malodor. no surrounding erythema left heel with dry ulcer dark discoloration, no skin breakage - Neurological Exam Neurological exam: Alert, Oriented x 3 skin- sacral ulcer stage 2 about 2 x 2 cm, no malodor, on obvious discharge Laboratory Results - last 72 hr 01/12/18 01/12/18 01/12/18 14:32 14:59 16:03 WBC RBC Hgb Hct MCV MCH MCHC RDW Plt Count Sodium 139 Potassium 5.5 H Chloride 113 H Carbon Dioxide 13 L Anion Gap 19 BUN 186 H* Creatinine 4.9 H Est GFR ( Amer) 14 Est GFR (Non-Af Amer) 12 POC Glucose (mg/dL) 85 88 Random Glucose 79 Hemoglobin A1c Calcium 5.9 L* Phosphorus Total Bilirubin AST ALT Alkaline Phosphatase Total Protein Albumin Globulin Albumin/Globulin Ratio TSH 3rd Generation Blood Type Antibody Screen Crossmatch BBK History Checked 01/12/18 01/12/18 01/12/18 17:02 18:12 18:58 WBC RBC Hgb Hct MCV MCH MCHC RDW Plt Count Sodium Potassium Chloride Carbon Dioxide Anion Gap BUN Creatinine Est GFR ( Amer) Est GFR (Non-Af Amer) POC Glucose (mg/dL) 96 104 134 H Random Glucose Hemoglobin A1c Calcium Phosphorus Total Bilirubin AST ALT Alkaline Phosphatase Total Protein Albumin Globulin Albumin/Globulin Ratio TSH 3rd Generation Blood Type Antibody Screen Crossmatch BBK History Checked 01/12/18 01/12/18 01/12/18 20:12 21:02 22:03 WBC RBC Hgb Hct MCV MCH MCHC RDW Plt Count Sodium Potassium Chloride Carbon Dioxide Anion Gap BUN Creatinine Est GFR ( Amer) Est GFR (Non-Af Amer) POC Glucose (mg/dL) 170 H 172 H 147 H Random Glucose Hemoglobin A1c Calcium Phosphorus Total Bilirubin AST ALT Alkaline Phosphatase Total Protein Albumin Globulin Albumin/Globulin Ratio TSH 3rd Generation Blood Type Antibody Screen Crossmatch BBK History Checked 01/12/18 01/12/18 01/13/18 23:02 23:56 00:54 WBC RBC Hgb Hct MCV MCH MCHC RDW Plt Count Sodium Potassium Chloride Carbon Dioxide Anion Gap BUN Creatinine Est GFR ( Amer) Est GFR (Non-Af Amer) POC Glucose (mg/dL) 126 H 131 H 183 H Random Glucose Hemoglobin A1c Calcium Phosphorus Total Bilirubin AST ALT Alkaline Phosphatase Total Protein Albumin Globulin Albumin/Globulin Ratio TSH 3rd Generation Blood Type Antibody Screen Crossmatch BBK History Checked 01/13/18 01/13/18 01/13/18 01:54 03:02 04:05 WBC RBC Hgb Hct MCV MCH MCHC RDW Plt Count Sodium Potassium Chloride Carbon Dioxide Anion Gap BUN Creatinine Est GFR ( Amer) Est GFR (Non-Af Amer) POC Glucose (mg/dL) 233 H 190 H 184 H Random Glucose Hemoglobin A1c Calcium Phosphorus Total Bilirubin AST ALT Alkaline Phosphatase Total Protein Albumin Globulin Albumin/Globulin Ratio TSH 3rd Generation Blood Type Antibody Screen Crossmatch BBK History Checked 01/13/18 01/13/18 01/13/18 04:12 04:12 04:12 WBC 0.6 L* RBC 2.14 L Hgb 6.5 L* D Hct 19.1 L MCV 89.3 MCH 30.5 MCHC 34.1 RDW 16.1 H Plt Count 8 L* D Sodium 140 Potassium 5.2 H Chloride 114 H Carbon Dioxide 9 L* D Anion Gap 22 H BUN 175 H* Creatinine 4.6 H Est GFR ( Amer) 15 Est GFR (Non-Af Amer) 12 POC Glucose (mg/dL) Random Glucose 176 H Hemoglobin A1c 7.3 H Calcium 6.0 L* Phosphorus 7.2 H Total Bilirubin 0.4 AST 12 L ALT 20 L D Alkaline Phosphatase 39 Total Protein 4.6 L Albumin 1.9 L Globulin 2.7 Albumin/Globulin Ratio 0.7 L TSH 3rd Generation 3.69 Blood Type Antibody Screen Crossmatch BBK History Checked 01/13/18 01/13/18 01/13/18 05:01 05:59 06:42 WBC RBC Hgb Hct MCV MCH MCHC RDW Plt Count Sodium Potassium Chloride Carbon Dioxide Anion Gap BUN Creatinine Est GFR ( Amer) Est GFR (Non-Af Amer) POC Glucose (mg/dL) 172 H 176 H 165 H Random Glucose Hemoglobin A1c Calcium Phosphorus Total Bilirubin AST ALT Alkaline Phosphatase Total Protein Albumin Globulin Albumin/Globulin Ratio TSH 3rd Generation Blood Type Antibody Screen Crossmatch BBK History Checked 01/13/18 01/13/18 01/13/18 07:45 08:17 09:01 WBC RBC Hgb Hct MCV MCH MCHC RDW Plt Count Sodium Potassium Chloride Carbon Dioxide Anion Gap BUN Creatinine Est GFR ( Amer) Est GFR (Non-Af Amer) POC Glucose (mg/dL) 148 H 102 Random Glucose Hemoglobin A1c Calcium Phosphorus Total Bilirubin AST ALT Alkaline Phosphatase Total Protein Albumin Globulin Albumin/Globulin Ratio TSH 3rd Generation Blood Type O POSITIVE Antibody Screen Negative Crossmatch See Detail BBK History Checked Patient has bt 01/13/18 01/13/18 01/13/18 10:16 11:12 12:08 WBC RBC Hgb Hct MCV MCH MCHC RDW Plt Count Sodium Potassium Chloride Carbon Dioxide Anion Gap BUN Creatinine Est GFR ( Amer) Est GFR (Non-Af Amer) POC Glucose (mg/dL) 125 H 125 H 131 H Random Glucose Hemoglobin A1c Calcium Phosphorus Total Bilirubin AST ALT Alkaline Phosphatase Total Protein Albumin Globulin Albumin/Globulin Ratio TSH 3rd Generation Blood Type Antibody Screen Crossmatch BBK History Checked 01/13/18 01/13/18 01/13/18 14:57 18:12 19:44 WBC RBC Hgb Hct MCV MCH MCHC RDW Plt Count Sodium 142 Potassium 5.0 Chloride 115 H Carbon Dioxide 10 L* Anion Gap 22 H BUN 170 H* Creatinine 4.0 H Est GFR ( Amer) 18 Est GFR (Non-Af Amer) 15 POC Glucose (mg/dL) 176 H 168 H Random Glucose 166 H Hemoglobin A1c Calcium 6.1 L Phosphorus Total Bilirubin AST ALT Alkaline Phosphatase Total Protein Albumin Globulin Albumin/Globulin Ratio TSH 3rd Generation Blood Type Antibody Screen Crossmatch BBK History Checked 01/13/18 01/14/18 01/14/18 21:46 00:46 00:47 WBC RBC Hgb Hct MCV MCH MCHC RDW Plt Count Sodium Potassium Chloride Carbon Dioxide Anion Gap BUN Creatinine Est GFR ( Amer) Est GFR (Non-Af Amer) POC Glucose (mg/dL) 178 H 399 H 194 H Random Glucose Hemoglobin A1c Calcium Phosphorus Total Bilirubin AST ALT Alkaline Phosphatase Total Protein Albumin Globulin Albumin/Globulin Ratio TSH 3rd Generation Blood Type Antibody Screen Crossmatch BBK History Checked 01/14/18 01/14/18 01/14/18 01:30 02:46 04:18 WBC 0.5 L* 0.5 L* RBC 2.85 L 2.72 L Hgb 8.5 L D 8.0 L Hct 25.4 L 23.5 L MCV 89.1 86.6 D MCH 30.0 29.3 MCHC 33.6 33.9 RDW 16.6 H 16.5 H Plt Count 41 L D 35 L Sodium Potassium Chloride Carbon Dioxide Anion Gap BUN Creatinine Est GFR ( Amer) Est GFR (Non-Af Amer) POC Glucose (mg/dL) 235 H Random Glucose Hemoglobin A1c Calcium Phosphorus Total Bilirubin AST ALT Alkaline Phosphatase Total Protein Albumin Globulin Albumin/Globulin Ratio TSH 3rd Generation Blood Type Antibody Screen Crossmatch BBK History Checked 01/14/18 01/14/18 01/14/18 04:18 06:18 08:53 WBC RBC Hgb Hct MCV MCH MCHC RDW Plt Count Sodium 147 Potassium 4.4 Chloride 116 H Carbon Dioxide 14 L Anion Gap 21 H BUN 155 H* Creatinine 3.7 H Est GFR ( Amer) 19 Est GFR (Non-Af Amer) 16 POC Glucose (mg/dL) 189 H 200 H Random Glucose 181 H Hemoglobin A1c Calcium 6.3 L Phosphorus Total Bilirubin 1.0 AST 16 L D ALT 22 Alkaline Phosphatase 47 Total Protein 5.1 L Albumin 2.4 L D Globulin 2.6 Albumin/Globulin Ratio 0.9 L TSH 3rd Generation Blood Type Antibody Screen Crossmatch BBK History Checked 01/14/18 01/14/18 01/15/18 15:58 21:54 04:50 WBC 0.3 L* RBC 2.53 L Hgb 7.6 L Hct 21.9 L MCV 86.9 MCH 29.9 MCHC 34.4 RDW 16.8 H Plt Count 11 L* D Sodium Potassium Chloride Carbon Dioxide Anion Gap BUN Creatinine Est GFR ( Amer) Est GFR (Non-Af Amer) POC Glucose (mg/dL) 204 H 202 H Random Glucose Hemoglobin A1c Calcium Phosphorus Total Bilirubin AST ALT Alkaline Phosphatase Total Protein Albumin Globulin Albumin/Globulin Ratio TSH 3rd Generation Blood Type Antibody Screen Crossmatch BBK History Checked 01/15/18 01/15/18 01/15/18 04:50 06:38 12:19 WBC RBC Hgb Hct MCV MCH MCHC RDW Plt Count Sodium 151 H Potassium 3.8 Chloride 120 H Carbon Dioxide 18 L Anion Gap 17 BUN 138 H* Creatinine 3.0 H Est GFR ( Amer) 25 Est GFR (Non-Af Amer) 20 POC Glucose (mg/dL) 199 H 208 H Random Glucose 188 H Hemoglobin A1c Calcium 6.9 L Phosphorus Total Bilirubin 1.4 H AST 10 L D ALT 19 L Alkaline Phosphatase 46 Total Protein 5.1 L Albumin 2.3 L Globulin 2.8 Albumin/Globulin Ratio 0.8 L TSH 3rd Generation Blood Type Antibody Screen Crossmatch BBK History Checked Microbiology 01/11/18 14:44 Blood Blood Culture - Preliminary NO GROWTH AFTER 4 DAYS 01/12/18 21:06 Sputum Gram Stain - Final 01/12/18 21:06 Sputum Sputum Culture - Preliminary Gram Negative Raghav Yeast Species 01/11/18 14:05 Blood Blood Culture - Preliminary NO GROWTH AFTER 3 DAYS 01/11/18 08:25 Naris MRSA Culture (Admit) - Final MRSA NOT DETECTED 01/11/18 12:30 Urine Urine Culture - Final No Growth (<1,000 CFU/ML) Assessment and Plan (1) MECHELLE (acute kidney injury) Status: Acute (2) Chronic wound of extremity Status: Acute (3) Pancytopenia Status: Acute - Assessment and Plan (Free Text) Assessment: A/P- 77 year old male with multiple medical conditions including DM II, chronic Right erlin toe necrotic Ulcer ,? OM , pancytopenia, MDS s/p first chemo admitted with nausea/vomiting, high lactate and glucose found to be in DKA, acute renal insufficiency, hyperkalemic. afebrile pancytopenia- secondary to MDS GISSEL[place] improving ct abd report-pancolitis and ? bibasilar infiltrates as per report read by radiologist. foot xray- No obvious OM, osteoarthritis blood cx- neg x 2 urine cx- neg sputum cx- GNR and yeast prelim Plan- continue with IV meropenem empirically for nosocomial coverage in light of recently being in [facility] and abd/pelvic CT report of ? colitis/cystitis and also since pt. is neutropenic. day #5 the chronic foot diabetic ulcer was treated already with IV vanco and zosyn for 20 days. local wound care as per podiatry. DKA and acidosis management as per ICU team. sacral decub to be evaluated by wound nurse. GI bleed management as per GI. advise to get cx of the sacral wound as well. All above d/w patient and his son who is at bedside at length. All above also d/w DR.Pierre Guzmán at length. ICU time 45 min.
[2018-01-15] MEDS ORDERED: Morphine 5 MG/ML SYRINGE IVP SCH (17:00)
[2018-01-15] MEDS: Nystatin 100,000 Units/ml Oral Susp 5 ml UD PO SCH ×2 (17:10→22:32)
--- NOTE | 2018-01-15 17:13 | CT ---
Date of service: 01/15/2018 PROCEDURE: CT Abdomen and Pelvis with contrast HISTORY: Unspecified abdominal pain. COMPARISON: None. TECHNIQUE: Oral contrast only. Radiation dose: Total exam DLP = 1569.46 MGy-cm. This CT exam was performed using one or more of the following dose reduction techniques: Automated exposure control, adjustment of the mA and/or kV according to patient size, and/or use of iterative reconstruction technique. FINDINGS: LOWER THORAX: Trace infiltrates and pleural effusions. LIVER: Unremarkable. No gross lesion or ductal dilatation. GALLBLADDER AND BILE DUCTS: Unremarkable. PANCREAS: Unremarkable. No gross lesion or ductal dilatation. SPLEEN: Unremarkable. ADRENALS: Unremarkable. No mass. KIDNEYS AND URETERS: Right kidney: No significant interval change compared to the prior examination(s). Left kidney: Unremarkable. VASCULATURE: Unremarkable. No aortic aneurysm. BOWEL: Diffuse mural thickening of the colon consistent with moderate -severe pain colitis. APPENDIX: Normal appendix. PERITONEUM: Stable intra-abdominal and pelvic ascites. LYMPH NODES: Unremarkable. No enlarged lymph nodes. BLADDER: Unremarkable. REPRODUCTIVE: Unremarkable. BONES: No acute fracture. OTHER FINDINGS: Subcutaneous edema and anasarca are unchanged. IMPRESSION: Moderate -severe willard colitis without appreciable interval change compared to the prior study. Stable intra-abdominal and pelvic ascites.
--- NOTE | 2018-01-15 17:26 | PN ---
DATE: 01/15/2018 ENDO FOLLOWUP NOTE LOCATION: In ICU room 424. SUBJECTIVE: This is a 77-year-old male with recent progressive renal insufficiency and concomitant marked pancytopenia with known history of myelodysplastic syndrome and recent chemotherapy undertaken, presenting here with persistent metabolic acidosis that has since then improved clinically and metabolically as noted thereof. He was initially placed on an insulin drip infusion with vigorous IV hydration and has improved remarkably also with sodium bicarb infusion as given. LABORATORY DATA: His latest chemistries today showed a BUN of 138, sodium 151, potassium 3.8, chloride 120, CO2 is 17, glucose is 188, and creatinine is 3. His WBC is 0.3, hemoglobin of 7.6, hematocrit of 21, MCV 86, and platelets 11,000. ASSESSMENT AND PLAN: So at this time, we will continue the very low-dose correction scale using regular insulin as given, done four times a day as ordered. We will add glipizide given as 5 mg b.i.d. before meals because of the variability of his oral intake and titrate accordingly to optimize metabolic control. We will obtain serial chemistries and supplement accordingly as needed. We will follow. Umu Whitney MD
--- NOTE | 2018-01-15 19:39 | CP.PCM.CON ---
History of Present Illness - History of Present Illness History of Present Illness: 77 yo male with multiple medical problems including DKA ,osteomyelitis and MDS noted to have melena for the past 2 days. At that time platelet count fell to under 10K. Also having abdominal pain and CT showed colitis. Review of Systems - Review of Systems Systems not reviewed;Unavailable: Acuity of Condition Past Patient History - Infectious Disease Hx of Infectious Diseases: None - Tetanus Immunizations Tetanus Immunization: Unknown - Past Medical History & Family History Past Medical History?: Yes - Past Social History Alcohol: None Drugs: Denies - CARDIAC Hx Hypercholesterolemia: Yes Hx Hypertension: Yes - PULMONARY Hx Respiratory Disorders: No - NEUROLOGICAL Hx Neurological Disorder: No - HEENT Hx HEENT Problems: No - RENAL Hx Chronic Kidney Disease: Yes Hx Kidney Stones: Yes - ENDOCRINE/METABOLIC Hx Diabetes Mellitus Type 2: Yes - HEMATOLOGICAL/ONCOLOGICAL Hx Anemia: Yes Hx Human Immunodeficiency Virus (HIV): No - INTEGUMENTARY Hx Dermatological Problems: No - MUSCULOSKELETAL/RHEUMATOLOGICAL Hx Musculoskeletal Disorders: Yes Hx Falls: Yes 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) - GASTROINTESTINAL Hx Gastrointestinal Disorders: No - GENITOURINARY/GYNECOLOGICAL Hx Genitourinary Disorders: No - PSYCHIATRIC Hx Depression: Yes - SURGICAL HISTORY Other/Comment: Bunion - ANESTHESIA Hx Anesthesia: Yes Hx Anesthesia Reactions: No Meds Allergies/Adverse Reactions: Allergies Allergy/AdvReac Type Severity Reaction Status Date / Time No Known Allergies Allergy Verified 01/11/18 11:58 - Medications Medications: Current Medications Acetaminophen (Tylenol 325mg Tab) 650 mg PO Q6 PRN PRN Reason: Pain, Mild (1-3) Dextrose (Dextrose 50% Inj) 0 ml IV STAT PRN; Protocol PRN Reason: Hypoglycemia Protocol Dextrose (Glutose 15) 0 gm PO ONCE PRN; Protocol PRN Reason: Hypoglycemia Protocol Glipizide (Glucotrol) 5 mg PO ACBD [facility] Last Admin: 01/15/18 17:08 Dose: 5 mg Glucagon (Glucagen Diagnostic Kit) 0 mg IM STAT PRN; Protocol PRN Reason: Hypoglycemia Protocol Meropenem 500 mg/ Sodium (Chloride) 100 mls @ 100 mls/hr IVPB Q12 [place] PRN Reason: Protocol Last Admin: 01/15/18 08:13 Dose: 100 mls/hr Pantoprazole Sodium 40 mg/ (Sodium Chloride) 100 mls @ 20 mls/hr IVPB Q5H [place] PRN Reason: 8 MG/HR Last Admin: 01/15/18 14:54 Dose: 20 mls/hr Insulin Human Regular (Humulin R) 0 units SC ACHS [place] PRN Reason: Protocol Last Admin: 01/15/18 16:49 Dose: Not Given Lidocaine (Lidoderm) 2 ea TD DAILY [place] Lidocaine (Lidoderm) 1 ea TD DAILY [place] Last Admin: 01/15/18 17:08 Dose: 1 ea Morphine Sulfate (Morphine Extended Release Tab) 15 mg PO Q12 [place] Last Admin: 01/15/18 12:45 Dose: 15 mg Morphine Sulfate (Morphine) 2 mg IVP Q4H [facility] Nystatin (Nystatin Oral Susp) 5 ml PO QID [place] Last Admin: 01/15/18 17:10 Dose: 5 ml Ondansetron HCl (Zofran Inj) 4 mg IVP Q6 PRN PRN Reason: Nausea/Vomiting Last Admin: 01/14/18 22:43 Dose: 4 mg Physical Exam - Constitutional Appears: Older Than Stated Age, Chronically Ill - Head Exam Head Exam: ATRAUMATIC - Eye Exam Eye Exam: EOMI - ENT Exam ENT Exam: Mucous Membranes Moist - Respiratory Exam Respiratory Exam: Clear to Auscultation Bilateral - Cardiovascular Exam Cardiovascular Exam: REGULAR RHYTHM - GI/Abdominal Exam GI & Abdominal Exam: Normal Bowel Sounds, Tenderness Results - Vital Signs Recent Vital Signs: Last Vital Signs Temp 98.0 F 01/15/18 19:15 Pulse 105 H 01/15/18 19:15 Resp 13 01/15/18 19:15 BP 168/80 H 01/15/18 19:15 Pulse Ox 100 01/15/18 18:00 - Labs Result Diagrams: 01/15/18 04:50 01/15/18 04:50 Labs: Laboratory Results - last 24 hr 01/13/18 01/13/18 01/13/18 04:12 04:12 07:45 WBC RBC Hgb Hct MCV MCH MCHC RDW Plt Count Sodium Potassium Chloride Carbon Dioxide Anion Gap BUN Creatinine Est GFR ( Amer) Est GFR (Non-Af Amer) POC Glucose (mg/dL) Random Glucose Hemoglobin A1c 7.3 H Calcium Total Bilirubin AST ALT Alkaline Phosphatase Total Protein Albumin Globulin Albumin/Globulin Ratio PTH Intact Whole Molec 291 H Blood Type O POSITIVE Antibody Screen Negative Crossmatch See Detail BBK History Checked Patient has bt 01/13/18 01/13/18 01/13/18 10:16 11:12 12:08 WBC RBC Hgb Hct MCV MCH MCHC RDW Plt Count Sodium Potassium Chloride Carbon Dioxide Anion Gap BUN Creatinine Est GFR ( Amer) Est GFR (Non-Af Amer) POC Glucose (mg/dL) 125 H 125 H 131 H Random Glucose Hemoglobin A1c Calcium Total Bilirubin AST ALT Alkaline Phosphatase Total Protein Albumin Globulin Albumin/Globulin Ratio PTH Intact Whole Molec Blood Type Antibody Screen Crossmatch BBK History Checked 01/13/18 01/13/18 01/13/18 14:57 18:12 21:46 WBC RBC Hgb Hct MCV MCH MCHC RDW Plt Count Sodium Potassium Chloride Carbon Dioxide Anion Gap BUN Creatinine Est GFR ( Amer) Est GFR (Non-Af Amer) POC Glucose (mg/dL) 176 H 168 H 178 H Random Glucose Hemoglobin A1c Calcium Total Bilirubin AST ALT Alkaline Phosphatase Total Protein Albumin Globulin Albumin/Globulin Ratio PTH Intact Whole Molec Blood Type Antibody Screen Crossmatch BBK History Checked 01/14/18 01/14/18 01/14/18 00:46 00:47 02:46 WBC RBC Hgb Hct MCV MCH MCHC RDW Plt Count Sodium Potassium Chloride Carbon Dioxide Anion Gap BUN Creatinine Est GFR ( Amer) Est GFR (Non-Af Amer) POC Glucose (mg/dL) 399 H 194 H 235 H Random Glucose Hemoglobin A1c Calcium Total Bilirubin AST ALT Alkaline Phosphatase Total Protein Albumin Globulin Albumin/Globulin Ratio PTH Intact Whole Molec Blood Type Antibody Screen Crossmatch BBK History Checked 01/14/18 01/14/18 01/14/18 06:18 08:53 15:58 WBC RBC Hgb Hct MCV MCH MCHC RDW Plt Count Sodium Potassium Chloride Carbon Dioxide Anion Gap BUN Creatinine Est GFR ( Amer) Est GFR (Non-Af Amer) POC Glucose (mg/dL) 189 H 200 H 204 H Random Glucose Hemoglobin A1c Calcium Total Bilirubin AST ALT Alkaline Phosphatase Total Protein Albumin Globulin Albumin/Globulin Ratio PTH Intact Whole Molec Blood Type Antibody Screen Crossmatch BBK History Checked 01/14/18 01/15/18 01/15/18 21:54 04:50 04:50 WBC 0.3 L* RBC 2.53 L Hgb 7.6 L Hct 21.9 L MCV 86.9 MCH 29.9 MCHC 34.4 RDW 16.8 H Plt Count 11 L* D Sodium 151 H Potassium 3.8 Chloride 120 H Carbon Dioxide 18 L Anion Gap 17 BUN 138 H* Creatinine 3.0 H Est GFR ( Amer) 25 Est GFR (Non-Af Amer) 20 POC Glucose (mg/dL) 202 H Random Glucose 188 H Hemoglobin A1c Calcium 6.9 L Total Bilirubin 1.4 H AST 10 L D ALT 19 L Alkaline Phosphatase 46 Total Protein 5.1 L Albumin 2.3 L Globulin 2.8 Albumin/Globulin Ratio 0.8 L PTH Intact Whole Molec Blood Type Antibody Screen Crossmatch BBK History Checked 01/15/18 01/15/18 01/15/18 06:38 12:19 16:45 WBC RBC Hgb Hct MCV MCH MCHC RDW Plt Count Sodium Potassium Chloride Carbon Dioxide Anion Gap BUN Creatinine Est GFR ( Amer) Est GFR (Non-Af Amer) POC Glucose (mg/dL) 199 H 208 H 212 H Random Glucose Hemoglobin A1c Calcium Total Bilirubin AST ALT Alkaline Phosphatase Total Protein Albumin Globulin Albumin/Globulin Ratio PTH Intact Whole Molec Blood Type Antibody Screen Crossmatch BBK History Checked Assessment & Plan (1) Melena Assessment and Plan: Patient with melena which started at the same time platelets dropped. Support with PRBC and try to keep platelets at least above 20-30K. Status: Acute (2) Colitis Assessment and Plan: CT c/w colitis. Possibly from neutropenia. Patient receiving abx as per ID. Status: Acute
--- NOTE | 2018-01-15 20:00 | PN ---
DATE: 01/15/2018 CRITICAL CARE PROGRESS NOTE LOCATION: The patient in ICU bed 424. TIME SPENT: 35 minutes. The patient is seen and evaluated at the bedside. Past medical, surgical, social and family history reviewed. SUBJECTIVE: A 77-year-old male with myelodysplastic syndrome, diabetes mellitus type 2, hypertension, hyperlipidemia, diabetic retinopathy, polyneuropathy, chronic kidney disease, peripheral vascular disease, probable osteomyelitis involving right foot, undergoing chemo with significant pancytopenia, admitted with abdominal pain and hematemesis and hematochezia; however, night normotensive, afebrile. No further nausea or vomiting. Still having three bowel movements, dark brown associated with abdominal pain, reduced p.o. intake. Complaining of pain and reduced range of motion of both lower extremities. PHYSICAL EXAMINATION: VITAL SIGNS: Temperature 98.6, heart rate 93-107, blood pressure 139/60, mean arterial pressure 86, respiratory rate 14, oxygen saturation 92% on 100% on room air. Intake 2420, output 2382, positive balance 38, weight 122 pounds. HEAD, EYE, EAR, NOSE AND THROAT: Pupils reactive. Conjunctivae pale. Sclerae anicteric. NECK: Supple. Trachea central. CHEST: Bilateral breath sounds. Clear to auscultation. HEART: Rhythm regular. S1 and S2 normal intensity. No S3, S4, gallop. No audible murmur. ABDOMEN: Bowel sounds present, mildly distended. EXTREMITIES: Right distal hallux with necrotic ulcer. Dressing intact. Left heel with dry ulcer with dark discoloration. DP reduced in intensity. NEUROLOGIC: Confused. Follows commands. Moves all four extremities. CURRENT MEDICATIONS: _ mg per hour, Zofran 4 mg IV every 6 hours p.r.n., morphine 50 mg p.o. every 12 hours for pain, meropenem 500 mg IV every 12 hours, Lidoderm one each daily, Humulin R based on Accu-Chek a.c. and at bedtime. LABORATORY DATA: WBC 0.3, hemoglobin 7.6, hematocrit 21.9, and platelet count 11. PT 12.4, INR 1.1, PTT 33.6. SMA-7: Sodium 151, potassium 3.8, chloride 120, CO2 of 18, blood urea nitrogen 138, creatinine 3, random glucose 188, calcium 6.9, albumin 2.3, AST 10, ALT 19, alkaline phosphatase 46. Urinalysis; rbc 168, wbc 11. Microbiology; sputum culture positive for gram-negative rods and yeast species. Blood culture, no growth reported. Urine culture, no growth reported. Chest x-ray done on 01/13/2018, no active disease. IMPRESSION AND PLAN: Diabetic ketoacidosis, has been off the drip. Continue insulin a.c. and at bedtime. Neurologic: Remains confused secondary to septic metabolic encephalopathy. Pulmonary: No acute issues and ordered chest x-ray with no infiltrate. Cardiac: Normotensive. No cardiac arrhythmias. Gastrointestinal: Hematemesis and hematochezia, on Protonix. Gastroenterology on board. Continue Protonix and monitor. Renal: Acute on chronic kidney disease, superimposed dehydration, on intravenous fluid. Acidosis, improving on sodium bicarbonate. Appreciate renal followup. Recommend changing intravenous fluid to D5W with sodium bicarbonate. Infectious disease: Osteomyelitis, on broad-spectrum antibiotics. Peripheral vascular disease. Poor surgical candidate for amputation. Continue deep vein thrombosis prophylaxis. Hold anticoagulation secondary to gastrointestinal bleed. Hematology: Pancytopenia secondary to myelodysplastic syndrome, on chemotherapy, followed by Hematology/Oncology. Rafael Hill MD ROSHAN
[2018-01-15] MEDS ORDERED: HYDROmorphone 1 mg/ml ISec IVP PRN (21:36)
[2018-01-16] MEDS: Pantoprazole 40 MG in Sodium Chloride 0.9% 100 ML IVPB SCH ×5 (01:52→20:19)
[2018-01-16 05:06] LABS: HEMOGLOBIN 8.5 g/dL (12.0-18.0); MEAN CELL VOLUME 87.6 fl (80.0-94.0); MEAN CORPUSCULAR HEMOGLOBIN 29.8 pg (27.0-31.0); RBC 2.85 Mil/uL (4.40-5.90); RED CELL DISTRIBUTION WIDTH 16.5 % (11.5-14.5)
[2018-01-16 05:20] LABS: WHITE BLOOD COUNT 0.2 K/uL (4.8-10.8)
[2018-01-16 05:33] LABS: ALB/GLOB RATIO 0.8 (1.0-2.1); ALBUMIN 2.3 g/dL (3.5-5.0); CALCIUM 7.2 mg/dL (8.4-10.2)
[2018-01-16] MEDS ORDERED: Potassium Chloride 20 mEq 100 ML IVPB ONE (07:00)
[2018-01-16] MEDS: Meropenem 500 MG in Sodium Chloride 0.9% 100 ML IVPB SCH ×2 (08:28→20:20)
[2018-01-16] MEDS: Lidocaine 5% Patch TD SCH ×2 (08:31→08:38)
[2018-01-16] MEDS: Morphine 15 mg SR Tab PO SCH ×3 (08:35→21:07)
[2018-01-16] MEDS: Insulin Regular 100 units/ml SC SCH ×4 (08:38→21:08)
[2018-01-16] MEDS: Nystatin 100,000 Units/ml Oral Susp 5 ml UD PO SCH ×4 (08:39→21:10)
--- NOTE | 2018-01-16 08:59 | CP.PCM.PN ---
Subjective - Date & Time of Evaluation Date of Evaluation: 01/16/18 Time of Evaluation: 08:30 - Subjective Subjective: Patient evaluated and examined at bedside in the morning. No acute distress. No acute events overnight. Patient communicating with son. Confusion improved. Abdominal pain mildly improved with morphine and lidoderm patch. Leg pain significantly improved. Hematochezia and hemetemesis still present. WBC still dropping. Platelets improved after transfusion. RBC improving. No CP, SOB, nausea, vomiting, diarrhea, constipation, fever, chills. Objective - Vital Signs/Intake and Output Vital Signs (last 24 hours): Temp Pulse Resp BP Pulse Ox 98.2 F 110 H 20 144/68 100 01/16/18 08:00 01/16/18 08:00 01/16/18 08:00 01/16/18 08:00 01/16/18 08:00 Intake and Output: 01/16/18 01/16/18 06:59 18:59 Intake Total 1499 Output Total 1400 Balance 99 - Medications Medications: Current Medications Acetaminophen (Tylenol 325mg Tab) 650 mg PO Q6 PRN PRN Reason: Pain, Mild (1-3) Dextrose (Dextrose 50% Inj) 0 ml IV STAT PRN; Protocol PRN Reason: Hypoglycemia Protocol Dextrose (Glutose 15) 0 gm PO ONCE PRN; Protocol PRN Reason: Hypoglycemia Protocol Glipizide (Glucotrol) 5 mg PO ACBD [facility] Last Admin: 01/16/18 08:37 Dose: 5 mg Glucagon (Glucagen Diagnostic Kit) 0 mg IM STAT PRN; Protocol PRN Reason: Hypoglycemia Protocol Hydromorphone HCl (Dilaudid) 1 mg IVP Q4 PRN PRN Reason: Pain, moderate (4-7) Last Admin: 01/15/18 21:48 Dose: 1 mg Meropenem 500 mg/ Sodium (Chloride) 100 mls @ 100 mls/hr IVPB Q12 [facility] PRN Reason: Protocol Last Admin: 01/16/18 08:28 Dose: 100 mls/hr Pantoprazole Sodium 40 mg/ (Sodium Chloride) 100 mls @ 20 mls/hr IVPB Q5H [facility] PRN Reason: 8 MG/HR Last Admin: 01/16/18 08:27 Dose: 20 mls/hr Potassium Chloride (Potassium Chloride 20 Meq/100 Ml) 100 mls @ 50 mls/hr IVPB ONCE ONE Stop: 01/16/18 08:59 Sodium Bicarbonate 1 meq/ (Dextrose) 1,001 mls @ 75 mls/hr IV .[id number] [facility] Stop: 01/17/18 07:48 Insulin Human Regular (Humulin R) 0 units SC ACHS [place] PRN Reason: Protocol Last Admin: 01/16/18 08:38 Dose: Not Given Lidocaine (Lidoderm) 2 ea TD DAILY [facility] Last Admin: 01/16/18 08:31 Dose: 2 ea Lidocaine (Lidoderm) 1 ea TD DAILY [facility] Last Admin: 01/16/18 08:38 Dose: 1 ea Morphine Sulfate (Morphine Extended Release Tab) 15 mg PO Q12 [facility] Last Admin: 01/16/18 08:35 Dose: 15 mg Nystatin (Nystatin Oral Susp) 5 ml PO QID [facility] Last Admin: 01/16/18 08:39 Dose: 5 ml Ondansetron HCl (Zofran Inj) 4 mg IVP Q6 PRN PRN Reason: Nausea/Vomiting Last Admin: 01/14/18 22:43 Dose: 4 mg - Labs Labs: 01/16/18 04:30 01/16/18 04:30 PT 12.5 Seconds (9.8-13.1) 01/11/18 13:37 INR 1.1 (0.9-1.2) 01/11/18 13:37 APTT 33.6 Seconds (25.6-37.1) 01/11/18 13:37 - Constitutional Appears: Well, Non-toxic, No Acute Distress - Head Exam Head Exam: ATRAUMATIC, NORMAL INSPECTION, NORMOCEPHALIC - Eye Exam Eye Exam: EOMI, Normal appearance Pupil Exam: NORMAL ACCOMODATION, PERRL - ENT Exam ENT Exam: Mucous Membranes Moist - Respiratory Exam Respiratory Exam: Clear to Ausculation Bilateral, NORMAL BREATHING PATTERN. absent: Rales, Rhonchi, Wheezes, Respiratory Distress - Cardiovascular Exam Cardiovascular Exam: Tachycardia, REGULAR RHYTHM, +S1, +S2. absent: Murmur - GI/Abdominal Exam GI & Abdominal Exam: Distended, Guarding, Rigid, Tenderness, Normal Bowel Sounds - Rectal Exam Rectal Exam: Black Stool - Neurological Exam Neurological Exam: Alert, Awake, Oriented x3 - Psychiatric Exam Psychiatric exam: Normal Affect, Normal Mood - Skin Skin Exam: Dry, Intact, Normal Color Additional comments: STage 2 pressure ulcer sacrum Assessment and Plan - Assessment and Plan (Free Text) Assessment: 77 y/o man w/ pmh of myelodysplastic syndrome, with sec pancytopenia, CKD HTN, DM, Chronic right great toe ulcration with osteomyeloitis admitted for managment of DKA. Currently hemodynamically stable Plan: Pancytopenia - Chronic, Uncontrolled - Severe thrombocytopenia and leukopenia - CBC: WBC-0.2, RBC 8.5, Plt 27 - Received platelet transfusion yesterday. - RBC improving, probable response to Procrit - Continues to have Hematochezia and hemetemesis - Continue Granix daily - F/U CBC, Vitals, accuchecks. - Heme/Onc, Dr. Pace, recommendations appreciated - GI consult Dr. Bowens aware: recommendations appreciated DKA - improving - Switch to D5W from 1/2 NS due to hypernatremia. - Anion gap 15, Gluc 125. - Check sugar levels Q2H - insulin regular Q3h low dose protocol - Hypoglycemia protocol - Start Glipizide 5 mg PO BID - Endocrinology, Dr Whitney, recommendations appreciated - Monitor Bicarbonate/anion gap/potassium/glucose Hypernatremia - Assymptomatic - Worsening, Last Na+ 155 - D/C NS C/W D5W - Monitor BMP Hypokelemia - Last K+ 3.3 - Started on KCL 10meq/50 ml D5W - Monitor BMP Sepsis - Afebrile - WBC still decreased(0.2) - CT abdomen/pelvis: moderate to severe colitis - ID, Dr Bright, recommendations appreciated - Meropenem 500 mg IV Q12h day 6 (renally dosed) - Monitor CBC, CMP - As per GI, Continue protonix, follow ID trevor. MECHELLE - improving, BUN 109, Cr 2.4 - GFR improving - Possibly due to dehydration/acute on CKD and also due to saline infusion - Nephrology Dr. Austin on board: Will follow recommendations Abdominal pain - Afebrile, Abdomen tender, guarding, rigidity + - Will order CT abdomen/pelvis with PO contrast. - Lidoderm patch for abdominal pain. - Dilaudid 0.5 mg IVP Q4hr prn. - GI onsult on board: C/W protonix. C/W Abx Myelodysplasia (myelodysplastic syndrome) - Seen by Dr. Pace - on hypomethylating agent (decitabine) as outpatient - growth factor and transfusion support Right big toe necrosis/leg pain - podiatry, recommendations appreciated - no surgical intervention at this time - Dilaudid 0.5 mg IVP Q4hr prn. - 2 x lidoderm patch each leg for leg pain. HTN - Controlled - Continue home med Prophylactic measures - NO anticoagulant for DVT prophylaxis due to thrombocytopenia - SCDs
[2018-01-16] MEDS: Sodium Bicarbonate 8.4% 50 MEQ in Dextrose 5% In Water 1,000 ML IV SCH (10:50)
[2018-01-16] MEDS: Potassium CL 10 MEQ/50 ML 50 ML IVPB SCH ×2 (11:13→13:04)
--- NOTE | 2018-01-16 11:23 | CP.PCM.PN ---
Subjective - Date & Time of Evaluation Date of Evaluation: 01/16/18 Time of Evaluation: 11:23 - Subjective Subjective: Patient more awake and more talkative and more verbalizing Objective - Vital Signs/Intake and Output Vital Signs (last 24 hours): Temp Pulse Resp BP Pulse Ox 98.2 F 110 H 20 144/68 100 01/16/18 08:00 01/16/18 08:00 01/16/18 08:00 01/16/18 08:00 01/16/18 08:00 Intake and Output: 01/16/18 01/16/18 06:59 18:59 Intake Total 1499 Output Total 1400 Balance 99 - Medications Medications: Current Medications Acetaminophen (Tylenol 325mg Tab) 650 mg PO Q6 PRN PRN Reason: Pain, Mild (1-3) Dextrose (Dextrose 50% Inj) 0 ml IV STAT PRN; Protocol PRN Reason: Hypoglycemia Protocol Dextrose (Glutose 15) 0 gm PO ONCE PRN; Protocol PRN Reason: Hypoglycemia Protocol Glipizide (Glucotrol) 5 mg PO ACBD [facility] Last Admin: 01/16/18 08:37 Dose: 5 mg Glucagon (Glucagen Diagnostic Kit) 0 mg IM STAT PRN; Protocol PRN Reason: Hypoglycemia Protocol Hydromorphone HCl (Dilaudid) 1 mg IVP Q4 PRN PRN Reason: Pain, moderate (4-7) Last Admin: 01/15/18 21:48 Dose: 1 mg Meropenem 500 mg/ Sodium (Chloride) 100 mls @ 100 mls/hr IVPB Q12 [facility] PRN Reason: Protocol Last Admin: 01/16/18 08:28 Dose: 100 mls/hr Pantoprazole Sodium 40 mg/ (Sodium Chloride) 100 mls @ 20 mls/hr IVPB Q5H [facility] PRN Reason: 8 MG/HR Last Admin: 01/16/18 08:27 Dose: 20 mls/hr Sodium Bicarbonate 50 meq/ (Dextrose) 1,050 mls @ 75 mls/hr IV .Q14H [facility] Stop: 01/17/18 07:48 Last Admin: 01/16/18 10:50 Dose: 75 mls/hr Potassium Chloride (Potassium Cl 10meq/50ml Sterile Water) 50 mls @ 50 mls/hr IVPB Q1 [facility] Stop: 01/16/18 12:59 Last Admin: 01/16/18 11:13 Dose: 50 mls/hr Insulin Human Regular (Humulin R) 0 units SC ACHS [place] PRN Reason: Protocol Last Admin: 01/16/18 08:38 Dose: Not Given Lidocaine (Lidoderm) 2 ea TD DAILY [facility] Last Admin: 01/16/18 08:31 Dose: 2 ea Lidocaine (Lidoderm) 1 ea TD DAILY [facility] Last Admin: 01/16/18 08:38 Dose: 1 ea Morphine Sulfate (Morphine Extended Release Tab) 15 mg PO Q12 [facility] Last Admin: 01/16/18 08:35 Dose: 15 mg Nystatin (Nystatin Oral Susp) 5 ml PO QID [facility] Last Admin: 01/16/18 08:39 Dose: 5 ml Ondansetron HCl (Zofran Inj) 4 mg IVP Q6 PRN PRN Reason: Nausea/Vomiting Last Admin: 01/14/18 22:43 Dose: 4 mg - Labs Labs: 01/16/18 04:30 01/16/18 04:30 PT 12.5 Seconds (9.8-13.1) 01/11/18 13:37 INR 1.1 (0.9-1.2) 01/11/18 13:37 APTT 33.6 Seconds (25.6-37.1) 01/11/18 13:37 - Constitutional Appears: No Acute Distress - ENT Exam ENT Exam: Mucous Membranes Moist - Neck Exam Neck Exam: absent: Lymphadenopathy - Respiratory Exam Respiratory Exam: NORMAL BREATHING PATTERN. absent: Chest Wall Tenderness - Extremities Exam Extremities Exam: absent: Calf Tenderness - Back Exam Back Exam: absent: CVA tenderness (L), CVA tenderness (R) - Neurological Exam Neurological Exam: Alert - Psychiatric Exam Psychiatric exam: Agitated - Skin Skin Exam: absent: Cyanosis Assessment and Plan (1) MECHELLE (acute kidney injury) Assessment & Plan: Acute kidney injury continue to improve superimposed on chronic kidney disease stage III perhaps. dehydration improving hypokalemia patient needed potassium supplement Metabolic acidosis improving continue sodium bicarbonate Pancytopenia Foot ulcer Possible sepsis Myeloproliferative disorder with the status post chemotherapy anemia hypernatremia My recommendation apparently patient was not D5 W with sodium bicarbonate and no normal saline therefore serum sodium continued to go up change IV fluid D5 W with amp of sodium bicarbonate at 75 mL/h please discontinue normal saline , sodium has been going up Status: Acute (2) Chronic wound of extremity Status: Acute
--- NOTE | 2018-01-16 11:30 | CP.CCUPN ---
<Jake Brown - Last Filed: 01/16/18 12:24> CCU Subjective - Physician Review Subjective (Free Text): 01/16/18 11:26 ICU Progress Note 77 y/o M evaluated and examined by bedside. Pt complains of generalized body aches, bilateral lower leg are most painful, sacral ulcer is also painful. Pt afebrile and tolerating PO but reports no appetite. Abdominal has improved remarkably but still present. Pt has received blood transfusions as his platelet count decreases below 20K, his WBC still low despite Granix administration. CCU Objective - Vital Signs / Intake & Output Vital Signs (Last 4 hours): Vital Signs Temp Pulse Resp BP Pulse Ox 01/16/18 08:00 98.2 F 110 H 20 144/68 100 Intake and Output (Last 8hrs): Intake & Output 01/15/18 01/16/18 01/16/18 22:59 06:59 14:59 Intake Total 955 924 Output Total 1000 1400 Balance -45 -476 Weight 52.526 kg Intake: IV 450 600 Intake, Piggyback 180 Oral 25 Blood Product 325 299 Red Blood Cells Cpd As1 325 Lr Unit [id number] Output: Urine 1000 1400 Urethral (Henriquez) 1000 1400 Other: # Bowel Movements 1 1 - Physical Exam Head: Positive for: Atraumatic, Normocephalic, Tenderness Pupils: Positive for: PERRL Extroacular Muscles: Positive for: EOMI Conjunctiva: Positive for: Normal Ears: Positive for: Normal Mouth: Positive for: Dry Nose (Internal): Positive for: Normal Inspection Neck: Positive for: Normal Range of Motion. Negative for: Meningeal Signs, Lymphadenopathy Respiratory/Chest: Positive for: Good Air Exchange. Negative for: Respiratory Distress Cardiovascular: Positive for: Regular Rate and Rhythm Abdomen: Negative for: Tenderness, Distention Upper Extremity: Positive for: Normal Inspection Lower Extremity: Negative for: Neurovascularly Intact (Pt has a pressure ulcer on left heel and a chronic ulcer on right 1st toe. ) Neurological: Positive for: GCS=15, Speech Normal Psychiatric: Positive for: Alert, Oriented x 3 - Medications Active Medications: Active Medications Generic Name Dose Route Start Last Admin Trade Name Freq PRN Reason Stop Dose Admin Acetaminophen 650 mg 01/13/18 14:14 Tylenol 325mg Tab PO Q6 PRN Pain, Mild (1-3) Dextrose 0 ml 01/11/18 14:32 Dextrose 50% Inj IV STAT PRN Hypoglycemia Protocol Protocol Dextrose 0 gm 01/11/18 14:32 Glutose 15 PO ONCE PRN Hypoglycemia Protocol Protocol Glipizide 5 mg 01/15/18 16:30 01/16/18 08:37 Glucotrol PO 5 mg ACBD CAM[place] Administration Glucagon 0 mg 01/11/18 14:32 Glucagen Diagnostic Kit IM STAT PRN Hypoglycemia Protocol Protocol Hydromorphone HCl 1 mg 01/15/18 21:36 01/15/18 21:48 Dilaudid IVP 1 mg Q4 PRN Administration Pain, moderate (4-7) Meropenem 500 mg/ Sodium 100 mls @ 100 mls/hr 01/11/18 17:30 01/16/18 08:28 Chloride IVPB 100 mls/hr Q12 CAM[place] Administration Protocol Pantoprazole Sodium 40 mg/ 100 mls @ 20 mls/hr 01/14/18 00:30 01/16/18 08:27 Sodium Chloride IVPB 20 mls/hr Q5H [place] Administration 8 MG/HR Sodium Bicarbonate 50 meq/ 1,050 mls @ 75 mls/hr 01/16/18 08:00 01/16/18 10: 50 Dextrose IV 01/17/18 07:48 75 mls/hr .Q14H [place] Administration Potassium Chloride 50 mls @ 50 mls/hr 01/16/18 11:00 01/16/18 11:13 Potassium Cl 10meq/50ml Sterile Water IVPB 01/16/18 12:59 50 mls/hr Q1 CAM[place] Administration Insulin Human Regular 0 units 01/14/18 16:30 01/16/18 08:38 Humulin R SC Not Given ACHS [facility] Protocol Lidocaine 2 ea 01/15/18 13:13 01/16/18 08:31 Lidoderm TD 2 ea DAILY [facility] Administration Lidocaine 1 ea 01/15/18 13:15 01/16/18 08:38 Lidoderm TD 1 ea DAILY [facility] Administration Morphine Sulfate 15 mg 01/15/18 09:45 01/16/18 08:35 Morphine Extended Release Tab PO 15 mg Q12 [place] Administration Nystatin 5 ml 01/15/18 17:00 01/16/18 08:39 Nystatin Oral Susp PO 5 ml QID [place] Administration Ondansetron HCl 4 mg 01/12/18 09:52 01/14/18 22:43 Zofran Inj IVP 4 mg Q6 PRN Administration Nausea/Vomiting - Patient Studies Lab Studies: Microbiology Studies 01/12/18 21:06 Gram Stain - Final Sputum Sputum Culture - Final Klebsiella Pneumoniae Ssp Pneu Yeast Species 01/11/18 14:05 Blood Culture - Preliminary Blood NO GROWTH AFTER 4 DAYS 01/11/18 14:44 Blood Culture - Preliminary Blood NO GROWTH AFTER 4 DAYS Lab Studies 01/16/18 01/16/18 01/16/18 Range/Units 05:50 04:30 04:30 WBC 0.2 L* (4.8-10.8) K/uL RBC 2.85 L (4.40-5.90) Mil/uL Hgb 8.5 L (12.0-18.0) g/dL Hct 25.0 L (35.0-51.0) % MCV 87.6 (80.0-94.0) fl MCH 29.8 (27.0-31.0) pg MCHC 34.0 (33.0-37.0) g/dL RDW 16.5 H (11.5-14.5) % Plt Count 27 L* D (130-400) K/uL Sodium 155 H (132-148) mmol/l Potassium 3.3 L (3.6-5.0) MMOL/L Chloride 121 H (98-107) mmol/L Carbon Dioxide 22 (22-30) mmol/L Anion Gap 15 (10-20) BUN 109 H* D (9-20) mg/dl Creatinine 2.4 H (0.8-1.5) mg/dl Est GFR ( Amer) 32 Est GFR (Non-Af Amer) 26 POC Glucose (mg/dL) 121 H (65-110) mg/dL Random Glucose 125 H (75-110) mg/dL Calcium 7.2 L (8.4-10.2) mg/dL Total Bilirubin 1.4 H (0.2-1.3) mg/dl AST 10 L (17-59) U/L ALT 21 (21-72) U/L Alkaline Phosphatase 43 (38-126) U/L Total Protein 5.0 L (6.3-8.2) G/DL Albumin 2.3 L (3.5-5.0) g/dL Globulin 2.7 (2.2-3.9) gm/dL Albumin/Globulin Ratio 0.8 L (1.0-2.1) PTH Intact Whole Molec (14-64) pg/mL Blood Type Antibody Screen Crossmatch BBK History Checked 01/15/18 01/15/18 01/15/18 Range/Units 21:19 16:45 12:19 WBC (4.8-10.8) K/uL RBC (4.40-5.90) Mil/uL Hgb (12.0-18.0) g/dL Hct (35.0-51.0) % MCV (80.0-94.0) fl MCH (27.0-31.0) pg MCHC (33.0-37.0) g/dL RDW (11.5-14.5) % Plt Count (130-400) K/uL Sodium (132-148) mmol/l Potassium (3.6-5.0) MMOL/L Chloride (98-107) mmol/L Carbon Dioxide (22-30) mmol/L Anion Gap (10-20) BUN (9-20) mg/dl Creatinine (0.8-1.5) mg/dl Est GFR ( Amer) Est GFR (Non-Af Amer) POC Glucose (mg/dL) 181 H 212 H 208 H (65-110) mg/dL Random Glucose (75-110) mg/dL Calcium (8.4-10.2) mg/dL Total Bilirubin (0.2-1.3) mg/dl AST (17-59) U/L ALT (21-72) U/L Alkaline Phosphatase (38-126) U/L Total Protein (6.3-8.2) G/DL Albumin (3.5-5.0) g/dL Globulin (2.2-3.9) gm/dL Albumin/Globulin Ratio (1.0-2.1) PTH Intact Whole Molec (14-64) pg/mL Blood Type Antibody Screen Crossmatch BBK History Checked 01/15/18 01/14/18 01/14/18 Range/Units 06:38 21:54 15:58 WBC (4.8-10.8) K/uL RBC (4.40-5.90) Mil/uL Hgb (12.0-18.0) g/dL Hct (35.0-51.0) % MCV (80.0-94.0) fl MCH (27.0-31.0) pg MCHC (33.0-37.0) g/dL RDW (11.5-14.5) % Plt Count (130-400) K/uL Sodium (132-148) mmol/l Potassium (3.6-5.0) MMOL/L Chloride (98-107) mmol/L Carbon Dioxide (22-30) mmol/L Anion Gap (10-20) BUN (9-20) mg/dl Creatinine (0.8-1.5) mg/dl Est GFR ( Amer) Est GFR (Non-Af Amer) POC Glucose (mg/dL) 199 H 202 H 204 H (65-110) mg/dL Random Glucose (75-110) mg/dL Calcium (8.4-10.2) mg/dL Total Bilirubin (0.2-1.3) mg/dl AST (17-59) U/L ALT (21-72) U/L Alkaline Phosphatase (38-126) U/L Total Protein (6.3-8.2) G/DL Albumin (3.5-5.0) g/dL Globulin (2.2-3.9) gm/dL Albumin/Globulin Ratio (1.0-2.1) PTH Intact Whole Molec (14-64) pg/mL Blood Type Antibody Screen Crossmatch BBK History Checked 01/14/18 01/14/18 01/13/18 Range/Units 08:53 06:18 07:45 WBC (4.8-10.8) K/uL RBC (4.40-5.90) Mil/uL Hgb (12.0-18.0) g/dL Hct (35.0-51.0) % MCV (80.0-94.0) fl MCH (27.0-31.0) pg MCHC (33.0-37.0) g/dL RDW (11.5-14.5) % Plt Count (130-400) K/uL Sodium (132-148) mmol/l Potassium (3.6-5.0) MMOL/L Chloride (98-107) mmol/L Carbon Dioxide (22-30) mmol/L Anion Gap (10-20) BUN (9-20) mg/dl Creatinine (0.8-1.5) mg/dl Est GFR ( Amer) Est GFR (Non-Af Amer) POC Glucose (mg/dL) 200 H 189 H (65-110) mg/dL Random Glucose (75-110) mg/dL Calcium (8.4-10.2) mg/dL Total Bilirubin (0.2-1.3) mg/dl AST (17-59) U/L ALT (21-72) U/L Alkaline Phosphatase (38-126) U/L Total Protein (6.3-8.2) G/DL Albumin (3.5-5.0) g/dL Globulin (2.2-3.9) gm/dL Albumin/Globulin Ratio (1.0-2.1) PTH Intact Whole Molec (14-64) pg/mL Blood Type O POSITIVE Antibody Screen Negative Crossmatch See Detail BBK History Checked Patient has bt 01/13/18 Range/Units 04:12 WBC (4.8-10.8) K/uL RBC (4.40-5.90) Mil/uL Hgb (12.0-18.0) g/dL Hct (35.0-51.0) % MCV (80.0-94.0) fl MCH (27.0-31.0) pg MCHC (33.0-37.0) g/dL RDW (11.5-14.5) % Plt Count (130-400) K/uL Sodium (132-148) mmol/l Potassium (3.6-5.0) MMOL/L Chloride (98-107) mmol/L Carbon Dioxide (22-30) mmol/L Anion Gap (10-20) BUN (9-20) mg/dl Creatinine (0.8-1.5) mg/dl Est GFR ( Amer) Est GFR (Non-Af Amer) POC Glucose (mg/dL) (65-110) mg/dL Random Glucose (75-110) mg/dL Calcium (8.4-10.2) mg/dL Total Bilirubin (0.2-1.3) mg/dl AST (17-59) U/L ALT (21-72) U/L Alkaline Phosphatase (38-126) U/L Total Protein (6.3-8.2) G/DL Albumin (3.5-5.0) g/dL Globulin (2.2-3.9) gm/dL Albumin/Globulin Ratio (1.0-2.1) PTH Intact Whole Molec 291 H (14-64) pg/mL Blood Type Antibody Screen Crossmatch BBK History Checked Laboratory Results - last 24 hr 01/13/18 01/13/18 01/14/18 04:12 07:45 06:18 WBC RBC Hgb Hct MCV MCH MCHC RDW Plt Count Sodium Potassium Chloride Carbon Dioxide Anion Gap BUN Creatinine Est GFR ( Amer) Est GFR (Non-Af Amer) POC Glucose (mg/dL) 189 H Random Glucose Calcium Total Bilirubin AST ALT Alkaline Phosphatase Total Protein Albumin Globulin Albumin/Globulin Ratio PTH Intact Whole Molec 291 H Blood Type O POSITIVE Antibody Screen Negative Crossmatch See Detail BBK History Checked Patient has bt 01/14/18 01/14/18 01/14/18 08:53 15:58 21:54 WBC RBC Hgb Hct MCV MCH MCHC RDW Plt Count Sodium Potassium Chloride Carbon Dioxide Anion Gap BUN Creatinine Est GFR ( Amer) Est GFR (Non-Af Amer) POC Glucose (mg/dL) 200 H 204 H 202 H Random Glucose Calcium Total Bilirubin AST ALT Alkaline Phosphatase Total Protein Albumin Globulin Albumin/Globulin Ratio PTH Intact Whole Molec Blood Type Antibody Screen Crossmatch BBK History Checked 01/15/18 01/15/18 01/15/18 06:38 12:19 16:45 WBC RBC Hgb Hct MCV MCH MCHC RDW Plt Count Sodium Potassium Chloride Carbon Dioxide Anion Gap BUN Creatinine Est GFR ( Amer) Est GFR (Non-Af Amer) POC Glucose (mg/dL) 199 H 208 H 212 H Random Glucose Calcium Total Bilirubin AST ALT Alkaline Phosphatase Total Protein Albumin Globulin Albumin/Globulin Ratio PTH Intact Whole Molec Blood Type Antibody Screen Crossmatch BBK History Checked 01/15/18 01/16/18 01/16/18 21:19 04:30 04:30 WBC 0.2 L* RBC 2.85 L Hgb 8.5 L Hct 25.0 L MCV 87.6 MCH 29.8 MCHC 34.0 RDW 16.5 H Plt Count 27 L* D Sodium 155 H Potassium 3.3 L Chloride 121 H Carbon Dioxide 22 Anion Gap 15 BUN 109 H* D Creatinine 2.4 H Est GFR ( Amer) 32 Est GFR (Non-Af Amer) 26 POC Glucose (mg/dL) 181 H Random Glucose 125 H Calcium 7.2 L Total Bilirubin 1.4 H AST 10 L ALT 21 Alkaline Phosphatase 43 Total Protein 5.0 L Albumin 2.3 L Globulin 2.7 Albumin/Globulin Ratio 0.8 L PTH Intact Whole Molec Blood Type Antibody Screen Crossmatch BBK History Checked 01/16/18 05:50 WBC RBC Hgb Hct MCV MCH MCHC RDW Plt Count Sodium Potassium Chloride Carbon Dioxide Anion Gap BUN Creatinine Est GFR ( Amer) Est GFR (Non-Af Amer) POC Glucose (mg/dL) 121 H Random Glucose Calcium Total Bilirubin AST ALT Alkaline Phosphatase Total Protein Albumin Globulin Albumin/Globulin Ratio PTH Intact Whole Molec Blood Type Antibody Screen Crossmatch BBK History Checked Fingerstick Blood Sugar Results: 121 Critical Care Progress Note - Nutrition Nutrition: Nutrition Category Date Time Status Consistent Carbohydrate [DIET] Diets 01/13/18 Breakfast Active Assessment/Plan - Assessment and Plan (Free Text) Assessment: 77 y/o M with a PMHx of DM 2, R first toe osteomylitis, MDS w/ secondary pancytopenia admitted for management of DKA as pt has been persistently vomiting for 3 days after initiating daily MDS therapy 4 days ago. Pt has been deteriorating with acute renal injury and ?GI bleeding. >DM 2 / Diabetic Keto-Acidosis -Insulin SC ACHS, Glipizide PO -IV D5W8.4%NaHCO3 at 75mL/hr -Monitor BMP -Hypoglycemia protocol -Endocrinology consult, Dr Whitney. >GI Bleeding -Repeat CT scan: Mac colitis, possible cirrhosis and b/l lower pneumonia. -GI on board, Dr Bowens. >Acute Kidney Injury -Persistent elevated BUN/Creat, but trending down -Possibly due to dehydration/acute on CKD -Nephrology consult, Dr Norman Butler and Dr Phoenix >Hypokalemia -KCl 10mEq x2. -Monitor BMP >Emesis, abdominal pain -Repeat CT scan: Mac colitis, possible cirrhosis and b/l lower pneumonia. -ID on consult, Dr Bright -Meropenem was initiated as per ID. >Pancytopenia -Secondary to MDS. -On Iron supplement -Granix daily -Hematology on board, Dr Pace >Myelodysplastic Syndrome -Hematology on consult, Katelynn. 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 -Podiatry on consult: X ray -Vascular Surgery Consult. >DVT prophylaxis -SCD's - Date & Time Date: 01/16/18 Time: 10:05 <Rafael Hill V - Last Filed: 01/16/18 13:37> CCU Subjective - Physician Review Events Since Last Encounter (Free Text): 01/16/18 13:36 patient is seen, examined at bedside. case discussed in am rounds, with GI and [facility] consultants. Agree with plan of care as detailed in resident's note CCU Objective - Vital Signs / Intake & Output Vital Signs (Last 4 hours): Vital Signs Pulse Resp BP Pulse Ox 01/16/18 12:00 110 H 20 167/92 H 100 01/16/18 10:00 118 H 28 H 157/69 H 100 Intake and Output (Last 8hrs): Intake & Output 01/15/18 01/16/18 01/16/18 22:59 06:59 14:59 Intake Total 955 924 Output Total 1000 1400 Balance -45 -476 Weight 115 lb 12.8 oz Intake: IV 450 600 Intake, Piggyback 180 Oral 25 Blood Product 325 299 Red Blood Cells Cpd As1 325 Lr Unit [id number] Output: Urine 1000 1400 Urethral (Henriquez) 1000 1400 Other: # Bowel Movements 1 1 - Medications Active Medications: Active Medications Generic Name Dose Route Start Last Admin Trade Name Freq PRN Reason Stop Dose Admin Acetaminophen 650 mg 01/13/18 14:14 Tylenol 325mg Tab PO Q6 PRN Pain, Mild (1-3) Dextrose 0 ml 01/11/18 14:32 Dextrose 50% Inj IV STAT PRN Hypoglycemia Protocol Protocol Dextrose 0 gm 01/11/18 14:32 Glutose 15 PO ONCE PRN Hypoglycemia Protocol Protocol Glipizide 5 mg 01/15/18 16:30 01/16/18 08:37 Glucotrol PO 5 mg ACBD [place] Administration Glucagon 0 mg 01/11/18 14:32 Glucagen Diagnostic Kit IM STAT PRN Hypoglycemia Protocol Protocol Hydromorphone HCl 0.5 mg 01/16/18 11:25 Dilaudid IVP Q4 PRN Pain, moderate (4-7) Meropenem 500 mg/ Sodium 100 mls @ 100 mls/hr 01/11/18 17:30 01/16/18 08:28 Chloride IVPB 100 mls/hr Q12 [place] Administration Protocol Pantoprazole Sodium 40 mg/ 100 mls @ 20 mls/hr 01/14/18 00:30 01/16/18 08:27 Sodium Chloride IVPB 20 mls/hr Q5H [place] Administration 8 MG/HR Sodium Bicarbonate 50 meq/ 1,050 mls @ 75 mls/hr 01/16/18 08:00 01/16/18 10: 50 Dextrose IV 01/17/18 07:48 75 mls/hr .Q14H [place] Administration Insulin Human Regular 0 units 01/14/18 16:30 01/16/18 12:59 Humulin R SC Not Given ACHS [place] Protocol Lidocaine 2 ea 01/15/18 13:13 01/16/18 08:31 Lidoderm TD 2 ea DAILY [place] Administration Lidocaine 1 ea 01/15/18 13:15 01/16/18 08:38 Lidoderm TD 1 ea DAILY [place] Administration Lorazepam 0.5 mg 01/16/18 12:58 Ativan IVP Q6 PRN Agitation Morphine Sulfate 15 mg 01/15/18 09:45 01/16/18 08:35 Morphine Extended Release Tab PO 15 mg Q12 [place] Administration Nystatin 5 ml 01/15/18 17:00 01/16/18 13:05 Nystatin Oral Susp PO 5 ml QID [place] Administration Ondansetron HCl 4 mg 01/12/18 09:52 01/14/18 22:43 Zofran Inj IVP 4 mg Q6 PRN Administration Nausea/Vomiting - Patient Studies Lab Studies: Microbiology Studies 01/12/18 21:06 Gram Stain - Final Sputum Sputum Culture - Final Klebsiella Pneumoniae Ssp Pneu Yeast Species 01/11/18 14:05 Blood Culture - Preliminary Blood NO GROWTH AFTER 4 DAYS 01/11/18 14:44 Blood Culture - Preliminary Blood NO GROWTH AFTER 4 DAYS Lab Studies 01/16/18 01/16/18 01/16/18 Range/Units 12:29 05:50 04:30 WBC (4.8-10.8) K/uL RBC (4.40-5.90) Mil/uL Hgb (12.0-18.0) g/dL Hct (35.0-51.0) % MCV (80.0-94.0) fl MCH (27.0-31.0) pg MCHC (33.0-37.0) g/dL RDW (11.5-14.5) % Plt Count (130-400) K/uL Sodium 155 H (132-148) mmol/l Potassium 3.3 L (3.6-5.0) MMOL/L Chloride 121 H (98-107) mmol/L Carbon Dioxide 22 (22-30) mmol/L Anion Gap 15 (10-20) BUN 109 H* D (9-20) mg/dl Creatinine 2.4 H (0.8-1.5) mg/dl Est GFR ( Amer) 32 Est GFR (Non-Af Amer) 26 POC Glucose (mg/dL) 157 H 121 H (65-110) mg/dL Random Glucose 125 H (75-110) mg/dL Calcium 7.2 L (8.4-10.2) mg/dL Total Bilirubin 1.4 H (0.2-1.3) mg/dl AST 10 L (17-59) U/L ALT 21 (21-72) U/L Alkaline Phosphatase 43 (38-126) U/L Total Protein 5.0 L (6.3-8.2) G/DL Albumin 2.3 L (3.5-5.0) g/dL Globulin 2.7 (2.2-3.9) gm/dL Albumin/Globulin Ratio 0.8 L (1.0-2.1) PTH Intact Whole Molec (14-64) pg/mL Blood Type Antibody Screen Crossmatch BBK History Checked 01/16/18 01/15/18 01/15/18 Range/Units 04:30 21:19 16:45 WBC 0.2 L* (4.8-10.8) K/uL RBC 2.85 L (4.40-5.90) Mil/uL Hgb 8.5 L (12.0-18.0) g/dL Hct 25.0 L (35.0-51.0) % MCV 87.6 (80.0-94.0) fl MCH 29.8 (27.0-31.0) pg MCHC 34.0 (33.0-37.0) g/dL RDW 16.5 H (11.5-14.5) % Plt Count 27 L* D (130-400) K/uL Sodium (132-148) mmol/l Potassium (3.6-5.0) MMOL/L Chloride (98-107) mmol/L Carbon Dioxide (22-30) mmol/L Anion Gap (10-20) BUN (9-20) mg/dl Creatinine (0.8-1.5) mg/dl Est GFR ( Amer) Est GFR (Non-Af Amer) POC Glucose (mg/dL) 181 H 212 H (65-110) mg/dL Random Glucose (75-110) mg/dL Calcium (8.4-10.2) mg/dL Total Bilirubin (0.2-1.3) mg/dl AST (17-59) U/L ALT (21-72) U/L Alkaline Phosphatase (38-126) U/L Total Protein (6.3-8.2) G/DL Albumin (3.5-5.0) g/dL Globulin (2.2-3.9) gm/dL Albumin/Globulin Ratio (1.0-2.1) PTH Intact Whole Molec (14-64) pg/mL Blood Type Antibody Screen Crossmatch BBK History Checked 01/13/18 01/13/18 Range/Units 07:45 04:12 WBC (4.8-10.8) K/uL RBC (4.40-5.90) Mil/uL Hgb (12.0-18.0) g/dL Hct (35.0-51.0) % MCV (80.0-94.0) fl MCH (27.0-31.0) pg MCHC (33.0-37.0) g/dL RDW (11.5-14.5) % Plt Count (130-400) K/uL Sodium (132-148) mmol/l Potassium (3.6-5.0) MMOL/L Chloride (98-107) mmol/L Carbon Dioxide (22-30) mmol/L Anion Gap (10-20) BUN (9-20) mg/dl Creatinine (0.8-1.5) mg/dl Est GFR ( Amer) Est GFR (Non-Af Amer) POC Glucose (mg/dL) (65-110) mg/dL Random Glucose (75-110) mg/dL Calcium (8.4-10.2) mg/dL Total Bilirubin (0.2-1.3) mg/dl AST (17-59) U/L ALT (21-72) U/L Alkaline Phosphatase (38-126) U/L Total Protein (6.3-8.2) G/DL Albumin (3.5-5.0) g/dL Globulin (2.2-3.9) gm/dL Albumin/Globulin Ratio (1.0-2.1) PTH Intact Whole Molec 291 H (14-64) pg/mL Blood Type O POSITIVE Antibody Screen Negative Crossmatch See Detail BBK History Checked Patient has bt Laboratory Results - last 24 hr 01/13/18 01/13/18 01/15/18 04:12 07:45 16:45 WBC RBC Hgb Hct MCV MCH MCHC RDW Plt Count Sodium Potassium Chloride Carbon Dioxide Anion Gap BUN Creatinine Est GFR ( Amer) Est GFR (Non-Af Amer) POC Glucose (mg/dL) 212 H Random Glucose Calcium Total Bilirubin AST ALT Alkaline Phosphatase Total Protein Albumin Globulin Albumin/Globulin Ratio PTH Intact Whole Molec 291 H Blood Type O POSITIVE Antibody Screen Negative Crossmatch See Detail BBK History Checked Patient has bt 01/15/18 01/16/18 01/16/18 21:19 04:30 04:30 WBC 0.2 L* RBC 2.85 L Hgb 8.5 L Hct 25.0 L MCV 87.6 MCH 29.8 MCHC 34.0 RDW 16.5 H Plt Count 27 L* D Sodium 155 H Potassium 3.3 L Chloride 121 H Carbon Dioxide 22 Anion Gap 15 BUN 109 H* D Creatinine 2.4 H Est GFR ( Amer) 32 Est GFR (Non-Af Amer) 26 POC Glucose (mg/dL) 181 H Random Glucose 125 H Calcium 7.2 L Total Bilirubin 1.4 H AST 10 L ALT 21 Alkaline Phosphatase 43 Total Protein 5.0 L Albumin 2.3 L Globulin 2.7 Albumin/Globulin Ratio 0.8 L PTH Intact Whole Molec Blood Type Antibody Screen Crossmatch BBK History Checked 01/16/18 01/16/18 05:50 12:29 WBC RBC Hgb Hct MCV MCH MCHC RDW Plt Count Sodium Potassium Chloride Carbon Dioxide Anion Gap BUN Creatinine Est GFR ( Amer) Est GFR (Non-Af Amer) POC Glucose (mg/dL) 121 H 157 H Random Glucose Calcium Total Bilirubin AST ALT Alkaline Phosphatase Total Protein Albumin Globulin Albumin/Globulin Ratio PTH Intact Whole Molec Blood Type Antibody Screen Crossmatch BBK History Checked Critical Care Progress Note - Nutrition Nutrition: Nutrition Category Date Time Status Consistent Carbohydrate [DIET] Diets 01/13/18 Breakfast Active
--- NOTE | 2018-01-16 14:42 | RAD ---
Date of service: 01/16/2018 HISTORY: SOB COMPARISON: Portable chest 01/13/2018. FINDINGS: LUNGS: No active pulmonary disease. Skin fold noted at the right hemithorax laterally. PLEURA: No significant pleural effusion identified, no pneumothorax apparent. CARDIOVASCULAR: Normal. OSSEOUS STRUCTURES: No significant abnormalities. VISUALIZED UPPER ABDOMEN: Normal. OTHER FINDINGS: None. IMPRESSION: No interval acute cardiopulmonary disease appreciated.
[2018-01-16 18:01] LABS: CALCIUM 7.2 mg/dL (8.4-10.2)
--- NOTE | 2018-01-16 18:57 | CP.PCM.PN ---
Subjective - Date & Time of Evaluation Date of Evaluation: 01/15/18 Time of Evaluation: 21:00 - Subjective Subjective: Feels tired. Objective - Vital Signs/Intake and Output Vital Signs (last 24 hours): Temp Pulse Resp BP Pulse Ox 98.8 F 111 H 18 170/86 H 94 L 01/16/18 16:36 01/16/18 16:36 01/16/18 14:00 01/16/18 16:36 01/16/18 16:36 Intake and Output: 01/16/18 01/16/18 06:59 18:59 Intake Total 1499 1245 Output Total 1400 1000 Balance 99 245 - Medications Medications: Current Medications Acetaminophen (Tylenol 325mg Tab) 650 mg PO Q6 PRN PRN Reason: Pain, Mild (1-3) Dextrose (Dextrose 50% Inj) 0 ml IV STAT PRN; Protocol PRN Reason: Hypoglycemia Protocol Dextrose (Glutose 15) 0 gm PO ONCE PRN; Protocol PRN Reason: Hypoglycemia Protocol Glipizide (Glucotrol) 5 mg PO ACBD [facility] Last Admin: 01/16/18 17:00 Dose: 5 mg Glucagon (Glucagen Diagnostic Kit) 0 mg IM STAT PRN; Protocol PRN Reason: Hypoglycemia Protocol Hydromorphone HCl (Dilaudid) 0.5 mg IVP Q4 PRN PRN Reason: Pain, moderate (4-7) Meropenem 500 mg/ Sodium (Chloride) 100 mls @ 100 mls/hr IVPB Q12 [place] PRN Reason: Protocol Last Admin: 01/16/18 08:28 Dose: 100 mls/hr Pantoprazole Sodium 40 mg/ (Sodium Chloride) 100 mls @ 20 mls/hr IVPB Q5H [place] PRN Reason: 8 MG/HR Last Admin: 01/16/18 17:00 Dose: Not Given Sodium Bicarbonate 50 meq/ (Dextrose) 1,050 mls @ 75 mls/hr IV .Q14H [facility] Stop: 01/17/18 07:48 Last Admin: 01/16/18 10:50 Dose: 75 mls/hr Insulin Human Regular (Humulin R) 0 units SC ACHS [place] PRN Reason: Protocol Last Admin: 01/16/18 17:04 Dose: Not Given Lidocaine (Lidoderm) 2 ea TD DAILY [facility] Last Admin: 01/16/18 08:31 Dose: 2 ea Lidocaine (Lidoderm) 1 ea TD DAILY [facility] Last Admin: 01/16/18 08:38 Dose: 1 ea Lorazepam (Ativan) 0.5 mg IVP Q6 PRN PRN Reason: Agitation Morphine Sulfate (Morphine Extended Release Tab) 15 mg PO Q12 [facility] Last Admin: 01/16/18 08:35 Dose: 15 mg Nystatin (Nystatin Oral Susp) 5 ml PO QID [facility] Last Admin: 01/16/18 17:00 Dose: 5 ml Ondansetron HCl (Zofran Inj) 4 mg IVP Q6 PRN PRN Reason: Nausea/Vomiting Last Admin: 01/14/18 22:43 Dose: 4 mg - Labs Labs: 01/16/18 04:30 01/16/18 17:02 PT 12.5 Seconds (9.8-13.1) 01/11/18 13:37 INR 1.1 (0.9-1.2) 01/11/18 13:37 APTT 33.6 Seconds (25.6-37.1) 01/11/18 13:37 - Head Exam Head Exam: ATRAUMATIC - Eye Exam Eye Exam: Normal appearance - ENT Exam ENT Exam: Mucous Membranes Dry - Respiratory Exam Respiratory Exam: NORMAL BREATHING PATTERN - Cardiovascular Exam Cardiovascular Exam: +S1, +S2 - GI/Abdominal Exam GI & Abdominal Exam: Normal Bowel Sounds Assessment and Plan (1) Pancytopenia Assessment & Plan: secondary to MDS on growth factor and transfusion support Status: Acute (2) Myelodysplasia (myelodysplastic syndrome) Assessment & Plan: growth factor and transfusion support s/p partial decitabine treatment Status: Chronic
--- NOTE | 2018-01-16 18:58 | CP.PCM.PN ---
Subjective - Date & Time of Evaluation Date of Evaluation: 01/16/18 Time of Evaluation: 11:00 - Subjective Subjective: Feels weak, family a bedside. Objective - Vital Signs/Intake and Output Vital Signs (last 24 hours): Temp Pulse Resp BP Pulse Ox 98.8 F 111 H 18 170/86 H 94 L 01/16/18 16:36 01/16/18 16:36 01/16/18 14:00 01/16/18 16:36 01/16/18 16:36 Intake and Output: 01/16/18 01/16/18 06:59 18:59 Intake Total 1499 1245 Output Total 1400 1000 Balance 99 245 - Medications Medications: Current Medications Acetaminophen (Tylenol 325mg Tab) 650 mg PO Q6 PRN PRN Reason: Pain, Mild (1-3) Dextrose (Dextrose 50% Inj) 0 ml IV STAT PRN; Protocol PRN Reason: Hypoglycemia Protocol Dextrose (Glutose 15) 0 gm PO ONCE PRN; Protocol PRN Reason: Hypoglycemia Protocol Glipizide (Glucotrol) 5 mg PO ACBD [facility] Last Admin: 01/16/18 17:00 Dose: 5 mg Glucagon (Glucagen Diagnostic Kit) 0 mg IM STAT PRN; Protocol PRN Reason: Hypoglycemia Protocol Hydromorphone HCl (Dilaudid) 0.5 mg IVP Q4 PRN PRN Reason: Pain, moderate (4-7) Meropenem 500 mg/ Sodium (Chloride) 100 mls @ 100 mls/hr IVPB Q12 [place] PRN Reason: Protocol Last Admin: 01/16/18 08:28 Dose: 100 mls/hr Pantoprazole Sodium 40 mg/ (Sodium Chloride) 100 mls @ 20 mls/hr IVPB Q5H [place] PRN Reason: 8 MG/HR Last Admin: 01/16/18 17:00 Dose: Not Given Sodium Bicarbonate 50 meq/ (Dextrose) 1,050 mls @ 75 mls/hr IV .Q14H [facility] Stop: 01/17/18 07:48 Last Admin: 01/16/18 10:50 Dose: 75 mls/hr Insulin Human Regular (Humulin R) 0 units SC ACHS [place] PRN Reason: Protocol Last Admin: 01/16/18 17:04 Dose: Not Given Lidocaine (Lidoderm) 2 ea TD DAILY [facility] Last Admin: 01/16/18 08:31 Dose: 2 ea Lidocaine (Lidoderm) 1 ea TD DAILY [facility] Last Admin: 01/16/18 08:38 Dose: 1 ea Lorazepam (Ativan) 0.5 mg IVP Q6 PRN PRN Reason: Agitation Morphine Sulfate (Morphine Extended Release Tab) 15 mg PO Q12 [facility] Last Admin: 01/16/18 08:35 Dose: 15 mg Nystatin (Nystatin Oral Susp) 5 ml PO QID [facility] Last Admin: 01/16/18 17:00 Dose: 5 ml Ondansetron HCl (Zofran Inj) 4 mg IVP Q6 PRN PRN Reason: Nausea/Vomiting Last Admin: 01/14/18 22:43 Dose: 4 mg - Labs Labs: 01/16/18 04:30 01/16/18 17:02 PT 12.5 Seconds (9.8-13.1) 01/11/18 13:37 INR 1.1 (0.9-1.2) 01/11/18 13:37 APTT 33.6 Seconds (25.6-37.1) 01/11/18 13:37 - Head Exam Head Exam: ATRAUMATIC - Eye Exam Eye Exam: Normal appearance - ENT Exam ENT Exam: Mucous Membranes Dry - Respiratory Exam Respiratory Exam: NORMAL BREATHING PATTERN - Cardiovascular Exam Cardiovascular Exam: +S1, +S2 - GI/Abdominal Exam GI & Abdominal Exam: Normal Bowel Sounds Assessment and Plan (1) Pancytopenia Assessment & Plan: secondary to MDS growth factor, transfusion support Status: Acute (2) Myelodysplasia (myelodysplastic syndrome) Assessment & Plan: growth factor and transfusion support outpatient decitabine Status: Chronic
--- NOTE | 2018-01-16 20:21 | PN ---
DATE: 01/16/2018 ENDO FOLLOWUP NOTE LOCATION: In room 424. SUBJECTIVE: This is a 77-year-old male with recent admission with marked metabolic acidosis and acute renal failure superimposed on chronic kidney disease and has received vigorous IV hydration with sodium bicarbonate infusion and is clinically and metabolically improving as noted thereof. His glycemic levels are also much improved at this time, although still fluctuating and the glucose levels have ranged from 121 to 157 and 181 mg/dL. LABORATORY DATA: His latest chemistries showed a BUN of 109, sodium 155, potassium 3.3, chloride 121, CO2 is 22, glucose 125, and creatinine 2.4. The latest calcium level is 7.2, albumin level 2.3, and corrected calcium of 8.9 mg/dL. ASSESSMENT AND PLAN: So at this time, we will continue the sodium bicarbonate now to be infused in D5W because of worsening hypernatremia at this time. We will also continue the glipizide given as 5 mg b.i.d. before meals as ordered. There was concern whether we are dealing with adrenal insufficiency, but clearly this is not the case, not only clinically, but also metabolically with persistent hypokalemia and hypernatremia at this time, if his acute renal failure superimposed on chronic kidney disease with improving metabolic acidosis is noted. We will obtain serial chemistries and supplement accordingly as needed. We will follow. Umu Whitney MD
--- NOTE | 2018-01-16 21:32 | CP.PCM.PN ---
Subjective - Date & Time of Evaluation Date of Evaluation: 01/16/18 Time of Evaluation: 21:30 - Subjective Subjective: Less abdominal pain and no overt bleedin. Objective - Vital Signs/Intake and Output Vital Signs (last 24 hours): Temp Pulse Resp BP Pulse Ox 99 F 114 H 18 161/68 H 99 01/16/18 20:00 01/16/18 20:00 01/16/18 20:00 01/16/18 20:00 01/16/18 20:00 Intake and Output: 01/16/18 01/17/18 18:59 06:59 Intake Total 1245 190 Output Total 1000 Balance 245 190 - Medications Medications: Current Medications Acetaminophen (Tylenol 325mg Tab) 650 mg PO Q6 PRN PRN Reason: Pain, Mild (1-3) Dextrose (Dextrose 50% Inj) 0 ml IV STAT PRN; Protocol PRN Reason: Hypoglycemia Protocol Dextrose (Glutose 15) 0 gm PO ONCE PRN; Protocol PRN Reason: Hypoglycemia Protocol Glipizide (Glucotrol) 5 mg PO ACBD [facility] Last Admin: 01/16/18 17:00 Dose: 5 mg Glucagon (Glucagen Diagnostic Kit) 0 mg IM STAT PRN; Protocol PRN Reason: Hypoglycemia Protocol Hydromorphone HCl (Dilaudid) 0.5 mg IVP Q4 PRN PRN Reason: Pain, moderate (4-7) Meropenem 500 mg/ Sodium (Chloride) 100 mls @ 100 mls/hr IVPB Q12 [place] PRN Reason: Protocol Last Admin: 01/16/18 20:20 Dose: 100 mls/hr Pantoprazole Sodium 40 mg/ (Sodium Chloride) 100 mls @ 20 mls/hr IVPB Q5H [place] PRN Reason: 8 MG/HR Last Admin: 01/16/18 20:19 Dose: 20 mls/hr Sodium Bicarbonate 50 meq/ (Dextrose) 1,050 mls @ 75 mls/hr IV .Q14H [facility] Stop: 01/17/18 07:48 Last Admin: 01/16/18 10:50 Dose: 75 mls/hr Insulin Human Regular (Humulin R) 0 units SC ACHS [place] PRN Reason: Protocol Last Admin: 01/16/18 21:08 Dose: Not Given Lidocaine (Lidoderm) 2 ea TD DAILY [facility] Last Admin: 01/16/18 08:31 Dose: 2 ea Lidocaine (Lidoderm) 1 ea TD DAILY [facility] Last Admin: 01/16/18 08:38 Dose: 1 ea Lorazepam (Ativan) 0.5 mg IVP Q6 PRN PRN Reason: Agitation Morphine Sulfate (Morphine Extended Release Tab) 15 mg PO Q12 [facility] Last Admin: 01/16/18 21:07 Dose: 15 mg Nystatin (Nystatin Oral Susp) 5 ml PO QID [facility] Last Admin: 01/16/18 21:10 Dose: 5 ml Ondansetron HCl (Zofran Inj) 4 mg IVP Q6 PRN PRN Reason: Nausea/Vomiting Last Admin: 01/14/18 22:43 Dose: 4 mg - Labs Labs: 01/16/18 04:30 01/16/18 17:02 PT 12.5 Seconds (9.8-13.1) 01/11/18 13:37 INR 1.1 (0.9-1.2) 01/11/18 13:37 APTT 33.6 Seconds (25.6-37.1) 01/11/18 13:37 - Head Exam Head Exam: ATRAUMATIC - Eye Exam Eye Exam: Normal appearance Pupil Exam: NORMAL ACCOMODATION - ENT Exam ENT Exam: Normal Exam - Neck Exam Neck Exam: Normal Inspection - Respiratory Exam Respiratory Exam: Clear to Ausculation Bilateral - Cardiovascular Exam Cardiovascular Exam: REGULAR RHYTHM, +S1, +S2 - GI/Abdominal Exam GI & Abdominal Exam: Soft. absent: Tenderness Assessment and Plan (1) Melena Assessment & Plan: No active bleeding presently. Patelet lcount is better. Status: Acute (2) Colitis Assessment & Plan: IV abx initiated by ID and patient has less abdominal pain Status: Acute
[2018-01-17] MEDS: Pantoprazole 40 MG in Sodium Chloride 0.9% 100 ML IVPB SCH ×5 (01:34→21:06)
[2018-01-17] MEDS: Sodium Bicarbonate 8.4% 50 MEQ in Dextrose 5% In Water 1,000 ML IV SCH (01:36)
[2018-01-17] MEDS: HYDROmorphone 0.5 mg/0.5 ml ISec IVP PRN ×2 (05:01→17:20)
[2018-01-17] MEDS: Insulin Regular 100 units/ml SC SCH ×4 (06:29→21:49)
[2018-01-17 07:03] LABS: CALCIUM 7.2 mg/dL (8.4-10.2)
[2018-01-17 07:30] LABS: MEAN CELL VOLUME 88.1 fl (80.0-94.0); MEAN CORPUSCULAR HEMOGLOBIN 30.3 pg (27.0-31.0); MEAN CORPUSCULAR HGB CONC 34.4 g/dL (33.0-37.0); RBC 2.64 Mil/uL (4.40-5.90); RED CELL DISTRIBUTION WIDTH 16.8 % (11.5-14.5)
[2018-01-17 07:38] LABS: WHITE BLOOD COUNT 0.2 K/uL (4.8-10.8)
[2018-01-17] MEDS: Lidocaine 5% Patch TD SCH ×2 (08:22→08:24)
[2018-01-17] MEDS: Meropenem 500 MG in Sodium Chloride 0.9% 100 ML IVPB SCH ×2 (08:24→20:23)
[2018-01-17] MEDS: Nystatin 100,000 Units/ml Oral Susp 5 ml UD PO SCH ×4 (08:25→21:08)
[2018-01-17] MEDS: Morphine 15 mg SR Tab PO SCH ×2 (08:26→16:15)
--- NOTE | 2018-01-17 08:48 | CP.PCM.PN ---
Subjective - Date & Time of Evaluation Date of Evaluation: 01/17/18 Time of Evaluation: 08:45 - Subjective Subjective: Podiatry Progress Note for attending Dr. Ledezma 77 y/o M patient seen and examined in the bedside in ICU for right hallux gangrene and left heel deep tissue injury. Patient is still feeling weak, He is in pain. Patient complains of pain in right great toe and left heel. Pain in the right great toe > left heel pain. Patient and his nurse denies any acute events overnight.Dressings to bilateral LE clean/dry/intact. Multipodus boots present bilaterally. Patient and his nurse denies N/V/D/F/C. Objective - Vital Signs/Intake and Output Vital Signs (last 24 hours): Temp Pulse Resp BP Pulse Ox 98.5 F 126 H 24 128/67 100 01/17/18 08:00 01/17/18 08:00 01/17/18 08:00 01/17/18 08:00 01/17/18 08:00 Intake and Output: 01/17/18 01/17/18 06:59 18:59 Intake Total 1140 Output Total 700 Balance 440 - Medications Medications: Current Medications Acetaminophen (Tylenol 325mg Tab) 650 mg PO Q6 PRN PRN Reason: Pain, Mild (1-3) Dextrose (Dextrose 50% Inj) 0 ml IV STAT PRN; Protocol PRN Reason: Hypoglycemia Protocol Dextrose (Glutose 15) 0 gm PO ONCE PRN; Protocol PRN Reason: Hypoglycemia Protocol Glipizide (Glucotrol) 5 mg PO ACBD [facility] Last Admin: 01/17/18 08:22 Dose: 5 mg Glucagon (Glucagen Diagnostic Kit) 0 mg IM STAT PRN; Protocol PRN Reason: Hypoglycemia Protocol Hydromorphone HCl (Dilaudid) 0.5 mg IVP Q4 PRN PRN Reason: Pain, moderate (4-7) Last Admin: 01/17/18 05:01 Dose: 0.5 mg Meropenem 500 mg/ Sodium (Chloride) 100 mls @ 100 mls/hr IVPB Q12 [place] PRN Reason: Protocol Last Admin: 01/17/18 08:24 Dose: 100 mls/hr Pantoprazole Sodium 40 mg/ (Sodium Chloride) 100 mls @ 20 mls/hr IVPB Q5H [place] PRN Reason: 8 MG/HR Last Admin: 01/17/18 08:26 Dose: 20 mls/hr Insulin Human Regular (Humulin R) 0 units SC ACHS [place] PRN Reason: Protocol Last Admin: 01/17/18 06:29 Dose: Not Given Lidocaine (Lidoderm) 2 ea TD DAILY [facility] Last Admin: 01/17/18 08:22 Dose: 2 ea Lidocaine (Lidoderm) 1 ea TD DAILY [facility] Last Admin: 01/17/18 08:24 Dose: 1 ea Lorazepam (Ativan) 0.5 mg IVP Q6 PRN PRN Reason: Agitation Morphine Sulfate (Morphine Extended Release Tab) 15 mg PO Q12 [facility] Last Admin: 01/17/18 08:26 Dose: 15 mg Nystatin (Nystatin Oral Susp) 5 ml PO QID [facility] Last Admin: 01/17/18 08:25 Dose: 5 ml Ondansetron HCl (Zofran Inj) 4 mg IVP Q6 PRN PRN Reason: Nausea/Vomiting Last Admin: 01/14/18 22:43 Dose: 4 mg - Labs Labs: 01/17/18 04:18 01/17/18 04:18 PT 12.5 Seconds (9.8-13.1) 01/11/18 13:37 INR 1.1 (0.9-1.2) 01/11/18 13:37 APTT 33.6 Seconds (25.6-37.1) 01/11/18 13:37 - Constitutional Appears: Non-toxic - Head Exam Head Exam: ATRAUMATIC, NORMOCEPHALIC - Extremities Exam Additional comments: LE focused exam: Vasc: DP/PT pulses non-palpable b/l. Temperature gradient warm tocool proximal to distal, cool to cold to the digits b/l. CFT delayed in all digits. No edema noted b/l. Neuro: Gross sensation diminished bilaterally. Derm: Dry eschar noted to distal aspect of right hallux measuring approximately 2 x 1 cm; no drainage; no malodor; no purulence; no fluctuance; minimal erythema noted periwound. Non-blanchable erythema with pinpoint areas of ecchymosis noted to left heel. Ortho: Severe pain on palpation noted to right hallux and left heel. - Neurological Exam Neurological Exam: Alert, Awake, Oriented x3 Assessment and Plan - Assessment and Plan (Free Text) Assessment: 77 y/o M patient with right hallux dry gangrene, and left heel deep tissue injury Plan: Patient seen and evaluated at the bedside in ICU. Discussed plan with attending, Dr. Ledezma Vitals, labs and charts reviewed; Afebrile and neutropenic (WBC 0.2) No surgical intervention planned at this time Spoke to the Vascular Dr, who states that he knows the patient. and he knows that he has sever PAD but no plans for surgery as the patient has very low platelets. Continue local wound care - DSD bilateral LE Continue multipodus boots at all times in bed Continue pain control - Tylenol, Lidoderm TD Podiatry will continue to follow up the patient in house.
--- NOTE | 2018-01-17 08:53 | CP.PCM.PN ---
Subjective - Date & Time of Evaluation Date of Evaluation: 01/17/18 Time of Evaluation: 07:40 - Subjective Subjective: Patient evaluated and examined at bedside in AM. No acute events overnight. Hematochezia improved. WBC, RBC and Plt dropping. Abdominal pain improved but still present. B/L leg pain improved. No nausea, vomiting, diarrhea, constipation, CP, SOB or confusion. Objective - Vital Signs/Intake and Output Vital Signs (last 24 hours): Temp Pulse Resp BP Pulse Ox 98.5 F 126 H 24 128/67 100 01/17/18 08:00 01/17/18 08:00 01/17/18 08:00 01/17/18 08:00 01/17/18 08:00 Intake and Output: 01/17/18 01/17/18 06:59 18:59 Intake Total 1140 Output Total 700 Balance 440 - Medications Medications: Current Medications Acetaminophen (Tylenol 325mg Tab) 650 mg PO Q6 PRN PRN Reason: Pain, Mild (1-3) Dextrose (Dextrose 50% Inj) 0 ml IV STAT PRN; Protocol PRN Reason: Hypoglycemia Protocol Dextrose (Glutose 15) 0 gm PO ONCE PRN; Protocol PRN Reason: Hypoglycemia Protocol Glipizide (Glucotrol) 5 mg PO ACBD [facility] Last Admin: 01/17/18 08:22 Dose: 5 mg Glucagon (Glucagen Diagnostic Kit) 0 mg IM STAT PRN; Protocol PRN Reason: Hypoglycemia Protocol Hydromorphone HCl (Dilaudid) 0.5 mg IVP Q4 PRN PRN Reason: Pain, moderate (4-7) Last Admin: 01/17/18 05:01 Dose: 0.5 mg Meropenem 500 mg/ Sodium (Chloride) 100 mls @ 100 mls/hr IVPB Q12 [place] PRN Reason: Protocol Last Admin: 01/17/18 08:24 Dose: 100 mls/hr Pantoprazole Sodium 40 mg/ (Sodium Chloride) 100 mls @ 20 mls/hr IVPB Q5H [place] PRN Reason: 8 MG/HR Last Admin: 01/17/18 08:26 Dose: 20 mls/hr Insulin Human Regular (Humulin R) 0 units SC ACHS [place] PRN Reason: Protocol Last Admin: 01/17/18 06:29 Dose: Not Given Lidocaine (Lidoderm) 2 ea TD DAILY [facility] Last Admin: 01/17/18 08:22 Dose: 2 ea Lidocaine (Lidoderm) 1 ea TD DAILY [facility] Last Admin: 01/17/18 08:24 Dose: 1 ea Lorazepam (Ativan) 0.5 mg IVP Q6 PRN PRN Reason: Agitation Morphine Sulfate (Morphine Extended Release Tab) 15 mg PO Q12 [facility] Last Admin: 01/17/18 08:26 Dose: 15 mg Nystatin (Nystatin Oral Susp) 5 ml PO QID [facility] Last Admin: 01/17/18 08:25 Dose: 5 ml Ondansetron HCl (Zofran Inj) 4 mg IVP Q6 PRN PRN Reason: Nausea/Vomiting Last Admin: 01/14/18 22:43 Dose: 4 mg - Labs Labs: 01/17/18 04:18 01/17/18 04:18 PT 12.5 Seconds (9.8-13.1) 01/11/18 13:37 INR 1.1 (0.9-1.2) 01/11/18 13:37 APTT 33.6 Seconds (25.6-37.1) 01/11/18 13:37 - Constitutional Appears: Well, Non-toxic, No Acute Distress - Head Exam Head Exam: ATRAUMATIC, NORMAL INSPECTION, NORMOCEPHALIC - Eye Exam Eye Exam: EOMI, Normal appearance, PERRL Pupil Exam: NORMAL ACCOMODATION, PERRL - ENT Exam ENT Exam: Mucous Membranes Moist - Respiratory Exam Respiratory Exam: Clear to Ausculation Bilateral, NORMAL BREATHING PATTERN. 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 Currently hemodynamically stable Plan: Pancytopenia - Chronic, Uncontrolled - Severe thrombocytopenia and leukopenia - CBC: WBC-0.2, RBC 8.0, Plt 13 - 1 platelet transfuion ordered for today - Improvement in have Hematochezia and hemetemesis - Continue Granix daily - F/U CBC, Vitals, accuchecks. - Heme/Onc, Dr. Pace: recommendations appreciated - GI consult Dr. Bowens: recommendations appreciated Hypernatremia - Assymptomatic - Worsening, Last Na+ 156 - D/C NS C/W D5W - Hold Sodium bicarbonate - Monitor BMP Hypokelemia - Last K+ 3.1 - Started on KCL 10meq/50 ml D5W - Monitor BMP Sepsis - Resolved, Afebrile - WBC still decreased(0.2) - CT abdomen/pelvis: moderate to severe colitis despite Meropenum - Sputum culture Positive for Klebsiella, yeast - ID, Dr Bright, recommendations appreciated - Meropenem 500 mg IV Q12h day 7 (renally dosed) - Monitor CBC, CMP - As per GI, Continue protonix, follow ID trevor. MECHELLE - improving, BUN 109, Cr 2.2 - GFR improving - Possibly due to dehydration/acute on CKD and also due to saline infusion - Nephrology Dr. Austin on board: Will follow recommendations Abdominal pain - Afebrile, Abdomen tender, guarding, rigidity + - CT abdomen/pelvis: moderate to severe colitis despite Meropenum - Start morphine PO 15 Q8 hr - Dilaudid 0.5 mg IVP Q4hr prn. - GI onsult on board: C/W protonix. C/W Abx DKA - Gap closed - C/W D5W - Anion gap 12, Gluc 222. - Check sugar levels Q2H - insulin regular Q3h low dose protocol - Hypoglycemia protocol - Start Glipizide 5 mg PO BID - Endocrinology, Dr Whitney, recommendations appreciated - Monitor Bicarbonate/anion gap/potassium/glucose Restlessness - Ativan 0.5 IVP Q4hr PRN Myelodysplasia (myelodysplastic syndrome) - Seen by Dr. Pace - on hypomethylating agent (decitabine) as outpatient - growth factor and transfusion support Right big toe necrosis/leg pain - podiatry, recommendations appreciated - no surgical intervention at this time - Dilaudid 0.5 mg IVP Q4hr prn. - D/C Lidoderm patch - Start morphine PO 15 Q8 hr HTN - Controlled - Continue home med Prophylactic measures - NO anticoagulant for DVT prophylaxis due to thrombocytopenia - SCDs
--- NOTE | 2018-01-17 10:36 | CP.CCUPN ---
<Jake Brown - Last Filed: 01/17/18 18:45> CCU Subjective - Physician Review Subjective (Free Text): 01/17/18 08:25 ICU Progress Note 77 y/o male evaluated and examined by bedside. Pt appears sleepy, reports abdominal pain has improved, but still has b/l leg pain and lack of appetite. Pt complained of SOB yesterday's afternoon, oxygen was provided. CXR from yesterday was unremarkable. Today, pt reports SOB has improved. No hematemesis, hematochezia or melena reported. Pt afebrile and NO acute events reported overnight. -Hypernatremia and thrombocytopenia aggravating. CCU Objective - Vital Signs / Intake & Output Vital Signs (Last 4 hours): Vital Signs Temp Pulse Resp BP Pulse Ox 01/17/18 10:00 131 H 17 122/55 L 100 01/17/18 08:00 98.5 F 126 H 24 128/67 100 Intake and Output (Last 8hrs): Intake & Output 01/16/18 01/17/18 01/17/18 22:59 06:59 14:59 Intake Total 860 760 375 Output Total 1000 700 200 Balance -140 60 175 Intake: IV 680 760 225 Intake, Piggyback 80 100 Oral 100 50 Output: Urine 1000 700 200 Urethral (Henriquez) 1000 700 200 Other: # Bowel Movements 2 - Physical Exam Physical Exam Limitations: Positive for: Clinical Condition Head: Positive for: Atraumatic, Normocephalic, Tenderness Pupils: Positive for: PERRL Extroacular Muscles: Positive for: EOMI Conjunctiva: Positive for: Other (Pale) Ears: Positive for: Normal Mouth: Positive for: Dry Nose (Internal): Positive for: Normal Inspection Neck: Positive for: Normal Range of Motion. Negative for: Meningeal Signs, Lymphadenopathy Respiratory/Chest: Positive for: Good Air Exchange. Negative for: Respiratory Distress, Wheezes Cardiovascular: Positive for: Regular Rate and Rhythm Abdomen: Negative for: Tenderness, Distention Upper Extremity: Positive for: Normal Inspection Lower Extremity: Negative for: Neurovascularly Intact (Pt has a pressure ulcer on left heel and a chronic ulcer on right 1st toe. ) Neurological: Positive for: Speech Normal Psychiatric: Positive for: Alert, Oriented x 3 - Medications Active Medications: Active Medications Generic Name Dose Route Start Last Admin Trade Name Freq PRN Reason Stop Dose Admin Acetaminophen 650 mg 01/13/18 14:14 Tylenol 325mg Tab PO Q6 PRN Pain, Mild (1-3) Dextrose 0 ml 01/11/18 14:32 Dextrose 50% Inj IV STAT PRN Hypoglycemia Protocol Protocol Dextrose 0 gm 01/11/18 14:32 Glutose 15 PO ONCE PRN Hypoglycemia Protocol Protocol Glipizide 5 mg 01/15/18 16:30 01/17/18 08:22 Glucotrol PO 5 mg ACBD [facility] Administration Glucagon 0 mg 01/11/18 14:32 Glucagen Diagnostic Kit IM STAT PRN Hypoglycemia Protocol Protocol Hydromorphone HCl 0.5 mg 01/16/18 11:25 01/17/18 05:01 Dilaudid IVP 0.5 mg Q4 PRN Administration Pain, moderate (4-7) Meropenem 500 mg/ Sodium 100 mls @ 100 mls/hr 01/11/18 17:30 01/17/18 08:24 Chloride IVPB 100 mls/hr Q12 [facility] Administration Protocol Pantoprazole Sodium 40 mg/ 100 mls @ 20 mls/hr 01/14/18 00:30 01/17/18 08:26 Sodium Chloride IVPB 20 mls/hr Q5H [facility] Administration 8 MG/HR Insulin Human Regular 0 units 01/14/18 16:30 01/17/18 06:29 Humulin R SC Not Given ACHS [facility] Protocol Lidocaine 2 ea 01/15/18 13:13 01/17/18 08:22 Lidoderm TD 2 ea DAILY [facility] Administration Lidocaine 1 ea 01/15/18 13:15 01/17/18 08:24 Lidoderm TD 1 ea DAILY [facility] Administration Lorazepam 0.5 mg 01/16/18 12:58 Ativan IVP Q6 PRN Agitation Morphine Sulfate 15 mg 01/15/18 09:45 01/17/18 08:26 Morphine Extended Release Tab PO 15 mg Q12 [facility] Administration Nystatin 5 ml 01/15/18 17:00 01/17/18 08:25 Nystatin Oral Susp PO 5 ml QID [facility] Administration Ondansetron HCl 4 mg 01/12/18 09:52 01/14/18 22:43 Zofran Inj IVP 4 mg Q6 PRN Administration Nausea/Vomiting - Patient Studies Lab Studies: Microbiology Studies 01/11/18 14:05 Blood Culture - Final Blood NO GROWTH AFTER 5 DAYS Gram Stain - Final TEST NOT PERFORMED 01/11/18 14:44 Blood Culture - Final Blood NO GROWTH AFTER 5 DAYS Gram Stain - Final TEST NOT PERFORMED 01/12/18 21:06 Gram Stain - Final Sputum Sputum Culture - Final Klebsiella Pneumoniae Ssp Pneu Yeast Species Lab Studies 01/17/18 01/17/18 01/17/18 Range/Units 04:41 04:18 04:18 WBC 0.2 L* (4.8-10.8) K/uL RBC 2.64 L (4.40-5.90) Mil/uL Hgb 8.0 L (12.0-18.0) g/dL Hct 23.3 L (35.0-51.0) % MCV 88.1 (80.0-94.0) fl MCH 30.3 (27.0-31.0) pg MCHC 34.4 (33.0-37.0) g/dL RDW 16.8 H (11.5-14.5) % Plt Count 13 L* D (130-400) K/uL Sodium 156 H (132-148) mmol/l Potassium 3.1 L (3.6-5.0) MMOL/L Chloride 121 H (98-107) mmol/L Carbon Dioxide 26 (22-30) mmol/L Anion Gap 12 (10-20) BUN 104 H* (9-20) mg/dl Creatinine 2.2 H (0.8-1.5) mg/dl Est GFR ( Amer) 35 Est GFR (Non-Af Amer) 29 POC Glucose (mg/dL) 249 H (65-110) mg/dL Random Glucose 178 H (75-110) mg/dL Calcium 7.2 L (8.4-10.2) mg/dL 01/16/18 01/16/18 01/16/18 Range/Units 20:22 17:02 17:01 WBC (4.8-10.8) K/uL RBC (4.40-5.90) Mil/uL Hgb (12.0-18.0) g/dL Hct (35.0-51.0) % MCV (80.0-94.0) fl MCH (27.0-31.0) pg MCHC (33.0-37.0) g/dL RDW (11.5-14.5) % Plt Count (130-400) K/uL Sodium 155 H (132-148) mmol/l Potassium 3.2 L (3.6-5.0) MMOL/L Chloride 119 H (98-107) mmol/L Carbon Dioxide 24 (22-30) mmol/L Anion Gap 15 (10-20) BUN 104 H* (9-20) mg/dl Creatinine 2.1 H (0.8-1.5) mg/dl Est GFR ( Amer) 37 Est GFR (Non-Af Amer) 31 POC Glucose (mg/dL) 225 H 213 H (65-110) mg/dL Random Glucose 214 H (75-110) mg/dL Calcium 7.2 L (8.4-10.2) mg/dL 01/16/18 Range/Units 12:29 WBC (4.8-10.8) K/uL RBC (4.40-5.90) Mil/uL Hgb (12.0-18.0) g/dL Hct (35.0-51.0) % MCV (80.0-94.0) fl MCH (27.0-31.0) pg MCHC (33.0-37.0) g/dL RDW (11.5-14.5) % Plt Count (130-400) K/uL Sodium (132-148) mmol/l Potassium (3.6-5.0) MMOL/L Chloride (98-107) mmol/L Carbon Dioxide (22-30) mmol/L Anion Gap (10-20) BUN (9-20) mg/dl Creatinine (0.8-1.5) mg/dl Est GFR ( Amer) Est GFR (Non-Af Amer) POC Glucose (mg/dL) 157 H (65-110) mg/dL Random Glucose (75-110) mg/dL Calcium (8.4-10.2) mg/dL Laboratory Results - last 24 hr 01/16/18 01/16/18 01/16/18 12:29 17:01 17:02 WBC RBC Hgb Hct MCV MCH MCHC RDW Plt Count Sodium 155 H Potassium 3.2 L Chloride 119 H Carbon Dioxide 24 Anion Gap 15 BUN 104 H* Creatinine 2.1 H Est GFR ( Amer) 37 Est GFR (Non-Af Amer) 31 POC Glucose (mg/dL) 157 H 213 H Random Glucose 214 H Calcium 7.2 L 01/16/18 01/17/18 01/17/18 20:22 04:18 04:18 WBC 0.2 L* RBC 2.64 L Hgb 8.0 L Hct 23.3 L MCV 88.1 MCH 30.3 MCHC 34.4 RDW 16.8 H Plt Count 13 L* D Sodium 156 H Potassium 3.1 L Chloride 121 H Carbon Dioxide 26 Anion Gap 12 BUN 104 H* Creatinine 2.2 H Est GFR ( Amer) 35 Est GFR (Non-Af Amer) 29 POC Glucose (mg/dL) 225 H Random Glucose 178 H Calcium 7.2 L 01/17/18 04:41 WBC RBC Hgb Hct MCV MCH MCHC RDW Plt Count Sodium Potassium Chloride Carbon Dioxide Anion Gap BUN Creatinine Est GFR ( Amer) Est GFR (Non-Af Amer) POC Glucose (mg/dL) 249 H Random Glucose Calcium Fingerstick Blood Sugar Results: 249 Review of Systems - EENT Eyes: absent: Change in Vision Ears: absent: Decreased Hearing, Ear Pain Nose/Mouth/Throat: absent: Epistaxis, Nasal Congestion, Nose Pain - Gastrointestinal Gastrointestinal: Abdominal Pain. absent: Coffee Ground Emesis, Hematochezia, Melena, Nausea, Vomiting - Integumentary Integumentary: absent: Acne, Alopecia, Change in Hair - Neurological Neurological: absent: Abnormal Movements, Loss of Vision, Sensory Deficit, Tingling Critical Care Progress Note - Nutrition Nutrition: Nutrition Category Date Time Status Dysphagia/Modified Consistency Diet [DIET] Diets 01/17/18 Breakfast Active Assessment/Plan - Assessment and Plan (Free Text) Assessment: 77 y/o M with a PMHx of DM 2, R first toe osteomylitis, MDS w/ secondary pancytopenia admitted for management of DKA as pt has been persistently vomiting for 3 days after initiating daily MDS therapy 4 days ago. >Pancytopenia -Secondary to MDS. -On Iron supplement and Granix daily -Hematology on board, Dr Pace -Platelets transfusion today for severe thrombocytopenia. >DM 2 / Diabetic Keto-Acidosis -Insulin SC ACHS, Glipizide PO -IV D5 w/ NaHCO3 at 75mL/hr -Monitor BMP -Hypoglycemia protocol -Endocrinology consult, Dr Whitney. >GI Bleeding -Resolved. -Repeat CT scan: Mac colitis, possible cirrhosis and b/l lower pneumonia. -GI on board, Dr Bowens. No intervention recommended. >Acute Kidney Injury -Persistent elevated BUN/Creat, but trending down. -Possibly due to dehydration/acute on CKD -Nephrology consult, Dr Phoenix >Hypokalemia -KCl 10mEq x2. -Monitor BMP >Hypernatremia/Hyperchloremia -Considering changing IV fluids to D5W or placing a NG tube with water flushing. >Mac-Colitis -ID on consult, Dr Bright -Meropenem was initiated as per ID. >Myelodysplastic Syndrome -Hematology on consult, Katelynn. 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 -Podiatry on consult: X ray -Vascular Surgery Consult. >DVT prophylaxis -SCD's <RehanShade Brandie - Last Filed: 01/17/18 23:48> CCU Subjective - Physician Review Subjective (Free Text): Attestation: Patient seen and examined at the bedside with Resident Dr. Susana Brown; and I agree with his outline of plans and management documented below as discussed on AM rounds reflecting my review of all applicable clinical data, and participation in the care of the patient throughout the day in ICU; today, January 17, 2018.
--- NOTE | 2018-01-17 11:10 | CP.PCM.PN ---
Subjective - Date & Time of Evaluation Date of Evaluation: 01/17/18 Time of Evaluation: 11:10 - Subjective Subjective: ID note- Pt. seen and examined in ICU today. pt. awake but very weak . as per vascular no surgical intervention for the PVD as pt. is thrombocytopenic and too weak for any surgical procedure. Objective - Vital Signs/Intake and Output Vital Signs (last 24 hours): Temp Pulse Resp BP Pulse Ox 98.5 F 131 H 17 122/55 L 100 01/17/18 11:01 01/17/18 11:01 01/17/18 11:01 01/17/18 11:01 01/17/18 10:00 Intake and Output: 01/17/18 01/17/18 06:59 18:59 Intake Total 1140 380 Output Total 700 200 Balance 440 180 - Medications Medications: Current Medications Acetaminophen (Tylenol 325mg Tab) 650 mg PO Q6 PRN PRN Reason: Pain, Mild (1-3) Dextrose (Dextrose 50% Inj) 0 ml IV STAT PRN; Protocol PRN Reason: Hypoglycemia Protocol Dextrose (Glutose 15) 0 gm PO ONCE PRN; Protocol PRN Reason: Hypoglycemia Protocol Glipizide (Glucotrol) 5 mg PO ACBD [facility] Last Admin: 01/17/18 08:22 Dose: 5 mg Glucagon (Glucagen Diagnostic Kit) 0 mg IM STAT PRN; Protocol PRN Reason: Hypoglycemia Protocol Hydromorphone HCl (Dilaudid) 0.5 mg IVP Q4 PRN PRN Reason: Pain, moderate (4-7) Last Admin: 01/17/18 05:01 Dose: 0.5 mg Meropenem 500 mg/ Sodium (Chloride) 100 mls @ 100 mls/hr IVPB Q12 [facility] PRN Reason: Protocol Last Admin: 01/17/18 08:24 Dose: 100 mls/hr Pantoprazole Sodium 40 mg/ (Sodium Chloride) 100 mls @ 20 mls/hr IVPB Q5H [facility] PRN Reason: 8 MG/HR Last Admin: 01/17/18 08:26 Dose: 20 mls/hr Potassium Chloride (Potassium Cl 10meq/50ml Sterile Water) 50 mls @ 50 mls/hr IVPB Q1 [facility] Stop: 01/17/18 12:59 Insulin Human Regular (Humulin R) 0 units SC ACHS [facility] PRN Reason: Protocol Last Admin: 01/17/18 06:29 Dose: Not Given Lidocaine (Lidoderm) 2 ea TD DAILY [facility] Last Admin: 01/17/18 08:22 Dose: 2 ea Lidocaine (Lidoderm) 1 ea TD DAILY [facility] Last Admin: 01/17/18 08:24 Dose: 1 ea Lorazepam (Ativan) 0.5 mg IVP Q6 PRN PRN Reason: Agitation Morphine Sulfate (Morphine Extended Release Tab) 15 mg PO Q12 [facility] Last Admin: 01/17/18 08:26 Dose: 15 mg Nystatin (Nystatin Oral Susp) 5 ml PO QID [facility] Last Admin: 01/17/18 08:25 Dose: 5 ml Ondansetron HCl (Zofran Inj) 4 mg IVP Q6 PRN PRN Reason: Nausea/Vomiting Last Admin: 01/14/18 22:43 Dose: 4 mg - Labs Labs: - Additional Findings Additional findings: - Constitutional Appears: Cachectic, Chronically Ill - Head Exam Head Exam: ATRAUMATIC - Eye Exam Eye Exam: EOMI, PERRL - ENT Exam ENT Exam: Normal Oropharynx - Neck Exam Neck exam: Positive for: Full Rom - Respiratory Exam Respiratory Exam:no wheezing slight decrease in BS in right base - Cardiovascular Exam Cardiovascular Exam: RRR, +S1, +S2 - GI/Abdominal Exam GI & Abdominal Exam: Normal Bowel Sounds, Soft Additional comments: NT, ND - Extremities Exam Additional comments: right distal hallux with necrotic ulcer , no malodor. no surrounding erythema left heel with dry ulcer dark discoloration, no skin breakage - Neurological Exam Neurological exam: Alert, Oriented x 3 but very weak skin- sacral ulcer stage 2 about 2 x 2 cm, no malodor, on obvious discharge Laboratory Results - last 72 hr 01/13/18 01/13/18 01/13/18 04:12 04:12 07:45 WBC RBC Hgb Hct MCV MCH MCHC RDW Plt Count Sodium Potassium Chloride Carbon Dioxide Anion Gap BUN Creatinine Est GFR ( Amer) Est GFR (Non-Af Amer) POC Glucose (mg/dL) Random Glucose Hemoglobin A1c 7.3 H Calcium Total Bilirubin AST ALT Alkaline Phosphatase Total Protein Albumin Globulin Albumin/Globulin Ratio PTH Intact Whole Molec 291 H Blood Type O POSITIVE Antibody Screen Negative Crossmatch See Detail BBK History Checked Patient has bt 01/13/18 01/13/1818 10:16 11:12 12:08 WBC RBC Hgb Hct MCV MCH MCHC RDW Plt Count Sodium Potassium Chloride Carbon Dioxide Anion Gap BUN Creatinine Est GFR ( Amer) Est GFR (Non-Af Amer) POC Glucose (mg/dL) 125 H 125 H 131 H Random Glucose Hemoglobin A1c Calcium Total Bilirubin AST ALT Alkaline Phosphatase Total Protein Albumin Globulin Albumin/Globulin Ratio PTH Intact Whole Molec Blood Type Antibody Screen Crossmatch BBK History Checked 01/13/18 01/13/18 01/13/18 14:57 18:12 21:46 WBC RBC Hgb Hct MCV MCH MCHC RDW Plt Count Sodium Potassium Chloride Carbon Dioxide Anion Gap BUN Creatinine Est GFR ( Amer) Est GFR (Non-Af Amer) POC Glucose (mg/dL) 176 H 168 H 178 H Random Glucose Hemoglobin A1c Calcium Total Bilirubin AST ALT Alkaline Phosphatase Total Protein Albumin Globulin Albumin/Globulin Ratio PTH Intact Whole Molec Blood Type Antibody Screen Crossmatch BBK History Checked 01/14/18 01/14/18 01/14/18 00:46 00:47 02:46 WBC RBC Hgb Hct MCV MCH MCHC RDW Plt Count Sodium Potassium Chloride Carbon Dioxide Anion Gap BUN Creatinine Est GFR ( Amer) Est GFR (Non-Af Amer) POC Glucose (mg/dL) 399 H 194 H 235 H Random Glucose Hemoglobin A1c Calcium Total Bilirubin AST ALT Alkaline Phosphatase Total Protein Albumin Globulin Albumin/Globulin Ratio PTH Intact Whole Molec Blood Type Antibody Screen Crossmatch BBK History Checked 01/14/18 01/14/18 01/14/18 06:18 08:53 15:58 WBC RBC Hgb Hct MCV MCH MCHC RDW Plt Count Sodium Potassium Chloride Carbon Dioxide Anion Gap BUN Creatinine Est GFR ( Amer) Est GFR (Non-Af Amer) POC Glucose (mg/dL) 189 H 200 H 204 H Random Glucose Hemoglobin A1c Calcium Total Bilirubin AST ALT Alkaline Phosphatase Total Protein Albumin Globulin Albumin/Globulin Ratio PTH Intact Whole Molec Blood Type Antibody Screen Crossmatch BBK History Checked 01/14/18 01/15/18 01/15/18 21:54 04:50 04:50 WBC 0.3 L* RBC 2.53 L Hgb 7.6 L Hct 21.9 L MCV 86.9 MCH 29.9 MCHC 34.4 RDW 16.8 H Plt Count 11 L* D Sodium 151 H Potassium 3.8 Chloride 120 H Carbon Dioxide 18 L Anion Gap 17 BUN 138 H* Creatinine 3.0 H Est GFR ( Amer) 25 Est GFR (Non-Af Amer) 20 POC Glucose (mg/dL) 202 H Random Glucose 188 H Hemoglobin A1c Calcium 6.9 L Total Bilirubin 1.4 H AST 10 L D ALT 19 L Alkaline Phosphatase 46 Total Protein 5.1 L Albumin 2.3 L Globulin 2.8 Albumin/Globulin Ratio 0.8 L PTH Intact Whole Molec Blood Type Antibody Screen Crossmatch BBK History Checked 01/15/18 01/15/18 01/15/18 06:38 12:19 16:45 WBC RBC Hgb Hct MCV MCH MCHC RDW Plt Count Sodium Potassium Chloride Carbon Dioxide Anion Gap BUN Creatinine Est GFR ( Amer) Est GFR (Non-Af Amer) POC Glucose (mg/dL) 199 H 208 H 212 H Random Glucose Hemoglobin A1c Calcium Total Bilirubin AST ALT Alkaline Phosphatase Total Protein Albumin Globulin Albumin/Globulin Ratio PTH Intact Whole Molec Blood Type Antibody Screen Crossmatch BBK History Checked 01/15/18 01/16/18 01/16/18 21:19 04:30 04:30 WBC 0.2 L* RBC 2.85 L Hgb 8.5 L Hct 25.0 L MCV 87.6 MCH 29.8 MCHC 34.0 RDW 16.5 H Plt Count 27 L* D Sodium 155 H Potassium 3.3 L Chloride 121 H Carbon Dioxide 22 Anion Gap 15 BUN 109 H* D Creatinine 2.4 H Est GFR ( Amer) 32 Est GFR (Non-Af Amer) 26 POC Glucose (mg/dL) 181 H Random Glucose 125 H Hemoglobin A1c Calcium 7.2 L Total Bilirubin 1.4 H AST 10 L ALT 21 Alkaline Phosphatase 43 Total Protein 5.0 L Albumin 2.3 L Globulin 2.7 Albumin/Globulin Ratio 0.8 L PTH Intact Whole Molec Blood Type Antibody Screen Crossmatch BBK History Checked 01/16/18 01/16/18 01/16/18 05:50 12:29 17:01 WBC RBC Hgb Hct MCV MCH MCHC RDW Plt Count Sodium Potassium Chloride Carbon Dioxide Anion Gap BUN Creatinine Est GFR ( Amer) Est GFR (Non-Af Amer) POC Glucose (mg/dL) 121 H 157 H 213 H Random Glucose Hemoglobin A1c Calcium Total Bilirubin AST ALT Alkaline Phosphatase Total Protein Albumin Globulin Albumin/Globulin Ratio PTH Intact Whole Molec Blood Type Antibody Screen Crossmatch BBK History Checked 01/16/18 01/16/18 01/17/18 17:02 20:22 04:18 WBC 0.2 L* RBC 2.64 L Hgb 8.0 L Hct 23.3 L MCV 88.1 MCH 30.3 MCHC 34.4 RDW 16.8 H Plt Count 13 L* D Sodium 155 H Potassium 3.2 L Chloride 119 H Carbon Dioxide 24 Anion Gap 15 BUN 104 H* Creatinine 2.1 H Est GFR ( Amer) 37 Est GFR (Non-Af Amer) 31 POC Glucose (mg/dL) 225 H Random Glucose 214 H Hemoglobin A1c Calcium 7.2 L Total Bilirubin AST ALT Alkaline Phosphatase Total Protein Albumin Globulin Albumin/Globulin Ratio PTH Intact Whole Molec Blood Type Antibody Screen Crossmatch BBK History Checked 01/17/18 01/17/18 01/17/18 04:18 04:41 11:44 WBC RBC Hgb Hct MCV MCH MCHC RDW Plt Count Sodium 156 H Potassium 3.1 L Chloride 121 H Carbon Dioxide 26 Anion Gap 12 BUN 104 H* Creatinine 2.2 H Est GFR ( Amer) 35 Est GFR (Non-Af Amer) 29 POC Glucose (mg/dL) 249 H 177 H Random Glucose 178 H Hemoglobin A1c Calcium 7.2 L Total Bilirubin AST ALT Alkaline Phosphatase Total Protein Albumin Globulin Albumin/Globulin Ratio PTH Intact Whole Molec Blood Type Antibody Screen Crossmatch BBK History Checked Microbiology 01/11/18 14:05 Blood Blood Culture - Final NO GROWTH AFTER 5 DAYS 01/11/18 14:05 Blood Gram Stain - Final TEST NOT PERFORMED 01/11/18 14:44 Blood Blood Culture - Final NO GROWTH AFTER 5 DAYS 01/11/18 14:44 Blood Gram Stain - Final TEST NOT PERFORMED 01/12/18 21:06 Sputum Gram Stain - Final 01/12/18 21:06 Sputum Sputum Culture - Final Klebsiella Pneumoniae Ssp Pneu Yeast Species 01/11/18 08:25 Naris MRSA Culture (Admit) - Final MRSA NOT DETECTED 01/11/18 12:30 Urine Urine Culture - Final No Growth (<1,000 CFU/ML) Accession No. : [id number] Patient Name / ID : ALEJO SALCEDO BOBBI / [id number] Exam Date : 01/15/2018 16:31:33 ( Approved ) Study Comment : Sex / Age : M / Y Creator : Vickey Terry MD Dictator : Vickey Terry MD Clinical Practitioner : Pocket Setter : Vickey Terry MD Approver2 : Report Date : 01/15/2018 17:07:07 My Comment : Date of service: 01/15/2018 PROCEDURE: CT Abdomen and Pelvis with contrast HISTORY: Unspecified abdominal pain. COMPARISON: None. TECHNIQUE: Oral contrast only. Radiation dose: Total exam DLP = 1569.46 MGy-cm. This CT exam was performed using one or more of the following dose reduction techniques: Automated exposure control, adjustment of the mA and/or kV according to patient size, and/or use of iterative reconstruction technique. FINDINGS: LOWER THORAX: Trace infiltrates and pleural effusions. LIVER: Unremarkable. No gross lesion or ductal dilatation. GALLBLADDER AND BILE DUCTS: Unremarkable. PANCREAS: Unremarkable. No gross lesion or ductal dilatation. SPLEEN: Unremarkable. ADRENALS: Unremarkable. No mass. KIDNEYS AND URETERS: Right kidney: No significant interval change compared to the prior examination(s ). Left kidney: Unremarkable. VASCULATURE: Unremarkable. No aortic aneurysm. BOWEL: Diffuse mural thickening of the colon consistent with moderate -severe pain colitis. APPENDIX: Normal appendix. PERITONEUM: Stable intra-abdominal and pelvic ascites. LYMPH NODES: Unremarkable. No enlarged lymph nodes. BLADDER: Unremarkable. REPRODUCTIVE: Unremarkable. BONES: No acute fracture. OTHER FINDINGS: Subcutaneous edema and anasarca are unchanged. IMPRESSION: Moderate -severe willard colitis without appreciable interval change compared to the prior study. Stable intra-abdominal and pelvic ascites. Accession No. : [id number] Patient Name / ID : ALEJO MARTINES / [id number] Exam Date : 01/16/2018 12:46:06 ( Approved ) Study Comment : Sex / Age : M / Y Creator : Koko Smith MD Dictator : Koko Smith MD Clinical Practitioner : Pocket Setter : Koko Smith MD Approver2 : Report Date : 01/16/2018 14:36:15 My Comment : Date of service: 01/16/2018 HISTORY: SOB COMPARISON: Portable chest 01/13/2018. FINDINGS: LUNGS: No active pulmonary disease. Skin fold noted at the right hemithorax laterally. PLEURA: No significant pleural effusion identified, no pneumothorax apparent. CARDIOVASCULAR: Normal. OSSEOUS STRUCTURES: No significant abnormalities. VISUALIZED UPPER ABDOMEN: Normal. OTHER FINDINGS: None. IMPRESSION: No interval acute cardiopulmonary disease appreciated. Assessment and Plan (1) MECHELLE (acute kidney injury) Status: Acute (2) Chronic wound of extremity Status: Acute (3) Pancytopenia Status: Acute - Assessment and Plan (Free Text) Assessment: A/P- 77 year old male with multiple medical conditions including DM II, chronic Right erlin toe necrotic Ulcer ,? OM , pancytopenia, MDS s/p first chemo admitted with nausea/vomiting, high lactate and glucose found to be in DKA, acute renal insufficiency, hyperkalemic. afebrile pancytopenia- secondary to MDS GIS[place] improving repeat ct abd report-pancolitis as per report. CXR- negative as per report. foot xray- No obvious OM, osteoarthritis blood cx- neg x 2 urine cx- neg sputum cx- Klebsiella and yeast prelim Plan- continue with IV meropenem empirically for nosocomial coverage in light of recently being in [facility] and abd/pelvic CT report of ? colitis/cystitis and also since pt. is neutropenic. day #7. also the klebsiella in sputum cx is sens to this. advise to also add IV flagyl in light of persistent colitis. the chronic foot diabetic ulcer was treated already with IV vanco and zosyn for 20 days. local wound care as per podiatry and vascular. sacral decub to be evaluated by wound nurse. GI bleed management as per GI. All above also d/w DR.Pierre Guzmán at length. ICU time 45 min.
--- NOTE | 2018-01-17 11:32 | CP.PCM.PN ---
Subjective - Date & Time of Evaluation Date of Evaluation: 01/17/18 Time of Evaluation: 11:32 - Subjective Subjective: patient awake and somewhat restless improving somewhat however serum sodium keep going up. Vital sign noted to be stable Objective - Vital Signs/Intake and Output Vital Signs (last 24 hours): Temp Pulse Resp BP Pulse Ox 98.5 F 125 H 16 136/66 100 01/17/18 11:16 01/17/18 11:16 01/17/18 11:16 01/17/18 11:16 01/17/18 10:00 Intake and Output: 01/17/18 01/17/18 06:59 18:59 Intake Total 1140 380 Output Total 700 200 Balance 440 180 - Medications Medications: Current Medications Acetaminophen (Tylenol 325mg Tab) 650 mg PO Q6 PRN PRN Reason: Pain, Mild (1-3) Dextrose (Dextrose 50% Inj) 0 ml IV STAT PRN; Protocol PRN Reason: Hypoglycemia Protocol Dextrose (Glutose 15) 0 gm PO ONCE PRN; Protocol PRN Reason: Hypoglycemia Protocol Glipizide (Glucotrol) 5 mg PO ACBD [facility] Last Admin: 01/17/18 08:22 Dose: 5 mg Glucagon (Glucagen Diagnostic Kit) 0 mg IM STAT PRN; Protocol PRN Reason: Hypoglycemia Protocol Hydromorphone HCl (Dilaudid) 0.5 mg IVP Q4 PRN PRN Reason: Pain, moderate (4-7) Last Admin: 01/17/18 05:01 Dose: 0.5 mg Meropenem 500 mg/ Sodium (Chloride) 100 mls @ 100 mls/hr IVPB Q12 [facility] PRN Reason: Protocol Last Admin: 01/17/18 08:24 Dose: 100 mls/hr Pantoprazole Sodium 40 mg/ (Sodium Chloride) 100 mls @ 20 mls/hr IVPB Q5H [facility] PRN Reason: 8 MG/HR Last Admin: 01/17/18 08:26 Dose: 20 mls/hr Potassium Chloride (Potassium Cl 10meq/50ml Sterile Water) 50 mls @ 50 mls/hr IVPB Q1 [facility] Stop: 01/17/18 12:59 Dextrose (Dextrose 5% In Water 1000 Ml) 1,000 mls @ 100 mls/hr IV .Q10H [facility] Stop: 01/18/18 11:28 Insulin Human Regular (Humulin R) 0 units SC ACHS [facility] PRN Reason: Protocol Last Admin: 01/17/18 06:29 Dose: Not Given Lorazepam (Ativan) 0.5 mg IVP Q6 PRN PRN Reason: Agitation Morphine Sulfate (Morphine Extended Release Tab) 15 mg PO Q8 [facility] Nystatin (Nystatin Oral Susp) 5 ml PO QID [facility] Last Admin: 01/17/18 08:25 Dose: 5 ml Ondansetron HCl (Zofran Inj) 4 mg IVP Q6 PRN PRN Reason: Nausea/Vomiting Last Admin: 01/14/18 22:43 Dose: 4 mg - Labs Labs: 01/17/18 04:18 01/17/18 04:18 PT 12.5 Seconds (9.8-13.1) 01/11/18 13:37 INR 1.1 (0.9-1.2) 01/11/18 13:37 APTT 33.6 Seconds (25.6-37.1) 01/11/18 13:37 - Constitutional Appears: No Acute Distress - ENT Exam ENT Exam: Mucous Membranes Moist - Neck Exam Neck Exam: absent: Lymphadenopathy - Respiratory Exam Respiratory Exam: NORMAL BREATHING PATTERN - Cardiovascular Exam Cardiovascular Exam: absent: Gallop, JVD, Rubs - GI/Abdominal Exam GI & Abdominal Exam: Soft, Normal Bowel Sounds - Extremities Exam Extremities Exam: absent: Calf Tenderness - Back Exam Back Exam: absent: CVA tenderness (L), CVA tenderness (R) - Neurological Exam Neurological Exam: Alert - Psychiatric Exam Psychiatric exam: Normal Affect - Skin Skin Exam: absent: Cyanosis Assessment and Plan (1) MECHELLE (acute kidney injury) Assessment & Plan: Acute kidney injury continue to improve superimposed on chronic kidney disease stage III perhaps. dehydration improving hypokalemia patient needed potassium supplement Metabolic acidosis improving Pancytopenia Foot ulcer sepsis hypernatremia getting worse Myeloproliferative disorder with the status post chemotherapy anemia my recommendation Give D5W with no sodium bicarbonate at 100 mL/h mix all IV medication with D5 W do not mix with normal saline Status: Acute (2) Chronic wound of extremity Status: Acute
[2018-01-17] MEDS: Potassium CL 10 MEQ/50 ML 50 ML IVPB SCH ×2 (11:43→13:04)
--- NOTE | 2018-01-17 15:08 | PN ---
DATE: 01/17/2018 ENDO FOLLOWUP NOTE This is a 77-year-old male with recent marked metabolic acidosis with supervening acute renal failure and with underlying chronic kidney disease and has since then improved clinically and metabolically as noted thereof. He continues to have persistent hypernatremia, although the metabolic acidosis has now resolved as noted. His creatinine levels have also improved remarkably with vigorous IV hydration as given. His overnight glycemic fluctuations have been observed and noted and glucose values have ranged from 177 to 249 mg/dL. His chemistry showed a BUN of 104, sodium 156, potassium 3.1, chloride 121, CO2 is 26, glucose 178 and creatinine 2.2. His calcium level is 7.2. So at this time, we will modify once again his oral hypoglycemic therapy and increase the glipizide to 10 mg p.o. b.i.d. before meals to start today. We will obtain serial chemistries and supplement accordingly as needed. We will also continue the IV hydration with dextrose with D5W running at 100 mL/h as ordered. We will obtain serial chemistries and supplement accordingly as needed. We will also continue the very low-dose correction scale using regular insulin as given. We will follow. Umu Whitney MD
[2018-01-17] MEDS: metroNIDAZOLE 500mg/100ml NS 100 ML IVPB SCH (16:16)
--- NOTE | 2018-01-17 21:19 | CP.PCM.PN ---
Subjective - Date & Time of Evaluation Date of Evaluation: 01/17/18 Time of Evaluation: 18:00 - Subjective Subjective: Breathing better with oxygen Objective - Vital Signs/Intake and Output Vital Signs (last 24 hours): Temp Pulse Resp BP Pulse Ox 100.5 F H 116 H 18 106/53 L 100 01/17/18 20:00 01/17/18 20:00 01/17/18 20:00 01/17/18 20:00 01/17/18 20:00 Intake and Output: 01/17/18 01/18/18 18:59 06:59 Intake Total 1592 220 Output Total 400 Balance 1192 220 - Medications Medications: Current Medications Acetaminophen (Tylenol 325mg Tab) 650 mg PO Q6 PRN PRN Reason: Pain, Mild (1-3) Dextrose (Dextrose 50% Inj) 0 ml IV STAT PRN; Protocol PRN Reason: Hypoglycemia Protocol Dextrose (Glutose 15) 0 gm PO ONCE PRN; Protocol PRN Reason: Hypoglycemia Protocol Glipizide (Glucotrol) 10 mg PO ACBD [facility] Last Admin: 01/17/18 16:16 Dose: 10 mg Glucagon (Glucagen Diagnostic Kit) 0 mg IM STAT PRN; Protocol PRN Reason: Hypoglycemia Protocol Hydromorphone HCl (Dilaudid) 0.5 mg IVP Q4 PRN PRN Reason: Pain, moderate (4-7) Last Admin: 01/17/18 17:20 Dose: 0.5 mg Meropenem 500 mg/ Sodium (Chloride) 100 mls @ 100 mls/hr IVPB Q12 [facility] PRN Reason: Protocol Last Admin: 01/17/18 20:23 Dose: 100 mls/hr Pantoprazole Sodium 40 mg/ (Sodium Chloride) 100 mls @ 20 mls/hr IVPB Q5H [facility] PRN Reason: 8 MG/HR Last Admin: 01/17/18 21:06 Dose: 20 mls/hr Dextrose (Dextrose 5% In Water 1000 Ml) 1,000 mls @ 100 mls/hr IV .Q10H [facility] Stop: 01/18/18 11:28 Last Admin: 01/17/18 11:34 Dose: 100 mls/hr Metronidazole (Flagyl 500mg/100ml Ns) 100 mls @ 100 mls/hr IVPB Q8 [facility] PRN Reason: Protocol Last Admin: 01/17/18 16:16 Dose: 100 mls/hr Insulin Human Regular (Humulin R) 0 units SC ACHS [facility] PRN Reason: Protocol Last Admin: 01/17/18 16:10 Dose: Not Given Lorazepam (Ativan) 0.5 mg IVP Q6 PRN PRN Reason: Agitation Morphine Sulfate (Morphine Extended Release Tab) 15 mg PO Q8 [facility] Last Admin: 01/17/18 16:15 Dose: 15 mg Nystatin (Nystatin Oral Susp) 5 ml PO QID [facility] Last Admin: 01/17/18 21:08 Dose: 5 ml Ondansetron HCl (Zofran Inj) 4 mg IVP Q6 PRN PRN Reason: Nausea/Vomiting Last Admin: 01/14/18 22:43 Dose: 4 mg - Labs Labs: 01/17/18 04:18 01/17/18 04:18 PT 12.5 Seconds (9.8-13.1) 01/11/18 13:37 INR 1.1 (0.9-1.2) 01/11/18 13:37 APTT 33.6 Seconds (25.6-37.1) 01/11/18 13:37 - Head Exam Head Exam: ATRAUMATIC - Eye Exam Eye Exam: Normal appearance - ENT Exam ENT Exam: Mucous Membranes Dry - Respiratory Exam Respiratory Exam: NORMAL BREATHING PATTERN - Cardiovascular Exam Cardiovascular Exam: +S1, +S2 - GI/Abdominal Exam GI & Abdominal Exam: Normal Bowel Sounds Assessment and Plan (1) Pancytopenia Assessment & Plan: secondary to MDS on Granix daily, neutropenic precautions given uremia; goal plt > 20,000 Status: Acute (2) Myelodysplasia (myelodysplastic syndrome) Assessment & Plan: s/p partial decitabine treatment growth factor and transfusion support Status: Chronic
[2018-01-18] MEDS: metroNIDAZOLE 500mg/100ml NS 100 ML IVPB SCH ×2 (00:45→08:50)
[2018-01-18] MEDS: Morphine 15 mg SR Tab PO SCH ×3 (00:45→17:22)
[2018-01-18] MEDS: Pantoprazole 40 MG in Sodium Chloride 0.9% 100 ML IVPB SCH ×4 (03:11→18:47)
[2018-01-18 05:29] LABS: HEMOGLOBIN 6.7 g/dL (12.0-18.0); MEAN CELL VOLUME 89.2 fl (80.0-94.0); MEAN CORPUSCULAR HEMOGLOBIN 30.1 pg (27.0-31.0); MEAN CORPUSCULAR HGB CONC 33.7 g/dL (33.0-37.0); RBC 2.24 Mil/uL (4.40-5.90); RED CELL DISTRIBUTION WIDTH 16.9 % (11.5-14.5)
[2018-01-18 06:01] LABS: ALB/GLOB RATIO 0.8 (1.0-2.1); ALBUMIN 1.8 g/dL (3.5-5.0); CALCIUM 6.9 mg/dL (8.4-10.2)
[2018-01-18 06:02] LABS: WHITE BLOOD COUNT 0.2 K/uL (4.8-10.8)
[2018-01-18] MEDS ORDERED: Sodium Chloride 0.9% 1,000 ML IV SCH (06:05)
[2018-01-18] MEDS: Insulin Regular 100 units/ml SC SCH ×3 (06:32→17:22)
--- NOTE | 2018-01-18 07:25 | CP.PCM.PN ---
Subjective - Date & Time of Evaluation Date of Evaluation: 01/18/18 Time of Evaluation: 07:40 - Subjective Subjective: Patient evaluated and examined by bedside in AM. Pt is sleeping on bed, unresponsive to verbal stimuli, responsive to tactile and painful stimulation. Blood pressure started dropping overnight. currently 98/59. Dropped to lowest of 74/40 earlier this morning. Melena continues. WBC, RBC and Plt dropping despite granix and platelet transfusion yesterday. Patient given Dulaudid for generalized pain and acute distress in the morning. No nausea, vomiting, diarrhea, constipation, CP, SOB. Pt still has hypernatremia and hyperchloremia depsite IV D5. Objective - Vital Signs/Intake and Output Vital Signs (last 24 hours): Temp Pulse Resp BP Pulse Ox 98 F 99 H 28 H 78/40 L 100 01/18/18 04:00 01/18/18 06:00 01/18/18 06:00 01/18/18 06:00 01/18/18 06:00 Intake and Output: 01/18/18 01/18/18 06:59 18:59 Intake Total 1300 Output Total 250 Balance 1050 - Medications Medications: Current Medications Acetaminophen (Tylenol 325mg Tab) 650 mg PO Q6 PRN PRN Reason: Pain, Mild (1-3) Dextrose (Dextrose 50% Inj) 0 ml IV STAT PRN; Protocol PRN Reason: Hypoglycemia Protocol Dextrose (Glutose 15) 0 gm PO ONCE PRN; Protocol PRN Reason: Hypoglycemia Protocol Glipizide (Glucotrol) 10 mg PO ACBD [facility] Last Admin: 01/17/18 16:16 Dose: 10 mg Glucagon (Glucagen Diagnostic Kit) 0 mg IM STAT PRN; Protocol PRN Reason: Hypoglycemia Protocol Hydromorphone HCl (Dilaudid) 0.5 mg IVP Q4 PRN PRN Reason: Pain, moderate (4-7) Last Admin: 01/17/18 17:20 Dose: 0.5 mg Meropenem 500 mg/ Sodium (Chloride) 100 mls @ 100 mls/hr IVPB Q12 [facility] PRN Reason: Protocol Last Admin: 01/17/18 20:23 Dose: 100 mls/hr Pantoprazole Sodium 40 mg/ (Sodium Chloride) 100 mls @ 20 mls/hr IVPB Q5H [facility] PRN Reason: 8 MG/HR Last Admin: 01/18/18 03:11 Dose: 20 mls/hr Dextrose (Dextrose 5% In Water 1000 Ml) 1,000 mls @ 100 mls/hr IV .Q10H [facility] Stop: 01/18/18 11:28 Last Admin: 01/18/18 00:47 Dose: 100 mls/hr Metronidazole (Flagyl 500mg/100ml Ns) 100 mls @ 100 mls/hr IVPB Q8 [facility] PRN Reason: Protocol Last Admin: 01/18/18 00:45 Dose: 100 mls/hr Sodium Chloride (Sodium Chloride 0.9%) 1,000 mls @ 999 mls/hr IV .Q1H1M [facility] Stop: 01/19/18 07:05 Last Admin: 01/18/18 06:43 Dose: 999 mls/hr Insulin Human Regular (Humulin R) 0 units SC ACHS [facility] PRN Reason: Protocol Last Admin: 01/18/18 06:32 Dose: Not Given Lorazepam (Ativan) 0.5 mg IVP Q6 PRN PRN Reason: Agitation Morphine Sulfate (Morphine Extended Release Tab) 15 mg PO Q8 [facility] Last Admin: 01/18/18 00:45 Dose: Not Given Nystatin (Nystatin Oral Susp) 5 ml PO QID [facility] Last Admin: 01/17/18 21:08 Dose: 5 ml Ondansetron HCl (Zofran Inj) 4 mg IVP Q6 PRN PRN Reason: Nausea/Vomiting Last Admin: 01/14/18 22:43 Dose: 4 mg - Labs Labs: 01/18/18 04:45 01/18/18 04:45 PT 12.5 Seconds (9.8-13.1) 01/11/18 13:37 INR 1.1 (0.9-1.2) 01/11/18 13:37 APTT 33.6 Seconds (25.6-37.1) 01/11/18 13:37 - Constitutional Appears: Other - Head Exam Head Exam: ATRAUMATIC, NORMAL INSPECTION, NORMOCEPHALIC - Eye Exam Additional comments: Patient sleeping and drowsy, Received dulaidid few mins ago. HEENT deferred at this time. - ENT Exam ENT Exam: Mucous Membranes Moist - Respiratory Exam Respiratory Exam: Clear to Ausculation Bilateral, NORMAL BREATHING PATTERN. absent: Rales, Rhonchi, Wheezes, Respiratory Distress - Cardiovascular Exam Cardiovascular Exam: REGULAR RHYTHM, +S1, +S2. absent: Murmur - GI/Abdominal Exam GI & Abdominal Exam: Distended, Rigid, Tenderness, Normal Bowel Sounds - Rectal Exam Rectal Exam: Deferred - Extremities Exam Extremities Exam: Tenderness. 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 Plan: Pancytopenia - Chronic, Uncontrolled - Severe thrombocytopenia and leukopenia - CBC: WBC-0.2, RBC 8.0, Plt 13 - 1 platelet transfuion ordered for today - Improvement in have Hematochezia and hemetemesis - Continue Granix daily - F/U CBC, Vitals, accuchecks. - Heme/Onc, Dr. Pace: recommendations appreciated - GI consult Dr. Bowens: recommendations appreciated Hypotension - Dropped overnight to 74/40 - C/W D5W - Norepinephrine 4 mg in 250 D5W Hypernatremia - Worsening, Last Na+ 154 - Hold Sodium bicarbonate - Monitor BMP Hypokelemia - Last K+ 3.2 - Monitor BMP Sepsis - Afebrile - WBC still decreased(0.2) - CT abdomen/pelvis: moderate to severe colitis despite Meropenum - Sputum culture Positive for Klebsiella, yeast - ID, Dr Bright, recommendations appreciated - Meropenem 500 mg IV Q12h day 7 (renally dosed) - Monitor CBC, CMP - As per GI, Continue protonix, follow ID trevor. MECHELLE - Worsening BUN 109, Cr 2.8 - Possibly due to dehydration/acute on CKD and also due to saline infusion - Nephrology Dr. Austin on board: Will follow recommendations Abdominal pain - Afebrile, Abdomen tender, guarding, rigidity + - CT abdomen/pelvis: moderate to severe colitis despite Meropenum - Start morphine PO 15 Q8 hr - Dilaudid 0.5 mg IVP Q4hr prn. - GI onsult on board: C/W protonix. C/W Abx DKA - Worsening - C/W D5W - Anion gap 16, Gluc 131. - Check sugar levels Q2H - insulin regular Q3h low dose protocol - Hypoglycemia protocol - Start Glipizide 5 mg PO BID - Endocrinology, Dr Whitney, recommendations appreciated - Monitor Bicarbonate/anion gap/potassium/glucose Restlessness - Ativan 0.5 IVP Q4hr PRN Myelodysplasia (myelodysplastic syndrome) - Seen by Dr. Pace - on hypomethylating agent (decitabine) as outpatient - growth factor and transfusion support Right big toe necrosis/leg pain - podiatry, recommendations appreciated - no surgical intervention at this time - Dilaudid 0.5 mg IVP Q4hr prn. - D/C Lidoderm patch - Start morphine PO 15 Q8 hr HTN - Controlled - Continue home med Prophylactic measures - NO anticoagulant for DVT prophylaxis due to thrombocytopenia - SCDs
[2018-01-18] MEDS: Meropenem 500 MG in Sodium Chloride 0.9% 100 ML IVPB SCH (08:51)
[2018-01-18] MEDS: Nystatin 100,000 Units/ml Oral Susp 5 ml UD PO SCH ×2 (08:52→12:12)
[2018-01-18] MEDS: HYDROmorphone 0.5 mg/0.5 ml ISec IVP PRN (09:04)
--- NOTE | 2018-01-18 09:23 | CP.PCM.PN ---
Subjective - Date & Time of Evaluation Date of Evaluation: 01/18/18 Time of Evaluation: 09:23 - Subjective Subjective: patient in bed appears to be chronically ill and awake vital sign noted Objective - Vital Signs/Intake and Output Vital Signs (last 24 hours): Temp Pulse Resp BP Pulse Ox 97.9 F 113 H 24 105/56 L 100 01/18/18 08:00 01/18/18 08:00 01/18/18 08:00 01/18/18 08:00 01/18/18 08:00 Intake and Output: 01/18/18 01/18/18 06:59 18:59 Intake Total 1300 Output Total 250 Balance 1050 - Medications Medications: Current Medications Acetaminophen (Tylenol 325mg Tab) 650 mg PO Q6 PRN PRN Reason: Pain, Mild (1-3) Dextrose (Dextrose 50% Inj) 0 ml IV STAT PRN; Protocol PRN Reason: Hypoglycemia Protocol Dextrose (Glutose 15) 0 gm PO ONCE PRN; Protocol PRN Reason: Hypoglycemia Protocol Glipizide (Glucotrol) 10 mg PO ACBD [facility] Last Admin: 01/18/18 08:50 Dose: 10 mg Glucagon (Glucagen Diagnostic Kit) 0 mg IM STAT PRN; Protocol PRN Reason: Hypoglycemia Protocol Hydromorphone HCl (Dilaudid) 0.5 mg IVP Q4 PRN PRN Reason: Pain, moderate (4-7) Last Admin: 01/18/18 09:04 Dose: 0.5 mg Meropenem 500 mg/ Sodium (Chloride) 100 mls @ 100 mls/hr IVPB Q12 [facility] PRN Reason: Protocol Last Admin: 01/18/18 08:51 Dose: 100 mls/hr Pantoprazole Sodium 40 mg/ (Sodium Chloride) 100 mls @ 20 mls/hr IVPB Q5H [facility] PRN Reason: 8 MG/HR Last Admin: 01/18/18 08:16 Dose: 20 mls/hr Dextrose (Dextrose 5% In Water 1000 Ml) 1,000 mls @ 100 mls/hr IV .Q10H [facility] Stop: 01/18/18 11:28 Last Admin: 01/18/18 00:47 Dose: 100 mls/hr Metronidazole (Flagyl 500mg/100ml Ns) 100 mls @ 100 mls/hr IVPB Q8 [facility] PRN Reason: Protocol Last Admin: 01/18/18 08:50 Dose: 100 mls/hr Sodium Chloride (Sodium Chloride 0.9%) 1,000 mls @ 999 mls/hr IV .Q1H1M [facility] Stop: 01/19/18 07:05 Last Admin: 01/18/18 06:43 Dose: 999 mls/hr Insulin Human Regular (Humulin R) 0 units SC ACHS [facility] PRN Reason: Protocol Last Admin: 01/18/18 06:32 Dose: Not Given Lorazepam (Ativan) 0.5 mg IVP Q6 PRN PRN Reason: Agitation Morphine Sulfate (Morphine Extended Release Tab) 15 mg PO Q8 [facility] Last Admin: 01/18/18 00:45 Dose: Not Given Nystatin (Nystatin Oral Susp) 5 ml PO QID [facility] Last Admin: 01/18/18 08:52 Dose: 5 ml Ondansetron HCl (Zofran Inj) 4 mg IVP Q6 PRN PRN Reason: Nausea/Vomiting Last Admin: 01/14/18 22:43 Dose: 4 mg - Labs Labs: 01/18/18 04:45 01/18/18 04:45 PT 12.5 Seconds (9.8-13.1) 01/11/18 13:37 INR 1.1 (0.9-1.2) 01/11/18 13:37 APTT 33.6 Seconds (25.6-37.1) 01/11/18 13:37 - Constitutional Appears: No Acute Distress - ENT Exam ENT Exam: Mucous Membranes Dry - Neck Exam Neck Exam: absent: Lymphadenopathy - Respiratory Exam Respiratory Exam: NORMAL BREATHING PATTERN - Cardiovascular Exam Cardiovascular Exam: absent: Gallop, JVD, Rubs - GI/Abdominal Exam GI & Abdominal Exam: Soft, Normal Bowel Sounds - Extremities Exam Extremities Exam: absent: Calf Tenderness - Back Exam Back Exam: absent: CVA tenderness (L), CVA tenderness (R) - Neurological Exam Neurological Exam: Alert - Psychiatric Exam Psychiatric exam: Normal Affect - Skin Skin Exam: absent: Cyanosis Assessment and Plan (1) MECHELLE (acute kidney injury) Assessment & Plan: hypokalemia patient needed potassium supplement acute kidney injury superimposed on chronic kidney disease stage IV. Serum creatinine in the range of 2.6+ minus Metabolic acidosis improving Pancytopenia Foot ulcer sepsis hypernatremia gettin slightly better than yesterday Myeloproliferative disorder with the status post chemotherapy anemia my recommendation Give D5W with no sodium bicarbonate at 100 mL/h mix all IV medication with D5 W do not mix with normal saline potassium supplement Check serum magnesium serum calcium 6.9 and serum albumin 1.8 sodium corrected serum calcium will be around 7.3 Status: Acute (2) Chronic wound of extremity Status: Acute
--- NOTE | 2018-01-18 10:14 | CP.CCUPN ---
<StephanieJake - Last Filed: 01/18/18 17:34> CCU Subjective - Physician Review Subjective (Free Text): 01/18/18 10:13 ICU Progress Note 77 y/o male evaluated and examined by bedside. Pt is unresponsive to verbal stimuli, sleeping on bed, responsive to tactile and painful stimulation. His BP has been decreasing to 78/40, lowest. Currently in the 90s/50s. Platelet count also decreased despite platelet transfusion yesterday. Pt still has hypernatremia and hyperchloremia depsite IV D5W. Worsening pancytopenia. Pt with poor appetite yesterday, no good PO input, had melena overnight. CCU Objective - Vital Signs / Intake & Output Vital Signs (Last 4 hours): Vital Signs Temp Pulse Resp BP Pulse Ox 01/18/18 09:52 87 18 54/31 L 100 01/18/18 08:00 97.9 F 113 H 24 105/56 L 100 Intake and Output (Last 8hrs): Intake & Output 01/17/18 01/18/18 01/18/18 22:59 06:59 14:59 Intake Total 950 860 600 Output Total 100 250 Balance 850 610 600 Weight 49.895 kg Intake: IV 740 760 400 Intake, Piggyback 200 100 200 Oral 10 Output: Urine 100 250 Urethral (Henriquez) 100 250 Other: # Bowel Movements 1 - Physical Exam Physical Exam Limitations: Positive for: Altered Mental Status Head: Positive for: Atraumatic, Normocephalic Pupils: Positive for: PERRL Conjunctiva: Positive for: Other (Pale) Ears: Positive for: Normal Mouth: Positive for: Dry Nose (Internal): Positive for: Normal Inspection Neck: Positive for: Normal Range of Motion. Negative for: Meningeal Signs, Lymphadenopathy Respiratory/Chest: Positive for: Good Air Exchange. Negative for: Respiratory Distress, Wheezes Cardiovascular: Positive for: Regular Rate and Rhythm Abdomen: Negative for: Tenderness, Distention Upper Extremity: Positive for: Normal Inspection Lower Extremity: Negative for: Neurovascularly Intact (Pt has a pressure ulcer on left heel and a chronic ulcer on right 1st toe. ) Neurological: Positive for: Speech Normal Psychiatric: Positive for: Alert, Oriented x 3 - Medications Active Medications: Active Medications Generic Name Dose Route Start Last Admin Trade Name Freq PRN Reason Stop Dose Admin Acetaminophen 650 mg 01/13/18 14:14 Tylenol 325mg Tab PO Q6 PRN Pain, Mild (1-3) Dextrose 0 ml 01/11/18 14:32 Dextrose 50% Inj IV STAT PRN Hypoglycemia Protocol Protocol Dextrose 0 gm 01/11/18 14:32 Glutose 15 PO ONCE PRN Hypoglycemia Protocol Protocol Glipizide 10 mg 01/17/18 16:30 01/18/18 08:50 Glucotrol PO 10 mg ACBD CAMILLE Administration Glucagon 0 mg 01/11/18 14:32 Glucagen Diagnostic Kit IM STAT PRN Hypoglycemia Protocol Protocol Hydromorphone HCl 0.5 mg 01/16/18 11:25 01/18/18 09:04 Dilaudid IVP 0.5 mg Q4 PRN Administration Pain, moderate (4-7) Meropenem 500 mg/ Sodium 100 mls @ 100 mls/hr 01/11/18 17:30 01/18/18 08:51 Chloride IVPB 100 mls/hr Q12 CAMILLE Administration Protocol Pantoprazole Sodium 40 mg/ 100 mls @ 20 mls/hr 01/14/18 00:30 01/18/18 08:16 Sodium Chloride IVPB 20 mls/hr Q5H CAM[place]LE Administration 8 MG/HR Dextrose 1,000 mls @ 100 mls/hr 01/17/18 11:30 01/18/18 00:47 Dextrose 5% In Water 1000 Ml IV 01/18/18 11:28 100 mls/hr .Q10H CAM[place]LE Administration Metronidazole 100 mls @ 100 mls/hr 01/17/18 17:00 01/18/18 08:50 Flagyl 500mg/100ml Ns IVPB 100 mls/hr Q8 CAMILLE Administration Protocol Sodium Chloride 1,000 mls @ 999 mls/hr 01/18/18 06:05 01/18/18 06:43 Sodium Chloride 0.9% IV 01/19/18 07:05 999 mls/hr .Q1H1M CAM[place] Administration Norepinephrine Bitartrate 4 mg 254 mls @ 9.52 mls/hr 01/18/18 10:15 / Dextrose IV .Q24H CAM[place] Protocol 2.5 MCG/MIN Insulin Human Regular 0 units 01/14/18 16:30 01/18/18 06:32 Humulin R SC Not Given ACHS CAM[place]LE Protocol Lorazepam 0.5 mg 01/16/18 12:58 Ativan IVP Q6 PRN Agitation Morphine Sulfate 15 mg 01/17/18 17:00 01/18/18 00:45 Morphine Extended Release Tab PO Not Given Q8 CAMILLE Nystatin 5 ml 01/15/18 17:00 01/18/18 08:52 Nystatin Oral Susp PO 5 ml QID CAM[place]LE Administration Ondansetron HCl 4 mg 01/12/18 09:52 01/14/18 22:43 Zofran Inj IVP 4 mg Q6 PRN Administration Nausea/Vomiting - Patient Studies Lab Studies: Lab Studies 01/18/18 01/18/18 01/18/18 Range/Units 07:10 05:05 04:45 WBC (4.8-10.8) K/uL RBC (4.40-5.90) Mil/uL Hgb (12.0-18.0) g/dL Hct (35.0-51.0) % MCV (80.0-94.0) fl MCH (27.0-31.0) pg MCHC (33.0-37.0) g/dL RDW (11.5-14.5) % Plt Count (130-400) K/uL Sodium 154 H (132-148) mmol/l Potassium 3.2 L (3.6-5.0) MMOL/L Chloride 119 H (98-107) mmol/L Carbon Dioxide 24 (22-30) mmol/L Anion Gap 14 (10-20) BUN 107 H* (9-20) mg/dl Creatinine 2.8 H (0.8-1.5) mg/dl Est GFR ( Amer) 27 Est GFR (Non-Af Amer) 22 POC Glucose (mg/dL) 131 H (65-110) mg/dL Random Glucose 121 H (75-110) mg/dL Calcium 6.9 L (8.4-10.2) mg/dL Total Bilirubin 1.2 (0.2-1.3) mg/dl AST 29 (17-59) U/L ALT 28 (21-72) U/L Alkaline Phosphatase 62 (38-126) U/L Total Protein 4.3 L (6.3-8.2) G/DL Albumin 1.8 L D (3.5-5.0) g/dL Globulin 2.4 (2.2-3.9) gm/dL Albumin/Globulin Ratio 0.8 L (1.0-2.1) Blood Type O POSITIVE Antibody Screen Negative Crossmatch See Detail BBK History Checked Patient has bt 01/18/18 01/17/18 01/17/18 Range/Units 04:45 21:39 16:09 WBC 0.2 L* (4.8-10.8) K/uL RBC 2.24 L (4.40-5.90) Mil/uL Hgb 6.7 L (12.0-18.0) g/dL Hct 20.0 L (35.0-51.0) % MCV 89.2 (80.0-94.0) fl MCH 30.1 (27.0-31.0) pg MCHC 33.7 (33.0-37.0) g/dL RDW 16.9 H (11.5-14.5) % Plt Count 3 L* D (130-400) K/uL Sodium (132-148) mmol/l Potassium (3.6-5.0) MMOL/L Chloride (98-107) mmol/L Carbon Dioxide (22-30) mmol/L Anion Gap (10-20) BUN (9-20) mg/dl Creatinine (0.8-1.5) mg/dl Est GFR ( Amer) Est GFR (Non-Af Amer) POC Glucose (mg/dL) 151 H 169 H (65-110) mg/dL Random Glucose (75-110) mg/dL Calcium (8.4-10.2) mg/dL Total Bilirubin (0.2-1.3) mg/dl AST (17-59) U/L ALT (21-72) U/L Alkaline Phosphatase (38-126) U/L Total Protein (6.3-8.2) G/DL Albumin (3.5-5.0) g/dL Globulin (2.2-3.9) gm/dL Albumin/Globulin Ratio (1.0-2.1) Blood Type Antibody Screen Crossmatch BBK History Checked 01/17/18 Range/Units 11:44 WBC (4.8-10.8) K/uL RBC (4.40-5.90) Mil/uL Hgb (12.0-18.0) g/dL Hct (35.0-51.0) % MCV (80.0-94.0) fl MCH (27.0-31.0) pg MCHC (33.0-37.0) g/dL RDW (11.5-14.5) % Plt Count (130-400) K/uL Sodium (132-148) mmol/l Potassium (3.6-5.0) MMOL/L Chloride (98-107) mmol/L Carbon Dioxide (22-30) mmol/L Anion Gap (10-20) BUN (9-20) mg/dl Creatinine (0.8-1.5) mg/dl Est GFR ( Amer) Est GFR (Non-Af Amer) POC Glucose (mg/dL) 177 H (65-110) mg/dL Random Glucose (75-110) mg/dL Calcium (8.4-10.2) mg/dL Total Bilirubin (0.2-1.3) mg/dl AST (17-59) U/L ALT (21-72) U/L Alkaline Phosphatase (38-126) U/L Total Protein (6.3-8.2) G/DL Albumin (3.5-5.0) g/dL Globulin (2.2-3.9) gm/dL Albumin/Globulin Ratio (1.0-2.1) Blood Type Antibody Screen Crossmatch BBK History Checked Laboratory Results - last 24 hr 01/17/18 01/17/18 01/17/18 11:44 16:09 21:39 WBC RBC Hgb Hct MCV MCH MCHC RDW Plt Count Sodium Potassium Chloride Carbon Dioxide Anion Gap BUN Creatinine Est GFR ( Amer) Est GFR (Non-Af Amer) POC Glucose (mg/dL) 177 H 169 H 151 H Random Glucose Calcium Total Bilirubin AST ALT Alkaline Phosphatase Total Protein Albumin Globulin Albumin/Globulin Ratio Blood Type Antibody Screen Crossmatch BBK History Checked 01/18/18 01/18/18 01/18/18 04:45 04:45 05:05 WBC 0.2 L* RBC 2.24 L Hgb 6.7 L Hct 20.0 L MCV 89.2 MCH 30.1 MCHC 33.7 RDW 16.9 H Plt Count 3 L* D Sodium 154 H Potassium 3.2 L Chloride 119 H Carbon Dioxide 24 Anion Gap 14 BUN 107 H* Creatinine 2.8 H Est GFR ( Amer) 27 Est GFR (Non-Af Amer) 22 POC Glucose (mg/dL) 131 H Random Glucose 121 H Calcium 6.9 L Total Bilirubin 1.2 AST 29 ALT 28 Alkaline Phosphatase 62 Total Protein 4.3 L Albumin 1.8 L D Globulin 2.4 Albumin/Globulin Ratio 0.8 L Blood Type Antibody Screen Crossmatch BBK History Checked 01/18/18 07:10 WBC RBC Hgb Hct MCV MCH MCHC RDW Plt Count Sodium Potassium Chloride Carbon Dioxide Anion Gap BUN Creatinine Est GFR ( Amer) Est GFR (Non-Af Amer) POC Glucose (mg/dL) Random Glucose Calcium Total Bilirubin AST ALT Alkaline Phosphatase Total Protein Albumin Globulin Albumin/Globulin Ratio Blood Type O POSITIVE Antibody Screen Negative Crossmatch See Detail BBK History Checked Patient has bt Fingerstick Blood Sugar Results: 131 Review of Systems - Review of Systems Systems not reviewed;Unavailable: Altered Mental Status Critical Care Progress Note - Nutrition Nutrition: Nutrition Category Date Time Status Dysphagia/Modified Consistency Diet [DIET] Diets 01/17/18 Breakfast Active Assessment/Plan - Assessment and Plan (Free Text) Assessment: 77 y/o M with a PMHx of DM 2, R first toe osteomylitis, MDS w/ secondary pancytopenia admitted for management of DKA as pt has been persistently vomiting for 3 days after initiating daily MDS therapy 4 days ago. Pt progressively debilitating, with acute kidney injury, persistent pancytopenia despite PRBC/platelet transfusion and daily Granix. Plan: >Pancytopenia -Chronic, NOT improving despite transfusion and Granix. -Secondary to MDS. -On Iron supplement and Granix daily -Hematology on board, Dr Pace -Platelets transfusion yesterday. -PRBC's transfusion today. >Hypotension -1 bolus of NS administered this morning -Norepinephrine drip initiated -Monitor BP >DM 2 -Insulin SC ACHS, Glipizide PO -Monitor BMP -Hypoglycemia protocol -Endocrinology consult, Dr Whitney. >GI Bleeding -Melena is present. -Repeated CT scan: Mac colitis, possible cirrhosis and b/l lower pneumonia. -GI on board, Dr Bowens. No intervention recommended. >Acute Kidney Injury -Persistent elevated BUN/Creat, but trending down. -Possibly due to dehydration/acute on CKD -Nephrology consult, Dr Phoenix >Hypokalemia -PRBC's transfusion, today. -Monitor BMP >Hypernatremia/Hyperchloremia -Considering changing IV fluids to D5W or placing a NG tube with water flushing. >Mac-Colitis -ID on consult, Dr Bright -Meropenem was initiated as per ID. >Myelodysplastic Syndrome -Hematology on consult, Katelynn. 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 -Podiatry on consult. >DVT prophylaxis -SCD's - Date & Time Date: 01/18/18 Time: 11:10 <Shade Van - Last Filed: 01/19/18 06:34> CCU Subjective - Physician Review Subjective (Free Text): Attestation: Patient seen and examined at the bedside with Resident Dr. Susana Brown; and I agree with his outline of plans and management documented below as discussed on AM rounds reflecting my review of all applicable clinical data, and participation in the care of the patient throughout the day in ICU; today, January 18, 2018.
[2018-01-18] MEDS ORDERED: Chlorhexidine Gluconate 1 APPL/PKT TP ONE (10:56)
--- NOTE | 2018-01-18 16:01 | PN ---
DATE: 01/18/2018 ENDO FOLLOWUP NOTE LOCATION: In room 424, ICU. SUBJECTIVE: This is a 77-year-old male with recent admission for acute renal failure and marked metabolic acidosis and has since then improved clinically and metabolically with vigorous IV hydration and intensive insulin therapy as given. However, he continues to have persistent hypernatremia, currently on dextrose and D5W infusion as given. His glycemic levels are fluctuating, but much improved at this time and the latest glucose levels overnight have ranged from 131 to 151 mg/dL. LABORATORY DATA: His latest chemistry showed a BUN of 107, creatinine of 2.8, sodium 154, potassium 3.2, chloride 119, CO2 of 24, and glucose 121. ASSESSMENT AND PLAN: So at this time, we will continue the glipizide given as 10 mg b.i.d. before meals as ordered. We will continue the very low dose correction scale using NovoLog insulin as given. We will obtain serial chemistries and supplement accordingly as needed. He also has received chemotherapy as part of his regimen for myelodysplastic syndrome and developed pancytopenia, currently being followed closely by Hematology and Oncology. We will obtain serial chemistries and supplement accordingly as needed. We will follow with you. Umu Whitney MD
--- NOTE | 2018-01-18 16:19 | CP.PCM.PCO ---
Addendum Addendum: 01/18/18 16:11 Family meeting held this afternoon at 15:00. In attendance were daughter, 2 sons, nephew, Dr. Brown, Dr. Jefferson, and Dr. Luevano. A detailed discussion was conducted regarding patient's condition on admission and current status. Family verbalized understanding and reiterated patient's wishes with them. Family decided that patient has had a full life and is prepared for what comes after. Family in a consensus decision choose to have patient as comfortable as possible without further medical management with medication or machines. Reported to family the imminent nature of the patient's condition. Family is aware and ultimately agree with comfort measures.
[2018-01-18] MEDS ORDERED: HYDROmorphone 0.5 mg/0.5 ml ISec IVP SCH (18:00)
[2018-01-18 23:56] VITALS: TEMP 98.2
[2018-01-19] MEDS: Pantoprazole 40 MG in Sodium Chloride 0.9% 100 ML IVPB SCH ×2 (00:46→05:06)
[2018-01-19] MEDS: Morphine 15 mg SR Tab PO SCH (05:08)
[2018-01-19 06:39] VITALS: RESP 22; O2SAT 96
--- NOTE | 2018-01-19 06:52 | CP.PCM.PRO ---
Pronouncement of Note - Clinical Findings Physical Exam: No Response Verbal/Painful Stimuli, Absent Peripheral Pulses{ Carotid & Femoral}, Absent Heart & Breath Sounds, No Pupillary Light Reflex, No Corneal Reflex, Pupils Fixed & Dilated, Absence of Vital Signs - Pronouncement Time Time of Pronouncement of : 06:33 - Notifications Pronouncement Notifications: Family Notified, Atending Notified Machine Lay Out Worker Notified: No - Autopsy Autopsy Requested: No - [place] [id number]
[2018-01-19 06:54] VITALS: BP 65/47; PULSE 112
--- NOTE | 2018-01-19 09:33 | CP.PCM.DIS ---
Provider - Provider Date of Admission: 01/11/18 16:35 Attending physician: Karina Luevano MD Time Spent in preparation of Discharge (in minutes): 15 Diagnosis - Discharge Diagnosis (1) Upper GI hemorrhage Status: Acute (2) Colitis Status: Acute (3) MDS (myelodysplastic syndrome) Status: Chronic (4) DKA (diabetic ketoacidoses) Status: Acute (5) MECHELLE (acute kidney injury) Status: Acute (6) Diabetes mellitus Status: Chronic Hospital Course - Lab Results Lab Results: Micro Results 01/11/18 14:05 Blood Blood Culture - Final NO GROWTH AFTER 5 DAYS 01/11/18 14:05 Blood Gram Stain - Final TEST NOT PERFORMED 01/11/18 14:44 Blood Blood Culture - Final NO GROWTH AFTER 5 DAYS 01/11/18 14:44 Blood Gram Stain - Final TEST NOT PERFORMED 01/12/18 21:06 Sputum Gram Stain - Final 01/12/18 21:06 Sputum Sputum Culture - Final Klebsiella Pneumoniae Ssp Pneu Yeast Species 01/11/18 08:25 Naris MRSA Culture (Admit) - Final MRSA NOT DETECTED 01/11/18 12:30 Urine Urine Culture - Final No Growth (<1,000 CFU/ML) Most Recent Lab Values WBC 0.2 K/uL (4.8-10.8) L* 01/18/18 04:45 RBC 2.24 Mil/uL (4.40-5.90) L 01/18/18 04:45 Hgb 6.7 g/dL (12.0-18.0) L 01/18/18 04:45 Hct 20.0 % (35.0-51.0) L 01/18/18 04:45 MCV 89.2 fl (80.0-94.0) 01/18/18 04:45 MCH 30.1 pg (27.0-31.0) 01/18/18 04:45 MCHC 33.7 g/dL (33.0-37.0) 01/18/18 04:45 RDW 16.9 % (11.5-14.5) H 01/18/18 04:45 Plt Count 3 K/uL (130-400) L* D 01/18/18 04:45 MPV 8.9 fl (7.2-11.7) 01/12/18 08:25 Neut % (Auto) 68.1 % (50.0-75.0) 01/12/18 08:25 Lymph % (Auto) 29.4 % (20.0-40.0) 01/12/18 08:25 [place] % (Auto) 2.1 % (0.0-10.0) 01/12/18 08:25 Eos % (Auto) 0.3 % (0.0-4.0) 01/12/18 08:25 Baso % (Auto) 0.1 % (0.0-2.0) 01/12/18 08:25 Neut # (Auto) 0.6 K/uL (1.8-7.0) L 01/12/18 08:25 Lymph # (Auto) 0.3 K/uL (1.0-4.3) L 01/12/18 08:25 [place] # (Auto) 0.0 K/uL (0.0-0.8) 01/12/18 08:25 Eos # (Auto) 0.0 K/uL (0.0-0.7) 01/12/18 08:25 Baso # (Auto) 0.0 K/uL (0.0-0.2) 01/12/18 08:25 PT 12.5 Seconds (9.8-13.1) 01/11/18 13:37 INR 1.1 (0.9-1.2) 01/11/18 13:37 APTT 33.6 Seconds (25.6-37.1) 01/11/18 13:37 pO2 15 mm/Hg (30-55) L 01/11/18 14:00 VBG pH 7.11 (7.32-7.43) L* 01/11/18 14:00 VBG pCO2 40 mmHg (40-60) 01/11/18 14:00 VBG HCO3 9.9 mmol/L 01/11/18 14:00 VBG Total CO2 13.9 mmol/L (22-28) L 01/11/18 14:00 VBG O2 Sat (Calc) 29.5 % (40-65) L 01/11/18 14:00 VBG Base Excess -16.2 mmol/L (0.0-2.0) L 01/11/18 14:00 VBG Potassium 6.5 mmol/L (3.6-5.2) H* 01/11/18 14:00 Sodium 129.0 mmol/L (132-148) L 01/11/18 14:00 Chloride 101.0 mmol/L (98-107) 01/11/18 14:00 Glucose 417 mg/dL (75-110) H* D 01/11/18 14:00 Lactate 2.9 mmol/L (0.7-2.1) H 01/11/18 14:00 FiO2 21.0 % 01/11/18 14:00 Crit Value Called To Dr barnard 01/11/18 14:00 Crit Value Called By Rt 01/11/18 14:00 Crit Value Read Back Y 01/11/18 14:00 Blood Gas Notified Time 1428 01/11/18 14:00 Sodium 154 mmol/l (132-148) H 01/18/18 04:45 Potassium 3.2 MMOL/L (3.6-5.0) L 01/18/18 04:45 Chloride 119 mmol/L (98-107) H 01/18/18 04:45 Carbon Dioxide 24 mmol/L (22-30) 01/18/18 04:45 Anion Gap 14 (10-20) 01/18/18 04:45 BUN 107 mg/dl (9-20) H* 01/18/18 04:45 Creatinine 2.8 mg/dl (0.8-1.5) H 01/18/18 04:45 Est GFR ( Amer) 27 01/18/18 04:45 Est GFR (Non-Af Amer) 22 01/18/18 04:45 POC Glucose (mg/dL) 95 mg/dL (65-110) 01/18/18 21:13 Random Glucose 121 mg/dL (75-110) H 01/18/18 04:45 Hemoglobin A1c 7.3 % (4.2-6.5) H 01/13/18 04:12 Lactic Acid 1.0 MMOL/L (0.7-2.1) 01/12/18 08:25 Calcium 6.9 mg/dL (8.4-10.2) L 01/18/18 04:45 Phosphorus 7.2 mg/dl (2.5-4.5) H 01/13/18 04:12 Total Bilirubin 1.2 mg/dl (0.2-1.3) 01/18/18 04:45 AST 29 U/L (17-59) 01/18/18 04:45 ALT 28 U/L (21-72) 01/18/18 04:45 Alkaline Phosphatase 62 U/L (38-126) 01/18/18 04:45 Total Protein 4.3 G/DL (6.3-8.2) L 01/18/18 04:45 Albumin 1.8 g/dL (3.5-5.0) L D 01/18/18 04:45 Globulin 2.4 gm/dL (2.2-3.9) 01/18/18 04:45 Albumin/Globulin Ratio 0.8 (1.0-2.1) L 01/18/18 04:45 TSH 3rd Generation 3.69 mIU/ML (0.46-4.68) 01/13/18 04:12 PTH Intact Whole Molec 291 pg/mL (14-64) H 01/13/18 04:12 Venous Blood Potassium 6.5 mmol/L (3.6-5.2) H* 01/11/18 14:00 Urine Color Yellow (YELLOW) 01/11/18 12:30 Urine Clarity Cloudy (Clear) 01/11/18 12:30 Urine pH 5.0 (5.0-8.0) 01/11/18 12:30 Ur Specific [place] 1.018 (1.003-1.030) 01/11/18 12:30 Urine Protein 100 mg/dL (NEGATIVE) 01/11/18 12:30 Urine Glucose (UA) 50 mg/dL (Normal) 01/11/18 12:30 Urine Ketones Negative mg/dL (NEGATIVE) 01/11/18 12:30 Urine Blood Large (NEGATIVE) 01/11/18 12:30 Urine Nitrate Negative (NEGATIVE) 01/11/18 12:30 Urine Bilirubin Negative (NEGATIVE) 01/11/18 12:30 Urine Urobilinogen 0.2-1.0 mg/dL (0.2-1.0) 01/11/18 12:30 Ur Leukocyte Esterase Trace Patric/uL (Negative) 01/11/18 12:30 Urine RBC (Auto) 168 /hpf (0-3) H 01/11/18 12:30 Urine Microscopic WBC 11 /hpf (0-5) H 01/11/18 12:30 Ur Squamous Epith Cells 2 /hpf (0-5) 01/11/18 12:30 Urine Bacteria Rare (<OCC) 01/11/18 12:30 Hyaline Casts 6-10 /hpf (0-2) H 01/11/18 12:30 Blood Type O POSITIVE 01/18/18 07:10 Antibody Screen Negative 01/18/18 07:10 Crossmatch See Detail 01/18/18 07:10 BBK History Checked Patient has bt 01/18/18 07:10 - Hospital Course Hospital Course: 77 yo male with PMH of CKD, HTN, DM type 2, Chronic Right great toe Ulceration with osteomyeolitis, hemorrhoids, myelodysplasitc syndrome with secondary pancytopenia on chemo started 5 days ago, he was sent from his [place] [facility] ( [facility]) due to constant vomiting for the past 3 days. Patient evaluated and monitored in ICU. Patient started on IV fluids, antibiotics, PRBC , FFP and platelets transfusion, pain medications as per recommandations. ID, Heme/onc, GI, podiatry, recycling or rubbish collector, endocrine, truck sales manager, wound care and vascular surgery on board. Patient continue to worsen dispite of medical/ surgical management. DNR/DNI signed on 01/18. Patient at 6:33 AM on 2017. pronounced by Dr. Van. Discharge Exam - Eye Exam Additional comments: No Pupillary Light Reflex, No Corneal Reflex, Pupils Fixed & Dilated, Absence of Vital Signs - Respiratory Exam Additional comments: Abscent breath sounds - Cardiovascular Exam Additional comments: Absent Peripheral Pulses{Carotid & Femoral} - Extremities Exam Additional comments: No femoral pulse - Neurological Exam Additional comments: No Response Verbal/Painful Stimuli Discharge Plan - Follow Up Plan Condition: Disposition: WITH WITHOUT AUTOPSY Patient education suggested?: No
--- NOTE | 2018-01-19 12:58 | CP.PCM.PN ---
Subjective - Date & Time of Evaluation Date of Evaluation: 01/18/18 Time of Evaluation: 12:00 - Subjective Subjective: Fatigued, NG tube placed. Objective - Vital Signs/Intake and Output Vital Signs (last 24 hours): Temp Pulse Resp BP Pulse Ox 98.2 F 112 H 22 65/47 L 96 01/19/18 00:00 01/19/18 06:00 01/19/18 06:00 01/19/18 06:00 01/19/18 04:00 Intake and Output: 01/19/18 01/19/18 06:59 18:59 Intake Total 804 Output Total 1 Balance 803 - Labs Labs: 01/18/18 04:45 01/18/18 04:45 PT 12.5 Seconds (9.8-13.1) 01/11/18 13:37 INR 1.1 (0.9-1.2) 01/11/18 13:37 APTT 33.6 Seconds (25.6-37.1) 01/11/18 13:37 - Head Exam Head Exam: ATRAUMATIC - Eye Exam Eye Exam: Normal appearance - ENT Exam ENT Exam: Mucous Membranes Dry - Respiratory Exam Respiratory Exam: NORMAL BREATHING PATTERN - Cardiovascular Exam Cardiovascular Exam: +S1, +S2 - GI/Abdominal Exam GI & Abdominal Exam: Normal Bowel Sounds Assessment and Plan (1) Pancytopenia Assessment & Plan: secondary to MDS growth factor/transfusion support Status: Acute (2) Myelodysplasia (myelodysplastic syndrome) Assessment & Plan: growth factor/transfusion support Status: Chronic
--- NOTE | 2018-01-25 17:17 | PQF ---
PROVIDER RESPONSE TEXT: Sepsis was most likely present on admission, due to coilitis REVIEWER QUERY TEXT: Rule Out Sepsis Clarification Sepsis is documented in the Medical Record. Please clarify whether: -- Patient has sepsis - Please document confirmed, suspected or probable causative organism - Please document confirmed, suspected or probable localized infection - Please clarify if sepsis is related to a device - Please clarify if sepsis was present on admission -- Sepsis was ruled out (include corresponding diagnosis for patient?s clinical picture and treatment ) -- Patient had sepsis which is resolved -- Other, please specify The patient's Clinical Indicators include: 01/[address] Bright, 01/[address] Pace Query created by: Michelle Carlton on 01/22/2018 1:12 PM PROVIDER RESPONSE TEXT: Pt had chronic osteomyelitis of his r Hallux REVIEWER QUERY TEXT: Conflicting Documentation Clarification A single mention or documentation of multiple diagnoses for the same clinical presentation appears in the record. Please clarify the diagnosis/diagnoses: osteomyelitis Please also document if the condition is: -- Confirmed and current -- Confirmed, treated and resolved -- Ruled out -- Other, please specify The patient's Clinical Indicators include: osteomyelitis rt hallux Query created by: Michelle Carlton on 01/22/2018 1:15 PM Electronically signed by: 01/25/2018 5:15 PM
--- NOTE | 2018-01-25 17:25 | PQF ---
PROVIDER RESPONSE TEXT: Stage 2 and DTI were present on the sacrum REVIEWER QUERY TEXT: Skin Ulcer Type and Severity Sacral ulcer stage 2 is documented in the Medical Record. Please specify the type and severity Such as: Type: -- Pressure ulcer -- Diabetic skin ulcer -- Venous stasis ulcer -- Other, please specify Severity: -- Limited to breakdown of skin -- With fat layer exposure -- With necrosis of muscle -- With necrosis of bone -- Other, please specify The patient's Clinical Indicators include: 01/[address] Bright sacral ulcer stage 2. Query created by: Michelle Carlton on 01/22/2018 1:17 PM Electronically signed by: Karina Luevano MD 01/25/2018 5:23 PM
--- NOTE | 2018-01-25 18:17 | PQF ---
PROVIDER RESPONSE TEXT: Sepsis was present on admission REVIEWER QUERY TEXT: Present On Admission It is unclear whether sepsis diagnosis was present on admission. Your help is needed. Please clarif y the POA status Such as: -- Present on admission -- Not present on admission The patient's Clinical Indicators include: hypotension Query created by: Michelle Carlton on 01/22/2018 1:13 PM Electronically signed by: 01/25/2018 6:13 PM
== END 2018-01-19 09:54 | disposition home or self-care (01) | DRG 584 ==
LOC: H.ER 11:25 → H.ERHOLD 16:35 → H.ICU/CCU 17:30
PROVIDERS: ADMIT Family Medicine Geriatric Medicine; ATTEND Family Medicine Geriatric Medicine
PROC: 30233K1 Transfusion of Nonautologous Frozen Plasma into Peripheral Vein, Percutaneous Approach (ICD-10-PCS; principal; 2018-01-13)
PROC: 30233N1 Transfusion of Nonautologous Red Blood Cells into Peripheral Vein, Percutaneous Approach (ICD-10-PCS; 2018-01-13)
PROC: 6A551Z2 Pheresis of Platelets, Multiple (ICD-10-PCS; 2018-01-13)
DX: A41.9 Sepsis, unspecified organism (principal); N17.9 Acute kidney failure, unspecified; L89.152 Pressure ulcer of sacral region, stage 2; E11.52 Type 2 diabetes mellitus with diabetic peripheral angiopathy with gangrene; I96 Gangrene, not elsewhere classified; D61.818 Other pancytopenia; E87.5 Hyperkalemia; L97.519 Non-pressure chronic ulcer of other part of right foot with unspecified severity; K92.1 Melena; L97.429 Non-pressure chronic ulcer of left heel and midfoot with unspecified severity; K92.0 Hematemesis; E87.0 Hyperosmolality and hypernatremia; E87.6 Hypokalemia; N18.4 Chronic kidney disease, stage 4 (severe); E11.22 Type 2 diabetes mellitus with diabetic chronic kidney disease; E11.10 Type 2 diabetes mellitus with ketoacidosis without coma; E11.319 Type 2 diabetes mellitus with unspecified diabetic retinopathy without macular edema; E11.21 Type 2 diabetes mellitus with diabetic nephropathy; E11.42 Type 2 diabetes mellitus with diabetic polyneuropathy; E11.51 Type 2 diabetes mellitus with diabetic peripheral angiopathy without gangrene; E11.621 Type 2 diabetes mellitus with foot ulcer; E11.69 Type 2 diabetes mellitus with other specified complication; R65.20 Severe sepsis without septic shock; E86.0 Dehydration; D46.9 Myelodysplastic syndrome, unspecified; K64.4 Residual hemorrhoidal skin tags; K59.00 Constipation, unspecified; C94.6 Myelodysplastic disease, not elsewhere classified; E78.5 Hyperlipidemia, unspecified; I25.10 Atherosclerotic heart disease of native coronary artery without angina pectoris; K51.00 Ulcerative (chronic) pancolitis without complications; G93.41 Metabolic encephalopathy; I12.9 Hypertensive chronic kidney disease with stage 1 through stage 4 chronic kidney disease, or unspecified chronic kidney disease; Z66 Do not resuscitate; Z51.5 Encounter for palliative care; M86.671 Other chronic osteomyelitis, right ankle and foot